=== PATIENT | female | born 1975 | race Caucasian/White ===

== ENCOUNTER 2016-08-22 14:40 | Inpatient (IN) | payer OTHER ==
[2016-08-22] MEDS ORDERED: LACTATED RINGERS 1,000 ML ONE (15:27)
[2016-08-22] MEDS ORDERED: BICITRA PO ONE (16:09)
[2016-08-22] MEDS ORDERED: PEPCID IV ONE (16:09)
[2016-08-22] MEDS ORDERED: REGLAN IV ONE (16:09)
[2016-08-22 16:32] LABS: Basophils % (Auto) 0.8 % (0.0-1.8); Eosinophils % (Auto) 0.1 % (0.0-4.3); Hematocrit 33.8 % (30.3-42.9); Hemoglobin 11.5 gm/dl (10.1-14.3); Mean Corpuscular HGB Conc 34 % (30-34); Mean Corpuscular Hemoglobin 32 pg (28-32); Mean Corpuscular Volume 93 fl (79-97); Platelet Count 137 K/mm3 (140-440); Red Blood Count 3.64 M/mm3 (3.65-5.03); White Blood Count 10.1 K/mm3 (4.5-11.0)
--- NOTE | 2016-08-22 16:34 | History and Physical Report ---
History of Present Illness Date of examination: 08/22/16 History of present illness: 42 EDC 31.2 weeks gestation presented to triage with c/o no FM since yesterday and generalized malaise. Voice early entry into care. Experienced small amount of first trimester vaginal bleeding with Rhogam and routine Rhogam at 28 weeks gestation. Denies any complications other than persistent hyperemesis x 7 days a week ago. Seen at office and diagnosis on flu given and Rx for Tamaflu started. Denies vaginal bleeding or LOF. Voice 20 week U/S was WNL. Denies history of CHTN, diabeties, PE, DVT. asthma, seizures, cancer, STI, recent travel abroad, surgeries or blood transfusions. Past History Past Medical History: no pertinent history Past Surgical History: no surgical history Social history: no significant social history, - Obstetrical History Expected Date of Delivery: 10/22/16 Actual Gestation: 31 Week(s) 2 Day(s) : 3 Para: 2 Number of Living Children: 2 Medications and Allergies Allergies Allergy/AdvReac Type Severity Reaction Status Date / Time No Known Allergies Allergy Verified 08/22/16 15:18 Home Medications Medication Instructions Recorded Confirmed Last Taken Type Acetaminophen [Shake That Ache] 500 mg PO Q6HR 08/22/16 08/22/16 08/22/16 09:00 History 1 Mucinex Dm ER 1,200-60 mg Tab 1 tab PO BID 08/22/16 08/22/16 08/22/16 09:00 History 1 Oseltamivir [Tamiflu] 75 mg PO BID 08/22/16 08/22/16 08/22/16 09:00 History 1 Pnv95/Ferrous Fumarate/FA 1 each PO DAILY 08/22/16 08/22/16 08/22/16 09:00 History [Prenavite Tablet] 1 Ranitidine HCl [Acid Control] 150 mg PO BID 08/22/16 08/22/16 08/22/16 09:00 History 1 Active Meds: Active Medications Cefazolin Sodium (Ancef/Sterile Water 2 Gm/20 Ml) 20 mls @ 80 mls/hr IV PREOP NR PRN Reason: Protocol Stop: 08/23/16 16:59 Lactated Ringer's (Lactated Ringers) 1,000 mls @ 2,250 mls/hr IV PREOP NR Stop: 08/23/16 17:27 Oxytocin/Sodium Chloride (Pitocin/Ns 20 Unit/1000ml Drip) 1,000 mls @ 500 mls/ hr IV TITR NR Stop: 08/23/16 16:59 Review of Systems Constitutional: anorexia, fatigue, weakness, malaise, lethargy, poor appetite, no fever Breasts: deferred Gastrointestinal: nausea, vomiting Genitourinary: normal appearance - Vital Signs Vital signs: Vital Signs Pulse BP 86 124/66 08/22/16 15:14 08/22/16 15:14 Temp Pulse Resp BP Pulse Ox 97.7 F 92 H 20 124/66 96 08/22/16 15:52 08/22/16 16:30 08/22/16 15:52 08/22/16 15:14 08/22/16 16:30 - Physical Exam Lungs: Positive: Normal air movement Abdomen: Positive: normal appearance, tenderness Genitourinary (Female): Positive: normal external genitalia Vagina: Positive: normal moisture - Obstetrical FHR: category 3 Uterine Contraction Monitor Mode: External Cervical Dilatation: 1 Cervical Effacement Percentage: 0 station: -4 Uterine Contraction Pattern: Irregular Uterine Tone Measurement Phase: Resting Uterine Contraction Intensity: Mild Results Result Diagrams: 08/22/16 18:48 All other labs normal. Assessment and Plan A: IUP at 31.2 weeks gestation Absent FM x 24 hours Maternal Flu None Kazakh speaker Rh negative Category 3 tracing BPP 2/10 Abnormal U/S enlarge abdomen P: MD consult Stat C/S
[2016-08-22] MEDS ORDERED: MORPHINE ONE (16:43)
[2016-08-22] MEDS ORDERED: DIPRIVAN 10 MG/ML IV ONE (16:58)
[2016-08-22] MEDS ORDERED: LACTATED RINGERS 1,000 ML IV NR (17:00)
[2016-08-22] MEDS ORDERED: PITOCin/NS 20 UNIT/1000ML DRIP 1,000 ML IV NR (17:00)
[2016-08-22] MEDS ORDERED: ANCEF/STERILE WATER 2 GM/20 ML 20 ML IV NR (17:00)
[2016-08-22] MEDS ORDERED: METHERGINE IM ONE ×2 (17:05→17:24)
--- NOTE | 2016-08-22 17:11 | Ultrasound Report ---
FINAL REPORT PROCEDURE: US OB BPP WO NON-STRESS TECHNIQUE: Sonographic evaluation for breathing, movement, tone, and amniotic fluid volume was performed. CPT 97668 HISTORY: decreased movement COMPARISON: No prior studies are available for comparison. FINDINGS: Amniotic fluid volume: Normal-score 2. At least one vertical pocket > 2 cm or more in vertical axis. breathing: Abnormal, score 0 movement: Abnormal, score 0 tone: Abnormal, score 0 Score: 2 of 8 IMPRESSION: Abnormal biophysical profile, with total score 2 of 8.
[2016-08-22] MEDS ORDERED: TORADOL ONE (17:15)
[2016-08-22] MEDS ORDERED: NEO SYNEPHRINE ONE (17:15)
--- NOTE | 2016-08-22 17:16 | Ultrasound Report ---
FINAL REPORT PROCEDURE: US OB FOLLOW UP TECHNIQUE: Real-time limited sonographic examination was performed for evaluation of size, position, heartbeat, fluid volume for each fetus with image documentation (1 or more fetuses). CPT 79066 HISTORY: well-being COMPARISON: No prior studies are available for comparison. FINDINGS: FETUS IUP: Single living intrauterine . Position: Cephalic. Amniotic fluid volume: Amniotic fluid index measures 13.1 centimeters Heart rate and rhythm: 130 BPM, Regular . anatomic survey: Full survey was not performed. Note is made of ascites and pleural effusion. Limited evaluation of the placenta. MEASUREMENTS BPD: 8.3 centimeters, 33 weeks 2 days. HC: 30 centimeters, 33 weeks 2 days. AC: 33.6 centimeters, 37 weeks 4 days. This is likely increased related to ascites. FL: 5.7 centimeters, 29 weeks 6 days. Mean Gestational Age (composite criteria): 33 weeks 4 days based on biometry. Ratio biometry: Increased abdominal circumference. Estimated Weight: 2497 grams. Estimated Due Date (earliest scan): 10/06/2016. IMPRESSION: 1. Single living intrauterine gestation at approximately 33 weeks 4 days. 2. EDC by US 10/06/2016. 3. ascites and pleural effusion are noted
[2016-08-22] MEDS ORDERED: CYTOTEC ONE (17:22)
[2016-08-22] MEDS ORDERED: CYTOTEC PO ONE (17:24)
[2016-08-22 17:41] LABS: ISTAT Base Excess -13; ISTAT HCO3 15.9; ISTAT PCO2 49.2 (35-45); ISTAT PH 7.117 (7.35-7.45); ISTAT PO2 20 (80-105); ISTAT SO2 19; ISTAT TCO2 17
[2016-08-22] MEDS ORDERED: NACL 0.9% IR ONE (17:43)
[2016-08-22] MEDS ORDERED: WATER FOR IRRIG STERILE IR ONE (17:44)
[2016-08-22 17:46] LABS: ISTAT Base Excess -19; ISTAT HCO3 11.4; ISTAT PCO2 38.7 (35-45); ISTAT PH 7.078 (7.35-7.45); ISTAT PO2 25 (80-105); ISTAT SO2 28; ISTAT TCO2 13
--- NOTE | 2016-08-22 18:17 | Anesthesia Consultation ---
Anesthesia Consult and Med Hx Date of service: 08/22/16 - Airway Anesthetic Teeth Evaluation: Good ROM Head & Neck: Adequate Mental/Hyoid Distance: Adequate Mallampati Class: Class II Intubation Access Assessment: Good - Pulmonary Exam CTA: Yes - Cardiac Exam Cardiac Exam: No Murmur - Pre-Operative Health Status ASA Pre-Surgery Classification: ASA2 Proposed Anesthetic Plan: Spinal - Pulmonary Hx Asthma: No COPD: No Hx Pneumonia: No - Cardiovascular System Hx Hypertension: No - Central Nervous System Hx Seizures: No Hx Psychiatric Problems: No - Endocrine Hx Renal Disease: No Hx End Stage Renal Disease: No Hx Hypothyroidism: No Hx Hyperthyroidism: No - Hematic Hx Anemia: No - Other Systems Hx Alcohol Use: No
--- NOTE | 2016-08-22 18:17 | Post Anesthesia Evaluation ---
- Post Anesthesia Evaluation Patient Participated: Yes Airway Patent: Yes Stable Respiratory Function: Yes Nausea/Vomiting: No Temp > 96.8F: Yes Pain Manageable: Yes Adequeate Hydration: Yes Anesthesia Complications: No
[2016-08-22] MEDS ORDERED: LANSINOH TP PRN (18:28)
[2016-08-22] MEDS ORDERED: PERCOCET 5/325 PO PRN ×2 (18:28→18:56)
[2016-08-22] MEDS ORDERED: MOTRIN PO PRN (18:28)
[2016-08-22] MEDS ORDERED: TYLENOL PO PRN (18:28)
[2016-08-22] MEDS ORDERED: TUCKS PAD TP PRN (18:28)
[2016-08-22] MEDS ORDERED: NARCAN 0.4 MG/1 ML IV PRN (18:28)
--- NOTE | 2016-08-22 18:54 | Operative Report ---
Operative Report Operative Report: Date of operation 08/22/16 Diagnosis #1 Intrauterine gestation at 31+ weeks #2 NRFHT #3 viral infection #4 BPP 09/11 #5 meconium Postop diagnosis #1-6 same as above #7 delivery of viable fetus male infant operation performed primary low segment transverse #9 PP hemorrhage #10 uterine atony Surgeon :Dr. Melton Anesthesia: General Anesthesiologist: Dr. Mendoza Estimated blood loss 1200 mL Lindsey catheter to bladder 400 mL clear yellow urine Operative findings A viable male infant with Apgars 1 and 3 and 5 and 7 was delivered, amnionic fluid was dark green, the uterus fallopian tubes and ovaries were normal Description of the operation The patient was brought to the operating suite in stable condition in which a spinal performed . Indwelling catheter in place and the bladder. The patient was placed supine in the operating room table and rolled to her left side with a wedge next sentence the abdomen was prepped and draped in an normal standard fashion for next sentence after testing with forceps to assure adequate anesthetic level which was adequate. The surgery was commenced since we had counseled the patient extensively regarding the risk of surgery including but not limited to stroke embolus phlebitis pain infection hemorrhage as well as injury to the and internal organs such as the bowel bladder blood vessels no kidneys ureters and pelvic organs The patient was aware of the postop morbidity issues and recovery time frames. The patient was aware she can have adhesions which can result in obstruction of loop of bowel or ureter or chronic pain And that she was aware that she should have hemorrhage and required blood transfusion the small chance of exposure to hepatitis or HIV disease. With the scalpel in a sterile skin incision was made dissection was carried out to the sharply with the to the subcutaneous tissues and fascia in a transverse plane with the scalpel electrocautery and curved Jain's scissors were used to fashion was sharply freed up superiorly and inferiorly from the underlying rectus muscles which were bluntly and sharply divided the peritoneum was entered carefully in a clear space with the curved hemostat the peritoneal incision was then extended vertically with the Metzenbaum scissors were placed. A bladder flap was created by incising transversely through the peritoneum and vesicouterine fold and then bluntly dissecting the bladder distally. With the scalpel a low transverse hysterotomy was commenced. The myometrium was scored with the scalpel and the uterine cavity was actually entered bluntly with a curved hemostat the period the uterine incision was then extended laterally with the wastewater treatment plant operator's fingers. An intrauterine hand was placed and the buttocks was lifted and delivered brought through the pelvis and the uterine incision with gentle pressure the head was also delivered after the arms the left and the right arms were delivered the nasopharynx and oropharynx was suctioned cord was double clamped and transected was then handed off to awaiting Peds service noticeable large abdomen, Cord blood was collected for routine testing IV Pitocin and antibiotics were also administered and approximately given previous to the case. The placenta was manually removed ( large and green in appearance )the uterine cavity was then curettage which a dry sponge and freed of the remaining membranes. The edge of the uterine incision was grasped with Palmer clamps with the massage and Pitocin the uterus began to firm up normally. The uterine incision was then closed in 2 layers of 0 Vicryl sutures. The first uterine suture was then placed in the endometrium and the myometrium the second suture placed through the endopelvic fascia and also reincorporated the bladder flap peritoneum. an extension on the left side of uterus repaired with a 2-0 vicryl and surgicell for hemostais. Peritoneal lavage was then performed at the incision the pelvis and gutters were irrigated and the suction and cleared of all blood clots and amniotic fluid. The pelvis and gutters were irrigated and suctioned and cleared of all blood clots and amniotic fluid. Uterine incision was then reinspected and assure hemostasis. The uterus, tubes and ovaries were inspected and were normal. The uterus was noted to be floppy and boggy so we gave methergine Im and metherergine intrautuerine . Once we were satisfied with hemostasis attention was then turned to closure of the abdomen incision. The fascia was closed with a PDS and 2-0 vcryl closed subcutaneous >2cm and skin was closed with a staple followed by benzoin Telfa dressing. The patient was moved to the recovery room in stable condition with the Lindsey catheter draining clear yellow urine instruments sponge and needle counts correct 2 and estimated blood loss was 1200 mL's there were no complications.
--- NOTE | 2016-08-22 18:58 | Procedure Note ---
OB Delivery Note - Delivery Date of Delivery: 08/22/16 Surgeon: SAE MCHUGH Estimated blood loss: other (1200 ml) - Section Preop diagnosis: nonreassuring FHR tracing Postop diagnosis: same section procedure: section Disposition: floor Complications: intra-op hemorrhage, uterine atony - Infant A at 1 minute: 1 at 5 minutes: 3 (1,3,5,6) Gender: Male
[2016-08-22] MEDS ORDERED: PITOCin/NS 20 UNIT/1000ML DRIP 1,000 ML IV SCH (19:00)
[2016-08-22] MEDS ORDERED: SODIUM CHLORIDE FLUSH SYRINGE 10 ML IV NR (19:00)
[2016-08-22 19:48] LABS: Basophils % (Auto) 0.7 % (0.0-1.8); Eosinophils % (Auto) 0.8 % (0.0-4.3); Hematocrit 34.7 % (30.3-42.9); Hemoglobin 11.3 gm/dl (10.1-14.3); Mean Corpuscular HGB Conc 33 % (30-34); Mean Corpuscular Hemoglobin 31 pg (28-32); Mean Corpuscular Volume 96 fl (79-97); Platelet Count 115 K/mm3 (140-440); Red Blood Count 3.62 M/mm3 (3.65-5.03); Red Cell Distribution Width 14.3 % (13.2-15.2); White Blood Count 13.2 K/mm3 (4.5-11.0)
--- NOTE | 2016-08-22 20:02 | Consultation ---
History of Present Illness - Reason for Consult Consult date: 08/22/16 viral syndrome Requesting physician: SAE MELTON - History of Present Illness Miss Samaniego is a 41 yo female who was admitted today by OB service for absence of movements. She had emergent done today. As per Dr. Melton the delivered infant has hydrops and the mother has a history of a viral syndrome and therefore consult is called for evaluation of the viral syndrome; as per the patient she's been having body aches with runny nose and a cough which started 3 days ago. She was started on Tamiflu. She reported that she was not tested for the flu. Past History Past Medical History: No medical history Past Surgical History: No surgical history Social history: no significant social history, Family history: no significant family history Medications and Allergies Allergies Allergy/AdvReac Type Severity Reaction Status Date / Time No Known Allergies Allergy Verified 08/22/16 15:18 Home Medications Medication Instructions Recorded Confirmed Last Taken Type Acetaminophen [Shake That Ache] 500 mg PO Q6HR 08/22/16 08/22/16 08/22/16 09:00 History 1 Mucinex Dm ER 1,200-60 mg Tab 1 tab PO BID 08/22/16 08/22/16 08/22/16 09:00 History 1 Oseltamivir [Tamiflu] 75 mg PO BID 08/22/16 08/22/16 08/22/16 09:00 History 1 Pnv95/Ferrous Fumarate/FA 1 each PO DAILY 08/22/16 08/22/16 08/22/16 09:00 History [Prenavite Tablet] 1 Ranitidine HCl [Acid Control] 150 mg PO BID 08/22/16 08/22/16 08/22/16 09:00 History 1 Active Meds: Active Medications Acetaminophen (Tylenol) 650 mg PO Q4H PRN PRN Reason: Fever >100.5/MARCUS Acetaminophen/Hydrocodone Bitart ([place] 5/325) 1 each PO Q6H PRN PRN Reason: Pain, Moderate (4-6) Diphtheria/Tetanus/Acell Pertussis (Boostrix) 0.5 ml IM .ONCE ONE Stop: 08/23/16 18:31 Ferrous Sulfate (Feosol) 325 mg PO QDAY VANESSA Cefazolin Sodium (Ancef/Sterile Water 2 Gm/20 Ml) 20 mls @ 80 mls/hr IV PREOP NR PRN Reason: Protocol Stop: 08/23/16 16:59 Lactated Ringer's (Lactated Ringers) 1,000 mls @ 2,250 mls/hr IV PREOP NR Stop: 08/23/16 17:27 Oxytocin/Sodium Chloride (Pitocin/Ns 20 Unit/1000ml Drip) 1,000 mls @ 500 mls/ hr IV TITR NR Stop: 08/23/16 16:59 Oxytocin/Sodium Chloride (Pitocin/Ns 20 Unit/1000ml Drip) 1,000 mls @ 250 mls/ hr IV TITR VANESSA Ibuprofen (Motrin) 800 mg PO Q6H PRN PRN Reason: Pain, Mild (1-3) Measles/Mumps/Rubella Vaccine Live (M-M-R Ii Vaccine) 0.5 ml SUB-Q .ONCE ONE Stop: 08/23/16 18:31 Morphine Sulfate (Morphine) 4 mg IV Q4H PRN PRN Reason: Pain , Severe (7-10) Multi-Ingredient Ointment (Lansinoh) 1 applic TP PRN PRN PRN Reason: dryness/cracking Naloxone HCl (Narcan 0.4 Mg/1 Ml) 0.1 mg IV Q2MIN PRN PRN Reason: Res Rate </= 8 or 02 SAT < 92% Oxycodone/Acetaminophen (Percocet 5/325) 1 tab PO Q6H PRN PRN Reason: Pain, Moderate (4-6) Oxycodone/Acetaminophen (Percocet 5/325) 2 tab PO Q6H PRN PRN Reason: Pain, Moderate (4-6) Sodium Chloride (Sodium Chloride Flush Syringe 10 Ml) 10 ml IV PRN NR Stop: 08/25/16 18:59 Witch Chloe/Glycerin (Tucks Pad) 1 each TP PRN PRN PRN Reason: Hemorrhoids/cleansing/soothing Review of Systems All systems: negative Constitutional: no weight loss, no weight gain, no fever Ears, nose, mouth and throat: no ear pain, no ear discharge, no tinnitis, no decreased hearing Breasts: normal Cardiovascular: no chest pain, no orthopnea, no palpitations, no rapid/ irregular heart beat Respiratory: no cough, no cough with sputum, no excessive sputum, no shortness of breath Gastrointestinal: no abdominal pain, no nausea, no vomiting, no diarrhea Menstruation: other (post c section today ) Musculoskeletal: no neck stiffness, no neck pain, no shooting arm pain Integumentary: no rash, no pruritis, no redness, no sores Neurological: no head injury, no transient paralysis, no paralysis, no weakness , no parathesias Psychiatric: no anxiety, no memory loss, no change in sleep habits, no sleep disturbances, no insomnia, no hypersomnia Endocrine: no cold intolerance, no heat intolerance, no polyphagia, no excessive thirst Hematologic/Lymphatic: no easy bruising, no easy bleeding Allergic/Immunologic: no urticaria, no allergic rhinitis Exam - Constitutional Vitals: Temp Pulse Resp BP Pulse Ox 94.5 F L 61 16 123/74 94 08/22/16 19:00 08/22/16 19:00 08/22/16 19:00 08/22/16 19:00 08/22/16 19:00 General appearance: Present: no acute distress, well-nourished - EENT Eyes: Present: PERRL, EOM intact. Absent: scleral icterus, conjunctival injection ENT: hearing intact, clear oral mucosa, no oropharyngeal erythema, no poor dentition - Neck Neck: Present: supple, normal ROM. Absent: enlarged thyroid, masses or JVD - Respiratory Respiratory effort: normal Respiratory: negative: diminished, rales, rhonchi, wheezing - Cardiovascular Rhythm: regular Heart Sounds: Present: S1 & S2 - Extremities Extremities: no ischemia, pulses intact, pulses symmetrical, No edema - Abdominal General gastrointestinal: Present: soft, non-tender, normal bowel sounds Female genitourinary: Present: deferred - Rectal Rectal Exam: deferred - Integumentary Integumentary: Present: clear - Musculoskeletal Musculoskeletal: strength equal bilaterally - Psychiatric Psychiatric: appropriate mood/affect, intact judgment & insight, cooperative - Neurologic Neurologic: CNII-XII intact, moves all extremities Results - Labs CBC & Chem 7: 08/22/16 18:48 Labs: Abnormal lab results 08/22/16 08/22/16 08/22/16 Range/Units 16:00 17:38 17:43 WBC (4.5-11.0) K/mm3 RBC 3.64 L (3.65-5.03) M/mm3 Plt Count 137 L (140-440) K/mm3 Lymph % (Auto) 12.3 L (13.4-35.0) % Seg Neutrophils % 81.9 H (40.0-70.0) % Seg Neutrophils # 8.3 H (1.8-7.7) K/mm3 POC ABG pH 7.117 L 7.078 L (7.35-7.45) POC ABG pCO2 49.2 H (35-45) POC ABG pO2 20 L 25 L (80-105) 08/22/16 Range/Units 18:48 WBC 13.2 H (4.5-11.0) K/mm3 RBC 3.62 L (3.65-5.03) M/mm3 Plt Count 115 L (140-440) K/mm3 Lymph % (Auto) 8.8 L (13.4-35.0) % Seg Neutrophils % 87.0 H (40.0-70.0) % Seg Neutrophils # 11.5 H (1.8-7.7) K/mm3 POC ABG pH (7.35-7.45) POC ABG pCO2 (35-45) POC ABG pO2 (80-105) - Imaging and Cardiology Chest x-ray: pending Assessment and Plan 1. Resolving viral upper respiratory tract infection-will swell patient for influenza. We will continue Tamiflu for an additional 2 days to complete a 5 day course. Patient is currently afebrile and is in fact hypothermic postoperatively. Supportive and symptomatic care 2. -post today, management is as per the primary team 3. Leukocytosis with left shift-we'll get chest x-ray in view of decreased breath sounds. We'll hold off antibiotics for now. We'll get blood cultures in view of leukocytosis and hypothermia. Monitor white count. Clinically does not appear septic 4. DVT prophylaxis-as per the primary team Thanks for consulting us and we'll follow her with you
[2016-08-22 20:18] LABS: Urine Drugs of Abuse Note Disclamer
--- NOTE | 2016-08-22 21:22 | XRay Report ---
FINAL REPORT EXAM: XR CHEST 1V AP HISTORY: eval for pneumonia TECHNIQUE: AP portable view of the chest. PRIORS: None. FINDINGS: The cardiac silhouette is moderately enlarged. The lungs are clear. The bones and soft tissues are unremarkable. IMPRESSION: Moderate cardiomegaly.
[2016-08-22] MEDS: FEOSOL PO SCH (23:21)
[2016-08-22] MEDS ORDERED: D5LR 1,000 ML IV SCH (23:45)
[2016-08-23] MEDS: NORCO 5/325 PO PRN
[2016-08-23] MEDS ORDERED: LACTATED RINGERS 1,000 ML IV SCH ×2 (02:00→06:00)
[2016-08-23] MEDS: METHERGINE PO SCH ×2 (04:40)
[2016-08-23 06:10] LABS: Basophils % (Auto) 0.4 % (0.0-1.8); Eosinophils % (Auto) 1.2 % (0.0-4.3); Hematocrit 30.3 % (30.3-42.9); Hemoglobin 9.9 gm/dl (10.1-14.3); Mean Corpuscular HGB Conc 33 % (30-34); Mean Corpuscular Hemoglobin 31 pg (28-32); Mean Corpuscular Volume 96 fl (79-97); Platelet Count 125 K/mm3 (140-440); Red Blood Count 3.16 M/mm3 (3.65-5.03); Red Cell Distribution Width 14.8 % (13.2-15.2)
--- NOTE | 2016-08-23 07:52 | Event Note ---
Date: 08/23/16 Was called at 0700 about Urine output 20 cc after 1000 bolus. Nurse concerned about jaundice and per the nurse noted level at 8. I immediatly called for a IVF bolus of another 500 cc and ordered CMP and liver enzymes and lupus panel. And proceeded to hospital for evaluation. Patient was seen by internal meds at recovery for viral illness and evaluation of status concerning disposition whether PP vs ICU vs Med surg. Per Dr. Castellanos patient was stable and ordered cxr and swab for influenza and recommended PP floor with normal respiratory 2 precautions. Overnight the nurse has stated that patient was sleeping and reported no pain. lethargic, yellow, VSS 98.2 84 22 76/58 sat 94 on 2 L NC CVS: RRR lungs: crackles and rales appreciated on the left abd: soft nD min tenderness dressing clean dry intact lochia minimal to scant ext: scd no clubbing no calf tenderness labs 11-9.9 hgb hep c and hep B neg EKG normal sinus rhythm junction st depression A/P PPD#1 s/p stat csec secondary to NRFHT hypotension dspite fluid bolus oliguiria - perhaps due to dehydration continue IVF bolus s/p 2 L cardiomegally moderate -ekg and stat echo sent d/w Dr. Carrion cardiology agree with echo, and transfer Transfer to ICU stat and D/w Dr. Catherine as we transferred patient to ICU. family aware of status and is currently with baby at other facility [facility]
[2016-08-23 08:09] LABS: Hemoglobin 9.7 gm/dl (10.1-14.3)
[2016-08-23 08:31] LABS: Albumin 1.6 g/dL (3.9-5); Albumin/Globulin Ratio 0.6 %; BUN/Creatinine Ratio 5.8; Bilirubin,Direct 3.9 mg/dL (0-0.2); Bilirubin,Indirect 0.4 mg/dL; Bilirubin,Total 4.3 mg/dL (0.1-1.2); Calcium 8.5 mg/dL (8.4-10.2); Chloride 103.5 mmol/L (98-107); Potassium 5.9 mmol/L (3.6-5.0); Total Protein 4.3 g/dL (6.3-8.2)
[2016-08-23] MEDS ORDERED: D50W (25GM) IV ONE ×2 (08:38→10:00)
--- NOTE | 2016-08-23 08:40 | Progress Note ---
Subjective Date of service: 08/23/16 Principal diagnosis: s/p , POD #1 Interval history: Patient is a 41 yo F s/p yesterday for decreased movement and low Biophysical profile under spinal anesthesia. Per nurse patient has been having low blood pressures and an episode of low oxygen saturations since the c- section. Patient had a recent viral illness as well. She is currently being transferred to ICU for further management. Patient does not speak Lithuanian so nurse at bedside used as agricultural lender. Patient very lethargic and but following commands. Able to move lower extremities on command but weak. Would not lift legs. Sensation intact. No fevers but episode of hypothermia with increasing white count. Will continue to follow with you. Objective - Constitutional Vitals: Vital Signs - 12hr 08/22/16 08/22/16 08/22/16 20:30 20:39 20:49 Temperature 98.3 F Pulse Rate 77 79 Pulse Rate [ Left] Respiratory 13 23 Rate Blood Pressure 100/49 105/75 Blood Pressure [Left Arm] O2 Sat by Pulse 94 94 Oximetry 08/22/16 08/22/16 08/23/16 21:30 23:00 00:00 Temperature 98.6 F 98 F Pulse Rate Pulse Rate [ 80 80 Left] Respiratory 20 16 18 Rate Blood Pressure Blood Pressure 97/70 93/63 [Left Arm] O2 Sat by Pulse Oximetry 08/23/16 08/23/16 08/23/16 04:00 05:10 05:15 Temperature 98 F Pulse Rate Pulse Rate [ 56 L Left] Respiratory 22 16 16 Rate Blood Pressure Blood Pressure 81/45 [Left Arm] O2 Sat by Pulse 86 96 Oximetry 08/23/16 06:37 Temperature Pulse Rate Pulse Rate [ Left] Respiratory 18 Rate Blood Pressure Blood Pressure [Left Arm] O2 Sat by Pulse 98 Oximetry - Labs CBC & Chem 7: 08/23/16 07:50 Labs: Abnormal lab results 08/22/16 08/22/16 08/22/16 Range/Units 16:00 17:38 17:43 WBC (4.5-11.0) K/mm3 RBC 3.64 L (3.65-5.03) M/mm3 Hgb (10.1-14.3) gm/dl Hct (30.3-42.9) % Plt Count 137 L (140-440) K/mm3 Lymph % (Auto) 12.3 L (13.4-35.0) % [place] # (0.0-0.8) K/mm3 Seg Neutrophils % 81.9 H (40.0-70.0) % Seg Neutrophils # 8.3 H (1.8-7.7) K/mm3 POC ABG pH 7.117 L 7.078 L (7.35-7.45) POC ABG pCO2 49.2 H (35-45) POC ABG pO2 20 L 25 L (80-105) 08/22/16 08/23/16 08/23/16 Range/Units 18:48 05:19 07:50 WBC 13.2 H 17.0 H (4.5-11.0) K/mm3 RBC 3.62 L 3.16 L (3.65-5.03) M/mm3 Hgb 9.9 L 9.7 L (10.1-14.3) gm/dl Hct 30.0 L (30.3-42.9) % Plt Count 115 L 125 L (140-440) K/mm3 Lymph % (Auto) 8.8 L (13.4-35.0) % [place] # 1.1 H (0.0-0.8) K/mm3 Seg Neutrophils % 87.0 H 77.2 H (40.0-70.0) % Seg Neutrophils # 11.5 H 13.1 H (1.8-7.7) K/mm3 POC ABG pH (7.35-7.45) POC ABG pCO2 (35-45) POC ABG pO2 (80-105)
[2016-08-23 09:17] LABS: INR 2.11 (0.87-1.13)
[2016-08-23] MEDS ORDERED: ZOFRAN ONE (09:54)
[2016-08-23] MEDS ORDERED: NACL 0.9% 500 ML 500 ML IV ONE (10:05)
--- NOTE | 2016-08-23 11:39 | Consultation ---
History of Present Illness - Reason for Consult Consult date: 08/23/16 ICU management Requesting physician: SAE MCHUGH - History of Present Illness 41 y/o turkmen speaking only female, admitted yesterday for emergent . Fetus had hydrops and was transferred to [facility]. Mother was recovered and then sent to mother baby. Overnight, clinical status worsened and patient became oliguric. Her mental status decreased and renal function worsened. She has been transferred to the unit for further care. Consent obtained through electronic security technician and right IJ central line was placed. CVP was read at 2. History from patient states that she has not traveled. She has no prior history of liver disease. No new medications. She had uterine atony post delievery but no other major complications. LFT's and INR are elevated on first check this am. majority of family is downtown with the child. Past History Past Medical History: No medical history Past Surgical History: No surgical history Social history: no significant social history, Family history: no significant family history Medications and Allergies Allergies Allergy/AdvReac Type Severity Reaction Status Date / Time No Known Allergies Allergy Verified 08/22/16 15:18 Home Medications Medication Instructions Recorded Confirmed Last Taken Type Acetaminophen [Shake That Ache] 500 mg PO Q6HR 08/22/16 08/22/16 08/22/16 09:00 History 1 Mucinex Dm ER 1,200-60 mg Tab 1 tab PO BID 08/22/16 08/22/16 08/22/16 09:00 History 1 Oseltamivir [Tamiflu] 75 mg PO BID 08/22/16 08/22/16 08/22/16 09:00 History 1 Pnv95/Ferrous Fumarate/FA 1 each PO DAILY 08/22/16 08/22/16 08/22/16 09:00 History [Prenavite Tablet] 1 Ranitidine HCl [Acid Control] 150 mg PO BID 08/22/16 08/22/16 08/22/16 09:00 History 1 Active Meds: Active Medications Acetaminophen (Tylenol) 650 mg PO Q4H PRN PRN Reason: Fever >100.5/MARCUS Acetaminophen/Hydrocodone Bitart ([place]leton 5/325) 1 each PO Q6H PRN PRN Reason: Pain, Moderate (4-6) Last Admin: 08/23/16 00:00 Dose: 1 each Diphtheria/Tetanus/Acell Pertussis (Boostrix) 0.5 ml IM .ONCE ONE Stop: 08/23/16 18:31 Ferrous Sulfate (Feosol) 325 mg PO QDAY VANESSA Last Admin: 08/22/16 23:21 Dose: Not Given Cefazolin Sodium (Ancef/Sterile Water 2 Gm/20 Ml) 20 mls @ 80 mls/hr IV PREOP NR PRN Reason: Protocol Stop: 08/23/16 16:59 Oxytocin/Sodium Chloride (Pitocin/Ns 20 Unit/1000ml Drip) 1,000 mls @ 500 mls/ hr IV TITR NR Stop: 08/23/16 16:59 Oxytocin/Sodium Chloride (Pitocin/Ns 20 Unit/1000ml Drip) 1,000 mls @ 250 mls/ hr IV TITR VANESSA Dextrose/Lactated Ringer's (D5lr) 1,000 mls @ 125 mls/hr IV DIRECT VANESSA Ibuprofen (Motrin) 800 mg PO Q6H PRN PRN Reason: Pain, Mild (1-3) Measles/Mumps/Rubella Vaccine Live (M-M-R Ii Vaccine) 0.5 ml SUB-Q .ONCE ONE Stop: 08/23/16 18:31 Morphine Sulfate (Morphine) 4 mg IV Q4H PRN PRN Reason: Pain , Severe (7-10) Multi-Ingredient Ointment (Lansinoh) 1 applic TP PRN PRN PRN Reason: dryness/cracking Naloxone HCl (Narcan 0.4 Mg/1 Ml) 0.1 mg IV Q2MIN PRN PRN Reason: Res Rate </= 8 or 02 SAT < 92% Last Admin: 08/23/16 04:45 Dose: 0.1 mg Oxycodone/Acetaminophen (Percocet 5/325) 1 tab PO Q6H PRN PRN Reason: Pain, Moderate (4-6) Oxycodone/Acetaminophen (Percocet 5/325) 2 tab PO Q6H PRN PRN Reason: Pain, Moderate (4-6) Sodium Chloride (Sodium Chloride Flush Syringe 10 Ml) 10 ml IV PRN NR Stop: 08/25/16 18:59 Witch Chloe/Glycerin (Tucks Pad) 1 each TP PRN PRN PRN Reason: Hemorrhoids/cleansing/soothing Review of Systems ROS unobtainable: due to mental status Exam - Constitutional Vitals: Temp Pulse Resp BP Pulse Ox 98.3 F 95 H 18 103/66 99 08/23/16 08:45 08/23/16 11:00 08/23/16 11:00 08/23/16 11:00 08/23/16 11:00 General appearance: Present: no acute distress, obese, other (lethargic) - EENT Eyes: Present: PERRL, EOM intact ENT: hearing intact, clear oral mucosa, dentition normal - Neck Neck: Present: supple, normal ROM - Respiratory Respiratory effort: normal Respiratory: bilateral: CTA - Cardiovascular Rhythm: regular Heart Sounds: Present: S1 & S2 - Extremities Extremities: no ischemia - Abdominal General gastrointestinal: Present: soft, other (post surgical changes) Female genitourinary: Present: deferred - Rectal Rectal Exam: deferred - Neurologic Neurologic: other (very lethargic but no focal deficits noticed) Results - Labs CBC & Chem 7: 08/23/16 07:50 08/23/16 12:26 Labs: Abnormal lab results 08/22/16 08/22/16 08/22/16 Range/Units 16:00 17:38 17:43 WBC (4.5-11.0) K/mm3 RBC 3.64 L (3.65-5.03) M/mm3 Hgb (10.1-14.3) gm/dl Hct (30.3-42.9) % Plt Count 137 L (140-440) K/mm3 Lymph % (Auto) 12.3 L (13.4-35.0) % Stephenson # (0.0-0.8) K/mm3 Seg Neutrophils % 81.9 H (40.0-70.0) % Seg Neutrophils # 8.3 H (1.8-7.7) K/mm3 PT (12.2-14.9) Sec. INR (0.87-1.13) POC ABG pH 7.117 L 7.078 L (7.35-7.45) POC ABG pCO2 49.2 H (35-45) POC ABG pO2 20 L 25 L (80-105) Potassium (3.6-5.0) mmol/L Carbon Dioxide (22-30) mmol/L BUN (7-17) mg/dL Creatinine (0.7-1.2) mg/dL Glucose (65-100) mg/dL POC Glucose (70-105) Lactic Acid (0.7-2.0) mmol/L Total Bilirubin (0.1-1.2) mg/dL Direct Bilirubin (0-0.2) mg/dL AST (5-40) units/L ALT (7-56) units/L Alkaline Phosphatase (35-129) units/L Total Protein (6.3-8.2) g/dL Albumin (3.9-5) g/dL LDL Cholesterol Direct (50-130) mg/dL 08/22/16 08/23/16 08/23/16 Range/Units 18:48 05:19 07:50 WBC 13.2 H 17.0 H (4.5-11.0) K/mm3 RBC 3.62 L 3.16 L (3.65-5.03) M/mm3 Hgb 9.9 L 9.7 L (10.1-14.3) gm/dl Hct 30.0 L (30.3-42.9) % Plt Count 115 L 125 L (140-440) K/mm3 Lymph % (Auto) 8.8 L (13.4-35.0) % Stephenson # 1.1 H (0.0-0.8) K/mm3 Seg Neutrophils % 87.0 H 77.2 H (40.0-70.0) % Seg Neutrophils # 11.5 H 13.1 H (1.8-7.7) K/mm3 PT (12.2-14.9) Sec. INR (0.87-1.13) POC ABG pH (7.35-7.45) POC ABG pCO2 (35-45) POC ABG pO2 (80-105) Potassium (3.6-5.0) mmol/L Carbon Dioxide (22-30) mmol/L BUN (7-17) mg/dL Creatinine (0.7-1.2) mg/dL Glucose (65-100) mg/dL POC Glucose (70-105) Lactic Acid (0.7-2.0) mmol/L Total Bilirubin (0.1-1.2) mg/dL Direct Bilirubin (0-0.2) mg/dL AST (5-40) units/L ALT (7-56) units/L Alkaline Phosphatase (35-129) units/L Total Protein (6.3-8.2) g/dL Albumin (3.9-5) g/dL LDL Cholesterol Direct (50-130) mg/dL 08/23/16 08/23/16 08/23/16 Range/Units 07:50 08:19 08:39 WBC (4.5-11.0) K/mm3 RBC (3.65-5.03) M/mm3 Hgb (10.1-14.3) gm/dl Hct (30.3-42.9) % Plt Count (140-440) K/mm3 Lymph % (Auto) (13.4-35.0) % Stephenson # (0.0-0.8) K/mm3 Seg Neutrophils % (40.0-70.0) % Seg Neutrophils # (1.8-7.7) K/mm3 PT 23.7 H (12.2-14.9) Sec. INR 2.11 H (0.87-1.13) POC ABG pH (7.35-7.45) POC ABG pCO2 (35-45) POC ABG pO2 (80-105) Potassium 5.9 H (3.6-5.0) mmol/L Carbon Dioxide 12 L (22-30) mmol/L BUN 18 H (7-17) mg/dL Creatinine 3.1 H (0.7-1.2) mg/dL Glucose 39 L* (65-100) mg/dL POC Glucose 52 L (70-105) Lactic Acid (0.7-2.0) mmol/L Total Bilirubin 4.3 H (0.1-1.2) mg/dL Direct Bilirubin 3.9 H (0-0.2) mg/dL AST 676 H (5-40) units/L ALT 470 H (7-56) units/L Alkaline Phosphatase 394 H (35-129) units/L Total Protein 4.3 L (6.3-8.2) g/dL Albumin 1.6 L (3.9-5) g/dL LDL Cholesterol Direct 38 L (50-130) mg/dL 08/23/16 Range/Units 09:25 WBC (4.5-11.0) K/mm3 RBC (3.65-5.03) M/mm3 Hgb (10.1-14.3) gm/dl Hct (30.3-42.9) % Plt Count (140-440) K/mm3 Lymph % (Auto) (13.4-35.0) % Stephenson # (0.0-0.8) K/mm3 Seg Neutrophils % (40.0-70.0) % Seg Neutrophils # (1.8-7.7) K/mm3 PT (12.2-14.9) Sec. INR (0.87-1.13) POC ABG pH (7.35-7.45) POC ABG pCO2 (35-45) POC ABG pO2 (80-105) Potassium (3.6-5.0) mmol/L Carbon Dioxide (22-30) mmol/L BUN (7-17) mg/dL Creatinine (0.7-1.2) mg/dL Glucose (65-100) mg/dL POC Glucose (70-105) Lactic Acid 10.0 H* (0.7-2.0) mmol/L Total Bilirubin (0.1-1.2) mg/dL Direct Bilirubin (0-0.2) mg/dL AST (5-40) units/L ALT (7-56) units/L Alkaline Phosphatase (35-129) units/L Total Protein (6.3-8.2) g/dL Albumin (3.9-5) g/dL LDL Cholesterol Direct (50-130) mg/dL - Imaging and Cardiology Chest x-ray: image reviewed (mild cardiomegaly but clear. Central line in place , no PTX) Assessment and Plan 41 y/o female with acute encephalopathy, liver failure and acute renal failure of unknown etiology. 1. IVF resuscitation, given her low CVP 2. Will check CVP per protocol 3. Add zosyn empiric therapy, renally dosed, pharmacy to help 4. Once enough urine, will send urine lytes, will likely need renal ultrasound 5. Serial chemistries, lactic acid's and INR's 6. Two of FFP given during placement of central line 7. Follow up labs from OB 8. Check HIV 9. Will likely need abdominal ultrasound with dopplers given new onset liver disease 10. ABG 11. Continue D5W with q1 hour fingersticks Overall prognosis is guarded. Very low threshold for transfer if liver numbers worsen CCT 31 minutes.
--- NOTE | 2016-08-23 12:27 | XRay Report ---
Single view chest: Compared to 08/22/16. History: Right jugular central line. Findings: Cardiomegaly. Trachea is midline. Tip of right central line in lower superior vena cava. No consolidation, pneumothorax or definite pleural effusion. Impression: Stable right central line. No acute lung changes.
[2016-08-23] MEDS ORDERED: NACL 0.9% 500 ML 500 ML ONE (12:30)
[2016-08-23] MEDS ORDERED: NACL 0.9% 1000 ML 1,000 ML IV ONE ×5 (12:44→23:26)
[2016-08-23 12:56] LABS: Albumin 1.9 g/dL (3.9-5); Albumin/Globulin Ratio 0.7 %; BUN/Creatinine Ratio 6.12; Bilirubin,Total 4.4 mg/dL (0.1-1.2); Calcium 8.3 mg/dL (8.4-10.2); Chloride 103.5 mmol/L (98-107); Potassium 5.5 mmol/L (3.6-5.0); Total Protein 4.6 g/dL (6.3-8.2)
[2016-08-23] MEDS: FEOSOL PO SCH (13:12)
--- NOTE | 2016-08-23 13:25 | Progress Note ---
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 HELLP syndrome suspected, baby delivered, condition should improve with supportive measures, monitor renal function creatinine 2. Hypotension: IV fluids 3. Hyperglycemia: IV dextrose 4. Hyperkalemia: Replace 5. Severe protein calorie malnutrition albumin 1.6, present on admission History Interval history: Patient seen and examined. Follow up on viral syndrome. Patient has been moved to the ICU from [facility]. No cp, sob, n/v or severe headaches. Imaging, old records, testing, labs, nursing notes reviewed. Hospitalist Physical - Physical exam Narrative exam: GEN: WDWN, NAD, lethargic, orientated HEENT: NCAT, PERRL, EOMI, OP CLEAR NECK: SUPPLE, NO THYROMEGALY, NO JVD, NO LAD CVS: RRR, NORMAL S1S2 LUNGS/CHEST: CTA B, NORMAL CHEST EXPANSION B, GOOD AIR ENTRY B ABD: SOFT, DIFFUSELY TENDER LOWER QUADRANT STATUS POST SURGICAL INCISION WITH PRESSURE DRESSING APPLIED CLEAN DRY AND INTACT WITH PBS, NO REBOUND OR GUARDING EXT/SKIN: Bilateral leg edema MSK: FROM X 4 EXTREMITIES NEURO: CN 2-12 GROSSLY INTACT, NO NEW FOCAL DEFICITS PSY: CALM - Constitutional Vitals: Temp Pulse Resp BP Pulse Ox 97.8 F 86 14 119/71 100 08/23/16 13:10 08/23/16 13:00 08/23/16 13:00 08/23/16 13:00 08/23/16 13:00 General appearance: Present: no acute distress, well-nourished Results - Labs CBC & Chem 7: 08/23/16 07:50 08/23/16 12:26 Labs: Laboratory Last Values WBC 17.0 K/mm3 (4.5-11.0) H 08/23/16 05:19 RBC 3.16 M/mm3 (3.65-5.03) L 08/23/16 05:19 Hgb 9.7 gm/dl (10.1-14.3) L 08/23/16 07:50 Hct 30.0 % (30.3-42.9) L 08/23/16 07:50 MCV 96 fl (79-97) 08/23/16 05:19 MCH 31 pg (28-32) 08/23/16 05:19 MCHC 33 % (30-34) 08/23/16 05:19 RDW 14.8 % (13.2-15.2) 08/23/16 05:19 Plt Count 125 K/mm3 (140-440) L 08/23/16 05:19 Lymph % (Auto) 14.6 % (13.4-35.0) 08/23/16 05:19 Preble % (Auto) 6.6 % (0.0-7.3) 08/23/16 05:19 Eos % (Auto) 1.2 % (0.0-4.3) 08/23/16 05:19 Baso % (Auto) 0.4 % (0.0-1.8) 08/23/16 05:19 Lymph # 2.5 K/mm3 (1.2-5.4) 08/23/16 05:19 Preble # 1.1 K/mm3 (0.0-0.8) H 08/23/16 05:19 Eos # 0.2 K/mm3 (0.0-0.4) 08/23/16 05:19 Baso # 0.1 K/mm3 (0.0-0.1) 08/23/16 05:19 Seg Neutrophils % 77.2 % (40.0-70.0) H 08/23/16 05:19 Seg Neutrophils # 13.1 K/mm3 (1.8-7.7) H 08/23/16 05:19 Sickle Cell Screen Negative (Negative) 08/22/16 18:48 PT 23.7 Sec. (12.2-14.9) H 08/23/16 08:19 INR 2.11 (0.87-1.13) H 08/23/16 08:19 POC ABG pH 7.078 (7.35-7.45) L 08/22/16 17:43 POC ABG pCO2 38.7 (35-45) 08/22/16 17:43 POC ABG pO2 25 (80-105) L 08/22/16 17:43 POC ABG HCO3 11.4 08/22/16 17:43 POC ABG Total CO2 13 08/22/16 17:43 POC ABG O2 Sat 28 08/22/16 17:43 POC ABG Base Excess -19 08/22/16 17:43 FiO2 21 % 08/22/16 17:43 Sodium 139 mmol/L (137-145) 08/23/16 12:26 Potassium 5.5 mmol/L (3.6-5.0) H 08/23/16 12:26 Chloride 103.5 mmol/L (98-107) 08/23/16 12:26 Carbon Dioxide 13 mmol/L (22-30) L 08/23/16 12:26 Anion Gap 28 mmol/L 08/23/16 12:26 BUN 19 mg/dL (7-17) H 08/23/16 12:26 Creatinine 3.1 mg/dL (0.7-1.2) H 08/23/16 12:26 Estimated GFR 17 ml/min 08/23/16 12:26 BUN/Creatinine Ratio 6.12 % 08/23/16 12:26 Glucose 124 mg/dL (65-100) H 08/23/16 12:26 POC Glucose 52 (70-105) L 08/23/16 08:39 Lactic Acid 10.0 mmol/L (0.7-2.0) H* 08/23/16 09:25 Calcium 8.3 mg/dL (8.4-10.2) L 08/23/16 12:26 Total Bilirubin 4.4 mg/dL (0.1-1.2) H 08/23/16 12:26 Direct Bilirubin 3.9 mg/dL (0-0.2) H 08/23/16 07:50 Indirect Bilirubin 0.4 mg/dL 08/23/16 07:50 AST 521 units/L (5-40) H 08/23/16 12:26 ALT 377 units/L (7-56) H 08/23/16 12:26 Alkaline Phosphatase 345 units/L (35-129) H 08/23/16 12:26 Ammonia 57.0 umol/L (25-60) 08/23/16 12:26 Total Protein 4.6 g/dL (6.3-8.2) L 08/23/16 12:26 Albumin 1.9 g/dL (3.9-5) L 08/23/16 12:26 Albumin/Globulin Ratio 0.7 % 08/23/16 12:26 LDL Cholesterol Direct 38 mg/dL (50-130) L 08/23/16 07:50 Urine Opiates Screen Presumptive negative 08/22/16 18:30 Urine Methadone Screen Presumptive negative 08/22/16 18:30 Ur Barbiturates Screen Presumptive negative 08/22/16 18:30 Ur Phencyclidine Scrn Presumptive negative 08/22/16 18:30 Ur Amphetamines Screen Presumptive negative 08/22/16 18:30 U Benzodiazepines Scrn Presumptive negative 08/22/16 18:30 Urine Cocaine Screen Presumptive negative 08/22/16 18:30 U Marijuana (THC) Screen Presumptive negative 08/22/16 18:30 Drugs of Abuse Note Disclamer 08/22/16 18:30 Hep Bs Antigen Non-reactive (Negative) 08/22/16 18:34 Hepatitis C Antibody Non-reactive (NonReactive) 08/22/16 18:34 Rubella IgG Antibody Immune (Immune) 08/22/16 18:34 Blood Type O NEGATIVE 08/22/16 16:00 Antibody Screen Positive 08/22/16 16:00 Antibody Identification Anti-D (Passively Aquired) 08/22/16 16:00
[2016-08-23 13:46] LABS: HIV-1 Antigen p24 Non React (Non React); HIVR-1/2 Ab Non React (Non React)
[2016-08-23] MEDS: D5W 1,000 ML IV SCH ×2 (13:57→14:32)
--- NOTE | 2016-08-23 14:26 | Event Note ---
Date: 08/23/16 This is an addendum and followup note to the previous note dated 08/23/16 early this morning. Patient is italian speaking only. Patient was new to me as of yesterday when I was contacted by the CNM first call for OB. The patient was cross covered by our service for Dr. Yeison Phillips. The patient under investigating and speaking with daughter Jamir age 18 yo ( only speaking relative) that the patient had been ill for the last couple of days with flu like sx malaise, myalgia and URI. She was seen in clinic on Wednesday and was dx with flu and given Tamiflu. She arrived at triage c/ o decreased movement. CNM assessed and dx late decels with BPP of 2/10. Patiente was taken to OR and proceeded with c/s please see report. Immediately after c/s I consulted with medicine team ( Dr. Brown) as patient had previous sx of flu and respiratory issues and consulted about disposition. I had concerns for if this patiente was a candidate for PP stevenson or higher service ie med surg vs ICU for the demand of caring for this patient. Dr. Brown stated that the patient has the flu and stable and would not require isolation and she ordered CXR and rapid flu test. I received a phone call from the nurse at 5a stating urine output was inimal and added IVF bolus of 1 L as the patient clinically dehydrated. The charge nurse Madisyn called in concern of patient at 630a stating the patient looked jaundice with in outpue. I ordered another fluid bolus cmp, liver enzymes stat and to give Dr. Brown a page to reevaluate the patient for recent updates on the patient and stated that I was on my way to evaluate patient I arrived on unit and noticed BP hypotensive with poor urine output. Immediate concern for the patient and no response from medicine so i used the number from the previous nite that was called from Dr. Brown ([phone] again to ask for immediate re-eval and had the nurse re-page medicine( hospitalist). No answer. I received another number of edicine team and spoke with Medicine team and discussed that this patients needs immediate transfer and she stated that she could not give me a time that anyone would see the patient as the team needed to wait until all the patients would be divided up and distributed. I spoke with Dr. Carrion as reviewing CXR showing moderate cardiomyopathy and she recomended EKG stat that was already ordered and stat echo. Dr. Carrion expedited transfer by discussing with Dr. Catherine who approved transfer. I immmediately transferred the patient while physically transporting patient to ICU and discussing with Dr. Catherine previous care. I spoke with the patient and family via daughter when they returned from seeing baby in which was transferred yesterday. Patient is aware of the findings in detail. will continue to follow patient Obstetrically and will alert primary care doctor os events status as she will be caring 08/24/16.
[2016-08-23 16:18] LABS: INR 1.86 (0.87-1.13)
[2016-08-23] MEDS: ZOSYN/NS 2.25 GM/50ML 50 ML IV SCH ×2 (16:21→23:43)
[2016-08-23 16:22] LABS: Potassium 5.1 mmol/L (3.6-5.0)
[2016-08-23 16:37] LABS: ISTAT Base Excess -13; ISTAT HCO3 13.6; ISTAT PCO2 28.5 (35-45); ISTAT PH 7.288 (7.35-7.45); ISTAT PO2 66 (80-105); ISTAT SO2 91; ISTAT TCO2 14
[2016-08-23] MEDS ORDERED: SODIUM BICARBONATE 150 MEQ in D5W 1,000 ML IV SCH (17:00)
[2016-08-23] MEDS ORDERED: M-M-R II VACCINE SUB-Q ONE (18:30)
[2016-08-23] MEDS ORDERED: BOOSTRIX IM ONE (18:30)
[2016-08-23 20:54] LABS: Albumin 1.7 g/dL (3.9-5); Albumin/Globulin Ratio 0.7 %; BUN/Creatinine Ratio 6.55; Bilirubin,Total 4.9 mg/dL (0.1-1.2); Calcium 7.3 mg/dL (8.4-10.2); Chloride 105.5 mmol/L (98-107); Potassium 4.8 mmol/L (3.6-5.0); Total Protein 4.3 g/dL (6.3-8.2)
[2016-08-23 22:29] LABS: INR 1.98 (0.87-1.13)
[2016-08-24 05:17] LABS: Hematocrit 20.4 % (30.3-42.9); Hemoglobin 6.7 gm/dl (10.1-14.3); Mean Corpuscular HGB Conc 33 % (30-34); Mean Corpuscular Hemoglobin 31 pg (28-32); Mean Corpuscular Volume 94 fl (79-97); Platelet Count 102 K/mm3 (140-440); Red Blood Count 2.18 M/mm3 (3.65-5.03); Red Cell Distribution Width 14.3 % (13.2-15.2); White Blood Count 12.7 K/mm3 (4.5-11.0)
[2016-08-24 05:28] LABS: INR 1.93 (0.87-1.13)
[2016-08-24] MEDS ORDERED: NACL 0.9% 500 ML 500 ML IV ONE ×3 (05:34→18:00)
[2016-08-24 05:45] LABS: Albumin 1.6 g/dL (3.9-5); Albumin/Globulin Ratio 0.6 %; BUN/Creatinine Ratio 7.77; Bilirubin,Total 4.6 mg/dL (0.1-1.2); Calcium 6.8 mg/dL (8.4-10.2); Magnesium 2.1 mg/dL (1.7-2.3); Potassium 4.2 mmol/L (3.6-5.0); Total Protein 4.1 g/dL (6.3-8.2)
[2016-08-24] MEDS: ZOSYN/NS 2.25 GM/50ML 50 ML IV SCH ×2 (06:34→20:26)
[2016-08-24] MEDS ORDERED: NACL 0.9% 500 ML 500 ML ONE (08:45)
--- NOTE | 2016-08-24 09:00 | Echocardiography Report ---
Transthoracic Echocardiogram Indication: CARDIOMYOPATHY BP: 139/70 Conclusions *The left ventricular chamber size, wall thickness and systolic function are within normal limits. There are no wall motion abnormalities observed. Ejection fraction is normal. *The estimated ejection fraction is 55-60%. *Global left ventricular systolic function is normal. *The right ventricular chamber size and systolic function are within normal limits. *The aortic valve is trileaflet. The leaflets are thin with normal excursion. There is no aortic stenosis or regurgitation present. *The mitral valve appears normal in structure and function. *There is mild tricuspid regurgitation. *The right ventricular systolic pressure is estimated to be 30-35 mmHg. *There is mild pulmonic regurgitation. *There is a small pericardial effusion. *The pericardial effusion is seen adjacent to the left ventricle. *The pericardial effusion is seen adjacent to the right ventricle. *There is a moderate pleural effusion. Findings Procedure Info: The study quality is fair. Left Ventricle: The left ventricular chamber size, wall thickness and systolic function are within normal limits. There are no wall motion abnormalities observed. Ejection fraction is normal. The left ventricular chamber size is normal. Global left ventricular systolic function is normal. The estimated ejection fraction is 55-60%. Normal left ventricular diastolic filling is observed. Left Atrium: The left atrium is normal in size with no visual thrombus identified. The left atrial chamber size is normal. Right Ventricle: The right ventricular chamber size and systolic function are within normal limits. The right ventricular cavity size is normal. The right ventricular global systolic function is normal. No ventricular septal defect is visualized. Right Atrium: The right atrium appears normal. The right atrial cavity size is normal. No atrial septal defect is visualized. Aortic Valve: The aortic valve is trileaflet. The leaflets are thin with normal excursion. There is no aortic stenosis or regurgitation present. The aortic valve is trileaflet. There is no evidence of aortic regurgitation. Mitral Valve: The mitral valve appears normal in structure and function. Tricuspid Valve: There is mild tricuspid regurgitation. The right ventricular systolic pressure is estimated to be 30-35 mmHg. Pulmonic Valve: The pulmonic valve appears normal in structure and function. The pulmonic valve appears normal. There is mild pulmonic regurgitation. There is no pulmonic stenosis. Pericardium: There is a small pericardial effusion. The pericardial effusion is seen adjacent to the left ventricle. The pericardial effusion is seen adjacent to the right ventricle. There is a moderate pleural effusion. Venous: The inferior vena cava is not visualized. Measurements Chambers MM Name Value Normal Range Ao root diameter (MM) 2.7 cm (2 - 3.7) LA dimension (AP) MM 3.4 cm (1.9 - 4) LA:Ao ratio (MM) 1.26 ratio - AV cusp separation (MM) 2 cm (1.5 - 2.6) Chambers 2D Name Value Normal Range RVIDd (AP) 2D 3.45 cm (0.9 - 2.6) IVSd (2D) 0.74 cm (0.6 - 1.1) LVPWd (2D) 0.56 cm (0.6 - 1.1) IVS:LVPW ratio (2D) 1.34 ratio - LVIDd (2D) 4.95 cm (3.7 - 5.6) LVIDs (2D) 3.52 cm (2 - 3.8) LV FS (Teichholz) (2D) 28.9 % - LV FS (cube) (2D) 28.9 % - EF Teichholz (2D) 55.5 % - Ao root diameter (2D) 1.9 cm (2 - 3.7) LA dimension (AP) 2D 3.3 cm (1.9 - 4) LA:Ao ratio (2D) 1.74 ratio - Volumes/Mass Name Value Normal Range LA ESV SP 4CH (MOD) 40 ml - LA ESV SP 2CH (MOD) 46 ml - LA ESV BP (MOD) 45 ml - LA ESV BP (MOD) index 24.5 ml/m2 - Diastolic/Systolic Function Name Value Normal Range MV E-wave Vmax 1.09 m/sec - MV deceleration time 238 msec - MV A-wave Vmax 1.05 m/sec - MV E:A ratio 1 ratio - LV septal e' Vmax 0.12 m/sec - LV lateral e' Vmax 0.11 m/sec - LV E:e' septal ratio 9.3 ratio - LV E:e' lateral ratio 9.8 ratio - Aortic Valve Name Value Normal Range AV Vmax 1.55 m/sec - AV peak gradient 10 mmHg - LVOT diameter 1.9 cm - LVOT Vmax 1.3 m/sec - LVOT peak gradient 7 mmHg - NESS (continuity Vmax) 2.38 cm2 - Tricuspid Valve Name Value Normal Range TR Vmax 2.78 m/sec - TR peak gradient 31 mmHg - RAP 10 mmHg - RVSP 41 mmHg - Pulmonic Valve/Qp:Qs Name Value Normal Range PV Vmax 1.13 m/sec - PV peak gradient 5 mmHg - [place] end-diastolic Vmax 0.77 m/sec - PV acceleration time 177 msec -
--- NOTE | 2016-08-24 10:09 | Progress Note ---
Assessment and Plan POD 2. S/p primary c/s for non reassuring status. hads been transported. Pt currently in ICU. pt currently anemic hct=20. pt is responsive to instruction. complaining of only a little pain. BP 140' / 80's. currently above patient baseline of 110's / 60's. Can't r/o HELLP syndrome. Plan- consider transfusion, close monitoring Subjective - Subjective Date of service: 08/24/16 Principal diagnosis: s/p , POD #2 Interval history: Pt currently in ICU. pt noted to have elevated liver enzymes ( Improving), anemia and cardiomyopathy. Patient reports: pain well controlled [place]: transported Objective - Vital Signs Latest vital signs: Vital Signs Temp Pulse Pulse Resp BP Pulse Ox 08/24/16 09:28 97.8 F 71 14 146/87 100 08/24/16 09:22 69 15 145/83 100 08/24/16 09:13 97.7 F 74 16 145/83 97 08/24/16 09:08 76 14 145/83 96 08/24/16 09:00 73 18 145/83 96 08/24/16 08:10 73 15 129/78 95 08/24/16 08:00 97.2 F L 73 72 14 129/78 99 08/24/16 07:15 99 08/24/16 07:10 71 11 L 126/77 98 08/24/16 07:00 71 12 126/77 100 08/24/16 06:00 72 11 L 131/76 99 08/24/16 05:54 72 11 L 140/79 100 08/24/16 05:19 97.6 F 08/24/16 05:00 71 17 141/78 98 08/24/16 04:00 73 72 15 125/74 97 08/24/16 03:00 69 15 124/63 97 08/24/16 02:00 70 18 140/59 94 08/24/16 01:07 70 11 L 125/71 98 08/24/16 01:00 69 14 125/71 98 08/24/16 00:00 69 68 14 118/62 97 08/23/16 23:48 69 15 128/99 96 08/23/16 23:00 71 11 L 138/83 99 08/23/16 22:00 74 11 L 118/69 98 08/23/16 21:36 75 11 L 131/71 98 08/23/16 21:28 96.1 F L 08/23/16 21:00 75 14 126/73 96 08/23/16 20:51 97 08/23/16 20:00 74 74 15 138/74 95 08/23/16 19:41 97.1 F L 08/23/16 19:00 77 13 137/87 96 08/23/16 18:00 77 12 121/69 98 08/23/16 17:20 76 12 128/80 98 08/23/16 17:00 77 15 128/80 97 08/23/16 16:20 74 11 L 136/77 97 08/23/16 16:00 75 13 136/77 97 08/23/16 15:00 88 17 146/54 95 08/23/16 14:22 80 12 137/47 98 08/23/16 14:00 80 12 137/47 99 08/23/16 13:29 98.7 F 82 14 119/71 99 08/23/16 13:10 97.8 F 08/23/16 13:06 82 15 119/71 99 08/23/16 13:00 86 14 119/71 100 08/23/16 12:45 97.8 F 86 14 119/71 99 08/23/16 12:30 98.3 F 16 L 16 125/71 08/23/16 12:27 97.3 F L 95 H 14 120/76 08/23/16 12:24 95 H 15 114/73 96 08/23/16 12:11 100.0 F H 93 H 16 130/73 08/23/16 12:00 91 H 18 109/71 97 08/23/16 11:49 99.8 F H 97 H 16 120/65 08/23/16 11:37 100.0 F H 98 H 20 108/65 08/23/16 11:04 100 H 15 103/66 100 08/23/16 11:00 95 H 18 103/66 99 Intake and Output 08/23/16 08/24/16 08/24/16 22:59 06:59 14:59 Intake Total 2649 1650 225 Output Total 105 140 35 Balance 2544 1510 190 Intake: IV 2649 1650 225 D5w 1,000 ml @ 75 mls/hr 225 IV DIRECT [facility] Rx#: [id number] Zosyn/Ns 2.25 gm/50Ml 50 50 50 ml @ 100 mls/hr IV Q8HR [facility] Rx#:[id number] NaCl 0.9% 1000 ml 1,000 999 ml @ 999 mls/hr IV ONCE ONE Rx#:[id number] Sodium Bicarbonate 150 375 600 225 Meq In D5w 1,000 ml @ 75 mls/hr IV DIRECT [facility] Rx#:[id number] NaCl 0.9% 1000 ml 1,000 1000 1000 0 ml @ 999 mls/hr IV ONCE ONE Rx#:[id number] Oral 0 Blood Product 0 Leukoreduced Red Blood 0 Cells Unit [id number] Output: Urine 105 140 35 Indwelling Catheter 105 140 35 Other: Total, Intake Amount 0 Total, Output Amount 20 40 35 Voiding Method Indwelling Catheter Indwelling Catheter Weight 178.5 kg - Exam Breasts: Present: deferred Cardiovascular: Present: Regular rate, Normal S1, Normal S2 Abdomen: Present: normal appearance, soft, normal bowel sounds, other (dressing intact) Vulva: both: normal Uterus: Present: fundal height below umbilicus Extremities: Present: normal Incision: Present: normal, dressed - Labs Labs: Abnormal lab results 08/22/16 08/23/16 08/23/16 Range/Units 16:00 09:00 09:25 WBC (4.5-11.0) K/mm3 RBC (3.65-5.03) M/mm3 Hgb (10.1-14.3) gm/dl Hct (30.3-42.9) % Plt Count (140-440) K/mm3 PT (12.2-14.9) Sec. INR (0.87-1.13) POC ABG pH (7.35-7.45) POC ABG pCO2 (35-45) POC ABG pO2 (80-105) Potassium (3.6-5.0) mmol/L Chloride (98-107) mmol/L Carbon Dioxide (22-30) mmol/L BUN (7-17) mg/dL Creatinine (0.7-1.2) mg/dL Glucose (65-100) mg/dL POC Glucose 178 H (70-105) Lactic Acid 10.0 H* (0.7-2.0) mmol/L Calcium (8.4-10.2) mg/dL Total Bilirubin (0.1-1.2) mg/dL AST (5-40) units/L ALT (7-56) units/L Alkaline Phosphatase (35-129) units/L Lactate Dehydrogenase (91-180) units/L Total Creatine Kinase (30-135) units/L Total Protein (6.3-8.2) g/dL Albumin (3.9-5) g/dL Crossmatch See Detail 08/23/16 08/23/16 08/23/16 Range/Units 11:05 12:02 12:26 WBC (4.5-11.0) K/mm3 RBC (3.65-5.03) M/mm3 Hgb (10.1-14.3) gm/dl Hct (30.3-42.9) % Plt Count (140-440) K/mm3 PT (12.2-14.9) Sec. INR (0.87-1.13) POC ABG pH (7.35-7.45) POC ABG pCO2 (35-45) POC ABG pO2 (80-105) Potassium 5.5 H (3.6-5.0) mmol/L Chloride (98-107) mmol/L Carbon Dioxide 13 L (22-30) mmol/L BUN 19 H (7-17) mg/dL Creatinine 3.1 H (0.7-1.2) mg/dL Glucose 124 H (65-100) mg/dL POC Glucose 134 H 130 H (70-105) Lactic Acid (0.7-2.0) mmol/L Calcium 8.3 L (8.4-10.2) mg/dL Total Bilirubin 4.4 H (0.1-1.2) mg/dL AST 521 H (5-40) units/L ALT 377 H (7-56) units/L Alkaline Phosphatase 345 H (35-129) units/L Lactate Dehydrogenase (91-180) units/L Total Creatine Kinase (30-135) units/L Total Protein 4.6 L (6.3-8.2) g/dL Albumin 1.9 L (3.9-5) g/dL Crossmatch 08/23/16 08/23/16 08/23/16 Range/Units 12:49 15:30 15:30 WBC (4.5-11.0) K/mm3 RBC (3.65-5.03) M/mm3 Hgb (10.1-14.3) gm/dl Hct (30.3-42.9) % Plt Count (140-440) K/mm3 PT 21.4 H (12.2-14.9) Sec. INR 1.86 H (0.87-1.13) POC ABG pH (7.35-7.45) POC ABG pCO2 (35-45) POC ABG pO2 (80-105) Potassium 5.1 H (3.6-5.0) mmol/L Chloride (98-107) mmol/L Carbon Dioxide (22-30) mmol/L BUN (7-17) mg/dL Creatinine (0.7-1.2) mg/dL Glucose (65-100) mg/dL POC Glucose 145 H (70-105) Lactic Acid (0.7-2.0) mmol/L Calcium (8.4-10.2) mg/dL Total Bilirubin (0.1-1.2) mg/dL AST (5-40) units/L ALT (7-56) units/L Alkaline Phosphatase (35-129) units/L Lactate Dehydrogenase 511 H (91-180) units/L Total Creatine Kinase (30-135) units/L Total Protein (6.3-8.2) g/dL Albumin (3.9-5) g/dL Crossmatch 08/23/16 08/23/16 08/23/16 Range/Units 15:30 15:30 15:56 WBC (4.5-11.0) K/mm3 RBC (3.65-5.03) M/mm3 Hgb (10.1-14.3) gm/dl Hct (30.3-42.9) % Plt Count (140-440) K/mm3 PT (12.2-14.9) Sec. INR (0.87-1.13) POC ABG pH (7.35-7.45) POC ABG pCO2 (35-45) POC ABG pO2 (80-105) Potassium (3.6-5.0) mmol/L Chloride (98-107) mmol/L Carbon Dioxide (22-30) mmol/L BUN (7-17) mg/dL Creatinine (0.7-1.2) mg/dL Glucose (65-100) mg/dL POC Glucose 138 H (70-105) Lactic Acid 7.1 H* (0.7-2.0) mmol/L Calcium (8.4-10.2) mg/dL Total Bilirubin (0.1-1.2) mg/dL AST (5-40) units/L ALT (7-56) units/L Alkaline Phosphatase (35-129) units/L Lactate Dehydrogenase (91-180) units/L Total Creatine Kinase 1275 H (30-135) units/L Total Protein (6.3-8.2) g/dL Albumin (3.9-5) g/dL Crossmatch 08/23/16 08/23/16 08/23/16 Range/Units 16:19 17:30 18:02 WBC (4.5-11.0) K/mm3 RBC (3.65-5.03) M/mm3 Hgb (10.1-14.3) gm/dl Hct (30.3-42.9) % Plt Count (140-440) K/mm3 PT (12.2-14.9) Sec. INR (0.87-1.13) POC ABG pH 7.288 L (7.35-7.45) POC ABG pCO2 28.5 L (35-45) POC ABG pO2 66 L (80-105) Potassium (3.6-5.0) mmol/L Chloride (98-107) mmol/L Carbon Dioxide (22-30) mmol/L BUN (7-17) mg/dL Creatinine (0.7-1.2) mg/dL Glucose (65-100) mg/dL POC Glucose 109 H 123 H (70-105) Lactic Acid (0.7-2.0) mmol/L Calcium (8.4-10.2) mg/dL Total Bilirubin (0.1-1.2) mg/dL AST (5-40) units/L ALT (7-56) units/L Alkaline Phosphatase (35-129) units/L Lactate Dehydrogenase (91-180) units/L Total Creatine Kinase (30-135) units/L Total Protein (6.3-8.2) g/dL Albumin (3.9-5) g/dL Crossmatch 08/23/16 08/23/16 08/23/16 Range/Units 20:05 20:23 21:50 WBC (4.5-11.0) K/mm3 RBC (3.65-5.03) M/mm3 Hgb (10.1-14.3) gm/dl Hct (30.3-42.9) % Plt Count (140-440) K/mm3 PT 22.5 H (12.2-14.9) Sec. INR 1.98 H (0.87-1.13) POC ABG pH (7.35-7.45) POC ABG pCO2 (35-45) POC ABG pO2 (80-105) Potassium (3.6-5.0) mmol/L Chloride (98-107) mmol/L Carbon Dioxide 15 L (22-30) mmol/L BUN 19 H (7-17) mg/dL Creatinine 2.9 H (0.7-1.2) mg/dL Glucose 117 H (65-100) mg/dL POC Glucose 129 H (70-105) Lactic Acid (0.7-2.0) mmol/L Calcium 7.3 L (8.4-10.2) mg/dL Total Bilirubin 4.9 H (0.1-1.2) mg/dL AST 369 H (5-40) units/L ALT 258 H (7-56) units/L Alkaline Phosphatase 291 H (35-129) units/L Lactate Dehydrogenase (91-180) units/L Total Creatine Kinase (30-135) units/L Total Protein 4.3 L (6.3-8.2) g/dL Albumin 1.7 L (3.9-5) g/dL Crossmatch 08/23/16 08/23/16 08/23/16 Range/Units 21:50 21:50 22:16 WBC (4.5-11.0) K/mm3 RBC (3.65-5.03) M/mm3 Hgb (10.1-14.3) gm/dl Hct (30.3-42.9) % Plt Count (140-440) K/mm3 PT (12.2-14.9) Sec. INR (0.87-1.13) POC ABG pH (7.35-7.45) POC ABG pCO2 (35-45) POC ABG pO2 (80-105) Potassium (3.6-5.0) mmol/L Chloride (98-107) mmol/L Carbon Dioxide (22-30) mmol/L BUN (7-17) mg/dL Creatinine (0.7-1.2) mg/dL Glucose (65-100) mg/dL POC Glucose 134 H (70-105) Lactic Acid 4.6 H* (0.7-2.0) mmol/L Calcium (8.4-10.2) mg/dL Total Bilirubin (0.1-1.2) mg/dL AST (5-40) units/L ALT (7-56) units/L Alkaline Phosphatase (35-129) units/L Lactate Dehydrogenase (91-180) units/L Total Creatine Kinase 1410 H (30-135) units/L Total Protein (6.3-8.2) g/dL Albumin (3.9-5) g/dL Crossmatch 08/24/16 08/24/16 08/24/16 Range/Units 00:13 01:47 02:37 WBC (4.5-11.0) K/mm3 RBC (3.65-5.03) M/mm3 Hgb (10.1-14.3) gm/dl Hct (30.3-42.9) % Plt Count (140-440) K/mm3 PT (12.2-14.9) Sec. INR (0.87-1.13) POC ABG pH (7.35-7.45) POC ABG pCO2 (35-45) POC ABG pO2 (80-105) Potassium (3.6-5.0) mmol/L Chloride (98-107) mmol/L Carbon Dioxide (22-30) mmol/L BUN (7-17) mg/dL Creatinine (0.7-1.2) mg/dL Glucose (65-100) mg/dL POC Glucose 120 H 116 H 107 H (70-105) Lactic Acid (0.7-2.0) mmol/L Calcium (8.4-10.2) mg/dL Total Bilirubin (0.1-1.2) mg/dL AST (5-40) units/L ALT (7-56) units/L Alkaline Phosphatase (35-129) units/L Lactate Dehydrogenase (91-180) units/L Total Creatine Kinase (30-135) units/L Total Protein (6.3-8.2) g/dL Albumin (3.9-5) g/dL Crossmatch 08/24/16 08/24/16 08/24/16 Range/Units 03:25 04:10 05:00 WBC 12.7 H (4.5-11.0) K/mm3 RBC 2.18 L (3.65-5.03) M/mm3 Hgb 6.7 L D (10.1-14.3) gm/dl Hct 20.4 L D (30.3-42.9) % Plt Count 102 L (140-440) K/mm3 PT (12.2-14.9) Sec. INR (0.87-1.13) POC ABG pH (7.35-7.45) POC ABG pCO2 (35-45) POC ABG pO2 (80-105) Potassium (3.6-5.0) mmol/L Chloride (98-107) mmol/L Carbon Dioxide (22-30) mmol/L BUN (7-17) mg/dL Creatinine (0.7-1.2) mg/dL Glucose (65-100) mg/dL POC Glucose 108 H 114 H (70-105) Lactic Acid (0.7-2.0) mmol/L Calcium (8.4-10.2) mg/dL Total Bilirubin (0.1-1.2) mg/dL AST (5-40) units/L ALT (7-56) units/L Alkaline Phosphatase (35-129) units/L Lactate Dehydrogenase (91-180) units/L Total Creatine Kinase (30-135) units/L Total Protein (6.3-8.2) g/dL Albumin (3.9-5) g/dL Crossmatch 08/24/16 08/24/16 08/24/16 Range/Units 05:00 05:00 05:00 WBC (4.5-11.0) K/mm3 RBC (3.65-5.03) M/mm3 Hgb (10.1-14.3) gm/dl Hct (30.3-42.9) % Plt Count (140-440) K/mm3 PT 22.1 H (12.2-14.9) Sec. INR 1.93 H (0.87-1.13) POC ABG pH (7.35-7.45) POC ABG pCO2 (35-45) POC ABG pO2 (80-105) Potassium (3.6-5.0) mmol/L Chloride 108.0 H (98-107) mmol/L Carbon Dioxide 19 L (22-30) mmol/L BUN 21 H (7-17) mg/dL Creatinine 2.7 H (0.7-1.2) mg/dL Glucose (65-100) mg/dL POC Glucose (70-105) Lactic Acid 3.0 H* (0.7-2.0) mmol/L Calcium 6.8 L (8.4-10.2) mg/dL Total Bilirubin 4.6 H (0.1-1.2) mg/dL AST 303 H (5-40) units/L ALT 204 H (7-56) units/L Alkaline Phosphatase 280 H (35-129) units/L Lactate Dehydrogenase (91-180) units/L Total Creatine Kinase 1295 H (30-135) units/L Total Protein 4.1 L (6.3-8.2) g/dL Albumin 1.6 L (3.9-5) g/dL Crossmatch
--- NOTE | 2016-08-24 10:28 | Event Note ---
Date: 08/24/16 Discussed with ICU team- HELLP likely. Bp currently 140/100. Recommend Magnesium sulfate for seizure prevention. pt receiving 2 units of blood.
--- NOTE | 2016-08-24 10:40 | Progress Note ---
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 Hospitalist was called for viral illness, which was diagnosis prior to hospitalization. After patient was evaluated by Hospitalist, Dr. Brown, for the viral illness in recovery room after the ; she developed hypotension and jaundice. She was transferred to the ICU under the [facility] service. Operative note as follows, "Date of operation 08/22/16, Diagnosis #1 Intrauterine gestation at 31+ weeks, # 2 NRFHT, #3 viral infection, #4 BPP 09/11, #5 meconium, Postop diagnosis #1-6 same as above, #7 delivery of viable fetus male operation performed primary low segment transverse , #9 PP hemorrhage, #10 uterine atony, Surgeon :Dr. Melton Anesthesia: General Anesthesiologist: Dr. Mendoza Estimated blood loss 1200 mL, Lindsey catheter to bladder 400 mL clear yellow urine 1. HELLP syndrome suspected, baby delivered, condition should improve with supportive measures, monitor renal and liver functions 2. Hypotension: IV fluids 3. Hypoglycemia: IV dextrose 4. Hyperkalemia: Recheck 5. Severe protein calorie malnutrition albumin 1.6, present on admission New issue: drop in hct (expected), blood transfusion underway. Cr level decreased, liver transaminases are trending down, bp stable, hemodynamically improved History Interval history: Patient seen and examined. Follow up on viral syndrome. Patient has been moved to the ICU from [employer]. No cp, sob, n/v or severe headaches. Imaging, old records, testing, labs, nursing notes reviewed. She is lethargic, receiving blood transfusion. Hospitalist Physical - Physical exam Narrative exam: GEN: WDWN, ill appearing, NAD, lethargic, orientated x 2, missed year, poor recall CVS: RRR, NORMAL S1S2 LUNGS/CHEST: CTA B, NORMAL CHEST EXPANSION B, GOOD AIR ENTRY B ABD: SOFT, DIFFUSELY TENDER LOWER QUADRANT STATUS POST SURGICAL INCISION WITH PRESSURE DRESSING APPLIED CLEAN DRY AND INTACT WITH PBS, NO REBOUND OR GUARDING EXT/SKIN: Bilateral leg edema MSK: FROM X 4 EXTREMITIES NEURO: CN 2-12 GROSSLY INTACT, NO NEW FOCAL DEFICITS PSY: CALM - Constitutional Vitals: Temp Pulse Resp BP Pulse Ox 97.8 F 71 14 146/87 100 08/24/16 09:28 08/24/16 09:28 08/24/16 09:28 08/24/16 09:28 08/24/16 09:28 General appearance: Present: no acute distress, other (lethargic) Results - Labs CBC & Chem 7: 08/24/16 05:00 08/24/16 05:00 Labs: Laboratory Last Values WBC 12.7 K/mm3 (4.5-11.0) H 08/24/16 05:00 RBC 2.18 M/mm3 (3.65-5.03) L 08/24/16 05:00 Hgb 6.7 gm/dl (10.1-14.3) L D 08/24/16 05:00 Hct 20.4 % (30.3-42.9) L D 08/24/16 05:00 MCV 94 fl (79-97) 08/24/16 05:00 MCH 31 pg (28-32) 08/24/16 05:00 MCHC 33 % (30-34) 08/24/16 05:00 RDW 14.3 % (13.2-15.2) 08/24/16 05:00 Plt Count 102 K/mm3 (140-440) L 08/24/16 05:00 Lymph % (Auto) 14.6 % (13.4-35.0) 08/23/16 05:19 Greene % (Auto) 6.6 % (0.0-7.3) 08/23/16 05:19 Eos % (Auto) 1.2 % (0.0-4.3) 08/23/16 05:19 Baso % (Auto) 0.4 % (0.0-1.8) 08/23/16 05:19 Lymph # 2.5 K/mm3 (1.2-5.4) 08/23/16 05:19 Greene # 1.1 K/mm3 (0.0-0.8) H 08/23/16 05:19 Eos # 0.2 K/mm3 (0.0-0.4) 08/23/16 05:19 Baso # 0.1 K/mm3 (0.0-0.1) 08/23/16 05:19 Seg Neutrophils % 77.2 % (40.0-70.0) H 08/23/16 05:19 Seg Neutrophils # 13.1 K/mm3 (1.8-7.7) H 08/23/16 05:19 Sickle Cell Screen Negative (Negative) 08/22/16 18:48 PT 22.1 Sec. (12.2-14.9) H 08/24/16 05:00 INR 1.93 (0.87-1.13) H 08/24/16 05:00 POC ABG pH 7.288 (7.35-7.45) L 08/23/16 16:19 POC ABG pCO2 28.5 (35-45) L 08/23/16 16:19 POC ABG pO2 66 (80-105) L 08/23/16 16:19 POC ABG HCO3 13.6 08/23/16 16:19 POC ABG Total CO2 14 08/23/16 16:19 POC ABG O2 Sat 91 08/23/16 16:19 POC ABG Base Excess -13 08/23/16 16:19 FiO2 2 % 08/23/16 16:19 Sodium 141 mmol/L (137-145) 08/24/16 05:00 Potassium 4.2 mmol/L (3.6-5.0) 08/24/16 05:00 Chloride 108.0 mmol/L (98-107) H 08/24/16 05:00 Carbon Dioxide 19 mmol/L (22-30) L 08/24/16 05:00 Anion Gap 18 mmol/L 08/24/16 05:00 BUN 21 mg/dL (7-17) H 08/24/16 05:00 Creatinine 2.7 mg/dL (0.7-1.2) H 08/24/16 05:00 Estimated GFR 20 ml/min 08/24/16 05:00 BUN/Creatinine Ratio 7.77 % 08/24/16 05:00 Glucose 95 mg/dL (65-100) 08/24/16 05:00 POC Glucose 97 (70-105) 08/24/16 06:13 Lactic Acid 3.0 mmol/L (0.7-2.0) H* 08/24/16 05:00 Calcium 6.8 mg/dL (8.4-10.2) L 08/24/16 05:00 Magnesium 2.1 mg/dL (1.7-2.3) 08/24/16 05:00 Total Bilirubin 4.6 mg/dL (0.1-1.2) H 08/24/16 05:00 Direct Bilirubin 3.9 mg/dL (0-0.2) H 08/23/16 07:50 Indirect Bilirubin 0.4 mg/dL 08/23/16 07:50 AST 303 units/L (5-40) H 08/24/16 05:00 ALT 204 units/L (7-56) H 08/24/16 05:00 Alkaline Phosphatase 280 units/L (35-129) H 08/24/16 05:00 Ammonia 57.0 umol/L (25-60) 08/23/16 12:26 Lactate Dehydrogenase 511 units/L (91-180) H 08/23/16 15:30 Total Creatine Kinase 1295 units/L (30-135) H 08/24/16 05:00 Total Protein 4.1 g/dL (6.3-8.2) L 08/24/16 05:00 Albumin 1.6 g/dL (3.9-5) L 08/24/16 05:00 Albumin/Globulin Ratio 0.6 % 08/24/16 05:00 LDL Cholesterol Direct 38 mg/dL (50-130) L 08/23/16 07:50 Urine Opiates Screen Presumptive negative 08/22/16 18:30 Urine Methadone Screen Presumptive negative 08/22/16 18:30 Ur Barbiturates Screen Presumptive negative 08/22/16 18:30 Ur Phencyclidine Scrn Presumptive negative 08/22/16 18:30 Ur Amphetamines Screen Presumptive negative 08/22/16 18:30 U Benzodiazepines Scrn Presumptive negative 08/22/16 18:30 Urine Cocaine Screen Presumptive negative 08/22/16 18:30 U Marijuana (THC) Screen Presumptive negative 08/22/16 18:30 Drugs of Abuse Note Disclamer 08/22/16 18:30 RPR Nonreactive (Nonreactive) 08/22/16 18:34 Hep Bs Antigen Non-reactive (Negative) 08/22/16 18:34 Hepatitis C Antibody Non-reactive (NonReactive) 08/22/16 18:34 HIV 1&2 Antibody Rapid Non react (Non React) 08/23/16 09:25 HIV P24 Antigen Non react (Non React) 08/23/16 09:25 Rubella IgG Antibody Immune (Immune) 08/22/16 18:34 Blood Type O NEGATIVE 08/22/16 16:00 Antibody Screen Positive 08/22/16 16:00 Antibody Identification Anti-D (Passively Aquired) 08/22/16 16:00 KB % Cells Negative 08/22/16 Unknown Crossmatch See Detail 08/22/16 16:00
[2016-08-24] MEDS ORDERED: MAGNESIUM SULFATE 40GM/1000ML 1,000 ML IV SCH (11:00)
[2016-08-24] MEDS ORDERED: MAGNESIUM SULFATE 4GM/100ML 100 ML IV ONE (11:00)
[2016-08-24] MEDS ORDERED: D50W (25GM) IV ONE (11:53)
--- NOTE | 2016-08-24 12:30 | Progress Note ---
Assessment and Plan HELLP syndrome, suspected, status post Hypotension, resolved with IV fluids. Now more hypertensive Hypoglycemia: IV dextrose Abnormal liver enzymes Renal failure Hyperkalemia: Improving Metabolic encephalopathy? Recommendations, discuss with TREATING MACHINE OPERATOR: Complete PRBCs already ordered. I would not transfuse however after hemoglobin 7 Agree with magnesium sulfate If no improvement in blood pressure after the above, may need to initiate the patient on medication example labetalol. Discussed with nursing, will be notified if she failed to improve. Update ABGs and check acidosis Peripheral smear The there are care time was 40 minutes in patient evaluation [id number] coordination of care. Family was not available Subjective Date of service: 08/24/16 Principal diagnosis: HELLP syndrome, status post Interval history: Feels weak, no headaches or chest pain. Breathing appears to be fine. Sleepy Objective Vital Signs - 12hr 08/24/16 08/24/16 08/24/16 01:00 01:07 02:00 Temperature Pulse Rate 69 70 70 Pulse Rate [ From Monitor] Respiratory 14 11 L 18 Rate Blood Pressure 125/71 125/71 140/59 O2 Sat by Pulse 98 98 94 Oximetry 08/24/16 08/24/16 08/24/16 03:00 04:00 05:00 Temperature Pulse Rate 69 73 71 Pulse Rate [ 72 From Monitor] Respiratory 15 15 17 Rate Blood Pressure 124/63 125/74 141/78 O2 Sat by Pulse 97 97 98 Oximetry 08/24/16 08/24/16 08/24/16 05:19 05:54 06:00 Temperature 97.6 F Pulse Rate 72 72 Pulse Rate [ From Monitor] Respiratory 11 L 11 L Rate Blood Pressure 140/79 131/76 O2 Sat by Pulse 100 99 Oximetry 08/24/16 08/24/16 08/24/16 07:00 07:10 07:15 Temperature Pulse Rate 71 71 Pulse Rate [ From Monitor] Respiratory 12 11 L Rate Blood Pressure 126/77 126/77 O2 Sat by Pulse 100 98 99 Oximetry 08/24/16 08/24/16 08/24/16 08:00 08:10 09:00 Temperature 97.2 F L Pulse Rate 73 73 73 Pulse Rate [ 72 From Monitor] Respiratory 14 15 18 Rate Blood Pressure 129/78 129/78 145/83 O2 Sat by Pulse 99 95 96 Oximetry 08/24/16 08/24/1617 09:07 09:08 09:13 Temperature 97.7 F Pulse Rate 71 76 74 Pulse Rate [ From Monitor] Respiratory 15 14 16 Rate Blood Pressure 145/83 145/83 145/83 O2 Sat by Pulse 98 96 97 Oximetry 08/24/16 08/24/16 08/24/16 09:22 09:28 09:58 Temperature 97.8 F 97.7 F Pulse Rate 69 71 74 Pulse Rate [ From Monitor] Respiratory 15 14 15 Rate Blood Pressure 145/83 146/87 151/90 O2 Sat by Pulse 100 100 99 Oximetry 08/24/16 08/24/16 08/24/16 10:00 11:00 11:06 Temperature Pulse Rate 72 77 70 Pulse Rate [ From Monitor] Respiratory 15 13 18 Rate Blood Pressure 151/84 151/90 129/84 O2 Sat by Pulse 100 99 Oximetry 08/24/16 11:09 Temperature 97.7 F Pulse Rate 76 Pulse Rate [ From Monitor] Respiratory 16 Rate Blood Pressure O2 Sat by Pulse 99 Oximetry Constitutional: no acute distress, asleep Eyes: non-icteric ENT: oropharynx moist Neck: supple Ascultation: Bilateral: clear Cardiovascular: regular rate and rhythm Gastrointestinal: normoactive bowel sounds, non-distended Integumentary: normal Extremities: no cyanosis, no cyanosis, no cyanosis Neurologic: non-focal exam, pupils equal and round, CN II-XII normal, motor strength normal and CBC and BMP: 08/24/16 05:00 08/24/16 05:00 ABG, PT/INR, D-dimer: ABG POC ABG pH 7.288 (7.35-7.45) L 08/23/16 16:19 POC ABG pCO2 28.5 (35-45) L 08/23/16 16:19 POC ABG pO2 66 (80-105) L 08/23/16 16:19 POC ABG HCO3 13.6 08/23/16 16:19 POC ABG Total CO2 14 08/23/16 16:19 POC ABG O2 Sat 91 08/23/16 16:19 PT/INR, D-dimer PT 22.1 Sec. (12.2-14.9) H 08/24/16 05:00 INR 1.93 (0.87-1.13) H 08/24/16 05:00 Abnormal lab findings: Abnormal Labs 08/22/16 08/22/16 08/22/16 16:00 16:00 17:38 WBC RBC 3.64 L Hgb Hct Plt Count 137 L Lymph % (Auto) 12.3 L [place] # Seg Neutrophils % 81.9 H Seg Neutrophils # 8.3 H PT INR POC ABG pH 7.117 L POC ABG pCO2 49.2 H POC ABG pO2 20 L Potassium Chloride Carbon Dioxide BUN Creatinine Glucose POC Glucose Lactic Acid Calcium Total Bilirubin Direct Bilirubin AST ALT Alkaline Phosphatase Lactate Dehydrogenase Total Creatine Kinase Total Protein Albumin LDL Cholesterol Direct Crossmatch See Detail 08/22/16 08/22/16 08/23/16 17:43 18:48 05:19 WBC 13.2 H 17.0 H RBC 3.62 L 3.16 L Hgb 9.9 L Hct Plt Count 115 L 125 L Lymph % (Auto) 8.8 L [place] # 1.1 H Seg Neutrophils % 87.0 H 77.2 H Seg Neutrophils # 11.5 H 13.1 H PT INR POC ABG pH 7.078 L POC ABG pCO2 POC ABG pO2 25 L Potassium Chloride Carbon Dioxide BUN Creatinine Glucose POC Glucose Lactic Acid Calcium Total Bilirubin Direct Bilirubin AST ALT Alkaline Phosphatase Lactate Dehydrogenase Total Creatine Kinase Total Protein Albumin LDL Cholesterol Direct Crossmatch 08/23/16 08/23/16 08/23/16 07:50 07:50 08:19 WBC RBC Hgb 9.7 L Hct 30.0 L Plt Count Lymph % (Auto) [place] # Seg Neutrophils % Seg Neutrophils # PT 23.7 H INR 2.11 H POC ABG pH POC ABG pCO2 POC ABG pO2 Potassium 5.9 H Chloride Carbon Dioxide 12 L BUN 18 H Creatinine 3.1 H Glucose 39 L* POC Glucose Lactic Acid Calcium Total Bilirubin 4.3 H Direct Bilirubin 3.9 H AST 676 H ALT 470 H Alkaline Phosphatase 394 H Lactate Dehydrogenase Total Creatine Kinase Total Protein 4.3 L Albumin 1.6 L LDL Cholesterol Direct 38 L Crossmatch 08/23/16 08/23/16 08/23/16 08:39 09:00 09:25 WBC RBC Hgb Hct Plt Count Lymph % (Auto) [place] # Seg Neutrophils % Seg Neutrophils # PT INR POC ABG pH POC ABG pCO2 POC ABG pO2 Potassium Chloride Carbon Dioxide BUN Creatinine Glucose POC Glucose 52 L 178 H Lactic Acid 10.0 H* Calcium Total Bilirubin Direct Bilirubin AST ALT Alkaline Phosphatase Lactate Dehydrogenase Total Creatine Kinase Total Protein Albumin LDL Cholesterol Direct Crossmatch 08/23/16 08/23/16 08/23/16 11:05 12:02 12:26 WBC RBC Hgb Hct Plt Count Lymph % (Auto) [place] # Seg Neutrophils % Seg Neutrophils # PT INR POC ABG pH POC ABG pCO2 POC ABG pO2 Potassium 5.5 H Chloride Carbon Dioxide 13 L BUN 19 H Creatinine 3.1 H Glucose 124 H POC Glucose 134 H 130 H Lactic Acid Calcium 8.3 L Total Bilirubin 4.4 H Direct Bilirubin AST 521 H ALT 377 H Alkaline Phosphatase 345 H Lactate Dehydrogenase Total Creatine Kinase Total Protein 4.6 L Albumin 1.9 L LDL Cholesterol Direct Crossmatch 08/23/16 08/23/16 08/23/16 12:49 15:30 15:30 WBC RBC Hgb Hct Plt Count Lymph % (Auto) [place] # Seg Neutrophils % Seg Neutrophils # PT 21.4 H INR 1.86 H POC ABG pH POC ABG pCO2 POC ABG pO2 Potassium 5.1 H Chloride Carbon Dioxide BUN Creatinine Glucose POC Glucose 145 H Lactic Acid Calcium Total Bilirubin Direct Bilirubin AST ALT Alkaline Phosphatase Lactate Dehydrogenase 511 H Total Creatine Kinase Total Protein Albumin LDL Cholesterol Direct Crossmatch 08/23/16 08/23/16 08/23/16 15:30 15:30 15:56 WBC RBC Hgb Hct Plt Count Lymph % (Auto) [place] # Seg Neutrophils % Seg Neutrophils # PT INR POC ABG pH POC ABG pCO2 POC ABG pO2 Potassium Chloride Carbon Dioxide BUN Creatinine Glucose POC Glucose 138 H Lactic Acid 7.1 H* Calcium Total Bilirubin Direct Bilirubin AST ALT Alkaline Phosphatase Lactate Dehydrogenase Total Creatine Kinase 1275 H Total Protein Albumin LDL Cholesterol Direct Crossmatch 08/23/16 08/23/16 08/23/16 16:19 17:30 18:02 WBC RBC Hgb Hct Plt Count Lymph % (Auto) [place] # Seg Neutrophils % Seg Neutrophils # PT INR POC ABG pH 7.288 L POC ABG pCO2 28.5 L POC ABG pO2 66 L Potassium Chloride Carbon Dioxide BUN Creatinine Glucose POC Glucose 109 H 123 H Lactic Acid Calcium Total Bilirubin Direct Bilirubin AST ALT Alkaline Phosphatase Lactate Dehydrogenase Total Creatine Kinase Total Protein Albumin LDL Cholesterol Direct Crossmatch 08/23/16 08/23/16 08/23/16 20:05 20:23 21:50 WBC RBC Hgb Hct Plt Count Lymph % (Auto) [place] # Seg Neutrophils % Seg Neutrophils # PT 22.5 H INR 1.98 H POC ABG pH POC ABG pCO2 POC ABG pO2 Potassium Chloride Carbon Dioxide 15 L BUN 19 H Creatinine 2.9 H Glucose 117 H POC Glucose 129 H Lactic Acid Calcium 7.3 L Total Bilirubin 4.9 H Direct Bilirubin AST 369 H ALT 258 H Alkaline Phosphatase 291 H Lactate Dehydrogenase Total Creatine Kinase Total Protein 4.3 L Albumin 1.7 L LDL Cholesterol Direct Crossmatch 08/23/16 08/23/16 08/23/16 21:50 21:50 22:16 WBC RBC Hgb Hct Plt Count Lymph % (Auto) [place] # Seg Neutrophils % Seg Neutrophils # PT INR POC ABG pH POC ABG pCO2 POC ABG pO2 Potassium Chloride Carbon Dioxide BUN Creatinine Glucose POC Glucose 134 H Lactic Acid 4.6 H* Calcium Total Bilirubin Direct Bilirubin AST ALT Alkaline Phosphatase Lactate Dehydrogenase Total Creatine Kinase 1410 H Total Protein Albumin LDL Cholesterol Direct Crossmatch 08/24/16 08/24/16 08/24/16 00:13 01:47 02:37 WBC RBC Hgb Hct Plt Count Lymph % (Auto) [place] # Seg Neutrophils % Seg Neutrophils # PT INR POC ABG pH POC ABG pCO2 POC ABG pO2 Potassium Chloride Carbon Dioxide BUN Creatinine Glucose POC Glucose 120 H 116 H 107 H Lactic Acid Calcium Total Bilirubin Direct Bilirubin AST ALT Alkaline Phosphatase Lactate Dehydrogenase Total Creatine Kinase Total Protein Albumin LDL Cholesterol Direct Crossmatch 08/24/16 08/24/16 08/24/16 03:25 04:10 05:00 WBC 12.7 H RBC 2.18 L Hgb 6.7 L D Hct 20.4 L D Plt Count 102 L Lymph % (Auto) [place] # Seg Neutrophils % Seg Neutrophils # PT INR POC ABG pH POC ABG pCO2 POC ABG pO2 Potassium Chloride Carbon Dioxide BUN Creatinine Glucose POC Glucose 108 H 114 H Lactic Acid Calcium Total Bilirubin Direct Bilirubin AST ALT Alkaline Phosphatase Lactate Dehydrogenase Total Creatine Kinase Total Protein Albumin LDL Cholesterol Direct Crossmatch 08/24/16 08/24/16 08/24/16 05:00 05:00 05:00 WBC RBC Hgb Hct Plt Count Lymph % (Auto) [place] # Seg Neutrophils % Seg Neutrophils # PT 22.1 H INR 1.93 H POC ABG pH POC ABG pCO2 POC ABG pO2 Potassium Chloride 108.0 H Carbon Dioxide 19 L BUN 21 H Creatinine 2.7 H Glucose POC Glucose Lactic Acid 3.0 H* Calcium 6.8 L Total Bilirubin 4.6 H Direct Bilirubin AST 303 H ALT 204 H Alkaline Phosphatase 280 H Lactate Dehydrogenase Total Creatine Kinase 1295 H Total Protein 4.1 L Albumin 1.6 L LDL Cholesterol Direct Crossmatch
[2016-08-24 14:19] LABS: ISTAT Base Excess -2; ISTAT HCO3 21.9; ISTAT PCO2 29.6 (35-45); ISTAT PH 7.479 (7.35-7.45); ISTAT PO2 62 (80-105); ISTAT SO2 93; ISTAT TCO2 23
[2016-08-24] MEDS: D5W 1,000 ML IV SCH (14:24)
[2016-08-24] MEDS: FEOSOL PO SCH (18:28)
[2016-08-24] MEDS: MORPHINE IV PRN ×2 (19:08→23:10)
[2016-08-24] MEDS: NORCO 5/325 PO PRN (19:13)
[2016-08-25] MEDS: ZOSYN/NS 2.25 GM/50ML 50 ML IV SCH ×3 (00:56→12:32)
[2016-08-25] MEDS: D5W 1,000 ML IV SCH ×2 (03:49→17:28)
[2016-08-25] MEDS: MORPHINE IV PRN (05:11)
[2016-08-25 06:28] LABS: Hematocrit 29.1 % (30.3-42.9); Hemoglobin 9.7 gm/dl (10.1-14.3); Mean Corpuscular HGB Conc 33 % (30-34); Mean Corpuscular Hemoglobin 30 pg (28-32); Mean Corpuscular Volume 90 fl (79-97); Platelet Count 112 K/mm3 (140-440); Red Blood Count 3.24 M/mm3 (3.65-5.03); Red Cell Distribution Width 16.1 % (13.2-15.2); White Blood Count 19.1 K/mm3 (4.5-11.0)
[2016-08-25 06:38] LABS: INR 1.7 (0.87-1.13)
[2016-08-25 06:39] LABS: Partial Thromboplastin Time 42.3 Sec. (24.2-36.6)
[2016-08-25 06:44] LABS: Albumin 1.7 g/dL (3.9-5); Albumin/Globulin Ratio 0.6 %; BUN/Creatinine Ratio 10.68; Bilirubin,Total 5.7 mg/dL (0.1-1.2); Calcium 6.7 mg/dL (8.4-10.2); Chloride 102.6 mmol/L (98-107); Potassium 4.1 mmol/L (3.6-5.0); Total Protein 4.4 g/dL (6.3-8.2)
[2016-08-25] MEDS ORDERED: MORPHINE IV PRN (10:38)
--- NOTE | 2016-08-25 10:39 | Progress Note ---
Assessment and Plan HELLP syndrome, suspected, status post Hypotension, resolved . Remains more hypertensive Hypoglycemia: IV dextrose Abnormal liver enzymes. Liver profile including INR trending back to normal Renal failure. Improving Leukocytosis.Still active , no fever. Peripheral smear ordered, n/a Hyperkalemia: Improving Metabolic encephalopathy? Recommendations, Continue gentle fluids I/O Monitor BP. Discussed with OB-Wind Turbine Service Technician and if deemed consistently above baseline for puerperal, can consider hydralazine or Labetalol 100 mg BID PO Peripheral smear Discussed with family. Critical care time was 40 minutes in patient evaluation [id number] coordination of care. Subjective Date of service: 08/25/16 Principal diagnosis: HELLP syndrome, status post Interval history: Feels weak, no headaches or chest pain. Breathing appears to be fine. Sleepy Objective Vital Signs - 12hr 08/24/16 08/24/16 08/24/16 23:00 23:10 23:20 Temperature Pulse Rate 72 70 Respiratory 13 12 11 L Rate Blood Pressure 169/89 149/92 O2 Sat by Pulse 95 96 96 Oximetry 08/24/16 08/24/16 08/25/16 23:28 23:40 00:00 Temperature Pulse Rate 73 74 Respiratory 14 12 12 Rate Blood Pressure 149/92 131/82 O2 Sat by Pulse 96 94 Oximetry 08/25/16 08/25/16 08/25/16 00:31 01:00 01:04 Temperature Pulse Rate 74 74 74 Respiratory 12 10 L 10 L Rate Blood Pressure 155/86 155/89 155/86 O2 Sat by Pulse 96 93 96 Oximetry 08/25/16 08/25/16 08/25/16 01:08 02:00 02:15 Temperature 97.5 F L Pulse Rate 76 Respiratory 11 L 12 Rate Blood Pressure 141/90 O2 Sat by Pulse 95 96 Oximetry 08/25/16 08/25/16 08/25/16 02:38 02:48 03:00 Temperature Pulse Rate 76 75 78 Respiratory 11 L 10 L 11 L Rate Blood Pressure 149/89 149/89 161/94 O2 Sat by Pulse 95 96 94 Oximetry 08/25/16 08/25/16 08/25/16 04:00 04:15 04:24 Temperature 97.6 F Pulse Rate 76 Respiratory 11 L Rate Blood Pressure 160/84 O2 Sat by Pulse 91 96 Oximetry 0108/25/16 08/25/16 05:00 05:02 05:11 Temperature Pulse Rate 77 72 Respiratory 12 9 L 14 Rate Blood Pressure 167/87 167/87 O2 Sat by Pulse 96 96 Oximetry 08/25/16 08/25/16 08/25/16 05:56 06:00 06:18 Temperature Pulse Rate 78 76 77 Respiratory 10 L 10 L 10 L Rate Blood Pressure 151/74 142/88 142/88 O2 Sat by Pulse 96 94 95 Oximetry 08/25/16 08/25/16 08/25/16 06:22 07:00 08:00 Temperature 97.7 F Pulse Rate 77 74 78 Respiratory 10 L 10 L 10 L Rate Blood Pressure 142/88 151/88 147/92 O2 Sat by Pulse 95 95 96 Oximetry Constitutional: no acute distress, asleep Eyes: non-icteric ENT: oropharynx moist Neck: supple Ascultation: Bilateral: clear Cardiovascular: regular rate and rhythm Gastrointestinal: normoactive bowel sounds, non-distended Integumentary: normal Extremities: no cyanosis, no cyanosis, no cyanosis Neurologic: non-focal exam, pupils equal and round, CN II-XII normal, motor strength normal and CBC and BMP: 08/25/16 05:45 08/25/16 05:45 ABG, PT/INR, D-dimer: ABG POC ABG pH 7.479 (7.35-7.45) H 08/24/16 14:12 POC ABG pCO2 29.6 (35-45) L 08/24/16 14:12 POC ABG pO2 62 (80-105) L 08/24/16 14:12 POC ABG HCO3 21.9 08/24/16 14:12 POC ABG Total CO2 23 08/24/16 14:12 POC ABG O2 Sat 93 08/24/16 14:12 PT/INR, D-dimer PT 20.0 Sec. (12.2-14.9) H 08/25/16 05:45 INR 1.70 (0.87-1.13) H 08/25/16 05:45 Abnormal lab findings: Abnormal Labs 08/22/16 08/22/16 08/22/16 16:00 16:00 17:38 WBC RBC 3.64 L Hgb Hct RDW Plt Count 137 L Lymph % (Auto) 12.3 L [place] # Seg Neutrophils % 81.9 H Seg Neutrophils # 8.3 H PT INR APTT POC ABG pH 7.117 L POC ABG pCO2 49.2 H POC ABG pO2 20 L Sodium Potassium Chloride Carbon Dioxide BUN Creatinine Glucose POC Glucose Lactic Acid Calcium Magnesium Total Bilirubin Direct Bilirubin AST ALT Alkaline Phosphatase [place]mon[place] Lactate Dehydrogenase Total Creatine Kinase Total Protein Albumin LDL Cholesterol Direct Crossmatch See Detail 08/22/16 08/22/16 08/23/16 17:43 18:48 05:19 WBC 13.2 H 17.0 H RBC 3.62 L 3.16 L Hgb 9.9 L Hct RDW Plt Count 115 L 125 L Lymph % (Auto) 8.8 L [place] # 1.1 H Seg Neutrophils % 87.0 H 77.2 H Seg Neutrophils # 11.5 H 13.1 H PT INR APTT POC ABG pH 7.078 L POC ABG pCO2 POC ABG pO2 25 L Sodium Potassium Chloride Carbon Dioxide BUN Creatinine Glucose POC Glucose Lactic Acid Calcium Magnesium Total Bilirubin Direct Bilirubin AST ALT Alkaline Phosphatase Ammonia Lactate Dehydrogenase Total Creatine Kinase Total Protein Albumin LDL Cholesterol Direct Crossmatch 08/23/16 08/23/16 08/23/16 07:50 07:50 08:19 WBC RBC Hgb 9.7 L Hct 30.0 L RDW Plt Count Lymph % (Auto) [place] # Seg Neutrophils % Seg Neutrophils # PT 23.7 H INR 2.11 H APTT POC ABG pH POC ABG pCO2 POC ABG pO2 Sodium Potassium 5.9 H Chloride Carbon Dioxide 12 L BUN 18 H Creatinine 3.1 H Glucose 39 L* POC Glucose Lactic Acid Calcium Magnesium Total Bilirubin 4.3 H Direct Bilirubin 3.9 H AST 676 H ALT 470 H Alkaline Phosphatase 394 H Ammonia Lactate Dehydrogenase Total Creatine Kinase Total Protein 4.3 L Albumin 1.6 L LDL Cholesterol Direct 38 L Crossmatch 08/23/16 08/23/16 08/23/16 08:39 09:00 09:25 WBC RBC Hgb Hct RDW Plt Count Lymph % (Auto) [place] # Seg Neutrophils % Seg Neutrophils # PT INR APTT POC ABG pH POC ABG pCO2 POC ABG pO2 Sodium Potassium Chloride Carbon Dioxide BUN Creatinine Glucose POC Glucose 52 L 178 H Lactic Acid 10.0 H* Calcium Magnesium Total Bilirubin Direct Bilirubin AST ALT Alkaline Phosphatase Ammonia Lactate Dehydrogenase Total Creatine Kinase Total Protein Albumin LDL Cholesterol Direct Crossmatch 08/23/16 08/23/16 08/23/16 11:05 12:02 12:26 WBC RBC Hgb Hct RDW Plt Count Lymph % (Auto) [place] # Seg Neutrophils % Seg Neutrophils # PT INR APTT POC ABG pH POC ABG pCO2 POC ABG pO2 Sodium Potassium 5.5 H Chloride Carbon Dioxide 13 L BUN 19 H Creatinine 3.1 H Glucose 124 H POC Glucose 134 H 130 H Lactic Acid Calcium 8.3 L Magnesium Total Bilirubin 4.4 H Direct Bilirubin AST 521 H ALT 377 H Alkaline Phosphatase 345 H Ammonia Lactate Dehydrogenase Total Creatine Kinase Total Protein 4.6 L Albumin 1.9 L LDL Cholesterol Direct Crossmatch 08/23/16 08/23/16 08/23/16 12:49 15:30 15:30 WBC RBC Hgb Hct RDW Plt Count Lymph % (Auto) [place] # Seg Neutrophils % Seg Neutrophils # PT 21.4 H INR 1.86 H APTT POC ABG pH POC ABG pCO2 POC ABG pO2 Sodium Potassium 5.1 H Chloride Carbon Dioxide BUN Creatinine Glucose POC Glucose 145 H Lactic Acid Calcium Magnesium Total Bilirubin Direct Bilirubin AST ALT Alkaline Phosphatase Ammonia Lactate Dehydrogenase 511 H Total Creatine Kinase Total Protein Albumin LDL Cholesterol Direct Crossmatch 08/23/16 08/23/16 08/23/16 15:30 15:30 15:56 WBC RBC Hgb Hct RDW Plt Count Lymph % (Auto) [place] # Seg Neutrophils % Seg Neutrophils # PT INR APTT POC ABG pH POC ABG pCO2 POC ABG pO2 Sodium Potassium Chloride Carbon Dioxide BUN Creatinine Glucose POC Glucose 138 H Lactic Acid 7.1 H* Calcium Magnesium Total Bilirubin Direct Bilirubin AST ALT Alkaline Phosphatase Ammonia Lactate Dehydrogenase Total Creatine Kinase 1275 H Total Protein Albumin LDL Cholesterol Direct Crossmatch 08/23/16 08/23/16 08/23/16 16:19 17:30 18:02 WBC RBC Hgb Hct RDW Plt Count Lymph % (Auto) [place] # Seg Neutrophils % Seg Neutrophils # PT INR APTT POC ABG pH 7.288 L POC ABG pCO2 28.5 L POC ABG pO2 66 L Sodium Potassium Chloride Carbon Dioxide BUN Creatinine Glucose POC Glucose 109 H 123 H Lactic Acid Calcium Magnesium Total Bilirubin Direct Bilirubin AST ALT Alkaline Phosphatase Ammonia Lactate Dehydrogenase Total Creatine Kinase Total Protein Albumin LDL Cholesterol Direct Crossmatch 08/23/16 08/23/16 08/23/16 20:05 20:23 21:50 WBC RBC Hgb Hct RDW Plt Count Lymph % (Auto) [place] # Seg Neutrophils % Seg Neutrophils # PT 22.5 H INR 1.98 H APTT POC ABG pH POC ABG pCO2 POC ABG pO2 Sodium Potassium Chloride Carbon Dioxide 15 L BUN 19 H Creatinine 2.9 H Glucose 117 H POC Glucose 129 H Lactic Acid Calcium 7.3 L Magnesium Total Bilirubin 4.9 H Direct Bilirubin AST 369 H ALT 258 H Alkaline Phosphatase 291 H Ammonia Lactate Dehydrogenase Total Creatine Kinase Total Protein 4.3 L Albumin 1.7 L LDL Cholesterol Direct Crossmatch 08/23/16 08/23/16 08/23/16 21:50 21:50 22:16 WBC RBC Hgb Hct RDW Plt Count Lymph % (Auto) [place] # Seg Neutrophils % Seg Neutrophils # PT INR APTT POC ABG pH POC ABG pCO2 POC ABG pO2 Sodium Potassium Chloride Carbon Dioxide BUN Creatinine Glucose POC Glucose 134 H Lactic Acid 4.6 H* Calcium Magnesium Total Bilirubin Direct Bilirubin AST ALT Alkaline Phosphatase Ammonia Lactate Dehydrogenase Total Creatine Kinase 1410 H Total Protein Albumin LDL Cholesterol Direct Crossmatch 08/24/16 08/24/16 08/24/16 00:13 01:47 02:37 WBC RBC Hgb Hct RDW Plt Count Lymph % (Auto) [place] # Seg Neutrophils % Seg Neutrophils # PT INR APTT POC ABG pH POC ABG pCO2 POC ABG pO2 Sodium Potassium Chloride Carbon Dioxide BUN Creatinine Glucose POC Glucose 120 H 116 H 107 H Lactic Acid Calcium Magnesium Total Bilirubin Direct Bilirubin AST ALT Alkaline Phosphatase Ammonia Lactate Dehydrogenase Total Creatine Kinase Total Protein Albumin LDL Cholesterol Direct Crossmatch 08/24/16 08/24/16 08/24/16 03:25 04:10 05:00 WBC 12.7 H RBC 2.18 L Hgb 6.7 L D Hct 20.4 L D RDW Plt Count 102 L Lymph % (Auto) [place] # Seg Neutrophils % Seg Neutrophils # PT INR APTT POC ABG pH POC ABG pCO2 POC ABG pO2 Sodium Potassium Chloride Carbon Dioxide BUN Creatinine Glucose POC Glucose 108 H 114 H Lactic Acid Calcium Magnesium Total Bilirubin Direct Bilirubin AST ALT Alkaline Phosphatase Ammonia Lactate Dehydrogenase Total Creatine Kinase Total Protein Albumin LDL Cholesterol Direct Crossmatch 08/24/16 08/24/16 08/24/16 05:00 05:00 05:00 WBC RBC Hgb Hct RDW Plt Count Lymph % (Auto) [place] # Seg Neutrophils % Seg Neutrophils # PT 22.1 H INR 1.93 H APTT POC ABG pH POC ABG pCO2 POC ABG pO2 Sodium Potassium Chloride 108.0 H Carbon Dioxide 19 L BUN 21 H Creatinine 2.7 H Glucose POC Glucose Lactic Acid 3.0 H* Calcium 6.8 L Magnesium Total Bilirubin 4.6 H Direct Bilirubin AST 303 H ALT 204 H Alkaline Phosphatase 280 H Ammonia Lactate Dehydrogenase Total Creatine Kinase 1295 H Total Protein 4.1 L Albumin 1.6 L LDL Cholesterol Direct Crossmatch 08/24/16 08/24/16 08/24/16 14:12 14:30 17:45 WBC RBC Hgb Hct RDW Plt Count Lymph % (Auto) [place] # Seg Neutrophils % Seg Neutrophils # PT INR APTT POC ABG pH 7.479 H POC ABG pCO2 29.6 L POC ABG pO2 62 L Sodium Potassium Chloride Carbon Dioxide BUN Creatinine Glucose POC Glucose Lactic Acid Calcium Magnesium 4.7 H Total Bilirubin Direct Bilirubin AST ALT Alkaline Phosphatase Ammonia 61.0 H Lactate Dehydrogenase Total Creatine Kinase Total Protein Albumin LDL Cholesterol Direct Crossmatch 08/24/16 08/25/16 08/25/16 23:30 00:55 02:14 WBC RBC Hgb Hct RDW Plt Count Lymph % (Auto) [place] # Seg Neutrophils % Seg Neutrophils # PT INR APTT POC ABG pH POC ABG pCO2 POC ABG pO2 Sodium Potassium Chloride Carbon Dioxide BUN Creatinine Glucose POC Glucose 108 H 106 H Lactic Acid Calcium Magnesium 6.7 H Total Bilirubin Direct Bilirubin AST ALT Alkaline Phosphatase Ammonia Lactate Dehydrogenase Total Creatine Kinase Total Protein Albumin LDL Cholesterol Direct Crossmatch 08/25/16 08/25/16 08/25/16 05:45 05:45 05:45 WBC 19.1 H RBC 3.24 L Hgb 9.7 L D Hct 29.1 L D RDW 16.1 H Plt Count 112 L Lymph % (Auto) [place] # Seg Neutrophils % Seg Neutrophils # PT 20.0 H INR 1.70 H APTT 42.3 H POC ABG pH POC ABG pCO2 POC ABG pO2 Sodium Potassium Chloride Carbon Dioxide BUN Creatinine Glucose POC Glucose Lactic Acid Calcium Magnesium 7.2 H Total Bilirubin Direct Bilirubin AST ALT Alkaline Phosphatase Ammonia Lactate Dehydrogenase Total Creatine Kinase Total Protein Albumin LDL Cholesterol Direct Crossmatch 08/25/16 05:45 WBC RBC Hgb Hct RDW Plt Count Lymph % (Auto) [place] # Seg Neutrophils % Seg Neutrophils # PT INR APTT POC ABG pH POC ABG pCO2 POC ABG pO2 Sodium 136 L Potassium Chloride Carbon Dioxide BUN 31 H Creatinine 2.9 H Glucose POC Glucose Lactic Acid Calcium 6.7 L Magnesium Total Bilirubin 5.7 H Direct Bilirubin AST 194 H ALT 119 H Alkaline Phosphatase 299 H Ammonia Lactate Dehydrogenase Total Creatine Kinase Total Protein 4.4 L Albumin 1.7 L LDL Cholesterol Direct Crossmatch
--- NOTE | 2016-08-25 10:43 | Progress Note ---
Assessment and Plan POD 3 s/p primary C/s. HELLP syndrome. Stop Magnesium sulfate, Decrease pain meds, start clear liquid diet. obtain urine culture. Subjective - Subjective Date of service: 08/25/16 Principal diagnosis: HELLP syndrome, status post Interval history: Pt currently in ICU. pt noted to have elevated liver enzymes ( Improving), anemia improved s/p transfusion of 2 units of PRBC's. Pt was on magnesium sulfate which was recently stopped because of elevated magnesium levels. Patient reports: appetite poor, nauseated [place]: transported Objective - Vital Signs Latest vital signs: Vital Signs Temp Pulse Resp BP Pulse Ox 08/25/16 08:00 97.7 F 78 10 L 147/92 96 08/25/16 07:00 74 10 L 151/88 95 08/25/16 06:22 77 10 L 142/88 95 08/25/16 06:18 77 10 L 142/88 95 08/25/16 06:00 76 10 L 142/88 94 08/25/16 05:56 78 10 L 151/74 96 08/25/16 05:11 14 08/25/16 05:02 72 9 L 167/87 96 08/25/16 05:00 77 12 167/87 96 08/25/16 04:24 97.6 F 08/25/16 04:15 96 08/25/16 04:00 76 11 L 160/84 91 08/25/16 03:00 78 11 L 161/94 94 08/25/16 02:48 75 10 L 149/89 96 08/25/16 02:38 76 11 L 149/89 95 08/25/16 02:15 12 96 08/25/16 02:00 76 11 L 141/90 95 08/25/16 01:08 97.5 F L 08/25/16 01:04 74 10 L 155/86 96 08/25/16 01:00 74 10 L 155/89 93 08/25/16 00:31 74 12 155/86 96 08/25/16 00:00 74 12 131/82 94 08/24/16 23:40 12 08/24/16 23:28 73 14 149/92 96 08/24/16 23:20 70 11 L 149/92 96 08/24/16 23:10 12 96 08/24/16 23:00 72 13 169/89 95 08/24/16 22:00 71 12 163/88 95 08/24/16 21:50 70 12 138/93 96 08/24/16 21:36 68 11 L 131/84 96 08/24/16 21:30 12 96 08/24/16 21:20 69 12 145/89 95 08/24/16 21:15 12 96 08/24/16 21:08 69 13 149/90 95 08/24/16 21:00 72 17 138/93 96 08/24/16 20:14 68 12 148/90 96 08/24/16 20:13 14 08/24/16 20:00 68 14 148/90 97 08/24/16 19:38 14 08/24/16 19:20 66 15 144/73 95 08/24/16 19:15 97.6 F 14 148/90 97 08/24/16 19:13 18 08/24/16 19:08 16 08/24/16 19:00 70 17 149/83 93 08/24/16 18:10 71 16 152/87 95 08/24/16 18:00 68 15 152/87 96 08/24/16 17:00 68 15 146/87 95 08/24/16 16:33 97.6 F 08/24/16 16:17 69 16 152/83 97 08/24/16 16:00 68 15 146/86 97 08/24/16 15:08 73 13 129/84 96 08/24/16 15:00 71 15 151/87 96 08/24/16 14:00 69 16 150/89 95 08/24/16 13:55 96 08/24/16 13:38 71 18 147/86 95 08/24/16 13:00 69 12 138/87 97 08/24/16 12:20 97.7 F 68 15 145/85 97 08/24/16 12:00 97.6 F 70 17 141/82 98 08/24/16 11:09 97.7 F 76 16 99 08/24/16 11:08 75 18 129/84 97 08/24/16 11:06 70 18 129/84 99 08/24/16 11:00 77 13 151/90 Intake and Output 08/24/16 08/25/16 08/25/16 22:59 06:59 14:59 Intake Total 1320 625 Output Total 200 175 Balance 1120 450 Intake: IV 1175 625 D5w 1,000 ml @ 75 mls/hr 375 450 IV DIRECT [facility] Rx#: [id number] Zosyn/Ns 2.25 gm/50Ml 50 50 ml @ 100 mls/hr IV Q8HR [facility] Rx#:[id number] Sodium Bicarbonate 150 0 Meq In D5w 1,000 ml @ 75 mls/hr IV DIRECT [facility] Rx#:[id number] NaCl 0.9% 1000 ml 1,000 0 ml @ 999 mls/hr IV ONCE ONE Rx#:[id number] NaCl 0.9% 500 ml 500 ml 0 As .ROUTE .STK-MED ONE Rx #:[id number] Magnesium Sulfate 40Gm/ 250 125 1000ML 1,000 ml @ 1 GM/HR 25 mls/hr IV DIRECT [facility] Rx#:[id number] Magnesium Sulfate 4Gm/ 0 100Ml 100 ml @ 300 mls/hr IV ONCE ONE Rx#: [id number] Zosyn/Ns 2.25 gm/50Ml 50 50 ml @ 100 mls/hr IV Q6HR [facility] Rx#:[id number] NaCl 0.9% 500 ml 500 ml @ 500 As Directed IV ONCE ONE Rx#:[id number] Oral 145 0 Output: Urine 200 175 Indwelling Catheter 200 175 Other: Total, Intake Amount 0 0 Total, Output Amount 65 35 Voiding Method Indwelling Catheter Indwelling Catheter Indwelling Catheter - Exam Breasts: Present: deferred Cardiovascular: Present: Regular rate, Normal S1, Normal S2 Abdomen: Present: distention (mild, staple in place small amount of oozing), normal bowel sounds Vulva: both: normal Uterus: Present: normal, firm (moderate lochia rubra), other (urine frankly bloody. ) Extremities: Present: edema Incision: Present: intact - Labs Labs: Abnormal lab results 08/22/16 08/24/16 08/24/16 Range/Units 16:00 14:12 14:30 WBC (4.5-11.0) K/mm3 RBC (3.65-5.03) M/mm3 Hgb (10.1-14.3) gm/dl Hct (30.3-42.9) % RDW (13.2-15.2) % Plt Count (140-440) K/mm3 PT (12.2-14.9) Sec. INR (0.87-1.13) APTT (24.2-36.6) Sec. POC ABG pH 7.479 H (7.35-7.45) POC ABG pCO2 29.6 L (35-45) POC ABG pO2 62 L (80-105) Sodium (137-145) mmol/L BUN (7-17) mg/dL Creatinine (0.7-1.2) mg/dL POC Glucose (70-105) Calcium (8.4-10.2) mg/dL Magnesium (1.7-2.3) mg/dL Total Bilirubin (0.1-1.2) mg/dL AST (5-40) units/L ALT (7-56) units/L Alkaline Phosphatase (35-129) units/L Ammonia 61.0 H (25-60) umol/L Total Protein (6.3-8.2) g/dL Albumin (3.9-5) g/dL Crossmatch See Detail 08/24/16 08/24/16 08/25/16 Range/Units 17:45 23:30 00:55 WBC (4.5-11.0) K/mm3 RBC (3.65-5.03) M/mm3 Hgb (10.1-14.3) gm/dl Hct (30.3-42.9) % RDW (13.2-15.2) % Plt Count (140-440) K/mm3 PT (12.2-14.9) Sec. INR (0.87-1.13) APTT (24.2-36.6) Sec. POC ABG pH (7.35-7.45) POC ABG pCO2 (35-45) POC ABG pO2 (80-105) Sodium (137-145) mmol/L BUN (7-17) mg/dL Creatinine (0.7-1.2) mg/dL POC Glucose 108 H (70-105) Calcium (8.4-10.2) mg/dL Magnesium 4.7 H 6.7 H (1.7-2.3) mg/dL Total Bilirubin (0.1-1.2) mg/dL AST (5-40) units/L ALT (7-56) units/L Alkaline Phosphatase (35-129) units/L Ammonia (25-60) umol/L Total Protein (6.3-8.2) g/dL Albumin (3.9-5) g/dL Crossmatch 08/25/16 08/25/16 08/25/16 Range/Units 02:14 05:45 05:45 WBC 19.1 H (4.5-11.0) K/mm3 RBC 3.24 L (3.65-5.03) M/mm3 Hgb 9.7 L D (10.1-14.3) gm/dl Hct 29.1 L D (30.3-42.9) % RDW 16.1 H (13.2-15.2) % Plt Count 112 L (140-440) K/mm3 PT (12.2-14.9) Sec. INR (0.87-1.13) APTT (24.2-36.6) Sec. POC ABG pH (7.35-7.45) POC ABG pCO2 (35-45) POC ABG pO2 (80-105) Sodium (137-145) mmol/L BUN (7-17) mg/dL Creatinine (0.7-1.2) mg/dL POC Glucose 106 H (70-105) Calcium (8.4-10.2) mg/dL Magnesium 7.2 H (1.7-2.3) mg/dL Total Bilirubin (0.1-1.2) mg/dL AST (5-40) units/L ALT (7-56) units/L Alkaline Phosphatase (35-129) units/L Ammonia (25-60) umol/L Total Protein (6.3-8.2) g/dL Albumin (3.9-5) g/dL Crossmatch 08/25/16 08/25/16 Range/Units 05:45 05:45 WBC (4.5-11.0) K/mm3 RBC (3.65-5.03) M/mm3 Hgb (10.1-14.3) gm/dl Hct (30.3-42.9) % RDW (13.2-15.2) % Plt Count (140-440) K/mm3 PT 20.0 H (12.2-14.9) Sec. INR 1.70 H (0.87-1.13) APTT 42.3 H (24.2-36.6) Sec. POC ABG pH (7.35-7.45) POC ABG pCO2 (35-45) POC ABG pO2 (80-105) Sodium 136 L (137-145) mmol/L BUN 31 H (7-17) mg/dL Creatinine 2.9 H (0.7-1.2) mg/dL POC Glucose (70-105) Calcium 6.7 L (8.4-10.2) mg/dL Magnesium (1.7-2.3) mg/dL Total Bilirubin 5.7 H (0.1-1.2) mg/dL AST 194 H (5-40) units/L ALT 119 H (7-56) units/L Alkaline Phosphatase 299 H (35-129) units/L Ammonia (25-60) umol/L Total Protein 4.4 L (6.3-8.2) g/dL Albumin 1.7 L (3.9-5) g/dL Crossmatch
--- NOTE | 2016-08-25 10:46 | Progress Note ---
Subjective Date of service: 08/25/16 Principal diagnosis: HELLP syndrome, status post Interval history: 3rd POD after Post operative period is complicated by HEELP syndrome. Patient is lethargic. It is probably associated with high Mg level and pain meds. The labs got better. Vital signs are stable. No evidence of anesthesia complications Objective - Constitutional Vitals: Vital Signs - 12hr 08/24/16 08/24/16 08/24/16 23:00 23:10 23:20 Temperature Pulse Rate 72 70 Respiratory 13 12 11 L Rate Blood Pressure 169/89 149/92 O2 Sat by Pulse 95 96 96 Oximetry 08/24/16 08/24/16 08/25/16 23:28 23:40 00:00 Temperature Pulse Rate 73 74 Respiratory 14 12 12 Rate Blood Pressure 149/92 131/82 O2 Sat by Pulse 96 94 Oximetry 08/25/16 08/25/16 08/25/16 00:31 01:00 01:04 Temperature Pulse Rate 74 74 74 Respiratory 12 10 L 10 L Rate Blood Pressure 155/86 155/89 155/86 O2 Sat by Pulse 96 93 96 Oximetry 08/25/16 08/25/16 08/25/16 01:08 02:00 02:15 Temperature 97.5 F L Pulse Rate 76 Respiratory 11 L 12 Rate Blood Pressure 141/90 O2 Sat by Pulse 95 96 Oximetry 08/25/16 08/25/16 08/25/16 02:38 02:48 03:00 Temperature Pulse Rate 76 75 78 Respiratory 11 L 10 L 11 L Rate Blood Pressure 149/89 149/89 161/94 O2 Sat by Pulse 95 96 94 Oximetry 08/25/16 08/25/16 08/25/16 04:00 04:15 04:24 Temperature 97.6 F Pulse Rate 76 Respiratory 11 L Rate Blood Pressure 160/84 O2 Sat by Pulse 91 96 Oximetry 08/25/16 08/25/16 08/25/16 05:00 05:02 05:11 Temperature Pulse Rate 77 72 Respiratory 12 9 L 14 Rate Blood Pressure 167/87 167/87 O2 Sat by Pulse 96 96 Oximetry 08/25/16 08/25/16 08/25/16 05:56 06:00 06:18 Temperature Pulse Rate 78 76 77 Respiratory 10 L 10 L 10 L Rate Blood Pressure 151/74 142/88 142/88 O2 Sat by Pulse 96 94 95 Oximetry 08/25/16 08/25/16 08/25/16 06:22 07:00 08:00 Temperature 97.7 F Pulse Rate 77 74 78 Respiratory 10 L 10 L 10 L Rate Blood Pressure 142/88 151/88 147/92 O2 Sat by Pulse 95 95 96 Oximetry - Labs CBC & Chem 7: 08/25/16 05:45 08/25/16 05:45 Labs: Abnormal lab results 08/22/16 08/24/16 08/24/16 Range/Units 16:00 14:12 14:30 WBC (4.5-11.0) K/mm3 RBC (3.65-5.03) M/mm3 Hgb (10.1-14.3) gm/dl Hct (30.3-42.9) % RDW (13.2-15.2) % Plt Count (140-440) K/mm3 PT (12.2-14.9) Sec. INR (0.87-1.13) APTT (24.2-36.6) Sec. POC ABG pH 7.479 H (7.35-7.45) POC ABG pCO2 29.6 L (35-45) POC ABG pO2 62 L (80-105) Sodium (137-145) mmol/L BUN (7-17) mg/dL Creatinine (0.7-1.2) mg/dL POC Glucose (70-105) Calcium (8.4-10.2) mg/dL Magnesium (1.7-2.3) mg/dL Total Bilirubin (0.1-1.2) mg/dL AST (5-40) units/L ALT (7-56) units/L Alkaline Phosphatase (35-129) units/L Ammonia 61.0 H (25-60) umol/L Total Protein (6.3-8.2) g/dL Albumin (3.9-5) g/dL Crossmatch See Detail 08/24/16 08/24/16 08/25/16 Range/Units 17:45 23:30 00:55 WBC (4.5-11.0) K/mm3 RBC (3.65-5.03) M/mm3 Hgb (10.1-14.3) gm/dl Hct (30.3-42.9) % RDW (13.2-15.2) % Plt Count (140-440) K/mm3 PT (12.2-14.9) Sec. INR (0.87-1.13) APTT (24.2-36.6) Sec. POC ABG pH (7.35-7.45) POC ABG pCO2 (35-45) POC ABG pO2 (80-105) Sodium (137-145) mmol/L BUN (7-17) mg/dL Creatinine (0.7-1.2) mg/dL POC Glucose 108 H (70-105) Calcium (8.4-10.2) mg/dL Magnesium 4.7 H 6.7 H (1.7-2.3) mg/dL Total Bilirubin (0.1-1.2) mg/dL AST (5-40) units/L ALT (7-56) units/L Alkaline Phosphatase (35-129) units/L Ammonia (25-60) umol/L Total Protein (6.3-8.2) g/dL Albumin (3.9-5) g/dL Crossmatch 08/25/16 08/25/16 08/25/16 Range/Units 02:14 05:45 05:45 WBC 19.1 H (4.5-11.0) K/mm3 RBC 3.24 L (3.65-5.03) M/mm3 Hgb 9.7 L D (10.1-14.3) gm/dl Hct 29.1 L D (30.3-42.9) % RDW 16.1 H (13.2-15.2) % Plt Count 112 L (140-440) K/mm3 PT (12.2-14.9) Sec. INR (0.87-1.13) APTT (24.2-36.6) Sec. POC ABG pH (7.35-7.45) POC ABG pCO2 (35-45) POC ABG pO2 (80-105) Sodium (137-145) mmol/L BUN (7-17) mg/dL Creatinine (0.7-1.2) mg/dL POC Glucose 106 H (70-105) Calcium (8.4-10.2) mg/dL Magnesium 7.2 H (1.7-2.3) mg/dL Total Bilirubin (0.1-1.2) mg/dL AST (5-40) units/L ALT (7-56) units/L Alkaline Phosphatase (35-129) units/L Ammonia (25-60) umol/L Total Protein (6.3-8.2) g/dL Albumin (3.9-5) g/dL Crossmatch 08/25/16 08/25/16 Range/Units 05:45 05:45 WBC (4.5-11.0) K/mm3 RBC (3.65-5.03) M/mm3 Hgb (10.1-14.3) gm/dl Hct (30.3-42.9) % RDW (13.2-15.2) % Plt Count (140-440) K/mm3 PT 20.0 H (12.2-14.9) Sec. INR 1.70 H (0.87-1.13) APTT 42.3 H (24.2-36.6) Sec. POC ABG pH (7.35-7.45) POC ABG pCO2 (35-45) POC ABG pO2 (80-105) Sodium 136 L (137-145) mmol/L BUN 31 H (7-17) mg/dL Creatinine 2.9 H (0.7-1.2) mg/dL POC Glucose (70-105) Calcium 6.7 L (8.4-10.2) mg/dL Magnesium (1.7-2.3) mg/dL Total Bilirubin 5.7 H (0.1-1.2) mg/dL AST 194 H (5-40) units/L ALT 119 H (7-56) units/L Alkaline Phosphatase 299 H (35-129) units/L Ammonia (25-60) umol/L Total Protein 4.4 L (6.3-8.2) g/dL Albumin 1.7 L (3.9-5) g/dL Crossmatch
[2016-08-25] MEDS: FEOSOL PO SCH (11:15)
[2016-08-25] MEDS: NORMODYNE PO SCH ×2 (12:31→22:48)
[2016-08-25 13:00] LABS: Hematocrit 28.6 % (30.3-42.9); Hemoglobin 9.5 gm/dl (10.1-14.3); Mean Corpuscular HGB Conc 33 % (30-34); Mean Corpuscular Hemoglobin 30 pg (28-32); Mean Corpuscular Volume 89 fl (79-97); Platelet Count 106 K/mm3 (140-440); Red Blood Count 3.22 M/mm3 (3.65-5.03); Red Cell Distribution Width 16.5 % (13.2-15.2); White Blood Count 19.4 K/mm3 (4.5-11.0)
[2016-08-25 13:40] LABS: Basophils % (Manual) 0 % (0.0-1.8); Blastocytes % (Manual) 0 %
[2016-08-25 13:41] LABS: Anisocytosis 1+; Burr Cells 2+; Microcytosis Few; Ovalocytes 1+
[2016-08-25 13:42] LABS: Diff Status Complete; Elliptocytes Few; Large Platelets Few; Platelet Estimate Appears Decreased; Polychromasia 1+
--- NOTE | 2016-08-25 16:11 | Progress Note ---
Assessment and Plan Assessment and plan: Patient is 41 yo woman who was in her 3rd trimester of presented due to decrease movement, was done. Hospitalist was called for viral illness, which was diagnosis prior to hospitalization. After patient was evaluated by Hospitalist, Dr. Brown, for the viral illness in recovery room after the ; she developed hypotension and jaundice. She was transferred to the ICU under the [facility] service. Operative note as follows, "Date of operation 08/22/16, Diagnosis #1 Intrauterine gestation at 31+ weeks, # 2 NRFHT, #3 viral infection, #4 BPP 09/11, #5 meconium, Postop diagnosis #1-6 same as above, #7 delivery of viable fetus male operation performed primary low segment transverse , #9 PP hemorrhage, #10 uterine atony, Surgeon :Dr. Melton Anesthesia: General Anesthesiologist: Dr. Mendoza Estimated blood loss 1200 mL, Lindsey catheter to bladder 400 mL clear yellow urine 1. HELLP syndrome suspected, baby delivered,, LFTs trending down, although patient remains very lethergic will continue close monitoring 2. Hypotension: Resolved. repeat AM labns Continue gentle IV fluids 3. Hypoglycemia: IV dextrose 4. Hyperkalemia: Recheck 5. Severe protein calorie malnutrition albumin 1.6, present on admission 6. Acute Kidney injury on CKD likely secodary to vasomotor nephropathy and in the setting of hypotension. Follow in am 7. Acute blood loss anemia- Transfused. 8. Leukocytois- no fever, possible reactive,. will monitor 9. DVT/GI prophy 10. Discussed in detail with sister at bedside History Interval history: Patient seen and examined. Follow up HELLP Syndrome. Patient remains in intensive care unit, still lethargic but communicating although Hoars. Per nursing staff, pateint remains with good urine output and not requiring any pressors. No cp, n/v. Imaging, old records, testing, labs, nursing notes reviewed. Hospitalist Physical - Physical exam Narrative exam: GEN: WDWN, ill appearing, NAD, still lethargic, orientated x 2, CVS: RRR, NORMAL S1S2 LUNGS/CHEST: CTA B, NORMAL CHEST EXPANSION B, GOOD AIR ENTRY B ABD: SOFT, TENDER LOWER QUADRANT STATUS POST SURGICAL INCISION WITH PRESSURE DRESSING APPLIED CLEAN DRY AND INTACT WITH PBS, NO REBOUND OR GUARDING EXT/SKIN: Bilateral leg edema, with anascara MSK: FROM X 4 EXTREMITIES NEURO: CN 2-12 GROSSLY INTACT, NO NEW FOCAL DEFICITS PSY: CALM - Constitutional Vitals: Temp Pulse Resp BP Pulse Ox 97.2 F L 74 12 141/83 96 08/25/16 12:00 08/25/16 14:00 08/25/16 14:00 08/25/16 14:00 08/25/16 14:00 General appearance: Present: no acute distress, other (lethargic) Results - Labs CBC & Chem 7: 08/25/16 12:24 08/25/16 05:45 Labs: Laboratory Last Values WBC 19.4 K/mm3 (4.5-11.0) H 08/25/16 12:24 RBC 3.22 M/mm3 (3.65-5.03) L 08/25/16 12:24 Hgb 9.5 gm/dl (10.1-14.3) L 08/25/16 12:24 Hct 28.6 % (30.3-42.9) L 08/25/16 12:24 MCV 89 fl (79-97) 08/25/16 12:24 MCH 30 pg (28-32) 08/25/16 12:24 MCHC 33 % (30-34) 08/25/16 12:24 RDW 16.5 % (13.2-15.2) H 08/25/16 12:24 Plt Count 106 K/mm3 (140-440) L 08/25/16 12:24 Lymph % (Auto) 14.6 % (13.4-35.0) 08/23/16 05:19 [place] % (Auto) 6.6 % (0.0-7.3) 08/23/16 05:19 Eos % (Auto) 1.2 % (0.0-4.3) 08/23/16 05:19 Baso % (Auto) 0.4 % (0.0-1.8) 08/23/16 05:19 Lymph # Mortising Machine Operator 08/25/16 12:24 [place] # 1.1 K/mm3 (0.0-0.8) H 08/23/16 05:19 Eos # 0.2 K/mm3 (0.0-0.4) 08/23/16 05:19 Baso # 0.1 K/mm3 (0.0-0.1) 08/23/16 05:19 Add Manual Diff Complete 08/25/16 12:24 Total Counted 100 08/25/16 12:24 Seg Neutrophils % 77.2 % (40.0-70.0) H 08/23/16 05:19 Seg Neuts % (Manual) 76.0 % (40.0-70.0) H 08/25/16 12:24 Band Neutrophils % 11.0 % 08/25/16 12:24 Lymphocytes % (Manual) 8.0 % (13.4-35.0) L 08/25/16 12:24 Reactive Lymphs % (Man) 0 % 08/25/16 12:24 Monocytes % (Manual) 0 % (0.0-7.3) 08/25/16 12:24 Eosinophils % (Manual) 1.0 % (0.0-4.3) 08/25/16 12:24 Basophils % (Manual) 0 % (0.0-1.8) 08/25/16 12:24 Metamyelocytes % 1.0 % 08/25/16 12:24 Myelocytes % 2.0 % 08/25/16 12:24 Promyelocytes % 1.0 % 08/25/16 12:24 Blast Cells % 0 % 08/25/16 12:24 Nucleated RBC % 7.0 % (0.0-0.9) H 08/25/16 12:24 Seg Neutrophils # 13.1 K/mm3 (1.8-7.7) H 08/23/16 05:19 Seg Neutrophils # Man 14.7 K/mm3 (1.8-7.7) H 08/25/16 12:24 Band Neutrophils # 2.1 K/mm3 08/25/16 12:24 Lymphocytes # (Manual) 1.6 K/mm3 (1.2-5.4) 08/25/16 12:24 Abs React Lymphs (Man) 0.0 K/mm3 08/25/16 12:24 Monocytes # (Manual) 0.0 K/mm3 (0.0-0.8) 08/25/16 12:24 Eosinophils # (Manual) 0.2 K/mm3 (0.0-0.4) 08/25/16 12:24 Basophils # (Manual) 0.0 K/mm3 (0.0-0.1) 08/25/16 12:24 Metamyelocytes # 0.2 K/mm3 08/25/16 12:24 Myelocytes # 0.4 K/mm3 08/25/16 12:24 Promyelocytes # 0.2 K/mm3 08/25/16 12:24 Blast Cells # 0.0 K/mm3 08/25/16 12:24 WBC Morphology Not Reportable 08/25/16 12:24 Hypersegmented Neuts Not Reportable 08/25/16 12:24 Hyposegmented Neuts Not Reportable 08/25/16 12:24 Hypogranular Neuts Not Reportable 08/25/16 12:24 Smudge Cells Not Reportable 08/25/16 12:24 Toxic Granulation Not Reportable 08/25/16 12:24 Toxic Vacuolation Not Reportable 08/25/16 12:24 Dohle Bodies Not Reportable 08/25/16 12:24 Pelger-Huet Anomaly Not Reportable 08/25/16 12:24 Alaina Rods Not Reportable 08/25/16 12:24 Platelet Estimate Appears decreased 08/25/16 12:24 Clumped Platelets Not Reportable 08/25/16 12:24 Plt Clumps, EDTA Not Reportable 08/25/16 12:24 Large Platelets Few 08/25/16 12:24 Giant Platelets Not Reportable 08/25/16 12:24 Platelet Satelliting Not Reportable 08/25/16 12:24 Plt Morphology Comment Not Reportable 08/25/16 12:24 RBC Morphology Not Reportable 08/25/16 12:24 Dimorphic RBCs Not Reportable 08/25/16 12:24 Polychromasia 1+ 08/25/16 12:24 Hypochromasia Not Reportable 08/25/16 12:24 Poikilocytosis Not Reportable 08/25/16 12:24 Anisocytosis 1+ 08/25/16 12:24 Microcytosis Few 08/25/16 12:24 Macrocytosis Not Reportable 08/25/16 12:24 Spherocytes Not Reportable 08/25/16 12:24 Pappenheimer Bodies Not Reportable 08/25/16 12:24 Sickle Cells Not Reportable 08/25/16 12:24 Target Cells Not Reportable 08/25/16 12:24 Tear Drop Cells Not Reportable 08/25/16 12:24 Ovalocytes 1+ 08/25/16 12:24 Helmet Cells Not Reportable 08/25/16 12:24 [place] Bodies Not Reportable 08/25/16 12:24 [place] Rings Not Reportable 08/25/16 12:24 Humble Cells 2+ 08/25/16 12:24 Bite Cells Not Reportable 08/25/16 12:24 Crenated Cell Not Reportable 08/25/16 12:24 Elliptocytes Few 08/25/16 12:24 Acanthocytes (Spur) Not Reportable 08/25/16 12:24 Rouleaux Not Reportable 08/25/16 12:24 Hemoglobin C Crystals Not Reportable 08/25/16 12:24 Schistocytes Not Reportable 08/25/16 12:24 Malaria parasites Not Reportable 08/25/16 12:24 Sickle Cell Screen Negative (Negative) 08/22/16 18:48 Daljit Bodies Not Reportable 08/25/16 12:24 Hem Pathologist Commnt No 08/25/16 12:24 PT 20.0 Sec. (12.2-14.9) H 08/25/16 05:45 INR 1.70 (0.87-1.13) H 08/25/16 05:45 APTT 42.3 Sec. (24.2-36.6) H 08/25/16 05:45 POC ABG pH 7.479 (7.35-7.45) H 08/24/16 14:12 POC ABG pCO2 29.6 (35-45) L 08/24/16 14:12 POC ABG pO2 62 (80-105) L 08/24/16 14:12 POC ABG HCO3 21.9 08/24/16 14:12 POC ABG Total CO2 23 08/24/16 14:12 POC ABG O2 Sat 93 08/24/16 14:12 POC ABG Base Excess -2 08/24/16 14:12 FiO2 3 % 08/24/16 14:12 Sodium 136 mmol/L (137-145) L 08/25/16 05:45 Potassium 4.1 mmol/L (3.6-5.0) 08/25/16 05:45 Chloride 102.6 mmol/L (98-107) 08/25/16 05:45 Carbon Dioxide 22 mmol/L (22-30) 08/25/16 05:45 Anion Gap 16 mmol/L 08/25/16 05:45 BUN 31 mg/dL (7-17) H 08/25/16 05:45 Creatinine 2.9 mg/dL (0.7-1.2) H 08/25/16 05:45 Estimated GFR 18 ml/min 08/25/16 05:45 BUN/Creatinine Ratio 10.68 % 08/25/16 05:45 Glucose 95 mg/dL (65-100) 08/25/16 05:45 POC Glucose 98 (70-105) 08/25/16 06:31 Lactic Acid 3.0 mmol/L (0.7-2.0) H* 08/24/16 05:00 Calcium 6.7 mg/dL (8.4-10.2) L 08/25/16 05:45 Magnesium 6.5 mg/dL (1.7-2.3) H 08/25/16 12:40 Total Bilirubin 5.7 mg/dL (0.1-1.2) H 08/25/16 05:45 Direct Bilirubin 3.9 mg/dL (0-0.2) H 08/23/16 07:50 Indirect Bilirubin 0.4 mg/dL 08/23/16 07:50 AST 194 units/L (5-40) H 08/25/16 05:45 ALT 119 units/L (7-56) H 08/25/16 05:45 Alkaline Phosphatase 299 units/L (35-129) H 08/25/16 05:45 Ammonia 61.0 umol/L (25-60) H 08/24/16 14:30 Lactate Dehydrogenase 511 units/L (91-180) H 08/23/16 15:30 Total Creatine Kinase 1295 units/L (30-135) H 08/24/16 05:00 Total Protein 4.4 g/dL (6.3-8.2) L 08/25/16 05:45 Albumin 1.7 g/dL (3.9-5) L 08/25/16 05:45 Albumin/Globulin Ratio 0.6 % 08/25/16 05:45 LDL Cholesterol Direct 38 mg/dL (50-130) L 08/23/16 07:50 Urine Opiates Screen Presumptive negative 08/22/16 18:30 Urine Methadone Screen Presumptive negative 08/22/16 18:30 Ur Barbiturates Screen Presumptive negative 08/22/16 18:30 Ur Phencyclidine Scrn Presumptive negative 08/22/16 18:30 Ur Amphetamines Screen Presumptive negative 08/22/16 18:30 U Benzodiazepines Scrn Presumptive negative 08/22/16 18:30 Urine Cocaine Screen Presumptive negative 08/22/16 18:30 U Marijuana (THC) Screen Presumptive negative 08/22/16 18:30 Drugs of Abuse Note Disclamer 08/22/16 18:30 RPR Nonreactive (Nonreactive) 08/22/16 18:34 Hep Bs Antigen Non-reactive (Negative) 08/22/16 18:34 Hepatitis C Antibody Non-reactive (NonReactive) 08/22/16 18:34 HIV 1&2 Antibody Rapid Non react (Non React) 08/23/16 09:25 HIV P24 Antigen Non react (Non React) 08/23/16 09:25 Rubella IgG Antibody Immune (Immune) 08/22/16 18:34 Blood Type O NEGATIVE 08/22/16 16:00 Antibody Screen Positive 08/22/16 16:00 Antibody Identification Anti-D (Passively Aquired) 08/22/16 16:00 KB % Cells Negative 08/22/16 Unknown Crossmatch See Detail 08/22/16 16:00
[2016-08-26 06:06] LABS: Hematocrit 24.4 % (30.3-42.9); Hemoglobin 8.2 gm/dl (10.1-14.3); Mean Corpuscular HGB Conc 34 % (30-34); Mean Corpuscular Hemoglobin 30 pg (28-32); Mean Corpuscular Volume 89 fl (79-97); Red Blood Count 2.73 M/mm3 (3.65-5.03); Red Cell Distribution Width 16.1 % (13.2-15.2); White Blood Count 19.1 K/mm3 (4.5-11.0)
[2016-08-26 06:09] LABS: Platelet Count 95 K/mm3 (140-440)
[2016-08-26 06:29] LABS: BUN/Creatinine Ratio 16.5; Calcium 6.3 mg/dL (8.4-10.2); Chloride 103.6 mmol/L (98-107); Magnesium 4.5 mg/dL (1.7-2.3); Potassium 3.6 mmol/L (3.6-5.0)
[2016-08-26 07:08] LABS: Basophils % (Manual) 0 % (0.0-1.8); Blastocytes % (Manual) 0 %
[2016-08-26 07:09] LABS: Anisocytosis 1+; Burr Cells Rare; Polychromasia 1+
[2016-08-26 07:10] LABS: Diff Status Complete; Platelet Estimate Appears Decreased
--- NOTE | 2016-08-26 07:38 | Progress Note ---
Assessment and Plan Assessment and plan: Patient is 41 yo woman who was in her 3rd trimester of presented due to decrease movement, was done. Hospitalist was called for viral illness, which was diagnosis prior to hospitalization. After patient was evaluated by Hospitalist, Dr. Brown, for the viral illness in recovery room after the ; she developed hypotension and jaundice. She was transferred to the ICU under the [facility] service. Operative note as follows, "Date of operation 08/22/16, Diagnosis #1 Intrauterine gestation at 31+ weeks, # 2 NRFHT, #3 viral infection, #4 BPP 09/11, #5 meconium, Postop diagnosis #1-6 same as above, #7 delivery of viable fetus male operation performed primary low segment transverse , #9 PP hemorrhage, #10 uterine atony, Surgeon :Dr. Melton Anesthesia: General Anesthesiologist: Dr. Mendoza Estimated blood loss 1200 mL, Lindsey catheter to bladder 400 mL clear yellow urine 1. HELLP syndrome suspected, baby delivered,, LFTs continues to his determined down, although patient remains very lethergic will continue close monitoring 2. Hypotension: Resolved. repeat AM labns Continue gentle IV fluids 3. Hypoglycemia: IV dextrose 4. Hyperkalemia: Recheck 5. Severe protein calorie malnutrition albumin 1.6, present on admission 6. Acute Kidney injury on CKD likely secodary to vasomotor nephropathy and in the setting of hypotension. Follow in am 7. Acute blood loss anemia- Transfused. 8. Leukocytois- stable. No fever, possible reactive,. will monitor 9. Thrombocytopenia -we'll obtain an ophthalmology consult to rule out any other complicating pathology. 10. DVT/GI prophy 11. Discussed in detail with sister at bedside History Interval history: Patient seen and examined. Follow up HELLP Syndrome. Patient remains in intensive care unit, improving, verbal this am but still lethargic good urine output and not requiring any pressors. No cp, n/v. Imaging, old records, testing, labs, nursing notes reviewed. Hospitalist Physical - Physical exam Narrative exam: VITAL SIGNS: Reviewed. GENERAL: The patient appeared well nourished and normally developed. Vital signs as documented. HEAD: No signs of head trauma. EYES: Pupils are equal. Extraocular motions intact. EARS: Hearing grossly intact. MOUTH: Oropharynx is normal. NECK: No adenopathy, no JVD. CHEST: Chest with clear breath sounds bilaterally. No wheezes, rales, or rhonchi. CARDIAC: Regular rate and rhythm. S1 and S2, without murmurs, gallops, or rubs. VASCULAR: Peripheral pulses normal and equal in all extremities. ABDOMEN: Soft, tender in the lower quadrant status post surgical incision pressure dressing in place no other drainage noted. No sign of distention. No rebound or guarding, and no masses palpated. Bowel Sounds normal. MUSCULOSKELETAL: Good range of motion of all major joints. Extremities without clubbing, cyanosis. NEUROLOGIC EXAM: Awake, lethargic and oriented to person and place. No focal sensory or strength deficits. Speech normal. Follows commands. PSYCHIATRIC: Mood normal. SKIN: Surgical incision noted no overt drainage. Generalized anasarca. - Constitutional Vitals: Temp Pulse Resp BP Pulse Ox 97.9 F 75 13 136/76 96 08/26/16 07:32 08/26/16 06:00 08/26/16 06:00 08/26/16 06:00 08/26/16 07:13 General appearance: Present: no acute distress, other (lethargic) Results - Labs CBC & Chem 7: 08/26/16 04:50 08/26/16 04:50 Labs: Laboratory Last Values WBC 19.1 K/mm3 (4.5-11.0) H 08/26/16 04:50 RBC 2.73 M/mm3 (3.65-5.03) L 08/26/16 04:50 Hgb 8.2 gm/dl (10.1-14.3) L 08/26/16 04:50 Hct 24.4 % (30.3-42.9) L 08/26/16 04:50 MCV 89 fl (79-97) 08/26/16 04:50 MCH 30 pg (28-32) 08/26/16 04:50 MCHC 34 % (30-34) 08/26/16 04:50 RDW 16.1 % (13.2-15.2) H 08/26/16 04:50 Plt Count 95 K/mm3 (140-440) L 08/26/16 04:50 Lymph % (Auto) 14.6 % (13.4-35.0) 08/23/16 05:19 Rosebud % (Auto) 6.6 % (0.0-7.3) 08/23/16 05:19 Eos % (Auto) 1.2 % (0.0-4.3) 08/23/16 05:19 Baso % (Auto) 0.4 % (0.0-1.8) 08/23/16 05:19 Lymph # Roller Turner 08/26/16 04:50 Rosebud # 1.1 K/mm3 (0.0-0.8) H 08/23/16 05:19 Eos # 0.2 K/mm3 (0.0-0.4) 08/23/16 05:19 Baso # 0.1 K/mm3 (0.0-0.1) 08/23/16 05:19 Add Manual Diff Complete 08/26/16 04:50 Total Counted 100 08/26/16 04:50 Seg Neutrophils % 77.2 % (40.0-70.0) H 08/23/16 05:19 Seg Neuts % (Manual) 86.0 % (40.0-70.0) H 08/26/16 04:50 Band Neutrophils % 0 % 08/26/16 04:50 Lymphocytes % (Manual) 9.0 % (13.4-35.0) L 08/26/16 04:50 Reactive Lymphs % (Man) 0 % 08/26/16 04:50 Monocytes % (Manual) 1.0 % (0.0-7.3) 08/26/16 04:50 Eosinophils % (Manual) 1.0 % (0.0-4.3) 08/26/16 04:50 Basophils % (Manual) 0 % (0.0-1.8) 08/26/16 04:50 Metamyelocytes % 3.0 % 08/26/16 04:50 Myelocytes % 0 % 08/26/16 04:50 Promyelocytes % 0 % 08/26/16 04:50 Blast Cells % 0 % 08/26/16 04:50 Nucleated RBC % 10.0 % (0.0-0.9) H 08/26/16 04:50 Seg Neutrophils # 13.1 K/mm3 (1.8-7.7) H 08/23/16 05:19 Seg Neutrophils # Man 16.4 K/mm3 (1.8-7.7) H 08/26/16 04:50 Band Neutrophils # 0.0 K/mm3 08/26/16 04:50 Lymphocytes # (Manual) 1.7 K/mm3 (1.2-5.4) 08/26/16 04:50 Abs React Lymphs (Man) 0.0 K/mm3 08/26/16 04:50 Monocytes # (Manual) 0.2 K/mm3 (0.0-0.8) 08/26/16 04:50 Eosinophils # (Manual) 0.2 K/mm3 (0.0-0.4) 08/26/16 04:50 Basophils # (Manual) 0.0 K/mm3 (0.0-0.1) 08/26/16 04:50 Metamyelocytes # 0.6 K/mm3 08/26/16 04:50 Myelocytes # 0.0 K/mm3 08/26/16 04:50 Promyelocytes # 0.0 K/mm3 08/26/16 04:50 Blast Cells # 0.0 K/mm3 08/26/16 04:50 WBC Morphology Not Reportable 08/26/16 04:50 Hypersegmented Neuts Not Reportable 08/26/16 04:50 Hyposegmented Neuts Not Reportable 08/26/16 04:50 Hypogranular Neuts Not Reportable 08/26/16 04:50 Smudge Cells Not Reportable 08/26/16 04:50 Toxic Granulation Not Reportable 08/26/16 04:50 Toxic Vacuolation Not Reportable 08/26/16 04:50 Dohle Bodies Not Reportable 08/26/16 04:50 Pelger-Huet Anomaly Not Reportable 08/26/16 04:50 Alaina Rods Not Reportable 08/26/16 04:50 Platelet Estimate Appears decreased 08/26/16 04:50 Clumped Platelets Not Reportable 08/26/16 04:50 Plt Clumps, EDTA Not Reportable 08/26/16 04:50 Large Platelets Not Reportable 08/26/16 04:50 Giant Platelets Not Reportable 08/26/16 04:50 Platelet Satelliting Not Reportable 08/26/16 04:50 Plt Morphology Comment Not Reportable 08/26/16 04:50 RBC Morphology Not Reportable 08/26/16 04:50 Dimorphic RBCs Not Reportable 08/26/16 04:50 Polychromasia 1+ 08/26/16 04:50 Hypochromasia Not Reportable 08/26/16 04:50 Poikilocytosis Not Reportable 08/26/16 04:50 Anisocytosis 1+ 08/26/16 04:50 Microcytosis Not Reportable 08/26/16 04:50 Macrocytosis Not Reportable 08/26/16 04:50 Spherocytes Not Reportable 08/26/16 04:50 Pappenheimer Bodies Not Reportable 08/26/16 04:50 Sickle Cells Not Reportable 08/26/16 04:50 Target Cells Not Reportable 08/26/16 04:50 Tear Drop Cells Not Reportable 08/26/16 04:50 Ovalocytes Not Reportable 08/26/16 04:50 Helmet Cells Not Reportable 08/26/16 04:50 Whittaker-Excelsior Bodies Not Reportable 08/26/16 04:50 Emigrant Rings Not Reportable 08/26/16 04:50 Soumya Cells Rare 08/26/16 04:50 Bite Cells Not Reportable 08/26/16 04:50 Crenated Cell Not Reportable 08/26/16 04:50 Elliptocytes Not Reportable 08/26/16 04:50 Acanthocytes (Spur) Not Reportable 08/26/16 04:50 Rouleaux Not Reportable 08/26/16 04:50 Hemoglobin C Crystals Not Reportable 08/26/16 04:50 Schistocytes Not Reportable 08/26/16 04:50 Malaria parasites Not Reportable 08/26/16 04:50 Sickle Cell Screen Negative (Negative) 08/22/16 18:48 Daljit Bodies Not Reportable 08/26/16 04:50 Hem Pathologist Commnt No 08/26/16 04:50 PT 20.0 Sec. (12.2-14.9) H 08/25/16 05:45 INR 1.70 (0.87-1.13) H 08/25/16 05:45 APTT 42.3 Sec. (24.2-36.6) H 08/25/16 05:45 POC ABG pH 7.479 (7.35-7.45) H 08/24/16 14:12 POC ABG pCO2 29.6 (35-45) L 08/24/16 14:12 POC ABG pO2 62 (80-105) L 08/24/16 14:12 POC ABG HCO3 21.9 08/24/16 14:12 POC ABG Total CO2 23 08/24/16 14:12 POC ABG O2 Sat 93 08/24/16 14:12 POC ABG Base Excess -2 08/24/16 14:12 FiO2 3 % 08/24/16 14:12 Sodium 136 mmol/L (137-145) L 08/26/16 04:50 Potassium 3.6 mmol/L (3.6-5.0) 08/26/16 04:50 Chloride 103.6 mmol/L (98-107) 08/26/16 04:50 Carbon Dioxide 22 mmol/L (22-30) 08/26/16 04:50 Anion Gap 14 mmol/L 08/26/16 04:50 BUN 33 mg/dL (7-17) H 08/26/16 04:50 Creatinine 2.0 mg/dL (0.7-1.2) H 08/26/16 04:50 Estimated GFR 28 ml/min 08/26/16 04:50 BUN/Creatinine Ratio 16.50 % 08/26/16 04:50 Glucose 91 mg/dL (65-100) 08/26/16 04:50 POC Glucose 90 (70-105) 08/26/16 05:44 Lactic Acid 3.0 mmol/L (0.7-2.0) H* 08/24/16 05:00 Calcium 6.3 mg/dL (8.4-10.2) L 08/26/16 04:50 Magnesium 4.5 mg/dL (1.7-2.3) H 08/26/16 04:50 Total Bilirubin 5.7 mg/dL (0.1-1.2) H 08/25/16 05:45 Direct Bilirubin 3.9 mg/dL (0-0.2) H 08/23/16 07:50 Indirect Bilirubin 0.4 mg/dL 08/23/16 07:50 AST 194 units/L (5-40) H 08/25/16 05:45 ALT 119 units/L (7-56) H 08/25/16 05:45 Alkaline Phosphatase 299 units/L (35-129) H 08/25/16 05:45 Ammonia 61.0 umol/L (25-60) H 08/24/16 14:30 Lactate Dehydrogenase 511 units/L (91-180) H 08/23/16 15:30 Total Creatine Kinase 1295 units/L (30-135) H 08/24/16 05:00 Total Protein 4.4 g/dL (6.3-8.2) L 08/25/16 05:45 Albumin 1.7 g/dL (3.9-5) L 08/25/16 05:45 Albumin/Globulin Ratio 0.6 % 08/25/16 05:45 LDL Cholesterol Direct 38 mg/dL (50-130) L 08/23/16 07:50 Urine Opiates Screen Presumptive negative 08/22/16 18:30 Urine Methadone Screen Presumptive negative 08/22/16 18:30 Ur Barbiturates Screen Presumptive negative 08/22/16 18:30 Ur Phencyclidine Scrn Presumptive negative 08/22/16 18:30 Ur Amphetamines Screen Presumptive negative 08/22/16 18:30 U Benzodiazepines Scrn Presumptive negative 08/22/16 18:30 Urine Cocaine Screen Presumptive negative 08/22/16 18:30 U Marijuana (THC) Screen Presumptive negative 08/22/16 18:30 Drugs of Abuse Note Disclamer 08/22/16 18:30 RPR Nonreactive (Nonreactive) 08/22/16 18:34 Hep Bs Antigen Non-reactive (Negative) 08/22/16 18:34 Hepatitis C Antibody Non-reactive (NonReactive) 08/22/16 18:34 HIV 1&2 Antibody Rapid Non react (Non React) 08/23/16 09:25 HIV P24 Antigen Non react (Non React) 08/23/16 09:25 Rubella IgG Antibody Immune (Immune) 08/22/16 18:34 Blood Type O NEGATIVE 08/22/16 16:00 Antibody Screen Positive 08/22/16 16:00 Antibody Identification Anti-D (Passively Aquired) 08/22/16 16:00 KB % Cells Negative 08/22/16 Unknown Crossmatch See Detail 08/22/16 16:00
[2016-08-26] MEDS: D5W 1,000 ML IV SCH ×2 (08:19→21:53)
[2016-08-26 09:00] LABS: Albumin 1.6 g/dL (3.9-5); Albumin/Globulin Ratio 0.6 %; Bilirubin,Direct 6.6 mg/dL (0-0.2); Bilirubin,Total 7.6 mg/dL (0.1-1.2); Total Protein 4.1 g/dL (6.3-8.2)
--- NOTE | 2016-08-26 09:32 | Progress Note ---
Assessment and Plan HELLP syndrome, suspected, status post Hypotension, resolved . Blood pressure now controlled and improving Hypoglycemia: IV dextrose. Still no able to eat due to some concerns about her neurological status. Abnormal liver enzymes. Liver profile including INR trending back to normal Renal failure. Improving but still abnormal Leukocytosis.Still active , no fever. Peripheral smear ordered, n/a, called laboratory second request thrombocytopenia. No bleeding reported Hyperkalemia: Improving Metabolic encephalopathy. She probably having problems clearing her morphine due to renal impairment. Recommendations, Continue gentle fluids I/O I instructed the nurses to hold her morphine for now and spread her dose to every 6 hours when needed. Allow the patient to wake up during the day before morphine is given Peripheral smear Hematology consult if thrombocytopenia worsens from current level Discussed with family. Critical care time was 35 minutes in patient evaluation [id number] coordination of care. Subjective Date of service: 08/26/16 Principal diagnosis: HELLP syndrome, status post Interval history: Feels weak, no headaches still sleepy, getting morphine. Pain appears to be minimal at this time. No cough or expectoration. Objective Vital Signs - 12hr 08/25/16 08/25/16 08/25/16 22:00 22:48 23:00 Temperature Pulse Rate 70 76 74 Pulse Rate [ From Monitor] Respiratory 12 14 Rate Blood Pressure 129/74 119/71 134/76 O2 Sat by Pulse 97 97 Oximetry 08/25/16 08/25/16 08/26/16 23:11 23:36 00:00 Temperature 98.2 F Pulse Rate 74 73 Pulse Rate [ 76 From Monitor] Respiratory 16 14 14 Rate Blood Pressure 110/63 123/66 O2 Sat by Pulse 94 98 Oximetry 08/26/16 08/26/16 08/26/16 01:00 01:12 02:00 Temperature Pulse Rate 72 72 73 Pulse Rate [ From Monitor] Respiratory 12 11 L 13 Rate Blood Pressure 108/67 108/67 113/69 O2 Sat by Pulse 97 98 96 Oximetry 08/26/16 08/26/16 08/26/16 02:20 03:00 04:00 Temperature 98.3 F Pulse Rate 76 74 72 Pulse Rate [ 78 From Monitor] Respiratory 12 14 13 Rate Blood Pressure 113/69 124/67 135/68 O2 Sat by Pulse 98 96 98 Oximetry 08/26/16 08/26/16 08/26/16 04:33 05:00 05:52 Temperature Pulse Rate 75 75 76 Pulse Rate [ From Monitor] Respiratory 11 L 13 11 L Rate Blood Pressure 128/65 123/66 123/66 O2 Sat by Pulse 97 95 98 Oximetry 08/26/16 08/26/16 08/26/16 06:00 06:30 07:00 Temperature Pulse Rate 75 75 75 Pulse Rate [ From Monitor] Respiratory 13 14 13 Rate Blood Pressure 136/76 136/76 122/71 O2 Sat by Pulse 96 97 96 Oximetry 08/26/16 08/26/16 08/26/16 07:13 07:32 08:00 Temperature 97.9 F Pulse Rate 75 Pulse Rate [ From Monitor] Respiratory 14 Rate Blood Pressure 144/80 O2 Sat by Pulse 96 96 Oximetry Constitutional: no acute distress, other (sleepy, easily arousable and able to answer questions) Eyes: non-icteric ENT: oropharynx moist Neck: supple Ascultation: Bilateral: clear Cardiovascular: regular rate and rhythm Gastrointestinal: normoactive bowel sounds, non-distended Integumentary: normal Extremities: no cyanosis, no cyanosis, no cyanosis Neurologic: non-focal exam, pupils equal and round, CN II-XII normal, motor strength normal and CBC and BMP: 08/26/16 04:50 08/26/16 04:50 ABG, PT/INR, D-dimer: ABG POC ABG pH 7.479 (7.35-7.45) H 08/24/16 14:12 POC ABG pCO2 29.6 (35-45) L 08/24/16 14:12 POC ABG pO2 62 (80-105) L 08/24/16 14:12 POC ABG HCO3 21.9 08/24/16 14:12 POC ABG Total CO2 23 08/24/16 14:12 POC ABG O2 Sat 93 08/24/16 14:12 PT/INR, D-dimer PT 20.0 Sec. (12.2-14.9) H 08/25/16 05:45 INR 1.70 (0.87-1.13) H 08/25/16 05:45 Abnormal lab findings: Abnormal Labs 08/22/16 08/22/16 08/22/16 16:00 16:00 17:38 WBC RBC 3.64 L Hgb Hct RDW Plt Count 137 L Lymph % (Auto) 12.3 L [place] # Seg Neutrophils % 81.9 H Seg Neuts % (Manual) Lymphocytes % (Manual) Nucleated RBC % Seg Neutrophils # 8.3 H Seg Neutrophils # Man PT INR APTT POC ABG pH 7.117 L POC ABG pCO2 49.2 H POC ABG pO2 20 L Sodium Potassium Chloride Carbon Dioxide BUN Creatinine Glucose POC Glucose Lactic Acid Calcium Magnesium Total Bilirubin Direct Bilirubin AST ALT Alkaline Phosphatase Ammonia Lactate Dehydrogenase Total Creatine Kinase Total Protein Albumin LDL Cholesterol Direct Crossmatch See Detail 08/22/16 08/22/16 08/23/16 17:43 18:48 05:19 WBC 13.2 H 17.0 H RBC 3.62 L 3.16 L Hgb 9.9 L Hct RDW Plt Count 115 L 125 L Lymph % (Auto) 8.8 L [place] # 1.1 H Seg Neutrophils % 87.0 H 77.2 H Seg Neuts % (Manual) Lymphocytes % (Manual) Nucleated RBC % Seg Neutrophils # 11.5 H 13.1 H Seg Neutrophils # Man PT INR APTT POC ABG pH 7.078 L POC ABG pCO2 POC ABG pO2 25 L Sodium Potassium Chloride Carbon Dioxide BUN Creatinine Glucose POC Glucose Lactic Acid Calcium Magnesium Total Bilirubin Direct Bilirubin AST ALT Alkaline Phosphatase Ammonia Lactate Dehydrogenase Total Creatine Kinase Total Protein Albumin LDL Cholesterol Direct Crossmatch 08/23/16 08/23/16 08/23/16 07:50 07:50 08:19 WBC RBC Hgb 9.7 L Hct 30.0 L RDW Plt Count Lymph % (Auto) [place] # Seg Neutrophils % Seg Neuts % (Manual) Lymphocytes % (Manual) Nucleated RBC % Seg Neutrophils # Seg Neutrophils # Man PT 23.7 H INR 2.11 H APTT POC ABG pH POC ABG pCO2 POC ABG pO2 Sodium Potassium 5.9 H Chloride Carbon Dioxide 12 L BUN 18 H Creatinine 3.1 H Glucose 39 L* POC Glucose Lactic Acid Calcium Magnesium Total Bilirubin 4.3 H Direct Bilirubin 3.9 H AST 676 H ALT 470 H Alkaline Phosphatase 394 H Ammonia Lactate Dehydrogenase Total Creatine Kinase Total Protein 4.3 L Albumin 1.6 L LDL Cholesterol Direct 38 L Crossmatch 08/23/16 08/23/16 08/23/16 08:39 09:00 09:25 WBC RBC Hgb Hct RDW Plt Count Lymph % (Auto) [place] # Seg Neutrophils % Seg Neuts % (Manual) Lymphocytes % (Manual) Nucleated RBC % Seg Neutrophils # Seg Neutrophils # Prince PT INR APTT POC ABG pH POC ABG pCO2 POC ABG pO2 Sodium Potassium Chloride Carbon Dioxide BUN Creatinine Glucose POC Glucose 52 L 178 H Lactic Acid 10.0 H* Calcium Magnesium Total Bilirubin Direct Bilirubin AST ALT Alkaline Phosphatase Ammonia Lactate Dehydrogenase Total Creatine Kinase Total Protein Albumin LDL Cholesterol Direct Crossmatch 08/23/16 08/23/16 08/23/16 11:05 12:02 12:26 WBC RBC Hgb Hct RDW Plt Count Lymph % (Auto) [place] # Seg Neutrophils % Seg Neuts % (Manual) Lymphocytes % (Manual) Nucleated RBC % Seg Neutrophils # Seg Neutrophils # Prince PT INR APTT POC ABG pH POC ABG pCO2 POC ABG pO2 Sodium Potassium 5.5 H Chloride Carbon Dioxide 13 L BUN 19 H Creatinine 3.1 H Glucose 124 H POC Glucose 134 H 130 H Lactic Acid Calcium 8.3 L Magnesium Total Bilirubin 4.4 H Direct Bilirubin AST 521 H ALT 377 H Alkaline Phosphatase 345 H Ammonia Lactate Dehydrogenase Total Creatine Kinase Total Protein 4.6 L Albumin 1.9 L LDL Cholesterol Direct Crossmatch 08/23/16 08/23/16 08/23/16 12:49 15:30 15:30 WBC RBC Hgb Hct RDW Plt Count Lymph % (Auto) [place] # Seg Neutrophils % Seg Neuts % (Manual) Lymphocytes % (Manual) Nucleated RBC % Seg Neutrophils # Seg Neutrophils # Prince PT 21.4 H INR 1.86 H APTT POC ABG pH POC ABG pCO2 POC ABG pO2 Sodium Potassium 5.1 H Chloride Carbon Dioxide BUN Creatinine Glucose POC Glucose 145 H Lactic Acid Calcium Magnesium Total Bilirubin Direct Bilirubin AST ALT Alkaline Phosphatase Ammonia Lactate Dehydrogenase 511 H Total Creatine Kinase Total Protein Albumin LDL Cholesterol Direct Crossmatch 08/23/16 08/23/16 08/23/16 15:30 15:30 15:56 WBC RBC Hgb Hct RDW Plt Count Lymph % (Auto) [place] # Seg Neutrophils % Seg Neuts % (Manual) Lymphocytes % (Manual) Nucleated RBC % Seg Neutrophils # Seg Neutrophils # Man PT INR APTT POC ABG pH POC ABG pCO2 POC ABG pO2 Sodium Potassium Chloride Carbon Dioxide BUN Creatinine Glucose POC Glucose 138 H Lactic Acid 7.1 H* Calcium Magnesium Total Bilirubin Direct Bilirubin AST ALT Alkaline Phosphatase Ammonia Lactate Dehydrogenase Total Creatine Kinase 1275 H Total Protein Albumin LDL Cholesterol Direct Crossmatch 08/23/16 08/23/16 08/23/16 16:19 17:30 18:02 WBC RBC Hgb Hct RDW Plt Count Lymph % (Auto) [place] # Seg Neutrophils % Seg Neuts % (Manual) Lymphocytes % (Manual) Nucleated RBC % Seg Neutrophils # Seg Neutrophils # Man PT INR APTT POC ABG pH 7.288 L POC ABG pCO2 28.5 L POC ABG pO2 66 L Sodium Potassium Chloride Carbon Dioxide BUN Creatinine Glucose POC Glucose 109 H 123 H Lactic Acid Calcium Magnesium Total Bilirubin Direct Bilirubin AST ALT Alkaline Phosphatase Ammonia Lactate Dehydrogenase Total Creatine Kinase Total Protein Albumin LDL Cholesterol Direct Crossmatch 08/23/16 08/23/16 08/23/16 20:05 20:23 21:50 WBC RBC Hgb Hct RDW Plt Count Lymph % (Auto) [place] # Seg Neutrophils % Seg Neuts % (Manual) Lymphocytes % (Manual) Nucleated RBC % Seg Neutrophils # Seg Neutrophils # Man PT 22.5 H INR 1.98 H APTT POC ABG pH POC ABG pCO2 POC ABG pO2 Sodium Potassium Chloride Carbon Dioxide 15 L BUN 19 H Creatinine 2.9 H Glucose 117 H POC Glucose 129 H Lactic Acid Calcium 7.3 L Magnesium Total Bilirubin 4.9 H Direct Bilirubin AST 369 H ALT 258 H Alkaline Phosphatase 291 H Ammonia Lactate Dehydrogenase Total Creatine Kinase Total Protein 4.3 L Albumin 1.7 L LDL Cholesterol Direct Crossmatch 08/23/16 08/23/16 08/23/16 21:50 21:50 22:16 WBC RBC Hgb Hct RDW Plt Count Lymph % (Auto) [place] # Seg Neutrophils % Seg Neuts % (Manual) Lymphocytes % (Manual) Nucleated RBC % Seg Neutrophils # Seg Neutrophils # Man PT INR APTT POC ABG pH POC ABG pCO2 POC ABG pO2 Sodium Potassium Chloride Carbon Dioxide BUN Creatinine Glucose POC Glucose 134 H Lactic Acid 4.6 H* Calcium Magnesium Total Bilirubin Direct Bilirubin AST ALT Alkaline Phosphatase Ammonia Lactate Dehydrogenase Total Creatine Kinase 1410 H Total Protein Albumin LDL Cholesterol Direct Crossmatch 08/24/16 08/24/16 08/24/16 00:13 01:47 02:37 WBC RBC Hgb Hct RDW Plt Count Lymph % (Auto) [place] # Seg Neutrophils % Seg Neuts % (Manual) Lymphocytes % (Manual) Nucleated RBC % Seg Neutrophils # Seg Neutrophils # Man PT INR APTT POC ABG pH POC ABG pCO2 POC ABG pO2 Sodium Potassium Chloride Carbon Dioxide BUN Creatinine Glucose POC Glucose 120 H 116 H 107 H Lactic Acid Calcium Magnesium Total Bilirubin Direct Bilirubin AST ALT Alkaline Phosphatase Ammonia Lactate Dehydrogenase Total Creatine Kinase Total Protein Albumin LDL Cholesterol Direct Crossmatch 08/24/16 08/24/16 08/24/16 03:25 04:10 05:00 WBC 12.7 H RBC 2.18 L Hgb 6.7 L D Hct 20.4 L D RDW Plt Count 102 L Lymph % (Auto) [place] # Seg Neutrophils % Seg Neuts % (Manual) Lymphocytes % (Manual) Nucleated RBC % Seg Neutrophils # Seg Neutrophils # Prince PT INR APTT POC ABG pH POC ABG pCO2 POC ABG pO2 Sodium Potassium Chloride Carbon Dioxide BUN Creatinine Glucose POC Glucose 108 H 114 H Lactic Acid Calcium Magnesium Total Bilirubin Direct Bilirubin AST ALT Alkaline Phosphatase Ammonia Lactate Dehydrogenase Total Creatine Kinase Total Protein Albumin LDL Cholesterol Direct Crossmatch 08/24/16 08/24/16 08/24/16 05:00 05:00 05:00 WBC RBC Hgb Hct RDW Plt Count Lymph % (Auto) [place] # Seg Neutrophils % Seg Neuts % (Manual) Lymphocytes % (Manual) Nucleated RBC % Seg Neutrophils # Seg Neutrophils # Prince PT 22.1 H INR 1.93 H APTT POC ABG pH POC ABG pCO2 POC ABG pO2 Sodium Potassium Chloride 108.0 H Carbon Dioxide 19 L BUN 21 H Creatinine 2.7 H Glucose POC Glucose Lactic Acid 3.0 H* Calcium 6.8 L Magnesium Total Bilirubin 4.6 H Direct Bilirubin AST 303 H ALT 204 H Alkaline Phosphatase 280 H Ammonia Lactate Dehydrogenase Total Creatine Kinase 1295 H Total Protein 4.1 L Albumin 1.6 L LDL Cholesterol Direct Crossmatch 08/24/16 08/24/16 08/24/16 14:12 14:30 17:45 WBC RBC Hgb Hct RDW Plt Count Lymph % (Auto) [place] # Seg Neutrophils % Seg Neuts % (Manual) Lymphocytes % (Manual) Nucleated RBC % Seg Neutrophils # Seg Neutrophils # Prince PT INR APTT POC ABG pH 7.479 H POC ABG pCO2 29.6 L POC ABG pO2 62 L Sodium Potassium Chloride Carbon Dioxide BUN Creatinine Glucose POC Glucose Lactic Acid Calcium Magnesium 4.7 H Total Bilirubin Direct Bilirubin AST ALT Alkaline Phosphatase Ammonia 61.0 H Lactate Dehydrogenase Total Creatine Kinase Total Protein Albumin LDL Cholesterol Direct Crossmatch 08/24/16 08/25/16 08/25/16 23:30 00:55 02:14 WBC RBC Hgb Hct RDW Plt Count Lymph % (Auto) [place] # Seg Neutrophils % Seg Neuts % (Manual) Lymphocytes % (Manual) Nucleated RBC % Seg Neutrophils # Seg Neutrophils # Prince PT INR APTT POC ABG pH POC ABG pCO2 POC ABG pO2 Sodium Potassium Chloride Carbon Dioxide BUN Creatinine Glucose POC Glucose 108 H 106 H Lactic Acid Calcium Magnesium 6.7 H Total Bilirubin Direct Bilirubin AST ALT Alkaline Phosphatase Ammonia Lactate Dehydrogenase Total Creatine Kinase Total Protein Albumin LDL Cholesterol Direct Crossmatch 08/25/16 08/25/16 08/25/16 05:45 05:45 05:45 WBC 19.1 H RBC 3.24 L Hgb 9.7 L D Hct 29.1 L D RDW 16.1 H Plt Count 112 L Lymph % (Auto) [place] # Seg Neutrophils % Seg Neuts % (Manual) Lymphocytes % (Manual) Nucleated RBC % Seg Neutrophils # Seg Neutrophils # Prince PT 20.0 H INR 1.70 H APTT 42.3 H POC ABG pH POC ABG pCO2 POC ABG pO2 Sodium Potassium Chloride Carbon Dioxide BUN Creatinine Glucose POC Glucose Lactic Acid Calcium Magnesium 7.2 H Total Bilirubin Direct Bilirubin AST ALT Alkaline Phosphatase Ammonia Lactate Dehydrogenase Total Creatine Kinase Total Protein Albumin LDL Cholesterol Direct Crossmatch 08/25/16 08/25/16 08/25/16 05:45 12:24 12:40 WBC 19.4 H RBC 3.22 L Hgb 9.5 L Hct 28.6 L RDW 16.5 H Plt Count 106 L Lymph % (Auto) [place] # Seg Neutrophils % Seg Neuts % (Manual) 76.0 H Lymphocytes % (Manual) 8.0 L Nucleated RBC % 7.0 H Seg Neutrophils # Seg Neutrophils # Man 14.7 H PT INR APTT POC ABG pH POC ABG pCO2 POC ABG pO2 Sodium 136 L Potassium Chloride Carbon Dioxide BUN 31 H Creatinine 2.9 H Glucose POC Glucose Lactic Acid Calcium 6.7 L Magnesium 6.5 H Total Bilirubin 5.7 H Direct Bilirubin AST 194 H ALT 119 H Alkaline Phosphatase 299 H Ammonia Lactate Dehydrogenase Total Creatine Kinase Total Protein 4.4 L Albumin 1.7 L LDL Cholesterol Direct Crossmatch 08/25/16 08/25/16 08/25/16 17:53 19:56 23:18 WBC RBC Hgb Hct RDW Plt Count Lymph % (Auto) [place] # Seg Neutrophils % Seg Neuts % (Manual) Lymphocytes % (Manual) Nucleated RBC % Seg Neutrophils # Seg Neutrophils # Man PT INR APTT POC ABG pH POC ABG pCO2 POC ABG pO2 Sodium Potassium Chloride Carbon Dioxide BUN Creatinine Glucose POC Glucose 107 H Lactic Acid Calcium Magnesium 5.9 H 5.2 H Total Bilirubin Direct Bilirubin AST ALT Alkaline Phosphatase Ammonia Lactate Dehydrogenase Total Creatine Kinase Total Protein Albumin LDL Cholesterol Direct Crossmatch 08/26/16 08/26/16 08/26/16 04:50 04:50 08:26 WBC 19.1 H RBC 2.73 L Hgb 8.2 L Hct 24.4 L RDW 16.1 H Plt Count 95 L Lymph % (Auto) [place] # Seg Neutrophils % Seg Neuts % (Manual) 86.0 H Lymphocytes % (Manual) 9.0 L Nucleated RBC % 10.0 H Seg Neutrophils # Seg Neutrophils # Man 16.4 H PT INR APTT POC ABG pH POC ABG pCO2 POC ABG pO2 Sodium 136 L Potassium Chloride Carbon Dioxide BUN 33 H Creatinine 2.0 H Glucose POC Glucose Lactic Acid Calcium 6.3 L Magnesium 4.5 H Total Bilirubin 7.6 H Direct Bilirubin 6.6 H AST 112 H ALT 63 H Alkaline Phosphatase 253 H Ammonia Lactate Dehydrogenase Total Creatine Kinase Total Protein 4.1 L Albumin 1.6 L LDL Cholesterol Direct Crossmatch
[2016-08-26 10:51] LABS: Smear for Schistocytes Rare; Smear for Spherocytes Rare
[2016-08-26] MEDS: NORMODYNE PO SCH ×2 (11:22→21:53)
[2016-08-26] MEDS: FEOSOL PO SCH (11:22)
--- NOTE | 2016-08-26 12:20 | Progress Note ---
Assessment and Plan POD 4 s/p c/s. Improving HELLP. Will check blood culture Subjective - Subjective Date of service: 08/26/16 Principal diagnosis: HELLP syndrome- resolving, status post Interval history: Pt currently in ICU. pt noted to have elevated liver enzymes ( Improving), anemia. Pt more arousable this morning. verbalizing minimally. pt did take some clear liquids last pm. Blood cultures to be drawn for elevated wbc's. Urine is less bloody today than previously Patient reports: appetite poor [place]: transported Objective - Vital Signs Latest vital signs: Vital Signs Temp Pulse Pulse Resp BP Pulse Ox 08/26/16 10:00 74 15 131/74 96 08/26/16 09:00 76 14 131/70 95 08/26/16 08:26 76 15 144/80 96 08/26/16 08:00 75 14 144/80 96 08/26/16 07:32 97.9 F 08/26/16 07:13 96 08/26/16 07:00 75 13 122/71 96 08/26/16 06:30 75 14 136/76 97 08/26/16 06:00 75 13 136/76 96 08/26/16 05:52 76 11 L 123/66 98 08/26/16 05:00 75 13 123/66 95 08/26/16 04:33 75 11 L 128/65 97 08/26/16 04:00 98.3 F 72 78 13 135/68 98 08/26/16 03:00 74 14 124/67 96 08/26/16 02:20 76 12 113/69 98 08/26/16 02:00 73 13 113/69 96 08/26/16 01:12 72 11 L 108/67 98 08/26/16 01:00 72 12 108/67 97 08/26/16 00:00 98.2 F 73 76 14 123/66 98 08/25/16 23:36 74 14 110/63 94 08/25/16 23:11 16 08/25/16 23:00 74 14 134/76 97 08/25/16 22:48 76 119/71 08/25/16 22:00 70 12 129/74 97 08/25/16 21:00 71 12 117/72 97 08/25/16 20:52 98 08/25/16 20:00 98.4 F 68 70 12 120/73 96 08/25/16 19:00 69 12 125/71 95 08/25/16 18:06 70 11 L 127/75 97 08/25/16 18:00 69 11 L 127/75 96 08/25/16 17:42 69 11 L 131/70 96 08/25/16 17:00 75 13 133/79 95 08/25/16 16:22 74 11 L 152/74 97 08/25/16 16:00 97.1 F L 75 12 152/74 95 08/25/16 15:00 74 13 154/79 94 08/25/16 14:40 73 11 L 147/83 97 08/25/16 14:00 74 12 141/83 96 08/25/16 13:00 76 10 L 143/77 94 08/25/16 12:31 78 130/81 Intake and Output 08/25/16 08/26/16 08/26/16 22:59 06:59 14:59 Intake Total 645 600 150 Output Total 285 405 Balance 360 195 150 Intake: IV 600 600 150 D5w 1,000 ml @ 75 mls/hr 600 600 150 IV DIRECT [facility] Rx#: [id number] Oral 45 Output: Urine 285 405 Indwelling Catheter 285 405 Other: Total, Intake Amount 45 Total, Output Amount 50 55 Voiding Method Indwelling Catheter Indwelling Catheter Indwelling Catheter - Exam Breasts: Present: deferred Cardiovascular: Present: Regular rate, Normal S1, Normal S2 Lungs: Present: Clear to auscultation Abdomen: Present: normal appearance, soft Uterus: Present: fundal height below umbilicus Extremities: Present: edema (bilaterally, 2+ left greater than right. ) Incision: Present: normal, intact, other (small amount of bleeding. justyn in place ) - Labs Labs: Abnormal lab results 08/25/16 08/25/16 08/25/16 Range/Units 12:24 12:40 17:53 WBC 19.4 H (4.5-11.0) K/mm3 RBC 3.22 L (3.65-5.03) M/mm3 Hgb 9.5 L (10.1-14.3) gm/dl Hct 28.6 L (30.3-42.9) % RDW 16.5 H (13.2-15.2) % Plt Count 106 L (140-440) K/mm3 Seg Neuts % (Manual) 76.0 H (40.0-70.0) % Lymphocytes % (Manual) 8.0 L (13.4-35.0) % Nucleated RBC % 7.0 H (0.0-0.9) % Seg Neutrophils # Prince 14.7 H (1.8-7.7) K/mm3 Sodium (137-145) mmol/L BUN (7-17) mg/dL Creatinine (0.7-1.2) mg/dL POC Glucose (70-105) Calcium (8.4-10.2) mg/dL Magnesium 6.5 H 5.9 H (1.7-2.3) mg/dL Total Bilirubin (0.1-1.2) mg/dL Direct Bilirubin (0-0.2) mg/dL AST (5-40) units/L ALT (7-56) units/L Alkaline Phosphatase (35-129) units/L Total Protein (6.3-8.2) g/dL Albumin (3.9-5) g/dL 08/25/16 08/25/16 08/26/16 Range/Units 19:56 23:18 04:50 WBC 19.1 H (4.5-11.0) K/mm3 RBC 2.73 L (3.65-5.03) M/mm3 Hgb 8.2 L (10.1-14.3) gm/dl Hct 24.4 L (30.3-42.9) % RDW 16.1 H (13.2-15.2) % Plt Count 95 L (140-440) K/mm3 Seg Neuts % (Manual) 86.0 H (40.0-70.0) % Lymphocytes % (Manual) 9.0 L (13.4-35.0) % Nucleated RBC % 10.0 H (0.0-0.9) % Seg Neutrophils # Prince 16.4 H (1.8-7.7) K/mm3 Sodium (137-145) mmol/L BUN (7-17) mg/dL Creatinine (0.7-1.2) mg/dL POC Glucose 107 H (70-105) Calcium (8.4-10.2) mg/dL Magnesium 5.2 H (1.7-2.3) mg/dL Total Bilirubin (0.1-1.2) mg/dL Direct Bilirubin (0-0.2) mg/dL AST (5-40) units/L ALT (7-56) units/L Alkaline Phosphatase (35-129) units/L Total Protein (6.3-8.2) g/dL Albumin (3.9-5) g/dL 08/26/16 08/26/16 Range/Units 04:50 08:26 WBC (4.5-11.0) K/mm3 RBC (3.65-5.03) M/mm3 Hgb (10.1-14.3) gm/dl Hct (30.3-42.9) % RDW (13.2-15.2) % Plt Count (140-440) K/mm3 Seg Neuts % (Manual) (40.0-70.0) % Lymphocytes % (Manual) (13.4-35.0) % Nucleated RBC % (0.0-0.9) % Seg Neutrophils # Man (1.8-7.7) K/mm3 Sodium 136 L (137-145) mmol/L BUN 33 H (7-17) mg/dL Creatinine 2.0 H (0.7-1.2) mg/dL POC Glucose (70-105) Calcium 6.3 L (8.4-10.2) mg/dL Magnesium 4.5 H (1.7-2.3) mg/dL Total Bilirubin 7.6 H (0.1-1.2) mg/dL Direct Bilirubin 6.6 H (0-0.2) mg/dL AST 112 H (5-40) units/L ALT 63 H (7-56) units/L Alkaline Phosphatase 253 H (35-129) units/L Total Protein 4.1 L (6.3-8.2) g/dL Albumin 1.6 L (3.9-5) g/dL
--- NOTE | 2016-08-26 13:57 | Event Note ---
Date: 08/26/16 Called lab looking for results of [place]. Lab states that it was a send out and no results are back. Theyn say it will take at least 4-5 days. This is day 4. recommended that I call tomorrow am -[id number].
[2016-08-26 19:40] LABS: TOXOPLASMA IGM AB Negative (Negative)
[2016-08-27 06:43] LABS: Hemoglobin 6.3 gm/dl (10.1-14.3); Mean Corpuscular HGB Conc 32 % (30-34); Mean Corpuscular Hemoglobin 29 pg (28-32); Mean Corpuscular Volume 91 fl (79-97); Platelet Count 103 K/mm3 (140-440); Red Blood Count 2.19 M/mm3 (3.65-5.03); Red Cell Distribution Width 16.2 % (13.2-15.2); White Blood Count 16.1 K/mm3 (4.5-11.0)
[2016-08-27 07:13] LABS: Albumin 1.5 g/dL (3.9-5); Albumin/Globulin Ratio 0.7 %; BUN/Creatinine Ratio 28.18; Bilirubin,Total 9.7 mg/dL (0.1-1.2); Calcium 6.4 mg/dL (8.4-10.2); Chloride 101.8 mmol/L (98-107); Potassium 4.1 mmol/L (3.6-5.0); Total Protein 3.8 g/dL (6.3-8.2)
[2016-08-27 07:30] LABS: Hematocrit 19.9 % (30.3-42.9)
[2016-08-27] MEDS ORDERED: NACL 0.9% 500 ML 500 ML IV ONE (08:34)
[2016-08-27 08:50] LABS: Anisocytosis 1+; Basophils % (Manual) 0 % (0.0-1.8); Blastocytes % (Manual) 0 %; Eosinophils % (Manual) 0 % (0.0-4.3); Polychromasia 1+
[2016-08-27 08:51] LABS: Burr Cells Rare; Diff Status Complete; Schistocytes Rare
[2016-08-27 09:16] LABS: Hemoglobin 6.1 gm/dl (10.1-14.3)
--- NOTE | 2016-08-27 09:29 | Progress Note ---
Assessment and Plan POD # 5. Pt currently Jaundice, increasing total bilirubin, decreasing liver enzymes. Anemia- will transfuse. Hematology consult pending, Abd sono ordered. Subjective - Subjective Date of service: 08/27/16 Principal diagnosis: HELLP syndrome- resolving, status post Interval history: Pt currently in ICU. pt noted to have elevated liver enzymes ( Improving), anemia. Pt more arousable this morning. verbalizing minimally. pt did take some clear liquids last pm. Blood cultures to be drawn for elevated wbc's. Urine is less bloody today than previously Patient reports: appetite poor : transported Objective - Vital Signs Latest vital signs: Vital Signs Temp Pulse Pulse Resp BP Pulse Ox 08/27/16 09:00 80 15 121/64 96 08/27/16 08:42 98 08/27/16 08:00 98.3 F 86 22 135/74 93 08/27/16 07:00 84 17 117/71 93 08/27/16 06:42 86 19 116/69 97 08/27/16 06:00 84 17 123/68 95 08/27/16 05:00 84 16 108/54 97 08/27/16 04:58 83 16 119/54 97 08/27/16 04:00 98.9 F 81 81 20 119/64 91 08/27/16 03:00 84 18 120/77 95 08/27/16 02:26 80 18 114/62 99 08/27/16 02:00 79 16 114/62 95 08/27/16 01:00 81 17 111/65 95 08/27/16 00:00 83 80 18 132/77 99 08/26/16 23:56 98.7 F 08/26/16 23:00 81 19 132/77 96 08/26/16 22:00 75 15 133/76 94 08/26/16 21:53 80 139/79 08/26/16 21:05 80 15 133/77 98 08/26/16 21:00 76 14 133/77 98 08/26/16 20:19 98 08/26/16 20:00 76 74 13 131/75 97 08/26/16 19:27 98.8 F 08/26/16 19:00 75 14 131/76 97 08/26/16 18:00 73 15 135/76 96 08/26/16 17:52 70 11 L 128/71 96 08/26/16 17:00 73 17 135/75 96 08/26/16 16:12 98.1 F 08/26/16 16:02 75 12 135/73 98 08/26/16 16:00 73 13 135/73 97 08/26/16 15:58 73 12 127/64 98 08/26/16 15:50 74 11 L 127/64 98 08/26/16 15:00 72 12 135/64 98 08/26/16 14:32 76 11 L 126/66 97 08/26/16 14:00 77 15 127/65 96 08/26/16 13:00 75 11 L 126/65 95 08/26/16 12:01 72 12 134/70 96 08/26/16 12:00 98.6 F 74 14 134/70 92 08/26/16 11:40 76 12 122/71 94 08/26/16 11:00 77 13 125/67 94 08/26/16 10:30 75 12 134/75 95 08/26/16 10:00 74 15 131/74 96 Intake and Output 08/26/16 08/27/16 08/27/16 22:59 06:59 14:59 Intake Total 690 600 150 Output Total 715 350 100 Balance -25 250 50 Intake: IV 600 600 150 D5w 1,000 ml @ 75 mls/hr 600 600 150 IV DIRECT VANESSA Rx#: [id number] Oral 90 Output: Urine 715 350 100 Indwelling Catheter 715 350 100 Other: Total, Intake Amount 90 Total, Output Amount 50 30 0 Voiding Method Indwelling Catheter Indwelling Catheter - Exam Narrative Exam: pt appears jaundice this am. H & H has dropped to 01/18 this am. Will transfuse one unit of RBC's. Urine output improved and now jean carlos colored. Urine was frankly bloody two days ago. Total Bilirubin is increasing. Sono of abdomen pending. Ammonia levels pending. Pt more alert this am but still drowsy. Pt taking small amount of Jello per mouth. Breasts: Present: deferred Cardiovascular: Present: Regular rate Lungs: Present: Clear to auscultation Abdomen: Present: soft, other (, oozing from incision, small amount- blood, does not appear infected) Extremities: Present: normal Incision: Present: normal, dry, intact - Labs Labs: Abnormal lab results 08/26/16 08/26/16 08/26/16 Range/Units 10:07 14:54 17:47 WBC (4.5-11.0) K/mm3 RBC (3.65-5.03) M/mm3 Hgb (10.1-14.3) gm/dl Hct (30.3-42.9) % RDW (13.2-15.2) % Plt Count (140-440) K/mm3 Seg Neuts % (Manual) (40.0-70.0) % Lymphocytes % (Manual) (13.4-35.0) % Nucleated RBC % (0.0-0.9) % Seg Neutrophils # Man (1.8-7.7) K/mm3 Sodium (137-145) mmol/L Carbon Dioxide (22-30) mmol/L BUN (7-17) mg/dL Glucose (65-100) mg/dL POC Glucose 115 H 109 H 120 H (70-105) Calcium (8.4-10.2) mg/dL Total Bilirubin (0.1-1.2) mg/dL AST (5-40) units/L Alkaline Phosphatase (35-129) units/L Total Protein (6.3-8.2) g/dL Albumin (3.9-5) g/dL Crossmatch 08/26/16 08/26/16 08/26/16 Range/Units 20:02 21:42 23:41 WBC (4.5-11.0) K/mm3 RBC (3.65-5.03) M/mm3 Hgb (10.1-14.3) gm/dl Hct (30.3-42.9) % RDW (13.2-15.2) % Plt Count (140-440) K/mm3 Seg Neuts % (Manual) (40.0-70.0) % Lymphocytes % (Manual) (13.4-35.0) % Nucleated RBC % (0.0-0.9) % Seg Neutrophils # Man (1.8-7.7) K/mm3 Sodium (137-145) mmol/L Carbon Dioxide (22-30) mmol/L BUN (7-17) mg/dL Glucose (65-100) mg/dL POC Glucose 123 H 125 H 114 H (70-105) Calcium (8.4-10.2) mg/dL Total Bilirubin (0.1-1.2) mg/dL AST (5-40) units/L Alkaline Phosphatase (35-129) units/L Total Protein (6.3-8.2) g/dL Albumin (3.9-5) g/dL Crossmatch 08/27/16 08/27/16 08/27/16 Range/Units 01:59 04:01 05:46 WBC (4.5-11.0) K/mm3 RBC (3.65-5.03) M/mm3 Hgb (10.1-14.3) gm/dl Hct (30.3-42.9) % RDW (13.2-15.2) % Plt Count (140-440) K/mm3 Seg Neuts % (Manual) (40.0-70.0) % Lymphocytes % (Manual) (13.4-35.0) % Nucleated RBC % (0.0-0.9) % Seg Neutrophils # Man (1.8-7.7) K/mm3 Sodium (137-145) mmol/L Carbon Dioxide (22-30) mmol/L BUN (7-17) mg/dL Glucose (65-100) mg/dL POC Glucose 127 H 144 H 121 H (70-105) Calcium (8.4-10.2) mg/dL Total Bilirubin (0.1-1.2) mg/dL AST (5-40) units/L Alkaline Phosphatase (35-129) units/L Total Protein (6.3-8.2) g/dL Albumin (3.9-5) g/dL Crossmatch 08/27/16 08/27/16 08/27/16 Range/Units 06:37 06:37 08:20 WBC 16.1 H (4.5-11.0) K/mm3 RBC 2.19 L (3.65-5.03) M/mm3 Hgb 6.3 L (10.1-14.3) gm/dl Hct 19.9 L* (30.3-42.9) % RDW 16.2 H (13.2-15.2) % Plt Count 103 L (140-440) K/mm3 Seg Neuts % (Manual) 83.0 H (40.0-70.0) % Lymphocytes % (Manual) 10.0 L (13.4-35.0) % Nucleated RBC % 9.0 H (0.0-0.9) % Seg Neutrophils # Man 13.4 H (1.8-7.7) K/mm3 Sodium 133 L (137-145) mmol/L Carbon Dioxide 20 L (22-30) mmol/L BUN 31 H (7-17) mg/dL Glucose 118 H (65-100) mg/dL POC Glucose (70-105) Calcium 6.4 L (8.4-10.2) mg/dL Total Bilirubin 9.7 H (0.1-1.2) mg/dL AST 73 H (5-40) units/L Alkaline Phosphatase 215 H (35-129) units/L Total Protein 3.8 L (6.3-8.2) g/dL Albumin 1.5 L (3.9-5) g/dL Crossmatch See Detail
[2016-08-27] MEDS ORDERED: NACL 0.9% 500 ML 500 ML IV NR ×2 (09:30→21:42)
[2016-08-27] MEDS ORDERED: DULCOLAX PR PRN (09:34)
--- NOTE | 2016-08-27 09:37 | Event Note ---
Date: 08/27/16 Called this am . Torch titers not yet available.
[2016-08-27 09:39] LABS: Hematocrit 18.4 % (30.3-42.9)
--- NOTE | 2016-08-27 09:41 | Hem/Onc Consultation ---
History of Present Illness - Reason for Consult Consult date: 08/27/16 - History of Present Illness dictated Past History Past Medical History: No medical history Past Surgical History: No surgical history Social history: no significant social history, Family history: no significant family history Medications and Allergies Allergies Allergy/AdvReac Type Severity Reaction Status Date / Time No Known Allergies Allergy Verified 08/22/16 15:18 Home Medications Medication Instructions Recorded Confirmed Last Taken Type Acetaminophen [Shake That Ache] 500 mg PO Q6HR 08/22/16 08/22/16 08/22/16 09:00 History 1 Mucinex Dm ER 1,200-60 mg Tab 1 tab PO BID 08/22/16 08/22/16 08/22/16 09:00 History 1 Oseltamivir [Tamiflu] 75 mg PO BID 08/22/16 08/22/16 08/22/16 09:00 History 1 Pnv95/Ferrous Fumarate/FA 1 each PO DAILY 08/22/16 08/22/16 08/22/16 09:00 History [Prenavite Tablet] 1 Ranitidine HCl [Acid Control] 150 mg PO BID 08/22/16 08/22/16 08/22/16 09:00 History 1 Active Meds: Active Medications Acetaminophen (Tylenol) 650 mg PO Q4H PRN PRN Reason: Fever >100.5/MARCUS Acetaminophen/Hydrocodone Bitart ([place] 5/325) 1 each PO Q6H PRN PRN Reason: Pain, Moderate (4-6) Last Admin: 08/24/16 19:13 Dose: 1 each Bisacodyl (Dulcolax) 10 mg [place] QDAY PRN PRN Reason: Constipation Ferrous Sulfate (Feosol) 325 mg PO QDAY [facility] Last Admin: 08/26/16 11:22 Dose: Not Given Dextrose (D5w) 1,000 mls @ 75 mls/hr IV DIRECT [facility] Last Admin: 08/26/16 21:53 Dose: 75 mls/hr Sodium Chloride (Nacl 0.9% 500 Ml) 500 mls @ 0 mls/hr IV ONCE NR PRN Reason: As Directed Stop: 08/27/16 14:00 Ibuprofen (Motrin) 800 mg PO Q6H PRN PRN Reason: Pain, Mild (1-3) Labetalol HCl (Normodyne) 100 mg PO BID [facility] Last Admin: 08/26/16 21:53 Dose: 100 mg Morphine Sulfate (Morphine) 2 mg IV Q6HR PRN PRN Reason: Pain, Moderate (4-6) Multi-Ingredient Ointment (Lansinoh) 1 applic TP PRN PRN PRN Reason: dryness/cracking Naloxone HCl (Narcan 0.4 Mg/1 Ml) 0.1 mg IV Q2MIN PRN PRN Reason: Res Rate </= 8 or 02 SAT < 92% Last Admin: 08/23/16 04:45 Dose: 0.1 mg Ondansetron HCl (Zofran) 4 mg IV Q4H PRN PRN Reason: Nausea And Vomiting Oxycodone/Acetaminophen (Percocet 5/325) 1 tab PO Q6H PRN PRN Reason: Pain, Moderate (4-6) Oxycodone/Acetaminophen (Percocet 5/325) 2 tab PO Q6H PRN PRN Reason: Moder Pain unrelieved by [place] Witch Chloe/Glycerin (Tucks Pad) 1 each TP PRN PRN PRN Reason: Hemorrhoids/cleansing/soothing Exam - Constitutional Vitals: Last Vital Signs Temp 98.3 F 08/27/16 08:00 Pulse 80 08/27/16 09:00 Resp 15 08/27/16 09:00 BP 121/64 08/27/16 09:00 Pulse Ox 96 08/27/16 09:00 Results - Labs lab Results: Laboratory Results - last 24 hr 08/22/16 08/22/16 08/25/16 18:34 18:34 11:45 WBC RBC Hgb Hct MCV MCH MCHC RDW Plt Count Add Manual Diff Total Counted Seg Neuts % (Manual) Band Neutrophils % Lymphocytes % (Manual) Reactive Lymphs % (Man) Monocytes % (Manual) Eosinophils % (Manual) Basophils % (Manual) Metamyelocytes % Myelocytes % Promyelocytes % Blast Cells % Nucleated RBC % Seg Neutrophils # Man Band Neutrophils # Lymphocytes # (Manual) Abs React Lymphs (Man) Monocytes # (Manual) Eosinophils # (Manual) Basophils # (Manual) Metamyelocytes # Myelocytes # Promyelocytes # Blast Cells # WBC Morphology Hypersegmented Neuts Hyposegmented Neuts Hypogranular Neuts Smudge Cells Toxic Granulation Toxic Vacuolation Dohle Bodies Pelger-Huet Anomaly Alaina Rods Platelet Estimate Clumped Platelets Plt Clumps, EDTA Large Platelets Giant Platelets Platelet Satelliting Plt Morphology Comment RBC Morphology Dimorphic RBCs Polychromasia Hypochromasia Poikilocytosis Anisocytosis Microcytosis Macrocytosis Spherocytes Pappenheimer Bodies Sickle Cells Target Cells Tear Drop Cells Ovalocytes Helmet Cells [place] Bodies Jolley Rings Soumya Cells Bite Cells Crenated Cell Elliptocytes Acanthocytes (Spur) Rouleaux Hemoglobin C Crystals Schistocytes Malaria parasites Daljit Bodies Hem Pathologist Commnt Sodium Potassium Chloride Carbon Dioxide Anion Gap BUN Creatinine Estimated GFR BUN/Creatinine Ratio Glucose POC Glucose Calcium Total Bilirubin AST ALT Alkaline Phosphatase Total Protein Albumin Albumin/Globulin Ratio Herpes Simplex Source Swab HSV I DNA PCR Not detected HSV II DNA PCR Not detected Rubella IgM Antibody <0.90 Schistocytes Smear Toxoplasma IgG Ab <=0.90 Toxoplasma IgM Ab Negative Blood Type Antibody Screen Crossmatch 08/26/16 08/26/16 08/26/16 04:50 08:05 08:53 WBC RBC Hgb Hct MCV MCH MCHC RDW Plt Count Add Manual Diff Total Counted Seg Neuts % (Manual) Band Neutrophils % Lymphocytes % (Manual) Reactive Lymphs % (Man) Monocytes % (Manual) Eosinophils % (Manual) Basophils % (Manual) Metamyelocytes % Myelocytes % Promyelocytes % Blast Cells % Nucleated RBC % Seg Neutrophils # Man Band Neutrophils # Lymphocytes # (Manual) Abs React Lymphs (Man) Monocytes # (Manual) Eosinophils # (Manual) Basophils # (Manual) Metamyelocytes # Myelocytes # Promyelocytes # Blast Cells # WBC Morphology Hypersegmented Neuts Hyposegmented Neuts Hypogranular Neuts Smudge Cells Toxic Granulation Toxic Vacuolation Dohle Bodies Pelger-Huet Anomaly [place]a Rods Platelet Estimate Clumped Platelets Plt Clumps, EDTA Large Platelets Giant Platelets Platelet Satelliting Plt Morphology Comment RBC Morphology Dimorphic RBCs Polychromasia Hypochromasia Poikilocytosis Anisocytosis Microcytosis Macrocytosis Spherocytes Rare Pappenheimer Bodies Sickle Cells Target Cells Tear Drop Cells Ovalocytes Helmet Cells [place] Bodies Jolley Rings Ipava Cells Bite Cells Crenated Cell Elliptocytes Acanthocytes (Spur) Rouleaux Hemoglobin C Crystals Schistocytes Malaria parasites Daljit Bodies Hem Pathologist Commnt Sodium Potassium Chloride Carbon Dioxide Anion Gap BUN Creatinine Estimated GFR BUN/Creatinine Ratio Glucose POC Glucose 93 84 Calcium Total Bilirubin AST ALT Alkaline Phosphatase Total Protein Albumin Albumin/Globulin Ratio Herpes Simplex Source HSV I DNA PCR HSV II DNA PCR Rubella IgM Antibody Schistocytes Smear Rare Toxoplasma IgG Ab Toxoplasma IgM Ab Blood Type Antibody Screen Crossmatch 08/26/16 08/26/16 08/26/16 10:07 12:25 13:23 WBC RBC Hgb Hct MCV MCH MCHC RDW Plt Count Add Manual Diff Total Counted Seg Neuts % (Manual) Band Neutrophils % Lymphocytes % (Manual) Reactive Lymphs % (Man) Monocytes % (Manual) Eosinophils % (Manual) Basophils % (Manual) Metamyelocytes % Myelocytes % Promyelocytes % Blast Cells % Nucleated RBC % Seg Neutrophils # Man Band Neutrophils # Lymphocytes # (Manual) Abs React Lymphs (Man) Monocytes # (Manual) Eosinophils # (Manual) Basophils # (Manual) Metamyelocytes # Myelocytes # Promyelocytes # Blast Cells # WBC Morphology Hypersegmented Neuts Hyposegmented Neuts Hypogranular Neuts Smudge Cells Toxic Granulation Toxic Vacuolation Dohle Bodies Pelger-Huet Anomaly [place]a Rods Platelet Estimate Clumped Platelets Plt Clumps, EDTA Large Platelets Giant Platelets Platelet Satelliting Plt Morphology Comment RBC Morphology Dimorphic RBCs Polychromasia Hypochromasia Poikilocytosis Anisocytosis Microcytosis Macrocytosis Spherocytes Pappenheimer Bodies Sickle Cells Target Cells Tear Drop Cells Ovalocytes Helmet Cells [place] Bodies Jolley Rings Soumya Cells Bite Cells Crenated Cell Elliptocytes Acanthocytes (Spur) Rouleaux Hemoglobin C Crystals Schistocytes Malaria parasites Daljit Bodies Hem Pathologist Commnt Sodium Potassium Chloride Carbon Dioxide Anion Gap BUN Creatinine Estimated GFR BUN/Creatinine Ratio Glucose POC Glucose 115 H 93 105 Calcium Total Bilirubin AST ALT Alkaline Phosphatase Total Protein Albumin Albumin/Globulin Ratio Herpes Simplex Source HSV I DNA PCR HSV II DNA PCR Rubella IgM Antibody Schistocytes Smear Toxoplasma IgG Ab Toxoplasma IgM Ab Blood Type Antibody Screen Crossmatch 08/26/16 08/26/16 08/26/16 14:54 16:00 17:47 WBC RBC Hgb Hct MCV MCH MCHC RDW Plt Count Add Manual Diff Total Counted Seg Neuts % (Manual) Band Neutrophils % Lymphocytes % (Manual) Reactive Lymphs % (Man) Monocytes % (Manual) Eosinophils % (Manual) Basophils % (Manual) Metamyelocytes % Myelocytes % Promyelocytes % Blast Cells % Nucleated RBC % Seg Neutrophils # Man Band Neutrophils # Lymphocytes # (Manual) Abs React Lymphs (Man) Monocytes # (Manual) Eosinophils # (Manual) Basophils # (Manual) Metamyelocytes # Myelocytes # Promyelocytes # Blast Cells # WBC Morphology Hypersegmented Neuts Hyposegmented Neuts Hypogranular Neuts Smudge Cells Toxic Granulation Toxic Vacuolation Dohle Bodies Pelger-Huet Anomaly Al[place]a Rods Platelet Estimate Clumped Platelets Plt Clumps, EDTA Large Platelets Giant Platelets Platelet Satelliting Plt Morphology Comment RBC Morphology Dimorphic RBCs Polychromasia Hypochromasia Poikilocytosis Anisocytosis Microcytosis Macrocytosis Spherocytes Pappenheimer Bodies Sickle Cells Target Cells Tear Drop Cells Ovalocytes Helmet Cells [place] Bodies Jolley Rings Soumya Cells Bite Cells Crenated Cell Elliptocytes Acanthocytes (Spur) Rouleaux Hemoglobin C Crystals Schistocytes Malaria parasites Daljit Bodies Hem Pathologist Commnt Sodium Potassium Chloride Carbon Dioxide Anion Gap BUN Creatinine Estimated GFR BUN/Creatinine Ratio Glucose POC Glucose 109 H 99 120 H Calcium Total Bilirubin AST ALT Alkaline Phosphatase Total Protein Albumin Albumin/Globulin Ratio Herpes Simplex Source HSV I DNA PCR HSV II DNA PCR Rubella IgM Antibody Schistocytes Smear Toxoplasma IgG Ab Toxoplasma IgM Ab Blood Type Antibody Screen Crossmatch 08/26/16 08/26/16 08/26/16 20:02 21:42 23:41 WBC RBC Hgb Hct MCV MCH MCHC RDW Plt Count Add Manual Diff Total Counted Seg Neuts % (Manual) Band Neutrophils % Lymphocytes % (Manual) Reactive Lymphs % (Man) Monocytes % (Manual) Eosinophils % (Manual) Basophils % (Manual) Metamyelocytes % Myelocytes % Promyelocytes % Blast Cells % Nucleated RBC % Seg Neutrophils # Man Band Neutrophils # Lymphocytes # (Manual) Abs React Lymphs (Man) Monocytes # (Manual) Eosinophils # (Manual) Basophils # (Manual) Metamyelocytes # Myelocytes # Promyelocytes # Blast Cells # WBC Morphology Hypersegmented Neuts Hyposegmented Neuts Hypogranular Neuts Smudge Cells Toxic Granulation Toxic Vacuolation Dohle Bodies Pelger-Huet Anomaly Al[place]a Rods Platelet Estimate Clumped Platelets Plt Clumps, EDTA Large Platelets Giant Platelets Platelet Satelliting Plt Morphology Comment RBC Morphology Dimorphic RBCs Polychromasia Hypochromasia Poikilocytosis Anisocytosis Microcytosis Macrocytosis Spherocytes Pappenheimer Bodies Sickle Cells Target Cells Tear Drop Cells Ovalocytes Helmet Cells [place] Bodies Jolley Rings Ipava Cells Bite Cells Crenated Cell Elliptocytes Acanthocytes (Spur) Rouleaux Hemoglobin C Crystals Schistocytes Malaria parasites Daljit Bodies Hem Pathologist Commnt Sodium Potassium Chloride Carbon Dioxide Anion Gap BUN Creatinine Estimated GFR BUN/Creatinine Ratio Glucose POC Glucose 123 H 125 H 114 H Calcium Total Bilirubin AST ALT Alkaline Phosphatase Total Protein Albumin Albumin/Globulin Ratio Herpes Simplex Source HSV I DNA PCR HSV II DNA PCR Rubella IgM Antibody Schistocytes Smear Toxoplasma IgG Ab Toxoplasma IgM Ab Blood Type Antibody Screen Crossmatch 08/27/16 08/27/16 08/27/16 01:59 04:01 05:46 WBC RBC Hgb Hct MCV MCH MCHC RDW Plt Count Add Manual Diff Total Counted Seg Neuts % (Manual) Band Neutrophils % Lymphocytes % (Manual) Reactive Lymphs % (Man) Monocytes % (Manual) Eosinophils % (Manual) Basophils % (Manual) Metamyelocytes % Myelocytes % Promyelocytes % Blast Cells % Nucleated RBC % Seg Neutrophils # Man Band Neutrophils # Lymphocytes # (Manual) Abs React Lymphs (Man) Monocytes # (Manual) Eosinophils # (Manual) Basophils # (Manual) Metamyelocytes # Myelocytes # Promyelocytes # Blast Cells # WBC Morphology Hypersegmented Neuts Hyposegmented Neuts Hypogranular Neuts Smudge Cells Toxic Granulation Toxic Vacuolation Dohle Bodies Pelger-Huet Anomaly [place]a Rods Platelet Estimate Clumped Platelets Plt Clumps, EDTA Large Platelets Giant Platelets Platelet Satelliting Plt Morphology Comment RBC Morphology Dimorphic RBCs Polychromasia Hypochromasia Poikilocytosis Anisocytosis Microcytosis Macrocytosis Spherocytes Pappenheimer Bodies Sickle Cells Target Cells Tear Drop Cells Ovalocytes Helmet Cells [place] Bodies Jolley Rings Ipava Cells Bite Cells Crenated Cell Elliptocytes Acanthocytes (Spur) Rouleaux Hemoglobin C Crystals Schistocytes Malaria parasites Daljit Bodies Hem Pathologist Commnt Sodium Potassium Chloride Carbon Dioxide Anion Gap BUN Creatinine Estimated GFR BUN/Creatinine Ratio Glucose POC Glucose 127 H 144 H 121 H Calcium Total Bilirubin AST ALT Alkaline Phosphatase Total Protein Albumin Albumin/Globulin Ratio Herpes Simplex Source HSV I DNA PCR HSV II DNA PCR Rubella IgM Antibody Schistocytes Smear Toxoplasma IgG Ab Toxoplasma IgM Ab Blood Type Antibody Screen Crossmatch 08/27/16 08/27/16 08/27/16 06:37 06:37 08:20 WBC 16.1 H RBC 2.19 L Hgb 6.3 L Hct 19.9 L* MCV 91 MCH 29 MCHC 32 RDW 16.2 H Plt Count 103 L Add Manual Diff Complete Total Counted 100 Seg Neuts % (Manual) 83.0 H Band Neutrophils % 5.0 Lymphocytes % (Manual) 10.0 L Reactive Lymphs % (Man) 0 Monocytes % (Manual) 2.0 Eosinophils % (Manual) 0 Basophils % (Manual) 0 Metamyelocytes % 0 Myelocytes % 0 Promyelocytes % 0 Blast Cells % 0 Nucleated RBC % 9.0 H Seg Neutrophils # Man 13.4 H Band Neutrophils # 0.8 Lymphocytes # (Manual) 1.6 Abs React Lymphs (Man) 0.0 Monocytes # (Manual) 0.3 Eosinophils # (Manual) 0.0 Basophils # (Manual) 0.0 Metamyelocytes # 0.0 Myelocytes # 0.0 Promyelocytes # 0.0 Blast Cells # 0.0 WBC Morphology Not Reportable Hypersegmented Neuts Not Reportable Hyposegmented Neuts Not Reportable Hypogranular Neuts Not Reportable Smudge Cells Not Reportable Toxic Granulation Not Reportable Toxic Vacuolation Not Reportable Dohle Bodies Not Reportable Pelger-Huet Anomaly Not Reportable Alaina Rods Not Reportable Platelet Estimate Not Reportable Clumped Platelets Not Reportable Plt Clumps, EDTA Not Reportable Large Platelets Not Reportable Giant Platelets Not Reportable Platelet Satelliting Not Reportable Plt Morphology Comment Not Reportable RBC Morphology Not Reportable Dimorphic RBCs Not Reportable Polychromasia 1+ Hypochromasia Not Reportable Poikilocytosis Not Reportable Anisocytosis 1+ Microcytosis Not Reportable Macrocytosis Not Reportable Spherocytes Not Reportable Pappenheimer Bodies Not Reportable Sickle Cells Not Reportable Target Cells Not Reportable Tear Drop Cells Not Reportable Ovalocytes Not Reportable Helmet Cells Not Reportable Whittaker-[place] Bodies Not Reportable Jolley Rings Not Reportable Ipava Cells Rare Bite Cells Not Reportable Crenated Cell Not Reportable Elliptocytes Not Reportable Acanthocytes (Spur) Not Reportable Rouleaux Not Reportable Hemoglobin C Crystals Not Reportable Schistocytes Rare Malaria parasites Not Reportable Daljit Bodies Not Reportable Hem Pathologist Commnt No Sodium 133 L Potassium 4.1 Chloride 101.8 Carbon Dioxide 20 L Anion Gap 15 BUN 31 H Creatinine 1.1 Estimated GFR 55 BUN/Creatinine Ratio 28.18 Glucose 118 H POC Glucose Calcium 6.4 L Total Bilirubin 9.7 H AST 73 H ALT 41 Alkaline Phosphatase 215 H Total Protein 3.8 L Albumin 1.5 L Albumin/Globulin Ratio 0.7 Herpes Simplex Source HSV I DNA PCR HSV II DNA PCR Rubella IgM Antibody Schistocytes Smear Toxoplasma IgG Ab Toxoplasma IgM Ab Blood Type O NEGATIVE Antibody Screen Positive Crossmatch See Detail 08/27/16 08:40 WBC RBC Hgb 6.1 L Hct 18.4 L* MCV MCH MCHC RDW Plt Count Add Manual Diff Total Counted Seg Neuts % (Manual) Band Neutrophils % Lymphocytes % (Manual) Reactive Lymphs % (Man) Monocytes % (Manual) Eosinophils % (Manual) Basophils % (Manual) Metamyelocytes % Myelocytes % Promyelocytes % Blast Cells % Nucleated RBC % Seg Neutrophils # Man Band Neutrophils # Lymphocytes # (Manual) Abs React Lymphs (Man) Monocytes # (Manual) Eosinophils # (Manual) Basophils # (Manual) Metamyelocytes # Myelocytes # Promyelocytes # Blast Cells # WBC Morphology Hypersegmented Neuts Hyposegmented Neuts Hypogranular Neuts Smudge Cells Toxic Granulation Toxic Vacuolation Dohle Bodies Pelger-Huet Anomaly [place]a Rods Platelet Estimate Clumped Platelets Plt Clumps, EDTA Large Platelets Giant Platelets Platelet Satelliting Plt Morphology Comment RBC Morphology Dimorphic RBCs Polychromasia Hypochromasia Poikilocytosis Anisocytosis Microcytosis Macrocytosis Spherocytes Pappenheimer Bodies Sickle Cells Target Cells Tear Drop Cells Ovalocytes Helmet Cells [place]aker-[place] Bodies Jolley Rings [place]a Cells Bite Cells Crenated Cell Elliptocytes Acanthocytes (Spur) Rouleaux Hemoglobin C Crystals Schistocytes Malaria parasites Daljit Bodies Hem Pathologist Commnt Sodium Potassium Chloride Carbon Dioxide Anion Gap BUN Creatinine Estimated GFR BUN/Creatinine Ratio Glucose POC Glucose Calcium Total Bilirubin AST ALT Alkaline Phosphatase Total Protein Albumin Albumin/Globulin Ratio Herpes Simplex Source HSV I DNA PCR HSV II DNA PCR Rubella IgM Antibody Schistocytes Smear Toxoplasma IgG Ab Toxoplasma IgM Ab Blood Type Antibody Screen Crossmatch
--- NOTE | 2016-08-27 10:33 | Progress Note ---
Assessment and Plan HELLP syndrome, suspected, status post Hypotension, resolved . Anemia. Cause still to be determined. Hematology oncology evaluated the patient also Hypoglycemia: IV dextrose. Still no able to eat due to some concerns about her neurological status. Abnormal liver enzymes. Liver profile improved but now with direct hyperbilirubinemia and jaundice Renal failure. Improving but still abnormal Leukocytosis. thrombocytopenia. No bleeding reported Metabolic encephalopathy. Recommendations, Serum ammonia levels Hepatitis profile. Reportedly she was hepatitis B- on her [employer] visits, per obstetrics Abdominal ultrasound Hematology and oncology consult Transfuse 1 unit PRBC and recheck H&H Discussed with family. Critical care time was 40 minutes in patient evaluation [id number] coordination of care. Subjective Date of service: 08/27/16 Principal diagnosis: HELLP syndrome- resolving, status post Interval history: Sleepy. Reportedly no shortness of breath Objective Vital Signs - 12hr 08/26/16 08/26/16 08/27/16 23:00 23:56 00:00 Temperature 98.7 F Pulse Rate 81 83 Pulse Rate [ 80 From Monitor] Respiratory 19 18 Rate Blood Pressure 132/77 132/77 O2 Sat by Pulse 96 99 Oximetry 08/27/16 08/27/16 08/27/16 01:00 02:00 02:26 Temperature Pulse Rate 81 79 80 Pulse Rate [ From Monitor] Respiratory 17 16 18 Rate Blood Pressure 111/65 114/62 114/62 O2 Sat by Pulse 95 95 99 Oximetry 08/27/16 08/27/16 08/27/16 03:00 04:00 04:58 Temperature 98.9 F Pulse Rate 84 81 83 Pulse Rate [ 81 From Monitor] Respiratory 18 20 16 Rate Blood Pressure 120/77 119/64 119/54 O2 Sat by Pulse 95 91 97 Oximetry 08/27/16 08/27/16 08/27/16 05:00 06:00 06:42 Temperature Pulse Rate 84 84 86 Pulse Rate [ From Monitor] Respiratory 16 17 19 Rate Blood Pressure 108/54 123/68 116/69 O2 Sat by Pulse 97 95 97 Oximetry 08/27/16 08/27/16 08/27/16 07:00 08:00 08:42 Temperature 98.3 F Pulse Rate 84 86 Pulse Rate [ 73 From Monitor] Respiratory 17 22 Rate Blood Pressure 117/71 135/74 O2 Sat by Pulse 93 93 98 Oximetry 08/27/16 09:00 Temperature Pulse Rate 80 Pulse Rate [ From Monitor] Respiratory 15 Rate Blood Pressure 121/64 O2 Sat by Pulse 96 Oximetry Constitutional: no acute distress, asleep, other (sleepy, easily arousable and able to answer questions) Eyes: non-icteric ENT: oropharynx moist Neck: supple Ascultation: Bilateral: clear Cardiovascular: regular rate and rhythm Gastrointestinal: normoactive bowel sounds, non-distended Integumentary: normal Extremities: no cyanosis, no cyanosis, no cyanosis Neurologic: non-focal exam, pupils equal and round, CN [id number] normal CBC and BMP: 08/27/16 08:40 08/27/16 06:37 ABG, PT/INR, D-dimer: ABG POC ABG pH 7.479 (7.35-7.45) H 08/24/16 14:12 POC ABG pCO2 29.6 (35-45) L 08/24/16 14:12 POC ABG pO2 62 (80-105) L 08/24/16 14:12 POC ABG HCO3 21.9 08/24/16 14:12 POC ABG Total CO2 23 08/24/16 14:12 POC ABG O2 Sat 93 08/24/16 14:12 PT/INR, D-dimer PT 20.0 Sec. (12.2-14.9) H 08/25/16 05:45 INR 1.70 (0.87-1.13) H 08/25/16 05:45 Abnormal lab findings: Abnormal Labs 08/22/16 08/22/16 08/22/16 16:00 16:00 17:38 WBC RBC 3.64 L Hgb Hct RDW Plt Count 137 L Lymph % (Auto) 12.3 L [place] # Seg Neutrophils % 81.9 H Seg Neuts % (Manual) Lymphocytes % (Manual) Nucleated RBC % Seg Neutrophils # 8.3 H Seg Neutrophils # Man PT INR APTT POC ABG pH 7.117 L POC ABG pCO2 49.2 H POC ABG pO2 20 L Sodium Potassium Chloride Carbon Dioxide BUN Creatinine Glucose POC Glucose Lactic Acid Calcium Magnesium Total Bilirubin Direct Bilirubin AST ALT Alkaline Phosphatase Ammonia Lactate Dehydrogenase Total Creatine Kinase Total Protein Albumin LDL Cholesterol Direct Crossmatch See Detail 08/22/16 08/22/16 08/23/16 17:43 18:48 05:19 WBC 13.2 H 17.0 H RBC 3.62 L 3.16 L Hgb 9.9 L Hct RDW Plt Count 115 L 125 L Lymph % (Auto) 8.8 L [place] # 1.1 H Seg Neutrophils % 87.0 H 77.2 H Seg Neuts % (Manual) Lymphocytes % (Manual) Nucleated RBC % Seg Neutrophils # 11.5 H 13.1 H Seg Neutrophils # Man PT INR APTT POC ABG pH 7.078 L POC ABG pCO2 POC ABG pO2 25 L Sodium Potassium Chloride Carbon Dioxide BUN Creatinine Glucose POC Glucose Lactic Acid Calcium Magnesium Total Bilirubin Direct Bilirubin AST ALT Alkaline Phosphatase Ammonia Lactate Dehydrogenase Total Creatine Kinase Total Protein Albumin LDL Cholesterol Direct Crossmatch 08/23/16 08/23/16 08/23/16 07:50 07:50 08:19 WBC RBC Hgb 9.7 L Hct 30.0 L RDW Plt Count Lymph % (Auto) [place] # Seg Neutrophils % Seg Neuts % (Manual) Lymphocytes % (Manual) Nucleated RBC % Seg Neutrophils # Seg Neutrophils # Man PT 23.7 H INR 2.11 H APTT POC ABG pH POC ABG pCO2 POC ABG pO2 Sodium Potassium 5.9 H Chloride Carbon Dioxide 12 L BUN 18 H Creatinine 3.1 H Glucose 39 L* POC Glucose Lactic Acid Calcium Magnesium Total Bilirubin 4.3 H Direct Bilirubin 3.9 H AST 676 H ALT 470 H Alkaline Phosphatase 394 H Ammonia Lactate Dehydrogenase Total Creatine Kinase Total Protein 4.3 L Albumin 1.6 L LDL Cholesterol Direct 38 L Crossmatch 08/23/16 08/23/16 08/23/16 08:39 09:00 09:25 WBC RBC Hgb Hct RDW Plt Count Lymph % (Auto) [place] # Seg Neutrophils % Seg Neuts % (Manual) Lymphocytes % (Manual) Nucleated RBC % Seg Neutrophils # Seg Neutrophils # Man PT INR APTT POC ABG pH POC ABG pCO2 POC ABG pO2 Sodium Potassium Chloride Carbon Dioxide BUN Creatinine Glucose POC Glucose 52 L 178 H Lactic Acid 10.0 H* Calcium Magnesium Total Bilirubin Direct Bilirubin AST ALT Alkaline Phosphatase Ammonia Lactate Dehydrogenase Total Creatine Kinase Total Protein Albumin LDL Cholesterol Direct Crossmatch 08/23/16 08/23/16 08/23/16 11:05 12:02 12:26 WBC RBC Hgb Hct RDW Plt Count Lymph % (Auto) [place] # Seg Neutrophils % Seg Neuts % (Manual) Lymphocytes % (Manual) Nucleated RBC % Seg Neutrophils # Seg Neutrophils # Man PT INR APTT POC ABG pH POC ABG pCO2 POC ABG pO2 Sodium Potassium 5.5 H Chloride Carbon Dioxide 13 L BUN 19 H Creatinine 3.1 H Glucose 124 H POC Glucose 134 H 130 H Lactic Acid Calcium 8.3 L Magnesium Total Bilirubin 4.4 H Direct Bilirubin AST 521 H ALT 377 H Alkaline Phosphatase 345 H Ammonia Lactate Dehydrogenase Total Creatine Kinase Total Protein 4.6 L Albumin 1.9 L LDL Cholesterol Direct Crossmatch 08/23/16 08/23/16 08/23/16 12:49 15:30 15:30 WBC RBC Hgb Hct RDW Plt Count Lymph % (Auto) [place] # Seg Neutrophils % Seg Neuts % (Manual) Lymphocytes % (Manual) Nucleated RBC % Seg Neutrophils # Seg Neutrophils # Man PT 21.4 H INR 1.86 H APTT POC ABG pH POC ABG pCO2 POC ABG pO2 Sodium Potassium 5.1 H Chloride Carbon Dioxide BUN Creatinine Glucose POC Glucose 145 H Lactic Acid Calcium Magnesium Total Bilirubin Direct Bilirubin AST ALT Alkaline Phosphatase Ammonia Lactate Dehydrogenase 511 H Total Creatine Kinase Total Protein Albumin LDL Cholesterol Direct Crossmatch 08/23/16 08/23/16 08/23/16 15:30 15:30 15:56 WBC RBC Hgb Hct RDW Plt Count Lymph % (Auto) [place] # Seg Neutrophils % Seg Neuts % (Manual) Lymphocytes % (Manual) Nucleated RBC % Seg Neutrophils # Seg Neutrophils # Prince PT INR APTT POC ABG pH POC ABG pCO2 POC ABG pO2 Sodium Potassium Chloride Carbon Dioxide BUN Creatinine Glucose POC Glucose 138 H Lactic Acid 7.1 H* Calcium Magnesium Total Bilirubin Direct Bilirubin AST ALT Alkaline Phosphatase Ammonia Lactate Dehydrogenase Total Creatine Kinase 1275 H Total Protein Albumin LDL Cholesterol Direct Crossmatch 08/23/16 08/23/16 08/23/16 16:19 17:30 18:02 WBC RBC Hgb Hct RDW Plt Count Lymph % (Auto) [place] # Seg Neutrophils % Seg Neuts % (Manual) Lymphocytes % (Manual) Nucleated RBC % Seg Neutrophils # Seg Neutrophils # Man PT INR APTT POC ABG pH 7.288 L POC ABG pCO2 28.5 L POC ABG pO2 66 L Sodium Potassium Chloride Carbon Dioxide BUN Creatinine Glucose POC Glucose 109 H 123 H Lactic Acid Calcium Magnesium Total Bilirubin Direct Bilirubin AST ALT Alkaline Phosphatase Ammonia Lactate Dehydrogenase Total Creatine Kinase Total Protein Albumin LDL Cholesterol Direct Crossmatch 08/23/16 08/23/16 08/23/16 20:05 20:23 21:50 WBC RBC Hgb Hct RDW Plt Count Lymph % (Auto) [place] # Seg Neutrophils % Seg Neuts % (Manual) Lymphocytes % (Manual) Nucleated RBC % Seg Neutrophils # Seg Neutrophils # Prince PT 22.5 H INR 1.98 H APTT POC ABG pH POC ABG pCO2 POC ABG pO2 Sodium Potassium Chloride Carbon Dioxide 15 L BUN 19 H Creatinine 2.9 H Glucose 117 H POC Glucose 129 H Lactic Acid Calcium 7.3 L Magnesium Total Bilirubin 4.9 H Direct Bilirubin AST 369 H ALT 258 H Alkaline Phosphatase 291 H Ammonia Lactate Dehydrogenase Total Creatine Kinase Total Protein 4.3 L Albumin 1.7 L LDL Cholesterol Direct Crossmatch 08/23/16 08/23/16 08/23/16 21:50 21:50 22:16 WBC RBC Hgb Hct RDW Plt Count Lymph % (Auto) [place] # Seg Neutrophils % Seg Neuts % (Manual) Lymphocytes % (Manual) Nucleated RBC % Seg Neutrophils # Seg Neutrophils # Prince PT INR APTT POC ABG pH POC ABG pCO2 POC ABG pO2 Sodium Potassium Chloride Carbon Dioxide BUN Creatinine Glucose POC Glucose 134 H Lactic Acid 4.6 H* Calcium Magnesium Total Bilirubin Direct Bilirubin AST ALT Alkaline Phosphatase Ammonia Lactate Dehydrogenase Total Creatine Kinase 1410 H Total Protein Albumin LDL Cholesterol Direct Crossmatch 08/24/16 08/24/16 08/24/16 00:13 01:47 02:37 WBC RBC Hgb Hct RDW Plt Count Lymph % (Auto) [place] # Seg Neutrophils % Seg Neuts % (Manual) Lymphocytes % (Manual) Nucleated RBC % Seg Neutrophils # Seg Neutrophils # Prince PT INR APTT POC ABG pH POC ABG pCO2 POC ABG pO2 Sodium Potassium Chloride Carbon Dioxide BUN Creatinine Glucose POC Glucose 120 H 116 H 107 H Lactic Acid Calcium Magnesium Total Bilirubin Direct Bilirubin AST ALT Alkaline Phosphatase Ammonia Lactate Dehydrogenase Total Creatine Kinase Total Protein Albumin LDL Cholesterol Direct Crossmatch 08/24/16 08/24/16 08/24/16 03:25 04:10 05:00 WBC 12.7 H RBC 2.18 L Hgb 6.7 L D Hct 20.4 L D RDW Plt Count 102 L Lymph % (Auto) [place] # Seg Neutrophils % Seg Neuts % (Manual) Lymphocytes % (Manual) Nucleated RBC % Seg Neutrophils # Seg Neutrophils # Man PT INR APTT POC ABG pH POC ABG pCO2 POC ABG pO2 Sodium Potassium Chloride Carbon Dioxide BUN Creatinine Glucose POC Glucose 108 H 114 H Lactic Acid Calcium Magnesium Total Bilirubin Direct Bilirubin AST ALT Alkaline Phosphatase Ammonia Lactate Dehydrogenase Total Creatine Kinase Total Protein Albumin LDL Cholesterol Direct Crossmatch 08/24/16 08/24/16 08/24/16 05:00 05:00 05:00 WBC RBC Hgb Hct RDW Plt Count Lymph % (Auto) [place] # Seg Neutrophils % Seg Neuts % (Manual) Lymphocytes % (Manual) Nucleated RBC % Seg Neutrophils # Seg Neutrophils # Prince PT 22.1 H INR 1.93 H APTT POC ABG pH POC ABG pCO2 POC ABG pO2 Sodium Potassium Chloride 108.0 H Carbon Dioxide 19 L BUN 21 H Creatinine 2.7 H Glucose POC Glucose Lactic Acid 3.0 H* Calcium 6.8 L Magnesium Total Bilirubin 4.6 H Direct Bilirubin AST 303 H ALT 204 H Alkaline Phosphatase 280 H Ammonia Lactate Dehydrogenase Total Creatine Kinase 1295 H Total Protein 4.1 L Albumin 1.6 L LDL Cholesterol Direct Crossmatch 08/24/16 08/24/16 08/24/16 14:12 14:30 17:45 WBC RBC Hgb Hct RDW Plt Count Lymph % (Auto) [place] # Seg Neutrophils % Seg Neuts % (Manual) Lymphocytes % (Manual) Nucleated RBC % Seg Neutrophils # Seg Neutrophils # Prince PT INR APTT POC ABG pH 7.479 H POC ABG pCO2 29.6 L POC ABG pO2 62 L Sodium Potassium Chloride Carbon Dioxide BUN Creatinine Glucose POC Glucose Lactic Acid Calcium Magnesium 4.7 H Total Bilirubin Direct Bilirubin AST ALT Alkaline Phosphatase Ammonia 61.0 H Lactate Dehydrogenase Total Creatine Kinase Total Protein Albumin LDL Cholesterol Direct Crossmatch 08/24/16 08/25/16 08/25/16 23:30 00:55 02:14 WBC RBC Hgb Hct RDW Plt Count Lymph % (Auto) [place] # Seg Neutrophils % Seg Neuts % (Manual) Lymphocytes % (Manual) Nucleated RBC % Seg Neutrophils # Seg Neutrophils # Prince PT INR APTT POC ABG pH POC ABG pCO2 POC ABG pO2 Sodium Potassium Chloride Carbon Dioxide BUN Creatinine Glucose POC Glucose 108 H 106 H Lactic Acid Calcium Magnesium 6.7 H Total Bilirubin Direct Bilirubin AST ALT Alkaline Phosphatase Ammonia Lactate Dehydrogenase Total Creatine Kinase Total Protein Albumin LDL Cholesterol Direct Crossmatch 08/25/16 08/25/1617 05:45 05:45 05:45 WBC 19.1 H RBC 3.24 L Hgb 9.7 L D Hct 29.1 L D RDW 16.1 H Plt Count 112 L Lymph % (Auto) [place] # Seg Neutrophils % Seg Neuts % (Manual) Lymphocytes % (Manual) Nucleated RBC % Seg Neutrophils # Seg Neutrophils # Man PT 20.0 H INR 1.70 H APTT 42.3 H POC ABG pH POC ABG pCO2 POC ABG pO2 Sodium Potassium Chloride Carbon Dioxide BUN Creatinine Glucose POC Glucose Lactic Acid Calcium Magnesium 7.2 H Total Bilirubin Direct Bilirubin AST ALT Alkaline Phosphatase Ammonia Lactate Dehydrogenase Total Creatine Kinase Total Protein Albumin LDL Cholesterol Direct Crossmatch 08/25/16 08/25/16 08/25/16 05:45 12:24 12:40 WBC 19.4 H RBC 3.22 L Hgb 9.5 L Hct 28.6 L RDW 16.5 H Plt Count 106 L Lymph % (Auto) [place] # Seg Neutrophils % Seg Neuts % (Manual) 76.0 H Lymphocytes % (Manual) 8.0 L Nucleated RBC % 7.0 H Seg Neutrophils # Seg Neutrophils # Man 14.7 H PT INR APTT POC ABG pH POC ABG pCO2 POC ABG pO2 Sodium 136 L Potassium Chloride Carbon Dioxide BUN 31 H Creatinine 2.9 H Glucose POC Glucose Lactic Acid Calcium 6.7 L Magnesium 6.5 H Total Bilirubin 5.7 H Direct Bilirubin AST 194 H ALT 119 H Alkaline Phosphatase 299 H Ammonia Lactate Dehydrogenase Total Creatine Kinase Total Protein 4.4 L Albumin 1.7 L LDL Cholesterol Direct Crossmatch 08/25/16 08/25/16 08/25/16 17:53 19:56 23:18 WBC RBC Hgb Hct RDW Plt Count Lymph % (Auto) [place] # Seg Neutrophils % Seg Neuts % (Manual) Lymphocytes % (Manual) Nucleated RBC % Seg Neutrophils # Seg Neutrophils # Man PT INR APTT POC ABG pH POC ABG pCO2 POC ABG pO2 Sodium Potassium Chloride Carbon Dioxide BUN Creatinine Glucose POC Glucose 107 H Lactic Acid Calcium Magnesium 5.9 H 5.2 H Total Bilirubin Direct Bilirubin AST ALT Alkaline Phosphatase Ammonia Lactate Dehydrogenase Total Creatine Kinase Total Protein Albumin LDL Cholesterol Direct Crossmatch 08/26/16 08/26/16 08/26/16 04:50 04:50 08:26 WBC 19.1 H RBC 2.73 L Hgb 8.2 L Hct 24.4 L RDW 16.1 H Plt Count 95 L Lymph % (Auto) [place] # Seg Neutrophils % Seg Neuts % (Manual) 86.0 H Lymphocytes % (Manual) 9.0 L Nucleated RBC % 10.0 H Seg Neutrophils # Seg Neutrophils # [place] 16.4 H PT INR APTT POC ABG pH POC ABG pCO2 POC ABG pO2 Sodium 136 L Potassium Chloride Carbon Dioxide BUN 33 H Creatinine 2.0 H Glucose POC Glucose Lactic Acid Calcium 6.3 L Magnesium 4.5 H Total Bilirubin 7.6 H Direct Bilirubin 6.6 H AST 112 H ALT 63 H Alkaline Phosphatase 253 H Ammonia Lactate Dehydrogenase Total Creatine Kinase Total Protein 4.1 L Albumin 1.6 L LDL Cholesterol Direct Crossmatch 08/26/16 08/26/16 08/26/16 10:07 14:54 17:47 WBC RBC Hgb Hct RDW Plt Count Lymph % (Auto) [place] # Seg Neutrophils % Seg Neuts % (Manual) Lymphocytes % (Manual) Nucleated RBC % Seg Neutrophils # Seg Neutrophils # Prince PT INR APTT POC ABG pH POC ABG pCO2 POC ABG pO2 Sodium Potassium Chloride Carbon Dioxide BUN Creatinine Glucose POC Glucose 115 H 109 H 120 H Lactic Acid Calcium Magnesium Total Bilirubin Direct Bilirubin AST ALT Alkaline Phosphatase Ammonia Lactate Dehydrogenase Total Creatine Kinase Total Protein Albumin LDL Cholesterol Direct Crossmatch 08/26/16 08/26/16 08/26/16 20:02 21:42 23:41 WBC RBC Hgb Hct RDW Plt Count Lymph % (Auto) [place] # Seg Neutrophils % Seg Neuts % (Manual) Lymphocytes % (Manual) Nucleated RBC % Seg Neutrophils # Seg Neutrophils # Prince PT INR APTT POC ABG pH POC ABG pCO2 POC ABG pO2 Sodium Potassium Chloride Carbon Dioxide BUN Creatinine Glucose POC Glucose 123 H 125 H 114 H Lactic Acid Calcium Magnesium Total Bilirubin Direct Bilirubin AST ALT Alkaline Phosphatase Ammonia Lactate Dehydrogenase Total Creatine Kinase Total Protein Albumin LDL Cholesterol Direct Crossmatch 08/27/16 08/27/16 08/27/16 01:59 04:01 05:46 WBC RBC Hgb Hct RDW Plt Count Lymph % (Auto) [place] # Seg Neutrophils % Seg Neuts % (Manual) Lymphocytes % (Manual) Nucleated RBC % Seg Neutrophils # Seg Neutrophils # Prince PT INR APTT POC ABG pH POC ABG pCO2 POC ABG pO2 Sodium Potassium Chloride Carbon Dioxide BUN Creatinine Glucose POC Glucose 127 H 144 H 121 H Lactic Acid Calcium Magnesium Total Bilirubin Direct Bilirubin AST ALT Alkaline Phosphatase Ammonia Lactate Dehydrogenase Total Creatine Kinase Total Protein Albumin LDL Cholesterol Direct Crossmatch 08/27/16 08/27/16 08/27/16 06:37 06:37 08:20 WBC 16.1 H RBC 2.19 L Hgb 6.3 L Hct 19.9 L* RDW 16.2 H Plt Count 103 L Lymph % (Auto) [place] # Seg Neutrophils % Seg Neuts % (Manual) 83.0 H Lymphocytes % (Manual) 10.0 L Nucleated RBC % 9.0 H Seg Neutrophils # Seg Neutrophils # Man 13.4 H PT INR APTT POC ABG pH POC ABG pCO2 POC ABG pO2 Sodium 133 L Potassium Chloride Carbon Dioxide 20 L BUN 31 H Creatinine Glucose 118 H POC Glucose Lactic Acid Calcium 6.4 L Magnesium Total Bilirubin 9.7 H Direct Bilirubin AST 73 H ALT Alkaline Phosphatase 215 H Ammonia Lactate Dehydrogenase Total Creatine Kinase Total Protein 3.8 L Albumin 1.5 L LDL Cholesterol Direct Crossmatch See Detail 08/27/16 08/27/16 08:40 08:40 WBC RBC Hgb 6.1 L Hct 18.4 L* RDW Plt Count Lymph % (Auto) [place] # Seg Neutrophils % Seg Neuts % (Manual) Lymphocytes % (Manual) Nucleated RBC % Seg Neutrophils # Seg Neutrophils # Man PT INR APTT POC ABG pH POC ABG pCO2 POC ABG pO2 Sodium Potassium Chloride Carbon Dioxide BUN Creatinine Glucose POC Glucose Lactic Acid Calcium Magnesium Total Bilirubin Direct Bilirubin AST ALT Alkaline Phosphatase Ammonia Lactate Dehydrogenase 844 H Total Creatine Kinase Total Protein Albumin LDL Cholesterol Direct Crossmatch
[2016-08-27 11:35] LABS: Reticulocyte % 6.59 % (0.78-2.58)
[2016-08-27 11:44] LABS: INR 1.41 (0.87-1.13)
[2016-08-27] MEDS: NORMODYNE PO SCH (11:44)
[2016-08-27] MEDS: D5W 1,000 ML IV SCH (11:45)
[2016-08-27 16:35] LABS: Bilirubin,Urine MOD (Negative); Blood,Urine MOD (Negative); Granular Casts,Urine 4 /LPF; Ketones,Urine NEG (Negative); Leukocyte Esterase,Urine NEG (Negative); Mucus,Urine FEW /HPF; Nitrite,Urine NEG (Negative)
--- NOTE | 2016-08-27 16:40 | Progress Note ---
Assessment and Plan Pulmonary infiltrates after related to single blood transfusion. The patient also had vomiting episodes respirations are consideration vs transfusion associated lung injury (TRALI)/transfusion associated cardiac overload (TRACO). No symptoms at this time no fever and oximetry appears to be still in normal range. HELLP syndrome, suspected, status post Hypotension, resolved . Anemia. Cause still to be determined. Hypoglycemia: IV dextrose. Still no able to eat due to some concerns about her neurological status. Abnormal liver enzymes / hyperbilirubinemia and jaundice Renal failure. Improving but still abnormal Leukocytosis. Thrombocytopenia. No bleeding reported Metabolic encephalopathy. Recommendations, Reviewed with ICU nurse in detail: Nothing by mouth Aspiration precautions Elevate head of bed Decrease IV fluids to 50 mL per hour IF desaturation noted consider Lasix 20-40 mg IV single dose and increase oxygen support to [place] oximetry over 92-94% Abdominal ultrasound-scheduled for this afternoon Serum ammonia levels recheck H&H Family at bedside during evaluation ,discussed Critical care time was 31 minutes in patient evaluation [id number] coordination of care. Subjective Date of service: 08/27/16 Principal diagnosis: HELLP syndrome- resolving, status post Interval history: No cough or shortness of breath. Patient had a vomiting episode this afternoon. Transfusion terminated Objective Vital Signs - 12hr 08/27/16 08/27/16 08/27/16 04:58 05:00 06:00 Temperature Pulse Rate 83 84 84 Pulse Rate [ From Monitor] Respiratory 16 16 17 Rate Blood Pressure 119/54 108/54 123/68 O2 Sat by Pulse 97 97 95 Oximetry 08/27/16 08/27/16 08/27/16 06:42 07:00 08:00 Temperature 98.3 F Pulse Rate 86 84 86 Pulse Rate [ 73 From Monitor] Respiratory 19 17 22 Rate Blood Pressure 116/69 117/71 135/74 O2 Sat by Pulse 97 93 93 Oximetry 08/27/16 08/27/16 08/27/16 08:42 08:48 09:00 Temperature Pulse Rate 81 80 Pulse Rate [ From Monitor] Respiratory 14 15 Rate Blood Pressure 121/64 O2 Sat by Pulse 98 98 96 Oximetry 08/27/16 08/27/16 08/27/16 09:02 10:00 11:00 Temperature Pulse Rate 84 82 84 Pulse Rate [ From Monitor] Respiratory 16 15 20 Rate Blood Pressure 121/64 126/71 120/69 O2 Sat by Pulse 98 95 92 Oximetry 08/27/16 08/27/16 08/27/16 11:44 12:00 12:09 Temperature 98.1 F Pulse Rate 82 81 88 Pulse Rate [ 77 From Monitor] Respiratory 18 24 Rate Blood Pressure 123/70 127/70 127/70 O2 Sat by Pulse 98 96 Oximetry 08/27/16 08/27/16 08/27/16 12:26 12:41 13:00 Temperature 98.1 F Pulse Rate 81 84 Pulse Rate [ From Monitor] Respiratory 21 18 Rate Blood Pressure 127/70 131/72 125/86 O2 Sat by Pulse 95 100 97 Oximetry 08/27/16 08/27/16 08/27/16 13:11 13:41 13:56 Temperature Pulse Rate 72 74 74 Pulse Rate [ From Monitor] Respiratory 19 14 15 Rate Blood Pressure 120/63 132/66 132/66 O2 Sat by Pulse 99 Oximetry 08/27/16 08/27/16 08/27/16 14:00 14:11 14:41 Temperature 97.4 F L 97.4 F L Pulse Rate 72 67 80 Pulse Rate [ From Monitor] Respiratory 17 15 19 Rate Blood Pressure 120/67 117/62 130/76 O2 Sat by Pulse 98 Oximetry Constitutional: no acute distress, asleep, other (sleepy, do responsive and answering questions) Eyes: non-icteric ENT: oropharynx moist Neck: supple Ascultation: Bilateral: clear, diminished breath sounds Cardiovascular: regular rate and rhythm Gastrointestinal: normoactive bowel sounds, non-distended Integumentary: normal Extremities: no cyanosis, no cyanosis, no cyanosis Neurologic: non-focal exam, pupils equal and round CBC and BMP: 08/27/16 08:40 08/27/16 06:37 ABG, PT/INR, D-dimer: ABG POC ABG pH 7.479 (7.35-7.45) H 08/24/16 14:12 POC ABG pCO2 29.6 (35-45) L 08/24/16 14:12 POC ABG pO2 62 (80-105) L 08/24/16 14:12 POC ABG HCO3 21.9 08/24/16 14:12 POC ABG Total CO2 23 08/24/16 14:12 POC ABG O2 Sat 93 08/24/16 14:12 PT/INR, D-dimer PT 17.2 Sec. (12.2-14.9) H 08/27/16 11:15 INR 1.41 (0.87-1.13) H 08/27/16 11:15 Abnormal lab findings: Abnormal Labs 08/22/16 08/22/16 08/22/16 16:00 16:00 17:38 WBC RBC 3.64 L Hgb Hct RDW Plt Count 137 L Lymph % (Auto) 12.3 L [place] # Seg Neutrophils % 81.9 H Seg Neuts % (Manual) Lymphocytes % (Manual) Nucleated RBC % Seg Neutrophils # 8.3 H Seg Neutrophils # Man Percent Retic PT INR APTT POC ABG pH 7.117 L POC ABG pCO2 49.2 H POC ABG pO2 20 L Sodium Potassium Chloride Carbon Dioxide BUN Creatinine Glucose POC Glucose Lactic Acid Calcium Magnesium Total Bilirubin Direct Bilirubin AST ALT Alkaline Phosphatase Ammonia Lactate Dehydrogenase Total Creatine Kinase Total Protein Albumin LDL Cholesterol Direct Vitamin B12 Crossmatch See Detail 08/22/16 08/22/16 08/23/16 17:43 18:48 05:19 WBC 13.2 H 17.0 H RBC 3.62 L 3.16 L Hgb 9.9 L Hct RDW Plt Count 115 L 125 L Lymph % (Auto) 8.8 L [place] # 1.1 H Seg Neutrophils % 87.0 H 77.2 H Seg Neuts % (Manual) Lymphocytes % (Manual) Nucleated RBC % Seg Neutrophils # 11.5 H 13.1 H Seg Neutrophils # Man Percent Retic PT INR APTT POC ABG pH 7.078 L POC ABG pCO2 POC ABG pO2 25 L Sodium Potassium Chloride Carbon Dioxide BUN Creatinine Glucose POC Glucose Lactic Acid Calcium Magnesium Total Bilirubin Direct Bilirubin AST ALT Alkaline Phosphatase Ammonia Lactate Dehydrogenase Total Creatine Kinase Total Protein Albumin LDL Cholesterol Direct Vitamin B12 Crossmatch 08/23/16 08/23/16 08/23/16 07:50 07:50 08:19 WBC RBC Hgb 9.7 L Hct 30.0 L RDW Plt Count Lymph % (Auto) [place] # Seg Neutrophils % Seg Neuts % (Manual) Lymphocytes % (Manual) Nucleated RBC % Seg Neutrophils # Seg Neutrophils # Man Percent Retic PT 23.7 H INR 2.11 H APTT POC ABG pH POC ABG pCO2 POC ABG pO2 Sodium Potassium 5.9 H Chloride Carbon Dioxide 12 L BUN 18 H Creatinine 3.1 H Glucose 39 L* POC Glucose Lactic Acid Calcium Magnesium Total Bilirubin 4.3 H Direct Bilirubin 3.9 H AST 676 H ALT 470 H Alkaline Phosphatase 394 H Ammonia Lactate Dehydrogenase Total Creatine Kinase Total Protein 4.3 L Albumin 1.6 L LDL Cholesterol Direct 38 L Vitamin B12 Crossmatch 08/23/16 08/23/16 08/23/16 08:39 09:00 09:25 WBC RBC Hgb Hct RDW Plt Count Lymph % (Auto) [place] # Seg Neutrophils % Seg Neuts % (Manual) Lymphocytes % (Manual) Nucleated RBC % Seg Neutrophils # Seg Neutrophils # Man Percent Retic PT INR APTT POC ABG pH POC ABG pCO2 POC ABG pO2 Sodium Potassium Chloride Carbon Dioxide BUN Creatinine Glucose POC Glucose 52 L 178 H Lactic Acid 10.0 H* Calcium Magnesium Total Bilirubin Direct Bilirubin AST ALT Alkaline Phosphatase Ammonia Lactate Dehydrogenase Total Creatine Kinase Total Protein Albumin LDL Cholesterol Direct Vitamin B12 Crossmatch 08/23/16 08/23/16 08/23/16 11:05 12:02 12:26 WBC RBC Hgb Hct RDW Plt Count Lymph % (Auto) [place] # Seg Neutrophils % Seg Neuts % (Manual) Lymphocytes % (Manual) Nucleated RBC % Seg Neutrophils # Seg Neutrophils # Man Percent Retic PT INR APTT POC ABG pH POC ABG pCO2 POC ABG pO2 Sodium Potassium 5.5 H Chloride Carbon Dioxide 13 L BUN 19 H Creatinine 3.1 H Glucose 124 H POC Glucose 134 H 130 H Lactic Acid Calcium 8.3 L Magnesium Total Bilirubin 4.4 H Direct Bilirubin AST 521 H ALT 377 H Alkaline Phosphatase 345 H Ammonia Lactate Dehydrogenase Total Creatine Kinase Total Protein 4.6 L Albumin 1.9 L LDL Cholesterol Direct Vitamin B12 Crossmatch 08/23/16 08/23/16 08/23/16 12:49 15:30 15:30 WBC RBC Hgb Hct RDW Plt Count Lymph % (Auto) [place] # Seg Neutrophils % Seg Neuts % (Manual) Lymphocytes % (Manual) Nucleated RBC % Seg Neutrophils # Seg Neutrophils # Man Percent Retic PT 21.4 H INR 1.86 H APTT POC ABG pH POC ABG pCO2 POC ABG pO2 Sodium Potassium 5.1 H Chloride Carbon Dioxide BUN Creatinine Glucose POC Glucose 145 H Lactic Acid Calcium Magnesium Total Bilirubin Direct Bilirubin AST ALT Alkaline Phosphatase Ammonia Lactate Dehydrogenase 511 H Total Creatine Kinase Total Protein Albumin LDL Cholesterol Direct Vitamin B12 Crossmatch 08/23/16 08/23/16 08/23/16 15:30 15:30 15:56 WBC RBC Hgb Hct RDW Plt Count Lymph % (Auto) [place] # Seg Neutrophils % Seg Neuts % (Manual) Lymphocytes % (Manual) Nucleated RBC % Seg Neutrophils # Seg Neutrophils # Man Percent Retic PT INR APTT POC ABG pH POC ABG pCO2 POC ABG pO2 Sodium Potassium Chloride Carbon Dioxide BUN Creatinine Glucose POC Glucose 138 H Lactic Acid 7.1 H* Calcium Magnesium Total Bilirubin Direct Bilirubin AST ALT Alkaline Phosphatase Ammonia Lactate Dehydrogenase Total Creatine Kinase 1275 H Total Protein Albumin LDL Cholesterol Direct Vitamin B12 Crossmatch 08/23/16 08/23/16 08/23/16 16:19 17:30 18:02 WBC RBC Hgb Hct RDW Plt Count Lymph % (Auto) [place] # Seg Neutrophils % Seg Neuts % (Manual) Lymphocytes % (Manual) Nucleated RBC % Seg Neutrophils # Seg Neutrophils # Man Percent Retic PT INR APTT POC ABG pH 7.288 L POC ABG pCO2 28.5 L POC ABG pO2 66 L Sodium Potassium Chloride Carbon Dioxide BUN Creatinine Glucose POC Glucose 109 H 123 H Lactic Acid Calcium Magnesium Total Bilirubin Direct Bilirubin AST ALT Alkaline Phosphatase Ammonia Lactate Dehydrogenase Total Creatine Kinase Total Protein Albumin LDL Cholesterol Direct Vitamin B12 Crossmatch 08/23/16 08/23/16 08/23/16 20:05 20:23 21:50 WBC RBC Hgb Hct RDW Plt Count Lymph % (Auto) [place] # Seg Neutrophils % Seg Neuts % (Manual) Lymphocytes % (Manual) Nucleated RBC % Seg Neutrophils # Seg Neutrophils # Man Percent Retic PT 22.5 H INR 1.98 H APTT POC ABG pH POC ABG pCO2 POC ABG pO2 Sodium Potassium Chloride Carbon Dioxide 15 L BUN 19 H Creatinine 2.9 H Glucose 117 H POC Glucose 129 H Lactic Acid Calcium 7.3 L Magnesium Total Bilirubin 4.9 H Direct Bilirubin AST 369 H ALT 258 H Alkaline Phosphatase 291 H Ammonia Lactate Dehydrogenase Total Creatine Kinase Total Protein 4.3 L Albumin 1.7 L LDL Cholesterol Direct Vitamin B12 Crossmatch 08/23/16 08/23/16 08/23/16 21:50 21:50 22:16 WBC RBC Hgb Hct RDW Plt Count Lymph % (Auto) [place] # Seg Neutrophils % Seg Neuts % (Manual) Lymphocytes % (Manual) Nucleated RBC % Seg Neutrophils # Seg Neutrophils # Man Percent Retic PT INR APTT POC ABG pH POC ABG pCO2 POC ABG pO2 Sodium Potassium Chloride Carbon Dioxide BUN Creatinine Glucose POC Glucose 134 H Lactic Acid 4.6 H* Calcium Magnesium Total Bilirubin Direct Bilirubin AST ALT Alkaline Phosphatase Ammonia Lactate Dehydrogenase Total Creatine Kinase 1410 H Total Protein Albumin LDL Cholesterol Direct Vitamin B12 Crossmatch 08/24/16 08/24/16 08/24/16 00:13 01:47 02:37 WBC RBC Hgb Hct RDW Plt Count Lymph % (Auto) [place] # Seg Neutrophils % Seg Neuts % (Manual) Lymphocytes % (Manual) Nucleated RBC % Seg Neutrophils # Seg Neutrophils # Man Percent Retic PT INR APTT POC ABG pH POC ABG pCO2 POC ABG pO2 Sodium Potassium Chloride Carbon Dioxide BUN Creatinine Glucose POC Glucose 120 H 116 H 107 H Lactic Acid Calcium Magnesium Total Bilirubin Direct Bilirubin AST ALT Alkaline Phosphatase Ammonia Lactate Dehydrogenase Total Creatine Kinase Total Protein Albumin LDL Cholesterol Direct Vitamin B12 Crossmatch 08/24/16 08/24/16 08/24/16 03:25 04:10 05:00 WBC 12.7 H RBC 2.18 L Hgb 6.7 L D Hct 20.4 L D RDW Plt Count 102 L Lymph % (Auto) [place] # Seg Neutrophils % Seg Neuts % (Manual) Lymphocytes % (Manual) Nucleated RBC % Seg Neutrophils # Seg Neutrophils # Man Percent Retic PT INR APTT POC ABG pH POC ABG pCO2 POC ABG pO2 Sodium Potassium Chloride Carbon Dioxide BUN Creatinine Glucose POC Glucose 108 H 114 H Lactic Acid Calcium Magnesium Total Bilirubin Direct Bilirubin AST ALT Alkaline Phosphatase Ammonia Lactate Dehydrogenase Total Creatine Kinase Total Protein Albumin LDL Cholesterol Direct Vitamin B12 Crossmatch 08/24/16 08/24/16 08/24/16 05:00 05:00 05:00 WBC RBC Hgb Hct RDW Plt Count Lymph % (Auto) [place] # Seg Neutrophils % Seg Neuts % (Manual) Lymphocytes % (Manual) Nucleated RBC % Seg Neutrophils # Seg Neutrophils # Man Percent Retic PT 22.1 H INR 1.93 H APTT POC ABG pH POC ABG pCO2 POC ABG pO2 Sodium Potassium Chloride 108.0 H Carbon Dioxide 19 L BUN 21 H Creatinine 2.7 H Glucose POC Glucose Lactic Acid 3.0 H* Calcium 6.8 L Magnesium Total Bilirubin 4.6 H Direct Bilirubin AST 303 H ALT 204 H Alkaline Phosphatase 280 H Ammonia Lactate Dehydrogenase Total Creatine Kinase 1295 H Total Protein 4.1 L Albumin 1.6 L LDL Cholesterol Direct Vitamin B12 Crossmatch 08/24/16 08/24/16 08/24/16 14:12 14:30 17:45 WBC RBC Hgb Hct RDW Plt Count Lymph % (Auto) [place] # Seg Neutrophils % Seg Neuts % (Manual) Lymphocytes % (Manual) Nucleated RBC % Seg Neutrophils # Seg Neutrophils # Man Percent Retic PT INR APTT POC ABG pH 7.479 H POC ABG pCO2 29.6 L POC ABG pO2 62 L Sodium Potassium Chloride Carbon Dioxide BUN Creatinine Glucose POC Glucose Lactic Acid Calcium Magnesium 4.7 H Total Bilirubin Direct Bilirubin AST ALT Alkaline Phosphatase Ammonia 61.0 H Lactate Dehydrogenase Total Creatine Kinase Total Protein Albumin LDL Cholesterol Direct Vitamin B12 Crossmatch 08/24/16 08/25/16 08/25/16 23:30 00:55 02:14 WBC RBC Hgb Hct RDW Plt Count Lymph % (Auto) [place] # Seg Neutrophils % Seg Neuts % (Manual) Lymphocytes % (Manual) Nucleated RBC % Seg Neutrophils # Seg Neutrophils # Man Percent Retic PT INR APTT POC ABG pH POC ABG pCO2 POC ABG pO2 Sodium Potassium Chloride Carbon Dioxide BUN Creatinine Glucose POC Glucose 108 H 106 H Lactic Acid Calcium Magnesium 6.7 H Total Bilirubin Direct Bilirubin AST ALT Alkaline Phosphatase Ammonia Lactate Dehydrogenase Total Creatine Kinase Total Protein Albumin LDL Cholesterol Direct Vitamin B12 Crossmatch 08/25/16 08/25/16 08/25/16 05:45 05:45 05:45 WBC 19.1 H RBC 3.24 L Hgb 9.7 L D Hct 29.1 L D RDW 16.1 H Plt Count 112 L Lymph % (Auto) [place] # Seg Neutrophils % Seg Neuts % (Manual) Lymphocytes % (Manual) Nucleated RBC % Seg Neutrophils # Seg Neutrophils # Man Percent Retic PT 20.0 H INR 1.70 H APTT 42.3 H POC ABG pH POC ABG pCO2 POC ABG pO2 Sodium Potassium Chloride Carbon Dioxide BUN Creatinine Glucose POC Glucose Lactic Acid Calcium Magnesium 7.2 H Total Bilirubin Direct Bilirubin AST ALT Alkaline Phosphatase Ammonia Lactate Dehydrogenase Total Creatine Kinase Total Protein Albumin LDL Cholesterol Direct Vitamin B12 Crossmatch 08/25/16 08/25/16 08/25/16 05:45 12:24 12:40 WBC 19.4 H RBC 3.22 L Hgb 9.5 L Hct 28.6 L RDW 16.5 H Plt Count 106 L Lymph % (Auto) [place] # Seg Neutrophils % Seg Neuts % (Manual) 76.0 H Lymphocytes % (Manual) 8.0 L Nucleated RBC % 7.0 H Seg Neutrophils # Seg Neutrophils # Man 14.7 H Percent Retic PT INR APTT POC ABG pH POC ABG pCO2 POC ABG pO2 Sodium 136 L Potassium Chloride Carbon Dioxide BUN 31 H Creatinine 2.9 H Glucose POC Glucose Lactic Acid Calcium 6.7 L Magnesium 6.5 H Total Bilirubin 5.7 H Direct Bilirubin AST 194 H ALT 119 H Alkaline Phosphatase 299 H Ammonia Lactate Dehydrogenase Total Creatine Kinase Total Protein 4.4 L Albumin 1.7 L LDL Cholesterol Direct Vitamin B12 Crossmatch 08/25/16 08/25/16 08/25/16 17:53 19:56 23:18 WBC RBC Hgb Hct RDW Plt Count Lymph % (Auto) [place] # Seg Neutrophils % Seg Neuts % (Manual) Lymphocytes % (Manual) Nucleated RBC % Seg Neutrophils # Seg Neutrophils # Man Percent Retic PT INR APTT POC ABG pH POC ABG pCO2 POC ABG pO2 Sodium Potassium Chloride Carbon Dioxide BUN Creatinine Glucose POC Glucose 107 H Lactic Acid Calcium Magnesium 5.9 H 5.2 H Total Bilirubin Direct Bilirubin AST ALT Alkaline Phosphatase Ammonia Lactate Dehydrogenase Total Creatine Kinase Total Protein Albumin LDL Cholesterol Direct Vitamin B12 Crossmatch 08/26/16 08/26/16 08/26/16 04:50 04:50 08:26 WBC 19.1 H RBC 2.73 L Hgb 8.2 L Hct 24.4 L RDW 16.1 H Plt Count 95 L Lymph % (Auto) [place] # Seg Neutrophils % Seg Neuts % (Manual) 86.0 H Lymphocytes % (Manual) 9.0 L Nucleated RBC % 10.0 H Seg Neutrophils # Seg Neutrophils # Man 16.4 H Percent Retic PT INR APTT POC ABG pH POC ABG pCO2 POC ABG pO2 Sodium 136 L Potassium Chloride Carbon Dioxide BUN 33 H Creatinine 2.0 H Glucose POC Glucose Lactic Acid Calcium 6.3 L Magnesium 4.5 H Total Bilirubin 7.6 H Direct Bilirubin 6.6 H AST 112 H ALT 63 H Alkaline Phosphatase 253 H Ammonia Lactate Dehydrogenase Total Creatine Kinase Total Protein 4.1 L Albumin 1.6 L LDL Cholesterol Direct Vitamin B12 Crossmatch 08/26/16 08/26/16 08/26/16 10:07 14:54 17:47 WBC RBC Hgb Hct RDW Plt Count Lymph % (Auto) [place] # Seg Neutrophils % Seg Neuts % (Manual) Lymphocytes % (Manual) Nucleated RBC % Seg Neutrophils # Seg Neutrophils # Man Percent Retic PT INR APTT POC ABG pH POC ABG pCO2 POC ABG pO2 Sodium Potassium Chloride Carbon Dioxide BUN Creatinine Glucose POC Glucose 115 H 109 H 120 H Lactic Acid Calcium Magnesium Total Bilirubin Direct Bilirubin AST ALT Alkaline Phosphatase Ammonia Lactate Dehydrogenase Total Creatine Kinase Total Protein Albumin LDL Cholesterol Direct Vitamin B12 Crossmatch 08/26/16 08/26/16 08/26/16 20:02 21:42 23:41 WBC RBC Hgb Hct RDW Plt Count Lymph % (Auto) [place] # Seg Neutrophils % Seg Neuts % (Manual) Lymphocytes % (Manual) Nucleated RBC % Seg Neutrophils # Seg Neutrophils # Man Percent Retic PT INR APTT POC ABG pH POC ABG pCO2 POC ABG pO2 Sodium Potassium Chloride Carbon Dioxide BUN Creatinine Glucose POC Glucose 123 H 125 H 114 H Lactic Acid Calcium Magnesium Total Bilirubin Direct Bilirubin AST ALT Alkaline Phosphatase Ammonia Lactate Dehydrogenase Total Creatine Kinase Total Protein Albumin LDL Cholesterol Direct Vitamin B12 Crossmatch 08/27/16 08/27/16 08/27/16 01:59 04:01 05:46 WBC RBC Hgb Hct RDW Plt Count Lymph % (Auto) [place] # Seg Neutrophils % Seg Neuts % (Manual) Lymphocytes % (Manual) Nucleated RBC % Seg Neutrophils # Seg Neutrophils # Man Percent Retic PT INR APTT POC ABG pH POC ABG pCO2 POC ABG pO2 Sodium Potassium Chloride Carbon Dioxide BUN Creatinine Glucose POC Glucose 127 H 144 H 121 H Lactic Acid Calcium Magnesium Total Bilirubin Direct Bilirubin AST ALT Alkaline Phosphatase Ammonia Lactate Dehydrogenase Total Creatine Kinase Total Protein Albumin LDL Cholesterol Direct Vitamin B12 Crossmatch 08/27/16 08/27/16 08/27/16 06:37 06:37 08:20 WBC 16.1 H RBC 2.19 L Hgb 6.3 L Hct 19.9 L* RDW 16.2 H Plt Count 103 L Lymph % (Auto) [place] # Seg Neutrophils % Seg Neuts % (Manual) 83.0 H Lymphocytes % (Manual) 10.0 L Nucleated RBC % 9.0 H Seg Neutrophils # Seg Neutrophils # Man 13.4 H Percent Retic PT INR APTT POC ABG pH POC ABG pCO2 POC ABG pO2 Sodium 133 L Potassium Chloride Carbon Dioxide 20 L BUN 31 H Creatinine Glucose 118 H POC Glucose Lactic Acid Calcium 6.4 L Magnesium Total Bilirubin 9.7 H Direct Bilirubin AST 73 H ALT Alkaline Phosphatase 215 H Ammonia Lactate Dehydrogenase Total Creatine Kinase Total Protein 3.8 L Albumin 1.5 L LDL Cholesterol Direct Vitamin B12 Crossmatch See Detail 08/27/16 08/27/16 08/27/16 08:40 08:40 11:15 WBC RBC Hgb 6.1 L Hct 18.4 L* RDW Plt Count Lymph % (Auto) [place] # Seg Neutrophils % Seg Neuts % (Manual) Lymphocytes % (Manual) Nucleated RBC % Seg Neutrophils # Seg Neutrophils # Man Percent Retic PT 17.2 H INR 1.41 H APTT POC ABG pH POC ABG pCO2 POC ABG pO2 Sodium Potassium Chloride Carbon Dioxide BUN Creatinine Glucose POC Glucose Lactic Acid Calcium Magnesium Total Bilirubin Direct Bilirubin AST ALT Alkaline Phosphatase Ammonia Lactate Dehydrogenase 844 H Total Creatine Kinase Total Protein Albumin LDL Cholesterol Direct Vitamin B12 Crossmatch 08/27/16 08/27/16 11:15 11:15 WBC RBC Hgb Hct RDW Plt Count Lymph % (Auto) [place] # Seg Neutrophils % Seg Neuts % (Manual) Lymphocytes % (Manual) Nucleated RBC % Seg Neutrophils # Seg Neutrophils # Man Percent Retic 6.59 H PT INR APTT POC ABG pH POC ABG pCO2 POC ABG pO2 Sodium Potassium Chloride Carbon Dioxide BUN Creatinine Glucose POC Glucose Lactic Acid Calcium Magnesium Total Bilirubin Direct Bilirubin AST ALT Alkaline Phosphatase Ammonia Lactate Dehydrogenase Total Creatine Kinase Total Protein Albumin LDL Cholesterol Direct Vitamin B12 > 2000 H Crossmatch Chest x-ray: image reviewed, other (report pending)
--- NOTE | 2016-08-27 17:11 | Progress Note ---
Assessment and Plan Assessment and plan: Patient is 41 yo woman who was in her 3rd trimester of presented due to decrease movement, was done. Hospitalist was called for viral illness, which was diagnosis prior to hospitalization. After patient was evaluated by Hospitalist, Dr. Brown, for the viral illness in recovery room after the ; she developed hypotension and jaundice. She was transferred to the ICU under the [facility] service. Operative note as follows, "Date of operation 08/22/16, Diagnosis #1 Intrauterine gestation at 31+ weeks, # 2 NRFHT, #3 viral infection, #4 BPP 09/11, #5 meconium, Postop diagnosis #1-6 same as above, #7 delivery of viable fetus male operation performed primary low segment transverse , #9 PP hemorrhage, #10 uterine atony, Surgeon :Dr. Melton Anesthesia: General Anesthesiologist: Dr. Mendoza Estimated blood loss 1200 mL, Lindsey catheter to bladder 400 mL clear yellow urine 1. HELLP syndrome suspected, baby delivered,, LFTs continues to his determined down, although patient remains very lethergic will continue close monitoring 2. Hypotension: Resolved. Continue gentle IV fluids 3. Hypoglycemia:improved 4. Hyperkalemia: Recheck 5. Severe protein calorie malnutrition albumin 1.6, present on admission 6. Acute Kidney injury on CKD likely secodary to vasomotor nephropathy and in the setting of hypotension. Follow in am 7. Acute blood loss anemia- Transfused. recheck H/H concerned for Hemolysis- Hematology consulted. Chills with transfusion today, R/O TRALI 8. Leukocytois- stable. No fever, possible reactive,. will monitor 9. Thrombocytopenia -we'll obtain an ophthalmology consult to rule out any other complicating pathology. 11. Metabolic encephalopathy -If patient continues to remain lethergic and unable to take PO will need Neurology eval 12. Possible Hemolytic Anemia with Jaundice 13. DVT/GI prophy 12. Discussed in detail with family at bedside The high probability of a clinically significant, sudden or life threatening deterioration of the [hematologic, hepatology, neurology] system(s) required my full and direct attention, intervention and personal management. The aggregate critical care time was [40] minutes. This time is in addition to time spent performing reported procedures but includes the following: [x] Data Review and interpretation [x] Patient assessment and monitoring of vital signs [x] Documentation [x] Medication orders and management History Interval history: Patient seen and examined. Follow up HELLP Syndrome. Patient remains in intensive care unit, improving, continues to be mildly verbal this am but still lethargic good urine output and not requiring any pressors. No cp, n/v. Imaging, old records, testing, labs, nursing notes reviewed. Patient during transfusion of blood at the very and had chills but no deviated elevated temperature. Hospitalist Physical - Physical exam Narrative exam: VITAL SIGNS: Reviewed. GENERAL: The patient appeared well nourished and normally developed. Vital signs as documented. HEAD: No signs of head trauma. EYES: Pupils are equal. icteric pupils EARS: Hearing grossly intact. MOUTH: Oropharynx is normal. NECK: No adenopathy, no JVD. CHEST: Chest with clear breath sounds bilaterally. No wheezes, rales, or rhonchi. CARDIAC: Regular rate and rhythm. S1 and S2, without murmurs, gallops, or rubs. VASCULAR: Peripheral pulses normal and equal in all extremities. ABDOMEN: Soft, tender in the lower quadrant status post surgical incision pressure dressing in place no other drainage noted. No sign of distention. No rebound or guarding, and no masses palpated. Bowel Sounds normal. MUSCULOSKELETAL: Good range of motion of all major joints. Extremities without clubbing, cyanosis. NEUROLOGIC EXAM: Awake, lethargic and oriented to person and place. No focal sensory or strength deficits. Follows simple commands. PSYCHIATRIC: Mood normal. SKIN: Jaundiced. Surgical incision noted no overt drainage. Generalized anasarca. - Constitutional Vitals: Temp Pulse Resp BP Pulse Ox 98.9 F 80 19 130/76 98 08/27/16 16:00 08/27/16 14:41 08/27/16 14:41 08/27/16 14:41 08/27/16 14:00 General appearance: Present: no acute distress, other (lethargic) Results - Labs CBC & Chem 7: 08/27/16 08:40 08/27/16 06:37 Labs: Laboratory Last Values WBC 16.1 K/mm3 (4.5-11.0) H 08/27/16 06:37 RBC 2.19 M/mm3 (3.65-5.03) L 08/27/16 06:37 Hgb 6.1 gm/dl (10.1-14.3) L 08/27/16 08:40 Hct 18.4 % (30.3-42.9) L* 08/27/16 08:40 MCV 91 fl (79-97) 08/27/16 06:37 MCH 29 pg (28-32) 08/27/16 06:37 MCHC 32 % (30-34) 08/27/16 06:37 RDW 16.2 % (13.2-15.2) H 08/27/16 06:37 Plt Count 103 K/mm3 (140-440) L 08/27/16 06:37 Lymph % (Auto) 14.6 % (13.4-35.0) 08/23/16 05:19 [place] % (Auto) 6.6 % (0.0-7.3) 08/23/16 05:19 Eos % (Auto) 1.2 % (0.0-4.3) 08/23/16 05:19 Baso % (Auto) 0.4 % (0.0-1.8) 08/23/16 05:19 Lymph # Video Intern 08/26/16 04:50 [place] # 1.1 K/mm3 (0.0-0.8) H 08/23/16 05:19 Eos # 0.2 K/mm3 (0.0-0.4) 08/23/16 05:19 Baso # 0.1 K/mm3 (0.0-0.1) 08/23/16 05:19 Add Manual Diff Complete 08/27/16 06:37 Total Counted 100 08/27/16 06:37 Seg Neutrophils % 77.2 % (40.0-70.0) H 08/23/16 05:19 Seg Neuts % (Manual) 83.0 % (40.0-70.0) H 08/27/16 06:37 Band Neutrophils % 5.0 % 08/27/16 06:37 Lymphocytes % (Manual) 10.0 % (13.4-35.0) L 08/27/16 06:37 Reactive Lymphs % (Man) 0 % 08/27/16 06:37 Monocytes % (Manual) 2.0 % (0.0-7.3) 08/27/16 06:37 Eosinophils % (Manual) 0 % (0.0-4.3) 08/27/16 06:37 Basophils % (Manual) 0 % (0.0-1.8) 08/27/16 06:37 Metamyelocytes % 0 % 08/27/16 06:37 Myelocytes % 0 % 08/27/16 06:37 Promyelocytes % 0 % 08/27/16 06:37 Blast Cells % 0 % 08/27/16 06:37 Nucleated RBC % 9.0 % (0.0-0.9) H 08/27/16 06:37 Seg Neutrophils # 13.1 K/mm3 (1.8-7.7) H 08/23/16 05:19 Seg Neutrophils # Man 13.4 K/mm3 (1.8-7.7) H 08/27/16 06:37 Band Neutrophils # 0.8 K/mm3 08/27/16 06:37 Lymphocytes # (Manual) 1.6 K/mm3 (1.2-5.4) 08/27/16 06:37 Abs React Lymphs (Man) 0.0 K/mm3 08/27/16 06:37 Monocytes # (Manual) 0.3 K/mm3 (0.0-0.8) 08/27/16 06:37 Eosinophils # (Manual) 0.0 K/mm3 (0.0-0.4) 08/27/16 06:37 Basophils # (Manual) 0.0 K/mm3 (0.0-0.1) 08/27/16 06:37 Metamyelocytes # 0.0 K/mm3 08/27/16 06:37 Myelocytes # 0.0 K/mm3 08/27/16 06:37 Promyelocytes # 0.0 K/mm3 08/27/16 06:37 Blast Cells # 0.0 K/mm3 08/27/16 06:37 WBC Morphology Not Reportable 08/27/16 06:37 Hypersegmented Neuts Not Reportable 08/27/16 06:37 Hyposegmented Neuts Not Reportable 08/27/16 06:37 Hypogranular Neuts Not Reportable 08/27/16 06:37 Smudge Cells Not Reportable 08/27/16 06:37 Toxic Granulation Not Reportable 08/27/16 06:37 Toxic Vacuolation Not Reportable 08/27/16 06:37 Dohle Bodies Not Reportable 08/27/16 06:37 Pelger-Huet Anomaly Not Reportable 08/27/16 06:37 Alaina Rods Not Reportable 08/27/16 06:37 Platelet Estimate Not Reportable 08/27/16 06:37 Clumped Platelets Not Reportable 08/27/16 06:37 Plt Clumps, EDTA Not Reportable 08/27/16 06:37 Large Platelets Not Reportable 08/27/16 06:37 Giant Platelets Not Reportable 08/27/16 06:37 Platelet Satelliting Not Reportable 08/27/16 06:37 Plt Morphology Comment Not Reportable 08/27/16 06:37 RBC Morphology Not Reportable 08/27/16 06:37 Dimorphic RBCs Not Reportable 08/27/16 06:37 Polychromasia 1+ 08/27/16 06:37 Hypochromasia Not Reportable 08/27/16 06:37 Poikilocytosis Not Reportable 08/27/16 06:37 Anisocytosis 1+ 08/27/16 06:37 Microcytosis Not Reportable 08/27/16 06:37 Macrocytosis Not Reportable 08/27/16 06:37 Spherocytes Not Reportable 08/27/16 06:37 Pappenheimer Bodies Not Reportable 08/27/16 06:37 Sickle Cells Not Reportable 08/27/16 06:37 Target Cells Not Reportable 08/27/16 06:37 Tear Drop Cells Not Reportable 08/27/16 06:37 Ovalocytes Not Reportable 08/27/16 06:37 Helmet Cells Not Reportable 08/27/16 06:37 Wh[place]aker-[place] Bodies Not Reportable 08/27/16 06:37 [place] Rings Not Reportable 08/27/16 06:37 [place] Cells Rare 08/27/16 06:37 Bite Cells Not Reportable 08/27/16 06:37 Crenated Cell Not Reportable 08/27/16 06:37 Elliptocytes Not Reportable 08/27/16 06:37 Acanthocytes (Spur) Not Reportable 08/27/16 06:37 Rouleaux Not Reportable 08/27/16 06:37 Hemoglobin C Crystals Not Reportable 08/27/16 06:37 Schistocytes Rare 08/27/16 06:37 Malaria parasites Not Reportable 08/27/16 06:37 Percent Retic 6.59 % (0.78-2.58) H 08/27/16 11:15 Sickle Cell Screen Negative (Negative) 08/22/16 18:48 Daljit Bodies Not Reportable 08/27/16 06:37 Hem Pathologist Commnt No 08/27/16 06:37 PT 17.2 Sec. (12.2-14.9) H 08/27/16 11:15 INR 1.41 (0.87-1.13) H 08/27/16 11:15 APTT 42.3 Sec. (24.2-36.6) H 08/25/16 05:45 POC ABG pH 7.479 (7.35-7.45) H 08/24/16 14:12 POC ABG pCO2 29.6 (35-45) L 08/24/16 14:12 POC ABG pO2 62 (80-105) L 08/24/16 14:12 POC ABG HCO3 21.9 08/24/16 14:12 POC ABG Total CO2 23 08/24/16 14:12 POC ABG O2 Sat 93 08/24/16 14:12 POC ABG Base Excess -2 08/24/16 14:12 FiO2 3 % 08/24/16 14:12 Sodium 133 mmol/L (137-145) L 08/27/16 06:37 Potassium 4.1 mmol/L (3.6-5.0) 08/27/16 06:37 Chloride 101.8 mmol/L (98-107) 08/27/16 06:37 Carbon Dioxide 20 mmol/L (22-30) L 08/27/16 06:37 Anion Gap 15 mmol/L 08/27/16 06:37 BUN 31 mg/dL (7-17) H 08/27/16 06:37 Creatinine 1.1 mg/dL (0.7-1.2) 08/27/16 06:37 Estimated GFR 55 ml/min 08/27/16 06:37 BUN/Creatinine Ratio 28.18 % 08/27/16 06:37 Glucose 118 mg/dL (65-100) H 08/27/16 06:37 POC Glucose 121 (70-105) H 08/27/16 05:46 Lactic Acid 3.0 mmol/L (0.7-2.0) H* 08/24/16 05:00 Calcium 6.4 mg/dL (8.4-10.2) L 08/27/16 06:37 Magnesium 4.5 mg/dL (1.7-2.3) H 08/26/16 04:50 Total Bilirubin 9.7 mg/dL (0.1-1.2) H 08/27/16 06:37 Direct Bilirubin 6.6 mg/dL (0-0.2) H 08/26/16 08:26 Indirect Bilirubin 1.0 mg/dL 08/26/16 08:26 AST 73 units/L (5-40) H 08/27/16 06:37 ALT 41 units/L (7-56) 08/27/16 06:37 Alkaline Phosphatase 215 units/L (35-129) H 08/27/16 06:37 Ammonia 53.0 umol/L (25-60) 08/27/16 11:15 Lactate Dehydrogenase 844 units/L (91-180) H 08/27/16 08:40 Total Creatine Kinase 1295 units/L (30-135) H 08/24/16 05:00 NT-Pro-B Natriuret Pep 241.0 pg/mL (0-450) 08/27/16 16:30 Total Protein 3.8 g/dL (6.3-8.2) L 08/27/16 06:37 Albumin 1.5 g/dL (3.9-5) L 08/27/16 06:37 Albumin/Globulin Ratio 0.7 % 08/27/16 06:37 LDL Cholesterol Direct 38 mg/dL (50-130) L 08/23/16 07:50 Vitamin B12 > 2000 pg/mL (211-911) H 08/27/16 11:15 Folate 10.54 ng/mL (7.3-26.0) 08/27/16 11:15 Urine Color [place] (Yellow) 08/27/16 15:20 Urine Turbidity Clear (Clear) 08/27/16 15:20 Urine pH 6.0 (5.0-7.0) 08/27/16 15:20 Ur Specific [place] 1.018 (1.003-1.030) 08/27/16 15:20 Urine Protein 30 mg/dl mg/dL (Negative) 08/27/16 15:20 Urine Glucose (UA) Neg mg/dL (Negative) 08/27/16 15:20 Urine Ketones Neg mg/dL (Negative) 08/27/16 15:20 Urine Blood Mod (Negative) 08/27/16 15:20 Urine Nitrite Neg (Negative) 08/27/16 15:20 Urine Bilirubin Mod (Negative) 08/27/16 15:20 Urine Ictotest Positive (Negative) 08/27/16 15:20 Urine Urobilinogen 4.0 mg/dL (<2.0) 08/27/16 15:20 Ur Leukocyte Esterase Neg (Negative) 08/27/16 15:20 Urine WBC (Auto) 10.0 /HPF (0.0-6.0) H 08/27/16 15:20 Urine RBC (Auto) 7.0 /HPF (0.0-6.0) 08/27/16 15:20 U Epithel Cells (Auto) < 1.0 /HPF (0-13.0) 08/27/16 15:20 Granular Casts 4 /LPF 08/27/16 15:20 Urine Mucus Few /HPF 08/27/16 15:20 Urine Opiates Screen Presumptive negative 08/22/16 18:30 Urine Methadone Screen Presumptive negative 08/22/16 18:30 Ur Barbiturates Screen Presumptive negative 08/22/16 18:30 Ur Phencyclidine Scrn Presumptive negative 08/22/16 18:30 Ur Amphetamines Screen Presumptive negative 08/22/16 18:30 U Benzodiazepines Scrn Presumptive negative 08/22/16 18:30 Urine Cocaine Screen Presumptive negative 08/22/16 18:30 U Marijuana (THC) Screen Presumptive negative 08/22/16 18:30 Drugs of Abuse Note Disclamer 08/22/16 18:30 RPR Nonreactive (Nonreactive) 08/22/16 18:34 CMV DNA PCR log ad copy writer/mL See scanned report 08/23/16 13:03 Hepatitis A IgM Ab -1 (NonReactive) 08/27/16 11:15 Hep Bs Antigen Non-reactive (Negative) 08/22/16 18:34 Hepatitis C Antibody Non-reactive (NonReactive) 08/22/16 18:34 Herpes Simplex Source Swab (()) 08/25/16 11:45 HSV I DNA PCR Not detected (Not Detected) 08/25/16 11:45 HSV II DNA PCR Not detected (Not Detected) 08/25/16 11:45 HIV 1&2 Antibody Rapid Non react (Non React) 08/23/16 09:25 HIV P24 Antigen Non react (Non React) 08/23/16 09:25 Rubella IgG Antibody Immune (Immune) 08/22/16 18:34 Rubella IgM Antibody <0.90 (<0.90) 08/22/16 18:34 Schistocytes Smear Rare 08/26/16 04:50 Toxoplasma IgG Ab <=0.90 (<=0.90) 08/22/16 18:34 Toxoplasma IgM Ab Negative (Negative) 08/22/16 18:34 Blood Type O NEGATIVE 08/27/16 08:20 Antibody Screen Positive 08/27/16 08:20 Antibody Identification Anti-D (Passively Aquired) 08/27/16 08:20 Direct Antiglob Test Negative 08/27/16 08:20 JYOTI, Poly Interpret Negative 08/27/16 08:20 KB % Cells Negative 08/22/16 Unknown Crossmatch See Detail 08/27/16 08:20 Pre-Trans JYOTI Negative 08/27/16 15:20 Pre-Trans JYOTI Poly Negative 08/27/16 15:20 Post-Trans Blood Type O negative 08/27/16 15:20 Post-Trans JYOTI Negative 08/27/16 15:20 Post-Trans JYOTI Poly Negative 08/27/16 15:20
--- NOTE | 2016-08-27 17:16 | XRay Report ---
FINAL REPORT EXAM: XR CHEST 1V AP HISTORY: Possible pulmonary edema post transfusion TECHNIQUE: Single-view chest PRIORS: Chest radiograph 08/22/2016 FINDINGS: There has been interval placement of a right internal jugular central venous catheter coursing to the level of the cavoatrial junction. The patient is rotated to the left side which exaggerates left heart border. There is increased opacity in the retrocardiac region of the left lung base with silhouetting of the left hemidiaphragm. No acute osseous abnormality is identified. IMPRESSION: 1. Atelectasis versus infiltrate in the retrocardiac region of the left lung base. There may be a component edema present. The appearance may be exaggerated by diminished lung volumes. 2. Interval placement of right internal jugular central venous catheter coursing to the level of the cavoatrial junction.
[2016-08-27 19:44] LABS: Hematocrit 20.1 % (30.3-42.9); Hemoglobin 6.6 gm/dl (10.1-14.3); Mean Corpuscular HGB Conc 33 % (30-34); Mean Corpuscular Hemoglobin 30 pg (28-32); Mean Corpuscular Volume 92 fl (79-97); Red Blood Count 2.19 M/mm3 (3.65-5.03); Red Cell Distribution Width 15.9 % (13.2-15.2)
[2016-08-27 19:51] LABS: Platelet Count 78 K/mm3 (140-440); White Blood Count 26.5 K/mm3 (4.5-11.0)
[2016-08-27] MEDS: MORPHINE IV PRN (19:52)
[2016-08-27] MEDS: ZOFRAN IV PRN (19:53)
[2016-08-27] MEDS ORDERED: BENADRYL IV ONE (21:45)
--- NOTE | 2016-08-27 22:12 | Event Note ---
Date: 08/27/16 Awaiting result of abd ultrasound. no report at this time.
--- NOTE | 2016-08-27 22:53 | Consultation ---
REFERRING PHYSICIAN: Bird Quiros MD REASON FOR CONSULTATION: Thrombocytopenia. HISTORY OF PRESENT ILLNESS: The patient is a 41-year-old Setsw[place] speaking female, who was admitted to the hospital with evidence of HELLP syndrome. She underwent emergent . During her hospital course, the patient has had shown elevated liver enzymes, which did improve with the , but the patient has continued to have elevated bilirubin. She also has evidence of anemia requiring packed RBCs. The patient's platelet count on her admission was which did drop to 95 and Hematology consult was called. Today, platelet count has come up to 103. Hemoglobin dropped today 6.3 from 8.2 yesterday. White count is 16.1. The patient's total bilirubin was 9.7, which is also started going up slowly. The patient has no history of liver disorder. She does not consume alcohol. The patient did have some bleeding from her site and from vaginal area. PAST MEDICAL HISTORY: During her , the patient had a viral syndrome, having body aches and runny nose for about 3 days. She was started on Tamiflu. also of note, the infant had hydrops and the has been transferred to [facility]. PHYSICAL EXAMINATION: GENERAL: The patient is sleepy, arousable, seems to be better than yesterday. HEENT: Icterus noted in the conjunctivae. CHEST: Decreased breath sounds. ABDOMEN: Slightly distended, nontender. ASSESSMENT AND PLAN: 1. Thrombocytopenia, possibly related to HELLP syndrome, improving. 2. Elevated bilirubin, mostly direct, cause? doubt hemolysis causing this. 3. Anemia, rule out hemolysis. RECOMMENDATION AND PLAN: At this time, discussed with Dr. Cade. He will order an ultrasound of the liver. We will also give her packed RBCs. Check LDH, and retic count, haptoglobin. We will check B12 and folate levels. Monitor closely. JOB# [id number] ALEX/[place]
[2016-08-28] MEDS: NORMODYNE PO SCH ×2 (04:40→10:26)
[2016-08-28 06:09] LABS: Hematocrit 23.5 % (30.3-42.9); Mean Corpuscular HGB Conc 34 % (30-34); Mean Corpuscular Hemoglobin 32 pg (28-32); Mean Corpuscular Volume 93 fl (79-97); Red Blood Count 2.54 M/mm3 (3.65-5.03); Red Cell Distribution Width 15.4 % (13.2-15.2)
[2016-08-28 06:12] LABS: INR 1.6 (0.87-1.13)
[2016-08-28 06:18] LABS: Alanine Aminotransferase 48 units/L (7-56); Albumin 1.5 g/dL (3.9-5); Albumin/Globulin Ratio 0.6 %; Alkaline Phosphatase 252 units/L (35-129); Anion Gap 17 mmol/L; BUN/Creatinine Ratio 58.75; Bilirubin,Total 25.3 mg/dL (0.1-1.2); Blood Urea Nitrogen 47 mg/dL (7-17); Calcium 6.7 mg/dL (8.4-10.2); Carbon Dioxide 19 mmol/L (22-30); Chloride 101.4 mmol/L (98-107); Glucose 130 mg/dL (65-100); Potassium 4.5 mmol/L (3.6-5.0); Sodium 133 mmol/L (137-145); Total Protein 4.2 g/dL (6.3-8.2)
[2016-08-28 06:31] LABS: Platelet Count 49 K/mm3 (140-440); White Blood Count 29.9 K/mm3 (4.5-11.0)
[2016-08-28 07:41] LABS: Basophils % (Manual) 0 % (0.0-1.8); Blastocytes % (Manual) 0 %; Eosinophils % (Manual) 0 % (0.0-4.3); Total Cells Counted Percent 4.5
[2016-08-28 07:42] LABS: Anisocytosis 2+; Polychromasia 1+
[2016-08-28 07:44] LABS: Microcytosis Few
[2016-08-28 07:45] LABS: Diff Status Complete; Ovalocytes Few; Platelet Estimate Appears Decreased
--- NOTE | 2016-08-28 08:46 | Hem/Onc Progress Note ---
Assessment and Plan At this time, I white count has gone up and platelets have gone down. I am concerned about infection in this situation. She did get a dose of sterile but that was after the first unit of blood and her white count had started to go up. I will get blood cultures urine cultures and empirically start her on Levaquin. Will get infectious disease evaluation also. Follow-up on the ultrasound of the abdomen. Closely monitor. Continue supportive care. If the platelets go below 20 or if she starts having bleeding, would need platelet transfusion too. Her indices to have elevated retake count and there is a component of hemolysis. We will closely monitor and transfuse as needed. Discussed with Dr. haddad. Also discussed with the nurse and with the patient' s family Subjective Date of service: 08/28/16 Interval history: Patient is more alert. She is quite jaundiced. See 2 units of packed RBCs. Did have chills after the first unit. Received second unit with the medication with steroids. No fever. Ultrasound of the abdomen is done results are pending Objective - Exam Narrative Exam: Icteric. Alert. Wanting Food - Constitutional Vitals: Last Vital Signs Temp 98.2 F 08/28/16 04:16 Pulse 78 08/28/16 08:00 Resp 22 08/28/16 08:00 BP 128/77 08/28/16 08:00 Pulse Ox 94 08/28/16 07:30 General appearance: mild distress Performance status: 4-completely disabled - Neck Neck: supple - Respiratory Respiratory: bilateral: diminished - Cardiovascular Rhythm: regular Extremities: abnormal Extremity abnormal: edema - Gastrointestinal General gastrointestinal: Present: distended - Labs Lab Results: Laboratory Results - last 24 hr 08/22/16 08/23/16 08/27/16 18:54 13:03 06:37 WBC RBC Hgb Hct MCV MCH MCHC RDW Plt Count Add Manual Diff Complete Total Counted 100 Seg Neutrophils % Seg Neuts % (Manual) 83.0 H Band Neutrophils % 5.0 Lymphocytes % (Manual) 10.0 L Reactive Lymphs % (Man) 0 Monocytes % (Manual) 2.0 Eosinophils % (Manual) 0 Basophils % (Manual) 0 Metamyelocytes % 0 Myelocytes % 0 Promyelocytes % 0 Blast Cells % 0 Nucleated RBC % 9.0 H Seg Neutrophils # Man 13.4 H Band Neutrophils # 0.8 Lymphocytes # (Manual) 1.6 Abs React Lymphs (Man) 0.0 Monocytes # (Manual) 0.3 Eosinophils # (Manual) 0.0 Basophils # (Manual) 0.0 Metamyelocytes # 0.0 Myelocytes # 0.0 Promyelocytes # 0.0 Blast Cells # 0.0 WBC Morphology Not Reportable Hypersegmented Neuts Not Reportable Hyposegmented Neuts Not Reportable Hypogranular Neuts Not Reportable Smudge Cells Not Reportable Toxic Granulation Not Reportable Toxic Vacuolation Not Reportable Dohle Bodies Not Reportable Pelger-Huet Anomaly Not Reportable [place]a Rods Not Reportable Platelet Estimate Not Reportable Clumped Platelets Not Reportable Plt Clumps, EDTA Not Reportable Large Platelets Not Reportable Giant Platelets Not Reportable Platelet Satelliting Not Reportable Plt Morphology Comment Not Reportable RBC Morphology Not Reportable Dimorphic RBCs Not Reportable Polychromasia 1+ Hypochromasia Not Reportable Poikilocytosis Not Reportable Anisocytosis 1+ Microcytosis Not Reportable Macrocytosis Not Reportable Spherocytes Not Reportable Pappenheimer Bodies Not Reportable Sickle Cells Not Reportable Target Cells Not Reportable Tear Drop Cells Not Reportable Ovalocytes Not Reportable Helmet Cells Not Reportable [place] Bodies Not Reportable [place] Rings Not Reportable [place] Cells Rare Bite Cells Not Reportable Crenated Cell Not Reportable Elliptocytes Not Reportable Acanthocytes (Spur) Not Reportable Rouleaux Not Reportable Hemoglobin C Crystals Not Reportable Schistocytes Rare Malaria parasites Not Reportable Percent Retic Daljit Bodies Not Reportable Hem Pathologist Commnt No PT INR Sodium Potassium Chloride Carbon Dioxide Anion Gap BUN Creatinine Estimated GFR BUN/Creatinine Ratio Glucose POC Glucose Calcium Total Bilirubin AST ALT Alkaline Phosphatase Ammonia Lactate Dehydrogenase NT-Pro-B Natriuret Pep Total Protein Albumin Albumin/Globulin Ratio Vitamin B12 Folate Urine Color Urine Turbidity Urine pH Ur Specific [place] Urine Protein Urine Glucose (UA) Urine Ketones Urine Blood Urine Nitrite Urine Bilirubin Urine Ictotest Urine Urobilinogen Ur Leukocyte Esterase Urine WBC (Auto) Urine RBC (Auto) U Epithel Cells (Auto) Granular Casts Urine Mucus CMV DNA PCR log surgical endoscopist/mL See scanned report Hepatitis A IgM Ab Miscellaneous Test Flexitest 1 H Blood Type Antibody Screen Antibody Identification Direct Antiglob Test JYOTI, Poly Interpret Crossmatch Pre-Trans JYOTI Pre-Trans JYOTI Poly Post-Trans Blood Type Post-Trans JYOTI Post-Trans JYOTI Poly 08/27/16 08/27/16 08/27/16 07:50 08:20 08:20 WBC RBC Hgb Hct MCV MCH MCHC RDW Plt Count Add Manual Diff Total Counted Seg Neutrophils % Seg Neuts % (Manual) Band Neutrophils % Lymphocytes % (Manual) Reactive Lymphs % (Man) Monocytes % (Manual) Eosinophils % (Manual) Basophils % (Manual) Metamyelocytes % Myelocytes % Promyelocytes % Blast Cells % Nucleated RBC % Seg Neutrophils # Man Band Neutrophils # Lymphocytes # (Manual) Abs React Lymphs (Man) Monocytes # (Manual) Eosinophils # (Manual) Basophils # (Manual) Metamyelocytes # Myelocytes # Promyelocytes # Blast Cells # WBC Morphology Hypersegmented Neuts Hyposegmented Neuts Hypogranular Neuts Smudge Cells Toxic Granulation Toxic Vacuolation Dohle Bodies Pelger-Huet Anomaly [place] Rods Platelet Estimate Clumped Platelets Plt Clumps, EDTA Large Platelets Giant Platelets Platelet Satelliting Plt Morphology Comment RBC Morphology Dimorphic RBCs Polychromasia Hypochromasia Poikilocytosis Anisocytosis Microcytosis Macrocytosis Spherocytes Pappenheimer Bodies Sickle Cells Target Cells Tear Drop Cells Ovalocytes Helmet Cells [place] Bodies [place] Cells Bite Cells Crenated Cell Elliptocytes Acanthocytes (Spur) Rouleaux Hemoglobin C Crystals Schistocytes Malaria parasites Percent Retic Daljit Bodies Hem Pathologist Commnt PT INR Sodium Potassium Chloride Carbon Dioxide Anion Gap BUN Creatinine Estimated GFR BUN/Creatinine Ratio Glucose POC Glucose 141 H Calcium Total Bilirubin AST ALT Alkaline Phosphatase Ammonia Lactate Dehydrogenase NT-Pro-B Natriuret Pep Total Protein Albumin Albumin/Globulin Ratio Vitamin B12 Folate Urine Color Urine Turbidity Urine pH Ur Specific [place] Urine Protein Urine Glucose (UA) Urine Ketones Urine Blood Urine Nitrite Urine Bilirubin Urine Ictotest Urine Urobilinogen Ur Leukocyte Esterase Urine WBC (Auto) Urine RBC (Auto) U Epithel Cells (Auto) Granular Casts Urine Mucus CMV DNA PCR log surgical endoscopist/mL Hepatitis A IgM Ab Miscellaneous Test Blood Type O NEGATIVE Antibody Screen Positive Antibody Identification Anti-D (Passively Aquired) Direct Antiglob Test Negative JYOTI, Poly Interpret Negative Crossmatch See Detail Pre-Trans JYOTI Pre-Trans JYOTI Poly Post-Trans Blood Type Post-Trans JYOTI Post-Trans JYOTI Poly 08/27/16 08/27/16 08/27/16 08:40 08:40 09:55 WBC RBC Hgb 6.1 L Hct 18.4 L* MCV MCH MCHC RDW Plt Count Add Manual Diff Total Counted Seg Neutrophils % Seg Neuts % (Manual) Band Neutrophils % Lymphocytes % (Manual) Reactive Lymphs % (Man) Monocytes % (Manual) Eosinophils % (Manual) Basophils % (Manual) Metamyelocytes % Myelocytes % Promyelocytes % Blast Cells % Nucleated RBC % Seg Neutrophils # Man Band Neutrophils # Lymphocytes # (Manual) Abs React Lymphs (Man) Monocytes # (Manual) Eosinophils # (Manual) Basophils # (Manual) Metamyelocytes # Myelocytes # Promyelocytes # Blast Cells # WBC Morphology Hypersegmented Neuts Hyposegmented Neuts Hypogranular Neuts Smudge Cells Toxic Granulation Toxic Vacuolation Dohle Bodies Pelger-Huet Anomaly [place] Rods Platelet Estimate Clumped Platelets Plt Clumps, EDTA Large Platelets Giant Platelets Platelet Satelliting Plt Morphology Comment RBC Morphology Dimorphic RBCs Polychromasia Hypochromasia Poikilocytosis Anisocytosis Microcytosis Macrocytosis Spherocytes Pappenheimer Bodies Sickle Cells Target Cells Tear Drop Cells Ovalocytes Helmet Cells [place] Bodies [place] Cells Bite Cells Crenated Cell Elliptocytes Acanthocytes (Spur) Rouleaux Hemoglobin C Crystals Schistocytes Malaria parasites Percent Retic Daljit Bodies Hem Pathologist Commnt PT INR Sodium Potassium Chloride Carbon Dioxide Anion Gap BUN Creatinine Estimated GFR BUN/Creatinine Ratio Glucose POC Glucose 133 H Calcium Total Bilirubin AST ALT Alkaline Phosphatase Ammonia Lactate Dehydrogenase 844 H NT-Pro-B Natriuret Pep Total Protein Albumin Albumin/Globulin Ratio Vitamin B12 Folate Urine Color Urine Turbidity Urine pH Ur Specific [place] Urine Protein Urine Glucose (UA) Urine Ketones Urine Blood Urine Nitrite Urine Bilirubin Urine Ictotest Urine Urobilinogen Ur Leukocyte Esterase Urine WBC (Auto) Urine RBC (Auto) U Epithel Cells (Auto) Granular Casts Urine Mucus CMV DNA PCR log surgical endoscopist/mL Hepatitis A IgM Ab Miscellaneous Test Blood Type Antibody Screen Antibody Identification Direct Antiglob Test JYOTI, Poly Interpret Crossmatch Pre-Trans JYOTI Pre-Trans JYOTI Poly Post-Trans Blood Type Post-Trans JYOTI Post-Trans JYOTI Poly 08/27/16 08/27/16 08/27/16 11:15 11:15 11:15 WBC RBC Hgb Hct MCV MCH MCHC RDW Plt Count Add Manual Diff Total Counted Seg Neutrophils % Seg Neuts % (Manual) Band Neutrophils % Lymphocytes % (Manual) Reactive Lymphs % (Man) Monocytes % (Manual) Eosinophils % (Manual) Basophils % (Manual) Metamyelocytes % Myelocytes % Promyelocytes % Blast Cells % Nucleated RBC % Seg Neutrophils # Man Band Neutrophils # Lymphocytes # (Manual) Abs React Lymphs (Man) Monocytes # (Manual) Eosinophils # (Manual) Basophils # (Manual) Metamyelocytes # Myelocytes # Promyelocytes # Blast Cells # WBC Morphology Hypersegmented Neuts Hyposegmented Neuts Hypogranular Neuts Smudge Cells Toxic Granulation Toxic Vacuolation Dohle Bodies Pelger-Huet Anomaly [place] Rods Platelet Estimate Clumped Platelets Plt Clumps, EDTA Large Platelets Giant Platelets Platelet Satelliting Plt Morphology Comment RBC Morphology Dimorphic RBCs Polychromasia Hypochromasia Poikilocytosis Anisocytosis Microcytosis Macrocytosis Spherocytes Pappenheimer Bodies Sickle Cells Target Cells Tear Drop Cells Ovalocytes Helmet Cells [place] Bodies [place] Rings [place] Cells Bite Cells Crenated Cell Elliptocytes Acanthocytes (Spur) Rouleaux Hemoglobin C Crystals Schistocytes Malaria parasites Percent Retic 6.59 H Daljit Bodies Hem Pathologist Commnt PT 17.2 H INR 1.41 H Sodium Potassium Chloride Carbon Dioxide Anion Gap BUN Creatinine Estimated GFR BUN/Creatinine Ratio Glucose POC Glucose Calcium Total Bilirubin AST ALT Alkaline Phosphatase Ammonia Lactate Dehydrogenase NT-Pro-B Natriuret Pep Total Protein Albumin Albumin/Globulin Ratio Vitamin B12 > 2000 H Folate Urine Color Urine Turbidity Urine pH Ur Specific [place] Urine Protein Urine Glucose (UA) Urine Ketones Urine Blood Urine Nitrite Urine Bilirubin Urine Ictotest Urine Urobilinogen Ur Leukocyte Esterase Urine WBC (Auto) Urine RBC (Auto) U Epithel Cells (Auto) Granular Casts Urine Mucus CMV DNA PCR log surgical endoscopist/mL Hepatitis A IgM Ab Miscellaneous Test Blood Type Antibody Screen Antibody Identification Direct Antiglob Test JYOTI, Poly Interpret Crossmatch Pre-Trans JYOTI Pre-Trans JYOTI Poly Post-Trans Blood Type Post-Trans JYOTI Post-Trans JYOTI Poly 08/27/16 08/27/16 08/27/16 11:15 11:15 11:15 WBC RBC Hgb Hct MCV MCH MCHC RDW Plt Count Add Manual Diff Total Counted Seg Neutrophils % Seg Neuts % (Manual) Band Neutrophils % Lymphocytes % (Manual) Reactive Lymphs % (Man) Monocytes % (Manual) Eosinophils % (Manual) Basophils % (Manual) Metamyelocytes % Myelocytes % Promyelocytes % Blast Cells % Nucleated RBC % Seg Neutrophils # Man Band Neutrophils # Lymphocytes # (Manual) Abs React Lymphs (Man) Monocytes # (Manual) Eosinophils # (Manual) Basophils # (Manual) Metamyelocytes # Myelocytes # Promyelocytes # Blast Cells # WBC Morphology Hypersegmented Neuts Hyposegmented Neuts Hypogranular Neuts Smudge Cells Toxic Granulation Toxic Vacuolation Dohle Bodies Pelger-Huet Anomaly [place] Rods Platelet Estimate Clumped Platelets Plt Clumps, EDTA Large Platelets Giant Platelets Platelet Satelliting Plt Morphology Comment RBC Morphology Dimorphic RBCs Polychromasia Hypochromasia Poikilocytosis Anisocytosis Microcytosis Macrocytosis Spherocytes Pappenheimer Bodies Sickle Cells Target Cells Tear Drop Cells Ovalocytes Helmet Cells [place] Bodies [place] Cells Bite Cells Crenated Cell Elliptocytes Acanthocytes (Spur) Rouleaux Hemoglobin C Crystals Schistocytes Malaria parasites Percent Retic Daljit Bodies Hem Pathologist Commnt PT INR Sodium Potassium Chloride Carbon Dioxide Anion Gap BUN Creatinine Estimated GFR BUN/Creatinine Ratio Glucose POC Glucose Calcium Total Bilirubin AST ALT Alkaline Phosphatase Ammonia 53.0 Lactate Dehydrogenase NT-Pro-B Natriuret Pep Total Protein Albumin Albumin/Globulin Ratio Vitamin B12 Folate 10.54 Urine Color Urine Turbidity Urine pH Ur Specific [place] Urine Protein Urine Glucose (UA) Urine Ketones Urine Blood Urine Nitrite Urine Bilirubin Urine Ictotest Urine Urobilinogen Ur Leukocyte Esterase Urine WBC (Auto) Urine RBC (Auto) U Epithel Cells (Auto) Granular Casts Urine Mucus CMV DNA PCR log surgical endoscopist/mL Hepatitis A IgM Ab -1 Miscellaneous Test Blood Type Antibody Screen Antibody Identification Direct Antiglob Test JYOTI, Poly Interpret Crossmatch Pre-Trans JYOTI Pre-Trans JYOTI Poly Post-Trans Blood Type Post-Trans JYOTI Post-Trans JYOTI Poly 08/27/16 08/27/16 08/27/16 11:59 14:06 15:20 WBC RBC Hgb Hct MCV MCH MCHC RDW Plt Count Add Manual Diff Total Counted Seg Neutrophils % Seg Neuts % (Manual) Band Neutrophils % Lymphocytes % (Manual) Reactive Lymphs % (Man) Monocytes % (Manual) Eosinophils % (Manual) Basophils % (Manual) Metamyelocytes % Myelocytes % Promyelocytes % Blast Cells % Nucleated RBC % Seg Neutrophils # Man Band Neutrophils # Lymphocytes # (Manual) Abs React Lymphs (Man) Monocytes # (Manual) Eosinophils # (Manual) Basophils # (Manual) Metamyelocytes # Myelocytes # Promyelocytes # Blast Cells # WBC Morphology Hypersegmented Neuts Hyposegmented Neuts Hypogranular Neuts Smudge Cells Toxic Granulation Toxic Vacuolation Dohle Bodies Pelger-Huet Anomaly [place] Rods Platelet Estimate Clumped Platelets Plt Clumps, EDTA Large Platelets Giant Platelets Platelet Satelliting Plt Morphology Comment RBC Morphology Dimorphic RBCs Polychromasia Hypochromasia Poikilocytosis Anisocytosis Microcytosis Macrocytosis Spherocytes Pappenheimer Bodies Sickle Cells Target Cells Tear Drop Cells Ovalocytes Helmet Cells [place] Bodies [place] Cells Bite Cells Crenated Cell Elliptocytes Acanthocytes (Spur) Rouleaux Hemoglobin C Crystals Schistocytes Malaria parasites Percent Retic Daljit Bodies Hem Pathologist Commnt PT INR Sodium Potassium Chloride Carbon Dioxide Anion Gap BUN Creatinine Estimated GFR BUN/Creatinine Ratio Glucose POC Glucose 129 H 148 H Calcium Total Bilirubin AST ALT Alkaline Phosphatase Ammonia Lactate Dehydrogenase NT-Pro-B Natriuret Pep Total Protein Albumin Albumin/Globulin Ratio Vitamin B12 Folate Urine Color Urine Turbidity Urine pH Ur Specific [place] Urine Protein Urine Glucose (UA) Urine Ketones Urine Blood Urine Nitrite Urine Bilirubin Urine Ictotest Urine Urobilinogen Ur Leukocyte Esterase Urine WBC (Auto) Urine RBC (Auto) U Epithel Cells (Auto) Granular Casts Urine Mucus CMV DNA PCR log surgical endoscopist/mL Hepatitis A IgM Ab Miscellaneous Test Blood Type Antibody Screen Antibody Identification Direct Antiglob Test JYOTI, Poly Interpret Crossmatch Pre-Trans JYOTI Negative Pre-Trans JYOTI Poly Negative Post-Trans Blood Type O negative Post-Trans JYOTI Negative Post-Trans JYOTI Poly Negative 08/27/16 08/27/16 08/27/16 15:20 16:23 16:30 WBC RBC Hgb Hct MCV MCH MCHC RDW Plt Count Add Manual Diff Total Counted Seg Neutrophils % Seg Neuts % (Manual) Band Neutrophils % Lymphocytes % (Manual) Reactive Lymphs % (Man) Monocytes % (Manual) Eosinophils % (Manual) Basophils % (Manual) Metamyelocytes % Myelocytes % Promyelocytes % Blast Cells % Nucleated RBC % Seg Neutrophils # Man Band Neutrophils # Lymphocytes # (Manual) Abs React Lymphs (Man) Monocytes # (Manual) Eosinophils # (Manual) Basophils # (Manual) Metamyelocytes # Myelocytes # Promyelocytes # Blast Cells # WBC Morphology Hypersegmented Neuts Hyposegmented Neuts Hypogranular Neuts Smudge Cells Toxic Granulation Toxic Vacuolation Dohle Bodies Pelger-Huet Anomaly [place] Rods Platelet Estimate Clumped Platelets Plt Clumps, EDTA Large Platelets Giant Platelets Platelet Satelliting Plt Morphology Comment RBC Morphology Dimorphic RBCs Polychromasia Hypochromasia Poikilocytosis Anisocytosis Microcytosis Macrocytosis Spherocytes Pappenheimer Bodies Sickle Cells Target Cells Tear Drop Cells Ovalocytes Helmet Cells [place] Bodies [place] Rings [place] Cells Bite Cells Crenated Cell Elliptocytes Acanthocytes (Spur) Rouleaux Hemoglobin C Crystals Schistocytes Malaria parasites Percent Retic Daljit Bodies Hem Pathologist Commnt PT INR Sodium Potassium Chloride Carbon Dioxide Anion Gap BUN Creatinine Estimated GFR BUN/Creatinine Ratio Glucose POC Glucose 111 H Calcium Total Bilirubin AST ALT Alkaline Phosphatase Ammonia Lactate Dehydrogenase NT-Pro-B Natriuret Pep 241.0 Total Protein Albumin Albumin/Globulin Ratio Vitamin B12 Folate Urine Color [place] Urine Turbidity Clear Urine pH 6.0 Ur Specific [place] 1.018 Urine Protein 30 mg/dl Urine Glucose (UA) Neg Urine Ketones Neg Urine Blood Mod Urine Nitrite Neg Urine Bilirubin Mod Urine Ictotest Positive Urine Urobilinogen 4.0 Ur Leukocyte Esterase Neg Urine WBC (Auto) 10.0 H Urine RBC (Auto) 7.0 U Epithel Cells (Auto) < 1.0 Granular Casts 4 Urine Mucus Few CMV DNA PCR log surgical endoscopist/mL Hepatitis A IgM Ab Miscellaneous Test Blood Type Antibody Screen Antibody Identification Direct Antiglob Test JYOTI, Poly Interpret Crossmatch Pre-Trans JYOTI Pre-Trans JYOTI Poly Post-Trans Blood Type Post-Trans JYOTI Post-Trans JYOTI Poly 08/27/16 08/27/16 08/27/16 19:35 19:46 21:36 WBC 26.5 H RBC 2.19 L Hgb 6.6 L Hct 20.1 L MCV 92 MCH 30 MCHC 33 RDW 15.9 H Plt Count 78 L Add Manual Diff Total Counted Seg Neutrophils % Seg Neuts % (Manual) Band Neutrophils % Lymphocytes % (Manual) Reactive Lymphs % (Man) Monocytes % (Manual) Eosinophils % (Manual) Basophils % (Manual) Metamyelocytes % Myelocytes % Promyelocytes % Blast Cells % Nucleated RBC % Seg Neutrophils # Man Band Neutrophils # Lymphocytes # (Manual) Abs React Lymphs (Man) Monocytes # (Manual) Eosinophils # (Manual) Basophils # (Manual) Metamyelocytes # Myelocytes # Promyelocytes # Blast Cells # WBC Morphology Hypersegmented Neuts Hyposegmented Neuts Hypogranular Neuts Smudge Cells Toxic Granulation Toxic Vacuolation Dohle Bodies Pelger-Huet Anomaly [place] Rods Platelet Estimate Clumped Platelets Plt Clumps, EDTA Large Platelets Giant Platelets Platelet Satelliting Plt Morphology Comment RBC Morphology Dimorphic RBCs Polychromasia Hypochromasia Poikilocytosis Anisocytosis Microcytosis Macrocytosis Spherocytes Pappenheimer Bodies Sickle Cells Target Cells Tear Drop Cells Ovalocytes Helmet Cells [place] Bodies [place] Cells Bite Cells Crenated Cell Elliptocytes Acanthocytes (Spur) Rouleaux Hemoglobin C Crystals Schistocytes Malaria parasites Percent Retic Daljit Bodies Hem Pathologist Commnt PT INR Sodium Potassium Chloride Carbon Dioxide Anion Gap BUN Creatinine Estimated GFR BUN/Creatinine Ratio Glucose POC Glucose 108 H 129 H Calcium Total Bilirubin AST ALT Alkaline Phosphatase Ammonia Lactate Dehydrogenase NT-Pro-B Natriuret Pep Total Protein Albumin Albumin/Globulin Ratio Vitamin B12 Folate Urine Color Urine Turbidity Urine pH Ur Specific [place] Urine Protein Urine Glucose (UA) Urine Ketones Urine Blood Urine Nitrite Urine Bilirubin Urine Ictotest Urine Urobilinogen Ur Leukocyte Esterase Urine WBC (Auto) Urine RBC (Auto) U Epithel Cells (Auto) Granular Casts Urine Mucus CMV DNA PCR log surgical endoscopist/mL Hepatitis A IgM Ab Miscellaneous Test Blood Type Antibody Screen Antibody Identification Direct Antiglob Test JYOTI, Poly Interpret Crossmatch Pre-Trans JYOTI Pre-Trans JYOTI Poly Post-Trans Blood Type Post-Trans JYOTI Post-Trans JYOTI Poly 08/28/16 08/28/16 08/28/16 00:18 02:22 05:30 WBC RBC Hgb Hct MCV MCH MCHC RDW Plt Count Add Manual Diff Total Counted Seg Neutrophils % Seg Neuts % (Manual) Band Neutrophils % Lymphocytes % (Manual) Reactive Lymphs % (Man) Monocytes % (Manual) Eosinophils % (Manual) Basophils % (Manual) Metamyelocytes % Myelocytes % Promyelocytes % Blast Cells % Nucleated RBC % Seg Neutrophils # Man Band Neutrophils # Lymphocytes # (Manual) Abs React Lymphs (Man) Monocytes # (Manual) Eosinophils # (Manual) Basophils # (Manual) Metamyelocytes # Myelocytes # Promyelocytes # Blast Cells # WBC Morphology Hypersegmented Neuts Hyposegmented Neuts Hypogranular Neuts Smudge Cells Toxic Granulation Toxic Vacuolation Dohle Bodies Pelger-Huet Anomaly [place] Rods Platelet Estimate Clumped Platelets Plt Clumps, EDTA Large Platelets Giant Platelets Platelet Satelliting Plt Morphology Comment RBC Morphology Dimorphic RBCs Polychromasia Hypochromasia Poikilocytosis Anisocytosis Microcytosis Macrocytosis Spherocytes Pappenheimer Bodies Sickle Cells Target Cells Tear Drop Cells Ovalocytes Helmet Cells [place] Bodies [place] Cells Bite Cells Crenated Cell Elliptocytes Acanthocytes (Spur) Rouleaux Hemoglobin C Crystals Schistocytes Malaria parasites Percent Retic Daljit Bodies Hem Pathologist Commnt PT 19.0 H INR 1.60 H Sodium Potassium Chloride Carbon Dioxide Anion Gap BUN Creatinine Estimated GFR BUN/Creatinine Ratio Glucose POC Glucose 114 H 121 H Calcium Total Bilirubin AST ALT Alkaline Phosphatase Ammonia Lactate Dehydrogenase NT-Pro-B Natriuret Pep Total Protein Albumin Albumin/Globulin Ratio Vitamin B12 Folate Urine Color Urine Turbidity Urine pH Ur Specific [place] Urine Protein Urine Glucose (UA) Urine Ketones Urine Blood Urine Nitrite Urine Bilirubin Urine Ictotest Urine Urobilinogen Ur Leukocyte Esterase Urine WBC (Auto) Urine RBC (Auto) U Epithel Cells (Auto) Granular Casts Urine Mucus CMV DNA PCR log surgical endoscopist/mL Hepatitis A IgM Ab Miscellaneous Test Blood Type Antibody Screen Antibody Identification Direct Antiglob Test JYOTI, Poly Interpret Crossmatch Pre-Trans JYOTI Pre-Trans JYOTI Poly Post-Trans Blood Type Post-Trans JYOTI Post-Trans JYOTI Poly 08/28/16 08/28/16 08/28/16 05:30 05:30 06:03 WBC 29.9 H RBC 2.54 L Hgb 8.0 L Hct 23.5 L MCV 93 MCH 32 MCHC 34 RDW 15.4 H Plt Count 49 L Add Manual Diff Complete Total Counted 200 Seg Neutrophils % Sheet Writer Seg Neuts % (Manual) 91.5 H Band Neutrophils % 2.0 Lymphocytes % (Manual) 2.0 L Reactive Lymphs % (Man) 0 Monocytes % (Manual) 3.0 Eosinophils % (Manual) 0 Basophils % (Manual) 0 Metamyelocytes % 1.5 Myelocytes % 0 Promyelocytes % 0 Blast Cells % 0 Nucleated RBC % 12.0 H Seg Neutrophils # Man 27.4 H Band Neutrophils # 0.6 Lymphocytes # (Manual) 0.6 L Abs React Lymphs (Man) 0.0 Monocytes # (Manual) 0.9 H Eosinophils # (Manual) 0.0 Basophils # (Manual) 0.0 Metamyelocytes # 0.4 Myelocytes # 0.0 Promyelocytes # 0.0 Blast Cells # 0.0 WBC Morphology Not Reportable Hypersegmented Neuts Not Reportable Hyposegmented Neuts Not Reportable Hypogranular Neuts Not Reportable Smudge Cells Not Reportable Toxic Granulation Not Reportable Toxic Vacuolation Not Reportable Dohle Bodies Not Reportable Pelger-Huet Anomaly Not Reportable [place] Rods Not Reportable Platelet Estimate Appears decreased Clumped Platelets Not Reportable Plt Clumps, EDTA Not Reportable Large Platelets Not Reportable Giant Platelets Not Reportable Platelet Satelliting Not Reportable Plt Morphology Comment Not Reportable RBC Morphology Not Reportable Dimorphic RBCs Not Reportable Polychromasia 1+ Hypochromasia Not Reportable Poikilocytosis Not Reportable Anisocytosis 2+ Microcytosis Few Macrocytosis Not Reportable Spherocytes Not Reportable Pappenheimer Bodies Not Reportable Sickle Cells Not Reportable Target Cells Not Reportable Tear Drop Cells Not Reportable Ovalocytes Few Helmet Cells Not Reportable Whittaker-[place] Bodies Not Reportable [place] Rings Not Reportable [place] Cells Not Reportable Bite Cells Not Reportable Crenated Cell Not Reportable Elliptocytes Not Reportable Acanthocytes (Spur) Not Reportable Rouleaux Not Reportable Hemoglobin C Crystals Not Reportable Schistocytes Not Reportable Malaria parasites Not Reportable Percent Retic Daljit Bodies Not Reportable Hem Pathologist Commnt No PT INR Sodium 133 L Potassium 4.5 Chloride 101.4 Carbon Dioxide 19 L Anion Gap 17 BUN 47 H Creatinine 0.8 Estimated GFR > 60 BUN/Creatinine Ratio 58.75 Glucose 130 H POC Glucose 142 H Calcium 6.7 L Total Bilirubin 25.3 H AST 170 H ALT 48 Alkaline Phosphatase 252 H Ammonia Lactate Dehydrogenase NT-Pro-B Natriuret Pep Total Protein 4.2 L Albumin 1.5 L Albumin/Globulin Ratio 0.6 Vitamin B12 Folate Urine Color Urine Turbidity Urine pH Ur Specific [place] Urine Protein Urine Glucose (UA) Urine Ketones Urine Blood Urine Nitrite Urine Bilirubin Urine Ictotest Urine Urobilinogen Ur Leukocyte Esterase Urine WBC (Auto) Urine RBC (Auto) U Epithel Cells (Auto) Granular Casts Urine Mucus CMV DNA PCR log surgical endoscopist/mL Hepatitis A IgM Ab Miscellaneous Test Blood Type Antibody Screen Antibody Identification Direct Antiglob Test JYOTI, Poly Interpret Crossmatch Pre-Trans JYOTI Pre-Trans JYOTI Poly Post-Trans Blood Type Post-Trans JYOTI Post-Trans JYOTI Poly 08/28/16 07:55 WBC RBC Hgb Hct MCV MCH MCHC RDW Plt Count Add Manual Diff Total Counted Seg Neutrophils % Seg Neuts % (Manual) Band Neutrophils % Lymphocytes % (Manual) Reactive Lymphs % (Man) Monocytes % (Manual) Eosinophils % (Manual) Basophils % (Manual) Metamyelocytes % Myelocytes % Promyelocytes % Blast Cells % Nucleated RBC % Seg Neutrophils # Man Band Neutrophils # Lymphocytes # (Manual) Abs React Lymphs (Man) Monocytes # (Manual) Eosinophils # (Manual) Basophils # (Manual) Metamyelocytes # Myelocytes # Promyelocytes # Blast Cells # WBC Morphology Hypersegmented Neuts Hyposegmented Neuts Hypogranular Neuts Smudge Cells Toxic Granulation Toxic Vacuolation Dohle Bodies Pelger-Huet Anomaly Alaina Rods Platelet Estimate Clumped Platelets Plt Clumps, EDTA Large Platelets Giant Platelets Platelet Satelliting Plt Morphology Comment RBC Morphology Dimorphic RBCs Polychromasia Hypochromasia Poikilocytosis Anisocytosis Microcytosis Macrocytosis Spherocytes Pappenheimer Bodies Sickle Cells Target Cells Tear Drop Cells Ovalocytes Helmet Cells Wh[place]aker-[place] Bodies [place] Rings [place] Cells Bite Cells Crenated Cell Elliptocytes Acanthocytes (Spur) Rouleaux Hemoglobin C Crystals Schistocytes Malaria parasites Percent Retic Daljit Bodies Hem Pathologist Commnt PT INR Sodium Potassium Chloride Carbon Dioxide Anion Gap BUN Creatinine Estimated GFR BUN/Creatinine Ratio Glucose POC Glucose 141 H Calcium Total Bilirubin AST ALT Alkaline Phosphatase Ammonia Lactate Dehydrogenase NT-Pro-B Natriuret Pep Total Protein Albumin Albumin/Globulin Ratio Vitamin B12 Folate Urine Color Urine Turbidity Urine pH Ur Specific [place] Urine Protein Urine Glucose (UA) Urine Ketones Urine Blood Urine Nitrite Urine Bilirubin Urine Ictotest Urine Urobilinogen Ur Leukocyte Esterase Urine WBC (Auto) Urine RBC (Auto) U Epithel Cells (Auto) Granular Casts Urine Mucus CMV DNA PCR log surgical endoscopist/mL Hepatitis A IgM Ab Miscellaneous Test Blood Type Antibody Screen Antibody Identification Direct Antiglob Test JYOTI, Poly Interpret Crossmatch Pre-Trans JYOTI Pre-Trans JYOTI Poly Post-Trans Blood Type Post-Trans JYOTI Post-Trans JYOTI Poly
--- NOTE | 2016-08-28 09:11 | Ultrasound Report ---
ULTRASOUND ABDOMEN INDICATION: Jaundice. Recent 5 days ago. COMPARISON: None similar. FINDINGS: Abdominal sonography somewhat limited due to patient's body habitus and patient cooperation, though demonstrates minimal ascites, more so perihepatic and slight perisplenic. Minimal pericholecystic lucency also presumed related to ascites versus gallbladder wall edema/fluid or even secondary to hypoproteinemia. Gall bladder wall thickness though estimated at 2.7 mm. Mild gallbladder sludge suspected without definite gallstones. Common bile duct is 4 mm. Grossly normal hepatic contours without focal suspicious lesion or biliary dilatation. Slight diffuse hepatic echogenic coarsening though not excluded. Homogenous spleen, approximately 11.4 cm in length. Imaged pancreatic neck and body unremarkable, though remainder obscured due to bowel gas. Nonaneurysmal abdominal aorta. IVC not well seen. Right kidney measures 10 x 4.2 x 5.3 cm with cortical thickness of 1.2 cm. No significant hydronephrosis, though slight intrarenal collecting system fullness on the right possible. Left kidney measures 9.7 x 4.5 x 4.9 cm with cortical thickness of 1.6 cm. CONCLUSION: 1. Slight pericholecystic fluid/lucency may be related to ascites with gallbladder wall thickness estimated at 2.7 mm, as detailed above. Small gallbladder sludge also noted without evidence of gallstones. Subtle acute cholecystitis, if suspected, may be correlated for clinically. 2. Few other incidental findings, including slightly coarse liver, as above. Thank you for the opportunity to participate in this patient's care.
--- NOTE | 2016-08-28 09:21 | XRay Report ---
Single view chest: Compared to 08/27/16. History: Post transfusion reaction. Findings: Borderline cardiomegaly. Trachea is midline. No consolidation, pneumothorax or pleural effusion. Tip of right central line in lower superior vena cava. Impression: No acute cardiopulmonary findings.
--- NOTE | 2016-08-28 10:05 | Consultation ---
History of Present Illness - Reason for Consult Consult date: 08/28/16 sepsis - History of Present Illness Ms Agarwal is a 41-year-old female without known chronic medical problems who presents for admission to on 08/22/16 with flulike symptoms in association with 31.2 weeks IUP. She developed evidence of non-reassuring FHR requiring emergent low segment transverse and is now seen with possible sepsis in association with possible HELLP syndrome. History is taken from the patient's daughter who speaks and understands Estonian well. Ms Agarwal had been having regular clinic follow. Her was uncomplicated other than a history of hyperemesis as well as early first trimester vaginal bleeding. The patient developed flulike symptoms such that she did receive, 08/22 initiation of Tamiflu. Influenza a and B antigens for subsequent negative and this therapy was stopped. She has gone on to develop evidence of poor progression such that she required emergent surgery as described. She was noted with intraoperative hemorrhage as well as uterine atony. Admission workup included on 08/22 a CBC with white count 13.2, hemoglobin 11.3, hematocrit 34.7 and platelet count 115,000. Lab data on 08/23 included a BUN of 18 with creatinine 3.1. Potassium was 5.9. Blood sugar 39. AST was 676, ALP 470, alkaline phosphatase 394 and total bilirubin 4.3 with direct reacting bilirubin of 3.9. LDH was 38. Lactate level 10. Health screening labs included from 08/22 a nonreactive RPR. Hepatitis A B and C profile was negative. Toxoplasma IgM was negative. Rubella IgG was positive. HIV was negative. Parvovirus B19 showed positive IgG but negative IgM. Currently the patient complains of being cold. She has no headache, sore throat , chest pain or cough. The patient has had problems with nausea. She denies any diarrhea or dysuria. She is noted with stable vital signs with low-grade fever to approximately 99. Recent 08/27 studies now include a CBC with white count 26.5, hemoglobin 6.6 and platelet count 78,000. BUN and creatinine is 31 and 1.1 respectively. Liver profile includes an AST of 73, ALT 41, alkaline phosphatase of 215, LDH of 844, and total bilirubin of 9.7. Ammonia level is 53. PT is 17.2 with INR 1.41. Urinalysis showed minimal pyuria with 10 WBCs. Abdominal ultrasound shows slight pericholecystic fluid with gallbladder wall thickening of 2.7. Common bile duct measurements are normal. Culture data otherwise include negative blood cultures from 08/22 and 08/26. Urine culture on 08/25 is negative. Chest x-ray from 08/28 now shows no acute findings. The patient did receive Zosyn 2.25 g IV every 6 hours between 08/23 and 08/25. She has been dosed now with Levaquin 750 mg daily. The patient received on Solu-Medrol 20 mg 1 dose. Currently the patient has received 4 units of packed red blood cells and 2 units of fresh frozen plasma. As stated the patient has no other chronic medical problems. She has not traveled. No other family members are known ill. HIV and health maintenance profile is otherwise unremarkable. Past History Past Medical History: No medical history Past Surgical History: No surgical history Social history: no significant social history, Family history: no significant family history Medications and Allergies Allergies Allergy/AdvReac Type Severity Reaction Status Date / Time No Known Allergies Allergy Verified 08/22/16 15:18 Home Medications Medication Instructions Recorded Confirmed Last Taken Type Acetaminophen [Shake That Ache] 500 mg PO Q6HR 08/22/16 08/22/16 08/22/16 09:00 History 1 Mucinex Dm ER 1,200-60 mg Tab 1 tab PO BID 08/22/16 08/22/16 08/22/16 09:00 History 1 Oseltamivir [Tamiflu] 75 mg PO BID 08/22/16 08/22/16 08/22/16 09:00 History 1 Pnv95/Ferrous Fumarate/FA 1 each PO DAILY 08/22/16 08/22/16 08/22/16 09:00 History [Prenavite Tablet] 1 Ranitidine HCl [Acid Control] 150 mg PO BID 08/22/16 08/22/16 08/22/16 09:00 History 1 Active Meds: Active Medications Acetaminophen (Tylenol) 650 mg PO Q4H PRN PRN Reason: Fever >100.5/MARCUS Acetaminophen/Hydrocodone Bitart ([place] 5/325) 1 each PO Q6H PRN PRN Reason: Pain, Moderate (4-6) Last Admin: 08/24/16 19:13 Dose: 1 each Bisacodyl (Dulcolax) 10 mg MN QDAY PRN PRN Reason: Constipation Dextrose (D5w) 1,000 mls @ 50 mls/hr IV DIRECT [facility] Last Admin: 08/27/16 11:45 Dose: 75 mls/hr Levofloxacin/Dextrose (Levaquin 750mg/150ml) 150 mls @ 100 mls/hr IV Q24HR VANESSA PRN Reason: Protocol Ibuprofen (Motrin) 800 mg PO Q6H PRN PRN Reason: Pain, Mild (1-3) Labetalol HCl (Normodyne) 100 mg PO BID [facility] Last Admin: 08/28/16 04:40 Dose: Not Given Morphine Sulfate (Morphine) 2 mg IV Q6HR PRN PRN Reason: Pain, Moderate (4-6) Last Admin: 08/27/16 19:52 Dose: 2 mg Multi-Ingredient Ointment (Lansinoh) 1 applic TP PRN PRN PRN Reason: dryness/cracking Naloxone HCl (Narcan 0.4 Mg/1 Ml) 0.1 mg IV Q2MIN PRN PRN Reason: Res Rate </= 8 or 02 SAT < 92% Last Admin: 08/23/16 04:45 Dose: 0.1 mg Ondansetron HCl (Zofran) 4 mg IV Q4H PRN PRN Reason: Nausea And Vomiting Last Admin: 08/27/16 19:53 Dose: 4 mg Oxycodone/Acetaminophen (Percocet 5/325) 1 tab PO Q6H PRN PRN Reason: Pain, Moderate (4-6) Oxycodone/Acetaminophen (Percocet 5/325) 2 tab PO Q6H PRN PRN Reason: Moder Pain unrelieved by [place] Witch Chloe/Glycerin (Tucks Pad) 1 each TP PRN PRN PRN Reason: Hemorrhoids/cleansing/soothing Physical Examination - Physical Exam Narrative exam: Marked jaundice. Anxious appearing. HEENT: Pupils are equal reactive to light and accommodation. Sclerael icterus. Oropharynx is normal with no evidence of oral candidiasis or pharyngitis. NECK: Supple. No enlargement of the thyroid gland. No significant cervical lymphadenopathy. No jugular venous distention at 30. LUNGS: Clear with slight diminished breath sounds at bases. HEART: Tachycardic. There are no murmurs, gallops, clicks or rubs heard. ABDOMEN: Soft with slight distention. Mild generalized tenderness. Liver and spleen are not palpably enlarged or tender. No palpable masses. Bowel sounds are normoactive. Ascites is not appreciated. EXTREMITIES: 2+ generalized edema. IV dressings sites are clean. SKIN: No other rash, ulcers or wounds. NEUROLOGIC: No focal findings. - Constitutional Vitals: Vital Signs Temp Pulse Resp BP Pulse Ox 98.2 F 75 18 128/77 100 08/28/16 04:16 08/28/16 08:00 08/28/16 08:00 08/28/16 08:00 08/28/16 08:00 Temperature -Last 24 Hours Temperature 98.2 F Temperature 98.2 F Temperature 98.6 F Temperature 98.6 F Temperature 98.6 F Temperature 98.9 F Temperature 99.2 F Temperature 99.2 F Temperature 99.2 F Temperature 99.2 F Temperature 99.2 F Temperature 98.9 F Temperature 97.4 F Temperature 97.4 F Temperature 98.1 F Temperature 98.1 F Results - Labs CBC & Chem 7: 08/28/16 05:30 08/28/16 05:30 Labs: Abnormal lab results 08/22/16 08/27/16 08/27/16 Range/Units 18:54 07:50 08:20 WBC (4.5-11.0) K/mm3 RBC (3.65-5.03) M/mm3 Hgb (10.1-14.3) gm/dl Hct (30.3-42.9) % RDW (13.2-15.2) % Plt Count (140-440) K/mm3 Seg Neuts % (Manual) (40.0-70.0) % Lymphocytes % (Manual) (13.4-35.0) % Nucleated RBC % (0.0-0.9) % Seg Neutrophils # Man (1.8-7.7) K/mm3 Lymphocytes # (Manual) (1.2-5.4) K/mm3 Monocytes # (Manual) (0.0-0.8) K/mm3 Percent Retic (0.78-2.58) % PT (12.2-14.9) Sec. INR (0.87-1.13) Sodium (137-145) mmol/L Carbon Dioxide (22-30) mmol/L BUN (7-17) mg/dL Glucose (65-100) mg/dL POC Glucose 141 H (70-105) Calcium (8.4-10.2) mg/dL Total Bilirubin (0.1-1.2) mg/dL AST (5-40) units/L Alkaline Phosphatase (35-129) units/L Total Protein (6.3-8.2) g/dL Albumin (3.9-5) g/dL Vitamin B12 (211-911) pg/mL Urine WBC (Auto) (0.0-6.0) /HPF Miscellaneous Test Flexitest 1 H (()) Crossmatch See Detail 08/27/16 08/27/16 08/27/16 Range/Units 09:55 11:15 11:15 WBC (4.5-11.0) K/mm3 RBC (3.65-5.03) M/mm3 Hgb (10.1-14.3) gm/dl Hct (30.3-42.9) % RDW (13.2-15.2) % Plt Count (140-440) K/mm3 Seg Neuts % (Manual) (40.0-70.0) % Lymphocytes % (Manual) (13.4-35.0) % Nucleated RBC % (0.0-0.9) % Seg Neutrophils # Man (1.8-7.7) K/mm3 Lymphocytes # (Manual) (1.2-5.4) K/mm3 Monocytes # (Manual) (0.0-0.8) K/mm3 Percent Retic 6.59 H (0.78-2.58) % PT 17.2 H (12.2-14.9) Sec. INR 1.41 H (0.87-1.13) Sodium (137-145) mmol/L Carbon Dioxide (22-30) mmol/L BUN (7-17) mg/dL Glucose (65-100) mg/dL POC Glucose 133 H (70-105) Calcium (8.4-10.2) mg/dL Total Bilirubin (0.1-1.2) mg/dL AST (5-40) units/L Alkaline Phosphatase (35-129) units/L Total Protein (6.3-8.2) g/dL Albumin (3.9-5) g/dL Vitamin B12 (211-911) pg/mL Urine WBC (Auto) (0.0-6.0) /HPF Miscellaneous Test (()) Crossmatch 08/27/16 08/27/16 08/27/16 Range/Units 11:15 11:59 14:06 WBC (4.5-11.0) K/mm3 RBC (3.65-5.03) M/mm3 Hgb (10.1-14.3) gm/dl Hct (30.3-42.9) % RDW (13.2-15.2) % Plt Count (140-440) K/mm3 Seg Neuts % (Manual) (40.0-70.0) % Lymphocytes % (Manual) (13.4-35.0) % Nucleated RBC % (0.0-0.9) % Seg Neutrophils # Man (1.8-7.7) K/mm3 Lymphocytes # (Manual) (1.2-5.4) K/mm3 Monocytes # (Manual) (0.0-0.8) K/mm3 Percent Retic (0.78-2.58) % PT (12.2-14.9) Sec. INR (0.87-1.13) Sodium (137-145) mmol/L Carbon Dioxide (22-30) mmol/L BUN (7-17) mg/dL Glucose (65-100) mg/dL POC Glucose 129 H 148 H (70-105) Calcium (8.4-10.2) mg/dL Total Bilirubin (0.1-1.2) mg/dL AST (5-40) units/L Alkaline Phosphatase (35-129) units/L Total Protein (6.3-8.2) g/dL Albumin (3.9-5) g/dL Vitamin B12 > 2000 H (211-911) pg/mL Urine WBC (Auto) (0.0-6.0) /HPF Miscellaneous Test (()) Crossmatch 08/27/16 08/27/16 08/27/16 Range/Units 15:20 16:23 19:35 WBC 26.5 H (4.5-11.0) K/mm3 RBC 2.19 L (3.65-5.03) M/mm3 Hgb 6.6 L (10.1-14.3) gm/dl Hct 20.1 L (30.3-42.9) % RDW 15.9 H (13.2-15.2) % Plt Count 78 L (140-440) K/mm3 Seg Neuts % (Manual) (40.0-70.0) % Lymphocytes % (Manual) (13.4-35.0) % Nucleated RBC % (0.0-0.9) % Seg Neutrophils # Man (1.8-7.7) K/mm3 Lymphocytes # (Manual) (1.2-5.4) K/mm3 Monocytes # (Manual) (0.0-0.8) K/mm3 Percent Retic (0.78-2.58) % PT (12.2-14.9) Sec. INR (0.87-1.13) Sodium (137-145) mmol/L Carbon Dioxide (22-30) mmol/L BUN (7-17) mg/dL Glucose (65-100) mg/dL POC Glucose 111 H (70-105) Calcium (8.4-10.2) mg/dL Total Bilirubin (0.1-1.2) mg/dL AST (5-40) units/L Alkaline Phosphatase (35-129) units/L Total Protein (6.3-8.2) g/dL Albumin (3.9-5) g/dL Vitamin B12 (211-911) pg/mL Urine WBC (Auto) 10.0 H (0.0-6.0) /HPF Miscellaneous Test (()) Crossmatch 08/27/16 08/27/16 08/28/16 Range/Units 19:46 21:36 00:18 WBC (4.5-11.0) K/mm3 RBC (3.65-5.03) M/mm3 Hgb (10.1-14.3) gm/dl Hct (30.3-42.9) % RDW (13.2-15.2) % Plt Count (140-440) K/mm3 Seg Neuts % (Manual) (40.0-70.0) % Lymphocytes % (Manual) (13.4-35.0) % Nucleated RBC % (0.0-0.9) % Seg Neutrophils # Man (1.8-7.7) K/mm3 Lymphocytes # (Manual) (1.2-5.4) K/mm3 Monocytes # (Manual) (0.0-0.8) K/mm3 Percent Retic (0.78-2.58) % PT (12.2-14.9) Sec. INR (0.87-1.13) Sodium (137-145) mmol/L Carbon Dioxide (22-30) mmol/L BUN (7-17) mg/dL Glucose (65-100) mg/dL POC Glucose 108 H 129 H 114 H (70-105) Calcium (8.4-10.2) mg/dL Total Bilirubin (0.1-1.2) mg/dL AST (5-40) units/L Alkaline Phosphatase (35-129) units/L Total Protein (6.3-8.2) g/dL Albumin (3.9-5) g/dL Vitamin B12 (211-911) pg/mL Urine WBC (Auto) (0.0-6.0) /HPF Miscellaneous Test (()) Crossmatch 08/28/16 08/28/16 08/28/16 Range/Units 02:22 05:30 05:30 WBC 29.9 H (4.5-11.0) K/mm3 RBC 2.54 L (3.65-5.03) M/mm3 Hgb 8.0 L (10.1-14.3) gm/dl Hct 23.5 L (30.3-42.9) % RDW 15.4 H (13.2-15.2) % Plt Count 49 L (140-440) K/mm3 Seg Neuts % (Manual) 91.5 H (40.0-70.0) % Lymphocytes % (Manual) 2.0 L (13.4-35.0) % Nucleated RBC % 12.0 H (0.0-0.9) % Seg Neutrophils # Man 27.4 H (1.8-7.7) K/mm3 Lymphocytes # (Manual) 0.6 L (1.2-5.4) K/mm3 Monocytes # (Manual) 0.9 H (0.0-0.8) K/mm3 Percent Retic (0.78-2.58) % PT 19.0 H (12.2-14.9) Sec. INR 1.60 H (0.87-1.13) Sodium (137-145) mmol/L Carbon Dioxide (22-30) mmol/L BUN (7-17) mg/dL Glucose (65-100) mg/dL POC Glucose 121 H (70-105) Calcium (8.4-10.2) mg/dL Total Bilirubin (0.1-1.2) mg/dL AST (5-40) units/L Alkaline Phosphatase (35-129) units/L Total Protein (6.3-8.2) g/dL Albumin (3.9-5) g/dL Vitamin B12 (211-911) pg/mL Urine WBC (Auto) (0.0-6.0) /HPF Miscellaneous Test (()) Crossmatch 08/28/16 08/28/16 08/28/16 Range/Units 05:30 06:03 07:55 WBC (4.5-11.0) K/mm3 RBC (3.65-5.03) M/mm3 Hgb (10.1-14.3) gm/dl Hct (30.3-42.9) % RDW (13.2-15.2) % Plt Count (140-440) K/mm3 Seg Neuts % (Manual) (40.0-70.0) % Lymphocytes % (Manual) (13.4-35.0) % Nucleated RBC % (0.0-0.9) % Seg Neutrophils # Man (1.8-7.7) K/mm3 Lymphocytes # (Manual) (1.2-5.4) K/mm3 Monocytes # (Manual) (0.0-0.8) K/mm3 Percent Retic (0.78-2.58) % PT (12.2-14.9) Sec. INR (0.87-1.13) Sodium 133 L (137-145) mmol/L Carbon Dioxide 19 L (22-30) mmol/L BUN 47 H (7-17) mg/dL Glucose 130 H (65-100) mg/dL POC Glucose 142 H 141 H (70-105) Calcium 6.7 L (8.4-10.2) mg/dL Total Bilirubin 25.3 H (0.1-1.2) mg/dL AST 170 H (5-40) units/L Alkaline Phosphatase 252 H (35-129) units/L Total Protein 4.2 L (6.3-8.2) g/dL Albumin 1.5 L (3.9-5) g/dL Vitamin B12 (211-911) pg/mL Urine WBC (Auto) (0.0-6.0) /HPF Miscellaneous Test (()) Crossmatch - Imaging and Cardiology Chest x-ray: image reviewed US - abdomen: report reviewed Assessment and Plan Assessment: Ms Agarwal is a 41-year-old female without known chronic medical problems who presents for admission to on 08/22/16 with flulike symptoms in association with 31.2 weeks IUP. She developed evidence of non-reassuring FHR requiring emergent low segment transverse and is now seen with possible sepsis in association with possible HELLP syndrome. Antibiotics: Levaquin 750 mg IV daily (08/28 -> Zosyn 2.25 g IV every 6 hours ( 08/23 - 08/25 ) Tamiflu ( 75 mg po 08/22) Immunosuppressants: Solu-Medrol 20 mg IV 1 ( 08/27) Health maintenance record: HIV negative Hepatitis A, B, C negative Toxoplasma IgM negative Rubella IgG positive (immune) Parvovirus B19 IgM negative, IgG positive (past exposure) Rh- Conclusions: 1. Sepsis syndrome with marked leukocytosis and acidosis - R/O aspiration - R/O UTI - R/O biliary sepsis - R/O viral syndrome 2. R/O HELLP syndrome ( hemolysis, elevated liver enzymes, thrombocytopenia) 3. Anemia - Acute/ anemia of - s/p PRBCs x 4 4. Coagulopathy secondary to above - s/p 2 units FFP 5. SHAUNA - Improved 6. s/p 32 WK IUP- s/p 08/22 Recommendations: - Suspect current findings are due to HELLP syndrome (hemolysis, elevated liver enzymes, thrombocytopenia) rather than infection. - Pending further data though will continue Levaquin and start empiric IV vancomycin. - Follow clinical parameters to include white cell count, liver profile to include fractionated bilirubin, and lactic acid level - Continue supportive care. Thank you.
[2016-08-28] MEDS: LEVAQUIN 750MG/150ML 150 ML IV SCH (10:26)
[2016-08-28] MEDS: D5W 1,000 ML IV SCH (10:29)
[2016-08-28] MEDS ORDERED: VANCOMYCIN PHARMACY TO DOSE IV SCH (11:00)
--- NOTE | 2016-08-28 11:03 | Gastroenterology Consultation ---
<ANURADHA MUSTAFA - Last Filed: 08/28/16 11:19> History of Present Illness - Reason for Consult Consult date: 08/28/16 Elevated liver enzymes Requesting physician: BRADLY RG - History of Present Illness Ms Agarwal is a 41-year-old female without known chronic medical problems who presents for admission to on 08/22/16 with flulike symptoms in association with 31.2 weeks IUP. 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 Information is obtained from patients daughter, fluent in [place]. was uncomplicated other than a history of hyperemesis as well as early first trimester vaginal bleeding. The patient developed flulike symptoms such that she did receive, 08/22 initiation of Tamiflu. Influenza a and B antigens for subsequent negative and this therapy was stopped. She is being seen by Hematology and ID. Abdominal ultrasound shows slight pericholecystic fluid with gallbladder wall thickening of 2.7. Common bile duct measurements are normal. Transaminases are improved with an increase of TB. Leukocytosis increasing. Past History Past Medical History: No medical history Past Surgical History: , Other Social history: no significant social history, Family history: no significant family history Medications and Allergies Allergies Allergy/AdvReac Type Severity Reaction Status Date / Time No Known Allergies Allergy Verified 08/22/16 15:18 Home Medications Medication Instructions Recorded Confirmed Last Taken Type Acetaminophen [Shake That Ache] 500 mg PO Q6HR 08/22/16 08/22/16 08/22/16 09:00 History 1 Mucinex Dm ER 1,200-60 mg Tab 1 tab PO BID 08/22/16 08/22/16 08/22/16 09:00 History 1 Oseltamivir [Tamiflu] 75 mg PO BID 08/22/16 08/22/16 08/22/16 09:00 History 1 Pnv95/Ferrous Fumarate/FA 1 each PO DAILY 08/22/16 08/22/16 08/22/16 09:00 History [Prenavite Tablet] 1 Ranitidine HCl [Acid Control] 150 mg PO BID 08/22/16 08/22/16 08/22/16 09:00 History 1 Active Meds: Active Medications Acetaminophen (Tylenol) 650 mg PO Q4H PRN PRN Reason: Fever >100.5/MARCUS Acetaminophen/Hydrocodone Bitart (Channing 5/325) 1 each PO Q6H PRN PRN Reason: Pain, Moderate (4-6) Last Admin: 08/24/16 19:13 Dose: 1 each Bisacodyl (Dulcolax) 10 mg ID QDAY PRN PRN Reason: Constipation Dextrose (D5w) 1,000 mls @ 50 mls/hr IV DIRECT VANESSA Last Admin: 08/28/16 10:29 Dose: 50 mls/hr Levofloxacin/Dextrose (Levaquin 750mg/150ml) 150 mls @ 100 mls/hr IV Q24HR VANESSA PRN Reason: Protocol Last Admin: 08/28/16 10:26 Dose: 100 mls/hr Ibuprofen (Motrin) 800 mg PO Q6H PRN PRN Reason: Pain, Mild (1-3) Labetalol HCl (Normodyne) 100 mg PO BID [facility] Last Admin: 08/28/16 10:26 Dose: 100 mg Morphine Sulfate (Morphine) 2 mg IV Q6HR PRN PRN Reason: Pain, Moderate (4-6) Last Admin: 08/27/16 19:52 Dose: 2 mg Multi-Ingredient Ointment (Lansinoh) 1 applic TP PRN PRN PRN Reason: dryness/cracking Naloxone HCl (Narcan 0.4 Mg/1 Ml) 0.1 mg IV Q2MIN PRN PRN Reason: Res Rate </= 8 or 02 SAT < 92% Last Admin: 08/23/16 04:45 Dose: 0.1 mg Ondansetron HCl (Zofran) 4 mg IV Q4H PRN PRN Reason: Nausea And Vomiting Last Admin: 08/27/16 19:53 Dose: 4 mg Oxycodone/Acetaminophen (Percocet 5/325) 1 tab PO Q6H PRN PRN Reason: Pain, Moderate (4-6) Oxycodone/Acetaminophen (Percocet 5/325) 2 tab PO Q6H PRN PRN Reason: Moder Pain unrelieved by Channing Witch Chloe/Glycerin (Tucks Pad) 1 each TP PRN PRN PRN Reason: Hemorrhoids/cleansing/soothing Review of Systems - Review of Systems All systems: negative Constitutional: chills, weakness Exam - Constitutional Vital Signs: Temp Pulse Resp BP Pulse Ox 98.2 F 80 18 123/64 96 08/28/16 04:16 08/28/16 10:26 08/28/16 08:00 08/28/16 10:26 08/28/16 10:05 General appearance: no acute distress - EENT Eyes: EOM intact, scleral icterus - Neck Neck: supple - Respiratory Respiratory: bilateral: CTA - Cardiovascular Rhythm: regular Heart Sounds: Present: S1 & S2 Extremities: no ischemia - Gastrointestinal General gastrointestinal: Present: soft, non-tender, normal bowel sounds - Integumentary Integumentary: Present: warm, dry, jaundice - Neurologic Neurological: alert and oriented x3 - Psychiatric Psychiatric: appropriate mood/affect - Labs CBC & Chem 7: 08/28/16 05:30 08/28/16 05:30 Lab Results: Laboratory Results - last 24 hr 08/22/16 08/23/16 08/27/16 18:54 13:03 07:50 WBC RBC Hgb Hct MCV MCH MCHC RDW Plt Count Add Manual Diff Total Counted Seg Neutrophils % Seg Neuts % (Manual) Band Neutrophils % Lymphocytes % (Manual) Reactive Lymphs % (Man) Monocytes % (Manual) Eosinophils % (Manual) Basophils % (Manual) Metamyelocytes % Myelocytes % Promyelocytes % Blast Cells % Nucleated RBC % Seg Neutrophils # Man Band Neutrophils # Lymphocytes # (Manual) Abs React Lymphs (Man) Monocytes # (Manual) Eosinophils # (Manual) Basophils # (Manual) Metamyelocytes # Myelocytes # Promyelocytes # Blast Cells # WBC Morphology Hypersegmented Neuts Hyposegmented Neuts Hypogranular Neuts Smudge Cells Toxic Granulation Toxic Vacuolation Dohle Bodies Pelger-Huet Anomaly [place] Rods Platelet Estimate Clumped Platelets Plt Clumps, EDTA Large Platelets Giant Platelets Platelet Satelliting Plt Morphology Comment RBC Morphology Dimorphic RBCs Polychromasia Hypochromasia Poikilocytosis Anisocytosis Microcytosis Macrocytosis Spherocytes Pappenheimer Bodies Sickle Cells Target Cells Tear Drop Cells Ovalocytes Helmet Cells [place] Bodies [place] Cells Bite Cells Crenated Cell Elliptocytes Acanthocytes (Spur) Rouleaux Hemoglobin C Crystals Schistocytes Malaria parasites Percent Retic Daljit Bodies Hem Pathologist Commnt PT INR Sodium Potassium Chloride Carbon Dioxide Anion Gap BUN Creatinine Estimated GFR BUN/Creatinine Ratio Glucose POC Glucose 141 H Calcium Total Bilirubin AST ALT Alkaline Phosphatase Ammonia NT-Pro-B Natriuret Pep Total Protein Albumin Albumin/Globulin Ratio Vitamin B12 Folate Urine Color Urine Turbidity Urine pH Ur Specific [place] Urine Protein Urine Glucose (UA) Urine Ketones Urine Blood Urine Nitrite Urine Bilirubin Urine Ictotest Urine Urobilinogen Ur Leukocyte Esterase Urine WBC (Auto) Urine RBC (Auto) U Epithel Cells (Auto) Granular Casts Urine Mucus CMV DNA PCR log asbestos microscopist/mL See scanned report Hepatitis A IgM Ab Miscellaneous Test Flexitest 1 H Blood Type Antibody Screen Antibody Identification Direct Antiglob Test JYOTI, Poly Interpret Crossmatch Pre-Trans JYOTI Pre-Trans JYOTI Poly Post-Trans Blood Type Post-Trans JYOTI Post-Trans JYOTI Poly 08/27/16 08/27/16 08/27/16 08:20 08:20 09:55 WBC RBC Hgb Hct MCV MCH MCHC RDW Plt Count Add Manual Diff Total Counted Seg Neutrophils % Seg Neuts % (Manual) Band Neutrophils % Lymphocytes % (Manual) Reactive Lymphs % (Man) Monocytes % (Manual) Eosinophils % (Manual) Basophils % (Manual) Metamyelocytes % Myelocytes % Promyelocytes % Blast Cells % Nucleated RBC % Seg Neutrophils # Man Band Neutrophils # Lymphocytes # (Manual) Abs React Lymphs (Man) Monocytes # (Manual) Eosinophils # (Manual) Basophils # (Manual) Metamyelocytes # Myelocytes # Promyelocytes # Blast Cells # WBC Morphology Hypersegmented Neuts Hyposegmented Neuts Hypogranular Neuts Smudge Cells Toxic Granulation Toxic Vacuolation Dohle Bodies Pelger-Huet Anomaly [place] Rods Platelet Estimate Clumped Platelets Plt Clumps, EDTA Large Platelets Giant Platelets Platelet Satelliting Plt Morphology Comment RBC Morphology Dimorphic RBCs Polychromasia Hypochromasia Poikilocytosis Anisocytosis Microcytosis Macrocytosis Spherocytes Pappenheimer Bodies Sickle Cells Target Cells Tear Drop Cells Ovalocytes Helmet Cells [place] Bodies [place] Cells Bite Cells Crenated Cell Elliptocytes Acanthocytes (Spur) Rouleaux Hemoglobin C Crystals Schistocytes Malaria parasites Percent Retic Daljit Bodies Hem Pathologist Commnt PT INR Sodium Potassium Chloride Carbon Dioxide Anion Gap BUN Creatinine Estimated GFR BUN/Creatinine Ratio Glucose POC Glucose 133 H Calcium Total Bilirubin AST ALT Alkaline Phosphatase Ammonia NT-Pro-B Natriuret Pep Total Protein Albumin Albumin/Globulin Ratio Vitamin B12 Folate Urine Color Urine Turbidity Urine pH Ur Specific [place] Urine Protein Urine Glucose (UA) Urine Ketones Urine Blood Urine Nitrite Urine Bilirubin Urine Ictotest Urine Urobilinogen Ur Leukocyte Esterase Urine WBC (Auto) Urine RBC (Auto) U Epithel Cells (Auto) Granular Casts Urine Mucus CMV DNA PCR log asbestos microscopist/mL Hepatitis A IgM Ab Miscellaneous Test Blood Type O NEGATIVE Antibody Screen Positive Antibody Identification Anti-D (Passively Aquired) Direct Antiglob Test Negative JYOTI, Poly Interpret Negative Crossmatch See Detail Pre-Trans JYOTI Pre-Trans JYOTI Poly Post-Trans Blood Type Post-Trans JYOTI Post-Trans JYOTI Poly 08/27/16 08/27/16 08/27/16 11:15 11:15 11:15 WBC RBC Hgb Hct MCV MCH MCHC RDW Plt Count Add Manual Diff Total Counted Seg Neutrophils % Seg Neuts % (Manual) Band Neutrophils % Lymphocytes % (Manual) Reactive Lymphs % (Man) Monocytes % (Manual) Eosinophils % (Manual) Basophils % (Manual) Metamyelocytes % Myelocytes % Promyelocytes % Blast Cells % Nucleated RBC % Seg Neutrophils # Man Band Neutrophils # Lymphocytes # (Manual) Abs React Lymphs (Man) Monocytes # (Manual) Eosinophils # (Manual) Basophils # (Manual) Metamyelocytes # Myelocytes # Promyelocytes # Blast Cells # WBC Morphology Hypersegmented Neuts Hyposegmented Neuts Hypogranular Neuts Smudge Cells Toxic Granulation Toxic Vacuolation Dohle Bodies Pelger-Huet Anomaly [place] Rods Platelet Estimate Clumped Platelets Plt Clumps, EDTA Large Platelets Giant Platelets Platelet Satelliting Plt Morphology Comment RBC Morphology Dimorphic RBCs Polychromasia Hypochromasia Poikilocytosis Anisocytosis Microcytosis Macrocytosis Spherocytes Pappenheimer Bodies Sickle Cells Target Cells Tear Drop Cells Ovalocytes Helmet Cells [place] Bodies [place] Cells Bite Cells Crenated Cell Elliptocytes Acanthocytes (Spur) Rouleaux Hemoglobin C Crystals Schistocytes Malaria parasites Percent Retic 6.59 H Daljit Bodies Hem Pathologist Commnt PT 17.2 H INR 1.41 H Sodium Potassium Chloride Carbon Dioxide Anion Gap BUN Creatinine Estimated GFR BUN/Creatinine Ratio Glucose POC Glucose Calcium Total Bilirubin AST ALT Alkaline Phosphatase Ammonia NT-Pro-B Natriuret Pep Total Protein Albumin Albumin/Globulin Ratio Vitamin B12 > 2000 H Folate Urine Color Urine Turbidity Urine pH Ur Specific [place] Urine Protein Urine Glucose (UA) Urine Ketones Urine Blood Urine Nitrite Urine Bilirubin Urine Ictotest Urine Urobilinogen Ur Leukocyte Esterase Urine WBC (Auto) Urine RBC (Auto) U Epithel Cells (Auto) Granular Casts Urine Mucus CMV DNA PCR log asbestos microscopist/mL Hepatitis A IgM Ab Miscellaneous Test Blood Type Antibody Screen Antibody Identification Direct Antiglob Test JYOTI, Poly Interpret Crossmatch Pre-Trans JYOTI Pre-Trans JYOTI Poly Post-Trans Blood Type Post-Trans JYOTI Post-Trans JYOTI Poly 08/27/16 08/27/16 08/27/16 11:15 11:15 11:15 WBC RBC Hgb Hct MCV MCH MCHC RDW Plt Count Add Manual Diff Total Counted Seg Neutrophils % Seg Neuts % (Manual) Band Neutrophils % Lymphocytes % (Manual) Reactive Lymphs % (Man) Monocytes % (Manual) Eosinophils % (Manual) Basophils % (Manual) Metamyelocytes % Myelocytes % Promyelocytes % Blast Cells % Nucleated RBC % Seg Neutrophils # Man Band Neutrophils # Lymphocytes # (Manual) Abs React Lymphs (Man) Monocytes # (Manual) Eosinophils # (Manual) Basophils # (Manual) Metamyelocytes # Myelocytes # Promyelocytes # Blast Cells # WBC Morphology Hypersegmented Neuts Hyposegmented Neuts Hypogranular Neuts Smudge Cells Toxic Granulation Toxic Vacuolation Dohle Bodies Pelger-Huet Anomaly [place] Rods Platelet Estimate Clumped Platelets Plt Clumps, EDTA Large Platelets Giant Platelets Platelet Satelliting Plt Morphology Comment RBC Morphology Dimorphic RBCs Polychromasia Hypochromasia Poikilocytosis Anisocytosis Microcytosis Macrocytosis Spherocytes Pappenheimer Bodies Sickle Cells Target Cells Tear Drop Cells Ovalocytes Helmet Cells [place] Bodies [place] Cells Bite Cells Crenated Cell Elliptocytes Acanthocytes (Spur) Rouleaux Hemoglobin C Crystals Schistocytes Malaria parasites Percent Retic Daljit Bodies Hem Pathologist Commnt PT INR Sodium Potassium Chloride Carbon Dioxide Anion Gap BUN Creatinine Estimated GFR BUN/Creatinine Ratio Glucose POC Glucose Calcium Total Bilirubin AST ALT Alkaline Phosphatase Ammonia 53.0 NT-Pro-B Natriuret Pep Total Protein Albumin Albumin/Globulin Ratio Vitamin B12 Folate 10.54 Urine Color Urine Turbidity Urine pH Ur Specific [place] Urine Protein Urine Glucose (UA) Urine Ketones Urine Blood Urine Nitrite Urine Bilirubin Urine Ictotest Urine Urobilinogen Ur Leukocyte Esterase Urine WBC (Auto) Urine RBC (Auto) U Epithel Cells (Auto) Granular Casts Urine Mucus CMV DNA PCR log asbestos microscopist/mL Hepatitis A IgM Ab -1 Miscellaneous Test Blood Type Antibody Screen Antibody Identification Direct Antiglob Test JYOTI, Poly Interpret Crossmatch Pre-Trans JYOTI Pre-Trans JYOTI Poly Post-Trans Blood Type Post-Trans JYOTI Post-Trans JYOTI Poly 08/27/16 08/27/16 08/27/16 11:59 14:06 15:20 WBC RBC Hgb Hct MCV MCH MCHC RDW Plt Count Add Manual Diff Total Counted Seg Neutrophils % Seg Neuts % (Manual) Band Neutrophils % Lymphocytes % (Manual) Reactive Lymphs % (Man) Monocytes % (Manual) Eosinophils % (Manual) Basophils % (Manual) Metamyelocytes % Myelocytes % Promyelocytes % Blast Cells % Nucleated RBC % Seg Neutrophils # Man Band Neutrophils # Lymphocytes # (Manual) Abs React Lymphs (Man) Monocytes # (Manual) Eosinophils # (Manual) Basophils # (Manual) Metamyelocytes # Myelocytes # Promyelocytes # Blast Cells # WBC Morphology Hypersegmented Neuts Hyposegmented Neuts Hypogranular Neuts Smudge Cells Toxic Granulation Toxic Vacuolation Dohle Bodies Pelger-Huet Anomaly [place] Rods Platelet Estimate Clumped Platelets Plt Clumps, EDTA Large Platelets Giant Platelets Platelet Satelliting Plt Morphology Comment RBC Morphology Dimorphic RBCs Polychromasia Hypochromasia Poikilocytosis Anisocytosis Microcytosis Macrocytosis Spherocytes Pappenheimer Bodies Sickle Cells Target Cells Tear Drop Cells Ovalocytes Helmet Cells [place] Bodies [place] Cells Bite Cells Crenated Cell Elliptocytes Acanthocytes (Spur) Rouleaux Hemoglobin C Crystals Schistocytes Malaria parasites Percent Retic Daljit Bodies Hem Pathologist Commnt PT INR Sodium Potassium Chloride Carbon Dioxide Anion Gap BUN Creatinine Estimated GFR BUN/Creatinine Ratio Glucose POC Glucose 129 H 148 H Calcium Total Bilirubin AST ALT Alkaline Phosphatase Ammonia NT-Pro-B Natriuret Pep Total Protein Albumin Albumin/Globulin Ratio Vitamin B12 Folate Urine Color Urine Turbidity Urine pH Ur Specific [place] Urine Protein Urine Glucose (UA) Urine Ketones Urine Blood Urine Nitrite Urine Bilirubin Urine Ictotest Urine Urobilinogen Ur Leukocyte Esterase Urine WBC (Auto) Urine RBC (Auto) U Epithel Cells (Auto) Granular Casts Urine Mucus CMV DNA PCR log asbestos microscopist/mL Hepatitis A IgM Ab Miscellaneous Test Blood Type Antibody Screen Antibody Identification Direct Antiglob Test JYOTI, Poly Interpret Crossmatch Pre-Trans JYOTI Negative Pre-Trans JYOTI Poly Negative Post-Trans Blood Type O negative Post-Trans JYOTI Negative Post-Trans JYOTI Poly Negative 08/27/16 08/27/16 08/27/16 15:20 16:23 16:30 WBC RBC Hgb Hct MCV MCH MCHC RDW Plt Count Add Manual Diff Total Counted Seg Neutrophils % Seg Neuts % (Manual) Band Neutrophils % Lymphocytes % (Manual) Reactive Lymphs % (Man) Monocytes % (Manual) Eosinophils % (Manual) Basophils % (Manual) Metamyelocytes % Myelocytes % Promyelocytes % Blast Cells % Nucleated RBC % Seg Neutrophils # Man Band Neutrophils # Lymphocytes # (Manual) Abs React Lymphs (Man) Monocytes # (Manual) Eosinophils # (Manual) Basophils # (Manual) Metamyelocytes # Myelocytes # Promyelocytes # Blast Cells # WBC Morphology Hypersegmented Neuts Hyposegmented Neuts Hypogranular Neuts Smudge Cells Toxic Granulation Toxic Vacuolation Dohle Bodies Pelger-Huet Anomaly [place] Rods Platelet Estimate Clumped Platelets Plt Clumps, EDTA Large Platelets Giant Platelets Platelet Satelliting Plt Morphology Comment RBC Morphology Dimorphic RBCs Polychromasia Hypochromasia Poikilocytosis Anisocytosis Microcytosis Macrocytosis Spherocytes Pappenheimer Bodies Sickle Cells Target Cells Tear Drop Cells Ovalocytes Helmet Cells [place] Bodies [place] Cells Bite Cells Crenated Cell Elliptocytes Acanthocytes (Spur) Rouleaux Hemoglobin C Crystals Schistocytes Malaria parasites Percent Retic Daljit Bodies Hem Pathologist Commnt PT INR Sodium Potassium Chloride Carbon Dioxide Anion Gap BUN Creatinine Estimated GFR BUN/Creatinine Ratio Glucose POC Glucose 111 H Calcium Total Bilirubin AST ALT Alkaline Phosphatase Ammonia NT-Pro-B Natriuret Pep 241.0 Total Protein Albumin Albumin/Globulin Ratio Vitamin B12 Folate Urine Color [place] Urine Turbidity Clear Urine pH 6.0 Ur Specific [place] 1.018 Urine Protein 30 mg/dl Urine Glucose (UA) Neg Urine Ketones Neg Urine Blood Mod Urine Nitrite Neg Urine Bilirubin Mod Urine Ictotest Positive Urine Urobilinogen 4.0 Ur Leukocyte Esterase Neg Urine WBC (Auto) 10.0 H Urine RBC (Auto) 7.0 U Epithel Cells (Auto) < 1.0 Granular Casts 4 Urine Mucus Few CMV DNA PCR log asbestos microscopist/mL Hepatitis A IgM Ab Miscellaneous Test Blood Type Antibody Screen Antibody Identification Direct Antiglob Test JYOTI, Poly Interpret Crossmatch Pre-Trans JYOTI Pre-Trans JYOTI Poly Post-Trans Blood Type Post-Trans JYOTI Post-Trans JYOTI Poly 08/27/16 08/27/16 08/27/16 19:35 19:46 21:36 WBC 26.5 H RBC 2.19 L Hgb 6.6 L Hct 20.1 L MCV 92 MCH 30 MCHC 33 RDW 15.9 H Plt Count 78 L Add Manual Diff Total Counted Seg Neutrophils % Seg Neuts % (Manual) Band Neutrophils % Lymphocytes % (Manual) Reactive Lymphs % (Man) Monocytes % (Manual) Eosinophils % (Manual) Basophils % (Manual) Metamyelocytes % Myelocytes % Promyelocytes % Blast Cells % Nucleated RBC % Seg Neutrophils # Man Band Neutrophils # Lymphocytes # (Manual) Abs React Lymphs (Man) Monocytes # (Manual) Eosinophils # (Manual) Basophils # (Manual) Metamyelocytes # Myelocytes # Promyelocytes # Blast Cells # WBC Morphology Hypersegmented Neuts Hyposegmented Neuts Hypogranular Neuts Smudge Cells Toxic Granulation Toxic Vacuolation Dohle Bodies Pelger-Huet Anomaly [place] Rods Platelet Estimate Clumped Platelets Plt Clumps, EDTA Large Platelets Giant Platelets Platelet Satelliting Plt Morphology Comment RBC Morphology Dimorphic RBCs Polychromasia Hypochromasia Poikilocytosis Anisocytosis Microcytosis Macrocytosis Spherocytes Pappenheimer Bodies Sickle Cells Target Cells Tear Drop Cells Ovalocytes Helmet Cells [place] Bodies [place] Cells Bite Cells Crenated Cell Elliptocytes Acanthocytes (Spur) Rouleaux Hemoglobin C Crystals Schistocytes Malaria parasites Percent Retic Daljit Bodies Hem Pathologist Commnt PT INR Sodium Potassium Chloride Carbon Dioxide Anion Gap BUN Creatinine Estimated GFR BUN/Creatinine Ratio Glucose POC Glucose 108 H 129 H Calcium Total Bilirubin AST ALT Alkaline Phosphatase Ammonia NT-Pro-B Natriuret Pep Total Protein Albumin Albumin/Globulin Ratio Vitamin B12 Folate Urine Color Urine Turbidity Urine pH Ur Specific [place] Urine Protein Urine Glucose (UA) Urine Ketones Urine Blood Urine Nitrite Urine Bilirubin Urine Ictotest Urine Urobilinogen Ur Leukocyte Esterase Urine WBC (Auto) Urine RBC (Auto) U Epithel Cells (Auto) Granular Casts Urine Mucus CMV DNA PCR log asbestos microscopist/mL Hepatitis A IgM Ab Miscellaneous Test Blood Type Antibody Screen Antibody Identification Direct Antiglob Test JYOTI, Poly Interpret Crossmatch Pre-Trans JYOTI Pre-Trans JYOTI Poly Post-Trans Blood Type Post-Trans JYOTI Post-Trans JYOTI Poly 08/28/16 08/28/16 08/28/16 00:18 02:22 05:30 WBC RBC Hgb Hct MCV MCH MCHC RDW Plt Count Add Manual Diff Total Counted Seg Neutrophils % Seg Neuts % (Manual) Band Neutrophils % Lymphocytes % (Manual) Reactive Lymphs % (Man) Monocytes % (Manual) Eosinophils % (Manual) Basophils % (Manual) Metamyelocytes % Myelocytes % Promyelocytes % Blast Cells % Nucleated RBC % Seg Neutrophils # Man Band Neutrophils # Lymphocytes # (Manual) Abs React Lymphs (Man) Monocytes # (Manual) Eosinophils # (Manual) Basophils # (Manual) Metamyelocytes # Myelocytes # Promyelocytes # Blast Cells # WBC Morphology Hypersegmented Neuts Hyposegmented Neuts Hypogranular Neuts Smudge Cells Toxic Granulation Toxic Vacuolation Dohle Bodies Pelger-Huet Anomaly [place] Rods Platelet Estimate Clumped Platelets Plt Clumps, EDTA Large Platelets Giant Platelets Platelet Satelliting Plt Morphology Comment RBC Morphology Dimorphic RBCs Polychromasia Hypochromasia Poikilocytosis Anisocytosis Microcytosis Macrocytosis Spherocytes Pappenheimer Bodies Sickle Cells Target Cells Tear Drop Cells Ovalocytes Helmet Cells [place] Bodies [place] Cells Bite Cells Crenated Cell Elliptocytes Acanthocytes (Spur) Rouleaux Hemoglobin C Crystals Schistocytes Malaria parasites Percent Retic Daljit Bodies Hem Pathologist Commnt PT 19.0 H INR 1.60 H Sodium Potassium Chloride Carbon Dioxide Anion Gap BUN Creatinine Estimated GFR BUN/Creatinine Ratio Glucose POC Glucose 114 H 121 H Calcium Total Bilirubin AST ALT Alkaline Phosphatase Ammonia NT-Pro-B Natriuret Pep Total Protein Albumin Albumin/Globulin Ratio Vitamin B12 Folate Urine Color Urine Turbidity Urine pH Ur Specific [place] Urine Protein Urine Glucose (UA) Urine Ketones Urine Blood Urine Nitrite Urine Bilirubin Urine Ictotest Urine Urobilinogen Ur Leukocyte Esterase Urine WBC (Auto) Urine RBC (Auto) U Epithel Cells (Auto) Granular Casts Urine Mucus CMV DNA PCR log asbestos microscopist/mL Hepatitis A IgM Ab Miscellaneous Test Blood Type Antibody Screen Antibody Identification Direct Antiglob Test JYOTI, Poly Interpret Crossmatch Pre-Trans JYOTI Pre-Trans JYOTI Poly Post-Trans Blood Type Post-Trans JYOTI Post-Trans JYOTI Poly 08/28/16 08/28/16 08/28/16 05:30 05:30 06:03 WBC 29.9 H RBC 2.54 L Hgb 8.0 L Hct 23.5 L MCV 93 MCH 32 MCHC 34 RDW 15.4 H Plt Count 49 L Add Manual Diff Complete Total Counted 200 Seg Neutrophils % Cooking Chef Seg Neuts % (Manual) 91.5 H Band Neutrophils % 2.0 Lymphocytes % (Manual) 2.0 L Reactive Lymphs % (Man) 0 Monocytes % (Manual) 3.0 Eosinophils % (Manual) 0 Basophils % (Manual) 0 Metamyelocytes % 1.5 Myelocytes % 0 Promyelocytes % 0 Blast Cells % 0 Nucleated RBC % 12.0 H Seg Neutrophils # Man 27.4 H Band Neutrophils # 0.6 Lymphocytes # (Manual) 0.6 L Abs React Lymphs (Man) 0.0 Monocytes # (Manual) 0.9 H Eosinophils # (Manual) 0.0 Basophils # (Manual) 0.0 Metamyelocytes # 0.4 Myelocytes # 0.0 Promyelocytes # 0.0 Blast Cells # 0.0 WBC Morphology Not Reportable Hypersegmented Neuts Not Reportable Hyposegmented Neuts Not Reportable Hypogranular Neuts Not Reportable Smudge Cells Not Reportable Toxic Granulation Not Reportable Toxic Vacuolation Not Reportable Dohle Bodies Not Reportable Pelger-Huet Anomaly Not Reportable [place] Rods Not Reportable Platelet Estimate Appears decreased Clumped Platelets Not Reportable Plt Clumps, EDTA Not Reportable Large Platelets Not Reportable Giant Platelets Not Reportable Platelet Satelliting Not Reportable Plt Morphology Comment Not Reportable RBC Morphology Not Reportable Dimorphic RBCs Not Reportable Polychromasia 1+ Hypochromasia Not Reportable Poikilocytosis Not Reportable Anisocytosis 2+ Microcytosis Few Macrocytosis Not Reportable Spherocytes Not Reportable Pappenheimer Bodies Not Reportable Sickle Cells Not Reportable Target Cells Not Reportable Tear Drop Cells Not Reportable Ovalocytes Few Helmet Cells Not Reportable [place] Bodies Not Reportable [place] Rings Not Reportable [place] Cells Not Reportable Bite Cells Not Reportable Crenated Cell Not Reportable Elliptocytes Not Reportable Acanthocytes (Spur) Not Reportable Rouleaux Not Reportable Hemoglobin C Crystals Not Reportable Schistocytes Not Reportable Malaria parasites Not Reportable Percent Retic Daljit Bodies Not Reportable Hem Pathologist Commnt No PT INR Sodium 133 L Potassium 4.5 Chloride 101.4 Carbon Dioxide 19 L Anion Gap 17 BUN 47 H Creatinine 0.8 Estimated GFR > 60 BUN/Creatinine Ratio 58.75 Glucose 130 H POC Glucose 142 H Calcium 6.7 L Total Bilirubin 25.3 H AST 170 H ALT 48 Alkaline Phosphatase 252 H Ammonia NT-Pro-B Natriuret Pep Total Protein 4.2 L Albumin 1.5 L Albumin/Globulin Ratio 0.6 Vitamin B12 Folate Urine Color Urine Turbidity Urine pH Ur Specific [place] Urine Protein Urine Glucose (UA) Urine Ketones Urine Blood Urine Nitrite Urine Bilirubin Urine Ictotest Urine Urobilinogen Ur Leukocyte Esterase Urine WBC (Auto) Urine RBC (Auto) U Epithel Cells (Auto) Granular Casts Urine Mucus CMV DNA PCR log asbestos microscopist/mL Hepatitis A IgM Ab Miscellaneous Test Blood Type Antibody Screen Antibody Identification Direct Antiglob Test JYOTI, Poly Interpret Crossmatch Pre-Trans JYOTI Pre-Trans JYOTI Poly Post-Trans Blood Type Post-Trans JYOTI Post-Trans JYOTI Poly 08/28/16 07:55 WBC RBC Hgb Hct MCV MCH MCHC RDW Plt Count Add Manual Diff Total Counted Seg Neutrophils % Seg Neuts % (Manual) Band Neutrophils % Lymphocytes % (Manual) Reactive Lymphs % (Man) Monocytes % (Manual) Eosinophils % (Manual) Basophils % (Manual) Metamyelocytes % Myelocytes % Promyelocytes % Blast Cells % Nucleated RBC % Seg Neutrophils # Man Band Neutrophils # Lymphocytes # (Manual) Abs React Lymphs (Man) Monocytes # (Manual) Eosinophils # (Manual) Basophils # (Manual) Metamyelocytes # Myelocytes # Promyelocytes # Blast Cells # WBC Morphology Hypersegmented Neuts Hyposegmented Neuts Hypogranular Neuts Smudge Cells Toxic Granulation Toxic Vacuolation Dohle Bodies Pelger-Huet Anomaly [place] Rods Platelet Estimate Clumped Platelets Plt Clumps, EDTA Large Platelets Giant Platelets Platelet Satelliting Plt Morphology Comment RBC Morphology Dimorphic RBCs Polychromasia Hypochromasia Poikilocytosis Anisocytosis Microcytosis Macrocytosis Spherocytes Pappenheimer Bodies Sickle Cells Target Cells Tear Drop Cells Ovalocytes Helmet Cells [place] Bodies [place] Cells Bite Cells Crenated Cell Elliptocytes Acanthocytes (Spur) Rouleaux Hemoglobin C Crystals Schistocytes Malaria parasites Percent Retic Daljit Bodies Hem Pathologist Commnt PT INR Sodium Potassium Chloride Carbon Dioxide Anion Gap BUN Creatinine Estimated GFR BUN/Creatinine Ratio Glucose POC Glucose 141 H Calcium Total Bilirubin AST ALT Alkaline Phosphatase Ammonia NT-Pro-B Natriuret Pep Total Protein Albumin Albumin/Globulin Ratio Vitamin B12 Folate Urine Color Urine Turbidity Urine pH Ur Specific [place] Urine Protein Urine Glucose (UA) Urine Ketones Urine Blood Urine Nitrite Urine Bilirubin Urine Ictotest Urine Urobilinogen Ur Leukocyte Esterase Urine WBC (Auto) Urine RBC (Auto) U Epithel Cells (Auto) Granular Casts Urine Mucus CMV DNA PCR log asbestos microscopist/mL Hepatitis A IgM Ab Miscellaneous Test Blood Type Antibody Screen Antibody Identification Direct Antiglob Test JYOTI, Poly Interpret Crossmatch Pre-Trans JYOTI Pre-Trans JYOTI Poly Post-Trans Blood Type Post-Trans JYOTI Post-Trans JYOTI Poly Assessment and Plan 1. Elevated liver Enzymes -Favor HELLP syndrome vs Acute liver failure in . The patient is alert , awake and oriented x 3. (AMS in liver failure). Would recommend close monitoring. TB is likely at peak and will trend down. Transaminases are trending down. Noted GB US with pericholecytic fluid and wall thickening. Consider Surgical consult in the setting of concern for infection. No abdominal pain. ID following and workup in progress. Platelets are trending down to 49. If patient develops AMS or worsening of INR/LFTS may need to be transferred for RESIDENTIAL. Trend INR daily. 2. HELLP Syndrome S/P C section <NICOLE WELSH - Last Filed: 08/29/16 08:15> Medications and Allergies Active Meds: Active Medications Acetaminophen (Tylenol) 650 mg PO Q4H PRN PRN Reason: Fever >100.5/MARCUS Acetaminophen/Hydrocodone Bitart (Channing 5/325) 1 each PO Q6H PRN PRN Reason: Pain, Moderate (4-6) Last Admin: 08/24/16 19:13 Dose: 1 each Bisacodyl (Dulcolax) 5 mg PO QHS PRN PRN Reason: Constipation Last Admin: 08/28/16 14:57 Dose: 5 mg Dextrose (D5w) 1,000 mls @ 50 mls/hr IV DIRECT VANESSA Last Admin: 08/29/16 05:22 Dose: 50 mls/hr Levofloxacin/Dextrose (Levaquin 750mg/150ml) 150 mls @ 100 mls/hr IV Q24HR [facility] PRN Reason: Protocol Last Admin: 08/28/16 10:26 Dose: 100 mls/hr Vancomycin HCl 1,250 mg/ (Sodium Chloride) 250 mls @ 166.667 mls/hr IV Q8HR [facility] Last Admin: 08/29/16 05:22 Dose: 166.667 mls/hr Ibuprofen (Motrin) 800 mg PO Q6H PRN PRN Reason: Pain, Mild (1-3) Labetalol HCl (Normodyne) 100 mg PO BID [facility] Last Admin: 08/29/16 00:55 Dose: Not Given Morphine Sulfate (Morphine) 2 mg IV Q6HR PRN PRN Reason: Pain, Moderate (4-6) Last Admin: 08/28/16 21:56 Dose: 2 mg Multi-Ingredient Ointment (Lansinoh) 1 applic TP PRN PRN PRN Reason: dryness/cracking Naloxone HCl (Narcan 0.4 Mg/1 Ml) 0.1 mg IV Q2MIN PRN PRN Reason: Res Rate </= 8 or 02 SAT < 92% Last Admin: 08/23/16 04:45 Dose: 0.1 mg Ondansetron HCl (Zofran) 4 mg IV Q4H PRN PRN Reason: Nausea And Vomiting Last Admin: 08/27/16 19:53 Dose: 4 mg Oxycodone/Acetaminophen (Percocet 5/325) 1 tab PO Q6H PRN PRN Reason: Pain, Moderate (4-6) Oxycodone/Acetaminophen (Percocet 5/325) 2 tab PO Q6H PRN PRN Reason: Moder Pain unrelieved by Channing Vancomycin HCl (Vancomycin Pharmacy To Dose) 1 each IV PKCONSULT VANESSA PRN Reason: Protocol Witch Chloe/Glycerin (Tucks Pad) 1 each TP PRN PRN PRN Reason: Hemorrhoids/cleansing/soothing Exam - Constitutional Vital Signs: Temp Pulse Resp BP Pulse Ox 97.6 F 83 20 123/61 96 08/29/16 08:00 08/29/16 05:00 08/29/16 05:00 08/29/16 05:00 08/29/16 05:26 - Labs CBC & Chem 7: 08/29/16 04:30 08/29/16 04:30 Lab Results: Laboratory Results - last 24 hr 08/27/16 08/27/16 08/28/16 08:20 11:15 03:19 WBC RBC Hgb Hct MCV MCH MCHC RDW Plt Count Add Manual Diff Total Counted Seg Neuts % (Manual) Band Neutrophils % Lymphocytes % (Manual) Reactive Lymphs % (Man) Monocytes % (Manual) Eosinophils % (Manual) Basophils % (Manual) Metamyelocytes % Myelocytes % Promyelocytes % Blast Cells % Nucleated RBC % Seg Neutrophils # Man Band Neutrophils # Lymphocytes # (Manual) Abs React Lymphs (Man) Monocytes # (Manual) Eosinophils # (Manual) Basophils # (Manual) Metamyelocytes # Myelocytes # Promyelocytes # Blast Cells # WBC Morphology Hypersegmented Neuts Hyposegmented Neuts Hypogranular Neuts Smudge Cells Toxic Granulation Toxic Vacuolation Dohle Bodies Pelger-Huet Anomaly [place] Rods Platelet Estimate Clumped Platelets Plt Clumps, EDTA Large Platelets Giant Platelets Platelet Satelliting Plt Morphology Comment RBC Morphology Dimorphic RBCs Polychromasia Hypochromasia Poikilocytosis Anisocytosis Microcytosis Macrocytosis Spherocytes Pappenheimer Bodies Sickle Cells Target Cells Tear Drop Cells Ovalocytes Helmet Cells [place] Bodies [place] Cells Bite Cells Crenated Cell Elliptocytes Acanthocytes (Spur) Rouleaux Hemoglobin C Crystals Schistocytes Malaria parasites Daljit Bodies Haptoglobin <15 L Hem Pathologist Commnt PT INR Sodium Potassium Chloride Carbon Dioxide Anion Gap BUN Creatinine Estimated GFR BUN/Creatinine Ratio Glucose POC Glucose 120 H Lactic Acid Calcium Total Bilirubin Direct Bilirubin Indirect Bilirubin AST ALT Alkaline Phosphatase Total Protein Albumin Albumin/Globulin Ratio Blood Type O NEGATIVE Antibody Screen Positive Antibody Identification Anti-D (Passively Aquired) Crossmatch See Detail 08/28/16 08/28/16 08/28/16 11:11 12:03 14:03 WBC RBC Hgb Hct MCV MCH MCHC RDW Plt Count Add Manual Diff Total Counted Seg Neuts % (Manual) Band Neutrophils % Lymphocytes % (Manual) Reactive Lymphs % (Man) Monocytes % (Manual) Eosinophils % (Manual) Basophils % (Manual) Metamyelocytes % Myelocytes % Promyelocytes % Blast Cells % Nucleated RBC % Seg Neutrophils # Man Band Neutrophils # Lymphocytes # (Manual) Abs React Lymphs (Man) Monocytes # (Manual) Eosinophils # (Manual) Basophils # (Manual) Metamyelocytes # Myelocytes # Promyelocytes # Blast Cells # WBC Morphology Hypersegmented Neuts Hyposegmented Neuts Hypogranular Neuts Smudge Cells Toxic Granulation Toxic Vacuolation Dohle Bodies Pelger-Huet Anomaly [place] Rods Platelet Estimate Clumped Platelets Plt Clumps, EDTA Large Platelets Giant Platelets Platelet Satelliting Plt Morphology Comment RBC Morphology Dimorphic RBCs Polychromasia Hypochromasia Poikilocytosis Anisocytosis Microcytosis Macrocytosis Spherocytes Pappenheimer Bodies Sickle Cells Target Cells Tear Drop Cells Ovalocytes Helmet Cells [place] Bodies [place] Cells Bite Cells Crenated Cell Elliptocytes Acanthocytes (Spur) Rouleaux Hemoglobin C Crystals Schistocytes Malaria parasites Daljit Bodies Haptoglobin Hem Pathologist Commnt PT INR Sodium Potassium Chloride Carbon Dioxide Anion Gap BUN Creatinine Estimated GFR BUN/Creatinine Ratio Glucose POC Glucose 153 H 174 H 129 H Lactic Acid Calcium Total Bilirubin Direct Bilirubin Indirect Bilirubin AST ALT Alkaline Phosphatase Total Protein Albumin Albumin/Globulin Ratio Blood Type Antibody Screen Antibody Identification Crossmatch 08/28/16 08/28/16 08/28/16 16:45 16:45 16:45 WBC 23.1 H RBC 2.33 L Hgb 7.2 L Hct 21.6 L MCV 93 MCH 31 MCHC 33 RDW 15.6 H Plt Count 53 L Add Manual Diff Total Counted Seg Neuts % (Manual) Band Neutrophils % Lymphocytes % (Manual) Reactive Lymphs % (Man) Monocytes % (Manual) Eosinophils % (Manual) Basophils % (Manual) Metamyelocytes % Myelocytes % Promyelocytes % Blast Cells % Nucleated RBC % Seg Neutrophils # Man Band Neutrophils # Lymphocytes # (Manual) Abs React Lymphs (Man) Monocytes # (Manual) Eosinophils # (Manual) Basophils # (Manual) Metamyelocytes # Myelocytes # Promyelocytes # Blast Cells # WBC Morphology Hypersegmented Neuts Hyposegmented Neuts Hypogranular Neuts Smudge Cells Toxic Granulation Toxic Vacuolation Dohle Bodies Pelger-Huet Anomaly [place] Rods Platelet Estimate Clumped Platelets Plt Clumps, EDTA Large Platelets Giant Platelets Platelet Satelliting Plt Morphology Comment RBC Morphology Dimorphic RBCs Polychromasia Hypochromasia Poikilocytosis Anisocytosis Microcytosis Macrocytosis Spherocytes Pappenheimer Bodies Sickle Cells Target Cells Tear Drop Cells Ovalocytes Helmet Cells [place] Bodies [place] Cells Bite Cells Crenated Cell Elliptocytes Acanthocytes (Spur) Rouleaux Hemoglobin C Crystals Schistocytes Malaria parasites Daljit Bodies Haptoglobin Hem Pathologist Commnt PT 16.6 H INR 1.35 H Sodium 134 L Potassium 4.2 Chloride 102.1 Carbon Dioxide 19 L Anion Gap 17 BUN 54 H Creatinine 0.9 Estimated GFR > 60 BUN/Creatinine Ratio 60.00 Glucose 134 H POC Glucose Lactic Acid Calcium 6.7 L Total Bilirubin 23.5 H Direct Bilirubin Indirect Bilirubin AST 129 H ALT 46 Alkaline Phosphatase 217 H Total Protein 4.1 L Albumin 1.7 L Albumin/Globulin Ratio 0.7 Blood Type Antibody Screen Antibody Identification Crossmatch 08/28/16 08/28/16 08/28/16 16:49 18:32 20:22 WBC RBC Hgb Hct MCV MCH MCHC RDW Plt Count Add Manual Diff Total Counted Seg Neuts % (Manual) Band Neutrophils % Lymphocytes % (Manual) Reactive Lymphs % (Man) Monocytes % (Manual) Eosinophils % (Manual) Basophils % (Manual) Metamyelocytes % Myelocytes % Promyelocytes % Blast Cells % Nucleated RBC % Seg Neutrophils # Man Band Neutrophils # Lymphocytes # (Manual) Abs React Lymphs (Man) Monocytes # (Manual) Eosinophils # (Manual) Basophils # (Manual) Metamyelocytes # Myelocytes # Promyelocytes # Blast Cells # WBC Morphology Hypersegmented Neuts Hyposegmented Neuts Hypogranular Neuts Smudge Cells Toxic Granulation Toxic Vacuolation Dohle Bodies Pelger-Huet Anomaly [place] Rods Platelet Estimate Clumped Platelets Plt Clumps, EDTA Large Platelets Giant Platelets Platelet Satelliting Plt Morphology Comment RBC Morphology Dimorphic RBCs Polychromasia Hypochromasia Poikilocytosis Anisocytosis Microcytosis Macrocytosis Spherocytes Pappenheimer Bodies Sickle Cells Target Cells Tear Drop Cells Ovalocytes Helmet Cells [place] Bodies [place] Cells Bite Cells Crenated Cell Elliptocytes Acanthocytes (Spur) Rouleaux Hemoglobin C Crystals Schistocytes Malaria parasites Daljit Bodies Haptoglobin Hem Pathologist Commnt PT INR Sodium Potassium Chloride Carbon Dioxide Anion Gap BUN Creatinine Estimated GFR BUN/Creatinine Ratio Glucose POC Glucose 142 H 144 H 138 H Lactic Acid Calcium Total Bilirubin Direct Bilirubin Indirect Bilirubin AST ALT Alkaline Phosphatase Total Protein Albumin Albumin/Globulin Ratio Blood Type Antibody Screen Antibody Identification Crossmatch 08/28/16 08/28/16 08/29/16 21:58 23:55 02:05 WBC RBC Hgb Hct MCV MCH MCHC RDW Plt Count Add Manual Diff Total Counted Seg Neuts % (Manual) Band Neutrophils % Lymphocytes % (Manual) Reactive Lymphs % (Man) Monocytes % (Manual) Eosinophils % (Manual) Basophils % (Manual) Metamyelocytes % Myelocytes % Promyelocytes % Blast Cells % Nucleated RBC % Seg Neutrophils # Man Band Neutrophils # Lymphocytes # (Manual) Abs React Lymphs (Man) Monocytes # (Manual) Eosinophils # (Manual) Basophils # (Manual) Metamyelocytes # Myelocytes # Promyelocytes # Blast Cells # WBC Morphology Hypersegmented Neuts Hyposegmented Neuts Hypogranular Neuts Smudge Cells Toxic Granulation Toxic Vacuolation Dohle Bodies Pelger-Huet Anomaly [place] Rods Platelet Estimate Clumped Platelets Plt Clumps, EDTA Large Platelets Giant Platelets Platelet Satelliting Plt Morphology Comment RBC Morphology Dimorphic RBCs Polychromasia Hypochromasia Poikilocytosis Anisocytosis Microcytosis Macrocytosis Spherocytes Pappenheimer Bodies Sickle Cells Target Cells Tear Drop Cells Ovalocytes Helmet Cells [place] Bodies [place] Cells Bite Cells Crenated Cell Elliptocytes Acanthocytes (Spur) Rouleaux Hemoglobin C Crystals Schistocytes Malaria parasites Daljit Bodies Haptoglobin Hem Pathologist Commnt PT INR Sodium Potassium Chloride Carbon Dioxide Anion Gap BUN Creatinine Estimated GFR BUN/Creatinine Ratio Glucose POC Glucose 178 H 187 H 173 H Lactic Acid Calcium Total Bilirubin Direct Bilirubin Indirect Bilirubin AST ALT Alkaline Phosphatase Total Protein Albumin Albumin/Globulin Ratio Blood Type Antibody Screen Antibody Identification Crossmatch 08/29/16 08/29/16 08/29/16 03:57 04:30 04:30 WBC 19.4 H RBC 2.24 L Hgb 6.9 L Hct 20.6 L MCV 92 MCH 31 MCHC 33 RDW 16.1 H Plt Count 51 L Add Manual Diff Complete Total Counted 100 Seg Neuts % (Manual) 68.0 Band Neutrophils % 11.0 Lymphocytes % (Manual) 7.0 L Reactive Lymphs % (Man) 0 Monocytes % (Manual) 6.0 Eosinophils % (Manual) 0 Basophils % (Manual) 0 Metamyelocytes % 8.0 Myelocytes % 0 Promyelocytes % 0 Blast Cells % 0 Nucleated RBC % 7.0 H Seg Neutrophils # Man 13.2 H Band Neutrophils # 2.1 Lymphocytes # (Manual) 1.4 Abs React Lymphs (Man) 0.0 Monocytes # (Manual) 1.2 H Eosinophils # (Manual) 0.0 Basophils # (Manual) 0.0 Metamyelocytes # 1.6 Myelocytes # 0.0 Promyelocytes # 0.0 Blast Cells # 0.0 WBC Morphology Not Reportable Hypersegmented Neuts Not Reportable Hyposegmented Neuts Not Reportable Hypogranular Neuts Not Reportable Smudge Cells Not Reportable Toxic Granulation Not Reportable Toxic Vacuolation Not Reportable Dohle Bodies Not Reportable Pelger-Huet Anomaly Not Reportable [place] Rods Not Reportable Platelet Estimate Consistent w auto Clumped Platelets Not Reportable Plt Clumps, EDTA Not Reportable Large Platelets Not Reportable Giant Platelets Not Reportable Platelet Satelliting Not Reportable Plt Morphology Comment Not Reportable RBC Morphology Not Reportable Dimorphic RBCs Not Reportable Polychromasia 1+ Hypochromasia 1+ Poikilocytosis Not Reportable Anisocytosis 1+ Microcytosis Not Reportable Macrocytosis Not Reportable Spherocytes Not Reportable Pappenheimer Bodies Not Reportable Sickle Cells Not Reportable Target Cells Not Reportable Tear Drop Cells Not Reportable Ovalocytes Not Reportable Helmet Cells Not Reportable [place] Bodies Not Reportable [place] Not Reportable [place] Cells Not Reportable Bite Cells Not Reportable Crenated Cell Not Reportable Elliptocytes Not Reportable Acanthocytes (Spur) Not Reportable Rouleaux Not Reportable Hemoglobin C Crystals Not Reportable Schistocytes Few Malaria parasites Not Reportable Daljit Bodies Not Reportable Haptoglobin Hem Pathologist Commnt No PT INR Sodium Potassium Chloride Carbon Dioxide Anion Gap BUN Creatinine Estimated GFR BUN/Creatinine Ratio Glucose POC Glucose 161 H Lactic Acid 2.0 Calcium Total Bilirubin Direct Bilirubin Indirect Bilirubin AST ALT Alkaline Phosphatase Total Protein Albumin Albumin/Globulin Ratio Blood Type Antibody Screen Antibody Identification Crossmatch 08/29/16 08/29/16 08/29/16 04:30 04:30 05:53 WBC RBC Hgb Hct MCV MCH MCHC RDW Plt Count Add Manual Diff Total Counted Seg Neuts % (Manual) Band Neutrophils % Lymphocytes % (Manual) Reactive Lymphs % (Man) Monocytes % (Manual) Eosinophils % (Manual) Basophils % (Manual) Metamyelocytes % Myelocytes % Promyelocytes % Blast Cells % Nucleated RBC % Seg Neutrophils # Man Band Neutrophils # Lymphocytes # (Manual) Abs React Lymphs (Man) Monocytes # (Manual) Eosinophils # (Manual) Basophils # (Manual) Metamyelocytes # Myelocytes # Promyelocytes # Blast Cells # WBC Morphology Hypersegmented Neuts Hyposegmented Neuts Hypogranular Neuts Smudge Cells Toxic Granulation Toxic Vacuolation Dohle Bodies Pelger-Huet Anomaly [place] Rods Platelet Estimate Clumped Platelets Plt Clumps, EDTA Large Platelets Giant Platelets Platelet Satelliting Plt Morphology Comment RBC Morphology Dimorphic RBCs Polychromasia Hypochromasia Poikilocytosis Anisocytosis Microcytosis Macrocytosis Spherocytes Pappenheimer Bodies Sickle Cells Target Cells Tear Drop Cells Ovalocytes Helmet Cells [place] Bodies [place] Cells Bite Cells Crenated Cell Elliptocytes Acanthocytes (Spur) Rouleaux Hemoglobin C Crystals Schistocytes Malaria parasites Daljit Bodies Haptoglobin Hem Pathologist Commnt PT INR Sodium 132 L Potassium 4.1 Chloride 100.8 Carbon Dioxide 19 L Anion Gap 16 BUN 53 H Creatinine 0.9 Estimated GFR > 60 BUN/Creatinine Ratio 58.88 Glucose 160 H POC Glucose 160 H Lactic Acid Calcium 6.7 L Total Bilirubin 23.2 H 23.2 H Direct Bilirubin 18.9 H Indirect Bilirubin 4.3 AST 89 H ALT 44 Alkaline Phosphatase 208 H Total Protein 4.1 L Albumin 1.7 L Albumin/Globulin Ratio 0.7 Blood Type Antibody Screen Antibody Identification Crossmatch 08/29/16 07:56 WBC RBC Hgb Hct MCV MCH MCHC RDW Plt Count Add Manual Diff Total Counted Seg Neuts % (Manual) Band Neutrophils % Lymphocytes % (Manual) Reactive Lymphs % (Man) Monocytes % (Manual) Eosinophils % (Manual) Basophils % (Manual) Metamyelocytes % Myelocytes % Promyelocytes % Blast Cells % Nucleated RBC % Seg Neutrophils # Man Band Neutrophils # Lymphocytes # (Manual) Abs React Lymphs (Man) Monocytes # (Manual) Eosinophils # (Manual) Basophils # (Manual) Metamyelocytes # Myelocytes # Promyelocytes # Blast Cells # WBC Morphology Hypersegmented Neuts Hyposegmented Neuts Hypogranular Neuts Smudge Cells Toxic Granulation Toxic Vacuolation Dohle Bodies Pelger-Huet Anomaly [place] Rods Platelet Estimate Clumped Platelets Plt Clumps, EDTA Large Platelets Giant Platelets Platelet Satelliting Plt Morphology Comment RBC Morphology Dimorphic RBCs Polychromasia Hypochromasia Poikilocytosis Anisocytosis Microcytosis Macrocytosis Spherocytes Pappenheimer Bodies Sickle Cells Target Cells Tear Drop Cells Ovalocytes Helmet Cells [place] Bodies [place] Cells Bite Cells Crenated Cell Elliptocytes Acanthocytes (Spur) Rouleaux Hemoglobin C Crystals Schistocytes Malaria parasites Daljit Bodies Haptoglobin Hem Pathologist Commnt PT INR Sodium Potassium Chloride Carbon Dioxide Anion Gap BUN Creatinine Estimated GFR BUN/Creatinine Ratio Glucose POC Glucose 144 H Lactic Acid Calcium Total Bilirubin Direct Bilirubin Indirect Bilirubin AST ALT Alkaline Phosphatase Total Protein Albumin Albumin/Globulin Ratio Blood Type Antibody Screen Antibody Identification Crossmatch Assessment and Plan Pt seen and examined on 08/28 at 4:30 pm. 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 I discussed the case with Dr Saleh (transplant director) at [facility]. Given patient's lack of insurance, it would be difficult to quickly work-up for liver transplant /transfer, although he states there's a possiblity she could be candidate for artificial liver support. He states the inpatient transplant physician would contact me back if this was a possibility. In the mean time, monitor INR/liver enzymes, and mental status daily. Empirically treat for possible infection. Needs continued close monitoring and supportive care at present time.
[2016-08-28] MEDS ORDERED: VANCOMYCIN VIAL 1,750 MG in NACL 0.9% 500 ML 500 ML IV ONE (12:00)
--- NOTE | 2016-08-28 13:12 | Progress Note ---
Assessment and Plan POD 6 s/p C/S, HELPP syndrome, anemia s/p 4 u prbs, leukocytosis R/O sepsis, - currently being followed by Hematology, ID & GI. abd sono shows minimal ascities. Plan- Dulcolax, clear liquids- diet, watch closely. Subjective - Subjective Date of service: 08/28/16 Principal diagnosis: HELLP syndrome- resolving, status post Interval history: Pt is on HD 6, s/p primary C/S, Probable HELLP syndrome. Currently pt is afebrile with elevated WBC=29. Anitbiotics started empirically. Negative blood and urine cultures from 08/26. Pt more alert today. Remains Jaundice. Now beig followed by GI and Infectious disease. Patient reports: pain well controlled, appetite poor [place]: transported Objective - Vital Signs Latest vital signs: Vital Signs Temp Pulse Pulse Resp BP Pulse Ox 08/28/16 12:00 80 81 21 126/71 100 08/28/16 11:30 81 23 126/62 94 08/28/16 11:22 72 18 126/62 94 08/28/16 11:00 70 20 126/62 08/28/16 10:30 75 22 123/64 08/28/16 10:26 80 123/64 08/28/16 10:05 96 08/28/16 10:00 78 16 123/64 94 08/28/16 09:30 78 21 138/72 08/28/16 09:00 74 21 138/72 08/28/16 08:30 70 20 128/77 93 08/28/16 08:26 71 15 128/77 08/28/16 08:00 78 75 22 128/77 100 08/28/16 07:30 79 19 130/70 94 08/28/16 07:00 77 16 129/66 98 08/28/16 06:30 81 18 133/75 92 08/28/16 06:06 72 15 130/74 98 08/28/16 06:00 77 17 130/74 96 08/28/16 05:30 75 15 119/71 99 08/28/16 05:00 66 16 126/68 90 08/28/16 04:30 69 17 129/72 95 08/28/16 04:16 98.2 F 08/28/16 04:12 76 15 125/74 98 08/28/16 04:00 75 75 15 125/74 97 08/28/16 03:48 75 17 136/77 96 08/28/16 03:30 77 17 125/79 94 08/28/16 03:00 73 16 128/77 100 08/28/16 02:45 98.2 F 74 16 133/75 96 08/28/16 02:30 75 15 134/77 100 08/28/16 02:15 98.6 F 76 15 133/77 99 08/28/16 02:02 76 15 137/78 100 08/28/16 02:00 76 15 137/78 98 08/28/16 01:45 98.6 F 70 14 133/77 100 08/28/16 01:43 77 18 126/77 97 08/28/16 01:15 98.6 F 79 15 137/77 100 08/28/16 01:00 75 14 129/75 97 08/28/16 00:45 98.9 F 75 15 128/71 99 08/28/16 00:15 99.2 F 78 15 118/72 98 08/28/16 00:12 99.2 F 08/28/16 00:00 77 75 15 118/72 95 08/27/16 23:45 99.2 F 79 15 120/67 97 08/27/16 23:30 99.2 F 74 16 127/72 97 08/27/16 23:00 76 19 127/72 97 08/27/16 22:26 97 08/27/16 22:00 77 16 118/72 97 08/27/16 21:18 80 16 118/59 97 08/27/16 21:00 79 17 118/59 96 08/27/16 20:40 99.2 F 08/27/16 20:00 81 81 16 113/68 97 08/27/16 19:00 80 19 113/68 08/27/16 18:42 85 21 136/75 97 08/27/16 18:00 94 H 25 H 136/75 08/27/16 17:22 92 H 20 140/77 08/27/16 17:00 90 24 144/74 93 08/27/16 16:00 98.9 F 89 18 146/78 98 08/27/16 15:00 87 25 H 159/71 99 08/27/16 14:41 97.4 F L 80 19 130/76 08/27/16 14:11 97.4 F L 73 14 120/67 100 08/27/16 14:00 72 17 120/67 98 08/27/16 13:56 74 15 132/66 99 08/27/16 13:41 74 14 132/66 08/27/16 13:11 72 19 120/63 Intake and Output 08/27/16 08/28/16 08/28/16 22:59 06:59 14:59 Intake Total 570 490 890 Output Total 90 360 50 Balance 480 130 840 Intake: IV 450 240 600 D5w 1,000 ml @ 50 mls/hr 450 240 300 IV DIRECT VANESSA Rx#: [id number] Levaquin 750Mg/150Ml 150 300 ml @ 100 mls/hr IV Q24HR VANESSA Rx#:[id number] Oral 120 0 290 Blood Product 250 Leukoreduced Red Blood 250 Cells Unit [id number] Output: Urine 90 360 50 Indwelling Catheter 90 360 50 Other: Total, Intake Amount 0 0 50 Total, Output Amount 30 240 0 Voiding Method Indwelling Catheter Indwelling Catheter Indwelling Catheter # Bowel Movements 0 Weight 80 kg Patient Weight 08/29/16 06:59 Weight 80 kg - Exam Breasts: Present: deferred Cardiovascular: Present: Regular rate, Normal S1, Normal S2 Lungs: Present: Clear to auscultation Abdomen: Present: soft, normal bowel sounds, other Vulva: left: normal (swollen slight on left side) Uterus: Present: normal, firm Extremities: Present: edema Incision: Present: intact (small bloody drainage from incision . ) - Labs Labs: Abnormal lab results 08/22/16 08/27/16 08/27/16 Range/Units 18:54 07:50 08:20 WBC (4.5-11.0) K/mm3 RBC (3.65-5.03) M/mm3 Hgb (10.1-14.3) gm/dl Hct (30.3-42.9) % RDW (13.2-15.2) % Plt Count (140-440) K/mm3 Seg Neuts % (Manual) (40.0-70.0) % Lymphocytes % (Manual) (13.4-35.0) % Nucleated RBC % (0.0-0.9) % Seg Neutrophils # Man (1.8-7.7) K/mm3 Lymphocytes # (Manual) (1.2-5.4) K/mm3 Monocytes # (Manual) (0.0-0.8) K/mm3 PT (12.2-14.9) Sec. INR (0.87-1.13) Sodium (137-145) mmol/L Carbon Dioxide (22-30) mmol/L BUN (7-17) mg/dL Glucose (65-100) mg/dL POC Glucose 141 H (70-105) Calcium (8.4-10.2) mg/dL Total Bilirubin (0.1-1.2) mg/dL AST (5-40) units/L Alkaline Phosphatase (35-129) units/L Total Protein (6.3-8.2) g/dL Albumin (3.9-5) g/dL Vitamin B12 (211-911) pg/mL Urine WBC (Auto) (0.0-6.0) /HPF Miscellaneous Test Flexitest 1 H (()) Crossmatch See Detail 08/27/16 08/27/16 08/27/16 Range/Units 09:55 11:15 11:59 WBC (4.5-11.0) K/mm3 RBC (3.65-5.03) M/mm3 Hgb (10.1-14.3) gm/dl Hct (30.3-42.9) % RDW (13.2-15.2) % Plt Count (140-440) K/mm3 Seg Neuts % (Manual) (40.0-70.0) % Lymphocytes % (Manual) (13.4-35.0) % Nucleated RBC % (0.0-0.9) % Seg Neutrophils # Man (1.8-7.7) K/mm3 Lymphocytes # (Manual) (1.2-5.4) K/mm3 Monocytes # (Manual) (0.0-0.8) K/mm3 PT (12.2-14.9) Sec. INR (0.87-1.13) Sodium (137-145) mmol/L Carbon Dioxide (22-30) mmol/L BUN (7-17) mg/dL Glucose (65-100) mg/dL POC Glucose 133 H 129 H (70-105) Calcium (8.4-10.2) mg/dL Total Bilirubin (0.1-1.2) mg/dL AST (5-40) units/L Alkaline Phosphatase (35-129) units/L Total Protein (6.3-8.2) g/dL Albumin (3.9-5) g/dL Vitamin B12 > 2000 H (211-911) pg/mL Urine WBC (Auto) (0.0-6.0) /HPF Miscellaneous Test (()) Crossmatch 08/27/16 08/27/16 08/27/16 Range/Units 14:06 15:20 16:23 WBC (4.5-11.0) K/mm3 RBC (3.65-5.03) M/mm3 Hgb (10.1-14.3) gm/dl Hct (30.3-42.9) % RDW (13.2-15.2) % Plt Count (140-440) K/mm3 Seg Neuts % (Manual) (40.0-70.0) % Lymphocytes % (Manual) (13.4-35.0) % Nucleated RBC % (0.0-0.9) % Seg Neutrophils # Man (1.8-7.7) K/mm3 Lymphocytes # (Manual) (1.2-5.4) K/mm3 Monocytes # (Manual) (0.0-0.8) K/mm3 PT (12.2-14.9) Sec. INR (0.87-1.13) Sodium (137-145) mmol/L Carbon Dioxide (22-30) mmol/L BUN (7-17) mg/dL Glucose (65-100) mg/dL POC Glucose 148 H 111 H (70-105) Calcium (8.4-10.2) mg/dL Total Bilirubin (0.1-1.2) mg/dL AST (5-40) units/L Alkaline Phosphatase (35-129) units/L Total Protein (6.3-8.2) g/dL Albumin (3.9-5) g/dL Vitamin B12 (211-911) pg/mL Urine WBC (Auto) 10.0 H (0.0-6.0) /HPF Miscellaneous Test (()) Crossmatch 08/27/16 08/27/16 08/27/16 Range/Units 19:35 19:46 21:36 WBC 26.5 H (4.5-11.0) K/mm3 RBC 2.19 L (3.65-5.03) M/mm3 Hgb 6.6 L (10.1-14.3) gm/dl Hct 20.1 L (30.3-42.9) % RDW 15.9 H (13.2-15.2) % Plt Count 78 L (140-440) K/mm3 Seg Neuts % (Manual) (40.0-70.0) % Lymphocytes % (Manual) (13.4-35.0) % Nucleated RBC % (0.0-0.9) % Seg Neutrophils # Man (1.8-7.7) K/mm3 Lymphocytes # (Manual) (1.2-5.4) K/mm3 Monocytes # (Manual) (0.0-0.8) K/mm3 PT (12.2-14.9) Sec. INR (0.87-1.13) Sodium (137-145) mmol/L Carbon Dioxide (22-30) mmol/L BUN (7-17) mg/dL Glucose (65-100) mg/dL POC Glucose 108 H 129 H (70-105) Calcium (8.4-10.2) mg/dL Total Bilirubin (0.1-1.2) mg/dL AST (5-40) units/L Alkaline Phosphatase (35-129) units/L Total Protein (6.3-8.2) g/dL Albumin (3.9-5) g/dL Vitamin B12 (211-911) pg/mL Urine WBC (Auto) (0.0-6.0) /HPF Miscellaneous Test (()) Crossmatch 08/28/16 08/28/16 08/28/16 Range/Units 00:18 02:22 03:19 WBC (4.5-11.0) K/mm3 RBC (3.65-5.03) M/mm3 Hgb (10.1-14.3) gm/dl Hct (30.3-42.9) % RDW (13.2-15.2) % Plt Count (140-440) K/mm3 Seg Neuts % (Manual) (40.0-70.0) % Lymphocytes % (Manual) (13.4-35.0) % Nucleated RBC % (0.0-0.9) % Seg Neutrophils # Man (1.8-7.7) K/mm3 Lymphocytes # (Manual) (1.2-5.4) K/mm3 Monocytes # (Manual) (0.0-0.8) K/mm3 PT (12.2-14.9) Sec. INR (0.87-1.13) Sodium (137-145) mmol/L Carbon Dioxide (22-30) mmol/L BUN (7-17) mg/dL Glucose (65-100) mg/dL POC Glucose 114 H 121 H 120 H (70-105) Calcium (8.4-10.2) mg/dL Total Bilirubin (0.1-1.2) mg/dL AST (5-40) units/L Alkaline Phosphatase (35-129) units/L Total Protein (6.3-8.2) g/dL Albumin (3.9-5) g/dL Vitamin B12 (211-911) pg/mL Urine WBC (Auto) (0.0-6.0) /HPF Miscellaneous Test (()) Crossmatch 08/28/16 08/28/16 08/28/16 Range/Units 05:30 05:30 05:30 WBC 29.9 H (4.5-11.0) K/mm3 RBC 2.54 L (3.65-5.03) M/mm3 Hgb 8.0 L (10.1-14.3) gm/dl Hct 23.5 L (30.3-42.9) % RDW 15.4 H (13.2-15.2) % Plt Count 49 L (140-440) K/mm3 Seg Neuts % (Manual) 91.5 H (40.0-70.0) % Lymphocytes % (Manual) 2.0 L (13.4-35.0) % Nucleated RBC % 12.0 H (0.0-0.9) % Seg Neutrophils # Man 27.4 H (1.8-7.7) K/mm3 Lymphocytes # (Manual) 0.6 L (1.2-5.4) K/mm3 Monocytes # (Manual) 0.9 H (0.0-0.8) K/mm3 PT 19.0 H (12.2-14.9) Sec. INR 1.60 H (0.87-1.13) Sodium 133 L (137-145) mmol/L Carbon Dioxide 19 L (22-30) mmol/L BUN 47 H (7-17) mg/dL Glucose 130 H (65-100) mg/dL POC Glucose (70-105) Calcium 6.7 L (8.4-10.2) mg/dL Total Bilirubin 25.3 H (0.1-1.2) mg/dL AST 170 H (5-40) units/L Alkaline Phosphatase 252 H (35-129) units/L Total Protein 4.2 L (6.3-8.2) g/dL Albumin 1.5 L (3.9-5) g/dL Vitamin B12 (211-911) pg/mL Urine WBC (Auto) (0.0-6.0) /HPF Miscellaneous Test (()) Crossmatch 08/28/16 08/28/16 Range/Units 06:03 07:55 WBC (4.5-11.0) K/mm3 RBC (3.65-5.03) M/mm3 Hgb (10.1-14.3) gm/dl Hct (30.3-42.9) % RDW (13.2-15.2) % Plt Count (140-440) K/mm3 Seg Neuts % (Manual) (40.0-70.0) % Lymphocytes % (Manual) (13.4-35.0) % Nucleated RBC % (0.0-0.9) % Seg Neutrophils # Man (1.8-7.7) K/mm3 Lymphocytes # (Manual) (1.2-5.4) K/mm3 Monocytes # (Manual) (0.0-0.8) K/mm3 PT (12.2-14.9) Sec. INR (0.87-1.13) Sodium (137-145) mmol/L Carbon Dioxide (22-30) mmol/L BUN (7-17) mg/dL Glucose (65-100) mg/dL POC Glucose 142 H 141 H (70-105) Calcium (8.4-10.2) mg/dL Total Bilirubin (0.1-1.2) mg/dL AST (5-40) units/L Alkaline Phosphatase (35-129) units/L Total Protein (6.3-8.2) g/dL Albumin (3.9-5) g/dL Vitamin B12 (211-911) pg/mL Urine WBC (Auto) (0.0-6.0) /HPF Miscellaneous Test (()) Crossmatch
--- NOTE | 2016-08-28 14:28 | Progress Note ---
Assessment and Plan Assessment and plan: Patient is 41 yo woman who was in her 3rd trimester of presented due to decrease movement, was done. Hospitalist was called for viral illness, which was diagnosis prior to hospitalization. After patient was evaluated by Hospitalist, Dr. Brown, for the viral illness in recovery room after the ; she developed hypotension and jaundice. She was transferred to the ICU under the [facility] service. Operative note as follows, "Date of operation 08/22/16, Diagnosis #1 Intrauterine gestation at 31+ weeks, # 2 NRFHT, #3 viral infection, #4 BPP 09/11, #5 meconium, Postop diagnosis #1-6 same as above, #7 delivery of viable fetus male operation performed primary low segment transverse , #9 PP hemorrhage, #10 uterine atony, Surgeon :Dr. Melton Anesthesia: General Anesthesiologist: Dr. Mendoza Estimated blood loss 1200 mL, Lindsey catheter to bladder 400 mL clear yellow urine * HELLP syndrome suspected, baby delivered,, LFTs increased again today. With worsening thrombocytopenia. although patient remains very lethergic will continue close monitoring . GI consult to assess ultrasound showing pericholecystic fluid and wall thickening * Hypotension: Resolved. Continue gentle IV fluids * Hypoglycemia:improved * Leukocytosis with sepsis syndrome rule out aspiration-started on Levaquin on empiric IV vancomycin and ID input appreciated * Hyperkalemia: Recheck * Severe protein calorie malnutrition albumin 1.6, present on admission * Acute Kidney injury on CKD likely secodary to vasomotor nephropathy and in the setting of hypotension. Follow in am * Acute blood loss anemia- Transfused. recheck H/H concerned for Hemolysis- Hematology consulted. Chills with transfusion today, R/O TRALI * Thrombocytopenia -we'll obtain an ophthalmology consult to rule out any other complicating pathology. * Metabolic encephalopathy -If patient continues to remain lethergic and unable to take PO will need Neurology eval * Hemolytic Anemia with Jaundice as part of the HELLP syndrome hematology oncology following * DVT/GI prophy * Discussed in detail with family at bedside The high probability of a clinically significant, sudden or life threatening deterioration of the [hematologic, hepatology, neurology] system(s) required my full and direct attention, intervention and personal management. The aggregate critical care time was [40] minutes. This time is in addition to time spent performing reported procedures but includes the following: [x] Data Review and interpretation [x] Patient assessment and monitoring of vital signs [x] Documentation [x] Medication orders and management History Interval history: Patient seen and examined. Follow up HELLP Syndrome. Patient remains in intensive care unit,sawake this morning. But still Lethargic good urine output and not requiring any pressors. No cp, n/v. Imaging, old records, testing, labs, nursing notes reviewed. Hospitalist Physical - Physical exam Narrative exam: VITAL SIGNS: Reviewed. GENERAL: The patient appeared well nourished and normally developed. Vital signs as documented. HEAD: No signs of head trauma. EYES: Pupils are equal. icteric pupils EARS: Hearing grossly intact. MOUTH: Oropharynx is normal. NECK: No adenopathy, no JVD. CHEST: Chest with clear breath sounds bilaterally. No wheezes, rales, or rhonchi. CARDIAC: Regular rate and rhythm. S1 and S2, without murmurs, gallops, or rubs. VASCULAR: Peripheral pulses normal and equal in all extremities. ABDOMEN: Soft, tender in the lower quadrant status post surgical incision pressure dressing in place no other drainage noted. No sign of distention. No rebound or guarding, and no masses palpated. Bowel Sounds normal. MUSCULOSKELETAL: Good range of motion of all major joints. Extremities without clubbing, cyanosis. NEUROLOGIC EXAM: Awake, lethargic and oriented to person and place. No focal sensory or strength deficits. Follows simple commands. PSYCHIATRIC: Mood normal. SKIN: Jaundiced. Surgical incision noted no overt drainage. Generalized anasarca. - Constitutional Vitals: Temp Pulse Resp BP Pulse Ox 98.2 F 75 18 129/77 94 08/28/16 04:16 08/28/16 13:30 08/28/16 13:30 08/28/16 13:30 08/28/16 13:30 General appearance: Present: no acute distress, other (lethargic) Results - Labs CBC & Chem 7: 08/28/16 05:30 08/28/16 05:30 Labs: Laboratory Last Values WBC 29.9 K/mm3 (4.5-11.0) H 08/28/16 05:30 RBC 2.54 M/mm3 (3.65-5.03) L 08/28/16 05:30 Hgb 8.0 gm/dl (10.1-14.3) L 08/28/16 05:30 Hct 23.5 % (30.3-42.9) L 08/28/16 05:30 MCV 93 fl (79-97) 08/28/16 05:30 MCH 32 pg (28-32) 08/28/16 05:30 MCHC 34 % (30-34) 08/28/16 05:30 RDW 15.4 % (13.2-15.2) H 08/28/16 05:30 Plt Count 49 K/mm3 (140-440) L 08/28/16 05:30 Lymph % (Auto) 14.6 % (13.4-35.0) 08/23/16 05:19 [place] % (Auto) 6.6 % (0.0-7.3) 08/23/16 05:19 Eos % (Auto) 1.2 % (0.0-4.3) 08/23/16 05:19 Baso % (Auto) 0.4 % (0.0-1.8) 08/23/16 05:19 Lymph # Public Policy Coordinator 08/26/16 04:50 [place] # 1.1 K/mm3 (0.0-0.8) H 08/23/16 05:19 Eos # 0.2 K/mm3 (0.0-0.4) 08/23/16 05:19 Baso # 0.1 K/mm3 (0.0-0.1) 08/23/16 05:19 Add Manual Diff Complete 08/28/16 05:30 Total Counted 200 08/28/16 05:30 Seg Neutrophils % Public Policy Coordinator 08/28/16 05:30 Seg Neuts % (Manual) 91.5 % (40.0-70.0) H 08/28/16 05:30 Band Neutrophils % 2.0 % 08/28/16 05:30 Lymphocytes % (Manual) 2.0 % (13.4-35.0) L 08/28/16 05:30 Reactive Lymphs % (Man) 0 % 08/28/16 05:30 Monocytes % (Manual) 3.0 % (0.0-7.3) 08/28/16 05:30 Eosinophils % (Manual) 0 % (0.0-4.3) 08/28/16 05:30 Basophils % (Manual) 0 % (0.0-1.8) 08/28/16 05:30 Metamyelocytes % 1.5 % 08/28/16 05:30 Myelocytes % 0 % 08/28/16 05:30 Promyelocytes % 0 % 08/28/16 05:30 Blast Cells % 0 % 08/28/16 05:30 Nucleated RBC % 12.0 % (0.0-0.9) H 08/28/16 05:30 Seg Neutrophils # 13.1 K/mm3 (1.8-7.7) H 08/23/16 05:19 Seg Neutrophils # Man 27.4 K/mm3 (1.8-7.7) H 08/28/16 05:30 Band Neutrophils # 0.6 K/mm3 08/28/16 05:30 Lymphocytes # (Manual) 0.6 K/mm3 (1.2-5.4) L 08/28/16 05:30 Abs React Lymphs (Man) 0.0 K/mm3 08/28/16 05:30 Monocytes # (Manual) 0.9 K/mm3 (0.0-0.8) H 08/28/16 05:30 Eosinophils # (Manual) 0.0 K/mm3 (0.0-0.4) 08/28/16 05:30 Basophils # (Manual) 0.0 K/mm3 (0.0-0.1) 08/28/16 05:30 Metamyelocytes # 0.4 K/mm3 08/28/16 05:30 Myelocytes # 0.0 K/mm3 08/28/16 05:30 Promyelocytes # 0.0 K/mm3 08/28/16 05:30 Blast Cells # 0.0 K/mm3 08/28/16 05:30 WBC Morphology Not Reportable 08/28/16 05:30 Hypersegmented Neuts Not Reportable 08/28/16 05:30 Hyposegmented Neuts Not Reportable 08/28/16 05:30 Hypogranular Neuts Not Reportable 08/28/16 05:30 Smudge Cells Not Reportable 08/28/16 05:30 Toxic Granulation Not Reportable 08/28/16 05:30 Toxic Vacuolation Not Reportable 08/28/16 05:30 Dohle Bodies Not Reportable 08/28/16 05:30 Pelger-Huet Anomaly Not Reportable 08/28/16 05:30 Alaina Rods Not Reportable 08/28/16 05:30 Platelet Estimate Appears decreased 08/28/16 05:30 Clumped Platelets Not Reportable 08/28/16 05:30 Plt Clumps, EDTA Not Reportable 08/28/16 05:30 Large Platelets Not Reportable 08/28/16 05:30 Giant Platelets Not Reportable 08/28/16 05:30 Platelet Satelliting Not Reportable 08/28/16 05:30 Plt Morphology Comment Not Reportable 08/28/16 05:30 RBC Morphology Not Reportable 08/28/16 05:30 Dimorphic RBCs Not Reportable 08/28/16 05:30 Polychromasia 1+ 08/28/16 05:30 Hypochromasia Not Reportable 08/28/16 05:30 Poikilocytosis Not Reportable 08/28/16 05:30 Anisocytosis 2+ 08/28/16 05:30 Microcytosis Few 08/28/16 05:30 Macrocytosis Not Reportable 08/28/16 05:30 Spherocytes Not Reportable 08/28/16 05:30 Pappenheimer Bodies Not Reportable 08/28/16 05:30 Sickle Cells Not Reportable 08/28/16 05:30 Target Cells Not Reportable 08/28/16 05:30 Tear Drop Cells Not Reportable 08/28/16 05:30 Ovalocytes Few 08/28/16 05:30 Helmet Cells Not Reportable 08/28/16 05:30 [place] Bodies Not Reportable 08/28/16 05:30 [place] Rings Not Reportable 08/28/16 05:30 [place] Cells Not Reportable 08/28/16 05:30 Bite Cells Not Reportable 08/28/16 05:30 Crenated Cell Not Reportable 08/28/16 05:30 Elliptocytes Not Reportable 08/28/16 05:30 Acanthocytes (Spur) Not Reportable 08/28/16 05:30 Rouleaux Not Reportable 08/28/16 05:30 Hemoglobin C Crystals Not Reportable 08/28/16 05:30 Schistocytes Not Reportable 08/28/16 05:30 Malaria parasites Not Reportable 08/28/16 05:30 Percent Retic 6.59 % (0.78-2.58) H 08/27/16 11:15 Sickle Cell Screen Negative (Negative) 08/22/16 18:48 Daljit Bodies Not Reportable 08/28/16 05:30 Hem Pathologist Commnt No 08/28/16 05:30 PT 19.0 Sec. (12.2-14.9) H 08/28/16 05:30 INR 1.60 (0.87-1.13) H 08/28/16 05:30 APTT 42.3 Sec. (24.2-36.6) H 08/25/16 05:45 POC ABG pH 7.479 (7.35-7.45) H 08/24/16 14:12 POC ABG pCO2 29.6 (35-45) L 08/24/16 14:12 POC ABG pO2 62 (80-105) L 08/24/16 14:12 POC ABG HCO3 21.9 08/24/16 14:12 POC ABG Total CO2 23 08/24/16 14:12 POC ABG O2 Sat 93 08/24/16 14:12 POC ABG Base Excess -2 08/24/16 14:12 FiO2 3 % 08/24/16 14:12 Sodium 133 mmol/L (137-145) L 08/28/16 05:30 Potassium 4.5 mmol/L (3.6-5.0) 08/28/16 05:30 Chloride 101.4 mmol/L (98-107) 08/28/16 05:30 Carbon Dioxide 19 mmol/L (22-30) L 08/28/16 05:30 Anion Gap 17 mmol/L 08/28/16 05:30 BUN 47 mg/dL (7-17) H 08/28/16 05:30 Creatinine 0.8 mg/dL (0.7-1.2) 08/28/16 05:30 Estimated GFR > 60 ml/min 08/28/16 05:30 BUN/Creatinine Ratio 58.75 % 08/28/16 05:30 Glucose 130 mg/dL (65-100) H 08/28/16 05:30 POC Glucose 141 (70-105) H 08/28/16 07:55 Lactic Acid 3.0 mmol/L (0.7-2.0) H* 08/24/16 05:00 Calcium 6.7 mg/dL (8.4-10.2) L 08/28/16 05:30 Magnesium 4.5 mg/dL (1.7-2.3) H 08/26/16 04:50 Total Bilirubin 25.3 mg/dL (0.1-1.2) H 08/28/16 05:30 Direct Bilirubin 6.6 mg/dL (0-0.2) H 08/26/16 08:26 Indirect Bilirubin 1.0 mg/dL 08/26/16 08:26 AST 170 units/L (5-40) H 08/28/16 05:30 ALT 48 units/L (7-56) 08/28/16 05:30 Alkaline Phosphatase 252 units/L (35-129) H 08/28/16 05:30 Ammonia 53.0 umol/L (25-60) 08/27/16 11:15 Lactate Dehydrogenase 844 units/L (91-180) H 08/27/16 08:40 Total Creatine Kinase 1295 units/L (30-135) H 08/24/16 05:00 NT-Pro-B Natriuret Pep 241.0 pg/mL (0-450) 08/27/16 16:30 Total Protein 4.2 g/dL (6.3-8.2) L 08/28/16 05:30 Albumin 1.5 g/dL (3.9-5) L 08/28/16 05:30 Albumin/Globulin Ratio 0.6 % 08/28/16 05:30 LDL Cholesterol Direct 38 mg/dL (50-130) L 08/23/16 07:50 Vitamin B12 > 2000 pg/mL (211-911) H 08/27/16 11:15 Folate 10.54 ng/mL (7.3-26.0) 08/27/16 11:15 Urine Color [place] (Yellow) 08/27/16 15:20 Urine Turbidity Clear (Clear) 08/27/16 15:20 Urine pH 6.0 (5.0-7.0) 08/27/16 15:20 Ur Specific [place] 1.018 (1.003-1.030) 08/27/16 15:20 Urine Protein 30 mg/dl mg/dL (Negative) 08/27/16 15:20 Urine Glucose (UA) Neg mg/dL (Negative) 08/27/16 15:20 Urine Ketones Neg mg/dL (Negative) 08/27/16 15:20 Urine Blood Mod (Negative) 08/27/16 15:20 Urine Nitrite Neg (Negative) 08/27/16 15:20 Urine Bilirubin Mod (Negative) 08/27/16 15:20 Urine Ictotest Positive (Negative) 08/27/16 15:20 Urine Urobilinogen 4.0 mg/dL (<2.0) 08/27/16 15:20 Ur Leukocyte Esterase Neg (Negative) 08/27/16 15:20 Urine WBC (Auto) 10.0 /HPF (0.0-6.0) H 08/27/16 15:20 Urine RBC (Auto) 7.0 /HPF (0.0-6.0) 08/27/16 15:20 U Epithel Cells (Auto) < 1.0 /HPF (0-13.0) 08/27/16 15:20 Granular Casts 4 /LPF 08/27/16 15:20 Urine Mucus Few /HPF 08/27/16 15:20 Urine Opiates Screen Presumptive negative 08/22/16 18:30 Urine Methadone Screen Presumptive negative 08/22/16 18:30 Ur Barbiturates Screen Presumptive negative 08/22/16 18:30 Ur Phencyclidine Scrn Presumptive negative 08/22/16 18:30 Ur Amphetamines Screen Presumptive negative 08/22/16 18:30 U Benzodiazepines Scrn Presumptive negative 08/22/16 18:30 Urine Cocaine Screen Presumptive negative 08/22/16 18:30 U Marijuana (THC) Screen Presumptive negative 08/22/16 18:30 Drugs of Abuse Note Disclamer 08/22/16 18:30 RPR Nonreactive (Nonreactive) 08/22/16 18:34 CMV DNA PCR log copy director/mL See scanned report 08/23/16 13:03 Hepatitis A IgM Ab -1 (NonReactive) 08/27/16 11:15 Hep Bs Antigen Non-reactive (Negative) 08/22/16 18:34 Hepatitis C Antibody Non-reactive (NonReactive) 08/22/16 18:34 Herpes Simplex Source Swab (()) 08/25/16 11:45 HSV I DNA PCR Not detected (Not Detected) 08/25/16 11:45 HSV II DNA PCR Not detected (Not Detected) 08/25/16 11:45 HIV 1&2 Antibody Rapid Non react (Non React) 08/23/16 09:25 HIV P24 Antigen Non react (Non React) 08/23/16 09:25 Rubella IgG Antibody Immune (Immune) 08/22/16 18:34 Rubella IgM Antibody <0.90 (<0.90) 08/22/16 18:34 Schistocytes Smear Rare 08/26/16 04:50 Toxoplasma IgG Ab <=0.90 (<=0.90) 08/22/16 18:34 Toxoplasma IgM Ab Negative (Negative) 08/22/16 18:34 Miscellaneous Test Flexitest 1 (()) H 08/22/16 18:54 Blood Type O NEGATIVE 08/27/16 08:20 Antibody Screen Positive 08/27/16 08:20 Antibody Identification Anti-D (Passively Aquired) 08/27/16 08:20 Direct Antiglob Test Negative 08/27/16 08:20 JYOTI, Poly Interpret Negative 08/27/16 08:20 KB % Cells Negative 08/22/16 Unknown Crossmatch See Detail 08/27/16 08:20 Pre-Trans JYOTI Negative 08/27/16 15:20 Pre-Trans JYOTI Poly Negative 08/27/16 15:20 Post-Trans Blood Type O negative 08/27/16 15:20 Post-Trans JYOTI Negative 08/27/16 15:20 Post-Trans JYOTI Poly Negative 08/27/16 15:20 - Imaging and Cardiology Chest x-ray: image reviewed (no acute cardiopulmonary findings)
[2016-08-28] MEDS: DULCOLAX PO PRN (14:57)
[2016-08-28 17:38] LABS: Hematocrit 21.6 % (30.3-42.9); Hemoglobin 7.2 gm/dl (10.1-14.3); Mean Corpuscular HGB Conc 33 % (30-34); Mean Corpuscular Hemoglobin 31 pg (28-32); Mean Corpuscular Volume 93 fl (79-97); Red Blood Count 2.33 M/mm3 (3.65-5.03); Red Cell Distribution Width 15.6 % (13.2-15.2)
[2016-08-28 17:46] LABS: Platelet Count 53 K/mm3 (140-440); White Blood Count 23.1 K/mm3 (4.5-11.0)
[2016-08-28 17:53] LABS: INR 1.35 (0.87-1.13)
[2016-08-28 17:56] LABS: Alanine Aminotransferase 46 units/L (7-56); Albumin 1.7 g/dL (3.9-5); Albumin/Globulin Ratio 0.7 %; Alkaline Phosphatase 217 units/L (35-129); Blood Urea Nitrogen 54 mg/dL (7-17); Calcium 6.7 mg/dL (8.4-10.2); Carbon Dioxide 19 mmol/L (22-30); Chloride 102.1 mmol/L (98-107); Glucose 134 mg/dL (65-100); Potassium 4.2 mmol/L (3.6-5.0); Sodium 134 mmol/L (137-145); Total Protein 4.1 g/dL (6.3-8.2)
--- NOTE | 2016-08-28 17:59 | Event Note ---
Date: 08/28/16 Spoke with Crisis Counselor at [facility]- He States baby Lucy has liver and kidney issues and Anemia similar to the mother. I have given him the results of the TORCH titers and Paravovirus results. Dr Taylor" s # [phone]. Baby is currently intubated.
[2016-08-28 18:00] LABS: Anion Gap 17 mmol/L
[2016-08-28 18:03] LABS: Bilirubin,Total 23.5 mg/dL (0.1-1.2)
--- NOTE | 2016-08-28 20:24 | Progress Note ---
Assessment and Plan Pulmonary infiltrates after related to single blood transfusion. Cleared rapidly next morning CXR- suspicious for TRALI but V/S and oximetry adequate. Doubt TRACO, aspiration HELLP syndrome, suspected, status post Hypotension, resolved . Anemia. Cause still to be determined. Hypoglycemia: IV dextrose. on monitoring D%50W as needed. Abnormal liver enzymes / hyperbilirubinemia and jaundice. Obstructive with some preadmission [facility] GI Sx possible Renal failure. Improving but still abnormal Thrombocytopenia. No bleeding reported Metabolic encephalopathy. Recommendations, Nothing by mouth Aspiration precautions Elevate head of bed Get abdominal ultrasound report GI consult ID consult recheck H&H Family at bedside during evaluation ,discussed with pt. Reviewed with performance management consultant , ICU team in detail. Critical care time was 35 minutes in patient evaluation [id number] coordination of care. Subjective Date of service: 08/28/16 Principal diagnosis: Thrombocytopenia,Jaundice HELLP syndrome- resolving, status post Interval history: More alert this morning. Had another PRBC last night w/o incident. Hx review with family shows prior GI problems with fatty food intolerance ( N.V and upper abdominal pain ) noted week prior her C/S and admission. Objective Vital Signs - 12hr 08/28/16 08/28/16 08/28/16 08:26 08:30 09:00 Pulse Rate 71 70 74 Pulse Rate [ From Monitor] Respiratory 15 20 21 Rate Blood Pressure 128/77 128/77 138/72 O2 Sat by Pulse 93 Oximetry 08/28/16 08/28/16 08/28/16 09:30 10:00 10:05 Pulse Rate 78 78 Pulse Rate [ From Monitor] Respiratory 21 16 Rate Blood Pressure 138/72 123/64 O2 Sat by Pulse 94 96 Oximetry 08/28/16 08/28/16 08/28/16 10:26 10:30 11:00 Pulse Rate 80 75 70 Pulse Rate [ From Monitor] Respiratory 22 20 Rate Blood Pressure 123/64 123/64 126/62 O2 Sat by Pulse Oximetry 08/28/16 08/28/16 08/28/16 11:22 11:30 12:00 Pulse Rate 72 81 80 Pulse Rate [ 81 From Monitor] Respiratory 18 23 21 Rate Blood Pressure 126/62 126/62 126/71 O2 Sat by Pulse 94 94 100 Oximetry 08/28/16 08/28/16 08/28/16 12:18 12:30 13:00 Pulse Rate 81 82 82 Pulse Rate [ From Monitor] Respiratory 21 21 17 Rate Blood Pressure 126/71 126/71 129/77 O2 Sat by Pulse 91 Oximetry 08/28/16 08/28/16 08/28/16 13:30 13:40 14:00 Pulse Rate 75 76 75 Pulse Rate [ From Monitor] Respiratory 18 18 22 Rate Blood Pressure 129/77 129/77 127/70 O2 Sat by Pulse 94 90 92 Oximetry 08/28/16 08/28/16 08/28/16 14:30 14:44 14:46 Pulse Rate 77 73 75 Pulse Rate [ From Monitor] Respiratory 19 14 23 Rate Blood Pressure 127/70 127/70 127/70 O2 Sat by Pulse Oximetry 08/28/16 08/28/16 08/28/16 15:00 15:30 16:00 Pulse Rate 72 68 68 Pulse Rate [ 71 From Monitor] Respiratory 21 14 15 Rate Blood Pressure 128/68 128/68 118/68 O2 Sat by Pulse 96 96 Oximetry 08/28/16 08/28/16 08/28/16 16:11 16:30 17:00 Pulse Rate 75 71 71 Pulse Rate [ From Monitor] Respiratory 19 20 21 Rate Blood Pressure 118/68 118/68 127/66 O2 Sat by Pulse 96 96 95 Oximetry 08/28/16 08/28/16 08/28/16 17:30 18:00 18:12 Pulse Rate 74 72 70 Pulse Rate [ From Monitor] Respiratory 19 19 20 Rate Blood Pressure 127/66 127/71 127/71 O2 Sat by Pulse 96 95 97 Oximetry 08/28/16 08/28/16 08/28/16 18:30 19:00 19:30 Pulse Rate 68 65 67 Pulse Rate [ From Monitor] Respiratory 17 18 16 Rate Blood Pressure 127/71 126/69 126/69 O2 Sat by Pulse 97 96 94 Oximetry Constitutional: no acute distress, alert, other (sleepy, do responsive and answering questions) Eyes: icteric ENT: oropharynx moist Neck: supple Ascultation: Bilateral: clear Cardiovascular: regular rate and rhythm Gastrointestinal: normoactive bowel sounds, other (wound healing well. Some wound and epigastric RUQ tendeness) Integumentary: normal Extremities: no cyanosis, no cyanosis, no cyanosis Neurologic: non-focal exam, pupils equal and round, CN II-XII normal, motor strength normal and CBC and BMP: 08/28/16 16:45 08/28/16 16:45 ABG, PT/INR, D-dimer: ABG POC ABG pH 7.479 (7.35-7.45) H 08/24/16 14:12 POC ABG pCO2 29.6 (35-45) L 08/24/16 14:12 POC ABG pO2 62 (80-105) L 08/24/16 14:12 POC ABG HCO3 21.9 08/24/16 14:12 POC ABG Total CO2 23 08/24/16 14:12 POC ABG O2 Sat 93 08/24/16 14:12 PT/INR, D-dimer PT 16.6 Sec. (12.2-14.9) H 08/28/16 16:45 INR 1.35 (0.87-1.13) H 08/28/16 16:45 Abnormal lab findings: Abnormal Labs 08/22/16 08/22/16 08/22/16 16:00 16:00 17:38 WBC RBC 3.64 L Hgb Hct RDW Plt Count 137 L Lymph % (Auto) 12.3 L [place] # Seg Neutrophils % 81.9 H Seg Neuts % (Manual) Lymphocytes % (Manual) Nucleated RBC % Seg Neutrophils # 8.3 H Seg Neutrophils # Man Lymphocytes # (Manual) Monocytes # (Manual) Percent Retic Haptoglobin PT INR APTT POC ABG pH 7.117 L POC ABG pCO2 49.2 H POC ABG pO2 20 L Sodium Potassium Chloride Carbon Dioxide BUN Creatinine Glucose POC Glucose Lactic Acid Calcium Magnesium Total Bilirubin Direct Bilirubin AST ALT Alkaline Phosphatase Ammonia Lactate Dehydrogenase Total Creatine Kinase Total Protein Albumin LDL Cholesterol Direct Vitamin B12 Urine WBC (Auto) Miscellaneous Test Crossmatch See Detail 08/22/16 08/22/16 08/22/16 17:43 18:48 18:54 WBC 13.2 H RBC 3.62 L Hgb Hct RDW Plt Count 115 L Lymph % (Auto) 8.8 L [place] # Seg Neutrophils % 87.0 H Seg Neuts % (Manual) Lymphocytes % (Manual) Nucleated RBC % Seg Neutrophils # 11.5 H Seg Neutrophils # Man Lymphocytes # (Manual) Monocytes # (Manual) Percent Retic Haptoglobin PT INR APTT POC ABG pH 7.078 L POC ABG pCO2 POC ABG pO2 25 L Sodium Potassium Chloride Carbon Dioxide BUN Creatinine Glucose POC Glucose Lactic Acid Calcium Magnesium Total Bilirubin Direct Bilirubin AST ALT Alkaline Phosphatase Ammonia Lactate Dehydrogenase Total Creatine Kinase Total Protein Albumin LDL Cholesterol Direct Vitamin B12 Urine WBC (Auto) Miscellaneous Test Flexitest 1 H Crossmatch 08/23/16 08/23/16 08/23/16 05:19 07:50 07:50 WBC 17.0 H RBC 3.16 L Hgb 9.9 L 9.7 L Hct 30.0 L RDW Plt Count 125 L Lymph % (Auto) [place] # 1.1 H Seg Neutrophils % 77.2 H Seg Neuts % (Manual) Lymphocytes % (Manual) Nucleated RBC % Seg Neutrophils # 13.1 H Seg Neutrophils # Man Lymphocytes # (Manual) Monocytes # (Manual) Percent Retic Haptoglobin PT INR APTT POC ABG pH POC ABG pCO2 POC ABG pO2 Sodium Potassium 5.9 H Chloride Carbon Dioxide 12 L BUN 18 H Creatinine 3.1 H Glucose 39 L* POC Glucose Lactic Acid Calcium Magnesium Total Bilirubin 4.3 H Direct Bilirubin 3.9 H AST 676 H ALT 470 H Alkaline Phosphatase 394 H Ammonia Lactate Dehydrogenase Total Creatine Kinase Total Protein 4.3 L Albumin 1.6 L LDL Cholesterol Direct 38 L Vitamin B12 Urine WBC (Auto) Miscellaneous Test Crossmatch 08/23/16 08/23/16 08/23/16 08:19 08:39 09:00 WBC RBC Hgb Hct RDW Plt Count Lymph % (Auto) [place] # Seg Neutrophils % Seg Neuts % (Manual) Lymphocytes % (Manual) Nucleated RBC % Seg Neutrophils # Seg Neutrophils # Man Lymphocytes # (Manual) Monocytes # (Manual) Percent Retic Haptoglobin PT 23.7 H INR 2.11 H APTT POC ABG pH POC ABG pCO2 POC ABG pO2 Sodium Potassium Chloride Carbon Dioxide BUN Creatinine Glucose POC Glucose 52 L 178 H Lactic Acid Calcium Magnesium Total Bilirubin Direct Bilirubin AST ALT Alkaline Phosphatase Ammonia Lactate Dehydrogenase Total Creatine Kinase Total Protein Albumin LDL Cholesterol Direct Vitamin B12 Urine WBC (Auto) Miscellaneous Test Crossmatch 08/23/16 08/23/16 08/23/16 09:25 11:05 12:02 WBC RBC Hgb Hct RDW Plt Count Lymph % (Auto) [place] # Seg Neutrophils % Seg Neuts % (Manual) Lymphocytes % (Manual) Nucleated RBC % Seg Neutrophils # Seg Neutrophils # Man Lymphocytes # (Manual) Monocytes # (Manual) Percent Retic Haptoglobin PT INR APTT POC ABG pH POC ABG pCO2 POC ABG pO2 Sodium Potassium Chloride Carbon Dioxide BUN Creatinine Glucose POC Glucose 134 H 130 H Lactic Acid 10.0 H* Calcium Magnesium Total Bilirubin Direct Bilirubin AST ALT Alkaline Phosphatase Ammonia Lactate Dehydrogenase Total Creatine Kinase Total Protein Albumin LDL Cholesterol Direct Vitamin B12 Urine WBC (Auto) Miscellaneous Test Crossmatch 08/23/16 08/23/16 08/23/16 12:26 12:49 15:30 WBC RBC Hgb Hct RDW Plt Count Lymph % (Auto) [place] # Seg Neutrophils % Seg Neuts % (Manual) Lymphocytes % (Manual) Nucleated RBC % Seg Neutrophils # Seg Neutrophils # Man Lymphocytes # (Manual) Monocytes # (Manual) Percent Retic Haptoglobin PT INR APTT POC ABG pH POC ABG pCO2 POC ABG pO2 Sodium Potassium 5.5 H 5.1 H Chloride Carbon Dioxide 13 L BUN 19 H Creatinine 3.1 H Glucose 124 H POC Glucose 145 H Lactic Acid Calcium 8.3 L Magnesium Total Bilirubin 4.4 H Direct Bilirubin AST 521 H ALT 377 H Alkaline Phosphatase 345 H Ammonia Lactate Dehydrogenase 511 H Total Creatine Kinase Total Protein 4.6 L Albumin 1.9 L LDL Cholesterol Direct Vitamin B12 Urine WBC (Auto) Miscellaneous Test Crossmatch 08/23/16 08/23/16 08/23/16 15:30 15:30 15:30 WBC RBC Hgb Hct RDW Plt Count Lymph % (Auto) [place] # Seg Neutrophils % Seg Neuts % (Manual) Lymphocytes % (Manual) Nucleated RBC % Seg Neutrophils # Seg Neutrophils # Man Lymphocytes # (Manual) Monocytes # (Manual) Percent Retic Haptoglobin PT 21.4 H INR 1.86 H APTT POC ABG pH POC ABG pCO2 POC ABG pO2 Sodium Potassium Chloride Carbon Dioxide BUN Creatinine Glucose POC Glucose Lactic Acid 7.1 H* Calcium Magnesium Total Bilirubin Direct Bilirubin AST ALT Alkaline Phosphatase Ammonia Lactate Dehydrogenase Total Creatine Kinase 1275 H Total Protein Albumin LDL Cholesterol Direct Vitamin B12 Urine WBC (Auto) Miscellaneous Test Crossmatch 08/23/16 08/23/16 08/23/16 15:56 16:19 17:30 WBC RBC Hgb Hct RDW Plt Count Lymph % (Auto) [place] # Seg Neutrophils % Seg Neuts % (Manual) Lymphocytes % (Manual) Nucleated RBC % Seg Neutrophils # Seg Neutrophils # Man Lymphocytes # (Manual) Monocytes # (Manual) Percent Retic Haptoglobin PT INR APTT POC ABG pH 7.288 L POC ABG pCO2 28.5 L POC ABG pO2 66 L Sodium Potassium Chloride Carbon Dioxide BUN Creatinine Glucose POC Glucose 138 H 109 H Lactic Acid Calcium Magnesium Total Bilirubin Direct Bilirubin AST ALT Alkaline Phosphatase Ammonia Lactate Dehydrogenase Total Creatine Kinase Total Protein Albumin LDL Cholesterol Direct Vitamin B12 Urine WBC (Auto) Miscellaneous Test Crossmatch 08/23/16 08/23/16 08/23/16 18:02 20:05 20:23 WBC RBC Hgb Hct RDW Plt Count Lymph % (Auto) [place] # Seg Neutrophils % Seg Neuts % (Manual) Lymphocytes % (Manual) Nucleated RBC % Seg Neutrophils # Seg Neutrophils # Man Lymphocytes # (Manual) Monocytes # (Manual) Percent Retic Haptoglobin PT INR APTT POC ABG pH POC ABG pCO2 POC ABG pO2 Sodium Potassium Chloride Carbon Dioxide 15 L BUN 19 H Creatinine 2.9 H Glucose 117 H POC Glucose 123 H 129 H Lactic Acid Calcium 7.3 L Magnesium Total Bilirubin 4.9 H Direct Bilirubin AST 369 H ALT 258 H Alkaline Phosphatase 291 H Ammonia Lactate Dehydrogenase Total Creatine Kinase Total Protein 4.3 L Albumin 1.7 L LDL Cholesterol Direct Vitamin B12 Urine WBC (Auto) Miscellaneous Test Crossmatch 08/23/16 08/23/16 08/23/16 21:50 21:50 21:50 WBC RBC Hgb Hct RDW Plt Count Lymph % (Auto) [place] # Seg Neutrophils % Seg Neuts % (Manual) Lymphocytes % (Manual) Nucleated RBC % Seg Neutrophils # Seg Neutrophils # Man Lymphocytes # (Manual) Monocytes # (Manual) Percent Retic Haptoglobin PT 22.5 H INR 1.98 H APTT POC ABG pH POC ABG pCO2 POC ABG pO2 Sodium Potassium Chloride Carbon Dioxide BUN Creatinine Glucose POC Glucose Lactic Acid 4.6 H* Calcium Magnesium Total Bilirubin Direct Bilirubin AST ALT Alkaline Phosphatase Ammonia Lactate Dehydrogenase Total Creatine Kinase 1410 H Total Protein Albumin LDL Cholesterol Direct Vitamin B12 Urine WBC (Auto) Miscellaneous Test Crossmatch 08/23/16 08/24/16 08/24/16 22:16 00:13 01:47 WBC RBC Hgb Hct RDW Plt Count Lymph % (Auto) [place] # Seg Neutrophils % Seg Neuts % (Manual) Lymphocytes % (Manual) Nucleated RBC % Seg Neutrophils # Seg Neutrophils # Man Lymphocytes # (Manual) Monocytes # (Manual) Percent Retic Haptoglobin PT INR APTT POC ABG pH POC ABG pCO2 POC ABG pO2 Sodium Potassium Chloride Carbon Dioxide BUN Creatinine Glucose POC Glucose 134 H 120 H 116 H Lactic Acid Calcium Magnesium Total Bilirubin Direct Bilirubin AST ALT Alkaline Phosphatase Ammonia Lactate Dehydrogenase Total Creatine Kinase Total Protein Albumin LDL Cholesterol Direct Vitamin B12 Urine WBC (Auto) Miscellaneous Test Crossmatch 08/24/16 08/24/16 08/24/16 02:37 03:25 04:10 WBC RBC Hgb Hct RDW Plt Count Lymph % (Auto) [place] # Seg Neutrophils % Seg Neuts % (Manual) Lymphocytes % (Manual) Nucleated RBC % Seg Neutrophils # Seg Neutrophils # Man Lymphocytes # (Manual) Monocytes # (Manual) Percent Retic Haptoglobin PT INR APTT POC ABG pH POC ABG pCO2 POC ABG pO2 Sodium Potassium Chloride Carbon Dioxide BUN Creatinine Glucose POC Glucose 107 H 108 H 114 H Lactic Acid Calcium Magnesium Total Bilirubin Direct Bilirubin AST ALT Alkaline Phosphatase Ammonia Lactate Dehydrogenase Total Creatine Kinase Total Protein Albumin LDL Cholesterol Direct Vitamin B12 Urine WBC (Auto) Miscellaneous Test Crossmatch 08/24/16 08/24/16 08/24/16 05:00 05:00 05:00 WBC 12.7 H RBC 2.18 L Hgb 6.7 L D Hct 20.4 L D RDW Plt Count 102 L Lymph % (Auto) [place] # Seg Neutrophils % Seg Neuts % (Manual) Lymphocytes % (Manual) Nucleated RBC % Seg Neutrophils # Seg Neutrophils # Man Lymphocytes # (Manual) Monocytes # (Manual) Percent Retic Haptoglobin PT 22.1 H INR 1.93 H APTT POC ABG pH POC ABG pCO2 POC ABG pO2 Sodium Potassium Chloride 108.0 H Carbon Dioxide 19 L BUN 21 H Creatinine 2.7 H Glucose POC Glucose Lactic Acid Calcium 6.8 L Magnesium Total Bilirubin 4.6 H Direct Bilirubin AST 303 H ALT 204 H Alkaline Phosphatase 280 H Ammonia Lactate Dehydrogenase Total Creatine Kinase 1295 H Total Protein 4.1 L Albumin 1.6 L LDL Cholesterol Direct Vitamin B12 Urine WBC (Auto) Miscellaneous Test Crossmatch 08/24/16 08/24/16 08/24/16 05:00 14:12 14:30 WBC RBC Hgb Hct RDW Plt Count Lymph % (Auto) [place] # Seg Neutrophils % Seg Neuts % (Manual) Lymphocytes % (Manual) Nucleated RBC % Seg Neutrophils # Seg Neutrophils # Man Lymphocytes # (Manual) Monocytes # (Manual) Percent Retic Haptoglobin PT INR APTT POC ABG pH 7.479 H POC ABG pCO2 29.6 L POC ABG pO2 62 L Sodium Potassium Chloride Carbon Dioxide BUN Creatinine Glucose POC Glucose Lactic Acid 3.0 H* Calcium Magnesium Total Bilirubin Direct Bilirubin AST ALT Alkaline Phosphatase Ammonia 61.0 H Lactate Dehydrogenase Total Creatine Kinase Total Protein Albumin LDL Cholesterol Direct Vitamin B12 Urine WBC (Auto) Miscellaneous Test Crossmatch 08/24/16 08/24/16 08/25/16 17:45 23:30 00:55 WBC RBC Hgb Hct RDW Plt Count Lymph % (Auto) [place] # Seg Neutrophils % Seg Neuts % (Manual) Lymphocytes % (Manual) Nucleated RBC % Seg Neutrophils # Seg Neutrophils # Man Lymphocytes # (Manual) Monocytes # (Manual) Percent Retic Haptoglobin PT INR APTT POC ABG pH POC ABG pCO2 POC ABG pO2 Sodium Potassium Chloride Carbon Dioxide BUN Creatinine Glucose POC Glucose 108 H Lactic Acid Calcium Magnesium 4.7 H 6.7 H Total Bilirubin Direct Bilirubin AST ALT Alkaline Phosphatase Ammonia Lactate Dehydrogenase Total Creatine Kinase Total Protein Albumin LDL Cholesterol Direct Vitamin B12 Urine WBC (Auto) Miscellaneous Test Crossmatch 08/25/16 08/25/16 08/25/16 02:14 05:45 05:45 WBC 19.1 H RBC 3.24 L Hgb 9.7 L D Hct 29.1 L D RDW 16.1 H Plt Count 112 L Lymph % (Auto) [place] # Seg Neutrophils % Seg Neuts % (Manual) Lymphocytes % (Manual) Nucleated RBC % Seg Neutrophils # Seg Neutrophils # Man Lymphocytes # (Manual) Monocytes # (Manual) Percent Retic Haptoglobin PT INR APTT POC ABG pH POC ABG pCO2 POC ABG pO2 Sodium Potassium Chloride Carbon Dioxide BUN Creatinine Glucose POC Glucose 106 H Lactic Acid Calcium Magnesium 7.2 H Total Bilirubin Direct Bilirubin AST ALT Alkaline Phosphatase Ammonia Lactate Dehydrogenase Total Creatine Kinase Total Protein Albumin LDL Cholesterol Direct Vitamin B12 Urine WBC (Auto) Miscellaneous Test Crossmatch 08/25/16 08/25/16 08/25/16 05:45 05:45 12:24 WBC 19.4 H RBC 3.22 L Hgb 9.5 L Hct 28.6 L RDW 16.5 H Plt Count 106 L Lymph % (Auto) [place] # Seg Neutrophils % Seg Neuts % (Manual) 76.0 H Lymphocytes % (Manual) 8.0 L Nucleated RBC % 7.0 H Seg Neutrophils # Seg Neutrophils # Man 14.7 H Lymphocytes # (Manual) Monocytes # (Manual) Percent Retic Haptoglobin PT 20.0 H INR 1.70 H APTT 42.3 H POC ABG pH POC ABG pCO2 POC ABG pO2 Sodium 136 L Potassium Chloride Carbon Dioxide BUN 31 H Creatinine 2.9 H Glucose POC Glucose Lactic Acid Calcium 6.7 L Magnesium Total Bilirubin 5.7 H Direct Bilirubin AST 194 H ALT 119 H Alkaline Phosphatase 299 H Ammonia Lactate Dehydrogenase Total Creatine Kinase Total Protein 4.4 L Albumin 1.7 L LDL Cholesterol Direct Vitamin B12 Urine WBC (Auto) Miscellaneous Test Crossmatch 08/25/16 08/25/16 08/25/16 12:40 17:53 19:56 WBC RBC Hgb Hct RDW Plt Count Lymph % (Auto) [place] # Seg Neutrophils % Seg Neuts % (Manual) Lymphocytes % (Manual) Nucleated RBC % Seg Neutrophils # Seg Neutrophils # Man Lymphocytes # (Manual) Monocytes # (Manual) Percent Retic Haptoglobin PT INR APTT POC ABG pH POC ABG pCO2 POC ABG pO2 Sodium Potassium Chloride Carbon Dioxide BUN Creatinine Glucose POC Glucose 107 H Lactic Acid Calcium Magnesium 6.5 H 5.9 H Total Bilirubin Direct Bilirubin AST ALT Alkaline Phosphatase Ammonia Lactate Dehydrogenase Total Creatine Kinase Total Protein Albumin LDL Cholesterol Direct Vitamin B12 Urine WBC (Auto) Miscellaneous Test Crossmatch 08/25/16 08/26/16 08/26/16 23:18 04:50 04:50 WBC 19.1 H RBC 2.73 L Hgb 8.2 L Hct 24.4 L RDW 16.1 H Plt Count 95 L Lymph % (Auto) [place] # Seg Neutrophils % Seg Neuts % (Manual) 86.0 H Lymphocytes % (Manual) 9.0 L Nucleated RBC % 10.0 H Seg Neutrophils # Seg Neutrophils # Man 16.4 H Lymphocytes # (Manual) Monocytes # (Manual) Percent Retic Haptoglobin PT INR APTT POC ABG pH POC ABG pCO2 POC ABG pO2 Sodium 136 L Potassium Chloride Carbon Dioxide BUN 33 H Creatinine 2.0 H Glucose POC Glucose Lactic Acid Calcium 6.3 L Magnesium 5.2 H 4.5 H Total Bilirubin Direct Bilirubin AST ALT Alkaline Phosphatase Ammonia Lactate Dehydrogenase Total Creatine Kinase Total Protein Albumin LDL Cholesterol Direct Vitamin B12 Urine WBC (Auto) Miscellaneous Test Crossmatch 01/08/26/16 08/26/16 08:26 10:07 14:54 WBC RBC Hgb Hct RDW Plt Count Lymph % (Auto) [place] # Seg Neutrophils % Seg Neuts % (Manual) Lymphocytes % (Manual) Nucleated RBC % Seg Neutrophils # Seg Neutrophils # Man Lymphocytes # (Manual) Monocytes # (Manual) Percent Retic Haptoglobin PT INR APTT POC ABG pH POC ABG pCO2 POC ABG pO2 Sodium Potassium Chloride Carbon Dioxide BUN Creatinine Glucose POC Glucose 115 H 109 H Lactic Acid Calcium Magnesium Total Bilirubin 7.6 H Direct Bilirubin 6.6 H AST 112 H ALT 63 H Alkaline Phosphatase 253 H Ammonia Lactate Dehydrogenase Total Creatine Kinase Total Protein 4.1 L Albumin 1.6 L LDL Cholesterol Direct Vitamin B12 Urine WBC (Auto) Miscellaneous Test Crossmatch 08/26/16 08/26/16 08/26/16 17:47 20:02 21:42 WBC RBC Hgb Hct RDW Plt Count Lymph % (Auto) [place] # Seg Neutrophils % Seg Neuts % (Manual) Lymphocytes % (Manual) Nucleated RBC % Seg Neutrophils # Seg Neutrophils # Man Lymphocytes # (Manual) Monocytes # (Manual) Percent Retic Haptoglobin PT INR APTT POC ABG pH POC ABG pCO2 POC ABG pO2 Sodium Potassium Chloride Carbon Dioxide BUN Creatinine Glucose POC Glucose 120 H 123 H 125 H Lactic Acid Calcium Magnesium Total Bilirubin Direct Bilirubin AST ALT Alkaline Phosphatase Ammonia Lactate Dehydrogenase Total Creatine Kinase Total Protein Albumin LDL Cholesterol Direct Vitamin B12 Urine WBC (Auto) Miscellaneous Test Crossmatch 08/26/16 08/27/16 08/27/16 23:41 01:59 04:01 WBC RBC Hgb Hct RDW Plt Count Lymph % (Auto) [place] # Seg Neutrophils % Seg Neuts % (Manual) Lymphocytes % (Manual) Nucleated RBC % Seg Neutrophils # Seg Neutrophils # Man Lymphocytes # (Manual) Monocytes # (Manual) Percent Retic Haptoglobin PT INR APTT POC ABG pH POC ABG pCO2 POC ABG pO2 Sodium Potassium Chloride Carbon Dioxide BUN Creatinine Glucose POC Glucose 114 H 127 H 144 H Lactic Acid Calcium Magnesium Total Bilirubin Direct Bilirubin AST ALT Alkaline Phosphatase Ammonia Lactate Dehydrogenase Total Creatine Kinase Total Protein Albumin LDL Cholesterol Direct Vitamin B12 Urine WBC (Auto) Miscellaneous Test Crossmatch 08/27/16 08/27/16 08/27/16 05:46 06:37 06:37 WBC 16.1 H RBC 2.19 L Hgb 6.3 L Hct 19.9 L* RDW 16.2 H Plt Count 103 L Lymph % (Auto) [place] # Seg Neutrophils % Seg Neuts % (Manual) 83.0 H Lymphocytes % (Manual) 10.0 L Nucleated RBC % 9.0 H Seg Neutrophils # Seg Neutrophils # Man 13.4 H Lymphocytes # (Manual) Monocytes # (Manual) Percent Retic Haptoglobin PT INR APTT POC ABG pH POC ABG pCO2 POC ABG pO2 Sodium 133 L Potassium Chloride Carbon Dioxide 20 L BUN 31 H Creatinine Glucose 118 H POC Glucose 121 H Lactic Acid Calcium 6.4 L Magnesium Total Bilirubin 9.7 H Direct Bilirubin AST 73 H ALT Alkaline Phosphatase 215 H Ammonia Lactate Dehydrogenase Total Creatine Kinase Total Protein 3.8 L Albumin 1.5 L LDL Cholesterol Direct Vitamin B12 Urine WBC (Auto) Miscellaneous Test Crossmatch 08/27/16 08/27/16 08/27/16 07:50 08:20 08:40 WBC RBC Hgb 6.1 L Hct 18.4 L* RDW Plt Count Lymph % (Auto) [place] # Seg Neutrophils % Seg Neuts % (Manual) Lymphocytes % (Manual) Nucleated RBC % Seg Neutrophils # Seg Neutrophils # Man Lymphocytes # (Manual) Monocytes # (Manual) Percent Retic Haptoglobin PT INR APTT POC ABG pH POC ABG pCO2 POC ABG pO2 Sodium Potassium Chloride Carbon Dioxide BUN Creatinine Glucose POC Glucose 141 H Lactic Acid Calcium Magnesium Total Bilirubin Direct Bilirubin AST ALT Alkaline Phosphatase Ammonia Lactate Dehydrogenase Total Creatine Kinase Total Protein Albumin LDL Cholesterol Direct Vitamin B12 Urine WBC (Auto) Miscellaneous Test Crossmatch See Detail 08/27/16 08/27/16 08/27/16 08:40 09:55 11:15 WBC RBC Hgb Hct RDW Plt Count Lymph % (Auto) [place] # Seg Neutrophils % Seg Neuts % (Manual) Lymphocytes % (Manual) Nucleated RBC % Seg Neutrophils # Seg Neutrophils # Man Lymphocytes # (Manual) Monocytes # (Manual) Percent Retic Haptoglobin PT 17.2 H INR 1.41 H APTT POC ABG pH POC ABG pCO2 POC ABG pO2 Sodium Potassium Chloride Carbon Dioxide BUN Creatinine Glucose POC Glucose 133 H Lactic Acid Calcium Magnesium Total Bilirubin Direct Bilirubin AST ALT Alkaline Phosphatase Ammonia Lactate Dehydrogenase 844 H Total Creatine Kinase Total Protein Albumin LDL Cholesterol Direct Vitamin B12 Urine WBC (Auto) Miscellaneous Test Crossmatch 08/27/16 08/27/16 08/27/16 11:15 11:15 11:15 WBC RBC Hgb Hct RDW Plt Count Lymph % (Auto) [place] # Seg Neutrophils % Seg Neuts % (Manual) Lymphocytes % (Manual) Nucleated RBC % Seg Neutrophils # Seg Neutrophils # Man Lymphocytes # (Manual) Monocytes # (Manual) Percent Retic 6.59 H Haptoglobin <15 L PT INR APTT POC ABG pH POC ABG pCO2 POC ABG pO2 Sodium Potassium Chloride Carbon Dioxide BUN Creatinine Glucose POC Glucose Lactic Acid Calcium Magnesium Total Bilirubin Direct Bilirubin AST ALT Alkaline Phosphatase Ammonia Lactate Dehydrogenase Total Creatine Kinase Total Protein Albumin LDL Cholesterol Direct Vitamin B12 > 2000 H Urine WBC (Auto) Miscellaneous Test Crossmatch 08/27/16 08/27/16 08/27/16 11:59 14:06 15:20 WBC RBC Hgb Hct RDW Plt Count Lymph % (Auto) [place] # Seg Neutrophils % Seg Neuts % (Manual) Lymphocytes % (Manual) Nucleated RBC % Seg Neutrophils # Seg Neutrophils # Man Lymphocytes # (Manual) Monocytes # (Manual) Percent Retic Haptoglobin PT INR APTT POC ABG pH POC ABG pCO2 POC ABG pO2 Sodium Potassium Chloride Carbon Dioxide BUN Creatinine Glucose POC Glucose 129 H 148 H Lactic Acid Calcium Magnesium Total Bilirubin Direct Bilirubin AST ALT Alkaline Phosphatase Ammonia Lactate Dehydrogenase Total Creatine Kinase Total Protein Albumin LDL Cholesterol Direct Vitamin B12 Urine WBC (Auto) 10.0 H Miscellaneous Test Crossmatch 08/27/16 08/27/16 08/27/16 16:23 19:35 19:46 WBC 26.5 H RBC 2.19 L Hgb 6.6 L Hct 20.1 L RDW 15.9 H Plt Count 78 L Lymph % (Auto) [place] # Seg Neutrophils % Seg Neuts % (Manual) Lymphocytes % (Manual) Nucleated RBC % Seg Neutrophils # Seg Neutrophils # Man Lymphocytes # (Manual) Monocytes # (Manual) Percent Retic Haptoglobin PT INR APTT POC ABG pH POC ABG pCO2 POC ABG pO2 Sodium Potassium Chloride Carbon Dioxide BUN Creatinine Glucose POC Glucose 111 H 108 H Lactic Acid Calcium Magnesium Total Bilirubin Direct Bilirubin AST ALT Alkaline Phosphatase Ammonia Lactate Dehydrogenase Total Creatine Kinase Total Protein Albumin LDL Cholesterol Direct Vitamin B12 Urine WBC (Auto) Miscellaneous Test Crossmatch 08/27/16 08/28/16 08/28/16 21:36 00:18 02:22 WBC RBC Hgb Hct RDW Plt Count Lymph % (Auto) [place] # Seg Neutrophils % Seg Neuts % (Manual) Lymphocytes % (Manual) Nucleated RBC % Seg Neutrophils # Seg Neutrophils # Man Lymphocytes # (Manual) Monocytes # (Manual) Percent Retic Haptoglobin PT INR APTT POC ABG pH POC ABG pCO2 POC ABG pO2 Sodium Potassium Chloride Carbon Dioxide BUN Creatinine Glucose POC Glucose 129 H 114 H 121 H Lactic Acid Calcium Magnesium Total Bilirubin Direct Bilirubin AST ALT Alkaline Phosphatase Ammonia Lactate Dehydrogenase Total Creatine Kinase Total Protein Albumin LDL Cholesterol Direct Vitamin B12 Urine WBC (Auto) Miscellaneous Test Crossmatch 08/28/16 08/28/16 08/28/16 03:19 05:30 05:30 WBC 29.9 H RBC 2.54 L Hgb 8.0 L Hct 23.5 L RDW 15.4 H Plt Count 49 L Lymph % (Auto) [place] # Seg Neutrophils % Seg Neuts % (Manual) 91.5 H Lymphocytes % (Manual) 2.0 L Nucleated RBC % 12.0 H Seg Neutrophils # Seg Neutrophils # Man 27.4 H Lymphocytes # (Manual) 0.6 L Monocytes # (Manual) 0.9 H Percent Retic Haptoglobin PT 19.0 H INR 1.60 H APTT POC ABG pH POC ABG pCO2 POC ABG pO2 Sodium Potassium Chloride Carbon Dioxide BUN Creatinine Glucose POC Glucose 120 H Lactic Acid Calcium Magnesium Total Bilirubin Direct Bilirubin AST ALT Alkaline Phosphatase Ammonia Lactate Dehydrogenase Total Creatine Kinase Total Protein Albumin LDL Cholesterol Direct Vitamin B12 Urine WBC (Auto) Miscellaneous Test Crossmatch 08/28/16 08/28/16 08/28/16 05:30 06:03 07:55 WBC RBC Hgb Hct RDW Plt Count Lymph % (Auto) [place] # Seg Neutrophils % Seg Neuts % (Manual) Lymphocytes % (Manual) Nucleated RBC % Seg Neutrophils # Seg Neutrophils # Man Lymphocytes # (Manual) Monocytes # (Manual) Percent Retic Haptoglobin PT INR APTT POC ABG pH POC ABG pCO2 POC ABG pO2 Sodium 133 L Potassium Chloride Carbon Dioxide 19 L BUN 47 H Creatinine Glucose 130 H POC Glucose 142 H 141 H Lactic Acid Calcium 6.7 L Magnesium Total Bilirubin 25.3 H Direct Bilirubin AST 170 H ALT Alkaline Phosphatase 252 H Ammonia Lactate Dehydrogenase Total Creatine Kinase Total Protein 4.2 L Albumin 1.5 L LDL Cholesterol Direct Vitamin B12 Urine WBC (Auto) Miscellaneous Test Crossmatch 08/28/16 08/28/16 08/28/16 11:11 12:03 14:03 WBC RBC Hgb Hct RDW Plt Count Lymph % (Auto) [place] # Seg Neutrophils % Seg Neuts % (Manual) Lymphocytes % (Manual) Nucleated RBC % Seg Neutrophils # Seg Neutrophils # Man Lymphocytes # (Manual) Monocytes # (Manual) Percent Retic Haptoglobin PT INR APTT POC ABG pH POC ABG pCO2 POC ABG pO2 Sodium Potassium Chloride Carbon Dioxide BUN Creatinine Glucose POC Glucose 153 H 174 H 129 H Lactic Acid Calcium Magnesium Total Bilirubin Direct Bilirubin AST ALT Alkaline Phosphatase Ammonia Lactate Dehydrogenase Total Creatine Kinase Total Protein Albumin LDL Cholesterol Direct Vitamin B12 Urine WBC (Auto) Miscellaneous Test Crossmatch 08/28/16 08/28/16 08/28/16 16:45 16:45 16:45 WBC 23.1 H RBC 2.33 L Hgb 7.2 L Hct 21.6 L RDW 15.6 H Plt Count 53 L Lymph % (Auto) [place] # Seg Neutrophils % Seg Neuts % (Manual) Lymphocytes % (Manual) Nucleated RBC % Seg Neutrophils # Seg Neutrophils # Man Lymphocytes # (Manual) Monocytes # (Manual) Percent Retic Haptoglobin PT 16.6 H INR 1.35 H APTT POC ABG pH POC ABG pCO2 POC ABG pO2 Sodium 134 L Potassium Chloride Carbon Dioxide 19 L BUN 54 H Creatinine Glucose 134 H POC Glucose Lactic Acid Calcium 6.7 L Magnesium Total Bilirubin 23.5 H Direct Bilirubin AST 129 H ALT Alkaline Phosphatase 217 H Ammonia Lactate Dehydrogenase Total Creatine Kinase Total Protein 4.1 L Albumin 1.7 L LDL Cholesterol Direct Vitamin B12 Urine WBC (Auto) Miscellaneous Test Crossmatch 08/28/16 16:49 WBC RBC Hgb Hct RDW Plt Count Lymph % (Auto) [place] # Seg Neutrophils % Seg Neuts % (Manual) Lymphocytes % (Manual) Nucleated RBC % Seg Neutrophils # Seg Neutrophils # Man Lymphocytes # (Manual) Monocytes # (Manual) Percent Retic Haptoglobin PT INR APTT POC ABG pH POC ABG pCO2 POC ABG pO2 Sodium Potassium Chloride Carbon Dioxide BUN Creatinine Glucose POC Glucose 142 H Lactic Acid Calcium Magnesium Total Bilirubin Direct Bilirubin AST ALT Alkaline Phosphatase Ammonia Lactate Dehydrogenase Total Creatine Kinase Total Protein Albumin LDL Cholesterol Direct Vitamin B12 Urine WBC (Auto) Miscellaneous Test Crossmatch
[2016-08-28] MEDS: MORPHINE IV PRN (21:56)
[2016-08-29] MEDS: NORMODYNE PO SCH ×3 (00:55→21:55)
[2016-08-29] MEDS: VANCOMYCIN VIAL 1,250 MG in NACL 0.9% 250ML 250 ML IV SCH ×4 (04:21→21:55)
[2016-08-29 04:50] LABS: Hematocrit 20.6 % (30.3-42.9); Hemoglobin 6.9 gm/dl (10.1-14.3); Mean Corpuscular HGB Conc 33 % (30-34); Mean Corpuscular Hemoglobin 31 pg (28-32); Mean Corpuscular Volume 92 fl (79-97); Red Blood Count 2.24 M/mm3 (3.65-5.03); Red Cell Distribution Width 16.1 % (13.2-15.2); White Blood Count 19.4 K/mm3 (4.5-11.0)
[2016-08-29 04:56] LABS: Platelet Count 51 K/mm3 (140-440)
[2016-08-29 05:13] LABS: Alanine Aminotransferase 44 units/L (7-56); Albumin 1.7 g/dL (3.9-5); Albumin/Globulin Ratio 0.7 %; Alkaline Phosphatase 208 units/L (35-129); BUN/Creatinine Ratio 58.88; Blood Urea Nitrogen 53 mg/dL (7-17); Calcium 6.7 mg/dL (8.4-10.2); Carbon Dioxide 19 mmol/L (22-30); Glucose 160 mg/dL (65-100); Total Protein 4.1 g/dL (6.3-8.2)
[2016-08-29 05:14] LABS: Chloride 100.8 mmol/L (98-107); Potassium 4.1 mmol/L (3.6-5.0); Sodium 132 mmol/L (137-145)
[2016-08-29 05:17] LABS: Anion Gap 16 mmol/L; Bilirubin,Total 23.2 mg/dL (0.1-1.2)
[2016-08-29 05:18] LABS: Bilirubin,Total 23.2 mg/dL (0.1-1.2)
[2016-08-29] MEDS: D5W 1,000 ML IV SCH (05:22)
[2016-08-29 05:40] LABS: Bilirubin,Direct 18.9 mg/dL (0-0.2); Bilirubin,Indirect 4.3 mg/dL
[2016-08-29 05:55] LABS: Blastocytes % (Manual) 0 %
[2016-08-29 05:56] LABS: Anisocytosis 1+; Basophils % (Manual) 0 % (0.0-1.8); Diff Status Complete; Eosinophils % (Manual) 0 % (0.0-4.3); Hypochromasia 1+; Platelet Estimate Consistent w Auto; Polychromasia 1+
[2016-08-29 05:57] LABS: Schistocytes Few
[2016-08-29] MEDS ORDERED: NACL 0.9% 500 ML 500 ML ONE (08:01)
[2016-08-29] MEDS ORDERED: NACL 0.9% 250ML 250 ML ONE (08:03)
--- NOTE | 2016-08-29 08:35 | Progress Note ---
Assessment and Plan Assessment and plan: Patient is 41 yo woman who was in her 3rd trimester of presented due to decrease movement, was done. Hospitalist was called for viral illness, which was diagnosis prior to hospitalization. After patient was evaluated by Hospitalist, Dr. Brown, for the viral illness in recovery room after the ; she developed hypotension and jaundice. She was transferred to the ICU under the [facility] service. Operative note as follows, "Date of operation 08/22/16, Diagnosis #1 Intrauterine gestation at 31+ weeks, # 2 NRFHT, #3 viral infection, #4 BPP 09/11, #5 meconium, Postop diagnosis #1-6 same as above, #7 delivery of viable fetus male operation performed primary low segment transverse , #9 PP hemorrhage, #10 uterine atony, Surgeon :Dr. Melton Anesthesia: General Anesthesiologist: Dr. Mendoza Estimated blood loss 1200 mL, Lindsey catheter to bladder 400 mL clear yellow urine * HELLP syndrome suspected, baby delivered,, LFTs appears to be stabilizing. Platelets mildly improved, will continue close monitoring . GI consult to assess ultrasound showing pericholecystic fluid and wall thickening * Hypotension: Resolved. Continue gentle IV fluids. TORCH and Parvovirus titers pending. * Hypoglycemia:improved * Leukocytosis with sepsis syndrome rule out aspiration-Mild improvement today. No fever. 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 Resolved * Acute blood loss anemia- hemoglobin 6.9 today. We'll monitor closely. Transfuse as needed up to 7. Likely secondary to hemolysis initial effect of TRALI appears to have resolved. * Thrombocytopenia -hepatology input appreciated * Metabolic encephalopathy -resolved likely was secondary to HEL LP * Hemolytic Anemia with Jaundice as part of the HELLP syndrome hematology oncology following * DVT/GI prophy * Discussed in detail with family at bedside The high probability of a clinically significant, sudden or life threatening deterioration of the [hematologic, hepatology, neurology] system(s) required my full and direct attention, intervention and personal management. The aggregate critical care time was [40] minutes. This time is in addition to time spent performing reported procedures but includes the following: [x] Data Review and interpretation [x] Patient assessment and monitoring of vital signs [x] Documentation [x] Medication orders and management History Interval history: Patient seen and examined. Follow up HELLP Syndrome. Patient remains in the ICU, she is more awake this morning much more verbal than yesterday. Strength appears to be coming back. She is no longer requiring pressors. Urine output continues to be strong. Family visits and then at bedside. No cp, n/v. Imaging, old records, testing, labs, nursing notes reviewed. Hospitalist Physical - Physical exam Narrative exam: VITAL SIGNS: Reviewed. GENERAL: The patient appeared well nourished and normally developed. Vital signs as documented. HEAD: No signs of head trauma. EYES: Pupils are equal. icteric pupils EARS: Hearing grossly intact. MOUTH: Oropharynx is normal. NECK: No adenopathy, no JVD. CHEST: Chest with clear breath sounds bilaterally. No wheezes, rales, or rhonchi. CARDIAC: Regular rate and rhythm. S1 and S2, without murmurs, gallops, or rubs. VASCULAR: Peripheral pulses normal and equal in all extremities. ABDOMEN: Soft, tender in the lower quadrant status post surgical incision pressure dressing in place no other drainage noted. No sign of distention. No rebound or guarding, and no masses palpated. Bowel Sounds normal. MUSCULOSKELETAL: Good range of motion of all major joints. Extremities without clubbing, cyanosis. NEUROLOGIC EXAM: Awake, lethargic and oriented to person, time and place. No focal sensory or strength deficits. Follows simple commands. PSYCHIATRIC: Mood normal. SKIN: Jaundiced. Surgical incision noted no overt drainage. Generalized anasarca. - Constitutional Vitals: Temp Pulse Resp BP Pulse Ox 97.6 F 83 20 123/61 96 08/29/16 08:00 08/29/16 05:00 08/29/16 05:00 08/29/16 05:00 08/29/16 05:26 General appearance: Present: no acute distress, other (lethargic) Results - Labs CBC & Chem 7: 08/29/16 04:30 08/29/16 04:30 Labs: Laboratory Last Values WBC 19.4 K/mm3 (4.5-11.0) H 08/29/16 04:30 RBC 2.24 M/mm3 (3.65-5.03) L 08/29/16 04:30 Hgb 6.9 gm/dl (10.1-14.3) L 08/29/16 04:30 Hct 20.6 % (30.3-42.9) L 08/29/16 04:30 MCV 92 fl (79-97) 08/29/16 04:30 MCH 31 pg (28-32) 08/29/16 04:30 MCHC 33 % (30-34) 08/29/16 04:30 RDW 16.1 % (13.2-15.2) H 08/29/16 04:30 Plt Count 51 K/mm3 (140-440) L 08/29/16 04:30 Lymph % (Auto) 14.6 % (13.4-35.0) 08/23/16 05:19 [place] % (Auto) 6.6 % (0.0-7.3) 08/23/16 05:19 Eos % (Auto) 1.2 % (0.0-4.3) 08/23/16 05:19 Baso % (Auto) 0.4 % (0.0-1.8) 08/23/16 05:19 Lymph # [employer] Grade Teacher 08/26/16 04:50 [facility] # 1.1 K/mm3 (0.0-0.8) H 08/23/16 05:19 Eos # 0.2 K/mm3 (0.0-0.4) 08/23/16 05:19 Baso # 0.1 K/mm3 (0.0-0.1) 08/23/16 05:19 Add Manual Diff Complete 08/29/16 04:30 Total Counted 100 08/29/16 04:30 Seg Neutrophils % 4[employer] Grade Teacher 08/28/16 05:30 Seg Neuts % (Manual) 68.0 % (40.0-70.0) 08/29/16 04:30 Band Neutrophils % 11.0 % 08/29/16 04:30 Lymphocytes % (Manual) 7.0 % (13.4-35.0) L 08/29/16 04:30 Reactive Lymphs % (Man) 0 % 08/29/16 04:30 Monocytes % (Manual) 6.0 % (0.0-7.3) 08/29/16 04:30 Eosinophils % (Manual) 0 % (0.0-4.3) 08/29/16 04:30 Basophils % (Manual) 0 % (0.0-1.8) 08/29/16 04:30 Metamyelocytes % 8.0 % 08/29/16 04:30 Myelocytes % 0 % 08/29/16 04:30 Promyelocytes % 0 % 08/29/16 04:30 Blast Cells % 0 % 08/29/16 04:30 Nucleated RBC % 7.0 % (0.0-0.9) H 08/29/16 04:30 Seg Neutrophils # 13.1 K/mm3 (1.8-7.7) H 08/23/16 05:19 Seg Neutrophils # Man 13.2 K/mm3 (1.8-7.7) H 08/29/16 04:30 Band Neutrophils # 2.1 K/mm3 08/29/16 04:30 Lymphocytes # (Manual) 1.4 K/mm3 (1.2-5.4) 08/29/16 04:30 Abs React Lymphs (Man) 0.0 K/mm3 08/29/16 04:30 Monocytes # (Manual) 1.2 K/mm3 (0.0-0.8) H 08/29/16 04:30 Eosinophils # (Manual) 0.0 K/mm3 (0.0-0.4) 08/29/16 04:30 Basophils # (Manual) 0.0 K/mm3 (0.0-0.1) 08/29/16 04:30 Metamyelocytes # 1.6 K/mm3 08/29/16 04:30 Myelocytes # 0.0 K/mm3 08/29/16 04:30 Promyelocytes # 0.0 K/mm3 08/29/16 04:30 Blast Cells # 0.0 K/mm3 08/29/16 04:30 WBC Morphology Not Reportable 08/29/16 04:30 Hypersegmented Neuts Not Reportable 08/29/16 04:30 Hyposegmented Neuts Not Reportable 08/29/16 04:30 Hypogranular Neuts Not Reportable 08/29/16 04:30 Smudge Cells Not Reportable 08/29/16 04:30 Toxic Granulation Not Reportable 08/29/16 04:30 Toxic Vacuolation Not Reportable 08/29/16 04:30 Dohle Bodies Not Reportable 08/29/16 04:30 Pelger-Huet Anomaly Not Reportable 08/29/16 04:30 Alaina Rods Not Reportable 08/29/16 04:30 Platelet Estimate Consistent w auto 08/29/16 04:30 Clumped Platelets Not Reportable 08/29/16 04:30 Plt Clumps, EDTA Not Reportable 08/29/16 04:30 Large Platelets Not Reportable 08/29/16 04:30 Giant Platelets Not Reportable 08/29/16 04:30 Platelet Satelliting Not Reportable 08/29/16 04:30 Plt Morphology Comment Not Reportable 08/29/16 04:30 RBC Morphology Not Reportable 08/29/16 04:30 Dimorphic RBCs Not Reportable 08/29/16 04:30 Polychromasia 1+ 08/29/16 04:30 Hypochromasia 1+ 08/29/16 04:30 Poikilocytosis Not Reportable 08/29/16 04:30 Anisocytosis 1+ 08/29/16 04:30 Microcytosis Not Reportable 08/29/16 04:30 Macrocytosis Not Reportable 08/29/16 04:30 Spherocytes Not Reportable 08/29/16 04:30 Pappenheimer Bodies Not Reportable 08/29/16 04:30 Sickle Cells Not Reportable 08/29/16 04:30 Target Cells Not Reportable 08/29/16 04:30 Tear Drop Cells Not Reportable 08/29/16 04:30 Ovalocytes Not Reportable 08/29/16 04:30 Helmet Cells Not Reportable 08/29/16 04:30 Whittaker-Wynona Bodies Not Reportable 08/29/16 04:30 [place] Rings Not Reportable 08/29/16 04:30 Soumya Cells Not Reportable 08/29/16 04:30 Bite Cells Not Reportable 08/29/16 04:30 Crenated Cell Not Reportable 08/29/16 04:30 Elliptocytes Not Reportable 08/29/16 04:30 Acanthocytes (Spur) Not Reportable 08/29/16 04:30 Rouleaux Not Reportable 08/29/16 04:30 Hemoglobin C Crystals Not Reportable 08/29/16 04:30 Schistocytes Few 08/29/16 04:30 Malaria parasites Not Reportable 08/29/16 04:30 Percent Retic 6.59 % (0.78-2.58) H 08/27/16 11:15 Sickle Cell Screen Negative (Negative) 08/22/16 18:48 Daljit Bodies Not Reportable 08/29/16 04:30 Haptoglobin <15 mg/dL (43-212) L 08/27/16 11:15 Hem Pathologist Commnt No 08/29/16 04:30 PT 16.6 Sec. (12.2-14.9) H 08/28/16 16:45 INR 1.35 (0.87-1.13) H 08/28/16 16:45 APTT 42.3 Sec. (24.2-36.6) H 08/25/16 05:45 POC ABG pH 7.479 (7.35-7.45) H 08/24/16 14:12 POC ABG pCO2 29.6 (35-45) L 08/24/16 14:12 POC ABG pO2 62 (80-105) L 08/24/16 14:12 POC ABG HCO3 21.9 08/24/16 14:12 POC ABG Total CO2 23 08/24/16 14:12 POC ABG O2 Sat 93 08/24/16 14:12 POC ABG Base Excess -2 08/24/16 14:12 FiO2 3 % 08/24/16 14:12 Sodium 132 mmol/L (137-145) L 08/29/16 04:30 Potassium 4.1 mmol/L (3.6-5.0) 08/29/16 04:30 Chloride 100.8 mmol/L (98-107) 08/29/16 04:30 Carbon Dioxide 19 mmol/L (22-30) L 08/29/16 04:30 Anion Gap 16 mmol/L 08/29/16 04:30 BUN 53 mg/dL (7-17) H 08/29/16 04:30 Creatinine 0.9 mg/dL (0.7-1.2) 08/29/16 04:30 Estimated GFR > 60 ml/min 08/29/16 04:30 BUN/Creatinine Ratio 58.88 % 08/29/16 04:30 Glucose 160 mg/dL (65-100) H 08/29/16 04:30 POC Glucose 144 (70-105) H 08/29/16 07:56 Lactic Acid 2.0 mmol/L (0.7-2.0) 08/29/16 04:30 Calcium 6.7 mg/dL (8.4-10.2) L 08/29/16 04:30 Magnesium 4.5 mg/dL (1.7-2.3) H 08/26/16 04:50 Total Bilirubin 23.2 mg/dL (0.1-1.2) H 08/29/16 04:30 Direct Bilirubin 18.9 mg/dL (0-0.2) H 08/29/16 04:30 Indirect Bilirubin 4.3 mg/dL 08/29/16 04:30 AST 89 units/L (5-40) H 08/29/16 04:30 ALT 44 units/L (7-56) 08/29/16 04:30 Alkaline Phosphatase 208 units/L (35-129) H 08/29/16 04:30 Ammonia 53.0 umol/L (25-60) 08/27/16 11:15 Lactate Dehydrogenase 844 units/L (91-180) H 08/27/16 08:40 Total Creatine Kinase 1295 units/L (30-135) H 08/24/16 05:00 NT-Pro-B Natriuret Pep 241.0 pg/mL (0-450) 08/27/16 16:30 Total Protein 4.1 g/dL (6.3-8.2) L 08/29/16 04:30 Albumin 1.7 g/dL (3.9-5) L 08/29/16 04:30 Albumin/Globulin Ratio 0.7 % 08/29/16 04:30 LDL Cholesterol Direct 38 mg/dL (50-130) L 08/23/16 07:50 Vitamin B12 > 2000 pg/mL (211-911) H 08/27/16 11:15 Folate 10.54 ng/mL (7.3-26.0) 08/27/16 11:15 Urine Color [place] (Yellow) 08/27/16 15:20 Urine Turbidity Clear (Clear) 08/27/16 15:20 Urine pH 6.0 (5.0-7.0) 08/27/16 15:20 Ur Specific [place] 1.018 (1.003-1.030) 08/27/16 15:20 Urine Protein 30 mg/dl mg/dL (Negative) 08/27/16 15:20 Urine Glucose (UA) Neg mg/dL (Negative) 08/27/16 15:20 Urine Ketones Neg mg/dL (Negative) 08/27/16 15:20 Urine Blood Mod (Negative) 08/27/16 15:20 Urine Nitrite Neg (Negative) 08/27/16 15:20 Urine Bilirubin Mod (Negative) 08/27/16 15:20 Urine Ictotest Positive (Negative) 08/27/16 15:20 Urine Urobilinogen 4.0 mg/dL (<2.0) 08/27/16 15:20 Ur Leukocyte Esterase Neg (Negative) 08/27/16 15:20 Urine WBC (Auto) 10.0 /HPF (0.0-6.0) H 08/27/16 15:20 Urine RBC (Auto) 7.0 /HPF (0.0-6.0) 08/27/16 15:20 U Epithel Cells (Auto) < 1.0 /HPF (0-13.0) 08/27/16 15:20 Granular Casts 4 /LPF 08/27/16 15:20 Urine Mucus Few /HPF 08/27/16 15:20 Urine Opiates Screen Presumptive negative 08/22/16 18:30 Urine Methadone Screen Presumptive negative 08/22/16 18:30 Ur Barbiturates Screen Presumptive negative 08/22/16 18:30 Ur Phencyclidine Scrn Presumptive negative 08/22/16 18:30 Ur Amphetamines Screen Presumptive negative 08/22/16 18:30 U Benzodiazepines Scrn Presumptive negative 08/22/16 18:30 Urine Cocaine Screen Presumptive negative 08/22/16 18:30 U Marijuana (THC) Screen Presumptive negative 08/22/16 18:30 Drugs of Abuse Note Disclamer 08/22/16 18:30 RPR Nonreactive (Nonreactive) 08/22/16 18:34 CMV DNA PCR log senior copywriter/mL See scanned report 08/23/16 13:03 Hepatitis A IgM Ab -1 (NonReactive) 08/27/16 11:15 Hep Bs Antigen Non-reactive (Negative) 08/22/16 18:34 Hepatitis C Antibody Non-reactive (NonReactive) 08/22/16 18:34 Herpes Simplex Source Swab (()) 08/25/16 11:45 HSV I DNA PCR Not detected (Not Detected) 08/25/16 11:45 HSV II DNA PCR Not detected (Not Detected) 08/25/16 11:45 HIV 1&2 Antibody Rapid Non react (Non React) 08/23/16 09:25 HIV P24 Antigen Non react (Non React) 08/23/16 09:25 Rubella IgG Antibody Immune (Immune) 08/22/16 18:34 Rubella IgM Antibody <0.90 (<0.90) 08/22/16 18:34 Schistocytes Smear Rare 08/26/16 04:50 Toxoplasma IgG Ab <=0.90 (<=0.90) 08/22/16 18:34 Toxoplasma IgM Ab Negative (Negative) 08/22/16 18:34 Miscellaneous Test Flexitest 1 (()) H 08/22/16 18:54 Blood Type O NEGATIVE 08/27/16 08:20 Antibody Screen Positive 08/27/16 08:20 Antibody Identification Anti-D (Passively Aquired) 08/27/16 08:20 Direct Antiglob Test Negative 08/27/16 08:20 JYOTI, Poly Interpret Negative 08/27/16 08:20 KB % Cells Negative 08/22/16 Unknown Crossmatch See Detail 08/27/16 08:20 Pre-Trans JYOTI Negative 08/27/16 15:20 Pre-Trans JYOTI Poly Negative 08/27/16 15:20 Post-Trans Blood Type O negative 08/27/16 15:20 Post-Trans JYOTI Negative 08/27/16 15:20 Post-Trans JYOTI Poly Negative 08/27/16 15:20 - Imaging and Cardiology Abdominal x-ray: image reviewed
--- NOTE | 2016-08-29 09:32 | Event Note ---
Date: 08/29/16 Discussion last pm with Dr. Cantu of GI. Acute Fatty liver disease of may better explain this patients findings and that related to her at [facility]. currently has similar liver and renal findings and anemia.
[2016-08-29] MEDS: LEVAQUIN 750MG/150ML 150 ML IV SCH (09:39)
[2016-08-29] MEDS ORDERED: NACL 0.9% 500 ML 500 ML IV SCH (10:00)
--- NOTE | 2016-08-29 10:33 | Progress Note ---
Assessment and Plan Current antibiotics: Levaquin 750 mg IV q24h 08/28 --> Vancomycin 1250 mg IV q8h 08/28 --> Previous antibiotics: Zosyn 2.25 g IV every 6 hours (08/23-08/25) Tamiflu (75 mg po 08/22) Immunosuppressants: Solu-Medrol 20 mg IV 1 ( 08/27) Health maintenance record: HIV negative Hepatitis A, B, C negative Toxoplasma IgM negative Rubella IgG positive (immune) Parvovirus B19 IgM negative, IgG positive (past exposure) Rh- ASSESSMENT: Ms Lopez is a 41-year-old female without known chronic medical problems who [facility] with flulike symptoms in association with 31.2 weeks IUP. She developed evidence of non-reassuring FHR requiring emergent low segment transverse and is now seen with possible sepsis in association with progressive liver failure & possible HELLP syndrome. Problem list: 1. Sepsis syndrome with marked leukocytosis and acidosis - R/O aspiration - R/O UTI - R/O biliary sepsis - R/O viral syndrome -Rule out all secondary to primary problem without infection 2. R/O HELLP syndrome (hemolysis, elevated liver enzymes, thrombocytopenia) 3. Anemia - Acute/ anemia of - s/p PRBCs x 4 4. Coagulopathy secondary to above - s/p 2 units FFP 5. SHAUNA - Improved 6. s/p 32 WK IUP- s/p 08/22 PLAN: - Suspect current findings are due to HELLP syndrome (hemolysis, elevated liver enzymes, thrombocytopenia) rather than infection. - Pending further data though will continue Levaquin and vancomycin. - Follow clinical parameters to include white cell count, liver profile to include fractionated bilirubin, and lactic acid level - Continue supportive care. Jose J Monroe MD [facility] Office: [phone] Subjective Date of service: 08/29/16 Principal diagnosis: Thrombocytopenia,Jaundice HELLP syndrome- resolving, status post Interval history: Still with some right upper quadrant pain. No other complaints. ROS: No subjective fever or chills. No nausea, vomiting or diarrhea. No shortness of breath, cough or pleuritic chest pain Objective - Exam Narrative Exam: GENERAL: Well-developed , nourished appearing female who is alert and in no acute distress. There is marked generalized jaundice. Somewhat anxious appearing. HEENT: Pupils are equal reactive to light and accommodation. Marked sclerael icterus. Oropharynx is normal with no evidence of oral candidiasis or pharyngitis. NECK: Supple. No enlargement of the thyroid gland. No significant cervical lymphadenopathy. No jugular venous distention at 30. LUNGS: Clear with slight diminished breath sounds at bases. HEART: Tachycardic. There are no murmurs, gallops, clicks or rubs heard. ABDOMEN: Soft and slightly distended. Mild generalized tenderness especially in the right upper quadrant. Liver and spleen are not palpably enlarged. No palpable masses. Bowel sounds are normoactive. Ascites is not appreciated. EXTREMITIES: 2+ generalized edema. IV dressings sites are clean. SKIN: No other rash, ulcers or wounds. NEUROLOGIC: No focal findings. - Constitutional Vitals: Vital Signs Temp Pulse Resp BP Pulse Ox 97.6 F 64 18 126/64 98 08/29/16 08:00 08/29/16 09:39 08/29/16 09:00 08/29/16 09:39 08/29/16 09:00 Temperature -Last 24 Hours Temperature 97.6 F Temperature 97.5 F Temperature 97.6 F Temperature 97.7 F - Labs CBC & Chem 7: 08/29/16 04:30 08/29/16 04:30 Labs: Abnormal lab results Laboratory Tests 08/28/16 08/29/16 08/29/16 16:45 04:30 04:30 Carbon Dioxide Lactic Acid 2.0 Total Bilirubin 23.5 H 23.2 H Direct Bilirubin 18.9 H AST 129 H Alkaline Phosphatase 217 H 08/29/16 04:30 Carbon Dioxide 19 L Lactic Acid Total Bilirubin Direct Bilirubin AST 89 H Alkaline Phosphatase 208 H Microbiology 08/28/16 09:30 Peripheral/Venous Blood Culture - Preliminary NO GROWTH AFTER 24 HOURS 08/28/16 09:29 Peripheral/Venous Blood Culture - Preliminary NO GROWTH AFTER 24 HOURS 08/26/16 13:31 Peripheral/Venous Blood Culture - Preliminary NO GROWTH AFTER 48 HOURS 08/26/16 14:44 Peripheral/Venous Blood Culture - Preliminary NO GROWTH AFTER 48 HOURS 08/22/16 21:35 Peripheral/Venous Blood Culture - Final NO GROWTH AFTER 5 DAYS 08/22/16 21:35 Peripheral/Venous Blood Culture - Final NO GROWTH AFTER 5 DAYS 08/25/16 11:41 Urine,Catheterized - Indwelling Catheter Urine Culture - Final NO GROWTH AFTER 48 HOURS 08/22/16 22:07 Nasopharyngeal Swab Influenza Types A,B Antigen (LEIGHANN) - negative 08/23: HIV abs negative 08/22: Parvovirus B19 !gG/IgM negative CMV PCR < 200 Imagin/26: Ultrasound abdomen: Slight pericholecystic fluidlucency suggestive of ascites with gallbladder wall thickness area of small gallbladder sludge without gallstones.
--- NOTE | 2016-08-29 12:29 | Progress Note ---
Assessment and Plan A: POD #7 s/p primary section, suspected acute fatty liver of , Anemia s/p 4 u prbs, Coagulopathy,Thrombocytopenia s/p 2 u FFP; Leukocytosis- undetermined etiology, improving. Currently being followed by Pulmonology, Hematology, ID & GI. P: Wean O2 as tolerated. Saline nasal spray for dry nasal passages. Continue supportive care. Awaiting GI recommendations regarding potential transfer to another facility. Subjective - Subjective Date of service: 08/29/16 Principal diagnosis: Thrombocytopenia,Jaundice HELLP syndrome- resolving, status post Interval history: Pt reports feeling hungry and that her nose is dry secondary to nasal canula. She denies much incision pain. She is surrounded by her family who are anxious for answers regarding the possibility of transfer to another facility as well as the possibility of liver transplant. She is more alert and able to hold a conversation this morning. Patient reports: appetite normal (improving, pt is hungry ), pain well controlled, no voiding normally (conteh in place, dark jean carlos colored urine ), no ambulating normally, no nauseated : transported Objective - Vital Signs Latest vital signs: Vital Signs Temp Pulse Pulse Resp BP Pulse Ox 08/29/16 12:00 67 18 113/53 93 08/29/16 11:30 66 17 111/57 99 08/29/16 11:04 66 12 111/57 100 08/29/16 11:00 66 12 111/57 100 08/29/16 10:30 65 14 134/65 99 08/29/16 10:00 72 17 134/65 99 08/29/16 09:39 64 126/64 08/29/16 09:30 67 17 126/64 98 08/29/16 09:06 68 24 126/64 100 08/29/16 09:00 67 18 126/64 98 08/29/16 08:30 65 13 115/58 98 08/29/16 08:00 97.6 F 66 19 125/64 98 08/29/16 07:30 68 15 115/58 98 08/29/16 07:00 64 12 115/58 97 08/29/16 06:30 65 15 119/63 98 08/29/16 06:00 62 14 119/63 99 08/29/16 05:30 78 19 117/70 97 08/29/16 05:26 96 08/29/16 05:00 83 20 123/61 96 08/29/16 04:30 59 L 12 123/61 98 08/29/16 04:20 69 13 123/61 98 08/29/16 04:12 63 17 123/61 98 08/29/16 04:00 97.5 F L 66 14 123/61 98 08/29/16 03:32 63 14 120/60 98 08/29/16 03:00 65 16 120/60 97 08/29/16 02:30 67 15 120/68 98 08/29/16 02:00 65 17 120/68 96 08/29/16 01:30 67 15 114/64 97 08/29/16 01:00 69 14 114/64 97 08/29/16 00:55 68 113/68 08/29/16 00:30 64 17 132/65 96 08/29/16 00:00 97.6 F 69 17 132/65 96 08/28/16 23:30 69 17 124/67 96 08/28/16 23:10 20 94 08/28/16 23:00 69 15 124/67 96 08/28/16 22:30 62 14 110/68 96 08/28/16 22:26 20 08/28/16 22:06 65 17 110/68 97 08/28/16 22:00 74 19 110/68 96 08/28/16 21:56 18 08/28/16 21:30 69 22 119/69 95 08/28/16 21:00 66 21 119/69 94 08/28/16 20:52 71 22 140/59 96 08/28/16 20:50 70 21 140/59 96 08/28/16 20:30 69 19 140/59 95 08/28/16 20:22 70 23 140/59 94 08/28/16 20:00 97.7 F 61 23 140/59 93 08/28/16 19:32 67 15 126/69 94 08/28/16 19:30 67 16 126/69 94 08/28/16 19:15 22 94 08/28/16 19:00 65 18 126/69 96 08/28/16 18:30 68 17 127/71 97 08/28/16 18:12 70 20 127/71 97 08/28/16 18:00 72 19 127/71 95 08/28/16 17:30 74 19 127/66 96 08/28/16 17:00 71 21 127/66 95 08/28/16 16:30 71 20 118/68 96 08/28/16 16:11 75 19 118/68 96 08/28/16 16:00 68 71 15 118/68 96 08/28/16 15:30 68 14 128/68 96 08/28/16 15:00 72 21 128/68 08/28/16 14:46 75 23 127/70 08/28/16 14:44 73 14 127/70 08/28/16 14:30 77 19 127/70 08/28/16 14:00 75 22 127/70 92 08/28/16 13:40 76 18 129/77 90 08/28/16 13:30 75 18 129/77 94 08/28/16 13:00 82 17 129/77 91 08/28/16 12:30 82 21 126/71 Intake and Output 08/28/16 08/29/16 08/29/16 22:59 06:59 14:59 Intake Total 925 700 450 Output Total 700 1550 1025 Balance 225 -850 -575 Intake: IV 850 650 450 D5w 1,000 ml @ 50 mls/hr 350 400 300 IV DIRECT [facility] Rx#: [id number] Levaquin 750Mg/150Ml 150 150 ml @ 100 mls/hr IV Q24HR [facility] Rx#:[id number] Vancomycin Vial 1,750 mg 500 250 In NaCl 0.9% 500 ml 500 ml @ 333.333 mls/hr IV ONCE ONE Rx#:[id number] Oral 75 50 Output: Urine 700 1550 1025 Indwelling Catheter 700 1550 1025 Other: Total, Intake Amount 25 0 Total, Output Amount 50 100 325 Voiding Method Indwelling Catheter Indwelling Catheter Indwelling Catheter Weight 80 kg Patient Weight 08/30/16 06:59 Weight 80 kg - Exam Narrative Exam: jaundice present Breasts: Present: deferred Cardiovascular: Present: Regular rate Lungs: Present: Clear to auscultation Abdomen: Present: soft, abnormal bowel sounds (hypoactive bowel sounds ) Extremities: Present: edema (generalized ) Incision: Present: intact (with some serosanguinous drainage of the dressing in front of the incision ) - Labs Labs: Abnormal lab results 08/27/16 08/27/16 08/28/16 Range/Units 08:20 11:15 03:19 WBC (4.5-11.0) K/mm3 RBC (3.65-5.03) M/mm3 Hgb (10.1-14.3) gm/dl Hct (30.3-42.9) % RDW (13.2-15.2) % Plt Count (140-440) K/mm3 Lymphocytes % (Manual) (13.4-35.0) % Nucleated RBC % (0.0-0.9) % Seg Neutrophils # Man (1.8-7.7) K/mm3 Monocytes # (Manual) (0.0-0.8) K/mm3 Haptoglobin <15 L (43-212) mg/dL PT (12.2-14.9) Sec. INR (0.87-1.13) Sodium (137-145) mmol/L Carbon Dioxide (22-30) mmol/L BUN (7-17) mg/dL Glucose (65-100) mg/dL POC Glucose 120 H (70-105) Calcium (8.4-10.2) mg/dL Total Bilirubin (0.1-1.2) mg/dL Direct Bilirubin (0-0.2) mg/dL AST (5-40) units/L Alkaline Phosphatase (35-129) units/L Total Protein (6.3-8.2) g/dL Albumin (3.9-5) g/dL Crossmatch See Detail 08/28/16 08/28/16 08/28/16 Range/Units 11:11 12:03 14:03 WBC (4.5-11.0) K/mm3 RBC (3.65-5.03) M/mm3 Hgb (10.1-14.3) gm/dl Hct (30.3-42.9) % RDW (13.2-15.2) % Plt Count (140-440) K/mm3 Lymphocytes % (Manual) (13.4-35.0) % Nucleated RBC % (0.0-0.9) % Seg Neutrophils # Man (1.8-7.7) K/mm3 Monocytes # (Manual) (0.0-0.8) K/mm3 Haptoglobin (43-212) mg/dL PT (12.2-14.9) Sec. INR (0.87-1.13) Sodium (137-145) mmol/L Carbon Dioxide (22-30) mmol/L BUN (7-17) mg/dL Glucose (65-100) mg/dL POC Glucose 153 H 174 H 129 H (70-105) Calcium (8.4-10.2) mg/dL Total Bilirubin (0.1-1.2) mg/dL Direct Bilirubin (0-0.2) mg/dL AST (5-40) units/L Alkaline Phosphatase (35-129) units/L Total Protein (6.3-8.2) g/dL Albumin (3.9-5) g/dL Crossmatch 08/28/16 08/28/16 08/28/16 Range/Units 16:45 16:45 16:45 WBC 23.1 H (4.5-11.0) K/mm3 RBC 2.33 L (3.65-5.03) M/mm3 Hgb 7.2 L (10.1-14.3) gm/dl Hct 21.6 L (30.3-42.9) % RDW 15.6 H (13.2-15.2) % Plt Count 53 L (140-440) K/mm3 Lymphocytes % (Manual) (13.4-35.0) % Nucleated RBC % (0.0-0.9) % Seg Neutrophils # Man (1.8-7.7) K/mm3 Monocytes # (Manual) (0.0-0.8) K/mm3 Haptoglobin (43-212) mg/dL PT 16.6 H (12.2-14.9) Sec. INR 1.35 H (0.87-1.13) Sodium 134 L (137-145) mmol/L Carbon Dioxide 19 L (22-30) mmol/L BUN 54 H (7-17) mg/dL Glucose 134 H (65-100) mg/dL POC Glucose (70-105) Calcium 6.7 L (8.4-10.2) mg/dL Total Bilirubin 23.5 H (0.1-1.2) mg/dL Direct Bilirubin (0-0.2) mg/dL AST 129 H (5-40) units/L Alkaline Phosphatase 217 H (35-129) units/L Total Protein 4.1 L (6.3-8.2) g/dL Albumin 1.7 L (3.9-5) g/dL Crossmatch 08/28/16 08/28/16 08/28/16 Range/Units 16:49 18:32 20:22 WBC (4.5-11.0) K/mm3 RBC (3.65-5.03) M/mm3 Hgb (10.1-14.3) gm/dl Hct (30.3-42.9) % RDW (13.2-15.2) % Plt Count (140-440) K/mm3 Lymphocytes % (Manual) (13.4-35.0) % Nucleated RBC % (0.0-0.9) % Seg Neutrophils # Man (1.8-7.7) K/mm3 Monocytes # (Manual) (0.0-0.8) K/mm3 Haptoglobin (43-212) mg/dL PT (12.2-14.9) Sec. INR (0.87-1.13) Sodium (137-145) mmol/L Carbon Dioxide (22-30) mmol/L BUN (7-17) mg/dL Glucose (65-100) mg/dL POC Glucose 142 H 144 H 138 H (70-105) Calcium (8.4-10.2) mg/dL Total Bilirubin (0.1-1.2) mg/dL Direct Bilirubin (0-0.2) mg/dL AST (5-40) units/L Alkaline Phosphatase (35-129) units/L Total Protein (6.3-8.2) g/dL Albumin (3.9-5) g/dL Crossmatch 08/28/16 08/28/16 08/29/16 Range/Units 21:58 23:55 02:05 WBC (4.5-11.0) K/mm3 RBC (3.65-5.03) M/mm3 Hgb (10.1-14.3) gm/dl Hct (30.3-42.9) % RDW (13.2-15.2) % Plt Count (140-440) K/mm3 Lymphocytes % (Manual) (13.4-35.0) % Nucleated RBC % (0.0-0.9) % Seg Neutrophils # Man (1.8-7.7) K/mm3 Monocytes # (Manual) (0.0-0.8) K/mm3 Haptoglobin (43-212) mg/dL PT (12.2-14.9) Sec. INR (0.87-1.13) Sodium (137-145) mmol/L Carbon Dioxide (22-30) mmol/L BUN (7-17) mg/dL Glucose (65-100) mg/dL POC Glucose 178 H 187 H 173 H (70-105) Calcium (8.4-10.2) mg/dL Total Bilirubin (0.1-1.2) mg/dL Direct Bilirubin (0-0.2) mg/dL AST (5-40) units/L Alkaline Phosphatase (35-129) units/L Total Protein (6.3-8.2) g/dL Albumin (3.9-5) g/dL Crossmatch 08/29/16 08/29/16 08/29/16 Range/Units 03:57 04:30 04:30 WBC 19.4 H (4.5-11.0) K/mm3 RBC 2.24 L (3.65-5.03) M/mm3 Hgb 6.9 L (10.1-14.3) gm/dl Hct 20.6 L (30.3-42.9) % RDW 16.1 H (13.2-15.2) % Plt Count 51 L (140-440) K/mm3 Lymphocytes % (Manual) 7.0 L (13.4-35.0) % Nucleated RBC % 7.0 H (0.0-0.9) % Seg Neutrophils # Man 13.2 H (1.8-7.7) K/mm3 Monocytes # (Manual) 1.2 H (0.0-0.8) K/mm3 Haptoglobin (43-212) mg/dL PT (12.2-14.9) Sec. INR (0.87-1.13) Sodium (137-145) mmol/L Carbon Dioxide (22-30) mmol/L BUN (7-17) mg/dL Glucose (65-100) mg/dL POC Glucose 161 H (70-105) Calcium (8.4-10.2) mg/dL Total Bilirubin 23.2 H (0.1-1.2) mg/dL Direct Bilirubin 18.9 H (0-0.2) mg/dL AST (5-40) units/L Alkaline Phosphatase (35-129) units/L Total Protein (6.3-8.2) g/dL Albumin (3.9-5) g/dL Crossmatch 08/29/16 08/29/16 08/29/16 Range/Units 04:30 05:53 07:56 WBC (4.5-11.0) K/mm3 RBC (3.65-5.03) M/mm3 Hgb (10.1-14.3) gm/dl Hct (30.3-42.9) % RDW (13.2-15.2) % Plt Count (140-440) K/mm3 Lymphocytes % (Manual) (13.4-35.0) % Nucleated RBC % (0.0-0.9) % Seg Neutrophils # Man (1.8-7.7) K/mm3 Monocytes # (Manual) (0.0-0.8) K/mm3 Haptoglobin (43-212) mg/dL PT (12.2-14.9) Sec. INR (0.87-1.13) Sodium 132 L (137-145) mmol/L Carbon Dioxide 19 L (22-30) mmol/L BUN 53 H (7-17) mg/dL Glucose 160 H (65-100) mg/dL POC Glucose 160 H 144 H (70-105) Calcium 6.7 L (8.4-10.2) mg/dL Total Bilirubin 23.2 H (0.1-1.2) mg/dL Direct Bilirubin (0-0.2) mg/dL AST 89 H (5-40) units/L Alkaline Phosphatase 208 H (35-129) units/L Total Protein 4.1 L (6.3-8.2) g/dL Albumin 1.7 L (3.9-5) g/dL Crossmatch 08/29/16 Range/Units 11:50 WBC (4.5-11.0) K/mm3 RBC (3.65-5.03) M/mm3 Hgb (10.1-14.3) gm/dl Hct (30.3-42.9) % RDW (13.2-15.2) % Plt Count (140-440) K/mm3 Lymphocytes % (Manual) (13.4-35.0) % Nucleated RBC % (0.0-0.9) % Seg Neutrophils # Man (1.8-7.7) K/mm3 Monocytes # (Manual) (0.0-0.8) K/mm3 Haptoglobin (43-212) mg/dL PT (12.2-14.9) Sec. INR (0.87-1.13) Sodium (137-145) mmol/L Carbon Dioxide (22-30) mmol/L BUN (7-17) mg/dL Glucose (65-100) mg/dL POC Glucose 155 H (70-105) Calcium (8.4-10.2) mg/dL Total Bilirubin (0.1-1.2) mg/dL Direct Bilirubin (0-0.2) mg/dL AST (5-40) units/L Alkaline Phosphatase (35-129) units/L Total Protein (6.3-8.2) g/dL Albumin (3.9-5) g/dL Crossmatch
--- NOTE | 2016-08-29 15:10 | Gastroenterology Progress Note ---
Assessment and Plan - Patient Problems (1) HELLP (hemolytic anemia/elev liver enzymes/low platelets in ) Current Visit: Yes Status: Acute Plan to address problem: She appears to be stable overnight. She has liver failure, but is clinically stable. T. bili is unchanged. No PSE. Transaminases are somewhat lower. Neither [facility] nor [facility] has accepted her for transfer. This was discussed with the family along with her medical condition at length. She will be watched carefully in the ICU and labs re checked daily. Diet will be advanced as tolerated. I am cautiously optimistic and have informed the family. Subjective Date of service: 08/29/16 Principal diagnosis: Thrombocytopenia,Jaundice HELLP syndrome- resolving, status post Interval history: The patient reports feeling better. Hungry. No nausea, abdominal pain. Objective - Constitutional Vitals: Temp Pulse Resp BP Pulse Ox 97.6 F 67 18 113/53 95 08/29/16 08:00 08/29/16 12:00 08/29/16 12:00 08/29/16 12:00 08/29/16 12:00 General appearance: no acute distress, other (fully alert) - EENT ENT: hearing intact, clear oral mucosa - Neck Neck: supple, normal ROM - Respiratory Respiratory effort: normal Respiratory: bilateral: CTA - Cardiovascular Rhythm: regular - Extremities Extremities: pulses intact, No edema, normal color, Full ROM - Gastrointestinal General gastrointestinal: Present: soft, non-tender, non-distended, normal bowel sounds - Neurologic Neurological: alert and oriented x3, strength equal bilaterally, other (No asterixix) - Psychiatric Psychiatric: appropriate mood/affect, intact judgment & insight - Labs CBC & Chem 7: 08/29/16 04:30 08/29/16 04:30 Labs: Laboratory Results - last 24 hr 08/27/16 08/27/16 08/28/16 08:20 11:15 11:11 WBC RBC Hgb Hct MCV MCH MCHC RDW Plt Count Add Manual Diff Total Counted Seg Neuts % (Manual) Band Neutrophils % Lymphocytes % (Manual) Reactive Lymphs % (Man) Monocytes % (Manual) Eosinophils % (Manual) Basophils % (Manual) Metamyelocytes % Myelocytes % Promyelocytes % Blast Cells % Nucleated RBC % Seg Neutrophils # Man Band Neutrophils # Lymphocytes # (Manual) Abs React Lymphs (Man) Monocytes # (Manual) Eosinophils # (Manual) Basophils # (Manual) Metamyelocytes # Myelocytes # Promyelocytes # Blast Cells # WBC Morphology Hypersegmented Neuts Hyposegmented Neuts Hypogranular Neuts Smudge Cells Toxic Granulation Toxic Vacuolation Dohle Bodies Pelger-Huet Anomaly [place] Rods Platelet Estimate Clumped Platelets Plt Clumps, EDTA Large Platelets Giant Platelets Platelet Satelliting Plt Morphology Comment RBC Morphology Dimorphic RBCs Polychromasia Hypochromasia Poikilocytosis Anisocytosis Microcytosis Macrocytosis Spherocytes Pappenheimer Bodies Sickle Cells Target Cells Tear Drop Cells Ovalocytes Helmet Cells Whittaker-Osco Bodies [place] Rings [place] Cells Bite Cells Crenated Cell Elliptocytes Acanthocytes (Spur) Rouleaux Hemoglobin C Crystals Schistocytes Malaria parasites Daljit Bodies Haptoglobin <15 L Hem Pathologist Commnt PT INR Sodium Potassium Chloride Carbon Dioxide Anion Gap BUN Creatinine Estimated GFR BUN/Creatinine Ratio Glucose POC Glucose 153 H Lactic Acid Calcium Total Bilirubin Direct Bilirubin Indirect Bilirubin AST ALT Alkaline Phosphatase Total Protein Albumin Albumin/Globulin Ratio Blood Type O NEGATIVE Antibody Screen Positive Antibody Identification Anti-D (Passively Aquired) Crossmatch See Detail 08/28/16 08/28/16 08/28/16 12:03 14:03 16:45 WBC 23.1 H RBC 2.33 L Hgb 7.2 L Hct 21.6 L MCV 93 MCH 31 MCHC 33 RDW 15.6 H Plt Count 53 L Add Manual Diff Total Counted Seg Neuts % (Manual) Band Neutrophils % Lymphocytes % (Manual) Reactive Lymphs % (Man) Monocytes % (Manual) Eosinophils % (Manual) Basophils % (Manual) Metamyelocytes % Myelocytes % Promyelocytes % Blast Cells % Nucleated RBC % Seg Neutrophils # Man Band Neutrophils # Lymphocytes # (Manual) Abs React Lymphs (Man) Monocytes # (Manual) Eosinophils # (Manual) Basophils # (Manual) Metamyelocytes # Myelocytes # Promyelocytes # Blast Cells # WBC Morphology Hypersegmented Neuts Hyposegmented Neuts Hypogranular Neuts Smudge Cells Toxic Granulation Toxic Vacuolation Dohle Bodies Pelger-Huet Anomaly [place] Rods Platelet Estimate Clumped Platelets Plt Clumps, EDTA Large Platelets Giant Platelets Platelet Satelliting Plt Morphology Comment RBC Morphology Dimorphic RBCs Polychromasia Hypochromasia Poikilocytosis Anisocytosis Microcytosis Macrocytosis Spherocytes Pappenheimer Bodies Sickle Cells Target Cells Tear Drop Cells Ovalocytes Helmet Cells Whittaker-Osco Bodies [place] Rings [place] Cells Bite Cells Crenated Cell Elliptocytes Acanthocytes (Spur) Rouleaux Hemoglobin C Crystals Schistocytes Malaria parasites Daljit Bodies Haptoglobin Hem Pathologist Commnt PT INR Sodium Potassium Chloride Carbon Dioxide Anion Gap BUN Creatinine Estimated GFR BUN/Creatinine Ratio Glucose POC Glucose 174 H 129 H Lactic Acid Calcium Total Bilirubin Direct Bilirubin Indirect Bilirubin AST ALT Alkaline Phosphatase Total Protein Albumin Albumin/Globulin Ratio Blood Type Antibody Screen Antibody Identification Crossmatch 08/28/16 08/28/16 08/28/16 16:45 16:45 16:49 WBC RBC Hgb Hct MCV MCH MCHC RDW Plt Count Add Manual Diff Total Counted Seg Neuts % (Manual) Band Neutrophils % Lymphocytes % (Manual) Reactive Lymphs % (Man) Monocytes % (Manual) Eosinophils % (Manual) Basophils % (Manual) Metamyelocytes % Myelocytes % Promyelocytes % Blast Cells % Nucleated RBC % Seg Neutrophils # Man Band Neutrophils # Lymphocytes # (Manual) Abs React Lymphs (Man) Monocytes # (Manual) Eosinophils # (Manual) Basophils # (Manual) Metamyelocytes # Myelocytes # Promyelocytes # Blast Cells # WBC Morphology Hypersegmented Neuts Hyposegmented Neuts Hypogranular Neuts Smudge Cells Toxic Granulation Toxic Vacuolation Dohle Bodies Pelger-Huet Anomaly [place] Rods Platelet Estimate Clumped Platelets Plt Clumps, EDTA Large Platelets Giant Platelets Platelet Satelliting Plt Morphology Comment RBC Morphology Dimorphic RBCs Polychromasia Hypochromasia Poikilocytosis Anisocytosis Microcytosis Macrocytosis Spherocytes Pappenheimer Bodies Sickle Cells Target Cells Tear Drop Cells Ovalocytes Helmet Cells Whittaker-Osco Bodies Gardiner Rings [place]mya Cells Bite Cells Crenated Cell Elliptocytes Acanthocytes (Spur) Rouleaux Hemoglobin C Crystals Schistocytes Malaria parasites Daljit Bodies Haptoglobin Hem Pathologist Commnt PT 16.6 H INR 1.35 H Sodium 134 L Potassium 4.2 Chloride 102.1 Carbon Dioxide 19 L Anion Gap 17 BUN 54 H Creatinine 0.9 Estimated GFR > 60 BUN/Creatinine Ratio 60.00 Glucose 134 H POC Glucose 142 H Lactic Acid Calcium 6.7 L Total Bilirubin 23.5 H Direct Bilirubin Indirect Bilirubin AST 129 H ALT 46 Alkaline Phosphatase 217 H Total Protein 4.1 L Albumin 1.7 L Albumin/Globulin Ratio 0.7 Blood Type Antibody Screen Antibody Identification Crossmatch 08/28/16 08/28/16 08/28/16 18:32 20:22 21:58 WBC RBC Hgb Hct MCV MCH MCHC RDW Plt Count Add Manual Diff Total Counted Seg Neuts % (Manual) Band Neutrophils % Lymphocytes % (Manual) Reactive Lymphs % (Man) Monocytes % (Manual) Eosinophils % (Manual) Basophils % (Manual) Metamyelocytes % Myelocytes % Promyelocytes % Blast Cells % Nucleated RBC % Seg Neutrophils # Man Band Neutrophils # Lymphocytes # (Manual) Abs React Lymphs (Man) Monocytes # (Manual) Eosinophils # (Manual) Basophils # (Manual) Metamyelocytes # Myelocytes # Promyelocytes # Blast Cells # WBC Morphology Hypersegmented Neuts Hyposegmented Neuts Hypogranular Neuts Smudge Cells Toxic Granulation Toxic Vacuolation Dohle Bodies Pelger-Huet Anomaly [place] Rods Platelet Estimate Clumped Platelets Plt Clumps, EDTA Large Platelets Giant Platelets Platelet Satelliting Plt Morphology Comment RBC Morphology Dimorphic RBCs Polychromasia Hypochromasia Poikilocytosis Anisocytosis Microcytosis Macrocytosis Spherocytes Pappenheimer Bodies Sickle Cells Target Cells Tear Drop Cells Ovalocytes Helmet Cells Whittaker-Osco Bodies [place] Rings [place] Cells Bite Cells Crenated Cell Elliptocytes Acanthocytes (Spur) Rouleaux Hemoglobin C Crystals Schistocytes Malaria parasites Daljit Bodies Haptoglobin Hem Pathologist Commnt PT INR Sodium Potassium Chloride Carbon Dioxide Anion Gap BUN Creatinine Estimated GFR BUN/Creatinine Ratio Glucose POC Glucose 144 H 138 H 178 H Lactic Acid Calcium Total Bilirubin Direct Bilirubin Indirect Bilirubin AST ALT Alkaline Phosphatase Total Protein Albumin Albumin/Globulin Ratio Blood Type Antibody Screen Antibody Identification Crossmatch 08/28/16 08/29/16 08/29/16 23:55 02:05 03:57 WBC RBC Hgb Hct MCV MCH MCHC RDW Plt Count Add Manual Diff Total Counted Seg Neuts % (Manual) Band Neutrophils % Lymphocytes % (Manual) Reactive Lymphs % (Man) Monocytes % (Manual) Eosinophils % (Manual) Basophils % (Manual) Metamyelocytes % Myelocytes % Promyelocytes % Blast Cells % Nucleated RBC % Seg Neutrophils # Man Band Neutrophils # Lymphocytes # (Manual) Abs React Lymphs (Man) Monocytes # (Manual) Eosinophils # (Manual) Basophils # (Manual) Metamyelocytes # Myelocytes # Promyelocytes # Blast Cells # WBC Morphology Hypersegmented Neuts Hyposegmented Neuts Hypogranular Neuts Smudge Cells Toxic Granulation Toxic Vacuolation Dohle Bodies Pelger-Huet Anomaly [place] Rods Platelet Estimate Clumped Platelets Plt Clumps, EDTA Large Platelets Giant Platelets Platelet Satelliting Plt Morphology Comment RBC Morphology Dimorphic RBCs Polychromasia Hypochromasia Poikilocytosis Anisocytosis Microcytosis Macrocytosis Spherocytes Pappenheimer Bodies Sickle Cells Target Cells Tear Drop Cells Ovalocytes Helmet Cells Whittaker-Osco Bodies Gardiner Rings [place] Cells Bite Cells Crenated Cell Elliptocytes Acanthocytes (Spur) Rouleaux Hemoglobin C Crystals Schistocytes Malaria parasites Daljit Bodies Haptoglobin Hem Pathologist Commnt PT INR Sodium Potassium Chloride Carbon Dioxide Anion Gap BUN Creatinine Estimated GFR BUN/Creatinine Ratio Glucose POC Glucose 187 H 173 H 161 H Lactic Acid Calcium Total Bilirubin Direct Bilirubin Indirect Bilirubin AST ALT Alkaline Phosphatase Total Protein Albumin Albumin/Globulin Ratio Blood Type Antibody Screen Antibody Identification Crossmatch 08/29/16 08/29/16 08/29/16 04:30 04:30 04:30 WBC 19.4 H RBC 2.24 L Hgb 6.9 L Hct 20.6 L MCV 92 MCH 31 MCHC 33 RDW 16.1 H Plt Count 51 L Add Manual Diff Complete Total Counted 100 Seg Neuts % (Manual) 68.0 Band Neutrophils % 11.0 Lymphocytes % (Manual) 7.0 L Reactive Lymphs % (Man) 0 Monocytes % (Manual) 6.0 Eosinophils % (Manual) 0 Basophils % (Manual) 0 Metamyelocytes % 8.0 Myelocytes % 0 Promyelocytes % 0 Blast Cells % 0 Nucleated RBC % 7.0 H Seg Neutrophils # Man 13.2 H Band Neutrophils # 2.1 Lymphocytes # (Manual) 1.4 Abs React Lymphs (Man) 0.0 Monocytes # (Manual) 1.2 H Eosinophils # (Manual) 0.0 Basophils # (Manual) 0.0 Metamyelocytes # 1.6 Myelocytes # 0.0 Promyelocytes # 0.0 Blast Cells # 0.0 WBC Morphology Not Reportable Hypersegmented Neuts Not Reportable Hyposegmented Neuts Not Reportable Hypogranular Neuts Not Reportable Smudge Cells Not Reportable Toxic Granulation Not Reportable Toxic Vacuolation Not Reportable Dohle Bodies Not Reportable Pelger-Huet Anomaly Not Reportable [place]a Rods Not Reportable Platelet Estimate Consistent w auto Clumped Platelets Not Reportable Plt Clumps, EDTA Not Reportable Large Platelets Not Reportable Giant Platelets Not Reportable Platelet Satelliting Not Reportable Plt Morphology Comment Not Reportable RBC Morphology Not Reportable Dimorphic RBCs Not Reportable Polychromasia 1+ Hypochromasia 1+ Poikilocytosis Not Reportable Anisocytosis 1+ Microcytosis Not Reportable Macrocytosis Not Reportable Spherocytes Not Reportable Pappenheimer Bodies Not Reportable Sickle Cells Not Reportable Target Cells Not Reportable Tear Drop Cells Not Reportable Ovalocytes Not Reportable Helmet Cells Not Reportable Whittaker-Osco Bodies Not Reportable Gardiner Rings Not Reportable [place] Cells Not Reportable Bite Cells Not Reportable Crenated Cell Not Reportable Elliptocytes Not Reportable Acanthocytes (Spur) Not Reportable Rouleaux Not Reportable Hemoglobin C Crystals Not Reportable Schistocytes Few Malaria parasites Not Reportable Daljit Bodies Not Reportable Haptoglobin Hem Pathologist Commnt No PT INR Sodium Potassium Chloride Carbon Dioxide Anion Gap BUN Creatinine Estimated GFR BUN/Creatinine Ratio Glucose POC Glucose Lactic Acid 2.0 Calcium Total Bilirubin 23.2 H Direct Bilirubin 18.9 H Indirect Bilirubin 4.3 AST ALT Alkaline Phosphatase Total Protein Albumin Albumin/Globulin Ratio Blood Type Antibody Screen Antibody Identification Crossmatch 08/29/16 08/29/16 08/29/16 04:30 05:53 07:56 WBC RBC Hgb Hct MCV MCH MCHC RDW Plt Count Add Manual Diff Total Counted Seg Neuts % (Manual) Band Neutrophils % Lymphocytes % (Manual) Reactive Lymphs % (Man) Monocytes % (Manual) Eosinophils % (Manual) Basophils % (Manual) Metamyelocytes % Myelocytes % Promyelocytes % Blast Cells % Nucleated RBC % Seg Neutrophils # Man Band Neutrophils # Lymphocytes # (Manual) Abs React Lymphs (Man) Monocytes # (Manual) Eosinophils # (Manual) Basophils # (Manual) Metamyelocytes # Myelocytes # Promyelocytes # Blast Cells # WBC Morphology Hypersegmented Neuts Hyposegmented Neuts Hypogranular Neuts Smudge Cells Toxic Granulation Toxic Vacuolation Dohle Bodies Pelger-Huet Anomaly [place] Rods Platelet Estimate Clumped Platelets Plt Clumps, EDTA Large Platelets Giant Platelets Platelet Satelliting Plt Morphology Comment RBC Morphology Dimorphic RBCs Polychromasia Hypochromasia Poikilocytosis Anisocytosis Microcytosis Macrocytosis Spherocytes Pappenheimer Bodies Sickle Cells Target Cells Tear Drop Cells Ovalocytes Helmet Cells Whittaker-Osco Bodies [place] Rings [place] Cells Bite Cells Crenated Cell Elliptocytes Acanthocytes (Spur) Rouleaux Hemoglobin C Crystals Schistocytes Malaria parasites Daljit Bodies Haptoglobin Hem Pathologist Commnt PT INR Sodium 132 L Potassium 4.1 Chloride 100.8 Carbon Dioxide 19 L Anion Gap 16 BUN 53 H Creatinine 0.9 Estimated GFR > 60 BUN/Creatinine Ratio 58.88 Glucose 160 H POC Glucose 160 H 144 H Lactic Acid Calcium 6.7 L Total Bilirubin 23.2 H Direct Bilirubin Indirect Bilirubin AST 89 H ALT 44 Alkaline Phosphatase 208 H Total Protein 4.1 L Albumin 1.7 L Albumin/Globulin Ratio 0.7 Blood Type Antibody Screen Antibody Identification Crossmatch 08/29/16 11:50 WBC RBC Hgb Hct MCV MCH MCHC RDW Plt Count Add Manual Diff Total Counted Seg Neuts % (Manual) Band Neutrophils % Lymphocytes % (Manual) Reactive Lymphs % (Man) Monocytes % (Manual) Eosinophils % (Manual) Basophils % (Manual) Metamyelocytes % Myelocytes % Promyelocytes % Blast Cells % Nucleated RBC % Seg Neutrophils # Man Band Neutrophils # Lymphocytes # (Manual) Abs React Lymphs (Man) Monocytes # (Manual) Eosinophils # (Manual) Basophils # (Manual) Metamyelocytes # Myelocytes # Promyelocytes # Blast Cells # WBC Morphology Hypersegmented Neuts Hyposegmented Neuts Hypogranular Neuts Smudge Cells Toxic Granulation Toxic Vacuolation Dohle Bodies Pelger-Huet Anomaly [place]a Rods Platelet Estimate Clumped Platelets Plt Clumps, EDTA Large Platelets Giant Platelets Platelet Satelliting Plt Morphology Comment RBC Morphology Dimorphic RBCs Polychromasia Hypochromasia Poikilocytosis Anisocytosis Microcytosis Macrocytosis Spherocytes Pappenheimer Bodies Sickle Cells Target Cells Tear Drop Cells Ovalocytes Helmet Cells Whittaker-Osco Bodies Gard[place] Rings [place] Cells Bite Cells Crenated Cell Elliptocytes Acanthocytes (Spur) Rouleaux Hemoglobin C Crystals Schistocytes Malaria parasites Daljit Bodies Haptoglobin Hem Pathologist Commnt PT INR Sodium Potassium Chloride Carbon Dioxide Anion Gap BUN Creatinine Estimated GFR BUN/Creatinine Ratio Glucose POC Glucose 155 H Lactic Acid Calcium Total Bilirubin Direct Bilirubin Indirect Bilirubin AST ALT Alkaline Phosphatase Total Protein Albumin Albumin/Globulin Ratio Blood Type Antibody Screen Antibody Identification Crossmatch
--- NOTE | 2016-08-29 17:47 | Progress Note ---
Assessment and Plan Imp: 1. HELLP vs. acute fatty liver of 2. Acute respiratory failure, hypoxia, resolved 3. SHAUNA, resolved 4. SIRS 5. Thrombocytopenia, 2/2 liver failure Rec: 1. SCDs 2. Plan per GI; monitoring conservatively for recovery of liver function 3. ABX per ID Plan of care reviewed w/ patient/family, they understand/agree Subjective Date of service: 08/29/16 Principal diagnosis: Thrombocytopenia,Jaundice HELLP syndrome- resolving, status post Interval history: No events. Awake, alert. Eating dinner, tolerating well. No N/V, pain. Active Medications Acetaminophen (Tylenol) 650 mg PO Q4H PRN PRN Reason: Fever >100.5/MARCUS Acetaminophen/Hydrocodone Bitart ([place] 5/325) 1 each PO Q6H PRN PRN Reason: Pain, Moderate (4-6) Last Admin: 08/24/16 19:13 Dose: 1 each Bisacodyl (Dulcolax) 5 mg PO QHS PRN PRN Reason: Constipation Last Admin: 08/28/16 14:57 Dose: 5 mg Dextrose (D5w) 1,000 mls @ 50 mls/hr IV DIRECT VANESSA Last Admin: 08/29/16 05:22 Dose: 50 mls/hr Levofloxacin/Dextrose (Levaquin 750mg/150ml) 150 mls @ 100 mls/hr IV Q24HR VANESSA PRN Reason: Protocol Last Admin: 08/29/16 09:39 Dose: 100 mls/hr Vancomycin HCl 1,250 mg/ (Sodium Chloride) 250 mls @ 166.667 mls/hr IV Q8HR [facility] Last Admin: 08/29/16 14:37 Dose: 166.667 mls/hr Sodium Chloride (Nacl 0.9% 500 Ml) 500 mls @ 50 mls/hr IV DIRECT VANESSA Ibuprofen (Motrin) 800 mg PO Q6H PRN PRN Reason: Pain, Mild (1-3) Labetalol HCl (Normodyne) 100 mg PO BID [facility] Last Admin: 08/29/16 09:39 Dose: 100 mg Morphine Sulfate (Morphine) 2 mg IV Q6HR PRN PRN Reason: Pain, Moderate (4-6) Last Admin: 08/28/16 21:56 Dose: 2 mg Multi-Ingredient Ointment (Lansinoh) 1 applic TP PRN PRN PRN Reason: dryness/cracking Naloxone HCl (Narcan 0.4 Mg/1 Ml) 0.1 mg IV Q2MIN PRN PRN Reason: Res Rate </= 8 or 02 SAT < 92% Last Admin: 08/23/16 04:45 Dose: 0.1 mg Ondansetron HCl (Zofran) 4 mg IV Q4H PRN PRN Reason: Nausea And Vomiting Last Admin: 08/27/16 19:53 Dose: 4 mg Oxycodone/Acetaminophen (Percocet 5/325) 1 tab PO Q6H PRN PRN Reason: Pain, Moderate (4-6) Oxycodone/Acetaminophen (Percocet 5/325) 2 tab PO Q6H PRN PRN Reason: Moder Pain unrelieved by [place] Vancomycin HCl (Vancomycin Pharmacy To Dose) 1 each IV PKCONSULT VANESSA PRN Reason: Protocol [place] Chloe/Glycerin (Tucks Pad) 1 each TP PRN PRN PRN Reason: Hemorrhoids/cleansing/soothing Objective Vital Signs - 12hr 08/29/16 08/29/16 08/29/16 06:00 06:30 07:00 Temperature Pulse Rate 62 65 64 Respiratory 14 15 12 Rate Blood Pressure 119/63 119/63 115/58 O2 Sat by Pulse 99 98 97 Oximetry 08/29/16 08/29/16 08/29/16 07:30 08:00 08:30 Temperature 97.6 F Pulse Rate 68 66 65 Respiratory 15 19 13 Rate Blood Pressure 115/58 125/64 115/58 O2 Sat by Pulse 98 98 98 Oximetry 08/29/16 08/29/16 08/29/16 09:00 09:06 09:30 Temperature Pulse Rate 67 68 67 Respiratory 18 24 17 Rate Blood Pressure 126/64 126/64 126/64 O2 Sat by Pulse 98 100 98 Oximetry 08/29/16 08/29/16 08/29/16 09:39 10:00 10:30 Temperature Pulse Rate 64 72 65 Respiratory 17 14 Rate Blood Pressure 126/64 134/65 134/65 O2 Sat by Pulse 99 99 Oximetry 08/29/16 08/29/16 08/29/16 11:00 11:04 11:30 Temperature Pulse Rate 66 66 66 Respiratory 12 12 17 Rate Blood Pressure 111/57 111/57 111/57 O2 Sat by Pulse 100 100 99 Oximetry 08/29/16 08/29/16 08/29/16 12:00 12:22 12:30 Temperature Pulse Rate 67 66 72 Respiratory 18 15 16 Rate Blood Pressure 113/53 113/53 113/53 O2 Sat by Pulse 93 94 94 Oximetry 08/29/16 08/29/16 08/29/16 13:00 13:30 14:00 Temperature Pulse Rate 72 67 62 Respiratory 18 12 20 Rate Blood Pressure 118/63 118/63 105/51 O2 Sat by Pulse 95 95 96 Oximetry 08/29/16 08/29/16 08/29/16 14:30 15:00 15:06 Temperature Pulse Rate 70 67 72 Respiratory 16 17 17 Rate Blood Pressure 105/51 106/52 106/52 O2 Sat by Pulse 96 95 95 Oximetry 08/29/16 08/29/16 08/29/16 15:30 15:48 15:57 Temperature 98.2 F Pulse Rate 61 70 Respiratory 16 18 Rate Blood Pressure 106/52 106/52 O2 Sat by Pulse 95 96 Oximetry 08/29/16 08/29/16 08/29/16 16:00 16:30 17:00 Temperature Pulse Rate 68 70 62 Respiratory 21 18 18 Rate Blood Pressure 115/54 115/54 113/56 O2 Sat by Pulse 96 96 97 Oximetry Constitutional: no acute distress, alert, other (sleepy, do responsive and answering questions) Eyes: icteric ENT: oropharynx moist Neck: supple Ascultation: Bilateral: clear Cardiovascular: regular rate and rhythm (no mrg) Gastrointestinal: normoactive bowel sounds, soft, non-tender, non-distended Integumentary: other (jaundice) Extremities: no cyanosis, pink and warm, edema (2+ bilateral LE edema) Neurologic: normal mental status, non-focal exam, pupils equal and round, CN II- XII normal, motor strength normal and Psychiatric: mood appropriate, affect normal CBC and BMP: 08/29/16 04:30 08/29/16 04:30 ABG, PT/INR, D-dimer: ABG POC ABG pH 7.479 (7.35-7.45) H 08/24/16 14:12 POC ABG pCO2 29.6 (35-45) L 08/24/16 14:12 POC ABG pO2 62 (80-105) L 08/24/16 14:12 POC ABG HCO3 21.9 08/24/16 14:12 POC ABG Total CO2 23 08/24/16 14:12 POC ABG O2 Sat 93 08/24/16 14:12 PT/INR, D-dimer PT 16.6 Sec. (12.2-14.9) H 08/28/16 16:45 INR 1.35 (0.87-1.13) H 08/28/16 16:45 Abnormal lab findings: Abnormal Labs 08/22/16 08/22/16 08/22/16 16:00 16:00 17:38 WBC RBC 3.64 L Hgb Hct RDW Plt Count 137 L Lymph % (Auto) 12.3 L [place] # Seg Neutrophils % 81.9 H Seg Neuts % (Manual) Lymphocytes % (Manual) Nucleated RBC % Seg Neutrophils # 8.3 H Seg Neutrophils # Man Lymphocytes # (Manual) Monocytes # (Manual) Percent Retic Haptoglobin PT INR APTT POC ABG pH 7.117 L POC ABG pCO2 49.2 H POC ABG pO2 20 L Sodium Potassium Chloride Carbon Dioxide BUN Creatinine Glucose POC Glucose Lactic Acid Calcium Magnesium Total Bilirubin Direct Bilirubin AST ALT Alkaline Phosphatase Ammonia Lactate Dehydrogenase Total Creatine Kinase Total Protein Albumin LDL Cholesterol Direct Vitamin B12 Urine WBC (Auto) Miscellaneous Test Crossmatch See Detail 08/22/16 08/22/16 08/22/16 17:43 18:48 18:54 WBC 13.2 H RBC 3.62 L Hgb Hct RDW Plt Count 115 L Lymph % (Auto) 8.8 L [place] # Seg Neutrophils % 87.0 H Seg Neuts % (Manual) Lymphocytes % (Manual) Nucleated RBC % Seg Neutrophils # 11.5 H Seg Neutrophils # Man Lymphocytes # (Manual) Monocytes # (Manual) Percent Retic Haptoglobin PT INR APTT POC ABG pH 7.078 L POC ABG pCO2 POC ABG pO2 25 L Sodium Potassium Chloride Carbon Dioxide BUN Creatinine Glucose POC Glucose Lactic Acid Calcium Magnesium Total Bilirubin Direct Bilirubin AST ALT Alkaline Phosphatase Ammonia Lactate Dehydrogenase Total Creatine Kinase Total Protein Albumin LDL Cholesterol Direct Vitamin B12 Urine WBC (Auto) Miscellaneous Test Flexitest 1 H Crossmatch 08/23/16 08/23/16 08/23/16 05:19 07:50 07:50 WBC 17.0 H RBC 3.16 L Hgb 9.9 L 9.7 L Hct 30.0 L RDW Plt Count 125 L Lymph % (Auto) [place] # 1.1 H Seg Neutrophils % 77.2 H Seg Neuts % (Manual) Lymphocytes % (Manual) Nucleated RBC % Seg Neutrophils # 13.1 H Seg Neutrophils # Man Lymphocytes # (Manual) Monocytes # (Manual) Percent Retic Haptoglobin PT INR APTT POC ABG pH POC ABG pCO2 POC ABG pO2 Sodium Potassium 5.9 H Chloride Carbon Dioxide 12 L BUN 18 H Creatinine 3.1 H Glucose 39 L* POC Glucose Lactic Acid Calcium Magnesium Total Bilirubin 4.3 H Direct Bilirubin 3.9 H AST 676 H ALT 470 H Alkaline Phosphatase 394 H Ammonia Lactate Dehydrogenase Total Creatine Kinase Total Protein 4.3 L Albumin 1.6 L LDL Cholesterol Direct 38 L Vitamin B12 Urine WBC (Auto) Miscellaneous Test Crossmatch 08/23/16 08/23/16 08/23/16 08:19 08:39 09:00 WBC RBC Hgb Hct RDW Plt Count Lymph % (Auto) [place] # Seg Neutrophils % Seg Neuts % (Manual) Lymphocytes % (Manual) Nucleated RBC % Seg Neutrophils # Seg Neutrophils # Man Lymphocytes # (Manual) Monocytes # (Manual) Percent Retic Haptoglobin PT 23.7 H INR 2.11 H APTT POC ABG pH POC ABG pCO2 POC ABG pO2 Sodium Potassium Chloride Carbon Dioxide BUN Creatinine Glucose POC Glucose 52 L 178 H Lactic Acid Calcium Magnesium Total Bilirubin Direct Bilirubin AST ALT Alkaline Phosphatase Ammonia Lactate Dehydrogenase Total Creatine Kinase Total Protein Albumin LDL Cholesterol Direct Vitamin B12 Urine WBC (Auto) Miscellaneous Test Crossmatch 08/23/16 08/23/16 08/23/16 09:25 11:05 12:02 WBC RBC Hgb Hct RDW Plt Count Lymph % (Auto) [place] # Seg Neutrophils % Seg Neuts % (Manual) Lymphocytes % (Manual) Nucleated RBC % Seg Neutrophils # Seg Neutrophils # Man Lymphocytes # (Manual) Monocytes # (Manual) Percent Retic Haptoglobin PT INR APTT POC ABG pH POC ABG pCO2 POC ABG pO2 Sodium Potassium Chloride Carbon Dioxide BUN Creatinine Glucose POC Glucose 134 H 130 H Lactic Acid 10.0 H* Calcium Magnesium Total Bilirubin Direct Bilirubin AST ALT Alkaline Phosphatase Ammonia Lactate Dehydrogenase Total Creatine Kinase Total Protein Albumin LDL Cholesterol Direct Vitamin B12 Urine WBC (Auto) Miscellaneous Test Crossmatch 08/23/16 08/23/16 08/23/16 12:26 12:49 15:30 WBC RBC Hgb Hct RDW Plt Count Lymph % (Auto) [place] # Seg Neutrophils % Seg Neuts % (Manual) Lymphocytes % (Manual) Nucleated RBC % Seg Neutrophils # Seg Neutrophils # Man Lymphocytes # (Manual) Monocytes # (Manual) Percent Retic Haptoglobin PT INR APTT POC ABG pH POC ABG pCO2 POC ABG pO2 Sodium Potassium 5.5 H 5.1 H Chloride Carbon Dioxide 13 L BUN 19 H Creatinine 3.1 H Glucose 124 H POC Glucose 145 H Lactic Acid Calcium 8.3 L Magnesium Total Bilirubin 4.4 H Direct Bilirubin AST 521 H ALT 377 H Alkaline Phosphatase 345 H Ammonia Lactate Dehydrogenase 511 H Total Creatine Kinase Total Protein 4.6 L Albumin 1.9 L LDL Cholesterol Direct Vitamin B12 Urine WBC (Auto) Miscellaneous Test Crossmatch 08/23/16 08/23/16 08/23/16 15:30 15:30 15:30 WBC RBC Hgb Hct RDW Plt Count Lymph % (Auto) [place] # Seg Neutrophils % Seg Neuts % (Manual) Lymphocytes % (Manual) Nucleated RBC % Seg Neutrophils # Seg Neutrophils # Man Lymphocytes # (Manual) Monocytes # (Manual) Percent Retic Haptoglobin PT 21.4 H INR 1.86 H APTT POC ABG pH POC ABG pCO2 POC ABG pO2 Sodium Potassium Chloride Carbon Dioxide BUN Creatinine Glucose POC Glucose Lactic Acid 7.1 H* Calcium Magnesium Total Bilirubin Direct Bilirubin AST ALT Alkaline Phosphatase Ammonia Lactate Dehydrogenase Total Creatine Kinase 1275 H Total Protein Albumin LDL Cholesterol Direct Vitamin B12 Urine WBC (Auto) Miscellaneous Test Crossmatch 08/23/16 08/23/16 08/23/16 15:56 16:19 17:30 WBC RBC Hgb Hct RDW Plt Count Lymph % (Auto) [place] # Seg Neutrophils % Seg Neuts % (Manual) Lymphocytes % (Manual) Nucleated RBC % Seg Neutrophils # Seg Neutrophils # Man Lymphocytes # (Manual) Monocytes # (Manual) Percent Retic Haptoglobin PT INR APTT POC ABG pH 7.288 L POC ABG pCO2 28.5 L POC ABG pO2 66 L Sodium Potassium Chloride Carbon Dioxide BUN Creatinine Glucose POC Glucose 138 H 109 H Lactic Acid Calcium Magnesium Total Bilirubin Direct Bilirubin AST ALT Alkaline Phosphatase Ammonia Lactate Dehydrogenase Total Creatine Kinase Total Protein Albumin LDL Cholesterol Direct Vitamin B12 Urine WBC (Auto) Miscellaneous Test Crossmatch 08/23/16 08/23/16 08/23/16 18:02 20:05 20:23 WBC RBC Hgb Hct RDW Plt Count Lymph % (Auto) [place] # Seg Neutrophils % Seg Neuts % (Manual) Lymphocytes % (Manual) Nucleated RBC % Seg Neutrophils # Seg Neutrophils # Man Lymphocytes # (Manual) Monocytes # (Manual) Percent Retic Haptoglobin PT INR APTT POC ABG pH POC ABG pCO2 POC ABG pO2 Sodium Potassium Chloride Carbon Dioxide 15 L BUN 19 H Creatinine 2.9 H Glucose 117 H POC Glucose 123 H 129 H Lactic Acid Calcium 7.3 L Magnesium Total Bilirubin 4.9 H Direct Bilirubin AST 369 H ALT 258 H Alkaline Phosphatase 291 H Ammonia Lactate Dehydrogenase Total Creatine Kinase Total Protein 4.3 L Albumin 1.7 L LDL Cholesterol Direct Vitamin B12 Urine WBC (Auto) Miscellaneous Test Crossmatch 08/23/16 08/23/16 08/23/16 21:50 21:50 21:50 WBC RBC Hgb Hct RDW Plt Count Lymph % (Auto) [place] # Seg Neutrophils % Seg Neuts % (Manual) Lymphocytes % (Manual) Nucleated RBC % Seg Neutrophils # Seg Neutrophils # Man Lymphocytes # (Manual) Monocytes # (Manual) Percent Retic Haptoglobin PT 22.5 H INR 1.98 H APTT POC ABG pH POC ABG pCO2 POC ABG pO2 Sodium Potassium Chloride Carbon Dioxide BUN Creatinine Glucose POC Glucose Lactic Acid 4.6 H* Calcium Magnesium Total Bilirubin Direct Bilirubin AST ALT Alkaline Phosphatase Ammonia Lactate Dehydrogenase Total Creatine Kinase 1410 H Total Protein Albumin LDL Cholesterol Direct Vitamin B12 Urine WBC (Auto) Miscellaneous Test Crossmatch 08/23/16 08/24/16 08/24/16 22:16 00:13 01:47 WBC RBC Hgb Hct RDW Plt Count Lymph % (Auto) [place] # Seg Neutrophils % Seg Neuts % (Manual) Lymphocytes % (Manual) Nucleated RBC % Seg Neutrophils # Seg Neutrophils # Man Lymphocytes # (Manual) Monocytes # (Manual) Percent Retic Haptoglobin PT INR APTT POC ABG pH POC ABG pCO2 POC ABG pO2 Sodium Potassium Chloride Carbon Dioxide BUN Creatinine Glucose POC Glucose 134 H 120 H 116 H Lactic Acid Calcium Magnesium Total Bilirubin Direct Bilirubin AST ALT Alkaline Phosphatase Ammonia Lactate Dehydrogenase Total Creatine Kinase Total Protein Albumin LDL Cholesterol Direct Vitamin B12 Urine WBC (Auto) Miscellaneous Test Crossmatch 08/24/16 08/24/16 08/24/16 02:37 03:25 04:10 WBC RBC Hgb Hct RDW Plt Count Lymph % (Auto) [place] # Seg Neutrophils % Seg Neuts % (Manual) Lymphocytes % (Manual) Nucleated RBC % Seg Neutrophils # Seg Neutrophils # Man Lymphocytes # (Manual) Monocytes # (Manual) Percent Retic Haptoglobin PT INR APTT POC ABG pH POC ABG pCO2 POC ABG pO2 Sodium Potassium Chloride Carbon Dioxide BUN Creatinine Glucose POC Glucose 107 H 108 H 114 H Lactic Acid Calcium Magnesium Total Bilirubin Direct Bilirubin AST ALT Alkaline Phosphatase Ammonia Lactate Dehydrogenase Total Creatine Kinase Total Protein Albumin LDL Cholesterol Direct Vitamin B12 Urine WBC (Auto) Miscellaneous Test Crossmatch 08/24/16 08/24/16 08/24/16 05:00 05:00 05:00 WBC 12.7 H RBC 2.18 L Hgb 6.7 L D Hct 20.4 L D RDW Plt Count 102 L Lymph % (Auto) [place] # Seg Neutrophils % Seg Neuts % (Manual) Lymphocytes % (Manual) Nucleated RBC % Seg Neutrophils # Seg Neutrophils # Man Lymphocytes # (Manual) Monocytes # (Manual) Percent Retic Haptoglobin PT 22.1 H INR 1.93 H APTT POC ABG pH POC ABG pCO2 POC ABG pO2 Sodium Potassium Chloride 108.0 H Carbon Dioxide 19 L BUN 21 H Creatinine 2.7 H Glucose POC Glucose Lactic Acid Calcium 6.8 L Magnesium Total Bilirubin 4.6 H Direct Bilirubin AST 303 H ALT 204 H Alkaline Phosphatase 280 H Ammonia Lactate Dehydrogenase Total Creatine Kinase 1295 H Total Protein 4.1 L Albumin 1.6 L LDL Cholesterol Direct Vitamin B12 Urine WBC (Auto) Miscellaneous Test Crossmatch 08/24/16 08/24/16 08/24/16 05:00 14:12 14:30 WBC RBC Hgb Hct RDW Plt Count Lymph % (Auto) [place] # Seg Neutrophils % Seg Neuts % (Manual) Lymphocytes % (Manual) Nucleated RBC % Seg Neutrophils # Seg Neutrophils # Man Lymphocytes # (Manual) Monocytes # (Manual) Percent Retic Haptoglobin PT INR APTT POC ABG pH 7.479 H POC ABG pCO2 29.6 L POC ABG pO2 62 L Sodium Potassium Chloride Carbon Dioxide BUN Creatinine Glucose POC Glucose Lactic Acid 3.0 H* Calcium Magnesium Total Bilirubin Direct Bilirubin AST ALT Alkaline Phosphatase Ammonia 61.0 H Lactate Dehydrogenase Total Creatine Kinase Total Protein Albumin LDL Cholesterol Direct Vitamin B12 Urine WBC (Auto) Miscellaneous Test Crossmatch 08/24/16 08/24/16 08/25/16 17:45 23:30 00:55 WBC RBC Hgb Hct RDW Plt Count Lymph % (Auto) [place] # Seg Neutrophils % Seg Neuts % (Manual) Lymphocytes % (Manual) Nucleated RBC % Seg Neutrophils # Seg Neutrophils # Man Lymphocytes # (Manual) Monocytes # (Manual) Percent Retic Haptoglobin PT INR APTT POC ABG pH POC ABG pCO2 POC ABG pO2 Sodium Potassium Chloride Carbon Dioxide BUN Creatinine Glucose POC Glucose 108 H Lactic Acid Calcium Magnesium 4.7 H 6.7 H Total Bilirubin Direct Bilirubin AST ALT Alkaline Phosphatase Ammonia Lactate Dehydrogenase Total Creatine Kinase Total Protein Albumin LDL Cholesterol Direct Vitamin B12 Urine WBC (Auto) Miscellaneous Test Crossmatch 08/25/16 08/25/16 08/25/16 02:14 05:45 05:45 WBC 19.1 H RBC 3.24 L Hgb 9.7 L D Hct 29.1 L D RDW 16.1 H Plt Count 112 L Lymph % (Auto) [place] # Seg Neutrophils % Seg Neuts % (Manual) Lymphocytes % (Manual) Nucleated RBC % Seg Neutrophils # Seg Neutrophils # Man Lymphocytes # (Manual) Monocytes # (Manual) Percent Retic Haptoglobin PT INR APTT POC ABG pH POC ABG pCO2 POC ABG pO2 Sodium Potassium Chloride Carbon Dioxide BUN Creatinine Glucose POC Glucose 106 H Lactic Acid Calcium Magnesium 7.2 H Total Bilirubin Direct Bilirubin AST ALT Alkaline Phosphatase Ammonia Lactate Dehydrogenase Total Creatine Kinase Total Protein Albumin LDL Cholesterol Direct Vitamin B12 Urine WBC (Auto) Miscellaneous Test Crossmatch 08/25/16 08/25/16 08/25/16 05:45 05:45 12:24 WBC 19.4 H RBC 3.22 L Hgb 9.5 L Hct 28.6 L RDW 16.5 H Plt Count 106 L Lymph % (Auto) [place] # Seg Neutrophils % Seg Neuts % (Manual) 76.0 H Lymphocytes % (Manual) 8.0 L Nucleated RBC % 7.0 H Seg Neutrophils # Seg Neutrophils # Man 14.7 H Lymphocytes # (Manual) Monocytes # (Manual) Percent Retic Haptoglobin PT 20.0 H INR 1.70 H APTT 42.3 H POC ABG pH POC ABG pCO2 POC ABG pO2 Sodium 136 L Potassium Chloride Carbon Dioxide BUN 31 H Creatinine 2.9 H Glucose POC Glucose Lactic Acid Calcium 6.7 L Magnesium Total Bilirubin 5.7 H Direct Bilirubin AST 194 H ALT 119 H Alkaline Phosphatase 299 H Ammonia Lactate Dehydrogenase Total Creatine Kinase Total Protein 4.4 L Albumin 1.7 L LDL Cholesterol Direct Vitamin B12 Urine WBC (Auto) Miscellaneous Test Crossmatch 08/25/16 08/25/16 08/25/16 12:40 17:53 19:56 WBC RBC Hgb Hct RDW Plt Count Lymph % (Auto) [place] # Seg Neutrophils % Seg Neuts % (Manual) Lymphocytes % (Manual) Nucleated RBC % Seg Neutrophils # Seg Neutrophils # Man Lymphocytes # (Manual) Monocytes # (Manual) Percent Retic Haptoglobin PT INR APTT POC ABG pH POC ABG pCO2 POC ABG pO2 Sodium Potassium Chloride Carbon Dioxide BUN Creatinine Glucose POC Glucose 107 H Lactic Acid Calcium Magnesium 6.5 H 5.9 H Total Bilirubin Direct Bilirubin AST ALT Alkaline Phosphatase Ammonia Lactate Dehydrogenase Total Creatine Kinase Total Protein Albumin LDL Cholesterol Direct Vitamin B12 Urine WBC (Auto) Miscellaneous Test Crossmatch 08/25/16 08/26/16 08/26/16 23:18 04:50 04:50 WBC 19.1 H RBC 2.73 L Hgb 8.2 L Hct 24.4 L RDW 16.1 H Plt Count 95 L Lymph % (Auto) [place] # Seg Neutrophils % Seg Neuts % (Manual) 86.0 H Lymphocytes % (Manual) 9.0 L Nucleated RBC % 10.0 H Seg Neutrophils # Seg Neutrophils # Man 16.4 H Lymphocytes # (Manual) Monocytes # (Manual) Percent Retic Haptoglobin PT INR APTT POC ABG pH POC ABG pCO2 POC ABG pO2 Sodium 136 L Potassium Chloride Carbon Dioxide BUN 33 H Creatinine 2.0 H Glucose POC Glucose Lactic Acid Calcium 6.3 L Magnesium 5.2 H 4.5 H Total Bilirubin Direct Bilirubin AST ALT Alkaline Phosphatase Ammonia Lactate Dehydrogenase Total Creatine Kinase Total Protein Albumin LDL Cholesterol Direct Vitamin B12 Urine WBC (Auto) Miscellaneous Test Crossmatch 08/26/16 08/26/16 08/26/16 08:26 10:07 14:54 WBC RBC Hgb Hct RDW Plt Count Lymph % (Auto) [place] # Seg Neutrophils % Seg Neuts % (Manual) Lymphocytes % (Manual) Nucleated RBC % Seg Neutrophils # Seg Neutrophils # Man Lymphocytes # (Manual) Monocytes # (Manual) Percent Retic Haptoglobin PT INR APTT POC ABG pH POC ABG pCO2 POC ABG pO2 Sodium Potassium Chloride Carbon Dioxide BUN Creatinine Glucose POC Glucose 115 H 109 H Lactic Acid Calcium Magnesium Total Bilirubin 7.6 H Direct Bilirubin 6.6 H AST 112 H ALT 63 H Alkaline Phosphatase 253 H Ammonia Lactate Dehydrogenase Total Creatine Kinase Total Protein 4.1 L Albumin 1.6 L LDL Cholesterol Direct Vitamin B12 Urine WBC (Auto) Miscellaneous Test Crossmatch 08/26/16 08/26/16 08/26/16 17:47 20:02 21:42 WBC RBC Hgb Hct RDW Plt Count Lymph % (Auto) [place] # Seg Neutrophils % Seg Neuts % (Manual) Lymphocytes % (Manual) Nucleated RBC % Seg Neutrophils # Seg Neutrophils # Man Lymphocytes # (Manual) Monocytes # (Manual) Percent Retic Haptoglobin PT INR APTT POC ABG pH POC ABG pCO2 POC ABG pO2 Sodium Potassium Chloride Carbon Dioxide BUN Creatinine Glucose POC Glucose 120 H 123 H 125 H Lactic Acid Calcium Magnesium Total Bilirubin Direct Bilirubin AST ALT Alkaline Phosphatase Ammonia Lactate Dehydrogenase Total Creatine Kinase Total Protein Albumin LDL Cholesterol Direct Vitamin B12 Urine WBC (Auto) Miscellaneous Test Crossmatch 08/26/16 08/27/16 08/27/16 23:41 01:59 04:01 WBC RBC Hgb Hct RDW Plt Count Lymph % (Auto) [place] # Seg Neutrophils % Seg Neuts % (Manual) Lymphocytes % (Manual) Nucleated RBC % Seg Neutrophils # Seg Neutrophils # Man Lymphocytes # (Manual) Monocytes # (Manual) Percent Retic Haptoglobin PT INR APTT POC ABG pH POC ABG pCO2 POC ABG pO2 Sodium Potassium Chloride Carbon Dioxide BUN Creatinine Glucose POC Glucose 114 H 127 H 144 H Lactic Acid Calcium Magnesium Total Bilirubin Direct Bilirubin AST ALT Alkaline Phosphatase Ammonia Lactate Dehydrogenase Total Creatine Kinase Total Protein Albumin LDL Cholesterol Direct Vitamin B12 Urine WBC (Auto) Miscellaneous Test Crossmatch 08/27/16 08/27/16 08/27/16 05:46 06:37 06:37 WBC 16.1 H RBC 2.19 L Hgb 6.3 L Hct 19.9 L* RDW 16.2 H Plt Count 103 L Lymph % (Auto) [place] # Seg Neutrophils % Seg Neuts % (Manual) 83.0 H Lymphocytes % (Manual) 10.0 L Nucleated RBC % 9.0 H Seg Neutrophils # Seg Neutrophils # Man 13.4 H Lymphocytes # (Manual) Monocytes # (Manual) Percent Retic Haptoglobin PT INR APTT POC ABG pH POC ABG pCO2 POC ABG pO2 Sodium 133 L Potassium Chloride Carbon Dioxide 20 L BUN 31 H Creatinine Glucose 118 H POC Glucose 121 H Lactic Acid Calcium 6.4 L Magnesium Total Bilirubin 9.7 H Direct Bilirubin AST 73 H ALT Alkaline Phosphatase 215 H Ammonia Lactate Dehydrogenase Total Creatine Kinase Total Protein 3.8 L Albumin 1.5 L LDL Cholesterol Direct Vitamin B12 Urine WBC (Auto) Miscellaneous Test Crossmatch 08/27/16 08/27/16 08/27/16 07:50 08:20 08:40 WBC RBC Hgb 6.1 L Hct 18.4 L* RDW Plt Count Lymph % (Auto) [place] # Seg Neutrophils % Seg Neuts % (Manual) Lymphocytes % (Manual) Nucleated RBC % Seg Neutrophils # Seg Neutrophils # Man Lymphocytes # (Manual) Monocytes # (Manual) Percent Retic Haptoglobin PT INR APTT POC ABG pH POC ABG pCO2 POC ABG pO2 Sodium Potassium Chloride Carbon Dioxide BUN Creatinine Glucose POC Glucose 141 H Lactic Acid Calcium Magnesium Total Bilirubin Direct Bilirubin AST ALT Alkaline Phosphatase Ammonia Lactate Dehydrogenase Total Creatine Kinase Total Protein Albumin LDL Cholesterol Direct Vitamin B12 Urine WBC (Auto) Miscellaneous Test Crossmatch See Detail 08/27/16 08/27/16 08/27/16 08:40 09:55 11:15 WBC RBC Hgb Hct RDW Plt Count Lymph % (Auto) [place] # Seg Neutrophils % Seg Neuts % (Manual) Lymphocytes % (Manual) Nucleated RBC % Seg Neutrophils # Seg Neutrophils # Man Lymphocytes # (Manual) Monocytes # (Manual) Percent Retic Haptoglobin PT 17.2 H INR 1.41 H APTT POC ABG pH POC ABG pCO2 POC ABG pO2 Sodium Potassium Chloride Carbon Dioxide BUN Creatinine Glucose POC Glucose 133 H Lactic Acid Calcium Magnesium Total Bilirubin Direct Bilirubin AST ALT Alkaline Phosphatase Ammonia Lactate Dehydrogenase 844 H Total Creatine Kinase Total Protein Albumin LDL Cholesterol Direct Vitamin B12 Urine WBC (Auto) Miscellaneous Test Crossmatch 08/27/16 08/27/16 08/27/16 11:15 11:15 11:15 WBC RBC Hgb Hct RDW Plt Count Lymph % (Auto) [place] # Seg Neutrophils % Seg Neuts % (Manual) Lymphocytes % (Manual) Nucleated RBC % Seg Neutrophils # Seg Neutrophils # Man Lymphocytes # (Manual) Monocytes # (Manual) Percent Retic 6.59 H Haptoglobin <15 L PT INR APTT POC ABG pH POC ABG pCO2 POC ABG pO2 Sodium Potassium Chloride Carbon Dioxide BUN Creatinine Glucose POC Glucose Lactic Acid Calcium Magnesium Total Bilirubin Direct Bilirubin AST ALT Alkaline Phosphatase Ammonia Lactate Dehydrogenase Total Creatine Kinase Total Protein Albumin LDL Cholesterol Direct Vitamin B12 > 2000 H Urine WBC (Auto) Miscellaneous Test Crossmatch 08/27/16 08/27/16 08/27/16 11:59 14:06 15:20 WBC RBC Hgb Hct RDW Plt Count Lymph % (Auto) [place] # Seg Neutrophils % Seg Neuts % (Manual) Lymphocytes % (Manual) Nucleated RBC % Seg Neutrophils # Seg Neutrophils # Man Lymphocytes # (Manual) Monocytes # (Manual) Percent Retic Haptoglobin PT INR APTT POC ABG pH POC ABG pCO2 POC ABG pO2 Sodium Potassium Chloride Carbon Dioxide BUN Creatinine Glucose POC Glucose 129 H 148 H Lactic Acid Calcium Magnesium Total Bilirubin Direct Bilirubin AST ALT Alkaline Phosphatase Ammonia Lactate Dehydrogenase Total Creatine Kinase Total Protein Albumin LDL Cholesterol Direct Vitamin B12 Urine WBC (Auto) 10.0 H Miscellaneous Test Crossmatch 08/27/16 08/27/16 08/27/16 16:23 19:35 19:46 WBC 26.5 H RBC 2.19 L Hgb 6.6 L Hct 20.1 L RDW 15.9 H Plt Count 78 L Lymph % (Auto) [place] # Seg Neutrophils % Seg Neuts % (Manual) Lymphocytes % (Manual) Nucleated RBC % Seg Neutrophils # Seg Neutrophils # Man Lymphocytes # (Manual) Monocytes # (Manual) Percent Retic Haptoglobin PT INR APTT POC ABG pH POC ABG pCO2 POC ABG pO2 Sodium Potassium Chloride Carbon Dioxide BUN Creatinine Glucose POC Glucose 111 H 108 H Lactic Acid Calcium Magnesium Total Bilirubin Direct Bilirubin AST ALT Alkaline Phosphatase Ammonia Lactate Dehydrogenase Total Creatine Kinase Total Protein Albumin LDL Cholesterol Direct Vitamin B12 Urine WBC (Auto) Miscellaneous Test Crossmatch 08/27/16 08/28/16 08/28/16 21:36 00:18 02:22 WBC RBC Hgb Hct RDW Plt Count Lymph % (Auto) [place] # Seg Neutrophils % Seg Neuts % (Manual) Lymphocytes % (Manual) Nucleated RBC % Seg Neutrophils # Seg Neutrophils # Man Lymphocytes # (Manual) Monocytes # (Manual) Percent Retic Haptoglobin PT INR APTT POC ABG pH POC ABG pCO2 POC ABG pO2 Sodium Potassium Chloride Carbon Dioxide BUN Creatinine Glucose POC Glucose 129 H 114 H 121 H Lactic Acid Calcium Magnesium Total Bilirubin Direct Bilirubin AST ALT Alkaline Phosphatase Ammonia Lactate Dehydrogenase Total Creatine Kinase Total Protein Albumin LDL Cholesterol Direct Vitamin B12 Urine WBC (Auto) Miscellaneous Test Crossmatch 08/28/16 08/28/16 08/28/16 03:19 05:30 05:30 WBC 29.9 H RBC 2.54 L Hgb 8.0 L Hct 23.5 L RDW 15.4 H Plt Count 49 L Lymph % (Auto) [place] # Seg Neutrophils % Seg Neuts % (Manual) 91.5 H Lymphocytes % (Manual) 2.0 L Nucleated RBC % 12.0 H Seg Neutrophils # Seg Neutrophils # Man 27.4 H Lymphocytes # (Manual) 0.6 L Monocytes # (Manual) 0.9 H Percent Retic Haptoglobin PT 19.0 H INR 1.60 H APTT POC ABG pH POC ABG pCO2 POC ABG pO2 Sodium Potassium Chloride Carbon Dioxide BUN Creatinine Glucose POC Glucose 120 H Lactic Acid Calcium Magnesium Total Bilirubin Direct Bilirubin AST ALT Alkaline Phosphatase Ammonia Lactate Dehydrogenase Total Creatine Kinase Total Protein Albumin LDL Cholesterol Direct Vitamin B12 Urine WBC (Auto) Miscellaneous Test Crossmatch 08/28/16 08/28/16 08/28/16 05:30 06:03 07:55 WBC RBC Hgb Hct RDW Plt Count Lymph % (Auto) [place] # Seg Neutrophils % Seg Neuts % (Manual) Lymphocytes % (Manual) Nucleated RBC % Seg Neutrophils # Seg Neutrophils # Man Lymphocytes # (Manual) Monocytes # (Manual) Percent Retic Haptoglobin PT INR APTT POC ABG pH POC ABG pCO2 POC ABG pO2 Sodium 133 L Potassium Chloride Carbon Dioxide 19 L BUN 47 H Creatinine Glucose 130 H POC Glucose 142 H 141 H Lactic Acid Calcium 6.7 L Magnesium Total Bilirubin 25.3 H Direct Bilirubin AST 170 H ALT Alkaline Phosphatase 252 H Ammonia Lactate Dehydrogenase Total Creatine Kinase Total Protein 4.2 L Albumin 1.5 L LDL Cholesterol Direct Vitamin B12 Urine WBC (Auto) Miscellaneous Test Crossmatch 08/28/16 08/28/16 08/28/16 11:11 12:03 14:03 WBC RBC Hgb Hct RDW Plt Count Lymph % (Auto) [place] # Seg Neutrophils % Seg Neuts % (Manual) Lymphocytes % (Manual) Nucleated RBC % Seg Neutrophils # Seg Neutrophils # Man Lymphocytes # (Manual) Monocytes # (Manual) Percent Retic Haptoglobin PT INR APTT POC ABG pH POC ABG pCO2 POC ABG pO2 Sodium Potassium Chloride Carbon Dioxide BUN Creatinine Glucose POC Glucose 153 H 174 H 129 H Lactic Acid Calcium Magnesium Total Bilirubin Direct Bilirubin AST ALT Alkaline Phosphatase Ammonia Lactate Dehydrogenase Total Creatine Kinase Total Protein Albumin LDL Cholesterol Direct Vitamin B12 Urine WBC (Auto) Miscellaneous Test Crossmatch 08/28/16 08/28/16 08/28/16 16:45 16:45 16:45 WBC 23.1 H RBC 2.33 L Hgb 7.2 L Hct 21.6 L RDW 15.6 H Plt Count 53 L Lymph % (Auto) [place] # Seg Neutrophils % Seg Neuts % (Manual) Lymphocytes % (Manual) Nucleated RBC % Seg Neutrophils # Seg Neutrophils # Man Lymphocytes # (Manual) Monocytes # (Manual) Percent Retic Haptoglobin PT 16.6 H INR 1.35 H APTT POC ABG pH POC ABG pCO2 POC ABG pO2 Sodium 134 L Potassium Chloride Carbon Dioxide 19 L BUN 54 H Creatinine Glucose 134 H POC Glucose Lactic Acid Calcium 6.7 L Magnesium Total Bilirubin 23.5 H Direct Bilirubin AST 129 H ALT Alkaline Phosphatase 217 H Ammonia Lactate Dehydrogenase Total Creatine Kinase Total Protein 4.1 L Albumin 1.7 L LDL Cholesterol Direct Vitamin B12 Urine WBC (Auto) Miscellaneous Test Crossmatch 08/28/16 08/28/16 08/28/16 16:49 18:32 20:22 WBC RBC Hgb Hct RDW Plt Count Lymph % (Auto) [place] # Seg Neutrophils % Seg Neuts % (Manual) Lymphocytes % (Manual) Nucleated RBC % Seg Neutrophils # Seg Neutrophils # Man Lymphocytes # (Manual) Monocytes # (Manual) Percent Retic Haptoglobin PT INR APTT POC ABG pH POC ABG pCO2 POC ABG pO2 Sodium Potassium Chloride Carbon Dioxide BUN Creatinine Glucose POC Glucose 142 H 144 H 138 H Lactic Acid Calcium Magnesium Total Bilirubin Direct Bilirubin AST ALT Alkaline Phosphatase Ammonia Lactate Dehydrogenase Total Creatine Kinase Total Protein Albumin LDL Cholesterol Direct Vitamin B12 Urine WBC (Auto) Miscellaneous Test Crossmatch 08/28/16 08/28/16 08/29/16 21:58 23:55 02:05 WBC RBC Hgb Hct RDW Plt Count Lymph % (Auto) [place] # Seg Neutrophils % Seg Neuts % (Manual) Lymphocytes % (Manual) Nucleated RBC % Seg Neutrophils # Seg Neutrophils # Man Lymphocytes # (Manual) Monocytes # (Manual) Percent Retic Haptoglobin PT INR APTT POC ABG pH POC ABG pCO2 POC ABG pO2 Sodium Potassium Chloride Carbon Dioxide BUN Creatinine Glucose POC Glucose 178 H 187 H 173 H Lactic Acid Calcium Magnesium Total Bilirubin Direct Bilirubin AST ALT Alkaline Phosphatase Ammonia Lactate Dehydrogenase Total Creatine Kinase Total Protein Albumin LDL Cholesterol Direct Vitamin B12 Urine WBC (Auto) Miscellaneous Test Crossmatch 08/29/16 08/29/16 08/29/16 03:57 04:30 04:30 WBC 19.4 H RBC 2.24 L Hgb 6.9 L Hct 20.6 L RDW 16.1 H Plt Count 51 L Lymph % (Auto) [place] # Seg Neutrophils % Seg Neuts % (Manual) Lymphocytes % (Manual) 7.0 L Nucleated RBC % 7.0 H Seg Neutrophils # Seg Neutrophils # Man 13.2 H Lymphocytes # (Manual) Monocytes # (Manual) 1.2 H Percent Retic Haptoglobin PT INR APTT POC ABG pH POC ABG pCO2 POC ABG pO2 Sodium Potassium Chloride Carbon Dioxide BUN Creatinine Glucose POC Glucose 161 H Lactic Acid Calcium Magnesium Total Bilirubin 23.2 H Direct Bilirubin 18.9 H AST ALT Alkaline Phosphatase Ammonia Lactate Dehydrogenase Total Creatine Kinase Total Protein Albumin LDL Cholesterol Direct Vitamin B12 Urine WBC (Auto) Miscellaneous Test Crossmatch 08/29/16 08/29/16 08/29/16 04:30 05:53 07:56 WBC RBC Hgb Hct RDW Plt Count Lymph % (Auto) [place] # Seg Neutrophils % Seg Neuts % (Manual) Lymphocytes % (Manual) Nucleated RBC % Seg Neutrophils # Seg Neutrophils # Man Lymphocytes # (Manual) Monocytes # (Manual) Percent Retic Haptoglobin PT INR APTT POC ABG pH POC ABG pCO2 POC ABG pO2 Sodium 132 L Potassium Chloride Carbon Dioxide 19 L BUN 53 H Creatinine Glucose 160 H POC Glucose 160 H 144 H Lactic Acid Calcium 6.7 L Magnesium Total Bilirubin 23.2 H Direct Bilirubin AST 89 H ALT Alkaline Phosphatase 208 H Ammonia Lactate Dehydrogenase Total Creatine Kinase Total Protein 4.1 L Albumin 1.7 L LDL Cholesterol Direct Vitamin B12 Urine WBC (Auto) Miscellaneous Test Crossmatch 08/29/16 11:50 WBC RBC Hgb Hct RDW Plt Count Lymph % (Auto) [place] # Seg Neutrophils % Seg Neuts % (Manual) Lymphocytes % (Manual) Nucleated RBC % Seg Neutrophils # Seg Neutrophils # Man Lymphocytes # (Manual) Monocytes # (Manual) Percent Retic Haptoglobin PT INR APTT POC ABG pH POC ABG pCO2 POC ABG pO2 Sodium Potassium Chloride Carbon Dioxide BUN Creatinine Glucose POC Glucose 155 H Lactic Acid Calcium Magnesium Total Bilirubin Direct Bilirubin AST ALT Alkaline Phosphatase Ammonia Lactate Dehydrogenase Total Creatine Kinase Total Protein Albumin LDL Cholesterol Direct Vitamin B12 Urine WBC (Auto) Miscellaneous Test Crossmatch Chest x-ray: report reviewed, image reviewed (clear)
[2016-08-29 19:30] LABS: CYTOMEGALOVIRUS AB IGM <0.2 (())
[2016-08-29] MEDS: DULCOLAX PO PRN (21:56)
[2016-08-30] MEDS: VANCOMYCIN VIAL 1,250 MG in NACL 0.9% 250ML 250 ML IV SCH ×3 (05:41→22:11)
[2016-08-30 06:01] LABS: Hemoglobin 6.9 gm/dl (10.1-14.3); Mean Corpuscular HGB Conc 33 % (30-34); Mean Corpuscular Hemoglobin 31 pg (28-32); Mean Corpuscular Volume 96 fl (79-97); Red Cell Distribution Width 16.7 % (13.2-15.2); White Blood Count 13.2 K/mm3 (4.5-11.0)
[2016-08-30 06:03] LABS: Platelet Count 42 K/mm3 (140-440)
[2016-08-30 06:10] LABS: INR 1.3 (0.87-1.13)
[2016-08-30 06:24] LABS: Alanine Aminotransferase 35 units/L (7-56); Albumin 1.5 g/dL (3.9-5); Albumin/Globulin Ratio 0.7 %; Alkaline Phosphatase 183 units/L (35-129); BUN/Creatinine Ratio 46.66; Blood Urea Nitrogen 42 mg/dL (7-17); Calcium 6.8 mg/dL (8.4-10.2); Carbon Dioxide 20 mmol/L (22-30); Glucose 101 mg/dL (65-100); Potassium 3.4 mmol/L (3.6-5.0); Sodium 139 mmol/L (137-145); Total Protein 3.8 g/dL (6.3-8.2)
[2016-08-30 07:14] LABS: Anion Gap 15 mmol/L
[2016-08-30 07:15] LABS: Bilirubin,Direct 17.9 mg/dL (0-0.2); Bilirubin,Indirect 3.2 mg/dL; Bilirubin,Total 21.1 mg/dL (0.1-1.2)
[2016-08-30 08:08] LABS: Anisocytosis 1+; Basophils % (Manual) 0 % (0.0-1.8); Blastocytes % (Manual) 0 %; Eosinophils % (Manual) 0 % (0.0-4.3)
[2016-08-30 08:09] LABS: Diff Status Complete; Platelet Estimate Consistent w Auto; Polychromasia 1+; Schistocytes Few
--- NOTE | 2016-08-30 09:53 | Hem/Onc Progress Note ---
Assessment and Plan - Patient Problems (1) HELLP (hemolytic anemia/elev liver enzymes/low platelets in ) Current Visit: Yes Status: Acute Plan to address problem: Her counts are stanle. No bleeding. Will hold off any transfusions till platelets < 30 or if bleeding. Cardio vascular stable. Monitor. HAd family conference , all agree with plan. Subjective Date of service: 08/29/16 Interval history: Met with patient. Spoke to family and Dr Guillen. Spoke by phone on speaker with the [employer] A[employer] who provides Ob services. Patient is stable. Weak, wants to eat. No bleeding. More alert per family. Objective - Constitutional Vitals: Last Vital Signs Temp 97.6 F 08/30/16 07:58 Pulse 73 08/30/16 09:30 Resp 21 08/30/16 09:30 BP 122/63 08/30/16 09:30 Pulse Ox 97 08/30/16 09:30 Pain Intensity (0-10): denies any pain General appearance: no acute distress - EENT ENT: hearing intact Lymph node exam: negative cervical - Neck Neck: supple - Respiratory Respiratory: bilateral: CTA - Cardiovascular Rhythm: regular - Gastrointestinal General gastrointestinal: Present: soft - Integumentary Integumentary: clear - Musculoskeletal Musculoskeletal: strength equal bilaterally - Neurologic Neurologic: CNII-XII intact - Psychiatric Psychiatric: appropriate mood/affect - Labs Lab Results: Laboratory Results - last 24 hr 08/22/16 08/27/16 08/29/16 18:34 08:20 11:50 WBC RBC Hgb Hct MCV MCH MCHC RDW Plt Count Add Manual Diff Total Counted Seg Neuts % (Manual) Band Neutrophils % Lymphocytes % (Manual) Reactive Lymphs % (Man) Monocytes % (Manual) Eosinophils % (Manual) Basophils % (Manual) Metamyelocytes % Myelocytes % Promyelocytes % Blast Cells % Nucleated RBC % Seg Neutrophils # Man Band Neutrophils # Lymphocytes # (Manual) Abs React Lymphs (Man) Monocytes # (Manual) Eosinophils # (Manual) Basophils # (Manual) Metamyelocytes # Myelocytes # Promyelocytes # Blast Cells # WBC Morphology Hypersegmented Neuts Hyposegmented Neuts Hypogranular Neuts Smudge Cells Toxic Granulation Toxic Vacuolation Dohle Bodies Pelger-Huet Anomaly [place] Rods Platelet Estimate Clumped Platelets Plt Clumps, EDTA Large Platelets Giant Platelets Platelet Satelliting Plt Morphology Comment RBC Morphology Dimorphic RBCs Polychromasia Hypochromasia Poikilocytosis Anisocytosis Microcytosis Macrocytosis Spherocytes Pappenheimer Bodies Sickle Cells Target Cells Tear Drop Cells Ovalocytes Helmet Cells [place] Bodies [place] Rings [place] Cells Bite Cells Crenated Cell Elliptocytes Acanthocytes (Spur) Rouleaux Hemoglobin C Crystals Schistocytes Malaria parasites Daljit Bodies Hem Pathologist Commnt PT INR Sodium Potassium Chloride Carbon Dioxide Anion Gap BUN Creatinine Estimated GFR BUN/Creatinine Ratio Glucose POC Glucose 155 H Calcium Total Bilirubin Direct Bilirubin Indirect Bilirubin AST ALT Alkaline Phosphatase Ammonia Total Protein Albumin Albumin/Globulin Ratio CMV IgG Ab 2.92 H CMV IgM Ab <0.2 Crossmatch See Detail 08/29/16 08/29/16 08/29/16 15:35 18:05 21:01 WBC RBC Hgb Hct MCV MCH MCHC RDW Plt Count Add Manual Diff Total Counted Seg Neuts % (Manual) Band Neutrophils % Lymphocytes % (Manual) Reactive Lymphs % (Man) Monocytes % (Manual) Eosinophils % (Manual) Basophils % (Manual) Metamyelocytes % Myelocytes % Promyelocytes % Blast Cells % Nucleated RBC % Seg Neutrophils # Man Band Neutrophils # Lymphocytes # (Manual) Abs React Lymphs (Man) Monocytes # (Manual) Eosinophils # (Manual) Basophils # (Manual) Metamyelocytes # Myelocytes # Promyelocytes # Blast Cells # WBC Morphology Hypersegmented Neuts Hyposegmented Neuts Hypogranular Neuts Smudge Cells Toxic Granulation Toxic Vacuolation Dohle Bodies Pelger-Huet Anomaly [place] Rods Platelet Estimate Clumped Platelets Plt Clumps, EDTA Large Platelets Giant Platelets Platelet Satelliting Plt Morphology Comment RBC Morphology Dimorphic RBCs Polychromasia Hypochromasia Poikilocytosis Anisocytosis Microcytosis Macrocytosis Spherocytes Pappenheimer Bodies Sickle Cells Target Cells Tear Drop Cells Ovalocytes Helmet Cells [place] Bodies [place] Rings [place] Cells Bite Cells Crenated Cell Elliptocytes Acanthocytes (Spur) Rouleaux Hemoglobin C Crystals Schistocytes Malaria parasites Daljit Bodies Hem Pathologist Commnt PT INR Sodium Potassium Chloride Carbon Dioxide Anion Gap BUN Creatinine Estimated GFR BUN/Creatinine Ratio Glucose POC Glucose 130 H 148 H 138 H Calcium Total Bilirubin Direct Bilirubin Indirect Bilirubin AST ALT Alkaline Phosphatase Ammonia Total Protein Albumin Albumin/Globulin Ratio CMV IgG Ab CMV IgM Ab Crossmatch 08/30/16 08/30/16 08/30/16 04:00 05:40 06:00 WBC 13.2 H RBC 2.20 L Hgb 6.9 L Hct 21.0 L MCV 96 D MCH 31 MCHC 33 RDW 16.7 H Plt Count 42 L Add Manual Diff Complete Total Counted 100 Seg Neuts % (Manual) 85.0 H Band Neutrophils % 0 Lymphocytes % (Manual) 6.0 L Reactive Lymphs % (Man) 0 Monocytes % (Manual) 8.0 H Eosinophils % (Manual) 0 Basophils % (Manual) 0 Metamyelocytes % 1.0 Myelocytes % 0 Promyelocytes % 0 Blast Cells % 0 Nucleated RBC % 4.0 H Seg Neutrophils # Man 11.2 H Band Neutrophils # 0.0 Lymphocytes # (Manual) 0.8 L Abs React Lymphs (Man) 0.0 Monocytes # (Manual) 1.1 H Eosinophils # (Manual) 0.0 Basophils # (Manual) 0.0 Metamyelocytes # 0.1 Myelocytes # 0.0 Promyelocytes # 0.0 Blast Cells # 0.0 WBC Morphology Not Reportable Hypersegmented Neuts Not Reportable Hyposegmented Neuts Not Reportable Hypogranular Neuts Not Reportable Smudge Cells Not Reportable Toxic Granulation Not Reportable Toxic Vacuolation Not Reportable Dohle Bodies Not Reportable Pelger-Huet Anomaly Not Reportable [place] Rods Not Reportable Platelet Estimate Consistent w auto Clumped Platelets Not Reportable Plt Clumps, EDTA Not Reportable Large Platelets Not Reportable Giant Platelets Not Reportable Platelet Satelliting Not Reportable Plt Morphology Comment Not Reportable RBC Morphology Not Reportable Dimorphic RBCs Not Reportable Polychromasia 1+ Hypochromasia Not Reportable Poikilocytosis Not Reportable Anisocytosis 1+ Microcytosis Not Reportable Macrocytosis Not Reportable Spherocytes Not Reportable Pappenheimer Bodies Not Reportable Sickle Cells Not Reportable Target Cells Not Reportable Tear Drop Cells Not Reportable Ovalocytes Not Reportable Helmet Cells Not Reportable [place] Bodies Not Reportable [place] Rings Not Reportable [place] Cells Not Reportable Bite Cells Not Reportable Crenated Cell Not Reportable Elliptocytes Not Reportable Acanthocytes (Spur) Not Reportable Rouleaux Not Reportable Hemoglobin C Crystals Not Reportable Schistocytes Few Malaria parasites Not Reportable Daljit Bodies Not Reportable Hem Pathologist Commnt No PT INR Sodium 139 D Potassium 3.4 L Chloride 107.0 Carbon Dioxide 20 L Anion Gap 15 BUN 42 H Creatinine 0.9 Estimated GFR > 60 BUN/Creatinine Ratio 46.66 Glucose 101 H POC Glucose Calcium 6.8 L Total Bilirubin 21.1 H Direct Bilirubin 17.9 H Indirect Bilirubin 3.2 AST 54 H ALT 35 Alkaline Phosphatase 183 H Ammonia 44.0 Total Protein 3.8 L Albumin 1.5 L Albumin/Globulin Ratio 0.7 CMV IgG Ab CMV IgM Ab Crossmatch 08/30/16 08/30/16 06:00 07:50 WBC RBC Hgb Hct MCV MCH MCHC RDW Plt Count Add Manual Diff Total Counted Seg Neuts % (Manual) Band Neutrophils % Lymphocytes % (Manual) Reactive Lymphs % (Man) Monocytes % (Manual) Eosinophils % (Manual) Basophils % (Manual) Metamyelocytes % Myelocytes % Promyelocytes % Blast Cells % Nucleated RBC % Seg Neutrophils # Man Band Neutrophils # Lymphocytes # (Manual) Abs React Lymphs (Man) Monocytes # (Manual) Eosinophils # (Manual) Basophils # (Manual) Metamyelocytes # Myelocytes # Promyelocytes # Blast Cells # WBC Morphology Hypersegmented Neuts Hyposegmented Neuts Hypogranular Neuts Smudge Cells Toxic Granulation Toxic Vacuolation Dohle Bodies Pelger-Huet Anomaly [place] Rods Platelet Estimate Clumped Platelets Plt Clumps, EDTA Large Platelets Giant Platelets Platelet Satelliting Plt Morphology Comment RBC Morphology Dimorphic RBCs Polychromasia Hypochromasia Poikilocytosis Anisocytosis Microcytosis Macrocytosis Spherocytes Pappenheimer Bodies Sickle Cells Target Cells Tear Drop Cells Ovalocytes Helmet Cells [place] Bodies [place] Rings [place] Cells Bite Cells Crenated Cell Elliptocytes Acanthocytes (Spur) Rouleaux Hemoglobin C Crystals Schistocytes Malaria parasites Daljit Bodies Hem Pathologist Commnt PT 16.1 H INR 1.30 H Sodium Potassium Chloride Carbon Dioxide Anion Gap BUN Creatinine Estimated GFR BUN/Creatinine Ratio Glucose POC Glucose 128 H Calcium Total Bilirubin Direct Bilirubin Indirect Bilirubin AST ALT Alkaline Phosphatase Ammonia Total Protein Albumin Albumin/Globulin Ratio CMV IgG Ab CMV IgM Ab Crossmatch
--- NOTE | 2016-08-30 09:55 | Hem/Onc Progress Note ---
Assessment and Plan - Patient Problems (1) HELLP (hemolytic anemia/elev liver enzymes/low platelets in ) Current Visit: Yes Status: Acute Plan to address problem: Overall much improved. Mentally clear and stable. No fevers. Smear does not many schistocytes. No bleeding. Monitor off platelets. GI/ hepatology input appreciated. d/w nursing. Subjective Date of service: 08/30/16 Interval history: Patient feels better. Ate yesterday and today. No bleeding. More awake. Objective - Constitutional Vitals: Last Vital Signs Temp 97.6 F 08/30/16 07:58 Pulse 73 08/30/16 09:30 Resp 21 08/30/16 09:30 BP 122/63 08/30/16 09:30 Pulse Ox 97 08/30/16 09:30 Pain Intensity (0-10): denies any pain General appearance: no acute distress - EENT Eyes: PERRL ENT: hearing intact Lymph node exam: negative supraclavicular, negative axillary - Neck Neck: supple, normal ROM - Respiratory Respiratory effort: Positive: normal Respiratory: bilateral: CTA - Cardiovascular Rhythm: regular - Gastrointestinal General gastrointestinal: Present: soft, non-tender - Musculoskeletal Musculoskeletal: strength equal bilaterally - Neurologic Neurologic: CNII-XII intact - Psychiatric Psychiatric: appropriate mood/affect - Labs Lab Results: Laboratory Results - last 24 hr 08/22/16 08/27/16 08/29/16 18:34 08:20 11:50 WBC RBC Hgb Hct MCV MCH MCHC RDW Plt Count Add Manual Diff Total Counted Seg Neuts % (Manual) Band Neutrophils % Lymphocytes % (Manual) Reactive Lymphs % (Man) Monocytes % (Manual) Eosinophils % (Manual) Basophils % (Manual) Metamyelocytes % Myelocytes % Promyelocytes % Blast Cells % Nucleated RBC % Seg Neutrophils # Man Band Neutrophils # Lymphocytes # (Manual) Abs React Lymphs (Man) Monocytes # (Manual) Eosinophils # (Manual) Basophils # (Manual) Metamyelocytes # Myelocytes # Promyelocytes # Blast Cells # WBC Morphology Hypersegmented Neuts Hyposegmented Neuts Hypogranular Neuts Smudge Cells Toxic Granulation Toxic Vacuolation Dohle Bodies Pelger-Huet Anomaly [place]a Rods Platelet Estimate Clumped Platelets Plt Clumps, EDTA Large Platelets Giant Platelets Platelet Satelliting Plt Morphology Comment RBC Morphology Dimorphic RBCs Polychromasia Hypochromasia Poikilocytosis Anisocytosis Microcytosis Macrocytosis Spherocytes Pappenheimer Bodies Sickle Cells Target Cells Tear Drop Cells Ovalocytes Helmet Cells [place] Bodies Labelle Rings [place]my[place] Cells Bite Cells Crenated Cell Elliptocytes Acanthocytes (Spur) Rouleaux Hemoglobin C Crystals Schistocytes Malaria parasites Daljit Bodies Hem Pathologist Commnt PT INR Sodium Potassium Chloride Carbon Dioxide Anion Gap BUN Creatinine Estimated GFR BUN/Creatinine Ratio Glucose POC Glucose 155 H Calcium Total Bilirubin Direct Bilirubin Indirect Bilirubin AST ALT Alkaline Phosphatase Ammonia Total Protein Albumin Albumin/Globulin Ratio CMV IgG Ab 2.92 H CMV IgM Ab <0.2 Crossmatch See Detail 08/29/16 08/29/16 08/29/16 15:35 18:05 21:01 WBC RBC Hgb Hct MCV MCH MCHC RDW Plt Count Add Manual Diff Total Counted Seg Neuts % (Manual) Band Neutrophils % Lymphocytes % (Manual) Reactive Lymphs % (Man) Monocytes % (Manual) Eosinophils % (Manual) Basophils % (Manual) Metamyelocytes % Myelocytes % Promyelocytes % Blast Cells % Nucleated RBC % Seg Neutrophils # Man Band Neutrophils # Lymphocytes # (Manual) Abs React Lymphs (Man) Monocytes # (Manual) Eosinophils # (Manual) Basophils # (Manual) Metamyelocytes # Myelocytes # Promyelocytes # Blast Cells # WBC Morphology Hypersegmented Neuts Hyposegmented Neuts Hypogranular Neuts Smudge Cells Toxic Granulation Toxic Vacuolation Dohle Bodies Pelger-Huet Anomaly [place] Rods Platelet Estimate Clumped Platelets Plt Clumps, EDTA Large Platelets Giant Platelets Platelet Satelliting Plt Morphology Comment RBC Morphology Dimorphic RBCs Polychromasia Hypochromasia Poikilocytosis Anisocytosis Microcytosis Macrocytosis Spherocytes Pappenheimer Bodies Sickle Cells Target Cells Tear Drop Cells Ovalocytes Helmet Cells [place] Bodies Labelle Rings Ida Cells Bite Cells Crenated Cell Elliptocytes Acanthocytes (Spur) Rouleaux Hemoglobin C Crystals Schistocytes Malaria parasites Daljit Bodies Hem Pathologist Commnt PT INR Sodium Potassium Chloride Carbon Dioxide Anion Gap BUN Creatinine Estimated GFR BUN/Creatinine Ratio Glucose POC Glucose 130 H 148 H 138 H Calcium Total Bilirubin Direct Bilirubin Indirect Bilirubin AST ALT Alkaline Phosphatase Ammonia Total Protein Albumin Albumin/Globulin Ratio CMV IgG Ab CMV IgM Ab Crossmatch 08/30/16 08/30/16 08/30/16 04:00 05:40 06:00 WBC 13.2 H RBC 2.20 L Hgb 6.9 L Hct 21.0 L MCV 96 D MCH 31 MCHC 33 RDW 16.7 H Plt Count 42 L Add Manual Diff Complete Total Counted 100 Seg Neuts % (Manual) 85.0 H Band Neutrophils % 0 Lymphocytes % (Manual) 6.0 L Reactive Lymphs % (Man) 0 Monocytes % (Manual) 8.0 H Eosinophils % (Manual) 0 Basophils % (Manual) 0 Metamyelocytes % 1.0 Myelocytes % 0 Promyelocytes % 0 Blast Cells % 0 Nucleated RBC % 4.0 H Seg Neutrophils # Man 11.2 H Band Neutrophils # 0.0 Lymphocytes # (Manual) 0.8 L Abs React Lymphs (Man) 0.0 Monocytes # (Manual) 1.1 H Eosinophils # (Manual) 0.0 Basophils # (Manual) 0.0 Metamyelocytes # 0.1 Myelocytes # 0.0 Promyelocytes # 0.0 Blast Cells # 0.0 WBC Morphology Not Reportable Hypersegmented Neuts Not Reportable Hyposegmented Neuts Not Reportable Hypogranular Neuts Not Reportable Smudge Cells Not Reportable Toxic Granulation Not Reportable Toxic Vacuolation Not Reportable Dohle Bodies Not Reportable Pelger-Huet Anomaly Not Reportable [place]a Rods Not Reportable Platelet Estimate Consistent w auto Clumped Platelets Not Reportable Plt Clumps, EDTA Not Reportable Large Platelets Not Reportable Giant Platelets Not Reportable Platelet Satelliting Not Reportable Plt Morphology Comment Not Reportable RBC Morphology Not Reportable Dimorphic RBCs Not Reportable Polychromasia 1+ Hypochromasia Not Reportable Poikilocytosis Not Reportable Anisocytosis 1+ Microcytosis Not Reportable Macrocytosis Not Reportable Spherocytes Not Reportable Pappenheimer Bodies Not Reportable Sickle Cells Not Reportable Target Cells Not Reportable Tear Drop Cells Not Reportable Ovalocytes Not Reportable Helmet Cells Not Reportable [place] Bodies Not Reportable Labelle Rings Not Reportable [place] Cells Not Reportable Bite Cells Not Reportable Crenated Cell Not Reportable Elliptocytes Not Reportable Acanthocytes (Spur) Not Reportable Rouleaux Not Reportable Hemoglobin C Crystals Not Reportable Schistocytes Few Malaria parasites Not Reportable Daljit Bodies Not Reportable Hem Pathologist Commnt No PT INR Sodium 139 D Potassium 3.4 L Chloride 107.0 Carbon Dioxide 20 L Anion Gap 15 BUN 42 H Creatinine 0.9 Estimated GFR > 60 BUN/Creatinine Ratio 46.66 Glucose 101 H POC Glucose Calcium 6.8 L Total Bilirubin 21.1 H Direct Bilirubin 17.9 H Indirect Bilirubin 3.2 AST 54 H ALT 35 Alkaline Phosphatase 183 H Ammonia 44.0 Total Protein 3.8 L Albumin 1.5 L Albumin/Globulin Ratio 0.7 CMV IgG Ab CMV IgM Ab Crossmatch 08/30/16 08/30/16 06:00 07:50 WBC RBC Hgb Hct MCV MCH MCHC RDW Plt Count Add Manual Diff Total Counted Seg Neuts % (Manual) Band Neutrophils % Lymphocytes % (Manual) Reactive Lymphs % (Man) Monocytes % (Manual) Eosinophils % (Manual) Basophils % (Manual) Metamyelocytes % Myelocytes % Promyelocytes % Blast Cells % Nucleated RBC % Seg Neutrophils # Man Band Neutrophils # Lymphocytes # (Manual) Abs React Lymphs (Man) Monocytes # (Manual) Eosinophils # (Manual) Basophils # (Manual) Metamyelocytes # Myelocytes # Promyelocytes # Blast Cells # WBC Morphology Hypersegmented Neuts Hyposegmented Neuts Hypogranular Neuts Smudge Cells Toxic Granulation Toxic Vacuolation Dohle Bodies Pelger-Huet Anomaly [place]a Rods Platelet Estimate Clumped Platelets Plt Clumps, EDTA Large Platelets Giant Platelets Platelet Satelliting Plt Morphology Comment RBC Morphology Dimorphic RBCs Polychromasia Hypochromasia Poikilocytosis Anisocytosis Microcytosis Macrocytosis Spherocytes Pappenheimer Bodies Sickle Cells Target Cells Tear Drop Cells Ovalocytes Helmet Cells [place] Bodies Labelle Rings Ida Cells Bite Cells Crenated Cell Elliptocytes Acanthocytes (Spur) Rouleaux Hemoglobin C Crystals Schistocytes Malaria parasites Daljit Bodies Hem Pathologist Commnt PT 16.1 H INR 1.30 H Sodium Potassium Chloride Carbon Dioxide Anion Gap BUN Creatinine Estimated GFR BUN/Creatinine Ratio Glucose POC Glucose 128 H Calcium Total Bilirubin Direct Bilirubin Indirect Bilirubin AST ALT Alkaline Phosphatase Ammonia Total Protein Albumin Albumin/Globulin Ratio CMV IgG Ab CMV IgM Ab Crossmatch
--- NOTE | 2016-08-30 10:21 | Progress Note ---
Assessment and Plan A: POD #8 s/p primary section, suspected acute fatty liver of , Anemia s/p 4 u prbs, Coagulopathy,Thrombocytopenia s/p 2 u FFP; Leukocytosis- undetermined etiology, improving. Currently being followed by Pulmonology, Hematology, ID & GI. P: Continue supportive care. Subjective - Subjective Date of service: 08/30/16 Principal diagnosis: Thrombocytopenia,Jaundice HELLP syndrome- resolving, status post Interval history: Pt tolerated rice and a small piece of meat yesterday without nausea or vomiting. She reports passing some flatus but no bowel movement. Her family continues to ask "when will she be back to normal?" Patient reports: pain well controlled, flatus, no appetite normal (though increasing ), no voiding normally (conteh in place ), no bowel movement, no ambulating normally (SCDs in place ), no nauseated : transported Objective - Vital Signs Latest vital signs: Vital Signs Temp Pulse Pulse Pulse Resp BP Pulse Ox 08/30/16 09:30 73 21 122/63 97 08/30/16 09:00 73 20 122/63 98 08/30/16 08:30 67 14 112/63 99 08/30/16 08:00 72 69 68 16 112/63 98 08/30/16 07:58 97.6 F 08/30/16 07:30 66 13 113/59 98 08/30/16 07:00 71 20 106/52 99 08/30/16 06:48 65 17 106/52 96 08/30/16 06:30 68 15 106/52 98 08/30/16 06:15 76 21 106/52 98 08/30/16 06:00 68 16 106/52 98 08/30/16 05:30 70 13 106/52 96 08/30/16 05:00 73 73 15 106/52 96 08/30/16 04:30 81 22 107/49 100 08/30/16 04:00 99.0 F 70 17 107/49 97 08/30/16 03:30 72 16 106/49 97 08/30/16 03:24 69 14 106/49 97 08/30/16 03:00 69 18 106/49 98 08/30/16 02:30 77 22 98/46 97 08/30/16 02:24 68 15 98/46 98 08/30/16 02:00 69 13 98/46 98 08/30/16 01:30 67 14 104/51 96 08/30/16 01:00 68 16 104/51 96 08/30/16 00:30 67 14 105/50 97 08/30/16 00:00 69 69 17 105/50 96 08/29/16 23:56 98.9 F 08/29/16 23:30 68 13 105/53 98 08/29/16 23:00 72 15 105/53 96 08/29/16 22:30 71 17 130/64 95 08/29/16 22:00 77 19 130/64 96 08/29/16 21:55 72 128/63 08/29/16 21:30 71 21 115/60 96 08/29/16 21:00 69 13 120/69 96 08/29/16 20:30 68 16 115/60 96 08/29/16 20:07 97 08/29/16 20:00 68 68 16 115/60 96 08/29/16 19:41 98.7 F 08/29/16 19:30 69 20 109/62 97 08/29/16 19:10 68 13 109/62 97 08/29/16 19:00 67 12 109/62 97 08/29/16 18:30 62 13 111/61 98 08/29/16 18:00 67 18 111/61 98 08/29/16 17:30 74 19 115/54 96 08/29/16 17:10 73 18 115/54 95 08/29/16 17:00 62 18 113/56 97 08/29/16 16:30 70 18 115/54 96 08/29/16 16:00 68 21 115/54 96 08/29/16 15:57 98.2 F 08/29/16 15:48 70 18 106/52 96 08/29/16 15:30 61 16 106/52 95 08/29/16 15:06 72 17 106/52 95 08/29/16 15:00 67 17 106/52 95 08/29/16 14:30 70 16 105/51 96 08/29/16 14:00 62 20 105/51 96 08/29/16 13:30 67 12 118/63 95 08/29/16 13:00 72 18 118/63 95 08/29/16 12:30 72 16 113/53 94 08/29/16 12:22 66 15 113/53 94 08/29/16 12:00 67 18 113/53 93 08/29/16 11:30 66 17 111/57 99 08/29/16 11:04 66 12 111/57 100 08/29/16 11:00 66 12 111/57 100 08/29/16 10:30 65 14 134/65 99 Intake and Output 08/29/16 08/30/16 08/30/16 22:59 06:59 14:59 Intake Total 1117 813 150 Output Total 1450 640 Balance -333 173 150 Intake: IV 767 633 150 D5w 1,000 ml @ 50 mls/hr 350 300 150 IV DIRECT [facility] Rx#: [id number] Vancomycin Vial 1,250 mg 167 333 In NaCl 0.9% 250Ml 250 ml @ 166.667 mls/hr IV Q8HR [facility] Rx#:[id number] NaCl 0.9% 500 ml 500 ml 250 As .ROUTE .STK-MED ONE Rx #:[id number] Oral 350 180 Output: Urine 1450 640 Indwelling Catheter 1450 640 Other: Total, Intake Amount 120 60 Total, Output Amount 300 250 Voiding Method Indwelling Catheter Indwelling Catheter Indwelling Catheter # Bowel Movements 0 - Exam Breasts: Present: deferred Cardiovascular: Present: Regular rate Lungs: Present: Clear to auscultation Abdomen: Present: soft, abnormal bowel sounds (hypoactive, but improved since yesterday ) Extremities: Present: edema Incision: Present: intact - Labs Labs: Abnormal lab results 08/22/16 08/27/16 08/29/16 Range/Units 18:34 08:20 11:50 WBC (4.5-11.0) K/mm3 RBC (3.65-5.03) M/mm3 Hgb (10.1-14.3) gm/dl Hct (30.3-42.9) % RDW (13.2-15.2) % Plt Count (140-440) K/mm3 Seg Neuts % (Manual) (40.0-70.0) % Lymphocytes % (Manual) (13.4-35.0) % Monocytes % (Manual) (0.0-7.3) % Nucleated RBC % (0.0-0.9) % Seg Neutrophils # Man (1.8-7.7) K/mm3 Lymphocytes # (Manual) (1.2-5.4) K/mm3 Monocytes # (Manual) (0.0-0.8) K/mm3 PT (12.2-14.9) Sec. INR (0.87-1.13) Potassium (3.6-5.0) mmol/L Carbon Dioxide (22-30) mmol/L BUN (7-17) mg/dL Glucose (65-100) mg/dL POC Glucose 155 H (70-105) Calcium (8.4-10.2) mg/dL Total Bilirubin (0.1-1.2) mg/dL Direct Bilirubin (0-0.2) mg/dL AST (5-40) units/L Alkaline Phosphatase (35-129) units/L Total Protein (6.3-8.2) g/dL Albumin (3.9-5) g/dL CMV IgG Ab 2.92 H (<=0.90) Crossmatch See Detail 08/29/16 08/29/16 08/29/16 Range/Units 15:35 18:05 21:01 WBC (4.5-11.0) K/mm3 RBC (3.65-5.03) M/mm3 Hgb (10.1-14.3) gm/dl Hct (30.3-42.9) % RDW (13.2-15.2) % Plt Count (140-440) K/mm3 Seg Neuts % (Manual) (40.0-70.0) % Lymphocytes % (Manual) (13.4-35.0) % Monocytes % (Manual) (0.0-7.3) % Nucleated RBC % (0.0-0.9) % Seg Neutrophils # Man (1.8-7.7) K/mm3 Lymphocytes # (Manual) (1.2-5.4) K/mm3 Monocytes # (Manual) (0.0-0.8) K/mm3 PT (12.2-14.9) Sec. INR (0.87-1.13) Potassium (3.6-5.0) mmol/L Carbon Dioxide (22-30) mmol/L BUN (7-17) mg/dL Glucose (65-100) mg/dL POC Glucose 130 H 148 H 138 H (70-105) Calcium (8.4-10.2) mg/dL Total Bilirubin (0.1-1.2) mg/dL Direct Bilirubin (0-0.2) mg/dL AST (5-40) units/L Alkaline Phosphatase (35-129) units/L Total Protein (6.3-8.2) g/dL Albumin (3.9-5) g/dL CMV IgG Ab (<=0.90) Crossmatch 08/30/16 08/30/16 08/30/16 Range/Units 04:00 06:00 06:00 WBC 13.2 H (4.5-11.0) K/mm3 RBC 2.20 L (3.65-5.03) M/mm3 Hgb 6.9 L (10.1-14.3) gm/dl Hct 21.0 L (30.3-42.9) % RDW 16.7 H (13.2-15.2) % Plt Count 42 L (140-440) K/mm3 Seg Neuts % (Manual) 85.0 H (40.0-70.0) % Lymphocytes % (Manual) 6.0 L (13.4-35.0) % Monocytes % (Manual) 8.0 H (0.0-7.3) % Nucleated RBC % 4.0 H (0.0-0.9) % Seg Neutrophils # Man 11.2 H (1.8-7.7) K/mm3 Lymphocytes # (Manual) 0.8 L (1.2-5.4) K/mm3 Monocytes # (Manual) 1.1 H (0.0-0.8) K/mm3 PT 16.1 H (12.2-14.9) Sec. INR 1.30 H (0.87-1.13) Potassium 3.4 L (3.6-5.0) mmol/L Carbon Dioxide 20 L (22-30) mmol/L BUN 42 H (7-17) mg/dL Glucose 101 H (65-100) mg/dL POC Glucose (70-105) Calcium 6.8 L (8.4-10.2) mg/dL Total Bilirubin 21.1 H (0.1-1.2) mg/dL Direct Bilirubin 17.9 H (0-0.2) mg/dL AST 54 H (5-40) units/L Alkaline Phosphatase 183 H (35-129) units/L Total Protein 3.8 L (6.3-8.2) g/dL Albumin 1.5 L (3.9-5) g/dL CMV IgG Ab (<=0.90) Crossmatch 08/30/16 Range/Units 07:50 WBC (4.5-11.0) K/mm3 RBC (3.65-5.03) M/mm3 Hgb (10.1-14.3) gm/dl Hct (30.3-42.9) % RDW (13.2-15.2) % Plt Count (140-440) K/mm3 Seg Neuts % (Manual) (40.0-70.0) % Lymphocytes % (Manual) (13.4-35.0) % Monocytes % (Manual) (0.0-7.3) % Nucleated RBC % (0.0-0.9) % Seg Neutrophils # Man (1.8-7.7) K/mm3 Lymphocytes # (Manual) (1.2-5.4) K/mm3 Monocytes # (Manual) (0.0-0.8) K/mm3 PT (12.2-14.9) Sec. INR (0.87-1.13) Potassium (3.6-5.0) mmol/L Carbon Dioxide (22-30) mmol/L BUN (7-17) mg/dL Glucose (65-100) mg/dL POC Glucose 128 H (70-105) Calcium (8.4-10.2) mg/dL Total Bilirubin (0.1-1.2) mg/dL Direct Bilirubin (0-0.2) mg/dL AST (5-40) units/L Alkaline Phosphatase (35-129) units/L Total Protein (6.3-8.2) g/dL Albumin (3.9-5) g/dL CMV IgG Ab (<=0.90) Crossmatch
[2016-08-30] MEDS: NORMODYNE PO SCH ×2 (11:09→22:24)
[2016-08-30] MEDS: LEVAQUIN 750MG/150ML 150 ML IV SCH (11:10)
--- NOTE | 2016-08-30 11:50 | Progress Note ---
Assessment and Plan - Patient Problems (1) HELLP (hemolytic anemia/elev liver enzymes/low platelets in ) Current Visit: Yes Status: Acute Plan to address problem: Appears to be improving slowly. T. bili is improving. INR stable. Renal function improving. Mental status is clear. Plt count still low. I spoke informally to the [place] transplant physician office secretary yesterday who concurs that her prognosis is reasonably good to avoid the need for transplantation and full recovery is likely. Would avoid any potentially hepatotoxic meds and avoid NSAIDs, narcotics and acetominophen. Would consider transfer to floor if stable over night. Subjective Date of service: 08/30/16 Principal diagnosis: Thrombocytopenia,Jaundice HELLP syndrome- resolving, status post Interval history: She feels better today. Denies any pain. Objective - Constitutional Vitals: Vital Signs - 12hr 08/29/16 08/30/16 08/30/16 23:56 00:00 00:30 Temperature 98.9 F Pulse Rate 69 67 Pulse Rate [ 69 From Monitor] Pulse Rate [ Left Radial] Respiratory 17 14 Rate Blood Pressure 105/50 105/50 O2 Sat by Pulse 96 97 Oximetry 08/30/16 08/30/16 08/30/16 01:00 01:30 02:00 Temperature Pulse Rate 68 67 69 Pulse Rate [ From Monitor] Pulse Rate [ Left Radial] Respiratory 16 14 13 Rate Blood Pressure 104/51 104/51 98/46 O2 Sat by Pulse 96 96 98 Oximetry 08/30/16 08/30/16 08/30/16 02:24 02:30 03:00 Temperature Pulse Rate 68 77 69 Pulse Rate [ From Monitor] Pulse Rate [ Left Radial] Respiratory 15 22 18 Rate Blood Pressure 98/46 98/46 106/49 O2 Sat by Pulse 98 97 98 Oximetry 08/30/16 08/30/16 08/30/16 03:24 03:30 04:00 Temperature 99.0 F Pulse Rate 69 72 70 Pulse Rate [ From Monitor] Pulse Rate [ Left Radial] Respiratory 14 16 17 Rate Blood Pressure 106/49 106/49 107/49 O2 Sat by Pulse 97 97 97 Oximetry 08/30/16 08/30/16 08/30/16 04:30 05:00 05:30 Temperature Pulse Rate 81 73 70 Pulse Rate [ 73 From Monitor] Pulse Rate [ Left Radial] Respiratory 22 15 13 Rate Blood Pressure 107/49 106/52 106/52 O2 Sat by Pulse 100 96 96 Oximetry 08/30/16 08/30/16 08/30/16 06:00 06:15 06:30 Temperature Pulse Rate 68 76 68 Pulse Rate [ From Monitor] Pulse Rate [ Left Radial] Respiratory 16 21 15 Rate Blood Pressure 106/52 106/52 106/52 O2 Sat by Pulse 98 98 98 Oximetry 08/30/16 08/30/16 08/30/16 06:48 07:00 07:30 Temperature Pulse Rate 65 71 66 Pulse Rate [ From Monitor] Pulse Rate [ Left Radial] Respiratory 17 20 13 Rate Blood Pressure 106/52 106/52 113/59 O2 Sat by Pulse 96 99 98 Oximetry 08/30/16 08/30/16 08/30/16 07:58 08:00 08:30 Temperature 97.6 F Pulse Rate 72 67 Pulse Rate [ 69 From Monitor] Pulse Rate [ 68 Left Radial] Respiratory 16 14 Rate Blood Pressure 112/63 112/63 O2 Sat by Pulse 98 99 Oximetry 08/30/16 08/30/16 08/30/16 09:00 09:30 10:00 Temperature Pulse Rate 73 73 74 Pulse Rate [ From Monitor] Pulse Rate [ Left Radial] Respiratory 20 21 Rate Blood Pressure 122/63 122/63 O2 Sat by Pulse 98 97 Oximetry 08/30/16 11:09 Temperature Pulse Rate 71 Pulse Rate [ From Monitor] Pulse Rate [ Left Radial] Respiratory Rate Blood Pressure 117/66 O2 Sat by Pulse Oximetry General appearance: Present: no acute distress - EENT Eyes: PERRL, EOM intact ENT: hearing intact, clear oral mucosa Ears: bilateral: normal - Respiratory Respiratory effort: normal Respiratory: bilateral: CTA - Cardiovascular Rhythm: regular Heart Sounds: Present: S1 & S2. Absent: gallop, rub - Gastrointestinal General gastrointestinal: Present: soft, non-tender, non-distended, normal bowel sounds - Musculoskeletal Musculoskeletal: 1, strength equal bilaterally - Neurologic Neurologic: CNII-XII intact, no focal deficits, moves all extremities - Psychiatric Psychiatric: memory intact, appropriate mood/affect, intact judgment & insight - Labs CBC & Chem 7: 08/30/16 06:00 08/30/16 04:00 Labs: Abnormal lab results 08/22/16 08/27/16 08/29/16 Range/Units 18:34 08:20 11:50 WBC (4.5-11.0) K/mm3 RBC (3.65-5.03) M/mm3 Hgb (10.1-14.3) gm/dl Hct (30.3-42.9) % RDW (13.2-15.2) % Plt Count (140-440) K/mm3 Seg Neuts % (Manual) (40.0-70.0) % Lymphocytes % (Manual) (13.4-35.0) % Monocytes % (Manual) (0.0-7.3) % Nucleated RBC % (0.0-0.9) % Seg Neutrophils # Man (1.8-7.7) K/mm3 Lymphocytes # (Manual) (1.2-5.4) K/mm3 Monocytes # (Manual) (0.0-0.8) K/mm3 PT (12.2-14.9) Sec. INR (0.87-1.13) Potassium (3.6-5.0) mmol/L Carbon Dioxide (22-30) mmol/L BUN (7-17) mg/dL Glucose (65-100) mg/dL POC Glucose 155 H (70-105) Calcium (8.4-10.2) mg/dL Total Bilirubin (0.1-1.2) mg/dL Direct Bilirubin (0-0.2) mg/dL AST (5-40) units/L Alkaline Phosphatase (35-129) units/L Total Protein (6.3-8.2) g/dL Albumin (3.9-5) g/dL CMV IgG Ab 2.92 H (<=0.90) Crossmatch See Detail 08/29/16 08/29/16 08/29/16 Range/Units 15:35 18:05 21:01 WBC (4.5-11.0) K/mm3 RBC (3.65-5.03) M/mm3 Hgb (10.1-14.3) gm/dl Hct (30.3-42.9) % RDW (13.2-15.2) % Plt Count (140-440) K/mm3 Seg Neuts % (Manual) (40.0-70.0) % Lymphocytes % (Manual) (13.4-35.0) % Monocytes % (Manual) (0.0-7.3) % Nucleated RBC % (0.0-0.9) % Seg Neutrophils # Man (1.8-7.7) K/mm3 Lymphocytes # (Manual) (1.2-5.4) K/mm3 Monocytes # (Manual) (0.0-0.8) K/mm3 PT (12.2-14.9) Sec. INR (0.87-1.13) Potassium (3.6-5.0) mmol/L Carbon Dioxide (22-30) mmol/L BUN (7-17) mg/dL Glucose (65-100) mg/dL POC Glucose 130 H 148 H 138 H (70-105) Calcium (8.4-10.2) mg/dL Total Bilirubin (0.1-1.2) mg/dL Direct Bilirubin (0-0.2) mg/dL AST (5-40) units/L Alkaline Phosphatase (35-129) units/L Total Protein (6.3-8.2) g/dL Albumin (3.9-5) g/dL CMV IgG Ab (<=0.90) Crossmatch 08/30/16 08/30/16 08/30/16 Range/Units 04:00 06:00 06:00 WBC 13.2 H (4.5-11.0) K/mm3 RBC 2.20 L (3.65-5.03) M/mm3 Hgb 6.9 L (10.1-14.3) gm/dl Hct 21.0 L (30.3-42.9) % RDW 16.7 H (13.2-15.2) % Plt Count 42 L (140-440) K/mm3 Seg Neuts % (Manual) 85.0 H (40.0-70.0) % Lymphocytes % (Manual) 6.0 L (13.4-35.0) % Monocytes % (Manual) 8.0 H (0.0-7.3) % Nucleated RBC % 4.0 H (0.0-0.9) % Seg Neutrophils # Man 11.2 H (1.8-7.7) K/mm3 Lymphocytes # (Manual) 0.8 L (1.2-5.4) K/mm3 Monocytes # (Manual) 1.1 H (0.0-0.8) K/mm3 PT 16.1 H (12.2-14.9) Sec. INR 1.30 H (0.87-1.13) Potassium 3.4 L (3.6-5.0) mmol/L Carbon Dioxide 20 L (22-30) mmol/L BUN 42 H (7-17) mg/dL Glucose 101 H (65-100) mg/dL POC Glucose (70-105) Calcium 6.8 L (8.4-10.2) mg/dL Total Bilirubin 21.1 H (0.1-1.2) mg/dL Direct Bilirubin 17.9 H (0-0.2) mg/dL AST 54 H (5-40) units/L Alkaline Phosphatase 183 H (35-129) units/L Total Protein 3.8 L (6.3-8.2) g/dL Albumin 1.5 L (3.9-5) g/dL CMV IgG Ab (<=0.90) Crossmatch 08/30/16 08/30/16 Range/Units 07:50 11:42 WBC (4.5-11.0) K/mm3 RBC (3.65-5.03) M/mm3 Hgb (10.1-14.3) gm/dl Hct (30.3-42.9) % RDW (13.2-15.2) % Plt Count (140-440) K/mm3 Seg Neuts % (Manual) (40.0-70.0) % Lymphocytes % (Manual) (13.4-35.0) % Monocytes % (Manual) (0.0-7.3) % Nucleated RBC % (0.0-0.9) % Seg Neutrophils # Man (1.8-7.7) K/mm3 Lymphocytes # (Manual) (1.2-5.4) K/mm3 Monocytes # (Manual) (0.0-0.8) K/mm3 PT (12.2-14.9) Sec. INR (0.87-1.13) Potassium (3.6-5.0) mmol/L Carbon Dioxide (22-30) mmol/L BUN (7-17) mg/dL Glucose (65-100) mg/dL POC Glucose 128 H 188 H (70-105) Calcium (8.4-10.2) mg/dL Total Bilirubin (0.1-1.2) mg/dL Direct Bilirubin (0-0.2) mg/dL AST (5-40) units/L Alkaline Phosphatase (35-129) units/L Total Protein (6.3-8.2) g/dL Albumin (3.9-5) g/dL CMV IgG Ab (<=0.90) Crossmatch
--- NOTE | 2016-08-30 14:57 | Progress Note ---
Assessment and Plan Assessment and plan: Patient is 41 yo woman who was in her 3rd trimester of presented due to decrease movement, was done. Hospitalist was called for viral illness, which was diagnosis prior to hospitalization. After patient was evaluated by Hospitalist, Dr. Brown, for the viral illness in recovery room after the ; she developed hypotension and jaundice. She was transferred to the ICU under the Intensvist service. Operative note as follows, "Date of operation 08/22/16, Diagnosis #1 Intrauterine gestation at 31+ weeks, # 2 NRFHT, #3 viral infection, #4 BPP 09/11, #5 meconium, Postop diagnosis #1-6 same as above, #7 delivery of viable fetus male operation performed primary low segment transverse , #9 PP hemorrhage, #10 uterine atony, Surgeon :Dr. Melton Anesthesia: General Anesthesiologist: Dr. Mendoza Estimated blood loss 1200 mL, Lindsey catheter to bladder 400 mL clear yellow urine * Acute fatty liver disease of versus HELLP syndrome suspected, baby delivered, bilirubin LFTs improving. Platelets mildly improved, will continue close monitoring. ultrasound showing pericholecystic fluid and wall thickening. Passport Application Examiner input appreciated. No indication for transfer of this time as patient is suspected to make full recovery. She clinically has shown remarkable improvement. * Hypotension: Resolved. Continue gentle IV fluids. TORCH and Parvovirus titers pending. * Hypoglycemia:improved patient now tolerating diet although small on the time of this point * Leukocytosis with sepsis syndrome rule out continues to improve today. No fever. started on Levaquin on empiric IV vancomycin and ID input appreciated * Hyperkalemia: Resolved hypokalemia visits that they will address. * Severe protein calorie malnutrition, present on admission-law clerk input appreciated. We'll attempt to start clear liquid diet if okay with ramp service agent * Acute Kidney injury on CKD likely secodary to vasomotor nephropathy and in the setting of hypotension. Resolved * Acute blood loss anemia- hemoglobin 6.9 today. We'll monitor closely. Transfuse as needed up to 7. Likely secondary to hemolysis initial effect of TRALI appears to have resolved. * Thrombocytopenia -stable pathologist input appreciated * Metabolic encephalopathy -resolved likely was secondary to HEL LP * Hemolytic Anemia with Jaundice as part of the HELLP syndrome hematology oncology following * DVT/GI prophy * Discussed in detail with family at bedside History Interval history: Patient seen and examined. Follow up HELLP Syndrome. Patient remains in the ICU, show some remarkable improvement. Strength appears to be coming back. She is no longer requiring pressors. Urine output continues to be strong. Family visits and then at bedside. No cp, n/v. Imaging, old records, testing, labs, nursing notes reviewed. Hospitalist Physical - Physical exam Narrative exam: VITAL SIGNS: Reviewed. GENERAL: The patient appeared well nourished and normally developed. Vital signs as documented. HEAD: No signs of head trauma. EYES: Pupils are equal. icteric pupils EARS: Hearing grossly intact. MOUTH: Oropharynx is normal. NECK: No adenopathy, no JVD. CHEST: Chest with clear breath sounds bilaterally. No wheezes, rales, or rhonchi. CARDIAC: Regular rate and rhythm. S1 and S2, without murmurs, gallops, or rubs. VASCULAR: Peripheral pulses normal and equal in all extremities. ABDOMEN: Soft, tender in the lower quadrant status post surgical incision pressure dressing in place no other drainage noted. No sign of distention. No rebound or guarding, and no masses palpated. Bowel Sounds normal. MUSCULOSKELETAL: Good range of motion of all major joints. Extremities without clubbing, cyanosis. NEUROLOGIC EXAM: Awake, lethargic and oriented to person, time and place. No focal sensory or strength deficits. Follows simple commands. PSYCHIATRIC: Mood normal. SKIN: Jaundiced. Surgical incision noted no overt drainage. Generalized anasarca. - Constitutional Vitals: Temp Pulse Resp BP Pulse Ox 98.1 F 76 22 113/57 96 08/30/16 11:51 08/30/16 12:30 08/30/16 12:30 08/30/16 12:30 08/30/16 12:30 General appearance: Present: no acute distress Results - Labs CBC & Chem 7: 08/30/16 06:00 08/30/16 04:00 Labs: Laboratory Last Values WBC 13.2 K/mm3 (4.5-11.0) H 08/30/16 06:00 RBC 2.20 M/mm3 (3.65-5.03) L 08/30/16 06:00 Hgb 6.9 gm/dl (10.1-14.3) L 08/30/16 06:00 Hct 21.0 % (30.3-42.9) L 08/30/16 06:00 MCV 96 fl (79-97) D 08/30/16 06:00 MCH 31 pg (28-32) 08/30/16 06:00 MCHC 33 % (30-34) 08/30/16 06:00 RDW 16.7 % (13.2-15.2) H 08/30/16 06:00 Plt Count 42 K/mm3 (140-440) L 08/30/16 06:00 Lymph % (Auto) 14.6 % (13.4-35.0) 08/23/16 05:19 [place] % (Auto) 6.6 % (0.0-7.3) 08/23/16 05:19 Eos % (Auto) 1.2 % (0.0-4.3) 08/23/16 05:19 Baso % (Auto) 0.4 % (0.0-1.8) 08/23/16 05:19 Lymph # Echocardiography Radiology Technologist 08/26/16 04:50 [place] # 1.1 K/mm3 (0.0-0.8) H 08/23/16 05:19 Eos # 0.2 K/mm3 (0.0-0.4) 08/23/16 05:19 Baso # 0.1 K/mm3 (0.0-0.1) 08/23/16 05:19 Add Manual Diff Complete 08/30/16 06:00 Total Counted 100 08/30/16 06:00 Seg Neutrophils % Echocardiography Radiology Technologist 08/28/16 05:30 Seg Neuts % (Manual) 85.0 % (40.0-70.0) H 08/30/16 06:00 Band Neutrophils % 0 % 08/30/16 06:00 Lymphocytes % (Manual) 6.0 % (13.4-35.0) L 08/30/16 06:00 Reactive Lymphs % (Man) 0 % 08/30/16 06:00 Monocytes % (Manual) 8.0 % (0.0-7.3) H 08/30/16 06:00 Eosinophils % (Manual) 0 % (0.0-4.3) 08/30/16 06:00 Basophils % (Manual) 0 % (0.0-1.8) 08/30/16 06:00 Metamyelocytes % 1.0 % 08/30/16 06:00 Myelocytes % 0 % 08/30/16 06:00 Promyelocytes % 0 % 08/30/16 06:00 Blast Cells % 0 % 08/30/16 06:00 Nucleated RBC % 4.0 % (0.0-0.9) H 08/30/16 06:00 Seg Neutrophils # 13.1 K/mm3 (1.8-7.7) H 08/23/16 05:19 Seg Neutrophils # Man 11.2 K/mm3 (1.8-7.7) H 08/30/16 06:00 Band Neutrophils # 0.0 K/mm3 08/30/16 06:00 Lymphocytes # (Manual) 0.8 K/mm3 (1.2-5.4) L 08/30/16 06:00 Abs React Lymphs (Man) 0.0 K/mm3 08/30/16 06:00 Monocytes # (Manual) 1.1 K/mm3 (0.0-0.8) H 08/30/16 06:00 Eosinophils # (Manual) 0.0 K/mm3 (0.0-0.4) 08/30/16 06:00 Basophils # (Manual) 0.0 K/mm3 (0.0-0.1) 08/30/16 06:00 Metamyelocytes # 0.1 K/mm3 08/30/16 06:00 Myelocytes # 0.0 K/mm3 08/30/16 06:00 Promyelocytes # 0.0 K/mm3 08/30/16 06:00 Blast Cells # 0.0 K/mm3 08/30/16 06:00 WBC Morphology Not Reportable 08/30/16 06:00 Hypersegmented Neuts Not Reportable 08/30/16 06:00 Hyposegmented Neuts Not Reportable 08/30/16 06:00 Hypogranular Neuts Not Reportable 08/30/16 06:00 Smudge Cells Not Reportable 08/30/16 06:00 Toxic Granulation Not Reportable 08/30/16 06:00 Toxic Vacuolation Not Reportable 08/30/16 06:00 Dohle Bodies Not Reportable 08/30/16 06:00 Pelger-Huet Anomaly Not Reportable 08/30/16 06:00 Alaina Rods Not Reportable 08/30/16 06:00 Platelet Estimate Consistent w auto 08/30/16 06:00 Clumped Platelets Not Reportable 08/30/16 06:00 Plt Clumps, EDTA Not Reportable 08/30/16 06:00 Large Platelets Not Reportable 08/30/16 06:00 Giant Platelets Not Reportable 08/30/16 06:00 Platelet Satelliting Not Reportable 08/30/16 06:00 Plt Morphology Comment Not Reportable 08/30/16 06:00 RBC Morphology Not Reportable 08/30/16 06:00 Dimorphic RBCs Not Reportable 08/30/16 06:00 Polychromasia 1+ 08/30/16 06:00 Hypochromasia Not Reportable 08/30/16 06:00 Poikilocytosis Not Reportable 08/30/16 06:00 Anisocytosis 1+ 08/30/16 06:00 Microcytosis Not Reportable 08/30/16 06:00 Macrocytosis Not Reportable 08/30/16 06:00 Spherocytes Not Reportable 08/30/16 06:00 Pappenheimer Bodies Not Reportable 08/30/16 06:00 Sickle Cells Not Reportable 08/30/16 06:00 Target Cells Not Reportable 08/30/16 06:00 Tear Drop Cells Not Reportable 08/30/16 06:00 Ovalocytes Not Reportable 08/30/16 06:00 Helmet Cells Not Reportable 08/30/16 06:00 Whittaker-[place] Bodies Not Reportable 08/30/16 06:00 Peck Rings Not Reportable 08/30/16 06:00 Soumya Cells Not Reportable 08/30/16 06:00 Bite Cells Not Reportable 08/30/16 06:00 Crenated Cell Not Reportable 08/30/16 06:00 Elliptocytes Not Reportable 08/30/16 06:00 Acanthocytes (Spur) Not Reportable 08/30/16 06:00 Rouleaux Not Reportable 08/30/16 06:00 Hemoglobin C Crystals Not Reportable 08/30/16 06:00 Schistocytes Few 08/30/16 06:00 Malaria parasites Not Reportable 08/30/16 06:00 Percent Retic 6.59 % (0.78-2.58) H 08/27/16 11:15 Sickle Cell Screen Negative (Negative) 08/22/16 18:48 Daljit Bodies Not Reportable 08/30/16 06:00 Haptoglobin <15 mg/dL (43-212) L 08/27/16 11:15 Hem Pathologist Commnt No 08/30/16 06:00 PT 16.1 Sec. (12.2-14.9) H 08/30/16 06:00 INR 1.30 (0.87-1.13) H 08/30/16 06:00 APTT 42.3 Sec. (24.2-36.6) H 08/25/16 05:45 POC ABG pH 7.479 (7.35-7.45) H 08/24/16 14:12 POC ABG pCO2 29.6 (35-45) L 08/24/16 14:12 POC ABG pO2 62 (80-105) L 08/24/16 14:12 POC ABG HCO3 21.9 08/24/16 14:12 POC ABG Total CO2 23 08/24/16 14:12 POC ABG O2 Sat 93 08/24/16 14:12 POC ABG Base Excess -2 08/24/16 14:12 FiO2 3 % 08/24/16 14:12 Sodium 139 mmol/L (137-145) D 08/30/16 04:00 Potassium 3.4 mmol/L (3.6-5.0) L 08/30/16 04:00 Chloride 107.0 mmol/L (98-107) 08/30/16 04:00 Carbon Dioxide 20 mmol/L (22-30) L 08/30/16 04:00 Anion Gap 15 mmol/L 08/30/16 04:00 BUN 42 mg/dL (7-17) H 08/30/16 04:00 Creatinine 0.9 mg/dL (0.7-1.2) 08/30/16 04:00 Estimated GFR > 60 ml/min 08/30/16 04:00 BUN/Creatinine Ratio 46.66 % 08/30/16 04:00 Glucose 101 mg/dL (65-100) H 08/30/16 04:00 POC Glucose 188 (70-105) H 08/30/16 11:42 Lactic Acid 2.0 mmol/L (0.7-2.0) 08/29/16 04:30 Calcium 6.8 mg/dL (8.4-10.2) L 08/30/16 04:00 Magnesium 4.5 mg/dL (1.7-2.3) H 08/26/16 04:50 Total Bilirubin 21.1 mg/dL (0.1-1.2) H 08/30/16 04:00 Direct Bilirubin 17.9 mg/dL (0-0.2) H 08/30/16 04:00 Indirect Bilirubin 3.2 mg/dL 08/30/16 04:00 AST 54 units/L (5-40) H 08/30/16 04:00 ALT 35 units/L (7-56) 08/30/16 04:00 Alkaline Phosphatase 183 units/L (35-129) H 08/30/16 04:00 Ammonia 44.0 umol/L (25-60) 08/30/16 05:40 Lactate Dehydrogenase 844 units/L (91-180) H 08/27/16 08:40 Total Creatine Kinase 1295 units/L (30-135) H 08/24/16 05:00 NT-Pro-B Natriuret Pep 241.0 pg/mL (0-450) 08/27/16 16:30 Total Protein 3.8 g/dL (6.3-8.2) L 08/30/16 04:00 Albumin 1.5 g/dL (3.9-5) L 08/30/16 04:00 Albumin/Globulin Ratio 0.7 % 08/30/16 04:00 LDL Cholesterol Direct 38 mg/dL (50-130) L 08/23/16 07:50 Vitamin B12 > 2000 pg/mL (211-911) H 08/27/16 11:15 Folate 10.54 ng/mL (7.3-26.0) 08/27/16 11:15 Urine Color [place] (Yellow) 08/27/16 15:20 Urine Turbidity Clear (Clear) 08/27/16 15:20 Urine pH 6.0 (5.0-7.0) 08/27/16 15:20 Ur Specific [place] 1.018 (1.003-1.030) 08/27/16 15:20 Urine Protein 30 mg/dl mg/dL (Negative) 08/27/16 15:20 Urine Glucose (UA) Neg mg/dL (Negative) 08/27/16 15:20 Urine Ketones Neg mg/dL (Negative) 08/27/16 15:20 Urine Blood Mod (Negative) 08/27/16 15:20 Urine Nitrite Neg (Negative) 08/27/16 15:20 Urine Bilirubin Mod (Negative) 08/27/16 15:20 Urine Ictotest Positive (Negative) 08/27/16 15:20 Urine Urobilinogen 4.0 mg/dL (<2.0) 08/27/16 15:20 Ur Leukocyte Esterase Neg (Negative) 08/27/16 15:20 Urine WBC (Auto) 10.0 /HPF (0.0-6.0) H 08/27/16 15:20 Urine RBC (Auto) 7.0 /HPF (0.0-6.0) 08/27/16 15:20 U Epithel Cells (Auto) < 1.0 /HPF (0-13.0) 08/27/16 15:20 Granular Casts 4 /LPF 08/27/16 15:20 Urine Mucus Few /HPF 08/27/16 15:20 Urine Opiates Screen Presumptive negative 08/22/16 18:30 Urine Methadone Screen Presumptive negative 08/22/16 18:30 Ur Barbiturates Screen Presumptive negative 08/22/16 18:30 Ur Phencyclidine Scrn Presumptive negative 08/22/16 18:30 Ur Amphetamines Screen Presumptive negative 08/22/16 18:30 U Benzodiazepines Scrn Presumptive negative 08/22/16 18:30 Urine Cocaine Screen Presumptive negative 08/22/16 18:30 U Marijuana (THC) Screen Presumptive negative 08/22/16 18:30 Drugs of Abuse Note Disclamer 08/22/16 18:30 RPR Nonreactive (Nonreactive) 08/22/16 18:34 CMV IgG Ab 2.92 (<=0.90) H 08/22/16 18:34 CMV IgM Ab <0.2 (()) 08/22/16 18:34 CMV 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/mL See scanned report 08/23/16 13:03 Hepatitis A IgM Ab -1 (NonReactive) 08/27/16 11:15 Hep Bs Antigen Non-reactive (Negative) 08/22/16 18:34 Hepatitis C Antibody Non-reactive (NonReactive) 08/22/16 18:34 Herpes Simplex Source Swab (()) 08/25/16 11:45 HSV I DNA PCR Not detected (Not Detected) 08/25/16 11:45 HSV II DNA PCR Not detected (Not Detected) 08/25/16 11:45 HIV 1&2 Antibody Rapid Non react (Non React) 08/23/16 09:25 HIV P24 Antigen Non react (Non React) 08/23/16 09:25 Rubella IgG Antibody Immune (Immune) 08/22/16 18:34 Rubella IgM Antibody <0.90 (<0.90) 08/22/16 18:34 Schistocytes Smear Rare 08/26/16 04:50 Toxoplasma IgG Ab <=0.90 (<=0.90) 08/22/16 18:34 Toxoplasma IgM Ab Negative (Negative) 08/22/16 18:34 Miscellaneous Test Flexitest 1 (()) H 08/22/16 18:54 Blood Type O NEGATIVE 08/27/16 08:20 Antibody Screen Positive 08/27/16 08:20 Antibody Identification Anti-D (Passively Aquired) 08/27/16 08:20 Direct Antiglob Test Negative 08/27/16 08:20 JYOTI, Poly Interpret Negative 08/27/16 08:20 KB % Cells Negative 08/22/16 Unknown Crossmatch See Detail 08/27/16 08:20 Pre-Trans JYOTI Negative 08/27/16 15:20 Pre-Trans JYOTI Poly Negative 08/27/16 15:20 Post-Trans Blood Type O negative 08/27/16 15:20 Post-Trans JYOTI Negative 08/27/16 15:20 Post-Trans JYOTI Poly Negative 08/27/16 15:20
--- NOTE | 2016-08-30 18:27 | Progress Note ---
Assessment and Plan Imp: 1. HELLP vs. acute fatty liver of 2. Acute respiratory failure, hypoxia, resolved 3. SHAUNA, resolved 4. SIRS 5. Thrombocytopenia, 2/2 liver failure Rec: 1. SCDs 2. Plan per GI; monitoring conservatively for recovery of liver function 3. ABX per ID Plan of care reviewed w/ patient/family, they understand/agree Subjective Date of service: 08/30/16 Principal diagnosis: Thrombocytopenia,Jaundice HELLP syndrome- resolving, status post Interval history: No events. Awake, alert. Eating dinner, tolerating well. No N/V, pain. Active Medications Acetaminophen (Tylenol) 650 mg PO Q4H PRN PRN Reason: Fever >100.5/MARCUS Bisacodyl (Dulcolax) 5 mg PO QHS PRN PRN Reason: Constipation Last Admin: 08/29/16 21:56 Dose: 5 mg Dextrose (D5w) 1,000 mls @ 50 mls/hr IV DIRECT VANESSA Last Admin: 08/29/16 05:22 Dose: 50 mls/hr Vancomycin HCl 1,250 mg/ (Sodium Chloride) 250 mls @ 166.667 mls/hr IV Q8HR VANESSA Last Admin: 08/30/16 05:41 Dose: 166.667 mls/hr Sodium Chloride (Nacl 0.9% 500 Ml) 500 mls @ 50 mls/hr IV DIRECT VANESSA Labetalol HCl (Normodyne) 100 mg PO BID [facility] Last Admin: 08/30/16 11:09 Dose: 100 mg Multi-Ingredient Ointment (Lansinoh) 1 applic TP PRN PRN PRN Reason: dryness/cracking Naloxone HCl (Narcan 0.4 Mg/1 Ml) 0.1 mg IV Q2MIN PRN PRN Reason: Res Rate </= 8 or 02 SAT < 92% Last Admin: 08/23/16 04:45 Dose: 0.1 mg Ondansetron HCl (Zofran) 4 mg IV Q4H PRN PRN Reason: Nausea And Vomiting Last Admin: 08/27/16 19:53 Dose: 4 mg Vancomycin HCl (Vancomycin Pharmacy To Dose) 1 each IV PKCONSULT VANESSA PRN Reason: Protocol Witch Chloe/Glycerin (Tucks Pad) 1 each TP PRN PRN PRN Reason: Hemorrhoids/cleansing/soothing Objective Vital Signs - 12hr 08/30/16 08/30/16 08/30/16 06:30 06:48 07:00 Temperature Pulse Rate 68 65 71 Pulse Rate [ From Monitor] Respiratory 15 17 20 Rate Blood Pressure 106/52 106/52 106/52 O2 Sat by Pulse 98 96 99 Oximetry 08/30/16 08/30/16 08/30/16 07:30 07:58 08:00 Temperature 97.6 F Pulse Rate 66 72 Pulse Rate [ 69 From Monitor] Respiratory 13 16 Rate Blood Pressure 113/59 112/63 O2 Sat by Pulse 98 98 Oximetry 08/30/16 08/30/16 08/30/16 08:30 09:00 09:20 Temperature Pulse Rate 67 73 75 Pulse Rate [ From Monitor] Respiratory 14 20 18 Rate Blood Pressure 112/63 122/63 122/63 O2 Sat by Pulse 99 98 98 Oximetry 08/30/16 08/30/16 08/30/16 09:30 09:32 10:00 Temperature Pulse Rate 73 73 75 Pulse Rate [ From Monitor] Respiratory 21 19 21 Rate Blood Pressure 122/63 122/63 119/62 O2 Sat by Pulse 97 97 98 Oximetry 08/30/16 08/30/16 08/30/16 10:30 11:00 11:09 Temperature Pulse Rate 75 75 71 Pulse Rate [ From Monitor] Respiratory 18 21 Rate Blood Pressure 119/62 117/66 117/66 O2 Sat by Pulse 96 98 Oximetry 08/30/16 08/30/16 08/30/16 11:30 11:51 12:00 Temperature 98.1 F Pulse Rate 88 76 Pulse Rate [ 71 From Monitor] Respiratory 17 22 Rate Blood Pressure 117/66 113/57 O2 Sat by Pulse 98 94 Oximetry 08/30/16 08/30/16 12:30 16:00 Temperature 97.4 F L Pulse Rate 76 Pulse Rate [ From Monitor] Respiratory 22 Rate Blood Pressure 113/57 O2 Sat by Pulse 96 Oximetry Constitutional: no acute distress, alert, other (sleepy, do responsive and answering questions) Eyes: icteric ENT: oropharynx moist Neck: supple Ascultation: Bilateral: clear, diminished breath sounds Cardiovascular: regular rate and rhythm (no mrg) Gastrointestinal: normoactive bowel sounds, soft, non-tender, non-distended Integumentary: other (jaundice) Extremities: no cyanosis, pink and warm, edema (2+ bilateral LE edema) Neurologic: normal mental status, non-focal exam, pupils equal and round, CN II- XII normal, motor strength normal and Psychiatric: mood appropriate, affect normal CBC and BMP: 08/30/16 06:00 08/30/16 04:00 ABG, PT/INR, D-dimer: ABG POC ABG pH 7.479 (7.35-7.45) H 08/24/16 14:12 POC ABG pCO2 29.6 (35-45) L 08/24/16 14:12 POC ABG pO2 62 (80-105) L 08/24/16 14:12 POC ABG HCO3 21.9 08/24/16 14:12 POC ABG Total CO2 23 08/24/16 14:12 POC ABG O2 Sat 93 08/24/16 14:12 PT/INR, D-dimer PT 16.1 Sec. (12.2-14.9) H 08/30/16 06:00 INR 1.30 (0.87-1.13) H 08/30/16 06:00 Abnormal lab findings: Abnormal Labs 08/22/16 08/22/16 08/22/16 16:00 16:00 17:38 WBC RBC 3.64 L Hgb Hct RDW Plt Count 137 L Lymph % (Auto) 12.3 L [place] # Seg Neutrophils % 81.9 H Seg Neuts % (Manual) Lymphocytes % (Manual) Monocytes % (Manual) Nucleated RBC % Seg Neutrophils # 8.3 H Seg Neutrophils # Man Lymphocytes # (Manual) Monocytes # (Manual) Percent Retic Haptoglobin PT INR APTT POC ABG pH 7.117 L POC ABG pCO2 49.2 H POC ABG pO2 20 L Sodium Potassium Chloride Carbon Dioxide BUN Creatinine Glucose POC Glucose Lactic Acid Calcium Magnesium Total Bilirubin Direct Bilirubin AST ALT Alkaline Phosphatase Ammonia Lactate Dehydrogenase Total Creatine Kinase Total Protein Albumin LDL Cholesterol Direct Vitamin B12 Urine WBC (Auto) CMV IgG Ab Miscellaneous Test Crossmatch See Detail 08/22/16 08/22/16 08/22/16 17:43 18:34 18:48 WBC 13.2 H RBC 3.62 L Hgb Hct RDW Plt Count 115 L Lymph % (Auto) 8.8 L [place] # Seg Neutrophils % 87.0 H Seg Neuts % (Manual) Lymphocytes % (Manual) Monocytes % (Manual) Nucleated RBC % Seg Neutrophils # 11.5 H Seg Neutrophils # Man Lymphocytes # (Manual) Monocytes # (Manual) Percent Retic Haptoglobin PT INR APTT POC ABG pH 7.078 L POC ABG pCO2 POC ABG pO2 25 L Sodium Potassium Chloride Carbon Dioxide BUN Creatinine Glucose POC Glucose Lactic Acid Calcium Magnesium Total Bilirubin Direct Bilirubin AST ALT Alkaline Phosphatase Ammonia Lactate Dehydrogenase Total Creatine Kinase Total Protein Albumin LDL Cholesterol Direct Vitamin B12 Urine WBC (Auto) CMV IgG Ab 2.92 H Miscellaneous Test Crossmatch 08/22/16 08/23/16 08/23/16 18:54 05:19 07:50 WBC 17.0 H RBC 3.16 L Hgb 9.9 L 9.7 L Hct 30.0 L RDW Plt Count 125 L Lymph % (Auto) [place] # 1.1 H Seg Neutrophils % 77.2 H Seg Neuts % (Manual) Lymphocytes % (Manual) Monocytes % (Manual) Nucleated RBC % Seg Neutrophils # 13.1 H Seg Neutrophils # Man Lymphocytes # (Manual) Monocytes # (Manual) Percent Retic Haptoglobin PT INR APTT POC ABG pH POC ABG pCO2 POC ABG pO2 Sodium Potassium Chloride Carbon Dioxide BUN Creatinine Glucose POC Glucose Lactic Acid Calcium Magnesium Total Bilirubin Direct Bilirubin AST ALT Alkaline Phosphatase Ammonia Lactate Dehydrogenase Total Creatine Kinase Total Protein Albumin LDL Cholesterol Direct Vitamin B12 Urine WBC (Auto) CMV IgG Ab Miscellaneous Test Flexitest 1 H Crossmatch 08/23/16 08/23/16 08/23/16 07:50 08:19 08:39 WBC RBC Hgb Hct RDW Plt Count Lymph % (Auto) [place] # Seg Neutrophils % Seg Neuts % (Manual) Lymphocytes % (Manual) Monocytes % (Manual) Nucleated RBC % Seg Neutrophils # Seg Neutrophils # Man Lymphocytes # (Manual) Monocytes # (Manual) Percent Retic Haptoglobin PT 23.7 H INR 2.11 H APTT POC ABG pH POC ABG pCO2 POC ABG pO2 Sodium Potassium 5.9 H Chloride Carbon Dioxide 12 L BUN 18 H Creatinine 3.1 H Glucose 39 L* POC Glucose 52 L Lactic Acid Calcium Magnesium Total Bilirubin 4.3 H Direct Bilirubin 3.9 H AST 676 H ALT 470 H Alkaline Phosphatase 394 H Ammonia Lactate Dehydrogenase Total Creatine Kinase Total Protein 4.3 L Albumin 1.6 L LDL Cholesterol Direct 38 L Vitamin B12 Urine WBC (Auto) CMV IgG Ab Miscellaneous Test Crossmatch 08/23/16 08/23/16 08/23/16 09:00 09:25 11:05 WBC RBC Hgb Hct RDW Plt Count Lymph % (Auto) [place] # Seg Neutrophils % Seg Neuts % (Manual) Lymphocytes % (Manual) Monocytes % (Manual) Nucleated RBC % Seg Neutrophils # Seg Neutrophils # Man Lymphocytes # (Manual) Monocytes # (Manual) Percent Retic Haptoglobin PT INR APTT POC ABG pH POC ABG pCO2 POC ABG pO2 Sodium Potassium Chloride Carbon Dioxide BUN Creatinine Glucose POC Glucose 178 H 134 H Lactic Acid 10.0 H* Calcium Magnesium Total Bilirubin Direct Bilirubin AST ALT Alkaline Phosphatase Ammonia Lactate Dehydrogenase Total Creatine Kinase Total Protein Albumin LDL Cholesterol Direct Vitamin B12 Urine WBC (Auto) CMV IgG Ab Miscellaneous Test Crossmatch 08/23/16 08/23/16 08/23/16 12:02 12:26 12:49 WBC RBC Hgb Hct RDW Plt Count Lymph % (Auto) [place] # Seg Neutrophils % Seg Neuts % (Manual) Lymphocytes % (Manual) Monocytes % (Manual) Nucleated RBC % Seg Neutrophils # Seg Neutrophils # Man Lymphocytes # (Manual) Monocytes # (Manual) Percent Retic Haptoglobin PT INR APTT POC ABG pH POC ABG pCO2 POC ABG pO2 Sodium Potassium 5.5 H Chloride Carbon Dioxide 13 L BUN 19 H Creatinine 3.1 H Glucose 124 H POC Glucose 130 H 145 H Lactic Acid Calcium 8.3 L Magnesium Total Bilirubin 4.4 H Direct Bilirubin AST 521 H ALT 377 H Alkaline Phosphatase 345 H Ammonia Lactate Dehydrogenase Total Creatine Kinase Total Protein 4.6 L Albumin 1.9 L LDL Cholesterol Direct Vitamin B12 Urine WBC (Auto) CMV IgG Ab Miscellaneous Test Crossmatch 08/23/16 08/23/16 08/23/16 15:30 15:30 15:30 WBC RBC Hgb Hct RDW Plt Count Lymph % (Auto) [place] # Seg Neutrophils % Seg Neuts % (Manual) Lymphocytes % (Manual) Monocytes % (Manual) Nucleated RBC % Seg Neutrophils # Seg Neutrophils # Man Lymphocytes # (Manual) Monocytes # (Manual) Percent Retic Haptoglobin PT 21.4 H INR 1.86 H APTT POC ABG pH POC ABG pCO2 POC ABG pO2 Sodium Potassium 5.1 H Chloride Carbon Dioxide BUN Creatinine Glucose POC Glucose Lactic Acid 7.1 H* Calcium Magnesium Total Bilirubin Direct Bilirubin AST ALT Alkaline Phosphatase Ammonia Lactate Dehydrogenase 511 H Total Creatine Kinase Total Protein Albumin LDL Cholesterol Direct Vitamin B12 Urine WBC (Auto) CMV IgG Ab Miscellaneous Test Crossmatch 08/23/16 08/23/16 08/23/16 15:30 15:56 16:19 WBC RBC Hgb Hct RDW Plt Count Lymph % (Auto) [place] # Seg Neutrophils % Seg Neuts % (Manual) Lymphocytes % (Manual) Monocytes % (Manual) Nucleated RBC % Seg Neutrophils # Seg Neutrophils # Man Lymphocytes # (Manual) Monocytes # (Manual) Percent Retic Haptoglobin PT INR APTT POC ABG pH 7.288 L POC ABG pCO2 28.5 L POC ABG pO2 66 L Sodium Potassium Chloride Carbon Dioxide BUN Creatinine Glucose POC Glucose 138 H Lactic Acid Calcium Magnesium Total Bilirubin Direct Bilirubin AST ALT Alkaline Phosphatase Ammonia Lactate Dehydrogenase Total Creatine Kinase 1275 H Total Protein Albumin LDL Cholesterol Direct Vitamin B12 Urine WBC (Auto) CMV IgG Ab Miscellaneous Test Crossmatch 08/23/16 08/23/16 08/23/16 17:30 18:02 20:05 WBC RBC Hgb Hct RDW Plt Count Lymph % (Auto) [place] # Seg Neutrophils % Seg Neuts % (Manual) Lymphocytes % (Manual) Monocytes % (Manual) Nucleated RBC % Seg Neutrophils # Seg Neutrophils # Man Lymphocytes # (Manual) Monocytes # (Manual) Percent Retic Haptoglobin PT INR APTT POC ABG pH POC ABG pCO2 POC ABG pO2 Sodium Potassium Chloride Carbon Dioxide 15 L BUN 19 H Creatinine 2.9 H Glucose 117 H POC Glucose 109 H 123 H Lactic Acid Calcium 7.3 L Magnesium Total Bilirubin 4.9 H Direct Bilirubin AST 369 H ALT 258 H Alkaline Phosphatase 291 H Ammonia Lactate Dehydrogenase Total Creatine Kinase Total Protein 4.3 L Albumin 1.7 L LDL Cholesterol Direct Vitamin B12 Urine WBC (Auto) CMV IgG Ab Miscellaneous Test Crossmatch 08/23/16 08/23/16 08/23/16 20:23 21:50 21:50 WBC RBC Hgb Hct RDW Plt Count Lymph % (Auto) [place] # Seg Neutrophils % Seg Neuts % (Manual) Lymphocytes % (Manual) Monocytes % (Manual) Nucleated RBC % Seg Neutrophils # Seg Neutrophils # Man Lymphocytes # (Manual) Monocytes # (Manual) Percent Retic Haptoglobin PT 22.5 H INR 1.98 H APTT POC ABG pH POC ABG pCO2 POC ABG pO2 Sodium Potassium Chloride Carbon Dioxide BUN Creatinine Glucose POC Glucose 129 H Lactic Acid 4.6 H* Calcium Magnesium Total Bilirubin Direct Bilirubin AST ALT Alkaline Phosphatase Ammonia Lactate Dehydrogenase Total Creatine Kinase Total Protein Albumin LDL Cholesterol Direct Vitamin B12 Urine WBC (Auto) CMV IgG Ab Miscellaneous Test Crossmatch 08/23/16 08/23/16 08/24/16 21:50 22:16 00:13 WBC RBC Hgb Hct RDW Plt Count Lymph % (Auto) [place] # Seg Neutrophils % Seg Neuts % (Manual) Lymphocytes % (Manual) Monocytes % (Manual) Nucleated RBC % Seg Neutrophils # Seg Neutrophils # Man Lymphocytes # (Manual) Monocytes # (Manual) Percent Retic Haptoglobin PT INR APTT POC ABG pH POC ABG pCO2 POC ABG pO2 Sodium Potassium Chloride Carbon Dioxide BUN Creatinine Glucose POC Glucose 134 H 120 H Lactic Acid Calcium Magnesium Total Bilirubin Direct Bilirubin AST ALT Alkaline Phosphatase Ammonia Lactate Dehydrogenase Total Creatine Kinase 1410 H Total Protein Albumin LDL Cholesterol Direct Vitamin B12 Urine WBC (Auto) CMV IgG Ab Miscellaneous Test Crossmatch 08/24/16 08/24/16 08/24/16 01:47 02:37 03:25 WBC RBC Hgb Hct RDW Plt Count Lymph % (Auto) [place] # Seg Neutrophils % Seg Neuts % (Manual) Lymphocytes % (Manual) Monocytes % (Manual) Nucleated RBC % Seg Neutrophils # Seg Neutrophils # Man Lymphocytes # (Manual) Monocytes # (Manual) Percent Retic Haptoglobin PT INR APTT POC ABG pH POC ABG pCO2 POC ABG pO2 Sodium Potassium Chloride Carbon Dioxide BUN Creatinine Glucose POC Glucose 116 H 107 H 108 H Lactic Acid Calcium Magnesium Total Bilirubin Direct Bilirubin AST ALT Alkaline Phosphatase Ammonia Lactate Dehydrogenase Total Creatine Kinase Total Protein Albumin LDL Cholesterol Direct Vitamin B12 Urine WBC (Auto) CMV IgG Ab Miscellaneous Test Crossmatch 08/24/16 08/24/16 08/24/16 04:10 05:00 05:00 WBC 12.7 H RBC 2.18 L Hgb 6.7 L D Hct 20.4 L D RDW Plt Count 102 L Lymph % (Auto) [place] # Seg Neutrophils % Seg Neuts % (Manual) Lymphocytes % (Manual) Monocytes % (Manual) Nucleated RBC % Seg Neutrophils # Seg Neutrophils # Man Lymphocytes # (Manual) Monocytes # (Manual) Percent Retic Haptoglobin PT INR APTT POC ABG pH POC ABG pCO2 POC ABG pO2 Sodium Potassium Chloride 108.0 H Carbon Dioxide 19 L BUN 21 H Creatinine 2.7 H Glucose POC Glucose 114 H Lactic Acid Calcium 6.8 L Magnesium Total Bilirubin 4.6 H Direct Bilirubin AST 303 H ALT 204 H Alkaline Phosphatase 280 H Ammonia Lactate Dehydrogenase Total Creatine Kinase 1295 H Total Protein 4.1 L Albumin 1.6 L LDL Cholesterol Direct Vitamin B12 Urine WBC (Auto) CMV IgG Ab Miscellaneous Test Crossmatch 08/24/16 08/24/16 08/24/16 05:00 05:00 14:12 WBC RBC Hgb Hct RDW Plt Count Lymph % (Auto) [place] # Seg Neutrophils % Seg Neuts % (Manual) Lymphocytes % (Manual) Monocytes % (Manual) Nucleated RBC % Seg Neutrophils # Seg Neutrophils # Man Lymphocytes # (Manual) Monocytes # (Manual) Percent Retic Haptoglobin PT 22.1 H INR 1.93 H APTT POC ABG pH 7.479 H POC ABG pCO2 29.6 L POC ABG pO2 62 L Sodium Potassium Chloride Carbon Dioxide BUN Creatinine Glucose POC Glucose Lactic Acid 3.0 H* Calcium Magnesium Total Bilirubin Direct Bilirubin AST ALT Alkaline Phosphatase Ammonia Lactate Dehydrogenase Total Creatine Kinase Total Protein Albumin LDL Cholesterol Direct Vitamin B12 Urine WBC (Auto) CMV IgG Ab Miscellaneous Test Crossmatch 08/24/16 08/24/16 08/24/16 14:30 17:45 23:30 WBC RBC Hgb Hct RDW Plt Count Lymph % (Auto) [place] # Seg Neutrophils % Seg Neuts % (Manual) Lymphocytes % (Manual) Monocytes % (Manual) Nucleated RBC % Seg Neutrophils # Seg Neutrophils # Man Lymphocytes # (Manual) Monocytes # (Manual) Percent Retic Haptoglobin PT INR APTT POC ABG pH POC ABG pCO2 POC ABG pO2 Sodium Potassium Chloride Carbon Dioxide BUN Creatinine Glucose POC Glucose 108 H Lactic Acid Calcium Magnesium 4.7 H Total Bilirubin Direct Bilirubin AST ALT Alkaline Phosphatase Ammonia 61.0 H Lactate Dehydrogenase Total Creatine Kinase Total Protein Albumin LDL Cholesterol Direct Vitamin B12 Urine WBC (Auto) CMV IgG Ab Miscellaneous Test Crossmatch 08/25/16 08/25/16 08/25/16 00:55 02:14 05:45 WBC RBC Hgb Hct RDW Plt Count Lymph % (Auto) [place] # Seg Neutrophils % Seg Neuts % (Manual) Lymphocytes % (Manual) Monocytes % (Manual) Nucleated RBC % Seg Neutrophils # Seg Neutrophils # Man Lymphocytes # (Manual) Monocytes # (Manual) Percent Retic Haptoglobin PT INR APTT POC ABG pH POC ABG pCO2 POC ABG pO2 Sodium Potassium Chloride Carbon Dioxide BUN Creatinine Glucose POC Glucose 106 H Lactic Acid Calcium Magnesium 6.7 H 7.2 H Total Bilirubin Direct Bilirubin AST ALT Alkaline Phosphatase Ammonia Lactate Dehydrogenase Total Creatine Kinase Total Protein Albumin LDL Cholesterol Direct Vitamin B12 Urine WBC (Auto) CMV IgG Ab Miscellaneous Test Crossmatch 08/25/16 08/25/16 08/25/16 05:45 05:45 05:45 WBC 19.1 H RBC 3.24 L Hgb 9.7 L D Hct 29.1 L D RDW 16.1 H Plt Count 112 L Lymph % (Auto) [place] # Seg Neutrophils % Seg Neuts % (Manual) Lymphocytes % (Manual) Monocytes % (Manual) Nucleated RBC % Seg Neutrophils # Seg Neutrophils # Man Lymphocytes # (Manual) Monocytes # (Manual) Percent Retic Haptoglobin PT 20.0 H INR 1.70 H APTT 42.3 H POC ABG pH POC ABG pCO2 POC ABG pO2 Sodium 136 L Potassium Chloride Carbon Dioxide BUN 31 H Creatinine 2.9 H Glucose POC Glucose Lactic Acid Calcium 6.7 L Magnesium Total Bilirubin 5.7 H Direct Bilirubin AST 194 H ALT 119 H Alkaline Phosphatase 299 H Ammonia Lactate Dehydrogenase Total Creatine Kinase Total Protein 4.4 L Albumin 1.7 L LDL Cholesterol Direct Vitamin B12 Urine WBC (Auto) CMV IgG Ab Miscellaneous Test Crossmatch 08/25/16 08/25/16 08/25/16 12:24 12:40 17:53 WBC 19.4 H RBC 3.22 L Hgb 9.5 L Hct 28.6 L RDW 16.5 H Plt Count 106 L Lymph % (Auto) [place] # Seg Neutrophils % Seg Neuts % (Manual) 76.0 H Lymphocytes % (Manual) 8.0 L Monocytes % (Manual) Nucleated RBC % 7.0 H Seg Neutrophils # Seg Neutrophils # Man 14.7 H Lymphocytes # (Manual) Monocytes # (Manual) Percent Retic Haptoglobin PT INR APTT POC ABG pH POC ABG pCO2 POC ABG pO2 Sodium Potassium Chloride Carbon Dioxide BUN Creatinine Glucose POC Glucose Lactic Acid Calcium Magnesium 6.5 H 5.9 H Total Bilirubin Direct Bilirubin AST ALT Alkaline Phosphatase Ammonia Lactate Dehydrogenase Total Creatine Kinase Total Protein Albumin LDL Cholesterol Direct Vitamin B12 Urine WBC (Auto) CMV IgG Ab Miscellaneous Test Crossmatch 08/25/16 08/25/16 08/26/16 19:56 23:18 04:50 WBC 19.1 H RBC 2.73 L Hgb 8.2 L Hct 24.4 L RDW 16.1 H Plt Count 95 L Lymph % (Auto) [place] # Seg Neutrophils % Seg Neuts % (Manual) 86.0 H Lymphocytes % (Manual) 9.0 L Monocytes % (Manual) Nucleated RBC % 10.0 H Seg Neutrophils # Seg Neutrophils # Man 16.4 H Lymphocytes # (Manual) Monocytes # (Manual) Percent Retic Haptoglobin PT INR APTT POC ABG pH POC ABG pCO2 POC ABG pO2 Sodium Potassium Chloride Carbon Dioxide BUN Creatinine Glucose POC Glucose 107 H Lactic Acid Calcium Magnesium 5.2 H Total Bilirubin Direct Bilirubin AST ALT Alkaline Phosphatase Ammonia Lactate Dehydrogenase Total Creatine Kinase Total Protein Albumin LDL Cholesterol Direct Vitamin B12 Urine WBC (Auto) CMV IgG Ab Miscellaneous Test Crossmatch 08/26/16 08/26/16 08/26/16 04:50 08:26 10:07 WBC RBC Hgb Hct RDW Plt Count Lymph % (Auto) [place] # Seg Neutrophils % Seg Neuts % (Manual) Lymphocytes % (Manual) Monocytes % (Manual) Nucleated RBC % Seg Neutrophils # Seg Neutrophils # Man Lymphocytes # (Manual) Monocytes # (Manual) Percent Retic Haptoglobin PT INR APTT POC ABG pH POC ABG pCO2 POC ABG pO2 Sodium 136 L Potassium Chloride Carbon Dioxide BUN 33 H Creatinine 2.0 H Glucose POC Glucose 115 H Lactic Acid Calcium 6.3 L Magnesium 4.5 H Total Bilirubin 7.6 H Direct Bilirubin 6.6 H AST 112 H ALT 63 H Alkaline Phosphatase 253 H Ammonia Lactate Dehydrogenase Total Creatine Kinase Total Protein 4.1 L Albumin 1.6 L LDL Cholesterol Direct Vitamin B12 Urine WBC (Auto) CMV IgG Ab Miscellaneous Test Crossmatch 08/26/16 08/26/16 08/26/16 14:54 17:47 20:02 WBC RBC Hgb Hct RDW Plt Count Lymph % (Auto) [place] # Seg Neutrophils % Seg Neuts % (Manual) Lymphocytes % (Manual) Monocytes % (Manual) Nucleated RBC % Seg Neutrophils # Seg Neutrophils # Man Lymphocytes # (Manual) Monocytes # (Manual) Percent Retic Haptoglobin PT INR APTT POC ABG pH POC ABG pCO2 POC ABG pO2 Sodium Potassium Chloride Carbon Dioxide BUN Creatinine Glucose POC Glucose 109 H 120 H 123 H Lactic Acid Calcium Magnesium Total Bilirubin Direct Bilirubin AST ALT Alkaline Phosphatase Ammonia Lactate Dehydrogenase Total Creatine Kinase Total Protein Albumin LDL Cholesterol Direct Vitamin B12 Urine WBC (Auto) CMV IgG Ab Miscellaneous Test Crossmatch 08/26/16 08/26/16 08/27/16 21:42 23:41 01:59 WBC RBC Hgb Hct RDW Plt Count Lymph % (Auto) [place] # Seg Neutrophils % Seg Neuts % (Manual) Lymphocytes % (Manual) Monocytes % (Manual) Nucleated RBC % Seg Neutrophils # Seg Neutrophils # Man Lymphocytes # (Manual) Monocytes # (Manual) Percent Retic Haptoglobin PT INR APTT POC ABG pH POC ABG pCO2 POC ABG pO2 Sodium Potassium Chloride Carbon Dioxide BUN Creatinine Glucose POC Glucose 125 H 114 H 127 H Lactic Acid Calcium Magnesium Total Bilirubin Direct Bilirubin AST ALT Alkaline Phosphatase Ammonia Lactate Dehydrogenase Total Creatine Kinase Total Protein Albumin LDL Cholesterol Direct Vitamin B12 Urine WBC (Auto) CMV IgG Ab Miscellaneous Test Crossmatch 08/27/16 08/27/16 08/27/16 04:01 05:46 06:37 WBC 16.1 H RBC 2.19 L Hgb 6.3 L Hct 19.9 L* RDW 16.2 H Plt Count 103 L Lymph % (Auto) [place] # Seg Neutrophils % Seg Neuts % (Manual) 83.0 H Lymphocytes % (Manual) 10.0 L Monocytes % (Manual) Nucleated RBC % 9.0 H Seg Neutrophils # Seg Neutrophils # Man 13.4 H Lymphocytes # (Manual) Monocytes # (Manual) Percent Retic Haptoglobin PT INR APTT POC ABG pH POC ABG pCO2 POC ABG pO2 Sodium Potassium Chloride Carbon Dioxide BUN Creatinine Glucose POC Glucose 144 H 121 H Lactic Acid Calcium Magnesium Total Bilirubin Direct Bilirubin AST ALT Alkaline Phosphatase Ammonia Lactate Dehydrogenase Total Creatine Kinase Total Protein Albumin LDL Cholesterol Direct Vitamin B12 Urine WBC (Auto) CMV IgG Ab Miscellaneous Test Crossmatch 08/27/16 08/27/16 08/27/16 06:37 07:50 08:20 WBC RBC Hgb Hct RDW Plt Count Lymph % (Auto) [place] # Seg Neutrophils % Seg Neuts % (Manual) Lymphocytes % (Manual) Monocytes % (Manual) Nucleated RBC % Seg Neutrophils # Seg Neutrophils # Man Lymphocytes # (Manual) Monocytes # (Manual) Percent Retic Haptoglobin PT INR APTT POC ABG pH POC ABG pCO2 POC ABG pO2 Sodium 133 L Potassium Chloride Carbon Dioxide 20 L BUN 31 H Creatinine Glucose 118 H POC Glucose 141 H Lactic Acid Calcium 6.4 L Magnesium Total Bilirubin 9.7 H Direct Bilirubin AST 73 H ALT Alkaline Phosphatase 215 H Ammonia Lactate Dehydrogenase Total Creatine Kinase Total Protein 3.8 L Albumin 1.5 L LDL Cholesterol Direct Vitamin B12 Urine WBC (Auto) CMV IgG Ab Miscellaneous Test Crossmatch See Detail 08/27/16 08/27/16 08/27/16 08:40 08:40 09:55 WBC RBC Hgb 6.1 L Hct 18.4 L* RDW Plt Count Lymph % (Auto) [place] # Seg Neutrophils % Seg Neuts % (Manual) Lymphocytes % (Manual) Monocytes % (Manual) Nucleated RBC % Seg Neutrophils # Seg Neutrophils # Man Lymphocytes # (Manual) Monocytes # (Manual) Percent Retic Haptoglobin PT INR APTT POC ABG pH POC ABG pCO2 POC ABG pO2 Sodium Potassium Chloride Carbon Dioxide BUN Creatinine Glucose POC Glucose 133 H Lactic Acid Calcium Magnesium Total Bilirubin Direct Bilirubin AST ALT Alkaline Phosphatase Ammonia Lactate Dehydrogenase 844 H Total Creatine Kinase Total Protein Albumin LDL Cholesterol Direct Vitamin B12 Urine WBC (Auto) CMV IgG Ab Miscellaneous Test Crossmatch 08/27/16 08/27/16 08/27/16 11:15 11:15 11:15 WBC RBC Hgb Hct RDW Plt Count Lymph % (Auto) [place] # Seg Neutrophils % Seg Neuts % (Manual) Lymphocytes % (Manual) Monocytes % (Manual) Nucleated RBC % Seg Neutrophils # Seg Neutrophils # Man Lymphocytes # (Manual) Monocytes # (Manual) Percent Retic 6.59 H Haptoglobin <15 L PT 17.2 H INR 1.41 H APTT POC ABG pH POC ABG pCO2 POC ABG pO2 Sodium Potassium Chloride Carbon Dioxide BUN Creatinine Glucose POC Glucose Lactic Acid Calcium Magnesium Total Bilirubin Direct Bilirubin AST ALT Alkaline Phosphatase Ammonia Lactate Dehydrogenase Total Creatine Kinase Total Protein Albumin LDL Cholesterol Direct Vitamin B12 Urine WBC (Auto) CMV IgG Ab Miscellaneous Test Crossmatch 08/27/16 08/27/16 08/27/16 11:15 11:59 14:06 WBC RBC Hgb Hct RDW Plt Count Lymph % (Auto) [place] # Seg Neutrophils % Seg Neuts % (Manual) Lymphocytes % (Manual) Monocytes % (Manual) Nucleated RBC % Seg Neutrophils # Seg Neutrophils # Man Lymphocytes # (Manual) Monocytes # (Manual) Percent Retic Haptoglobin PT INR APTT POC ABG pH POC ABG pCO2 POC ABG pO2 Sodium Potassium Chloride Carbon Dioxide BUN Creatinine Glucose POC Glucose 129 H 148 H Lactic Acid Calcium Magnesium Total Bilirubin Direct Bilirubin AST ALT Alkaline Phosphatase Ammonia Lactate Dehydrogenase Total Creatine Kinase Total Protein Albumin LDL Cholesterol Direct Vitamin B12 > 2000 H Urine WBC (Auto) CMV IgG Ab Miscellaneous Test Crossmatch 08/27/16 08/27/16 08/27/16 15:20 16:23 19:35 WBC 26.5 H RBC 2.19 L Hgb 6.6 L Hct 20.1 L RDW 15.9 H Plt Count 78 L Lymph % (Auto) [place] # Seg Neutrophils % Seg Neuts % (Manual) Lymphocytes % (Manual) Monocytes % (Manual) Nucleated RBC % Seg Neutrophils # Seg Neutrophils # Man Lymphocytes # (Manual) Monocytes # (Manual) Percent Retic Haptoglobin PT INR APTT POC ABG pH POC ABG pCO2 POC ABG pO2 Sodium Potassium Chloride Carbon Dioxide BUN Creatinine Glucose POC Glucose 111 H Lactic Acid Calcium Magnesium Total Bilirubin Direct Bilirubin AST ALT Alkaline Phosphatase Ammonia Lactate Dehydrogenase Total Creatine Kinase Total Protein Albumin LDL Cholesterol Direct Vitamin B12 Urine WBC (Auto) 10.0 H CMV IgG Ab Miscellaneous Test Crossmatch 08/27/16 08/27/16 08/28/16 19:46 21:36 00:18 WBC RBC Hgb Hct RDW Plt Count Lymph % (Auto) [place] # Seg Neutrophils % Seg Neuts % (Manual) Lymphocytes % (Manual) Monocytes % (Manual) Nucleated RBC % Seg Neutrophils # Seg Neutrophils # Man Lymphocytes # (Manual) Monocytes # (Manual) Percent Retic Haptoglobin PT INR APTT POC ABG pH POC ABG pCO2 POC ABG pO2 Sodium Potassium Chloride Carbon Dioxide BUN Creatinine Glucose POC Glucose 108 H 129 H 114 H Lactic Acid Calcium Magnesium Total Bilirubin Direct Bilirubin AST ALT Alkaline Phosphatase Ammonia Lactate Dehydrogenase Total Creatine Kinase Total Protein Albumin LDL Cholesterol Direct Vitamin B12 Urine WBC (Auto) CMV IgG Ab Miscellaneous Test Crossmatch 08/28/16 08/28/16 08/28/16 02:22 03:19 05:30 WBC RBC Hgb Hct RDW Plt Count Lymph % (Auto) [place] # Seg Neutrophils % Seg Neuts % (Manual) Lymphocytes % (Manual) Monocytes % (Manual) Nucleated RBC % Seg Neutrophils # Seg Neutrophils # Man Lymphocytes # (Manual) Monocytes # (Manual) Percent Retic Haptoglobin PT 19.0 H INR 1.60 H APTT POC ABG pH POC ABG pCO2 POC ABG pO2 Sodium Potassium Chloride Carbon Dioxide BUN Creatinine Glucose POC Glucose 121 H 120 H Lactic Acid Calcium Magnesium Total Bilirubin Direct Bilirubin AST ALT Alkaline Phosphatase Ammonia Lactate Dehydrogenase Total Creatine Kinase Total Protein Albumin LDL Cholesterol Direct Vitamin B12 Urine WBC (Auto) CMV IgG Ab Miscellaneous Test Crossmatch 08/28/16 08/28/16 08/28/16 05:30 05:30 06:03 WBC 29.9 H RBC 2.54 L Hgb 8.0 L Hct 23.5 L RDW 15.4 H Plt Count 49 L Lymph % (Auto) [place] # Seg Neutrophils % Seg Neuts % (Manual) 91.5 H Lymphocytes % (Manual) 2.0 L Monocytes % (Manual) Nucleated RBC % 12.0 H Seg Neutrophils # Seg Neutrophils # Man 27.4 H Lymphocytes # (Manual) 0.6 L Monocytes # (Manual) 0.9 H Percent Retic Haptoglobin PT INR APTT POC ABG pH POC ABG pCO2 POC ABG pO2 Sodium 133 L Potassium Chloride Carbon Dioxide 19 L BUN 47 H Creatinine Glucose 130 H POC Glucose 142 H Lactic Acid Calcium 6.7 L Magnesium Total Bilirubin 25.3 H Direct Bilirubin AST 170 H ALT Alkaline Phosphatase 252 H Ammonia Lactate Dehydrogenase Total Creatine Kinase Total Protein 4.2 L Albumin 1.5 L LDL Cholesterol Direct Vitamin B12 Urine WBC (Auto) CMV IgG Ab Miscellaneous Test Crossmatch 08/28/16 08/28/16 08/28/16 07:55 11:11 12:03 WBC RBC Hgb Hct RDW Plt Count Lymph % (Auto) [place] # Seg Neutrophils % Seg Neuts % (Manual) Lymphocytes % (Manual) Monocytes % (Manual) Nucleated RBC % Seg Neutrophils # Seg Neutrophils # Man Lymphocytes # (Manual) Monocytes # (Manual) Percent Retic Haptoglobin PT INR APTT POC ABG pH POC ABG pCO2 POC ABG pO2 Sodium Potassium Chloride Carbon Dioxide BUN Creatinine Glucose POC Glucose 141 H 153 H 174 H Lactic Acid Calcium Magnesium Total Bilirubin Direct Bilirubin AST ALT Alkaline Phosphatase Ammonia Lactate Dehydrogenase Total Creatine Kinase Total Protein Albumin LDL Cholesterol Direct Vitamin B12 Urine WBC (Auto) CMV IgG Ab Miscellaneous Test Crossmatch 08/28/16 08/28/16 08/28/16 14:03 16:45 16:45 WBC 23.1 H RBC 2.33 L Hgb 7.2 L Hct 21.6 L RDW 15.6 H Plt Count 53 L Lymph % (Auto) [place] # Seg Neutrophils % Seg Neuts % (Manual) Lymphocytes % (Manual) Monocytes % (Manual) Nucleated RBC % Seg Neutrophils # Seg Neutrophils # Man Lymphocytes # (Manual) Monocytes # (Manual) Percent Retic Haptoglobin PT 16.6 H INR 1.35 H APTT POC ABG pH POC ABG pCO2 POC ABG pO2 Sodium Potassium Chloride Carbon Dioxide BUN Creatinine Glucose POC Glucose 129 H Lactic Acid Calcium Magnesium Total Bilirubin Direct Bilirubin AST ALT Alkaline Phosphatase Ammonia Lactate Dehydrogenase Total Creatine Kinase Total Protein Albumin LDL Cholesterol Direct Vitamin B12 Urine WBC (Auto) CMV IgG Ab Miscellaneous Test Crossmatch 08/28/16 08/28/16 08/28/16 16:45 16:49 18:32 WBC RBC Hgb Hct RDW Plt Count Lymph % (Auto) [place] # Seg Neutrophils % Seg Neuts % (Manual) Lymphocytes % (Manual) Monocytes % (Manual) Nucleated RBC % Seg Neutrophils # Seg Neutrophils # Man Lymphocytes # (Manual) Monocytes # (Manual) Percent Retic Haptoglobin PT INR APTT POC ABG pH POC ABG pCO2 POC ABG pO2 Sodium 134 L Potassium Chloride Carbon Dioxide 19 L BUN 54 H Creatinine Glucose 134 H POC Glucose 142 H 144 H Lactic Acid Calcium 6.7 L Magnesium Total Bilirubin 23.5 H Direct Bilirubin AST 129 H ALT Alkaline Phosphatase 217 H Ammonia Lactate Dehydrogenase Total Creatine Kinase Total Protein 4.1 L Albumin 1.7 L LDL Cholesterol Direct Vitamin B12 Urine WBC (Auto) CMV IgG Ab Miscellaneous Test Crossmatch 08/28/16 08/28/16 08/28/16 20:22 21:58 23:55 WBC RBC Hgb Hct RDW Plt Count Lymph % (Auto) [place] # Seg Neutrophils % Seg Neuts % (Manual) Lymphocytes % (Manual) Monocytes % (Manual) Nucleated RBC % Seg Neutrophils # Seg Neutrophils # Man Lymphocytes # (Manual) Monocytes # (Manual) Percent Retic Haptoglobin PT INR APTT POC ABG pH POC ABG pCO2 POC ABG pO2 Sodium Potassium Chloride Carbon Dioxide BUN Creatinine Glucose POC Glucose 138 H 178 H 187 H Lactic Acid Calcium Magnesium Total Bilirubin Direct Bilirubin AST ALT Alkaline Phosphatase Ammonia Lactate Dehydrogenase Total Creatine Kinase Total Protein Albumin LDL Cholesterol Direct Vitamin B12 Urine WBC (Auto) CMV IgG Ab Miscellaneous Test Crossmatch 08/29/16 08/29/16 08/29/16 02:05 03:57 04:30 WBC 19.4 H RBC 2.24 L Hgb 6.9 L Hct 20.6 L RDW 16.1 H Plt Count 51 L Lymph % (Auto) [place] # Seg Neutrophils % Seg Neuts % (Manual) Lymphocytes % (Manual) 7.0 L Monocytes % (Manual) Nucleated RBC % 7.0 H Seg Neutrophils # Seg Neutrophils # Man 13.2 H Lymphocytes # (Manual) Monocytes # (Manual) 1.2 H Percent Retic Haptoglobin PT INR APTT POC ABG pH POC ABG pCO2 POC ABG pO2 Sodium Potassium Chloride Carbon Dioxide BUN Creatinine Glucose POC Glucose 173 H 161 H Lactic Acid Calcium Magnesium Total Bilirubin Direct Bilirubin AST ALT Alkaline Phosphatase Ammonia Lactate Dehydrogenase Total Creatine Kinase Total Protein Albumin LDL Cholesterol Direct Vitamin B12 Urine WBC (Auto) CMV IgG Ab Miscellaneous Test Crossmatch 08/29/16 08/29/16 08/29/16 04:30 04:30 05:53 WBC RBC Hgb Hct RDW Plt Count Lymph % (Auto) [place] # Seg Neutrophils % Seg Neuts % (Manual) Lymphocytes % (Manual) Monocytes % (Manual) Nucleated RBC % Seg Neutrophils # Seg Neutrophils # Man Lymphocytes # (Manual) Monocytes # (Manual) Percent Retic Haptoglobin PT INR APTT POC ABG pH POC ABG pCO2 POC ABG pO2 Sodium 132 L Potassium Chloride Carbon Dioxide 19 L BUN 53 H Creatinine Glucose 160 H POC Glucose 160 H Lactic Acid Calcium 6.7 L Magnesium Total Bilirubin 23.2 H 23.2 H Direct Bilirubin 18.9 H AST 89 H ALT Alkaline Phosphatase 208 H Ammonia Lactate Dehydrogenase Total Creatine Kinase Total Protein 4.1 L Albumin 1.7 L LDL Cholesterol Direct Vitamin B12 Urine WBC (Auto) CMV IgG Ab Miscellaneous Test Crossmatch 08/29/16 08/29/16 08/29/16 07:56 11:50 15:35 WBC RBC Hgb Hct RDW Plt Count Lymph % (Auto) [place] # Seg Neutrophils % Seg Neuts % (Manual) Lymphocytes % (Manual) Monocytes % (Manual) Nucleated RBC % Seg Neutrophils # Seg Neutrophils # Man Lymphocytes # (Manual) Monocytes # (Manual) Percent Retic Haptoglobin PT INR APTT POC ABG pH POC ABG pCO2 POC ABG pO2 Sodium Potassium Chloride Carbon Dioxide BUN Creatinine Glucose POC Glucose 144 H 155 H 130 H Lactic Acid Calcium Magnesium Total Bilirubin Direct Bilirubin AST ALT Alkaline Phosphatase Ammonia Lactate Dehydrogenase Total Creatine Kinase Total Protein Albumin LDL Cholesterol Direct Vitamin B12 Urine WBC (Auto) CMV IgG Ab Miscellaneous Test Crossmatch 08/29/16 08/29/16 08/30/16 18:05 21:01 04:00 WBC RBC Hgb Hct RDW Plt Count Lymph % (Auto) [place] # Seg Neutrophils % Seg Neuts % (Manual) Lymphocytes % (Manual) Monocytes % (Manual) Nucleated RBC % Seg Neutrophils # Seg Neutrophils # Man Lymphocytes # (Manual) Monocytes # (Manual) Percent Retic Haptoglobin PT INR APTT POC ABG pH POC ABG pCO2 POC ABG pO2 Sodium Potassium 3.4 L Chloride Carbon Dioxide 20 L BUN 42 H Creatinine Glucose 101 H POC Glucose 148 H 138 H Lactic Acid Calcium 6.8 L Magnesium Total Bilirubin 21.1 H Direct Bilirubin 17.9 H AST 54 H ALT Alkaline Phosphatase 183 H Ammonia Lactate Dehydrogenase Total Creatine Kinase Total Protein 3.8 L Albumin 1.5 L LDL Cholesterol Direct Vitamin B12 Urine WBC (Auto) CMV IgG Ab Miscellaneous Test Crossmatch 08/30/16 08/30/16 08/30/16 06:00 06:00 07:50 WBC 13.2 H RBC 2.20 L Hgb 6.9 L Hct 21.0 L RDW 16.7 H Plt Count 42 L Lymph % (Auto) [place] # Seg Neutrophils % Seg Neuts % (Manual) 85.0 H Lymphocytes % (Manual) 6.0 L Monocytes % (Manual) 8.0 H Nucleated RBC % 4.0 H Seg Neutrophils # Seg Neutrophils # Man 11.2 H Lymphocytes # (Manual) 0.8 L Monocytes # (Manual) 1.1 H Percent Retic Haptoglobin PT 16.1 H INR 1.30 H APTT POC ABG pH POC ABG pCO2 POC ABG pO2 Sodium Potassium Chloride Carbon Dioxide BUN Creatinine Glucose POC Glucose 128 H Lactic Acid Calcium Magnesium Total Bilirubin Direct Bilirubin AST ALT Alkaline Phosphatase Ammonia Lactate Dehydrogenase Total Creatine Kinase Total Protein Albumin LDL Cholesterol Direct Vitamin B12 Urine WBC (Auto) CMV IgG Ab Miscellaneous Test Crossmatch 08/30/16 08/30/16 11:42 15:51 WBC RBC Hgb Hct RDW Plt Count Lymph % (Auto) [place] # Seg Neutrophils % Seg Neuts % (Manual) Lymphocytes % (Manual) Monocytes % (Manual) Nucleated RBC % Seg Neutrophils # Seg Neutrophils # Man Lymphocytes # (Manual) Monocytes # (Manual) Percent Retic Haptoglobin PT INR APTT POC ABG pH POC ABG pCO2 POC ABG pO2 Sodium Potassium Chloride Carbon Dioxide BUN Creatinine Glucose POC Glucose 188 H 137 H Lactic Acid Calcium Magnesium Total Bilirubin Direct Bilirubin AST ALT Alkaline Phosphatase Ammonia Lactate Dehydrogenase Total Creatine Kinase Total Protein Albumin LDL Cholesterol Direct Vitamin B12 Urine WBC (Auto) CMV IgG Ab Miscellaneous Test Crossmatch
--- NOTE | 2016-08-30 18:53 | Progress Note ---
Assessment and Plan Current antibiotics: Vancomycin 1250 mg IV q8h 08/28 --> Previous antibiotics: Levaquin 750 mg IV q24h 08/28-08/30 Zosyn 2.25 g IV every 6 hours (08/23-08/25) Tamiflu (75 mg po 08/22) Immunosuppressants: Solu-Medrol 20 mg IV 1 ( 08/27) Health maintenance record: HIV negative Hepatitis A, B, C negative Toxoplasma IgM negative Rubella IgG positive (immune) Parvovirus B19 IgM negative, IgG positive (past exposure) Rh- ASSESSMENT: Ms Lopez is a 41-year-old female without known chronic medical problems who was admitted to [facility] on 08/22/16 with flulike symptoms in association with 31.2 weeks IUP. She developed evidence of non-reassuring FHR requiring emergent low segment transverse and is now seen with possible sepsis in association with progressive liver failure & possible HELLP syndrome. Problem list: 1. Sepsis syndrome with marked leukocytosis and acidosis - R/O aspiration - R/O UTI - R/O biliary sepsis - R/O viral syndrome -Rule out all secondary to primary problem without infection -Work up with no evidence of active infection 2. HELLP syndrome (hemolysis, elevated liver enzymes, thrombocytopenia) -Clinically improving 3. Anemia - Acute/ anemia of - s/p PRBCs x 4 4. Coagulopathy secondary to above - s/p 2 units FFP 5. SHAUNA - Improved 6. s/p 32 WK IUP- s/p 08/22 PLAN: 1. Stop antibiotics at this point and follow 2. Continued close observation and support 3. Follow lab Discussed with Dr. Mindy Monroe MD [facility] Office: [phone] Subjective Date of service: 08/30/16 Principal diagnosis: Thrombocytopenia,Jaundice HELLP syndrome, status post C- section Interval history: Feeling better. No specific complaints. ROS: No subjective fever or chills. No nausea, vomiting or diarrhea. No shortness of breath, cough or pleuritic chest pain Objective - Exam Narrative Exam: GENERAL: Well-developed , nourished appearing female who is alert and in no acute distress. There is marked generalized jaundice. She appears clinically improved. HEENT: Pupils are equal reactive to light and accommodation. Marked sclerael icterus. Oropharynx is normal with no evidence of oral candidiasis or pharyngitis. NECK: Supple. No enlargement of the thyroid gland. No significant cervical lymphadenopathy. No jugular venous distention at 30. LUNGS: Clear with slight diminished breath sounds at bases. HEART: Tachycardic. There are no murmurs, gallops, clicks or rubs heard. ABDOMEN: Soft and slightly distended. Essentially nontender at this point. Liver and spleen are not palpably enlarged. No palpable masses. Bowel sounds are normoactive. Ascites is not appreciated. EXTREMITIES: 2+ generalized edema. IV dressings sites are clean. SKIN: No other rash, ulcers or wounds. NEUROLOGIC: No focal findings. - Constitutional Vitals: Vital Signs Temp Pulse Resp BP Pulse Ox 97.4 F L 69 20 122/71 100 08/30/16 16:00 08/30/16 18:00 08/30/16 18:00 08/30/16 18:00 08/30/16 18:00 Temperature -Last 24 Hours Temperature 97.4 F Temperature 98.1 F Temperature 97.6 F Temperature 99.0 F Temperature 98.9 F Temperature 98.7 F - Labs CBC & Chem 7: 08/30/16 06:00 08/30/16 04:00 Labs: Abnormal lab results Laboratory Tests 08/22/16 08/23/16 08/25/16 18:34 09:25 11:45 Total Bilirubin AST Alkaline Phosphatase RPR Nonreactive HSV I DNA PCR Not detected HIV 1&2 Antibody Rapid Non react HIV P24 Antigen Non react 08/28/16 08/29/16 08/29/16 05:30 04:30 04:30 Total Bilirubin 25.3 H 23.2 H AST 89 H Alkaline Phosphatase 208 H RPR HSV I DNA PCR HIV 1&2 Antibody Rapid HIV P24 Antigen 08/30/16 04:00 Total Bilirubin 21.1 H AST 54 H Alkaline Phosphatase 183 H RPR HSV I DNA PCR HIV 1&2 Antibody Rapid HIV P24 Antigen Microbiology 08/26/16 13:31 Peripheral/Venous Blood Culture - Preliminary NO GROWTH AFTER 4 DAYS 08/26/16 14:44 Peripheral/Venous Blood Culture - Preliminary NO GROWTH AFTER 4 DAYS 08/28/16 09:30 Urine,Catheterized - Indwelling Catheter Urine Culture - Preliminary NO GROWTH AFTER 24 HOURS 08/28/16 09:30 Peripheral/Venous Blood Culture - Preliminary NO GROWTH AFTER 48 HOURS 08/28/16 09:29 Peripheral/Venous Blood Culture - Preliminary NO GROWTH AFTER 48 HOURS 08/22/16 21:35 Peripheral/Venous Blood Culture - Final NO GROWTH AFTER 5 DAYS 08/22/16 21:35 Peripheral/Venous Blood Culture - Final NO GROWTH AFTER 5 DAYS 08/25/16 11:41 Urine,Catheterized - Indwelling Catheter Urine Culture - Final NO GROWTH AFTER 48 HOURS 08/22/16 22:07 Nasopharyngeal Swab Influenza Types A,B Antigen (LEIGHANN) - Negative
[2016-08-30] MEDS: D5W 1,000 ML IV SCH (22:12)
[2016-08-30] MEDS: DULCOLAX PO PRN (22:25)
[2016-08-31] MEDS: VANCOMYCIN VIAL 1,250 MG in NACL 0.9% 250ML 250 ML IV SCH (05:20)
[2016-08-31 06:14] LABS: Hematocrit 21.6 % (30.3-42.9); Hemoglobin 7.1 gm/dl (10.1-14.3); Mean Corpuscular HGB Conc 33 % (30-34); Mean Corpuscular Hemoglobin 32 pg (28-32); Mean Corpuscular Volume 97 fl (79-97); Red Blood Count 2.23 M/mm3 (3.65-5.03); Red Cell Distribution Width 17.2 % (13.2-15.2); White Blood Count 14.4 K/mm3 (4.5-11.0)
[2016-08-31 06:22] LABS: Platelet Count 41 K/mm3 (140-440)
[2016-08-31 06:48] LABS: Alanine Aminotransferase 30 units/L (7-56); Albumin 1.3 g/dL (3.9-5); Albumin/Globulin Ratio 0.5 %; Alkaline Phosphatase 178 units/L (35-129); Anion Gap 14 mmol/L; BUN/Creatinine Ratio 35.55; Blood Urea Nitrogen 32 mg/dL (7-17); Calcium 6.9 mg/dL (8.4-10.2); Carbon Dioxide 19 mmol/L (22-30); Chloride 104.9 mmol/L (98-107); Glucose 84 mg/dL (65-100); Potassium 3.2 mmol/L (3.6-5.0); Sodium 135 mmol/L (137-145); Total Protein 3.9 g/dL (6.3-8.2)
[2016-08-31 06:53] LABS: Bilirubin,Total 21.4 mg/dL (0.1-1.2)
[2016-08-31 07:07] LABS: Bilirubin,Direct 17.5 mg/dL (0-0.2); Bilirubin,Indirect 3.9 mg/dL
[2016-08-31 07:31] LABS: Anisocytosis 1+; Basophils % (Manual) 0 % (0.0-1.8); Blastocytes % (Manual) 0 %
[2016-08-31 07:32] LABS: Large Platelets Rare; Polychromasia 1+; Tear Drop Cells Rare
[2016-08-31 07:33] LABS: Diff Status Complete; Platelet Estimate Appears Decreased
--- NOTE | 2016-08-31 08:25 | Progress Note ---
Assessment and Plan Current antibiotics: None Previous antibiotics: Vancomycin IV ( 08/28 - 08/30) Levaquin 750 mg IV q24h 08/28-08/30 Zosyn 2.25 g IV every 6 hours (08/23-08/25) Tamiflu (75 mg po 08/22) Immunosuppressants: Solu-Medrol 20 mg IV 1 ( 08/27) Health maintenance record: HIV negative Hepatitis A, B, C negative Toxoplasma IgM negative Rubella IgG positive (immune) Parvovirus B19 IgM negative, IgG positive (past exposure) Rh- ASSESSMENT: Ms Lopez is a 41-year-old female without known chronic medical problems who was admitted to [facility] on 08/22/16 with flulike symptoms in association with 31.2 weeks IUP. She developed evidence of non-reassuring FHR requiring emergent low segment transverse and is now seen with possible sepsis in association with progressive liver failure & possible HELLP syndrome. Problem list: 1. Sepsis syndrome with marked leukocytosis and acidosis - R/O aspiration - R/O UTI - R/O biliary sepsis - R/O viral syndrome -Rule out all secondary to primary problem without infection -Work up with no evidence of active infection 2. HELLP syndrome (hemolysis, elevated liver enzymes, thrombocytopenia) -Clinically improving -Marked hyperbilirubinemia with improved transaminase levels. 3. Anemia - Acute/ anemia of - s/p PRBCs x 4 4. Coagulopathy secondary to above - s/p 2 units FFP 5. SHAUNA - Improved 6. s/p 32 WK IUP- s/p 08/22 PLAN: 1. Following off antibiotics. 2. Continued close observation and support 3. Follow lab Subjective Date of service: 08/31/16 Principal diagnosis: Thrombocytopenia,Jaundice HELLP syndrome, status post C- section Interval history: Communicated with my limited Indonesian. Patient though without complaints. Remains deeply jaundiced. Objective - Exam Narrative Exam: Marked jaundice. HEENT: Pupils are equal reactive to light and accommodation. Sclerael icterus. Oropharynx is normal with no evidence of oral candidiasis or pharyngitis. NECK: Supple. No enlargement of the thyroid gland. No significant cervical lymphadenopathy. No jugular venous distention at 30. LUNGS: Clear with slight diminished breath sounds at bases. HEART: RRR. There are no murmurs, gallops, clicks or rubs heard. ABDOMEN: Soft. Nontender. Liver and spleen are not palpably enlarged or tender. No palpable masses. Bowel sounds are normoactive. Ascites is not appreciated. EXTREMITIES: 1+ generalized edema. IV dressings sites are clean. SKIN: No other rash, ulcers or wounds. NEUROLOGIC: No focal findings. - Constitutional Vitals: Vital Signs Temp Pulse Resp BP Pulse Ox 97.4 F L 77 15 105/54 96 08/30/16 16:00 08/31/16 08:00 08/31/16 08:00 08/31/16 08:00 08/31/16 08:00 Temperature -Last 24 Hours Temperature 97.4 F Temperature 98.1 F - Labs CBC & Chem 7: 08/31/16 05:20 08/31/16 05:20 Labs: Abnormal lab results 08/30/16 08/30/16 08/30/16 Range/Units 11:42 15:51 22:20 WBC (4.5-11.0) K/mm3 RBC (3.65-5.03) M/mm3 Hgb (10.1-14.3) gm/dl Hct (30.3-42.9) % RDW (13.2-15.2) % Plt Count (140-440) K/mm3 Seg Neuts % (Manual) (40.0-70.0) % Lymphocytes % (Manual) (13.4-35.0) % Eosinophils % (Manual) (0.0-4.3) % Nucleated RBC % (0.0-0.9) % Seg Neutrophils # Man (1.8-7.7) K/mm3 Lymphocytes # (Manual) (1.2-5.4) K/mm3 Monocytes # (Manual) (0.0-0.8) K/mm3 Eosinophils # (Manual) (0.0-0.4) K/mm3 Sodium (137-145) mmol/L Potassium (3.6-5.0) mmol/L Carbon Dioxide (22-30) mmol/L BUN (7-17) mg/dL POC Glucose 188 H 137 H 130 H (70-105) Calcium (8.4-10.2) mg/dL Total Bilirubin (0.1-1.2) mg/dL Direct Bilirubin (0-0.2) mg/dL AST (5-40) units/L Alkaline Phosphatase (35-129) units/L Total Protein (6.3-8.2) g/dL Albumin (3.9-5) g/dL 08/31/16 08/31/16 Range/Units 05:20 05:20 WBC 14.4 H (4.5-11.0) K/mm3 RBC 2.23 L (3.65-5.03) M/mm3 Hgb 7.1 L (10.1-14.3) gm/dl Hct 21.6 L (30.3-42.9) % RDW 17.2 H (13.2-15.2) % Plt Count 41 L (140-440) K/mm3 Seg Neuts % (Manual) 83.0 H (40.0-70.0) % Lymphocytes % (Manual) 5.0 L (13.4-35.0) % Eosinophils % (Manual) 5.0 H (0.0-4.3) % Nucleated RBC % 7.0 H (0.0-0.9) % Seg Neutrophils # Man 12.0 H (1.8-7.7) K/mm3 Lymphocytes # (Manual) 0.7 L (1.2-5.4) K/mm3 Monocytes # (Manual) 1.0 H (0.0-0.8) K/mm3 Eosinophils # (Manual) 0.7 H (0.0-0.4) K/mm3 Sodium 135 L (137-145) mmol/L Potassium 3.2 L (3.6-5.0) mmol/L Carbon Dioxide 19 L (22-30) mmol/L BUN 32 H (7-17) mg/dL POC Glucose (70-105) Calcium 6.9 L (8.4-10.2) mg/dL Total Bilirubin 21.4 H (0.1-1.2) mg/dL Direct Bilirubin 17.5 H (0-0.2) mg/dL AST 42 H (5-40) units/L Alkaline Phosphatase 178 H (35-129) units/L Total Protein 3.9 L (6.3-8.2) g/dL Albumin 1.3 L (3.9-5) g/dL
--- NOTE | 2016-08-31 09:16 | Hem/Onc Progress Note ---
Assessment and Plan CBC and bilirubin all stable. Continue to monitor. Transfuse as necessary for now. Subjective Date of service: 08/31/16 Interval history: Patient looks better. sTill weak. Off of all anti-biotics now. Objective - Exam Narrative Exam: Icteric - Constitutional Vitals: Last Vital Signs Temp 97.4 F L 08/30/16 16:00 Pulse 77 08/31/16 08:00 Resp 15 08/31/16 08:00 BP 105/54 08/31/16 08:00 Pulse Ox 96 08/31/16 08:00 General appearance: no acute distress Performance status: 4-completely disabled - Neck Neck: supple - Respiratory Respiratory effort: Positive: normal - Cardiovascular Rhythm: regular Extremities: abnormal (SCDs) - Gastrointestinal General gastrointestinal: Present: soft (slightly distended) - Labs Lab Results: Laboratory Results - last 24 hr 08/30/16 08/30/16 08/30/16 11:42 15:51 22:20 WBC RBC Hgb Hct MCV MCH MCHC RDW Plt Count Add Manual Diff Total Counted Seg Neuts % (Manual) Band Neutrophils % Lymphocytes % (Manual) Reactive Lymphs % (Man) Monocytes % (Manual) Eosinophils % (Manual) Basophils % (Manual) Metamyelocytes % Myelocytes % Promyelocytes % Blast Cells % Nucleated RBC % Seg Neutrophils # Man Band Neutrophils # Lymphocytes # (Manual) Abs React Lymphs (Man) Monocytes # (Manual) Eosinophils # (Manual) Basophils # (Manual) Metamyelocytes # Myelocytes # Promyelocytes # Blast Cells # WBC Morphology Hypersegmented Neuts Hyposegmented Neuts Hypogranular Neuts Smudge Cells Toxic Granulation Toxic Vacuolation Dohle Bodies Pelger-Huet Anomaly Alaina Rods Platelet Estimate Clumped Platelets Plt Clumps, EDTA Large Platelets Giant Platelets Platelet Satelliting Plt Morphology Comment RBC Morphology Dimorphic RBCs Polychromasia Hypochromasia Poikilocytosis Anisocytosis Microcytosis Macrocytosis Spherocytes Pappenheimer Bodies Sickle Cells Target Cells Tear Drop Cells Ovalocytes Helmet Cells [place] Bodies [place] Rings [place] Cells Bite Cells Crenated Cell Elliptocytes Acanthocytes (Spur) Rouleaux Hemoglobin C Crystals Schistocytes Malaria parasites Daljit Bodies Hem Pathologist Commnt Sodium Potassium Chloride Carbon Dioxide Anion Gap BUN Creatinine Estimated GFR BUN/Creatinine Ratio Glucose POC Glucose 188 H 137 H 130 H Calcium Total Bilirubin Direct Bilirubin Indirect Bilirubin AST ALT Alkaline Phosphatase Total Protein Albumin Albumin/Globulin Ratio 08/31/16 08/31/16 05:20 05:20 WBC 14.4 H RBC 2.23 L Hgb 7.1 L Hct 21.6 L MCV 97 MCH 32 MCHC 33 RDW 17.2 H Plt Count 41 L Add Manual Diff Complete Total Counted 100 Seg Neuts % (Manual) 83.0 H Band Neutrophils % 0 Lymphocytes % (Manual) 5.0 L Reactive Lymphs % (Man) 0 Monocytes % (Manual) 7.0 Eosinophils % (Manual) 5.0 H Basophils % (Manual) 0 Metamyelocytes % 0 Myelocytes % 0 Promyelocytes % 0 Blast Cells % 0 Nucleated RBC % 7.0 H Seg Neutrophils # Man 12.0 H Band Neutrophils # 0.0 Lymphocytes # (Manual) 0.7 L Abs React Lymphs (Man) 0.0 Monocytes # (Manual) 1.0 H Eosinophils # (Manual) 0.7 H Basophils # (Manual) 0.0 Metamyelocytes # 0.0 Myelocytes # 0.0 Promyelocytes # 0.0 Blast Cells # 0.0 WBC Morphology Not Reportable Hypersegmented Neuts Not Reportable Hyposegmented Neuts Not Reportable Hypogranular Neuts Not Reportable Smudge Cells Not Reportable Toxic Granulation Not Reportable Toxic Vacuolation Not Reportable Dohle Bodies Not Reportable Pelger-Huet Anomaly Not Reportable Alaina Rods Not Reportable Platelet Estimate Appears decreased Clumped Platelets Not Reportable Plt Clumps, EDTA Not Reportable Large Platelets Rare Giant Platelets Not Reportable Platelet Satelliting Not Reportable Plt Morphology Comment Not Reportable RBC Morphology Not Reportable Dimorphic RBCs Not Reportable Polychromasia 1+ Hypochromasia Not Reportable Poikilocytosis Not Reportable Anisocytosis 1+ Microcytosis Not Reportable Macrocytosis Not Reportable Spherocytes Not Reportable Pappenheimer Bodies Not Reportable Sickle Cells Not Reportable Target Cells Not Reportable Tear Drop Cells Rare Ovalocytes Not Reportable Helmet Cells Not Reportable [place] Bodies Not Reportable [place] Rings Not Reportable [place] Cells Not Reportable Bite Cells Not Reportable Crenated Cell Not Reportable Elliptocytes Not Reportable Acanthocytes (Spur) Not Reportable Rouleaux Not Reportable Hemoglobin C Crystals Not Reportable Schistocytes Not Reportable Malaria parasites Not Reportable Daljit Bodies Not Reportable Hem Pathologist Commnt No Sodium 135 L Potassium 3.2 L Chloride 104.9 Carbon Dioxide 19 L Anion Gap 14 BUN 32 H Creatinine 0.9 Estimated GFR > 60 BUN/Creatinine Ratio 35.55 Glucose 84 POC Glucose Calcium 6.9 L Total Bilirubin 21.4 H Direct Bilirubin 17.5 H Indirect Bilirubin 3.9 AST 42 H ALT 30 Alkaline Phosphatase 178 H Total Protein 3.9 L Albumin 1.3 L Albumin/Globulin Ratio 0.5
--- NOTE | 2016-08-31 09:26 | Progress Note ---
Assessment and Plan Assessment and plan: Patient is 41 yo woman who was in her 3rd trimester of presented due to decrease movement, was done. Hospitalist was called for viral illness, which was diagnosis prior to hospitalization. After patient was evaluated by Hospitalist, Dr. Brown, for the viral illness in recovery room after the ; she developed hypotension and jaundice. She was transferred to the ICU under the Intensvist service. Operative note as follows, "Date of operation 08/22/16, Diagnosis #1 Intrauterine gestation at 31+ weeks, # 2 NRFHT, #3 viral infection, #4 BPP 09/11, #5 meconium, Postop diagnosis #1-6 same as above, #7 delivery of viable fetus male operation performed primary low segment transverse , #9 PP hemorrhage, #10 uterine atony, Surgeon :Dr. Melton Anesthesia: General Anesthesiologist: Dr. Mendoza Estimated blood loss 1200 mL, Lindsey catheter to bladder 400 mL clear yellow urine. D uring the stay in the ICU the patient was transfused 1 unit per carb also initially she did have a possible TRALI, but this quickly resolved. GI and infectious disease and hematology well consulted upon further review she was started on empiric antibiotic coverage cultures became negative this was discontinued. GI felt that this was acute liver disease of patient appears to be improving S LFTs hemoglobin and platelets are stable at this point. Appears to have plateaued and I expect that they will continue to decrease. She did have some electrolyte abnormalities which are being replaced. She is stable at this time to discharge to the floor. * Acute fatty liver disease of versus HELLP syndrome suspected, baby delivered, bilirubin LFTs improving. Platelets mildly improved, will continue close monitoring. ultrasound showing pericholecystic fluid and wall thickening. Lead Software Engineer input appreciated. No indication for transfer of this time as patient is suspected to make full recovery. She clinically has shown remarkable improvement. * Hypotension: Resolved. Continue gentle IV fluids. TORCH and Parvovirus titers pending. * Hypoglycemia:improved patient now tolerating diet although small on the time of this point * Leukocytosis with sepsis syndrome rule out continues to improve today. No fever. started on Levaquin on empiric IV vancomycin and ID input appreciated * Hyperkalemia: Resolved * Hypokelemia- Replace. * Severe protein calorie malnutrition, present on admission-systems analysis manager input appreciated. We'll attempt to start clear liquid diet if okay with spray pilot * Acute Kidney injury on CKD likely secodary to vasomotor nephropathy and in the setting of hypotension. Resolved * Acute blood loss anemia- hemoglobin 6.9 today. We'll monitor closely. Transfuse as needed up to 7. Likely secondary to hemolysis initial effect of TRALI appears to have resolved. * Thrombocytopenia -stable pathologist input appreciated * Metabolic encephalopathy -resolved likely was secondary to HELLP * Hemolytic Anemia with Jaundice as part of the HELLP syndrome hematology oncology following * DVT/GI prophy * Discussed in detail with family at bedside * Transfer to Medical Floor to Telemetry. History Interval history: Patient seen and examined. Follow up HELLP Syndrome. Patient remains in the ICU, show some remarkable improvement. improving but Remains weak, tolerating some PO. Family visits and then at bedside. No cp, n/v. Imaging, old records, testing, labs, nursing notes reviewed. Hospitalist Physical - Physical exam Narrative exam: VITAL SIGNS: Reviewed. GENERAL: The patient appeared well nourished and normally developed. Vital signs as documented. HEAD: No signs of head trauma. EYES: Pupils are equal. icteric pupils EARS: Hearing grossly intact. MOUTH: Oropharynx is normal. NECK: No adenopathy, no JVD. CHEST: Chest with clear breath sounds bilaterally. No wheezes, rales, or rhonchi. CARDIAC: Regular rate and rhythm. S1 and S2, without murmurs, gallops, or rubs. VASCULAR: Peripheral pulses normal and equal in all extremities. ABDOMEN: Soft, tender in the lower quadrant status post surgical incision pressure dressing in place no other drainage noted. No sign of distention. No rebound or guarding, and no masses palpated. Bowel Sounds normal. MUSCULOSKELETAL: Good range of motion of all major joints. Extremities without clubbing, cyanosis. NEUROLOGIC EXAM: Awake, lethargic and oriented to person, time and place. No focal sensory or strength deficits. Follows simple commands. PSYCHIATRIC: Mood normal. SKIN: Jaundiced. Surgical incision noted no overt drainage. Generalized anasarca. - Constitutional Vitals: Temp Pulse Resp BP Pulse Ox 97.4 F L 77 15 105/54 96 08/30/16 16:00 08/31/16 08:00 08/31/16 08:00 08/31/16 08:00 08/31/16 08:00 General appearance: Present: no acute distress Results - Labs CBC & Chem 7: 08/31/16 05:20 08/31/16 05:20 Labs: Laboratory Last Values WBC 14.4 K/mm3 (4.5-11.0) H 08/31/16 05:20 RBC 2.23 M/mm3 (3.65-5.03) L 08/31/16 05:20 Hgb 7.1 gm/dl (10.1-14.3) L 08/31/16 05:20 Hct 21.6 % (30.3-42.9) L 08/31/16 05:20 MCV 97 fl (79-97) 08/31/16 05:20 MCH 32 pg (28-32) 08/31/16 05:20 MCHC 33 % (30-34) 08/31/16 05:20 RDW 17.2 % (13.2-15.2) H 08/31/16 05:20 Plt Count 41 K/mm3 (140-440) L 08/31/16 05:20 Lymph % (Auto) 14.6 % (13.4-35.0) 08/23/16 05:19 [place] % (Auto) 6.6 % (0.0-7.3) 08/23/16 05:19 Eos % (Auto) 1.2 % (0.0-4.3) 08/23/16 05:19 Baso % (Auto) 0.4 % (0.0-1.8) 08/23/16 05:19 Lymph # Tariff Supervisor 08/26/16 04:50 [place] # 1.1 K/mm3 (0.0-0.8) H 08/23/16 05:19 Eos # 0.2 K/mm3 (0.0-0.4) 08/23/16 05:19 Baso # 0.1 K/mm3 (0.0-0.1) 08/23/16 05:19 Add Manual Diff Complete 08/31/16 05:20 Total Counted 100 08/31/16 05:20 Seg Neutrophils % Tariff Supervisor 08/28/16 05:30 Seg Neuts % (Manual) 83.0 % (40.0-70.0) H 08/31/16 05:20 Band Neutrophils % 0 % 08/31/16 05:20 Lymphocytes % (Manual) 5.0 % (13.4-35.0) L 08/31/16 05:20 Reactive Lymphs % (Man) 0 % 08/31/16 05:20 Monocytes % (Manual) 7.0 % (0.0-7.3) 08/31/16 05:20 Eosinophils % (Manual) 5.0 % (0.0-4.3) H 08/31/16 05:20 Basophils % (Manual) 0 % (0.0-1.8) 08/31/16 05:20 Metamyelocytes % 0 % 08/31/16 05:20 Myelocytes % 0 % 08/31/16 05:20 Promyelocytes % 0 % 08/31/16 05:20 Blast Cells % 0 % 08/31/16 05:20 Nucleated RBC % 7.0 % (0.0-0.9) H 08/31/16 05:20 Seg Neutrophils # 13.1 K/mm3 (1.8-7.7) H 08/23/16 05:19 Seg Neutrophils # Man 12.0 K/mm3 (1.8-7.7) H 08/31/16 05:20 Band Neutrophils # 0.0 K/mm3 08/31/16 05:20 Lymphocytes # (Manual) 0.7 K/mm3 (1.2-5.4) L 08/31/16 05:20 Abs React Lymphs (Man) 0.0 K/mm3 08/31/16 05:20 Monocytes # (Manual) 1.0 K/mm3 (0.0-0.8) H 08/31/16 05:20 Eosinophils # (Manual) 0.7 K/mm3 (0.0-0.4) H 08/31/16 05:20 Basophils # (Manual) 0.0 K/mm3 (0.0-0.1) 08/31/16 05:20 Metamyelocytes # 0.0 K/mm3 08/31/16 05:20 Myelocytes # 0.0 K/mm3 08/31/16 05:20 Promyelocytes # 0.0 K/mm3 08/31/16 05:20 Blast Cells # 0.0 K/mm3 08/31/16 05:20 WBC Morphology Not Reportable 08/31/16 05:20 Hypersegmented Neuts Not Reportable 08/31/16 05:20 Hyposegmented Neuts Not Reportable 08/31/16 05:20 Hypogranular Neuts Not Reportable 08/31/16 05:20 Smudge Cells Not Reportable 08/31/16 05:20 Toxic Granulation Not Reportable 08/31/16 05:20 Toxic Vacuolation Not Reportable 08/31/16 05:20 Dohle Bodies Not Reportable 08/31/16 05:20 Pelger-Huet Anomaly Not Reportable 08/31/16 05:20 Alaina Rods Not Reportable 08/31/16 05:20 Platelet Estimate Appears decreased 08/31/16 05:20 Clumped Platelets Not Reportable 08/31/16 05:20 Plt Clumps, EDTA Not Reportable 08/31/16 05:20 Large Platelets Rare 08/31/16 05:20 Giant Platelets Not Reportable 08/31/16 05:20 Platelet Satelliting Not Reportable 08/31/16 05:20 Plt Morphology Comment Not Reportable 08/31/16 05:20 RBC Morphology Not Reportable 08/31/16 05:20 Dimorphic RBCs Not Reportable 08/31/16 05:20 Polychromasia 1+ 08/31/16 05:20 Hypochromasia Not Reportable 08/31/16 05:20 Poikilocytosis Not Reportable 08/31/16 05:20 Anisocytosis 1+ 08/31/16 05:20 Microcytosis Not Reportable 08/31/16 05:20 Macrocytosis Not Reportable 08/31/16 05:20 Spherocytes Not Reportable 08/31/16 05:20 Pappenheimer Bodies Not Reportable 08/31/16 05:20 Sickle Cells Not Reportable 08/31/16 05:20 Target Cells Not Reportable 08/31/16 05:20 Tear Drop Cells Rare 08/31/16 05:20 Ovalocytes Not Reportable 08/31/16 05:20 Helmet Cells Not Reportable 08/31/16 05:20 Whittaker-[place] Bodies Not Reportable 08/31/16 05:20 [place] Rings Not Reportable 08/31/16 05:20 [place] Cells Not Reportable 08/31/16 05:20 Bite Cells Not Reportable 08/31/16 05:20 Crenated Cell Not Reportable 08/31/16 05:20 Elliptocytes Not Reportable 08/31/16 05:20 Acanthocytes (Spur) Not Reportable 08/31/16 05:20 Rouleaux Not Reportable 08/31/16 05:20 Hemoglobin C Crystals Not Reportable 08/31/16 05:20 Schistocytes Not Reportable 08/31/16 05:20 Malaria parasites Not Reportable 08/31/16 05:20 Percent Retic 6.59 % (0.78-2.58) H 08/27/16 11:15 Sickle Cell Screen Negative (Negative) 08/22/16 18:48 Daljit Bodies Not Reportable 08/31/16 05:20 Haptoglobin <15 mg/dL (43-212) L 08/27/16 11:15 Hem Pathologist Commnt No 08/31/16 05:20 PT 16.1 Sec. (12.2-14.9) H 08/30/16 06:00 INR 1.30 (0.87-1.13) H 08/30/16 06:00 APTT 42.3 Sec. (24.2-36.6) H 08/25/16 05:45 POC ABG pH 7.479 (7.35-7.45) H 08/24/16 14:12 POC ABG pCO2 29.6 (35-45) L 08/24/16 14:12 POC ABG pO2 62 (80-105) L 08/24/16 14:12 POC ABG HCO3 21.9 08/24/16 14:12 POC ABG Total CO2 23 08/24/16 14:12 POC ABG O2 Sat 93 08/24/16 14:12 POC ABG Base Excess -2 08/24/16 14:12 FiO2 3 % 08/24/16 14:12 Sodium 135 mmol/L (137-145) L 08/31/16 05:20 Potassium 3.2 mmol/L (3.6-5.0) L 08/31/16 05:20 Chloride 104.9 mmol/L (98-107) 08/31/16 05:20 Carbon Dioxide 19 mmol/L (22-30) L 08/31/16 05:20 Anion Gap 14 mmol/L 08/31/16 05:20 BUN 32 mg/dL (7-17) H 08/31/16 05:20 Creatinine 0.9 mg/dL (0.7-1.2) 08/31/16 05:20 Estimated GFR > 60 ml/min 08/31/16 05:20 BUN/Creatinine Ratio 35.55 % 08/31/16 05:20 Glucose 84 mg/dL (65-100) 08/31/16 05:20 POC Glucose 130 (70-105) H 08/30/16 22:20 Lactic Acid 2.0 mmol/L (0.7-2.0) 08/29/16 04:30 Calcium 6.9 mg/dL (8.4-10.2) L 08/31/16 05:20 Magnesium 4.5 mg/dL (1.7-2.3) H 08/26/16 04:50 Total Bilirubin 21.4 mg/dL (0.1-1.2) H 08/31/16 05:20 Direct Bilirubin 17.5 mg/dL (0-0.2) H 08/31/16 05:20 Indirect Bilirubin 3.9 mg/dL 08/31/16 05:20 AST 42 units/L (5-40) H 08/31/16 05:20 ALT 30 units/L (7-56) 08/31/16 05:20 Alkaline Phosphatase 178 units/L (35-129) H 08/31/16 05:20 Ammonia 44.0 umol/L (25-60) 08/30/16 05:40 Lactate Dehydrogenase 844 units/L (91-180) H 08/27/16 08:40 Total Creatine Kinase 1295 units/L (30-135) H 08/24/16 05:00 NT-Pro-B Natriuret Pep 241.0 pg/mL (0-450) 08/27/16 16:30 Total Protein 3.9 g/dL (6.3-8.2) L 08/31/16 05:20 Albumin 1.3 g/dL (3.9-5) L 08/31/16 05:20 Albumin/Globulin Ratio 0.5 % 08/31/16 05:20 LDL Cholesterol Direct 38 mg/dL (50-130) L 08/23/16 07:50 Vitamin B12 > 2000 pg/mL (211-911) H 08/27/16 11:15 Folate 10.54 ng/mL (7.3-26.0) 08/27/16 11:15 Urine Color [place] (Yellow) 08/27/16 15:20 Urine Turbidity Clear (Clear) 08/27/16 15:20 Urine pH 6.0 (5.0-7.0) 08/27/16 15:20 Ur Specific [place] 1.018 (1.003-1.030) 08/27/16 15:20 Urine Protein 30 mg/dl mg/dL (Negative) 08/27/16 15:20 Urine Glucose (UA) Neg mg/dL (Negative) 08/27/16 15:20 Urine Ketones Neg mg/dL (Negative) 08/27/16 15:20 Urine Blood Mod (Negative) 08/27/16 15:20 Urine Nitrite Neg (Negative) 08/27/16 15:20 Urine Bilirubin Mod (Negative) 08/27/16 15:20 Urine Ictotest Positive (Negative) 08/27/16 15:20 Urine Urobilinogen 4.0 mg/dL (<2.0) 08/27/16 15:20 Ur Leukocyte Esterase Neg (Negative) 08/27/16 15:20 Urine WBC (Auto) 10.0 /HPF (0.0-6.0) H 08/27/16 15:20 Urine RBC (Auto) 7.0 /HPF (0.0-6.0) 08/27/16 15:20 U Epithel Cells (Auto) < 1.0 /HPF (0-13.0) 08/27/16 15:20 Granular Casts 4 /LPF 08/27/16 15:20 Urine Mucus Few /HPF 08/27/16 15:20 Urine Opiates Screen Presumptive negative 08/22/16 18:30 Urine Methadone Screen Presumptive negative 08/22/16 18:30 Ur Barbiturates Screen Presumptive negative 08/22/16 18:30 Ur Phencyclidine Scrn Presumptive negative 08/22/16 18:30 Ur Amphetamines Screen Presumptive negative 08/22/16 18:30 U Benzodiazepines Scrn Presumptive negative 08/22/16 18:30 Urine Cocaine Screen Presumptive negative 08/22/16 18:30 U Marijuana (THC) Screen Presumptive negative 08/22/16 18:30 Drugs of Abuse Note Disclamer 08/22/16 18:30 RPR Nonreactive (Nonreactive) 08/22/16 18:34 CMV IgG Ab 2.92 (<=0.90) H 08/22/16 18:34 CMV IgM Ab <0.2 (()) 08/22/16 18:34 CMV DNA PCR log copy director/mL See scanned report 08/23/16 13:03 Hepatitis A IgM Ab -1 (NonReactive) 08/27/16 11:15 Hep Bs Antigen Non-reactive (Negative) 08/22/16 18:34 Hepatitis C Antibody Non-reactive (NonReactive) 08/22/16 18:34 Herpes Simplex Source Swab (()) 08/25/16 11:45 HSV I DNA PCR Not detected (Not Detected) 08/25/16 11:45 HSV II DNA PCR Not detected (Not Detected) 08/25/16 11:45 HIV 1&2 Antibody Rapid Non react (Non React) 08/23/16 09:25 HIV P24 Antigen Non react (Non React) 08/23/16 09:25 Rubella IgG Antibody Immune (Immune) 08/22/16 18:34 Rubella IgM Antibody <0.90 (<0.90) 08/22/16 18:34 Schistocytes Smear Rare 08/26/16 04:50 Toxoplasma IgG Ab <=0.90 (<=0.90) 08/22/16 18:34 Toxoplasma IgM Ab Negative (Negative) 08/22/16 18:34 Miscellaneous Test Flexitest 1 (()) H 08/22/16 18:54 Blood Type O NEGATIVE 08/27/16 08:20 Antibody Screen Positive 08/27/16 08:20 Antibody Identification Anti-D (Passively Aquired) 08/27/16 08:20 Direct Antiglob Test Negative 08/27/16 08:20 JYOTI, Poly Interpret Negative 08/27/16 08:20 KB % Cells Negative 08/22/16 Unknown Crossmatch See Detail 08/27/16 08:20 Pre-Trans JYOTI Negative 08/27/16 15:20 Pre-Trans JYOTI Poly Negative 08/27/16 15:20 Post-Trans Blood Type O negative 08/27/16 15:20 Post-Trans JYOTI Negative 08/27/16 15:20 Post-Trans JYOTI Poly Negative 08/27/16 15:20
--- NOTE | 2016-08-31 09:47 | Progress Note ---
Assessment and Plan 41 y/o female with acute encephalopathy, liver failure and acute renal failure of unknown etiology. 1. Follow up heme and GI recs 2. continue to monitor daily H/H and platelet counts 3. Stable from a critical care standpoint for transfer out of unit 4. Will sign off once out of unit. Subjective Date of service: 08/31/16 Principal diagnosis: Thrombocytopenia,Jaundice HELLP syndrome, status post C- section Interval history: No acute events. Family at bedside. Off oxygen. Good sats. Per daughter baby is doing well. Objective - Constitutional Vitals: Vital Signs - 12hr 08/30/16 08/30/16 08/30/16 22:00 22:24 23:00 Pulse Rate 70 73 76 Pulse Rate [ From Monitor] Respiratory 17 16 Rate Blood Pressure 106/63 106/63 113/54 O2 Sat by Pulse 96 95 Oximetry 08/31/16 08/31/16 08/31/16 00:00 01:00 02:00 Pulse Rate 75 80 72 Pulse Rate [ 75 From Monitor] Respiratory 19 19 14 Rate Blood Pressure 113/56 100/58 105/56 O2 Sat by Pulse 97 96 96 Oximetry 08/31/16 08/31/16 08/31/16 03:00 04:00 04:56 Pulse Rate 72 69 75 Pulse Rate [ 69 From Monitor] Respiratory 17 16 14 Rate Blood Pressure 116/56 106/52 106/52 O2 Sat by Pulse 96 95 97 Oximetry 08/31/16 08/31/16 08/31/16 05:00 06:00 07:00 Pulse Rate 75 71 68 Pulse Rate [ From Monitor] Respiratory 17 15 13 Rate Blood Pressure 114/56 111/57 112/58 O2 Sat by Pulse 96 96 97 Oximetry 08/31/16 08/31/16 08/31/16 07:02 07:24 07:58 Pulse Rate 71 63 Pulse Rate [ From Monitor] Respiratory 13 14 14 Rate Blood Pressure 111/57 112/58 O2 Sat by Pulse 97 97 97 Oximetry 08/31/16 08:00 Pulse Rate 77 Pulse Rate [ From Monitor] Respiratory 15 Rate Blood Pressure 105/54 O2 Sat by Pulse 96 Oximetry - Labs CBC & Chem 7: 08/31/16 05:20 08/31/16 05:20 Labs: Abnormal lab results 08/30/16 08/30/16 08/30/16 Range/Units 11:42 15:51 22:20 WBC (4.5-11.0) K/mm3 RBC (3.65-5.03) M/mm3 Hgb (10.1-14.3) gm/dl Hct (30.3-42.9) % RDW (13.2-15.2) % Plt Count (140-440) K/mm3 Seg Neuts % (Manual) (40.0-70.0) % Lymphocytes % (Manual) (13.4-35.0) % Eosinophils % (Manual) (0.0-4.3) % Nucleated RBC % (0.0-0.9) % Seg Neutrophils # Man (1.8-7.7) K/mm3 Lymphocytes # (Manual) (1.2-5.4) K/mm3 Monocytes # (Manual) (0.0-0.8) K/mm3 Eosinophils # (Manual) (0.0-0.4) K/mm3 Sodium (137-145) mmol/L Potassium (3.6-5.0) mmol/L Carbon Dioxide (22-30) mmol/L BUN (7-17) mg/dL POC Glucose 188 H 137 H 130 H (70-105) Calcium (8.4-10.2) mg/dL Total Bilirubin (0.1-1.2) mg/dL Direct Bilirubin (0-0.2) mg/dL AST (5-40) units/L Alkaline Phosphatase (35-129) units/L Total Protein (6.3-8.2) g/dL Albumin (3.9-5) g/dL 08/31/16 08/31/16 Range/Units 05:20 05:20 WBC 14.4 H (4.5-11.0) K/mm3 RBC 2.23 L (3.65-5.03) M/mm3 Hgb 7.1 L (10.1-14.3) gm/dl Hct 21.6 L (30.3-42.9) % RDW 17.2 H (13.2-15.2) % Plt Count 41 L (140-440) K/mm3 Seg Neuts % (Manual) 83.0 H (40.0-70.0) % Lymphocytes % (Manual) 5.0 L (13.4-35.0) % Eosinophils % (Manual) 5.0 H (0.0-4.3) % Nucleated RBC % 7.0 H (0.0-0.9) % Seg Neutrophils # Man 12.0 H (1.8-7.7) K/mm3 Lymphocytes # (Manual) 0.7 L (1.2-5.4) K/mm3 Monocytes # (Manual) 1.0 H (0.0-0.8) K/mm3 Eosinophils # (Manual) 0.7 H (0.0-0.4) K/mm3 Sodium 135 L (137-145) mmol/L Potassium 3.2 L (3.6-5.0) mmol/L Carbon Dioxide 19 L (22-30) mmol/L BUN 32 H (7-17) mg/dL POC Glucose (70-105) Calcium 6.9 L (8.4-10.2) mg/dL Total Bilirubin 21.4 H (0.1-1.2) mg/dL Direct Bilirubin 17.5 H (0-0.2) mg/dL AST 42 H (5-40) units/L Alkaline Phosphatase 178 H (35-129) units/L Total Protein 3.9 L (6.3-8.2) g/dL Albumin 1.3 L (3.9-5) g/dL
[2016-08-31] MEDS: NORMODYNE PO SCH ×2 (10:01→21:47)
--- NOTE | 2016-08-31 11:30 | Gastroenterology Progress Note ---
Assessment and Plan - Patient Problems (1) HELLP (hemolytic anemia/elev liver enzymes/low platelets in ) Current Visit: Yes Status: Acute Plan to address problem: Stable over night. Labs unchanged. Continue to monitor closely. Subjective Date of service: 08/31/16 Principal diagnosis: Thrombocytopenia,Jaundice HELLP syndrome, status post C- section Interval history: Reports feeling week, but no specific symptoms otherwise Objective - Constitutional Vitals: Temp Pulse Resp BP Pulse Ox 97.4 F L 74 18 112/65 96 08/30/16 16:00 08/31/16 10:08/31/16 10:00 08/31/16 10:08/31/16 10:00 General appearance: no acute distress, other (jaundiced) - EENT Eyes: scleral icterus ENT: hearing intact, clear oral mucosa, dentition normal - Respiratory Respiratory effort: normal Respiratory: bilateral: CTA - Extremities Extremities: pulses intact, No edema, normal color, Full ROM - Gastrointestinal General gastrointestinal: Present: soft, non-tender, non-distended, normal bowel sounds, other (incision clean and dry) - Integumentary Integumentary: Present: clear, warm, dry - Neurologic Neurological: alert and oriented x3 - Labs CBC & Chem 7: 08/31/16 05:20 08/31/16 05:20 Labs: Laboratory Results - last 24 hr 08/30/16 08/30/16 08/30/16 11:42 15:51 22:20 WBC RBC Hgb Hct MCV MCH MCHC RDW Plt Count Add Manual Diff Total Counted Seg Neuts % (Manual) Band Neutrophils % Lymphocytes % (Manual) Reactive Lymphs % (Man) Monocytes % (Manual) Eosinophils % (Manual) Basophils % (Manual) Metamyelocytes % Myelocytes % Promyelocytes % Blast Cells % Nucleated RBC % Seg Neutrophils # Man Band Neutrophils # Lymphocytes # (Manual) Abs React Lymphs (Man) Monocytes # (Manual) Eosinophils # (Manual) Basophils # (Manual) Metamyelocytes # Myelocytes # Promyelocytes # Blast Cells # WBC Morphology Hypersegmented Neuts Hyposegmented Neuts Hypogranular Neuts Smudge Cells Toxic Granulation Toxic Vacuolation Dohle Bodies Pelger-Huet Anomaly [place]aina Rods Platelet Estimate Clumped Platelets Plt Clumps, EDTA Large Platelets Giant Platelets Platelet Satelliting Plt Morphology Comment RBC Morphology Dimorphic RBCs Polychromasia Hypochromasia Poikilocytosis Anisocytosis Microcytosis Macrocytosis Spherocytes Pappenheimer Bodies Sickle Cells Target Cells Tear Drop Cells Ovalocytes Helmet Cells [place] Bodies [place] Cells Bite Cells Crenated Cell Elliptocytes Acanthocytes (Spur) Rouleaux Hemoglobin C Crystals Schistocytes Malaria parasites Daljit Bodies Hem Pathologist Commnt Sodium Potassium Chloride Carbon Dioxide Anion Gap BUN Creatinine Estimated GFR BUN/Creatinine Ratio Glucose POC Glucose 188 H 137 H 130 H Calcium Total Bilirubin Direct Bilirubin Indirect Bilirubin AST ALT Alkaline Phosphatase Total Protein Albumin Albumin/Globulin Ratio 08/31/16 08/31/16 05:20 05:20 WBC 14.4 H RBC 2.23 L Hgb 7.1 L Hct 21.6 L MCV 97 MCH 32 MCHC 33 RDW 17.2 H Plt Count 41 L Add Manual Diff Complete Total Counted 100 Seg Neuts % (Manual) 83.0 H Band Neutrophils % 0 Lymphocytes % (Manual) 5.0 L Reactive Lymphs % (Man) 0 Monocytes % (Manual) 7.0 Eosinophils % (Manual) 5.0 H Basophils % (Manual) 0 Metamyelocytes % 0 Myelocytes % 0 Promyelocytes % 0 Blast Cells % 0 Nucleated RBC % 7.0 H Seg Neutrophils # Man 12.0 H Band Neutrophils # 0.0 Lymphocytes # (Manual) 0.7 L Abs React Lymphs (Man) 0.0 Monocytes # (Manual) 1.0 H Eosinophils # (Manual) 0.7 H Basophils # (Manual) 0.0 Metamyelocytes # 0.0 Myelocytes # 0.0 Promyelocytes # 0.0 Blast Cells # 0.0 WBC Morphology Not Reportable Hypersegmented Neuts Not Reportable Hyposegmented Neuts Not Reportable Hypogranular Neuts Not Reportable Smudge Cells Not Reportable Toxic Granulation Not Reportable Toxic Vacuolation Not Reportable Dohle Bodies Not Reportable Pelger-Huet Anomaly Not Reportable Alaina Rods Not Reportable Platelet Estimate Appears decreased Clumped Platelets Not Reportable Plt Clumps, EDTA Not Reportable Large Platelets Rare Giant Platelets Not Reportable Platelet Satelliting Not Reportable Plt Morphology Comment Not Reportable RBC Morphology Not Reportable Dimorphic RBCs Not Reportable Polychromasia 1+ Hypochromasia Not Reportable Poikilocytosis Not Reportable Anisocytosis 1+ Microcytosis Not Reportable Macrocytosis Not Reportable Spherocytes Not Reportable Pappenheimer Bodies Not Reportable Sickle Cells Not Reportable Target Cells Not Reportable Tear Drop Cells Rare Ovalocytes Not Reportable Helmet Cells Not Reportable [place] Bodies Not Reportable [place] Rings Not Reportable [place] Cells Not Reportable Bite Cells Not Reportable Crenated Cell Not Reportable Elliptocytes Not Reportable Acanthocytes (Spur) Not Reportable Rouleaux Not Reportable Hemoglobin C Crystals Not Reportable Schistocytes Not Reportable Malaria parasites Not Reportable Daljit Bodies Not Reportable Hem Pathologist Commnt No Sodium 135 L Potassium 3.2 L Chloride 104.9 Carbon Dioxide 19 L Anion Gap 14 BUN 32 H Creatinine 0.9 Estimated GFR > 60 BUN/Creatinine Ratio 35.55 Glucose 84 POC Glucose Calcium 6.9 L Total Bilirubin 21.4 H Direct Bilirubin 17.5 H Indirect Bilirubin 3.9 AST 42 H ALT 30 Alkaline Phosphatase 178 H Total Protein 3.9 L Albumin 1.3 L Albumin/Globulin Ratio 0.5
--- NOTE | 2016-08-31 11:37 | Progress Note ---
Assessment and Plan POD 9 s/p c/s. Acute fatty liver dz of is the likely case of liver & renal impairment, anemia and low platelets. pt now appears more stable . Consider transfusion of 2 more units of prbc's to address anemia and correction of hypokalemia prior to transfer of patient. Will check with insulation power unit tender. Subjective - Subjective Date of service: 08/31/16 Principal diagnosis: Thrombocytopenia,Jaundice HELLP syndrome- more likely Acute fatty liver dz Interval history: Pt pod 9 s/p primary C/s. Current diagnosis is most likely Acute Fatty Liver disease of which explains why mother and infant both affected with signs of liver and kidney failure. pt currently improving. Able to communicate well today. Family at bed side. Pt states that she thought she had the flu and that the flu medicine caused this illness. Pt has been informed that this is very unlikely because of the fact that she and her infant were both affected and that symptoms proceed her hospitalization by about a week. Daughter stated that her mother had persistent nausea and vomiting for a week prior to presentation and that she had isolated herself from her family in order that they not contract the illness. Pt to be transferred to telemetry today pre hospitalist. Patient reports: appetite normal, pain well controlled, flatus [place]: transported Objective - Vital Signs Latest vital signs: Vital Signs Temp Pulse Pulse Resp BP Pulse Ox 08/31/16 10:01 74 112/65 08/31/16 10:00 80 18 118/66 96 08/31/16 09:00 74 20 112/65 95 08/31/16 08:02 78 19 105/54 97 08/31/16 08:00 77 15 105/54 96 08/31/16 07:58 14 97 08/31/16 07:24 63 14 112/58 97 08/31/16 07:02 71 13 111/57 97 08/31/16 07:00 68 13 112/58 97 08/31/16 06:00 71 15 111/57 96 08/31/16 05:00 75 17 114/56 96 08/31/16 04:56 75 14 106/52 97 08/31/16 04:00 69 69 16 106/52 95 08/31/16 03:00 72 17 116/56 96 08/31/16 02:00 72 14 105/56 96 08/31/16 01:00 80 19 100/58 96 08/31/16 00:00 75 75 19 113/56 97 08/30/16 23:00 76 16 113/54 95 08/30/16 22:24 73 106/63 08/30/16 22:00 70 17 106/63 96 08/30/16 21:00 68 15 117/58 96 08/30/16 20:48 97 08/30/16 20:00 66 66 14 111/67 99 08/30/16 19:00 68 16 125/73 91 08/30/16 18:22 70 20 122/71 96 08/30/16 18:00 69 20 122/71 100 08/30/16 17:30 73 18 112/66 99 08/30/16 17:00 69 22 112/66 99 08/30/16 16:30 71 18 108/64 98 08/30/16 16:00 97.4 F L 68 18 100 08/30/16 15:30 74 23 99 08/30/16 15:00 77 25 H 96 08/30/16 14:49 69 21 98 08/30/16 14:00 72 24 113/52 98 08/30/16 13:30 68 14 105/55 97 08/30/16 13:00 70 18 105/55 97 08/30/16 12:48 75 22 113/57 96 08/30/16 12:30 76 22 113/57 96 08/30/16 12:00 76 71 22 113/57 94 08/30/16 11:51 98.1 F 08/30/16 11:30 88 17 117/66 98 Intake and Output 08/30/16 08/31/16 08/31/16 22:59 06:59 14:59 Intake Total 721 813 470 Output Total 200 370 Balance 521 443 470 Intake: IV 601 633 200 D5w 1,000 ml @ 50 mls/hr 350 300 200 IV DIRECT VANESSA Rx#: [id number] Vancomycin Vial 1,250 mg 251 333 In NaCl 0.9% 250Ml 250 ml @ 166.667 mls/hr IV Q8HR VANESSA Rx#:[id number] Oral 120 180 270 Output: Urine 200 370 Indwelling Catheter 200 370 Other: Total, Intake Amount 120 120 30 Total, Output Amount 200 190 Voiding Method Indwelling Catheter Indwelling Catheter Indwelling Catheter # Voids Indwelling Catheter 100 # Bowel Movements 0 - Exam Breasts: Present: deferred Cardiovascular: Present: Regular rate, Normal S1, Normal S2 Lungs: Present: Clear to auscultation Abdomen: Present: normal appearance, soft Uterus: Present: normal, firm Extremities: Present: normal Incision: Present: normal, intact, other (Small amount of serous drainage. will remove every other staple in am.) - Labs Labs: Abnormal lab results 08/30/16 08/30/16 08/30/16 Range/Units 11:42 15:51 22:20 WBC (4.5-11.0) K/mm3 RBC (3.65-5.03) M/mm3 Hgb (10.1-14.3) gm/dl Hct (30.3-42.9) % RDW (13.2-15.2) % Plt Count (140-440) K/mm3 Seg Neuts % (Manual) (40.0-70.0) % Lymphocytes % (Manual) (13.4-35.0) % Eosinophils % (Manual) (0.0-4.3) % Nucleated RBC % (0.0-0.9) % Seg Neutrophils # Man (1.8-7.7) K/mm3 Lymphocytes # (Manual) (1.2-5.4) K/mm3 Monocytes # (Manual) (0.0-0.8) K/mm3 Eosinophils # (Manual) (0.0-0.4) K/mm3 Sodium (137-145) mmol/L Potassium (3.6-5.0) mmol/L Carbon Dioxide (22-30) mmol/L BUN (7-17) mg/dL POC Glucose 188 H 137 H 130 H (70-105) Calcium (8.4-10.2) mg/dL Total Bilirubin (0.1-1.2) mg/dL Direct Bilirubin (0-0.2) mg/dL AST (5-40) units/L Alkaline Phosphatase (35-129) units/L Total Protein (6.3-8.2) g/dL Albumin (3.9-5) g/dL 08/31/16 08/31/16 Range/Units 05:20 05:20 WBC 14.4 H (4.5-11.0) K/mm3 RBC 2.23 L (3.65-5.03) M/mm3 Hgb 7.1 L (10.1-14.3) gm/dl Hct 21.6 L (30.3-42.9) % RDW 17.2 H (13.2-15.2) % Plt Count 41 L (140-440) K/mm3 Seg Neuts % (Manual) 83.0 H (40.0-70.0) % Lymphocytes % (Manual) 5.0 L (13.4-35.0) % Eosinophils % (Manual) 5.0 H (0.0-4.3) % Nucleated RBC % 7.0 H (0.0-0.9) % Seg Neutrophils # Man 12.0 H (1.8-7.7) K/mm3 Lymphocytes # (Manual) 0.7 L (1.2-5.4) K/mm3 Monocytes # (Manual) 1.0 H (0.0-0.8) K/mm3 Eosinophils # (Manual) 0.7 H (0.0-0.4) K/mm3 Sodium 135 L (137-145) mmol/L Potassium 3.2 L (3.6-5.0) mmol/L Carbon Dioxide 19 L (22-30) mmol/L BUN 32 H (7-17) mg/dL POC Glucose (70-105) Calcium 6.9 L (8.4-10.2) mg/dL Total Bilirubin 21.4 H (0.1-1.2) mg/dL Direct Bilirubin 17.5 H (0-0.2) mg/dL AST 42 H (5-40) units/L Alkaline Phosphatase 178 H (35-129) units/L Total Protein 3.9 L (6.3-8.2) g/dL Albumin 1.3 L (3.9-5) g/dL
[2016-08-31] MEDS ORDERED: NACL 0.9% 500 ML 500 ML IV ONE (11:51)
[2016-08-31] MEDS ORDERED: K-DUR PO ONE (12:00)
[2016-09-01 06:42] LABS: Basophils % (Auto) 0.3 % (0.0-1.8); Eosinophils % (Auto) 1.1 % (0.0-4.3); Hematocrit 32.2 % (30.3-42.9); Hemoglobin 10.7 gm/dl (10.1-14.3); Mean Corpuscular HGB Conc 33 % (30-34); Mean Corpuscular Hemoglobin 32 pg (28-32); Mean Corpuscular Volume 96 fl (79-97); Red Blood Count 3.36 M/mm3 (3.65-5.03); Red Cell Distribution Width 15.7 % (13.2-15.2); White Blood Count 17.5 K/mm3 (4.5-11.0)
[2016-09-01 06:59] LABS: Alanine Aminotransferase 26 units/L (7-56); Albumin 1.4 g/dL (3.9-5); Albumin/Globulin Ratio 0.5 %; Alkaline Phosphatase 187 units/L (35-129); Anion Gap 15 mmol/L; BUN/Creatinine Ratio 32.22; Bilirubin,Total 22.1 mg/dL (0.1-1.2); Blood Urea Nitrogen 29 mg/dL (7-17); Calcium 7.2 mg/dL (8.4-10.2); Carbon Dioxide 17 mmol/L (22-30); Chloride 108.3 mmol/L (98-107); Glucose 78 mg/dL (65-100); Potassium 4.1 mmol/L (3.6-5.0); Sodium 136 mmol/L (137-145); Total Protein 4.2 g/dL (6.3-8.2)
[2016-09-01 07:01] LABS: INR 1.27 (0.87-1.13)
[2016-09-01 07:14] LABS: Platelet Count 52 K/mm3 (140-440)
[2016-09-01 07:23] LABS: Bilirubin,Direct 17.2 mg/dL (0-0.2); Bilirubin,Indirect 4.9 mg/dL
--- NOTE | 2016-09-01 09:27 | Hem/Onc Progress Note ---
Assessment and Plan Bilirubin still up. CBC improved with transfusion. Continue supportive care. Clinically seems to be improving though. Subjective Date of service: 09/01/16 Interval history: Patient looks better. sTill weak. Off of all anti-biotics now. Received packed RBCs yesterday. Wants to go home. Complains of some abdominal pain today. Objective - Exam Narrative Exam: Icteric - Constitutional Vitals: Last Vital Signs Temp 98.9 F 09/01/16 05:00 Pulse 78 09/01/16 08:42 Resp 18 09/01/16 08:42 BP 130/70 09/01/16 08:42 Pulse Ox 98 09/01/16 08:42 Performance status: 3-limited selfcare - Respiratory Respiratory: bilateral: diminished - Cardiovascular Rhythm: regular Extremities: abnormal (icteric) - Gastrointestinal General gastrointestinal: Present: soft, distended - Labs Lab Results: Laboratory Results - last 24 hr 08/31/16 08/31/16 08/31/16 08:17 11:49 12:15 WBC RBC Hgb Hct MCV MCH MCHC RDW Plt Count Lymph % (Auto) [place] % (Auto) Eos % (Auto) Baso % (Auto) Lymph # [place] # Eos # Baso # Seg Neutrophils % Seg Neutrophils # PT INR Sodium Potassium Chloride Carbon Dioxide Anion Gap BUN Creatinine Estimated GFR BUN/Creatinine Ratio Glucose POC Glucose 90 118 H Calcium Total Bilirubin Direct Bilirubin Indirect Bilirubin AST ALT Alkaline Phosphatase Total Protein Albumin Albumin/Globulin Ratio Blood Type O NEGATIVE Antibody Screen Positive Antibody Identification Anti-D (Passively Aquired) Crossmatch See Detail 08/31/16 08/31/16 09/01/16 16:19 21:29 06:08 WBC 17.5 H RBC 3.36 L Hgb 10.7 D Hct 32.2 D MCV 96 MCH 32 MCHC 33 RDW 15.7 H Plt Count 52 L Lymph % (Auto) 7.5 L [place] % (Auto) 4.1 Eos % (Auto) 1.1 Baso % (Auto) 0.3 Lymph # 1.3 [place] # 0.7 Eos # 0.2 Baso # 0.1 Seg Neutrophils % 87.0 H Seg Neutrophils # 15.2 H PT INR Sodium Potassium Chloride Carbon Dioxide Anion Gap BUN Creatinine Estimated GFR BUN/Creatinine Ratio Glucose POC Glucose 110 H 110 H Calcium Total Bilirubin Direct Bilirubin Indirect Bilirubin AST ALT Alkaline Phosphatase Total Protein Albumin Albumin/Globulin Ratio Blood Type Antibody Screen Antibody Identification Crossmatch 09/01/16 09/01/16 06:08 06:08 WBC RBC Hgb Hct MCV MCH MCHC RDW Plt Count Lymph % (Auto) [place] % (Auto) Eos % (Auto) Baso % (Auto) Lymph # [place] # Eos # Baso # Seg Neutrophils % Seg Neutrophils # PT 15.8 H INR 1.27 H Sodium 136 L Potassium 4.1 D Chloride 108.3 H Carbon Dioxide 17 L Anion Gap 15 BUN 29 H Creatinine 0.9 Estimated GFR > 60 BUN/Creatinine Ratio 32.22 Glucose 78 POC Glucose Calcium 7.2 L Total Bilirubin 22.1 H Direct Bilirubin 17.2 H Indirect Bilirubin 4.9 AST 37 ALT 26 Alkaline Phosphatase 187 H Total Protein 4.2 L Albumin 1.4 L Albumin/Globulin Ratio 0.5 Blood Type Antibody Screen Antibody Identification Crossmatch
--- NOTE | 2016-09-01 10:03 | Progress Note ---
Assessment and Plan Current antibiotics: None Previous antibiotics: Vancomycin IV ( 08/28 - 08/30) Levaquin 750 mg IV q24h 08/28-08/30 Zosyn 2.25 g IV every 6 hours (08/23-08/25) Tamiflu (75 mg po 08/22) Immunosuppressants: Solu-Medrol 20 mg IV 1 ( 08/27) Health maintenance record: HIV negative Hepatitis A, B, C negative Toxoplasma IgM negative Rubella IgG positive (immune) Parvovirus B19 IgM negative, IgG positive (past exposure) Rh- ASSESSMENT: Ms Lopez is a 41-year-old female without known chronic medical problems who was admitted to [facility] on 08/22/16 with flulike symptoms in association with 31.2 weeks IUP. She developed evidence of non-reassuring FHR requiring emergent low segment transverse and is now seen with possible sepsis in association with progressive liver failure & possible HELLP syndrome. Problem list: 1. Sepsis syndrome with marked leukocytosis and acidosis - R/O aspiration - R/O UTI - R/O biliary sepsis - R/O viral syndrome -Rule out all secondary to primary problem without infection -Work up with no evidence of active infection -Stable off antibiotics. 2. HELLP syndrome (hemolysis, elevated liver enzymes, thrombocytopenia) -Clinically improving -Marked hyperbilirubinemia with improved transaminase levels. 3. Anemia - Acute/ anemia of - s/p PRBCs x 4 4. Coagulopathy secondary to above - s/p 2 units FFP 5. SHAUNA - Improved 6. s/p 32 WK IUP- s/p 08/22 PLAN: 1. Following off antibiotics. 2. Continued close observation and support 3. Follow lab Subjective Date of service: 09/01/16 Principal diagnosis: Thrombocytopenia,Jaundice HELLP syndrome- more likely Acute fatty liver dz Interval history: Patient complains of back pain. No other reported events overnight. Objective - Exam Narrative Exam: Jaundiced. Looks improved in general. HEENT: Pupils are equal reactive to light and accommodation. Sclerael icterus. Oropharynx is normal with no evidence of oral candidiasis or pharyngitis. NECK: Supple. No enlargement of the thyroid gland. No significant cervical lymphadenopathy. No jugular venous distention at 30. LUNGS: Clear with slight diminished breath sounds at bases. HEART: RRR. There are no murmurs, gallops, clicks or rubs heard. ABDOMEN: Soft. Mild right upper quadrant point tenderness.. Liver and spleen are not palpably enlarged or tender. No palpable masses. Bowel sounds are normoactive. Ascites is not appreciated. EXTREMITIES: 1+ generalized edema. IV dressings sites are clean. SKIN: No other rash, ulcers or wounds. NEUROLOGIC: No focal findings. - Constitutional Vitals: Vital Signs Temp Pulse Resp BP Pulse Ox 98.9 F 78 18 130/70 98 09/01/16 05:00 09/01/16 08:42 09/01/16 08:42 09/01/16 08:42 09/01/16 08:42 Temperature -Last 24 Hours Temperature 98.9 F Temperature 98.9 F Temperature 98.0 F Temperature 98 F Temperature 98.3 F Temperature 98.1 F Temperature 98.2 F Temperature 97.7 F Temperature 97.7 F Temperature 98.8 F Temperature 98.3 F Temperature 97.6 F Temperature 97.4 F - Labs CBC & Chem 7: 09/01/16 06:08 09/01/16 06:08 Labs: Abnormal lab results 08/31/16 08/31/16 08/31/16 Range/Units 11:49 12:15 16:19 WBC (4.5-11.0) K/mm3 RBC (3.65-5.03) M/mm3 RDW (13.2-15.2) % Plt Count (140-440) K/mm3 Lymph % (Auto) (13.4-35.0) % Seg Neutrophils % (40.0-70.0) % Seg Neutrophils # (1.8-7.7) K/mm3 PT (12.2-14.9) Sec. INR (0.87-1.13) Sodium (137-145) mmol/L Chloride (98-107) mmol/L Carbon Dioxide (22-30) mmol/L BUN (7-17) mg/dL POC Glucose 118 H 110 H (70-105) Calcium (8.4-10.2) mg/dL Total Bilirubin (0.1-1.2) mg/dL Direct Bilirubin (0-0.2) mg/dL Alkaline Phosphatase (35-129) units/L Total Protein (6.3-8.2) g/dL Albumin (3.9-5) g/dL Crossmatch See Detail 08/31/16 09/01/16 09/01/16 Range/Units 21:29 06:08 06:08 WBC 17.5 H (4.5-11.0) K/mm3 RBC 3.36 L (3.65-5.03) M/mm3 RDW 15.7 H (13.2-15.2) % Plt Count 52 L (140-440) K/mm3 Lymph % (Auto) 7.5 L (13.4-35.0) % Seg Neutrophils % 87.0 H (40.0-70.0) % Seg Neutrophils # 15.2 H (1.8-7.7) K/mm3 PT (12.2-14.9) Sec. INR (0.87-1.13) Sodium 136 L (137-145) mmol/L Chloride 108.3 H (98-107) mmol/L Carbon Dioxide 17 L (22-30) mmol/L BUN 29 H (7-17) mg/dL POC Glucose 110 H (70-105) Calcium 7.2 L (8.4-10.2) mg/dL Total Bilirubin 22.1 H (0.1-1.2) mg/dL Direct Bilirubin 17.2 H (0-0.2) mg/dL Alkaline Phosphatase 187 H (35-129) units/L Total Protein 4.2 L (6.3-8.2) g/dL Albumin 1.4 L (3.9-5) g/dL Crossmatch 09/01/16 Range/Units 06:08 WBC (4.5-11.0) K/mm3 RBC (3.65-5.03) M/mm3 RDW (13.2-15.2) % Plt Count (140-440) K/mm3 Lymph % (Auto) (13.4-35.0) % Seg Neutrophils % (40.0-70.0) % Seg Neutrophils # (1.8-7.7) K/mm3 PT 15.8 H (12.2-14.9) Sec. INR 1.27 H (0.87-1.13) Sodium (137-145) mmol/L Chloride (98-107) mmol/L Carbon Dioxide (22-30) mmol/L BUN (7-17) mg/dL POC Glucose (70-105) Calcium (8.4-10.2) mg/dL Total Bilirubin (0.1-1.2) mg/dL Direct Bilirubin (0-0.2) mg/dL Alkaline Phosphatase (35-129) units/L Total Protein (6.3-8.2) g/dL Albumin (3.9-5) g/dL Crossmatch
--- NOTE | 2016-09-01 10:37 | Progress Note ---
Assessment and Plan POD 10 s/p emergent c/s, improving liver and renal function. Advance diet, out of bed today. Ice pack to perineum. Subjective - Subjective Date of service: 09/01/16 Principal diagnosis: Thrombocytopenia,Jaundice HELLP syndrome- more likely Acute fatty liver dz Interval history: Pt pod 10 s/p primary c/s. Improving liver and renal functions. H & H improved since last transfusion of two units of PRBCs. Pt current on telemetry unit. pt admits to flatus and loose stool today. diet advanced. Jaundice is improved. Will encourage out of bed today with assistance. Patient reports: appetite normal, flatus, bowel movement, pain poorly controlled [place]: transported Objective - Vital Signs Latest vital signs: Vital Signs Temp Pulse Pulse Pulse Resp BP BP 09/01/16 08:42 78 18 130/70 09/01/16 07:49 09/01/16 05:00 98.9 F 72 18 110/56 08/31/16 22:00 08/31/16 21:47 74 128/76 08/31/16 21:23 98.9 F 74 16 128/86 08/31/16 21:00 74 127/86 08/31/16 19:29 82 18 08/31/16 19:10 98.0 F 71 16 123/75 08/31/16 19:00 72 18 125/75 08/31/16 18:48 67 14 118/71 08/31/16 18:25 98 F 70 18 124/79 08/31/16 18:10 98.3 F 71 18 120/78 08/31/16 18:08 72 16 120/78 08/31/16 18:00 74 20 120/78 08/31/16 17:27 98.1 F 74 19 123/75 08/31/16 17:00 75 18 122/70 08/31/16 16:57 98.2 F 80 15 122/70 08/31/16 16:27 97.7 F 79 16 115/64 08/31/16 16:00 97.7 F 76 12 127/61 08/31/16 15:57 98.8 F 71 12 127/61 08/31/16 15:27 98.3 F 67 16 115/64 08/31/16 15:14 08/31/16 15:12 97.6 F 73 20 116/64 08/31/16 15:08 71 18 116/64 08/31/16 15:05 75 16 116/64 08/31/16 15:00 71 20 116/64 08/31/16 14:50 77 08/31/16 14:40 75 20 109/59 08/31/16 14:18 70 17 113/61 08/31/16 14:00 68 15 109/59 08/31/16 13:00 76 18 113/61 08/31/16 12:00 97.4 F L 71 14 105/68 08/31/16 11:42 71 17 123/56 08/31/16 11:00 77 16 123/56 Pulse Ox 09/01/16 08:42 98 09/01/16 07:49 97 09/01/16 05:00 97 08/31/16 22:00 98 08/31/16 21:47 08/31/16 21:23 08/31/16 21:00 08/31/16 19:29 97 08/31/16 19:10 97 08/31/16 19:00 99 08/31/16 18:48 98 08/31/16 18:25 98 08/31/16 18:10 98 08/31/16 18:08 98 08/31/16 18:00 96 08/31/16 17:27 96 08/31/16 17:00 95 08/31/16 16:57 98 08/31/16 16:27 97 08/31/16 16:00 96 08/31/16 15:57 98 08/31/16 15:27 98 08/31/16 15:14 98 08/31/16 15:12 98 08/31/16 15:08 98 08/31/16 15:05 98 08/31/16 15:00 96 08/31/16 14:50 08/31/16 14:40 97 08/31/16 14:18 98 08/31/16 14:00 97 08/31/16 13:00 96 08/31/16 12:00 97 08/31/16 11:42 98 08/31/16 11:00 97 Intake and Output 08/31/16 09/01/16 09/01/16 22:59 06:59 14:59 Intake Total 755 Output Total 600 800 Balance 155 -800 Intake: IV 200 NaCl 0.9% 500 ml 500 ml @ 200 As Directed IV ONCE ONE Rx#:[id number] Oral 180 Blood Product 375 Leukoreduced Red Blood 250 Cells Unit [id number] Leukoreduced Red Blood 0 Cells Unit [id number] Output: Urine 600 800 Indwelling Catheter 600 800 Other: Intake, Other Source Leukoreduced Red Blood Saline Solution Cells Unit [id number] Total, Intake Amount 125 Total, Output Amount 50 800 Voiding Method Indwelling Catheter # Bowel Movements 1 1 Weight 80 kg 82.2 kg Patient Weight 09/02/16 06:59 Weight 82.2 kg - Exam Breasts: Present: deferred Cardiovascular: Present: Regular rate, Normal S1, Normal S2 Lungs: Present: Clear to auscultation Abdomen: Present: normal appearance, other (justyn removed- steri strips placed. small amount of drainage noted. no signs of infection. ) Vulva: both: normal (edema noted left greater than right. ) Uterus: Present: normal, firm Extremities: Present: edema (bilaterally) Incision: Present: normal, dry, intact - Labs Labs: Abnormal lab results 08/31/16 08/31/16 08/31/16 Range/Units 11:49 12:15 16:19 WBC (4.5-11.0) K/mm3 RBC (3.65-5.03) M/mm3 RDW (13.2-15.2) % Plt Count (140-440) K/mm3 Lymph % (Auto) (13.4-35.0) % Seg Neutrophils % (40.0-70.0) % Seg Neutrophils # (1.8-7.7) K/mm3 PT (12.2-14.9) Sec. INR (0.87-1.13) Sodium (137-145) mmol/L Chloride (98-107) mmol/L Carbon Dioxide (22-30) mmol/L BUN (7-17) mg/dL POC Glucose 118 H 110 H (70-105) Calcium (8.4-10.2) mg/dL Total Bilirubin (0.1-1.2) mg/dL Direct Bilirubin (0-0.2) mg/dL Alkaline Phosphatase (35-129) units/L Total Protein (6.3-8.2) g/dL Albumin (3.9-5) g/dL Crossmatch See Detail 08/31/16 09/01/16 09/01/16 Range/Units 21:29 06:08 06:08 WBC 17.5 H (4.5-11.0) K/mm3 RBC 3.36 L (3.65-5.03) M/mm3 RDW 15.7 H (13.2-15.2) % Plt Count 52 L (140-440) K/mm3 Lymph % (Auto) 7.5 L (13.4-35.0) % Seg Neutrophils % 87.0 H (40.0-70.0) % Seg Neutrophils # 15.2 H (1.8-7.7) K/mm3 PT (12.2-14.9) Sec. INR (0.87-1.13) Sodium 136 L (137-145) mmol/L Chloride 108.3 H (98-107) mmol/L Carbon Dioxide 17 L (22-30) mmol/L BUN 29 H (7-17) mg/dL POC Glucose 110 H (70-105) Calcium 7.2 L (8.4-10.2) mg/dL Total Bilirubin 22.1 H (0.1-1.2) mg/dL Direct Bilirubin 17.2 H (0-0.2) mg/dL Alkaline Phosphatase 187 H (35-129) units/L Total Protein 4.2 L (6.3-8.2) g/dL Albumin 1.4 L (3.9-5) g/dL Crossmatch 09/01/16 Range/Units 06:08 WBC (4.5-11.0) K/mm3 RBC (3.65-5.03) M/mm3 RDW (13.2-15.2) % Plt Count (140-440) K/mm3 Lymph % (Auto) (13.4-35.0) % Seg Neutrophils % (40.0-70.0) % Seg Neutrophils # (1.8-7.7) K/mm3 PT 15.8 H (12.2-14.9) Sec. INR 1.27 H (0.87-1.13) Sodium (137-145) mmol/L Chloride (98-107) mmol/L Carbon Dioxide (22-30) mmol/L BUN (7-17) mg/dL POC Glucose (70-105) Calcium (8.4-10.2) mg/dL Total Bilirubin (0.1-1.2) mg/dL Direct Bilirubin (0-0.2) mg/dL Alkaline Phosphatase (35-129) units/L Total Protein (6.3-8.2) g/dL Albumin (3.9-5) g/dL Crossmatch
[2016-09-01] MEDS: NORMODYNE PO SCH ×2 (10:50→21:37)
[2016-09-01] MEDS: MYLICON PO PRN ×2 (11:58→21:37)
--- NOTE | 2016-09-01 15:42 | Gastroenterology Progress Note ---
Assessment and Plan 1. HELLP Syndrome-Elevated Liver enzymes Stable over night. Labs essentially unchanged. Continue to monitor closely. May take extended period of time to see decrease in TB. Subjective Date of service: 09/01/16 Principal diagnosis: Thrombocytopenia,Jaundice HELLP syndrome- more likely Acute fatty liver dz Interval history: Family at bedside, no acute changes overnight. Objective - Constitutional Vitals: Temp Pulse Resp BP Pulse Ox 97.7 F 64 18 117/66 98 09/01/16 12:28 09/01/16 12:28 09/01/16 12:28 09/01/16 12:28 09/01/16 12:28 General appearance: no acute distress - EENT Eyes: EOM intact, scleral icterus ENT: hearing intact - Cardiovascular Rhythm: regular - Gastrointestinal General gastrointestinal: Present: soft, tender, normal bowel sounds, other ( low transverse incision/D/I) - Integumentary Integumentary: Present: warm, dry, jaundice - Neurologic Neurological: alert and oriented x3 - Labs CBC & Chem 7: 09/01/16 06:08 09/01/16 06:08 Labs: Laboratory Results - last 24 hr 08/31/16 08/31/16 08/31/16 12:15 16:19 21:29 WBC RBC Hgb Hct MCV MCH MCHC RDW Plt Count Lymph % (Auto) Craig % (Auto) Eos % (Auto) Baso % (Auto) Lymph # Craig # Eos # Baso # Seg Neutrophils % Seg Neutrophils # PT INR Sodium Potassium Chloride Carbon Dioxide Anion Gap BUN Creatinine Estimated GFR BUN/Creatinine Ratio Glucose POC Glucose 110 H 110 H Calcium Total Bilirubin Direct Bilirubin Indirect Bilirubin AST ALT Alkaline Phosphatase Total Protein Albumin Albumin/Globulin Ratio Blood Type O NEGATIVE Antibody Screen Positive Antibody Identification Anti-D (Passively Aquired) Crossmatch See Detail 09/01/16 09/01/16 09/01/16 06:08 06:08 06:08 WBC 17.5 H RBC 3.36 L Hgb 10.7 D Hct 32.2 D MCV 96 MCH 32 MCHC 33 RDW 15.7 H Plt Count 52 L Lymph % (Auto) 7.5 L Craig % (Auto) 4.1 Eos % (Auto) 1.1 Baso % (Auto) 0.3 Lymph # 1.3 Craig # 0.7 Eos # 0.2 Baso # 0.1 Seg Neutrophils % 87.0 H Seg Neutrophils # 15.2 H PT 15.8 H INR 1.27 H Sodium 136 L Potassium 4.1 D Chloride 108.3 H Carbon Dioxide 17 L Anion Gap 15 BUN 29 H Creatinine 0.9 Estimated GFR > 60 BUN/Creatinine Ratio 32.22 Glucose 78 POC Glucose Calcium 7.2 L Total Bilirubin 22.1 H Direct Bilirubin 17.2 H Indirect Bilirubin 4.9 AST 37 ALT 26 Alkaline Phosphatase 187 H Total Protein 4.2 L Albumin 1.4 L Albumin/Globulin Ratio 0.5 Blood Type Antibody Screen Antibody Identification Crossmatch 09/01/16 09/01/16 08:27 14:25 WBC RBC Hgb Hct MCV MCH MCHC RDW Plt Count Lymph % (Auto) Craig % (Auto) Eos % (Auto) Baso % (Auto) Lymph # Craig # Eos # Baso # Seg Neutrophils % Seg Neutrophils # PT INR Sodium Potassium Chloride Carbon Dioxide Anion Gap BUN Creatinine Estimated GFR BUN/Creatinine Ratio Glucose POC Glucose 71 109 H Calcium Total Bilirubin Direct Bilirubin Indirect Bilirubin AST ALT Alkaline Phosphatase Total Protein Albumin Albumin/Globulin Ratio Blood Type Antibody Screen Antibody Identification Crossmatch
--- NOTE | 2016-09-01 19:21 | Progress Note ---
Assessment and Plan Assessment and plan: 1. HELLP syndrome - baby delivered through ; supportive care; s/p transfusion PRBC, FFP; monitoring LFTs and platelets 2. SIRS - sepsis suspected, but no evidence of infection; antibiotics discontinued 3. Anemia - combination of anemia/blood loss/hemolytic anemia duie to HELLP; s/p total of 6 units PRBCs; continue to monitor H&H 4. Thrombocytopenia - secondary to HELLP; monitoring 5. Coagulopathy - sec to HELLP; received 2 units FFP 6. Acute kidney injury - Cr trended down with ivf 7. Hyperkalemia - medically treated, resolved 8. Acute encephalopathy - likely secondary to HELLP; resolved 9. Malnutrition - dietitian consulted for supplementation 10. S/p 08/13/16 History Interval history: multiple family members at bedsite, one translating c/o low abd pain Hospitalist Physical - Constitutional Vitals: Temp Pulse Resp BP Pulse Ox 97.7 F 66 18 112/60 98 09/01/16 12:28 09/01/16 17:34 09/01/16 17:34 09/01/16 17:34 09/01/16 17:34 General appearance: Present: no acute distress, well-nourished - EENT Eyes: Present: PERRL, EOM intact, scleral icterus. Absent: conjunctival injection - Neck Neck: Present: supple, normal ROM. Absent: masses or JVD - Respiratory Respiratory effort: normal Respiratory: bilateral: CTA, negative: rales, rhonchi, wheezing - Cardiovascular Rhythm: regular Heart Sounds: Present: S1 & S2. Absent: systolic murmur - Extremities Extremities: no ischemia Extremity abnormal: edema - Abdominal General gastrointestinal: soft, tender, distended (peripartum), normal bowel sounds Localized gastrointestinal: tender: suprapubic - Integumentary Integumentary: Present: warm, dry, jaundice. Absent: rash - Psychiatric Psychiatric: cooperative - Neurologic Neurologic: CNII-XII intact, no focal deficits Results - Labs CBC & Chem 7: 09/03/16 05:19 09/03/16 05:19 Labs: Laboratory Last Values WBC 17.5 K/mm3 (4.5-11.0) H 09/01/16 06:08 RBC 3.36 M/mm3 (3.65-5.03) L 09/01/16 06:08 Hgb 10.7 gm/dl (10.1-14.3) D 09/01/16 06:08 Hct 32.2 % (30.3-42.9) D 09/01/16 06:08 MCV 96 fl (79-97) 09/01/16 06:08 MCH 32 pg (28-32) 09/01/16 06:08 MCHC 33 % (30-34) 09/01/16 06:08 RDW 15.7 % (13.2-15.2) H 09/01/16 06:08 Plt Count 52 K/mm3 (140-440) L 09/01/16 06:08 Lymph % (Auto) 7.5 % (13.4-35.0) L 09/01/16 06:08 [place] % (Auto) 4.1 % (0.0-7.3) 09/01/16 06:08 Eos % (Auto) 1.1 % (0.0-4.3) 09/01/16 06:08 Baso % (Auto) 0.3 % (0.0-1.8) 09/01/16 06:08 Lymph # 1.3 K/mm3 (1.2-5.4) 09/01/16 06:08 [place] # 0.7 K/mm3 (0.0-0.8) 09/01/16 06:08 Eos # 0.2 K/mm3 (0.0-0.4) 09/01/16 06:08 Baso # 0.1 K/mm3 (0.0-0.1) 09/01/16 06:08 Add Manual Diff Complete 08/31/16 05:20 Total Counted 100 08/31/16 05:20 Seg Neutrophils % 87.0 % (40.0-70.0) H 09/01/16 06:08 Seg Neuts % (Manual) 83.0 % (40.0-70.0) H 08/31/16 05:20 Band Neutrophils % 0 % 08/31/16 05:20 Lymphocytes % (Manual) 5.0 % (13.4-35.0) L 08/31/16 05:20 Reactive Lymphs % (Man) 0 % 08/31/16 05:20 Monocytes % (Manual) 7.0 % (0.0-7.3) 08/31/16 05:20 Eosinophils % (Manual) 5.0 % (0.0-4.3) H 08/31/16 05:20 Basophils % (Manual) 0 % (0.0-1.8) 08/31/16 05:20 Metamyelocytes % 0 % 08/31/16 05:20 Myelocytes % 0 % 08/31/16 05:20 Promyelocytes % 0 % 08/31/16 05:20 Blast Cells % 0 % 08/31/16 05:20 Nucleated RBC % 7.0 % (0.0-0.9) H 08/31/16 05:20 Seg Neutrophils # 15.2 K/mm3 (1.8-7.7) H 09/01/16 06:08 Seg Neutrophils # Man 12.0 K/mm3 (1.8-7.7) H 08/31/16 05:20 Band Neutrophils # 0.0 K/mm3 08/31/16 05:20 Lymphocytes # (Manual) 0.7 K/mm3 (1.2-5.4) L 08/31/16 05:20 Abs React Lymphs (Man) 0.0 K/mm3 08/31/16 05:20 Monocytes # (Manual) 1.0 K/mm3 (0.0-0.8) H 08/31/16 05:20 Eosinophils # (Manual) 0.7 K/mm3 (0.0-0.4) H 08/31/16 05:20 Basophils # (Manual) 0.0 K/mm3 (0.0-0.1) 08/31/16 05:20 Metamyelocytes # 0.0 K/mm3 08/31/16 05:20 Myelocytes # 0.0 K/mm3 08/31/16 05:20 Promyelocytes # 0.0 K/mm3 08/31/16 05:20 Blast Cells # 0.0 K/mm3 08/31/16 05:20 WBC Morphology Not Reportable 08/31/16 05:20 Hypersegmented Neuts Not Reportable 08/31/16 05:20 Hyposegmented Neuts Not Reportable 08/31/16 05:20 Hypogranular Neuts Not Reportable 08/31/16 05:20 Smudge Cells Not Reportable 08/31/16 05:20 Toxic Granulation Not Reportable 08/31/16 05:20 Toxic Vacuolation Not Reportable 08/31/16 05:20 Dohle Bodies Not Reportable 08/31/16 05:20 Pelger-Huet Anomaly Not Reportable 08/31/16 05:20 Alaina Rods Not Reportable 08/31/16 05:20 Platelet Estimate Appears decreased 08/31/16 05:20 Clumped Platelets Not Reportable 08/31/16 05:20 Plt Clumps, EDTA Not Reportable 08/31/16 05:20 Large Platelets Rare 08/31/16 05:20 Giant Platelets Not Reportable 08/31/16 05:20 Platelet Satelliting Not Reportable 08/31/16 05:20 Plt Morphology Comment Not Reportable 08/31/16 05:20 RBC Morphology Not Reportable 08/31/16 05:20 Dimorphic RBCs Not Reportable 08/31/16 05:20 Polychromasia 1+ 08/31/16 05:20 Hypochromasia Not Reportable 08/31/16 05:20 Poikilocytosis Not Reportable 08/31/16 05:20 Anisocytosis 1+ 08/31/16 05:20 Microcytosis Not Reportable 08/31/16 05:20 Macrocytosis Not Reportable 08/31/16 05:20 Spherocytes Not Reportable 08/31/16 05:20 Pappenheimer Bodies Not Reportable 08/31/16 05:20 Sickle Cells Not Reportable 08/31/16 05:20 Target Cells Not Reportable 08/31/16 05:20 Tear Drop Cells Rare 08/31/16 05:20 Ovalocytes Not Reportable 08/31/16 05:20 Helmet Cells Not Reportable 08/31/16 05:20 Whittaker-Merrifield Bodies Not Reportable 08/31/16 05:20 [place] Rings Not Reportable 08/31/16 05:20 [place] Cells Not Reportable 08/31/16 05:20 Bite Cells Not Reportable 08/31/16 05:20 Crenated Cell Not Reportable 08/31/16 05:20 Elliptocytes Not Reportable 08/31/16 05:20 Acanthocytes (Spur) Not Reportable 08/31/16 05:20 Rouleaux Not Reportable 08/31/16 05:20 Hemoglobin C Crystals Not Reportable 08/31/16 05:20 Schistocytes Not Reportable 08/31/16 05:20 Malaria parasites Not Reportable 08/31/16 05:20 Percent Retic 6.59 % (0.78-2.58) H 08/27/16 11:15 Sickle Cell Screen Negative (Negative) 08/22/16 18:48 Daljit Bodies Not Reportable 08/31/16 05:20 Haptoglobin <15 mg/dL (43-212) L 08/27/16 11:15 Hem Pathologist Commnt No 08/31/16 05:20 PT 15.8 Sec. (12.2-14.9) H 09/01/16 06:08 INR 1.27 (0.87-1.13) H 09/01/16 06:08 APTT 42.3 Sec. (24.2-36.6) H 08/25/16 05:45 POC ABG pH 7.479 (7.35-7.45) H 08/24/16 14:12 POC ABG pCO2 29.6 (35-45) L 08/24/16 14:12 POC ABG pO2 62 (80-105) L 08/24/16 14:12 POC ABG HCO3 21.9 08/24/16 14:12 POC ABG Total CO2 23 08/24/16 14:12 POC ABG O2 Sat 93 08/24/16 14:12 POC ABG Base Excess -2 08/24/16 14:12 FiO2 3 % 08/24/16 14:12 Sodium 136 mmol/L (137-145) L 09/01/16 06:08 Potassium 4.1 mmol/L (3.6-5.0) D 09/01/16 06:08 Chloride 108.3 mmol/L (98-107) H 09/01/16 06:08 Carbon Dioxide 17 mmol/L (22-30) L 09/01/16 06:08 Anion Gap 15 mmol/L 09/01/16 06:08 BUN 29 mg/dL (7-17) H 09/01/16 06:08 Creatinine 0.9 mg/dL (0.7-1.2) 09/01/16 06:08 Estimated GFR > 60 ml/min 09/01/16 06:08 BUN/Creatinine Ratio 32.22 % 09/01/16 06:08 Glucose 78 mg/dL (65-100) 09/01/16 06:08 POC Glucose 111 (70-105) H 09/01/16 16:19 Lactic Acid 2.0 mmol/L (0.7-2.0) 08/29/16 04:30 Calcium 7.2 mg/dL (8.4-10.2) L 09/01/16 06:08 Magnesium 4.5 mg/dL (1.7-2.3) H 08/26/16 04:50 Total Bilirubin 22.1 mg/dL (0.1-1.2) H 09/01/16 06:08 Direct Bilirubin 17.2 mg/dL (0-0.2) H 09/01/16 06:08 Indirect Bilirubin 4.9 mg/dL 09/01/16 06:08 AST 37 units/L (5-40) 09/01/16 06:08 ALT 26 units/L (7-56) 09/01/16 06:08 Alkaline Phosphatase 187 units/L (35-129) H 09/01/16 06:08 Ammonia 44.0 umol/L (25-60) 08/30/16 05:40 Lactate Dehydrogenase 844 units/L (91-180) H 08/27/16 08:40 Total Creatine Kinase 1295 units/L (30-135) H 08/24/16 05:00 NT-Pro-B Natriuret Pep 241.0 pg/mL (0-450) 08/27/16 16:30 Total Protein 4.2 g/dL (6.3-8.2) L 09/01/16 06:08 Albumin 1.4 g/dL (3.9-5) L 09/01/16 06:08 Albumin/Globulin Ratio 0.5 % 09/01/16 06:08 LDL Cholesterol Direct 38 mg/dL (50-130) L 08/23/16 07:50 Vitamin B12 > 2000 pg/mL (211-911) H 08/27/16 11:15 Folate 10.54 ng/mL (7.3-26.0) 08/27/16 11:15 Urine Color [place] (Yellow) 08/27/16 15:20 Urine Turbidity Clear (Clear) 08/27/16 15:20 Urine pH 6.0 (5.0-7.0) 08/27/16 15:20 Ur Specific [place] 1.018 (1.003-1.030) 08/27/16 15:20 Urine Protein 30 mg/dl mg/dL (Negative) 08/27/16 15:20 Urine Glucose (UA) Neg mg/dL (Negative) 08/27/16 15:20 Urine Ketones Neg mg/dL (Negative) 08/27/16 15:20 Urine Blood Mod (Negative) 08/27/16 15:20 Urine Nitrite Neg (Negative) 08/27/16 15:20 Urine Bilirubin Mod (Negative) 08/27/16 15:20 Urine Ictotest Positive (Negative) 08/27/16 15:20 Urine Urobilinogen 4.0 mg/dL (<2.0) 08/27/16 15:20 Ur Leukocyte Esterase Neg (Negative) 08/27/16 15:20 Urine WBC (Auto) 10.0 /HPF (0.0-6.0) H 08/27/16 15:20 Urine RBC (Auto) 7.0 /HPF (0.0-6.0) 08/27/16 15:20 U Epithel Cells (Auto) < 1.0 /HPF (0-13.0) 08/27/16 15:20 Granular Casts 4 /LPF 08/27/16 15:20 Urine Mucus Few /HPF 08/27/16 15:20 Urine Opiates Screen Presumptive negative 08/22/16 18:30 Urine Methadone Screen Presumptive negative 08/22/16 18:30 Ur Barbiturates Screen Presumptive negative 08/22/16 18:30 Ur Phencyclidine Scrn Presumptive negative 08/22/16 18:30 Ur Amphetamines Screen Presumptive negative 08/22/16 18:30 U Benzodiazepines Scrn Presumptive negative 08/22/16 18:30 Urine Cocaine Screen Presumptive negative 08/22/16 18:30 U Marijuana (THC) Screen Presumptive negative 08/22/16 18:30 Drugs of Abuse Note Disclamer 08/22/16 18:30 RPR Nonreactive (Nonreactive) 08/22/16 18:34 CMV IgG Ab 2.92 (<=0.90) H 08/22/16 18:34 CMV IgM Ab <0.2 (()) 08/22/16 18:34 CMV DNA PCR log telescope operator/mL See scanned report 08/23/16 13:03 Hepatitis A IgM Ab -1 (NonReactive) 08/27/16 11:15 Hep Bs Antigen Non-reactive (Negative) 08/22/16 18:34 Hepatitis C Antibody Non-reactive (NonReactive) 08/22/16 18:34 Herpes Simplex Source Swab (()) 08/25/16 11:45 HSV I DNA PCR Not detected (Not Detected) 08/25/16 11:45 HSV II DNA PCR Not detected (Not Detected) 08/25/16 11:45 HIV 1&2 Antibody Rapid Non react (Non React) 08/23/16 09:25 HIV P24 Antigen Non react (Non React) 08/23/16 09:25 Rubella IgG Antibody Immune (Immune) 08/22/16 18:34 Rubella IgM Antibody <0.90 (<0.90) 08/22/16 18:34 Schistocytes Smear Rare 08/26/16 04:50 Toxoplasma IgG Ab <=0.90 (<=0.90) 08/22/16 18:34 Toxoplasma IgM Ab Negative (Negative) 08/22/16 18:34 Miscellaneous Test Flexitest 1 (()) H 08/22/16 18:54 Blood Type O NEGATIVE 08/31/16 12:15 Antibody Screen Positive 08/31/16 12:15 Antibody Identification Anti-D (Passively Aquired) 08/31/16 12:15 Direct Antiglob Test Negative 08/27/16 08:20 JYOTI, Poly Interpret Negative 08/27/16 08:20 KB % Cells Negative 08/22/16 Unknown Crossmatch See Detail 08/31/16 12:15 Pre-Trans JYOTI Negative 08/27/16 15:20 Pre-Trans JYOTI Poly Negative 08/27/16 15:20 Post-Trans Blood Type O negative 08/27/16 15:20 Post-Trans JYOTI Negative 08/27/16 15:20 Post-Trans JYOTI Poly Negative 08/27/16 15:20
[2016-09-01] MEDS: PERCOCET 5/325 PO PRN (21:00)
[2016-09-01] MEDS: ZOFRAN IV PRN (21:38)
[2016-09-02] MEDS ORDERED: KEFLEX ONE (12:03)
--- NOTE | 2016-09-02 13:20 | Gastroenterology Progress Note ---
Assessment and Plan - Patient Problems (1) HELLP (hemolytic anemia/elev liver enzymes/low platelets in ) Current Visit: Yes Status: Acute Qualifiers: Trimester: T Plan to address problem: No new LFTs. Clinically stable. Will update labs tomorrow. Subjective Date of service: 09/02/16 Principal diagnosis: Thrombocytopenia,Jaundice HELLP syndrome- more likely Acute fatty liver dz Interval history: She reports feeling OK. Somewhat fatigued. Objective - Constitutional Vitals: Temp Pulse Resp BP Pulse Ox 98.5 F 95 H 18 104/59 97 09/02/16 00:41 09/02/16 00:41 09/02/16 00:41 09/02/16 00:41 09/02/16 00:41 General appearance: no acute distress, other (deeply icteric. ) - EENT Eyes: scleral icterus ENT: hearing intact, clear oral mucosa, dentition normal - Neck Neck: supple, normal ROM - Respiratory Respiratory effort: normal Respiratory: bilateral: CTA - Cardiovascular Rhythm: regular - Gastrointestinal General gastrointestinal: Present: soft, non-tender, non-distended, normal bowel sounds - Neurologic Neurological: alert and oriented x3, strength equal bilaterally, other (no asterixis) - Psychiatric Psychiatric: appropriate mood/affect, intact judgment & insight, memory intact - Labs CBC & Chem 7: 09/01/16 06:08 09/01/16 06:08 Labs: Laboratory Results - last 24 hr 09/01/16 09/01/16 09/01/16 14:25 16:19 21:37 POC Glucose 109 H 111 H 125 H 09/02/16 09:05 POC Glucose 91 Laboratory Results - last 24 hr 09/01/16 09/01/16 09/01/16 14:25 16:19 21:37 POC Glucose 109 H 111 H 125 H 09/02/16 09:05 POC Glucose 91
--- NOTE | 2016-09-02 13:58 | Hem/Onc Progress Note ---
Assessment and Plan Bilirubin still up. CBC improved with transfusion. Continue supportive care. Clinically seems to be improving though. labs today pending Subjective Date of service: 09/02/16 Interval history: Patient looks better. sTill weak. Off of all anti-biotics now. Complains of some abdominal pain today. chuck po Objective - Exam Narrative Exam: Icteric - Constitutional Vitals: Last Vital Signs Temp 98.5 F 09/02/16 00:41 Pulse 95 H 09/02/16 00:41 Resp 18 09/02/16 00:41 BP 104/59 09/02/16 00:41 Pulse Ox 97 09/02/16 00:41 Performance status: 3-limited selfcare - Neck Neck: supple - Respiratory Respiratory: bilateral: diminished - Cardiovascular Rhythm: regular Extremities: abnormal - Gastrointestinal General gastrointestinal: Present: distended (sl) - Labs Lab Results: Laboratory Results - last 24 hr 09/01/16 09/01/16 09/01/16 14:25 16:19 21:37 POC Glucose 109 H 111 H 125 H 09/02/16 09:05 POC Glucose 91
[2016-09-02 14:51] LABS: Basophils % (Auto) 0.2 % (0.0-1.8); Eosinophils % (Auto) 1.6 % (0.0-4.3); Hematocrit 30.6 % (30.3-42.9); Hemoglobin 10.2 gm/dl (10.1-14.3); Mean Corpuscular HGB Conc 33 % (30-34); Mean Corpuscular Hemoglobin 32 pg (28-32); Mean Corpuscular Volume 94 fl (79-97); Red Blood Count 3.24 M/mm3 (3.65-5.03); Red Cell Distribution Width 16.3 % (13.2-15.2); White Blood Count 16.6 K/mm3 (4.5-11.0)
[2016-09-02 14:51] LABS: Albumin 1.6 g/dL (3.9-5); Albumin/Globulin Ratio 0.6 %; BUN/Creatinine Ratio 27.27; Calcium 7.2 mg/dL (8.4-10.2); Chloride 108.3 mmol/L (98-107); Potassium 3.9 mmol/L (3.6-5.0); Total Protein 4.1 g/dL (6.3-8.2)
[2016-09-02 15:26] LABS: Bilirubin,Direct 16.7 mg/dL (0-0.2); Bilirubin,Indirect 4.4 mg/dL; Bilirubin,Total 21.1 mg/dL (0.1-1.2)
[2016-09-02 16:38] LABS: Platelet Count 67 K/mm3 (140-440)
[2016-09-02] MEDS: KEFLEX PO SCH (18:00)
[2016-09-02] MEDS: NORMODYNE PO SCH ×2 (18:00→21:37)
[2016-09-02] MEDS: MYLICON PO PRN (18:10)
[2016-09-02] MEDS: PERCOCET 5/325 PO PRN (18:10)
[2016-09-03] MEDS: KEFLEX PO SCH ×4 (00:24→17:49)
--- NOTE | 2016-09-03 04:18 | Event Note ---
Date: 09/03/16 see handwritten prgress note on chart for OB note dated 09/02/16. computers down on am of 09/02/16
[2016-09-03 05:54] LABS: Basophils % (Auto) 0.3 % (0.0-1.8); Eosinophils % (Auto) 1.8 % (0.0-4.3); Hematocrit 33.6 % (30.3-42.9); Hemoglobin 10.3 gm/dl (10.1-14.3); Mean Corpuscular HGB Conc 31 % (30-34); Mean Corpuscular Hemoglobin 32 pg (28-32); Mean Corpuscular Volume 103 fl (79-97); Platelet Count 75 K/mm3 (140-440); Red Blood Count 3.28 M/mm3 (3.65-5.03); Red Cell Distribution Width 22.6 % (13.2-15.2); White Blood Count 13.6 K/mm3 (4.5-11.0)
[2016-09-03 06:00] LABS: Albumin 1.4 g/dL (3.9-5); Albumin/Globulin Ratio 0.5 %; BUN/Creatinine Ratio 22.3; Bilirubin,Total 19.9 mg/dL (0.1-1.2); Chloride 108.4 mmol/L (98-107); Potassium 3.9 mmol/L (3.6-5.0); Total Protein 4.2 g/dL (6.3-8.2)
[2016-09-03 06:16] LABS: Bilirubin,Direct 15.7 mg/dL (0-0.2); Bilirubin,Indirect 4.2 mg/dL
[2016-09-03 06:24] LABS: INR 1.24 (0.87-1.13)
[2016-09-03] MEDS: PERCOCET 5/325 PO PRN (09:42)
[2016-09-03] MEDS: NORMODYNE PO SCH ×2 (09:44→21:49)
--- NOTE | 2016-09-03 09:45 | Progress Note ---
Assessment and Plan pod 12 s/p c/s. Acute Fatty liver dz of resolving. plan- physical therapy, encourage movement and ambulation Subjective - Subjective Date of service: 09/03/16 Principal diagnosis: Thrombocytopenia,Jaundice HELLP syndrome- more likely Acute fatty liver dz Interval history: Pt pod 12 s/p primary c/s. Improving liver and renal functions. H & H improved since last transfusion of two units of PRBCs. Pt current on telemetry unit. pt admits to flatus. diet advanced tolerated well. Jaundice is improved. Awaitng physcial therapy to work with patient on ambulation. will d/ c conteh today obtain beside commode. Patient reports: appetite normal, voiding normally, pain well controlled, flatus [place]: transported Objective - Vital Signs Latest vital signs: Vital Signs Temp Pulse Pulse Resp BP Pulse Ox 09/03/16 06:49 98.1 F 71 20 112/63 99 09/03/16 00:42 98.4 F 72 18 98/57 98 09/02/16 21:18 98.3 F 78 18 110/62 98 09/02/16 18:01 98.9 F 83 18 120/69 98 Intake and Output 09/02/16 09/03/16 09/03/16 22:59 06:59 14:59 Intake Total 490 Output Total 1150 Balance 490 -1150 Intake: IV 10 Right Internal Jugular 10 Oral 480 Output: Urine 1150 Indwelling Catheter 1150 Other: Total, Intake Amount 240 Total, Output Amount 1150 Voiding Method Indwelling Catheter Indwelling Catheter Indwelling Catheter # Bowel Movements 1 Weight 89.3 kg - Exam Breasts: Present: deferred Cardiovascular: Present: Regular rate, Normal S1, Normal S2 Lungs: Present: Clear to auscultation Abdomen: Present: normal appearance, soft Vulva: both: normal (edema still noted ) Uterus: Present: normal, firm Extremities: Present: edema (bilateral. +3) Deep Tendon Reflex Grade: Normal +2 Incision: Present: normal, dry, intact - Labs Labs: Abnormal lab results 09/02/16 09/02/16 09/02/16 Range/Units 04:00 07:00 16:02 WBC 16.6 H (4.5-11.0) K/mm3 RBC 3.24 L (3.65-5.03) M/mm3 MCV (79-97) fl RDW 16.3 H (13.2-15.2) % Plt Count 67 L (140-440) K/mm3 Lymph % (Auto) 7.6 L (13.4-35.0) % Seg Neutrophils % 86.7 H (40.0-70.0) % Seg Neutrophils # 14.4 H (1.8-7.7) K/mm3 PT (12.2-14.9) Sec. INR (0.87-1.13) Chloride 108.3 H (98-107) mmol/L Carbon Dioxide 19 L (22-30) mmol/L BUN 30 H (7-17) mg/dL Creatinine (0.7-1.2) mg/dL POC Glucose 111 H (70-105) Calcium 7.2 L (8.4-10.2) mg/dL Total Bilirubin 21.1 H (0.1-1.2) mg/dL Direct Bilirubin 16.7 H (0-0.2) mg/dL Alkaline Phosphatase 182 H (35-129) units/L Total Protein 4.1 L (6.3-8.2) g/dL Albumin 1.6 L (3.9-5) g/dL 09/02/16 09/03/16 09/03/16 Range/Units 22:16 05:19 05:19 WBC 13.6 H (4.5-11.0) K/mm3 RBC 3.28 L (3.65-5.03) M/mm3 MCV 103 H D (79-97) fl RDW 22.6 H (13.2-15.2) % Plt Count 75 L (140-440) K/mm3 Lymph % (Auto) 9.2 L (13.4-35.0) % Seg Neutrophils % 84.8 H (40.0-70.0) % Seg Neutrophils # 11.5 H (1.8-7.7) K/mm3 PT (12.2-14.9) Sec. INR (0.87-1.13) Chloride 108.4 H (98-107) mmol/L Carbon Dioxide 18 L (22-30) mmol/L BUN 29 H (7-17) mg/dL Creatinine 1.3 H (0.7-1.2) mg/dL POC Glucose 111 H (70-105) Calcium 7.0 L (8.4-10.2) mg/dL Total Bilirubin 19.9 H (0.1-1.2) mg/dL Direct Bilirubin 15.7 H (0-0.2) mg/dL Alkaline Phosphatase 160 H (35-129) units/L Total Protein 4.2 L (6.3-8.2) g/dL Albumin 1.4 L (3.9-5) g/dL 09/03/16 Range/Units 05:51 WBC (4.5-11.0) K/mm3 RBC (3.65-5.03) M/mm3 MCV (79-97) fl RDW (13.2-15.2) % Plt Count (140-440) K/mm3 Lymph % (Auto) (13.4-35.0) % Seg Neutrophils % (40.0-70.0) % Seg Neutrophils # (1.8-7.7) K/mm3 PT 15.5 H (12.2-14.9) Sec. INR 1.24 H (0.87-1.13) Chloride (98-107) mmol/L Carbon Dioxide (22-30) mmol/L BUN (7-17) mg/dL Creatinine (0.7-1.2) mg/dL POC Glucose (70-105) Calcium (8.4-10.2) mg/dL Total Bilirubin (0.1-1.2) mg/dL Direct Bilirubin (0-0.2) mg/dL Alkaline Phosphatase (35-129) units/L Total Protein (6.3-8.2) g/dL Albumin (3.9-5) g/dL
[2016-09-03] MEDS: FEOSOL PO SCH ×2 (10:23→21:49)
--- NOTE | 2016-09-03 13:53 | Gastroenterology Progress Note ---
Assessment and Plan 1. HELLP Syndrome-Elevated Liver enzymes Stable over night. Labs with mild improvement, TB ~19. Continue to monitor closely. Supportive care. Subjective Date of service: 09/03/16 Principal diagnosis: Thrombocytopenia,Jaundice HELLP syndrome- more likely Acute fatty liver dz Interval history: Patient OOB to restroom, feeling some better. Objective - Constitutional Vitals: Temp Pulse Resp BP Pulse Ox 97.4 F L 75 16 117/64 98 09/03/16 08:15 09/03/16 08:15 09/03/16 08:15 09/03/16 08:15 09/03/16 08:15 General appearance: no acute distress - EENT Eyes: EOM intact, scleral icterus ENT: hearing intact - Neck Neck: supple - Cardiovascular Rhythm: regular Heart Sounds: Present: S1 & S2 - Gastrointestinal General gastrointestinal: Present: distended, normal bowel sounds, other (low transverse incision, BS+) - Integumentary Integumentary: Present: jaundice - Neurologic Neurological: alert and oriented x3 - Labs CBC & Chem 7: 09/03/16 05:19 09/03/16 05:19 Labs: Laboratory Results - last 24 hr 08/28/16 09/02/16 09/02/16 17:41 04:00 07:00 WBC 16.6 H RBC 3.24 L Hgb 10.2 Hct 30.6 MCV 94 MCH 32 MCHC 33 RDW 16.3 H Plt Count 67 L Lymph % (Auto) 7.6 L Ray % (Auto) 3.9 Eos % (Auto) 1.6 Baso % (Auto) 0.2 Lymph # 1.3 Ray # 0.6 Eos # 0.3 Baso # 0.0 Seg Neutrophils % 86.7 H Seg Neutrophils # 14.4 H PT INR Sodium 138 Potassium 3.9 Chloride 108.3 H Carbon Dioxide 19 L Anion Gap 15 BUN 30 H Creatinine 1.1 Estimated GFR 55 BUN/Creatinine Ratio 27.27 Glucose 88 POC Glucose Calcium 7.2 L Total Bilirubin 21.1 H Direct Bilirubin 16.7 H Indirect Bilirubin 4.4 AST 29 ALT 22 Alkaline Phosphatase 182 H Total Protein 4.1 L Albumin 1.6 L Albumin/Globulin Ratio 0.6 Miscellaneous Test Flexitest 1 09/02/16 09/02/16 09/02/16 12:59 16:02 22:16 WBC RBC Hgb Hct MCV MCH MCHC RDW Plt Count Lymph % (Auto) Ray % (Auto) Eos % (Auto) Baso % (Auto) Lymph # Ray # Eos # Baso # Seg Neutrophils % Seg Neutrophils # PT INR Sodium Potassium Chloride Carbon Dioxide Anion Gap BUN Creatinine Estimated GFR BUN/Creatinine Ratio Glucose POC Glucose 100 111 H 111 H Calcium Total Bilirubin Direct Bilirubin Indirect Bilirubin AST ALT Alkaline Phosphatase Total Protein Albumin Albumin/Globulin Ratio Miscellaneous Test 09/03/16 09/03/16 09/03/16 05:19 05:19 05:51 WBC 13.6 H RBC 3.28 L Hgb 10.3 Hct 33.6 MCV 103 H D MCH 32 MCHC 31 RDW 22.6 H Plt Count 75 L Lymph % (Auto) 9.2 L Ray % (Auto) 3.9 Eos % (Auto) 1.8 Baso % (Auto) 0.3 Lymph # 1.3 Ray # 0.5 Eos # 0.2 Baso # 0.0 Seg Neutrophils % 84.8 H Seg Neutrophils # 11.5 H PT 15.5 H INR 1.24 H Sodium 140 Potassium 3.9 Chloride 108.4 H Carbon Dioxide 18 L Anion Gap 18 BUN 29 H Creatinine 1.3 H Estimated GFR 46 BUN/Creatinine Ratio 22.30 Glucose 80 POC Glucose Calcium 7.0 L Total Bilirubin 19.9 H Direct Bilirubin 15.7 H Indirect Bilirubin 4.2 AST 24 ALT 18 Alkaline Phosphatase 160 H Total Protein 4.2 L Albumin 1.4 L Albumin/Globulin Ratio 0.5 Miscellaneous Test 09/03/16 09:10 WBC RBC Hgb Hct MCV MCH MCHC RDW Plt Count Lymph % (Auto) Ray % (Auto) Eos % (Auto) Baso % (Auto) Lymph # Ray # Eos # Baso # Seg Neutrophils % Seg Neutrophils # PT INR Sodium Potassium Chloride Carbon Dioxide Anion Gap BUN Creatinine Estimated GFR BUN/Creatinine Ratio Glucose POC Glucose 77 Calcium Total Bilirubin Direct Bilirubin Indirect Bilirubin AST ALT Alkaline Phosphatase Total Protein Albumin Albumin/Globulin Ratio Miscellaneous Test
--- NOTE | 2016-09-03 14:12 | Progress Note ---
Assessment and Plan Current antibiotics: None Previous antibiotics: Vancomycin IV ( 08/28 - 08/30) Levaquin 750 mg IV q24h 08/28-08/30 Zosyn 2.25 g IV every 6 hours (08/23-08/25) Tamiflu (75 mg po 08/22) Immunosuppressants: Solu-Medrol 20 mg IV 1 ( 08/27) Health maintenance record: HIV negative Hepatitis A, B, C negative Toxoplasma IgM negative Rubella IgG positive (immune) Parvovirus B19 IgM negative, IgG positive (past exposure) Rh- ASSESSMENT: Ms Lopez is a 41-year-old female without known chronic medical problems who was admitted to [facility] on 08/22/16 with flulike symptoms in association with 31.2 weeks IUP. She developed evidence of non-reassuring FHR requiring emergent low segment transverse and is now seen with possible sepsis in association with progressive liver failure & possible HELLP syndrome. Problem list: 1. Sepsis syndrome with marked leukocytosis and acidosis - R/O aspiration - R/O UTI - R/O biliary sepsis - R/O viral syndrome -Rule out all secondary to primary problem without infection -Work up with no evidence of active infection -Stable off antibiotics. 2. HELLP syndrome (hemolysis, elevated liver enzymes, thrombocytopenia) -Clinically improving -Marked hyperbilirubinemia with slow improvement. - improved transaminase levels. 3. Anemia - Acute/ anemia of - s/p PRBCs x 4 4. Coagulopathy secondary to above - s/p 2 units FFP 5. SHAUNA - Improved 6. s/p 32 WK IUP- s/p 08/22 PLAN: 1. Following off antibiotics. 2. Continued close observation and support 3. Follow lab 4. Nothing else to add. Will sign off. Call again if needed. Thanks. Subjective Date of service: 09/03/16 Principal diagnosis: Thrombocytopenia,Jaundice HELLP syndrome- more likely Acute fatty liver dz Interval history: No specific complaints. Objective - Exam Narrative Exam: Jaundiced. Looks improved in general. HEENT: Pupils are equal reactive to light and accommodation. Sclerael icterus. Oropharynx is normal with no evidence of oral candidiasis or pharyngitis. NECK: Supple. No enlargement of the thyroid gland. No significant cervical lymphadenopathy. No jugular venous distention at 30. LUNGS: Clear with slight diminished breath sounds at bases. HEART: RRR. There are no murmurs, gallops, clicks or rubs heard. ABDOMEN: Soft. Mild right upper quadrant point tenderness.. Liver and spleen are not palpably enlarged or tender. No palpable masses. Bowel sounds are normoactive. Ascites is not appreciated. EXTREMITIES: 1+ generalized edema. IV dressings sites are clean. SKIN: No other rash, ulcers or wounds. NEUROLOGIC: No focal findings. - Constitutional Vitals: Vital Signs Temp Pulse Resp BP Pulse Ox 97.4 F L 75 16 117/64 98 09/03/16 08:15 09/03/16 08:15 09/03/16 08:15 09/03/16 08:15 09/03/16 08:15 Temperature -Last 24 Hours Temperature 97.4 F Temperature 98.1 F Temperature 98.4 F Temperature 98.3 F Temperature 98.9 F - Labs CBC & Chem 7: 09/03/16 05:19 09/03/16 05:19 Labs: Abnormal lab results 09/02/16 09/02/16 09/02/16 Range/Units 04:00 07:00 16:02 WBC 16.6 H (4.5-11.0) K/mm3 RBC 3.24 L (3.65-5.03) M/mm3 MCV (79-97) fl RDW 16.3 H (13.2-15.2) % Plt Count 67 L (140-440) K/mm3 Lymph % (Auto) 7.6 L (13.4-35.0) % Seg Neutrophils % 86.7 H (40.0-70.0) % Seg Neutrophils # 14.4 H (1.8-7.7) K/mm3 PT (12.2-14.9) Sec. INR (0.87-1.13) Chloride 108.3 H (98-107) mmol/L Carbon Dioxide 19 L (22-30) mmol/L BUN 30 H (7-17) mg/dL Creatinine (0.7-1.2) mg/dL POC Glucose 111 H (70-105) Calcium 7.2 L (8.4-10.2) mg/dL Total Bilirubin 21.1 H (0.1-1.2) mg/dL Direct Bilirubin 16.7 H (0-0.2) mg/dL Alkaline Phosphatase 182 H (35-129) units/L Total Protein 4.1 L (6.3-8.2) g/dL Albumin 1.6 L (3.9-5) g/dL 09/02/16 09/03/16 09/03/16 Range/Units 22:16 05:19 05:19 WBC 13.6 H (4.5-11.0) K/mm3 RBC 3.28 L (3.65-5.03) M/mm3 MCV 103 H D (79-97) fl RDW 22.6 H (13.2-15.2) % Plt Count 75 L (140-440) K/mm3 Lymph % (Auto) 9.2 L (13.4-35.0) % Seg Neutrophils % 84.8 H (40.0-70.0) % Seg Neutrophils # 11.5 H (1.8-7.7) K/mm3 PT (12.2-14.9) Sec. INR (0.87-1.13) Chloride 108.4 H (98-107) mmol/L Carbon Dioxide 18 L (22-30) mmol/L BUN 29 H (7-17) mg/dL Creatinine 1.3 H (0.7-1.2) mg/dL POC Glucose 111 H (70-105) Calcium 7.0 L (8.4-10.2) mg/dL Total Bilirubin 19.9 H (0.1-1.2) mg/dL Direct Bilirubin 15.7 H (0-0.2) mg/dL Alkaline Phosphatase 160 H (35-129) units/L Total Protein 4.2 L (6.3-8.2) g/dL Albumin 1.4 L (3.9-5) g/dL 09/03/16 Range/Units 05:51 WBC (4.5-11.0) K/mm3 RBC (3.65-5.03) M/mm3 MCV (79-97) fl RDW (13.2-15.2) % Plt Count (140-440) K/mm3 Lymph % (Auto) (13.4-35.0) % Seg Neutrophils % (40.0-70.0) % Seg Neutrophils # (1.8-7.7) K/mm3 PT 15.5 H (12.2-14.9) Sec. INR 1.24 H (0.87-1.13) Chloride (98-107) mmol/L Carbon Dioxide (22-30) mmol/L BUN (7-17) mg/dL Creatinine (0.7-1.2) mg/dL POC Glucose (70-105) Calcium (8.4-10.2) mg/dL Total Bilirubin (0.1-1.2) mg/dL Direct Bilirubin (0-0.2) mg/dL Alkaline Phosphatase (35-129) units/L Total Protein (6.3-8.2) g/dL Albumin (3.9-5) g/dL
--- NOTE | 2016-09-03 17:29 | Progress Note ---
Assessment and Plan Assessment and plan: 1. HELLP syndrome - baby delivered through ; supportive care; s/p transfusion PRBC, FFP; LFTs trending down and normalized; platelets slowly trending up 2. SIRS - sepsis suspected, but no evidence of infection; antibiotics discontinued 3. Anemia - combination of anemia/blood loss/hemolytic anemia duie to HELLP; s/p total of 6 units PRBCs; hemoglobin stable;continue to monitor H&H 4. Thrombocytopenia - secondary to HELLP; slowly improving 5. Coagulopathy - sec to HELLP; received 2 units FFP; now resolved 6. Acute kidney injury -almost resolved with IV hydration, now creatinine with slightly increase; continue IV fluids and recheck in a.m. 7. Hyperkalemia - medically treated, resolved 8. Acute encephalopathy - likely secondary to HELLP; resolved 9. Malnutrition - dietitian consulted for supplementation 10. Debility - PT consulted 11. S/p 08/13/16 History Interval history: doing better, but has severe generalized weakness Hospitalist Physical - Constitutional Vitals: Temp Pulse Resp BP Pulse Ox 97.4 F L 66 16 117/64 98 09/03/16 08:15 09/03/16 16:30 09/03/16 08:15 09/03/16 08:15 09/03/16 08:15 General appearance: Present: no acute distress, well-nourished - EENT Eyes: Present: PERRL, EOM intact, scleral icterus. Absent: conjunctival injection - Neck Neck: Present: supple, normal ROM. Absent: masses or JVD - Respiratory Respiratory effort: normal Respiratory: bilateral: CTA, negative: rales, rhonchi, wheezing - Cardiovascular Rhythm: regular Heart Sounds: Present: S1 & S2. Absent: systolic murmur - Extremities Extremities: no ischemia Extremity abnormal: edema - Abdominal General gastrointestinal: soft, tender, distended (peripartum), normal bowel sounds Localized gastrointestinal: tender: suprapubic - Integumentary Integumentary: Present: warm, dry, jaundice. Absent: rash - Psychiatric Psychiatric: cooperative - Neurologic Neurologic: CNII-XII intact, no focal deficits Results - Labs CBC & Chem 7: 09/03/16 05:19 09/03/16 05:19 Labs: Laboratory Last Values WBC 13.6 K/mm3 (4.5-11.0) H 09/03/16 05:19 RBC 3.28 M/mm3 (3.65-5.03) L 09/03/16 05:19 Hgb 10.3 gm/dl (10.1-14.3) 09/03/16 05:19 Hct 33.6 % (30.3-42.9) 09/03/16 05:19 MCV 103 fl (79-97) H D 09/03/16 05:19 MCH 32 pg (28-32) 09/03/16 05:19 MCHC 31 % (30-34) 09/03/16 05:19 RDW 22.6 % (13.2-15.2) H 09/03/16 05:19 Plt Count 75 K/mm3 (140-440) L 09/03/16 05:19 Lymph % (Auto) 9.2 % (13.4-35.0) L 09/03/16 05:19 [place] % (Auto) 3.9 % (0.0-7.3) 09/03/16 05:19 Eos % (Auto) 1.8 % (0.0-4.3) 09/03/16 05:19 Baso % (Auto) 0.3 % (0.0-1.8) 09/03/16 05:19 Lymph # 1.3 K/mm3 (1.2-5.4) 09/03/16 05:19 [place] # 0.5 K/mm3 (0.0-0.8) 09/03/16 05:19 Eos # 0.2 K/mm3 (0.0-0.4) 09/03/16 05:19 Baso # 0.0 K/mm3 (0.0-0.1) 09/03/16 05:19 Add Manual Diff Complete 08/31/16 05:20 Total Counted 100 08/31/16 05:20 Seg Neutrophils % 84.8 % (40.0-70.0) H 09/03/16 05:19 Seg Neuts % (Manual) 83.0 % (40.0-70.0) H 08/31/16 05:20 Band Neutrophils % 0 % 08/31/16 05:20 Lymphocytes % (Manual) 5.0 % (13.4-35.0) L 08/31/16 05:20 Reactive Lymphs % (Man) 0 % 08/31/16 05:20 Monocytes % (Manual) 7.0 % (0.0-7.3) 08/31/16 05:20 Eosinophils % (Manual) 5.0 % (0.0-4.3) H 08/31/16 05:20 Basophils % (Manual) 0 % (0.0-1.8) 08/31/16 05:20 Metamyelocytes % 0 % 08/31/16 05:20 Myelocytes % 0 % 08/31/16 05:20 Promyelocytes % 0 % 08/31/16 05:20 Blast Cells % 0 % 08/31/16 05:20 Nucleated RBC % 7.0 % (0.0-0.9) H 08/31/16 05:20 Seg Neutrophils # 11.5 K/mm3 (1.8-7.7) H 09/03/16 05:19 Seg Neutrophils # Man 12.0 K/mm3 (1.8-7.7) H 08/31/16 05:20 Band Neutrophils # 0.0 K/mm3 08/31/16 05:20 Lymphocytes # (Manual) 0.7 K/mm3 (1.2-5.4) L 08/31/16 05:20 Abs React Lymphs (Man) 0.0 K/mm3 08/31/16 05:20 Monocytes # (Manual) 1.0 K/mm3 (0.0-0.8) H 08/31/16 05:20 Eosinophils # (Manual) 0.7 K/mm3 (0.0-0.4) H 08/31/16 05:20 Basophils # (Manual) 0.0 K/mm3 (0.0-0.1) 08/31/16 05:20 Metamyelocytes # 0.0 K/mm3 08/31/16 05:20 Myelocytes # 0.0 K/mm3 08/31/16 05:20 Promyelocytes # 0.0 K/mm3 08/31/16 05:20 Blast Cells # 0.0 K/mm3 08/31/16 05:20 WBC Morphology Not Reportable 08/31/16 05:20 Hypersegmented Neuts Not Reportable 08/31/16 05:20 Hyposegmented Neuts Not Reportable 08/31/16 05:20 Hypogranular Neuts Not Reportable 08/31/16 05:20 Smudge Cells Not Reportable 08/31/16 05:20 Toxic Granulation Not Reportable 08/31/16 05:20 Toxic Vacuolation Not Reportable 08/31/16 05:20 Dohle Bodies Not Reportable 08/31/16 05:20 Pelger-Huet Anomaly Not Reportable 08/31/16 05:20 Alaina Rods Not Reportable 08/31/16 05:20 Platelet Estimate Appears decreased 08/31/16 05:20 Clumped Platelets Not Reportable 08/31/16 05:20 Plt Clumps, EDTA Not Reportable 08/31/16 05:20 Large Platelets Rare 08/31/16 05:20 Giant Platelets Not Reportable 08/31/16 05:20 Platelet Satelliting Not Reportable 08/31/16 05:20 Plt Morphology Comment Not Reportable 08/31/16 05:20 RBC Morphology Not Reportable 08/31/16 05:20 Dimorphic RBCs Not Reportable 08/31/16 05:20 Polychromasia 1+ 08/31/16 05:20 Hypochromasia Not Reportable 08/31/16 05:20 Poikilocytosis Not Reportable 08/31/16 05:20 Anisocytosis 1+ 08/31/16 05:20 Microcytosis Not Reportable 08/31/16 05:20 Macrocytosis Not Reportable 08/31/16 05:20 Spherocytes Not Reportable 08/31/16 05:20 Pappenheimer Bodies Not Reportable 08/31/16 05:20 Sickle Cells Not Reportable 08/31/16 05:20 Target Cells Not Reportable 08/31/16 05:20 Tear Drop Cells Rare 08/31/16 05:20 Ovalocytes Not Reportable 08/31/16 05:20 Helmet Cells Not Reportable 08/31/16 05:20 Whittaker-Vander Bodies Not Reportable 08/31/16 05:20 [place] Rings Not Reportable 08/31/16 05:20 [place] Cells Not Reportable 08/31/16 05:20 Bite Cells Not Reportable 08/31/16 05:20 Crenated Cell Not Reportable 08/31/16 05:20 Elliptocytes Not Reportable 08/31/16 05:20 Acanthocytes (Spur) Not Reportable 08/31/16 05:20 Rouleaux Not Reportable 08/31/16 05:20 Hemoglobin C Crystals Not Reportable 08/31/16 05:20 Schistocytes Not Reportable 08/31/16 05:20 Malaria parasites Not Reportable 08/31/16 05:20 Percent Retic 6.59 % (0.78-2.58) H 08/27/16 11:15 Sickle Cell Screen Negative (Negative) 08/22/16 18:48 Daljit Bodies Not Reportable 08/31/16 05:20 Haptoglobin <15 mg/dL (43-212) L 08/27/16 11:15 Hem Pathologist Commnt No 08/31/16 05:20 PT 15.5 Sec. (12.2-14.9) H 09/03/16 05:51 INR 1.24 (0.87-1.13) H 09/03/16 05:51 APTT 42.3 Sec. (24.2-36.6) H 08/25/16 05:45 POC ABG pH 7.479 (7.35-7.45) H 08/24/16 14:12 POC ABG pCO2 29.6 (35-45) L 08/24/16 14:12 POC ABG pO2 62 (80-105) L 08/24/16 14:12 POC ABG HCO3 21.9 08/24/16 14:12 POC ABG Total CO2 23 08/24/16 14:12 POC ABG O2 Sat 93 08/24/16 14:12 POC ABG Base Excess -2 08/24/16 14:12 FiO2 3 % 08/24/16 14:12 Sodium 140 mmol/L (137-145) 09/03/16 05:19 Potassium 3.9 mmol/L (3.6-5.0) 09/03/16 05:19 Chloride 108.4 mmol/L (98-107) H 09/03/16 05:19 Carbon Dioxide 18 mmol/L (22-30) L 09/03/16 05:19 Anion Gap 18 mmol/L 09/03/16 05:19 BUN 29 mg/dL (7-17) H 09/03/16 05:19 Creatinine 1.3 mg/dL (0.7-1.2) H 09/03/16 05:19 Estimated GFR 46 ml/min 02/02/17 05:19 BUN/Creatinine Ratio 22.30 % 09/03/16 05:19 Glucose 80 mg/dL (65-100) 09/03/16 05:19 POC Glucose 77 (70-105) 09/03/16 09:10 Lactic Acid 2.0 mmol/L (0.7-2.0) 08/29/16 04:30 Calcium 7.0 mg/dL (8.4-10.2) L 09/03/16 05:19 Magnesium 4.5 mg/dL (1.7-2.3) H 08/26/16 04:50 Total Bilirubin 19.9 mg/dL (0.1-1.2) H 09/03/16 05:19 Direct Bilirubin 15.7 mg/dL (0-0.2) H 09/03/16 05:19 Indirect Bilirubin 4.2 mg/dL 09/03/16 05:19 AST 24 units/L (5-40) 09/03/16 05:19 ALT 18 units/L (7-56) 09/03/16 05:19 Alkaline Phosphatase 160 units/L (35-129) H 09/03/16 05:19 Ammonia 44.0 umol/L (25-60) 08/30/16 05:40 Lactate Dehydrogenase 844 units/L (91-180) H 08/27/16 08:40 Total Creatine Kinase 1295 units/L (30-135) H 08/24/16 05:00 NT-Pro-B Natriuret Pep 241.0 pg/mL (0-450) 08/27/16 16:30 Total Protein 4.2 g/dL (6.3-8.2) L 09/03/16 05:19 Albumin 1.4 g/dL (3.9-5) L 09/03/16 05:19 Albumin/Globulin Ratio 0.5 % 09/03/16 05:19 LDL Cholesterol Direct 38 mg/dL (50-130) L 08/23/16 07:50 Vitamin B12 > 2000 pg/mL (211-911) H 08/27/16 11:15 Folate 10.54 ng/mL (7.3-26.0) 08/27/16 11:15 Urine Color [place] (Yellow) 08/27/16 15:20 Urine Turbidity Clear (Clear) 08/27/16 15:20 Urine pH 6.0 (5.0-7.0) 08/27/16 15:20 Ur Specific [place] 1.018 (1.003-1.030) 08/27/16 15:20 Urine Protein 30 mg/dl mg/dL (Negative) 08/27/16 15:20 Urine Glucose (UA) Neg mg/dL (Negative) 08/27/16 15:20 Urine Ketones Neg mg/dL (Negative) 08/27/16 15:20 Urine Blood Mod (Negative) 08/27/16 15:20 Urine Nitrite Neg (Negative) 08/27/16 15:20 Urine Bilirubin Mod (Negative) 08/27/16 15:20 Urine Ictotest Positive (Negative) 08/27/16 15:20 Urine Urobilinogen 4.0 mg/dL (<2.0) 08/27/16 15:20 Ur Leukocyte Esterase Neg (Negative) 08/27/16 15:20 Urine WBC (Auto) 10.0 /HPF (0.0-6.0) H 08/27/16 15:20 Urine RBC (Auto) 7.0 /HPF (0.0-6.0) 08/27/16 15:20 U Epithel Cells (Auto) < 1.0 /HPF (0-13.0) 08/27/16 15:20 Granular Casts 4 /LPF 08/27/16 15:20 Urine Mucus Few /HPF 08/27/16 15:20 Urine Opiates Screen Presumptive negative 08/22/16 18:30 Urine Methadone Screen Presumptive negative 08/22/16 18:30 Ur Barbiturates Screen Presumptive negative 08/22/16 18:30 Ur Phencyclidine Scrn Presumptive negative 08/22/16 18:30 Ur Amphetamines Screen Presumptive negative 08/22/16 18:30 U Benzodiazepines Scrn Presumptive negative 08/22/16 18:30 Urine Cocaine Screen Presumptive negative 08/22/16 18:30 U Marijuana (THC) Screen Presumptive negative 08/22/16 18:30 Drugs of Abuse Note Disclamer 08/22/16 18:30 RPR Nonreactive (Nonreactive) 08/22/16 18:34 CMV IgG Ab 2.92 (<=0.90) H 08/22/16 18:34 CMV IgM Ab <0.2 (()) 08/22/16 18:34 CMV DNA PCR log copping machine operator/mL See scanned report 08/23/16 13:03 Hepatitis A IgM Ab -1 (NonReactive) 08/27/16 11:15 Hep Bs Antigen Non-reactive (Negative) 08/22/16 18:34 Hepatitis C Antibody Non-reactive (NonReactive) 08/22/16 18:34 Herpes Simplex Source Swab (()) 08/25/16 11:45 HSV I DNA PCR Not detected (Not Detected) 08/25/16 11:45 HSV II DNA PCR Not detected (Not Detected) 08/25/16 11:45 HIV 1&2 Antibody Rapid Non react (Non React) 08/23/16 09:25 HIV P24 Antigen Non react (Non React) 08/23/16 09:25 Rubella IgG Antibody Immune (Immune) 08/22/16 18:34 Rubella IgM Antibody <0.90 (<0.90) 08/22/16 18:34 Schistocytes Smear Rare 08/26/16 04:50 Toxoplasma IgG Ab <=0.90 (<=0.90) 08/22/16 18:34 Toxoplasma IgM Ab Negative (Negative) 08/22/16 18:34 Miscellaneous Test Flexitest 1 08/28/16 17:41 Blood Type O NEGATIVE 08/31/16 12:15 Antibody Screen Positive 08/31/16 12:15 Antibody Identification Anti-D (Passively Aquired) 08/31/16 12:15 Direct Antiglob Test Negative 08/27/16 08:20 JYOTI, Poly Interpret Negative 08/27/16 08:20 KB % Cells Negative 08/22/16 Unknown Crossmatch See Detail 08/31/16 12:15 Pre-Trans JYOTI Negative 08/27/16 15:20 Pre-Trans JYOTI Poly Negative 08/27/16 15:20 Post-Trans Blood Type O negative 08/27/16 15:20 Post-Trans JYOTI Negative 08/27/16 15:20 Post-Trans JYOTI Poly Negative 08/27/16 15:20
[2016-09-04] MEDS: KEFLEX PO SCH ×3 (00:13→23:13)
--- NOTE | 2016-09-04 07:48 | Event Note ---
Date: 09/04/16 Lindsey D/c'd last pm. pt had inability to void and abdominal pain. Will obtain urology consult this am if this recurs.
[2016-09-04 07:57] LABS: Basophils % (Auto) 0.5 % (0.0-1.8); Eosinophils % (Auto) 1.6 % (0.0-4.3); Hematocrit 33.3 % (30.3-42.9); Hemoglobin 10.9 gm/dl (10.1-14.3); Mean Corpuscular HGB Conc 33 % (30-34); Mean Corpuscular Hemoglobin 31 pg (28-32); Mean Corpuscular Volume 96 fl (79-97); Platelet Count 103 K/mm3 (140-440); Red Blood Count 3.48 M/mm3 (3.65-5.03)
[2016-09-04 08:10] LABS: Red Cell Distribution Width 24.5 % (13.2-15.2)
[2016-09-04 08:22] LABS: Albumin 1.6 g/dL (3.9-5); Albumin/Globulin Ratio 0.5 %; BUN/Creatinine Ratio 21.53; Bilirubin,Total 16.8 mg/dL (0.1-1.2); Calcium 7.3 mg/dL (8.4-10.2); Chloride 105.5 mmol/L (98-107); Potassium 4.1 mmol/L (3.6-5.0); Total Protein 4.8 g/dL (6.3-8.2)
--- NOTE | 2016-09-04 08:54 | Hem/Onc Progress Note ---
Assessment and Plan Bilirubin still up but better. CBC improved . Continue supportive care. Clinically seems to be improving though. lplts improving. Subjective Date of service: 09/04/16 Interval history: Patient looks better. sTill weak. Off of all anti-biotics now. Complains of some abdominal pain today. chuck po Objective - Exam Narrative Exam: Icteric - Constitutional Vitals: Last Vital Signs Temp 97.9 F 09/04/16 08:34 Pulse 69 09/04/16 08:34 Resp 16 09/04/16 08:34 BP 106/62 09/04/16 08:34 Pulse Ox 98 09/04/16 08:34 General appearance: no acute distress Performance status: 3-limited selfcare - Neck Neck: supple - Respiratory Respiratory effort: Positive: normal Respiratory: bilateral: CTA - Cardiovascular Rhythm: regular Extremity abnormal: other (scds) - Gastrointestinal General gastrointestinal: Present: soft (softer) - Labs Lab Results: Laboratory Results - last 24 hr 09/03/16 09/03/16 09/04/16 09:10 21:45 06:56 WBC 13.0 H RBC 3.48 L Hgb 10.9 Hct 33.3 MCV 96 D MCH 31 MCHC 33 RDW 24.5 H Plt Count 103 L Lymph % (Auto) 10.7 L [place] % (Auto) 4.0 Eos % (Auto) 1.6 Baso % (Auto) 0.5 Lymph # 1.4 [place] # 0.5 Eos # 0.2 Baso # 0.1 Seg Neutrophils % 83.2 H Seg Neutrophils # 10.8 H Carbon Dioxide BUN Creatinine Estimated GFR BUN/Creatinine Ratio Glucose POC Glucose 77 83 Calcium Total Bilirubin AST ALT Alkaline Phosphatase Total Protein Albumin Albumin/Globulin Ratio 09/04/16 06:56 WBC RBC Hgb Hct MCV MCH MCHC RDW Plt Count Lymph % (Auto) [place] % (Auto) Eos % (Auto) Baso % (Auto) Lymph # [place] # Eos # Baso # Seg Neutrophils % Seg Neutrophils # Carbon Dioxide 17 L BUN 28 H Creatinine 1.3 H Estimated GFR 46 BUN/Creatinine Ratio 21.53 Glucose 72 POC Glucose Calcium 7.3 L Total Bilirubin 16.8 H AST 29 ALT 17 Alkaline Phosphatase 162 H Total Protein 4.8 L Albumin 1.6 L Albumin/Globulin Ratio 0.5
--- NOTE | 2016-09-04 09:03 | Progress Note ---
Assessment and Plan pt unable to void yesterday after d/c of conteh. Will attempt removal this am. will straight cath is unable to void. Continue to monitor output since bun/ creatinine still elevated. Out of bed today to chair with assistance. Subjective - Subjective Date of service: 09/04/16 Principal diagnosis: Thrombocytopenia-,Jaundice HELLP syndrome- more likely Acute fatty liver dz Interval history: Pt pod 12 s/p primary c/s. Improving liver and renal functions. H & H improved since last transfusion of two units of PRBCs. Pt current on telemetry unit. pt admits to flatus. diet advanced tolerated well. Jaundice is improved. Awaitng physcial therapy to work with patient on ambulation. will d/ c conteh today obtain beside commode. Patient reports: appetite normal, pain well controlled : transported Objective - Vital Signs Latest vital signs: Vital Signs Temp Pulse Pulse Resp BP Pulse Ox 09/04/16 08:34 97.9 F 69 16 106/62 98 09/04/16 05:44 97.3 F L 74 18 110/68 94 09/04/16 00:38 98.3 F 75 20 102/56 94 09/03/16 20:52 99.3 F 75 18 117/70 98 09/03/16 16:30 97.9 F 66 67 18 111/62 98 Intake and Output 09/03/16 09/04/16 09/04/16 22:59 06:59 14:59 Intake Total 1440 Output Total 1100 Balance 340 Intake: Oral 1440 Output: Urine 1100 Indwelling Catheter 1100 Other: Total, Intake Amount 1200 Total, Output Amount 1100 Voiding Method Indwelling Catheter # Bowel Movements 1 - Exam Breasts: Present: deferred Cardiovascular: Present: Regular rate, Normal S1, Normal S2 Abdomen: Present: normal appearance, soft Vulva: both: normal (still edematous) Uterus: Present: normal, firm Extremities: Present: edema (bilateral- scd in place) Incision: Present: intact (right side of incision closing by secondary intension. cleaned and packed bid. ) - Labs Labs: Abnormal lab results 09/04/16 09/04/16 Range/Units 06:56 06:56 WBC 13.0 H (4.5-11.0) K/mm3 RBC 3.48 L (3.65-5.03) M/mm3 RDW 24.5 H (13.2-15.2) % Plt Count 103 L (140-440) K/mm3 Lymph % (Auto) 10.7 L (13.4-35.0) % Seg Neutrophils % 83.2 H (40.0-70.0) % Seg Neutrophils # 10.8 H (1.8-7.7) K/mm3 Carbon Dioxide 17 L (22-30) mmol/L BUN 28 H (7-17) mg/dL Creatinine 1.3 H (0.7-1.2) mg/dL Calcium 7.3 L (8.4-10.2) mg/dL Total Bilirubin 16.8 H (0.1-1.2) mg/dL Alkaline Phosphatase 162 H (35-129) units/L Total Protein 4.8 L (6.3-8.2) g/dL Albumin 1.6 L (3.9-5) g/dL
--- NOTE | 2016-09-04 10:43 | Gastroenterology Progress Note ---
Assessment and Plan - Patient Problems (1) HELLP (hemolytic anemia/elev liver enzymes/low platelets in ) Current Visit: Yes Status: Acute Qualifiers: Trimester: T Plan to address problem: Improving steadily from GI/liver standpoint. Carolyn little now 16. She may be able to go home 1-2 days from liver standpoint. Subjective Date of service: 09/04/16 Principal diagnosis: Thrombocytopenia-,Jaundice HELLP syndrome- more likely Acute fatty liver dz Interval history: She reports feeling better and getting out of the bed. She c/o serous drainage from the right side of her incision. Objective - Constitutional Vitals: Temp Pulse Resp BP Pulse Ox 97.9 F 69 16 106/62 98 09/04/16 08:34 09/04/16 08:34 09/04/16 08:34 09/04/16 08:34 09/04/16 08:34 General appearance: no acute distress - EENT Eyes: scleral icterus ENT: hearing intact, clear oral mucosa, dentition normal - Neck Neck: supple, normal ROM - Respiratory Respiratory effort: normal Respiratory: bilateral: CTA - Cardiovascular Rhythm: regular - Gastrointestinal General gastrointestinal: Present: soft, non-tender, non-distended, normal bowel sounds - Neurologic Neurological: alert and oriented x3 - Labs CBC & Chem 7: 09/04/16 06:56 09/04/16 06:56 Labs: Laboratory Results - last 24 hr 09/03/16 09/04/16 09/04/16 21:45 06:56 06:56 WBC 13.0 H RBC 3.48 L Hgb 10.9 Hct 33.3 MCV 96 D MCH 31 MCHC 33 RDW 24.5 H Plt Count 103 L Lymph % (Auto) 10.7 L [place] % (Auto) 4.0 Eos % (Auto) 1.6 Baso % (Auto) 0.5 Lymph # 1.4 [place] # 0.5 Eos # 0.2 Baso # 0.1 Seg Neutrophils % 83.2 H Seg Neutrophils # 10.8 H Carbon Dioxide 17 L BUN 28 H Creatinine 1.3 H Estimated GFR 46 BUN/Creatinine Ratio 21.53 Glucose 72 POC Glucose 83 Calcium 7.3 L Total Bilirubin 16.8 H AST 29 ALT 17 Alkaline Phosphatase 162 H Total Protein 4.8 L Albumin 1.6 L Albumin/Globulin Ratio 0.5
[2016-09-04] MEDS: NORMODYNE PO SCH ×2 (11:15→21:11)
[2016-09-04] MEDS: FEOSOL PO SCH ×2 (11:15→21:11)
--- NOTE | 2016-09-04 11:15 | Progress Note ---
Assessment and Plan Assessment and plan: 1. HELLP syndrome - baby delivered through ; supportive care; s/p transfusion PRBC, FFP; LFTs trending down and normalized; platelets slowly trending up; improving 2. SIRS - sepsis suspected, but no evidence of infection; antibiotics discontinued 3. Anemia - combination of anemia/blood loss/hemolytic anemia due to HELLP; s/p total of 6 units PRBCs; hemoglobin stable;continue to monitor H&H 4. Thrombocytopenia - secondary to HELLP; slowly improving 5. Coagulopathy - sec to HELLP; received 2 units FFP; now resolved 6. Acute kidney injury -almost resolved with IV hydration, now creatinine with slight increase; continue IV fluidsand monitor 7. Hyperkalemia - medically treated, resolved 8. Acute encephalopathy - likely secondary to HELLP; resolved 9. Malnutrition - dietitian consulted for supplementation 10. Debility - PT daily 11. S/p 08/13/16 History Interval history: improving, out of bed with assistance, working with PT Hospitalist Physical - Constitutional Vitals: Temp Pulse Resp BP Pulse Ox 97.9 F 69 16 106/62 98 09/04/16 08:34 09/04/16 08:34 09/04/16 08:34 09/04/16 08:34 09/04/16 08:34 General appearance: Present: no acute distress, well-nourished - EENT Eyes: Present: PERRL, EOM intact, scleral icterus. Absent: conjunctival injection - Neck Neck: Present: supple, normal ROM. Absent: masses or JVD - Respiratory Respiratory effort: normal Respiratory: bilateral: CTA, negative: rales, rhonchi - Cardiovascular Rhythm: regular Heart Sounds: Present: S1 & S2. Absent: systolic murmur - Extremities Extremities: no ischemia - Abdominal General gastrointestinal: soft, tender, distended (peripartum), normal bowel sounds Localized gastrointestinal: tender: suprapubic - Psychiatric Psychiatric: cooperative - Neurologic Neurologic: CNII-XII intact, no focal deficits Results - Labs CBC & Chem 7: 09/04/16 06:56 09/04/16 06:56 Labs: Laboratory Last Values WBC 13.0 K/mm3 (4.5-11.0) H 09/04/16 06:56 RBC 3.48 M/mm3 (3.65-5.03) L 09/04/16 06:56 Hgb 10.9 gm/dl (10.1-14.3) 09/04/16 06:56 Hct 33.3 % (30.3-42.9) 09/04/16 06:56 MCV 96 fl (79-97) D 09/04/16 06:56 MCH 31 pg (28-32) 09/04/16 06:56 MCHC 33 % (30-34) 09/04/16 06:56 RDW 24.5 % (13.2-15.2) H 09/04/16 06:56 Plt Count 103 K/mm3 (140-440) L 09/04/16 06:56 Lymph % (Auto) 10.7 % (13.4-35.0) L 09/04/16 06:56 [place] % (Auto) 4.0 % (0.0-7.3) 09/04/16 06:56 Eos % (Auto) 1.6 % (0.0-4.3) 09/04/16 06:56 Baso % (Auto) 0.5 % (0.0-1.8) 09/04/16 06:56 Lymph # 1.4 K/mm3 (1.2-5.4) 09/04/16 06:56 [place] # 0.5 K/mm3 (0.0-0.8) 09/04/16 06:56 Eos # 0.2 K/mm3 (0.0-0.4) 09/04/16 06:56 Baso # 0.1 K/mm3 (0.0-0.1) 09/04/16 06:56 Add Manual Diff Complete 08/31/16 05:20 Total Counted 100 08/31/16 05:20 Seg Neutrophils % 83.2 % (40.0-70.0) H 09/04/16 06:56 Seg Neuts % (Manual) 83.0 % (40.0-70.0) H 08/31/16 05:20 Band Neutrophils % 0 % 08/31/16 05:20 Lymphocytes % (Manual) 5.0 % (13.4-35.0) L 08/31/16 05:20 Reactive Lymphs % (Man) 0 % 08/31/16 05:20 Monocytes % (Manual) 7.0 % (0.0-7.3) 08/31/16 05:20 Eosinophils % (Manual) 5.0 % (0.0-4.3) H 08/31/16 05:20 Basophils % (Manual) 0 % (0.0-1.8) 08/31/16 05:20 Metamyelocytes % 0 % 08/31/16 05:20 Myelocytes % 0 % 08/31/16 05:20 Promyelocytes % 0 % 08/31/16 05:20 Blast Cells % 0 % 08/31/16 05:20 Nucleated RBC % 7.0 % (0.0-0.9) H 08/31/16 05:20 Seg Neutrophils # 10.8 K/mm3 (1.8-7.7) H 09/04/16 06:56 Seg Neutrophils # Man 12.0 K/mm3 (1.8-7.7) H 08/31/16 05:20 Band Neutrophils # 0.0 K/mm3 08/31/16 05:20 Lymphocytes # (Manual) 0.7 K/mm3 (1.2-5.4) L 08/31/16 05:20 Abs React Lymphs (Man) 0.0 K/mm3 08/31/16 05:20 Monocytes # (Manual) 1.0 K/mm3 (0.0-0.8) H 08/31/16 05:20 Eosinophils # (Manual) 0.7 K/mm3 (0.0-0.4) H 08/31/16 05:20 Basophils # (Manual) 0.0 K/mm3 (0.0-0.1) 08/31/16 05:20 Metamyelocytes # 0.0 K/mm3 08/31/16 05:20 Myelocytes # 0.0 K/mm3 08/31/16 05:20 Promyelocytes # 0.0 K/mm3 08/31/16 05:20 Blast Cells # 0.0 K/mm3 08/31/16 05:20 WBC Morphology Not Reportable 08/31/16 05:20 Hypersegmented Neuts Not Reportable 08/31/16 05:20 Hyposegmented Neuts Not Reportable 08/31/16 05:20 Hypogranular Neuts Not Reportable 08/31/16 05:20 Smudge Cells Not Reportable 08/31/16 05:20 Toxic Granulation Not Reportable 08/31/16 05:20 Toxic Vacuolation Not Reportable 08/31/16 05:20 Dohle Bodies Not Reportable 08/31/16 05:20 Pelger-Huet Anomaly Not Reportable 08/31/16 05:20 Alaina Rods Not Reportable 08/31/16 05:20 Platelet Estimate Appears decreased 08/31/16 05:20 Clumped Platelets Not Reportable 08/31/16 05:20 Plt Clumps, EDTA Not Reportable 08/31/16 05:20 Large Platelets Rare 08/31/16 05:20 Giant Platelets Not Reportable 08/31/16 05:20 Platelet Satelliting Not Reportable 08/31/16 05:20 Plt Morphology Comment Not Reportable 08/31/16 05:20 RBC Morphology Not Reportable 08/31/16 05:20 Dimorphic RBCs Not Reportable 08/31/16 05:20 Polychromasia 1+ 08/31/16 05:20 Hypochromasia Not Reportable 08/31/16 05:20 Poikilocytosis Not Reportable 08/31/16 05:20 Anisocytosis 1+ 08/31/16 05:20 Microcytosis Not Reportable 08/31/16 05:20 Macrocytosis Not Reportable 08/31/16 05:20 Spherocytes Not Reportable 08/31/16 05:20 Pappenheimer Bodies Not Reportable 08/31/16 05:20 Sickle Cells Not Reportable 08/31/16 05:20 Target Cells Not Reportable 08/31/16 05:20 Tear Drop Cells Rare 08/31/16 05:20 Ovalocytes Not Reportable 08/31/16 05:20 Helmet Cells Not Reportable 08/31/16 05:20 Whittaker-[place] Bodies Not Reportable 08/31/16 05:20 [place] Rings Not Reportable 08/31/16 05:20 [place] Cells Not Reportable 08/31/16 05:20 Bite Cells Not Reportable 08/31/16 05:20 Crenated Cell Not Reportable 08/31/16 05:20 Elliptocytes Not Reportable 08/31/16 05:20 Acanthocytes (Spur) Not Reportable 08/31/16 05:20 Rouleaux Not Reportable 08/31/16 05:20 Hemoglobin C Crystals Not Reportable 08/31/16 05:20 Schistocytes Not Reportable 08/31/16 05:20 Malaria parasites Not Reportable 08/31/16 05:20 Percent Retic 6.59 % (0.78-2.58) H 08/27/16 11:15 Sickle Cell Screen Negative (Negative) 08/22/16 18:48 Daljit Bodies Not Reportable 08/31/16 05:20 Haptoglobin <15 mg/dL (43-212) L 08/27/16 11:15 Hem Pathologist Commnt No 08/31/16 05:20 PT 15.5 Sec. (12.2-14.9) H 09/03/16 05:51 INR 1.24 (0.87-1.13) H 09/03/16 05:51 APTT 42.3 Sec. (24.2-36.6) H 08/25/16 05:45 POC ABG pH 7.479 (7.35-7.45) H 08/24/16 14:12 POC ABG pCO2 29.6 (35-45) L 08/24/16 14:12 POC ABG pO2 62 (80-105) L 08/24/16 14:12 POC ABG HCO3 21.9 08/24/16 14:12 POC ABG Total CO2 23 08/24/16 14:12 POC ABG O2 Sat 93 08/24/16 14:12 POC ABG Base Excess -2 08/24/16 14:12 FiO2 3 % 08/24/16 14:12 Sodium 140 mmol/L (137-145) 09/03/16 05:19 Potassium 3.9 mmol/L (3.6-5.0) 09/03/16 05:19 Chloride 108.4 mmol/L (98-107) H 09/03/16 05:19 Carbon Dioxide 17 mmol/L (22-30) L 09/04/16 06:56 Anion Gap 18 mmol/L 09/03/16 05:19 BUN 28 mg/dL (7-17) H 09/04/16 06:56 Creatinine 1.3 mg/dL (0.7-1.2) H 09/04/16 06:56 Estimated GFR 46 ml/min 09/04/16 06:56 BUN/Creatinine Ratio 21.53 % 09/04/16 06:56 Glucose 72 mg/dL (65-100) 09/04/16 06:56 POC Glucose 83 (70-105) 09/03/16 21:45 Lactic Acid 2.0 mmol/L (0.7-2.0) 08/29/16 04:30 Calcium 7.3 mg/dL (8.4-10.2) L 09/04/16 06:56 Magnesium 4.5 mg/dL (1.7-2.3) H 08/26/16 04:50 Total Bilirubin 16.8 mg/dL (0.1-1.2) H 09/04/16 06:56 Direct Bilirubin 15.7 mg/dL (0-0.2) H 09/03/16 05:19 Indirect Bilirubin 4.2 mg/dL 09/03/16 05:19 AST 29 units/L (5-40) 09/04/16 06:56 ALT 17 units/L (7-56) 09/04/16 06:56 Alkaline Phosphatase 162 units/L (35-129) H 09/04/16 06:56 Ammonia 44.0 umol/L (25-60) 08/30/16 05:40 Lactate Dehydrogenase 844 units/L (91-180) H 08/27/16 08:40 Total Creatine Kinase 1295 units/L (30-135) H 08/24/16 05:00 NT-Pro-B Natriuret Pep 241.0 pg/mL (0-450) 08/27/16 16:30 Total Protein 4.8 g/dL (6.3-8.2) L 09/04/16 06:56 Albumin 1.6 g/dL (3.9-5) L 09/04/16 06:56 Albumin/Globulin Ratio 0.5 % 09/04/16 06:56 LDL Cholesterol Direct 38 mg/dL (50-130) L 08/23/16 07:50 Vitamin B12 > 2000 pg/mL (211-911) H 08/27/16 11:15 Folate 10.54 ng/mL (7.3-26.0) 08/27/16 11:15 Urine Color [place] (Yellow) 08/27/16 15:20 Urine Turbidity Clear (Clear) 08/27/16 15:20 Urine pH 6.0 (5.0-7.0) 08/27/16 15:20 Ur Specific [place] 1.018 (1.003-1.030) 08/27/16 15:20 Urine Protein 30 mg/dl mg/dL (Negative) 08/27/16 15:20 Urine Glucose (UA) Neg mg/dL (Negative) 08/27/16 15:20 Urine Ketones Neg mg/dL (Negative) 08/27/16 15:20 Urine Blood Mod (Negative) 08/27/16 15:20 Urine Nitrite Neg (Negative) 08/27/16 15:20 Urine Bilirubin Mod (Negative) 08/27/16 15:20 Urine Ictotest Positive (Negative) 08/27/16 15:20 Urine Urobilinogen 4.0 mg/dL (<2.0) 08/27/16 15:20 Ur Leukocyte Esterase Neg (Negative) 08/27/16 15:20 Urine WBC (Auto) 10.0 /HPF (0.0-6.0) H 08/27/16 15:20 Urine RBC (Auto) 7.0 /HPF (0.0-6.0) 08/27/16 15:20 U Epithel Cells (Auto) < 1.0 /HPF (0-13.0) 08/27/16 15:20 Granular Casts 4 /LPF 08/27/16 15:20 Urine Mucus Few /HPF 08/27/16 15:20 Urine Opiates Screen Presumptive negative 08/22/16 18:30 Urine Methadone Screen Presumptive negative 08/22/16 18:30 Ur Barbiturates Screen Presumptive negative 08/22/16 18:30 Ur Phencyclidine Scrn Presumptive negative 08/22/16 18:30 Ur Amphetamines Screen Presumptive negative 08/22/16 18:30 U Benzodiazepines Scrn Presumptive negative 08/22/16 18:30 Urine Cocaine Screen Presumptive negative 08/22/16 18:30 U Marijuana (THC) Screen Presumptive negative 08/22/16 18:30 Drugs of Abuse Note Disclamer 08/22/16 18:30 RPR Nonreactive (Nonreactive) 08/22/16 18:34 CMV IgG Ab 2.92 (<=0.90) H 08/22/16 18:34 CMV IgM Ab <0.2 (()) 08/22/16 18:34 CMV 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/mL See scanned report 08/23/16 13:03 Hepatitis A IgM Ab -1 (NonReactive) 08/27/16 11:15 Hep Bs Antigen Non-reactive (Negative) 08/22/16 18:34 Hepatitis C Antibody Non-reactive (NonReactive) 08/22/16 18:34 Herpes Simplex Source Swab (()) 08/25/16 11:45 HSV I DNA PCR Not detected (Not Detected) 08/25/16 11:45 HSV II DNA PCR Not detected (Not Detected) 08/25/16 11:45 HIV 1&2 Antibody Rapid Non react (Non React) 08/23/16 09:25 HIV P24 Antigen Non react (Non React) 08/23/16 09:25 Rubella IgG Antibody Immune (Immune) 08/22/16 18:34 Rubella IgM Antibody <0.90 (<0.90) 08/22/16 18:34 Schistocytes Smear Rare 08/26/16 04:50 Toxoplasma IgG Ab <=0.90 (<=0.90) 08/22/16 18:34 Toxoplasma IgM Ab Negative (Negative) 08/22/16 18:34 Miscellaneous Test Flexitest 1 08/28/16 17:41 Blood Type O NEGATIVE 08/31/16 12:15 Antibody Screen Positive 08/31/16 12:15 Antibody Identification Anti-D (Passively Aquired) 08/31/16 12:15 Direct Antiglob Test Negative 08/27/16 08:20 JYOTI, Poly Interpret Negative 08/27/16 08:20 KB % Cells Negative 08/22/16 Unknown Crossmatch See Detail 08/31/16 12:15 Pre-Trans JYOTI Negative 08/27/16 15:20 Pre-Trans JYOTI Poly Negative 08/27/16 15:20 Post-Trans Blood Type O negative 08/27/16 15:20 Post-Trans JYOTI Negative 08/27/16 15:20 Post-Trans JYOTI Poly Negative 08/27/16 15:20
[2016-09-05] MEDS: KEFLEX PO SCH ×4 (05:27→19:01)
[2016-09-05] MEDS: NORMODYNE PO SCH ×2 (10:24→22:33)
[2016-09-05] MEDS: FEOSOL PO SCH ×2 (10:25→22:33)
--- NOTE | 2016-09-05 10:28 | Progress Note ---
Assessment and Plan Assessment and plan: 1. HELLP syndrome - baby delivered through ; supportive care; s/p transfusion PRBC, FFP; LFTs trending down and normalized; platelets slowly trending up; improving 2. SIRS - sepsis suspected, but no evidence of infection; antibiotics discontinued 3. Anemia - combination of anemia/blood loss/hemolytic anemia due to HELLP; s/p total of 6 units PRBCs; hemoglobin stable;continue to monitor H&H 4. Thrombocytopenia - secondary to HELLP; slowly improving 5. Coagulopathy - sec to HELLP; received 2 units FFP; now resolved 6. Acute kidney injury -almost resolved with IV hydration, now creatinine with slight increase; continue IV fluids and monitor; todays' labs pending 7. Hyperkalemia - medically treated, resolved 8. Acute encephalopathy - likely secondary to HELLP; resolved 9. Malnutrition - dietitian consulted for supplementation 10. Debility - PT daily 11. S/p 08/13/16 History Interval history: improving, working with PT Hospitalist Physical - Constitutional Vitals: Temp Pulse Resp BP Pulse Ox 97.9 F 81 20 118/62 98 09/05/16 10:19 09/05/16 10:19 09/05/16 10:19 09/05/16 10:19 09/05/16 10:19 General appearance: Present: no acute distress, well-nourished - EENT Eyes: Present: PERRL, EOM intact, scleral icterus. Absent: conjunctival injection - Neck Neck: Present: supple, normal ROM. Absent: masses or JVD - Respiratory Respiratory effort: normal Respiratory: bilateral: CTA, negative: rhonchi, wheezing - Cardiovascular Rhythm: regular Heart Sounds: Present: S1 & S2. Absent: systolic murmur - Extremities Extremities: no ischemia Extremity abnormal: edema - Abdominal General gastrointestinal: soft, tender, distended (peripartum), normal bowel sounds Localized gastrointestinal: tender: suprapubic - Integumentary Integumentary: Present: warm, dry, jaundice. Absent: rash - Neurologic Neurologic: CNII-XII intact, no focal deficits Results - Labs CBC & Chem 7: 09/04/16 06:56 09/04/16 06:56 Labs: Laboratory Last Values WBC 13.0 K/mm3 (4.5-11.0) H 09/04/16 06:56 RBC 3.48 M/mm3 (3.65-5.03) L 09/04/16 06:56 Hgb 10.9 gm/dl (10.1-14.3) 09/04/16 06:56 Hct 33.3 % (30.3-42.9) 09/04/16 06:56 MCV 96 fl (79-97) D 09/04/16 06:56 MCH 31 pg (28-32) 09/04/16 06:56 MCHC 33 % (30-34) 09/04/16 06:56 RDW 24.5 % (13.2-15.2) H 09/04/16 06:56 Plt Count 103 K/mm3 (140-440) L 09/04/16 06:56 Lymph % (Auto) 10.7 % (13.4-35.0) L 09/04/16 06:56 [place] % (Auto) 4.0 % (0.0-7.3) 09/04/16 06:56 Eos % (Auto) 1.6 % (0.0-4.3) 09/04/16 06:56 Baso % (Auto) 0.5 % (0.0-1.8) 09/04/16 06:56 Lymph # 1.4 K/mm3 (1.2-5.4) 09/04/16 06:56 [place] # 0.5 K/mm3 (0.0-0.8) 09/04/16 06:56 Eos # 0.2 K/mm3 (0.0-0.4) 09/04/16 06:56 Baso # 0.1 K/mm3 (0.0-0.1) 09/04/16 06:56 Add Manual Diff Complete 08/31/16 05:20 Total Counted 100 08/31/16 05:20 Seg Neutrophils % 83.2 % (40.0-70.0) H 09/04/16 06:56 Seg Neuts % (Manual) 83.0 % (40.0-70.0) H 08/31/16 05:20 Band Neutrophils % 0 % 08/31/16 05:20 Lymphocytes % (Manual) 5.0 % (13.4-35.0) L 08/31/16 05:20 Reactive Lymphs % (Man) 0 % 08/31/16 05:20 Monocytes % (Manual) 7.0 % (0.0-7.3) 08/31/16 05:20 Eosinophils % (Manual) 5.0 % (0.0-4.3) H 08/31/16 05:20 Basophils % (Manual) 0 % (0.0-1.8) 08/31/16 05:20 Metamyelocytes % 0 % 08/31/16 05:20 Myelocytes % 0 % 08/31/16 05:20 Promyelocytes % 0 % 08/31/16 05:20 Blast Cells % 0 % 08/31/16 05:20 Nucleated RBC % 7.0 % (0.0-0.9) H 08/31/16 05:20 Seg Neutrophils # 10.8 K/mm3 (1.8-7.7) H 09/04/16 06:56 Seg Neutrophils # Man 12.0 K/mm3 (1.8-7.7) H 08/31/16 05:20 Band Neutrophils # 0.0 K/mm3 08/31/16 05:20 Lymphocytes # (Manual) 0.7 K/mm3 (1.2-5.4) L 08/31/16 05:20 Abs React Lymphs (Man) 0.0 K/mm3 08/31/16 05:20 Monocytes # (Manual) 1.0 K/mm3 (0.0-0.8) H 08/31/16 05:20 Eosinophils # (Manual) 0.7 K/mm3 (0.0-0.4) H 08/31/16 05:20 Basophils # (Manual) 0.0 K/mm3 (0.0-0.1) 08/31/16 05:20 Metamyelocytes # 0.0 K/mm3 08/31/16 05:20 Myelocytes # 0.0 K/mm3 08/31/16 05:20 Promyelocytes # 0.0 K/mm3 08/31/16 05:20 Blast Cells # 0.0 K/mm3 08/31/16 05:20 WBC Morphology Not Reportable 08/31/16 05:20 Hypersegmented Neuts Not Reportable 08/31/16 05:20 Hyposegmented Neuts Not Reportable 08/31/16 05:20 Hypogranular Neuts Not Reportable 08/31/16 05:20 Smudge Cells Not Reportable 08/31/16 05:20 Toxic Granulation Not Reportable 08/31/16 05:20 Toxic Vacuolation Not Reportable 08/31/16 05:20 Dohle Bodies Not Reportable 08/31/16 05:20 Pelger-Huet Anomaly Not Reportable 08/31/16 05:20 Alaina Rods Not Reportable 08/31/16 05:20 Platelet Estimate Appears decreased 08/31/16 05:20 Clumped Platelets Not Reportable 08/31/16 05:20 Plt Clumps, EDTA Not Reportable 08/31/16 05:20 Large Platelets Rare 08/31/16 05:20 Giant Platelets Not Reportable 08/31/16 05:20 Platelet Satelliting Not Reportable 08/31/16 05:20 Plt Morphology Comment Not Reportable 08/31/16 05:20 RBC Morphology Not Reportable 08/31/16 05:20 Dimorphic RBCs Not Reportable 08/31/16 05:20 Polychromasia 1+ 08/31/16 05:20 Hypochromasia Not Reportable 08/31/16 05:20 Poikilocytosis Not Reportable 08/31/16 05:20 Anisocytosis 1+ 08/31/16 05:20 Microcytosis Not Reportable 08/31/16 05:20 Macrocytosis Not Reportable 08/31/16 05:20 Spherocytes Not Reportable 08/31/16 05:20 Pappenheimer Bodies Not Reportable 08/31/16 05:20 Sickle Cells Not Reportable 08/31/16 05:20 Target Cells Not Reportable 08/31/16 05:20 Tear Drop Cells Rare 08/31/16 05:20 Ovalocytes Not Reportable 08/31/16 05:20 Helmet Cells Not Reportable 08/31/16 05:20 Whittaker-[place] Bodies Not Reportable 08/31/16 05:20 [place] Rings Not Reportable 08/31/16 05:20 [place] Cells Not Reportable 08/31/16 05:20 Bite Cells Not Reportable 08/31/16 05:20 Crenated Cell Not Reportable 08/31/16 05:20 Elliptocytes Not Reportable 08/31/16 05:20 Acanthocytes (Spur) Not Reportable 08/31/16 05:20 Rouleaux Not Reportable 08/31/16 05:20 Hemoglobin C Crystals Not Reportable 08/31/16 05:20 Schistocytes Not Reportable 08/31/16 05:20 Malaria parasites Not Reportable 08/31/16 05:20 Percent Retic 6.59 % (0.78-2.58) H 08/27/16 11:15 Sickle Cell Screen Negative (Negative) 08/22/16 18:48 Daljit Bodies Not Reportable 08/31/16 05:20 Haptoglobin <15 mg/dL (43-212) L 08/27/16 11:15 Hem Pathologist Commnt No 08/31/16 05:20 PT 15.5 Sec. (12.2-14.9) H 09/03/16 05:51 INR 1.24 (0.87-1.13) H 09/03/16 05:51 APTT 42.3 Sec. (24.2-36.6) H 08/25/16 05:45 POC ABG pH 7.479 (7.35-7.45) H 08/24/16 14:12 POC ABG pCO2 29.6 (35-45) L 08/24/16 14:12 POC ABG pO2 62 (80-105) L 08/24/16 14:12 POC ABG HCO3 21.9 08/24/16 14:12 POC ABG Total CO2 23 08/24/16 14:12 POC ABG O2 Sat 93 08/24/16 14:12 POC ABG Base Excess -2 08/24/16 14:12 FiO2 3 % 08/24/16 14:12 Sodium 140 mmol/L (137-145) 09/03/16 05:19 Potassium 3.9 mmol/L (3.6-5.0) 09/03/16 05:19 Chloride 108.4 mmol/L (98-107) H 09/03/16 05:19 Carbon Dioxide 17 mmol/L (22-30) L 09/04/16 06:56 Anion Gap 18 mmol/L 09/03/16 05:19 BUN 28 mg/dL (7-17) H 09/04/16 06:56 Creatinine 1.3 mg/dL (0.7-1.2) H 09/04/16 06:56 Estimated GFR 46 ml/min 09/04/16 06:56 BUN/Creatinine Ratio 21.53 % 09/04/16 06:56 Glucose 72 mg/dL (65-100) 09/04/16 06:56 POC Glucose 92 (70-105) 09/04/16 08:19 Lactic Acid 2.0 mmol/L (0.7-2.0) 08/29/16 04:30 Calcium 7.3 mg/dL (8.4-10.2) L 09/04/16 06:56 Magnesium 4.5 mg/dL (1.7-2.3) H 08/26/16 04:50 Total Bilirubin 16.8 mg/dL (0.1-1.2) H 09/04/16 06:56 Direct Bilirubin 15.7 mg/dL (0-0.2) H 09/03/16 05:19 Indirect Bilirubin 4.2 mg/dL 09/03/16 05:19 AST 29 units/L (5-40) 09/04/16 06:56 ALT 17 units/L (7-56) 09/04/16 06:56 Alkaline Phosphatase 162 units/L (35-129) H 09/04/16 06:56 Ammonia 44.0 umol/L (25-60) 08/30/16 05:40 Lactate Dehydrogenase 844 units/L (91-180) H 08/27/16 08:40 Total Creatine Kinase 1295 units/L (30-135) H 08/24/16 05:00 NT-Pro-B Natriuret Pep 241.0 pg/mL (0-450) 08/27/16 16:30 Total Protein 4.8 g/dL (6.3-8.2) L 09/04/16 06:56 Albumin 1.6 g/dL (3.9-5) L 09/04/16 06:56 Albumin/Globulin Ratio 0.5 % 09/04/16 06:56 LDL Cholesterol Direct 38 mg/dL (50-130) L 08/23/16 07:50 Vitamin B12 > 2000 pg/mL (211-911) H 08/27/16 11:15 Folate 10.54 ng/mL (7.3-26.0) 08/27/16 11:15 Urine Color [place] (Yellow) 08/27/16 15:20 Urine Turbidity Clear (Clear) 08/27/16 15:20 Urine pH 6.0 (5.0-7.0) 08/27/16 15:20 Ur Specific [place] 1.018 (1.003-1.030) 08/27/16 15:20 Urine Protein 30 mg/dl mg/dL (Negative) 08/27/16 15:20 Urine Glucose (UA) Neg mg/dL (Negative) 08/27/16 15:20 Urine Ketones Neg mg/dL (Negative) 08/27/16 15:20 Urine Blood Mod (Negative) 08/27/16 15:20 Urine Nitrite Neg (Negative) 08/27/16 15:20 Urine Bilirubin Mod (Negative) 08/27/16 15:20 Urine Ictotest Positive (Negative) 08/27/16 15:20 Urine Urobilinogen 4.0 mg/dL (<2.0) 08/27/16 15:20 Ur Leukocyte Esterase Neg (Negative) 08/27/16 15:20 Urine WBC (Auto) 10.0 /HPF (0.0-6.0) H 08/27/16 15:20 Urine RBC (Auto) 7.0 /HPF (0.0-6.0) 08/27/16 15:20 U Epithel Cells (Auto) < 1.0 /HPF (0-13.0) 08/27/16 15:20 Granular Casts 4 /LPF 08/27/16 15:20 Urine Mucus Few /HPF 08/27/16 15:20 Urine Opiates Screen Presumptive negative 08/22/16 18:30 Urine Methadone Screen Presumptive negative 08/22/16 18:30 Ur Barbiturates Screen Presumptive negative 08/22/16 18:30 Ur Phencyclidine Scrn Presumptive negative 08/22/16 18:30 Ur Amphetamines Screen Presumptive negative 08/22/16 18:30 U Benzodiazepines Scrn Presumptive negative 08/22/16 18:30 Urine Cocaine Screen Presumptive negative 08/22/16 18:30 U Marijuana (THC) Screen Presumptive negative 08/22/16 18:30 Drugs of Abuse Note Disclamer 08/22/16 18:30 RPR Nonreactive (Nonreactive) 08/22/16 18:34 CMV IgG Ab 2.92 (<=0.90) H 08/22/16 18:34 CMV IgM Ab <0.2 (()) 01/21/17 18:34 CMV DNA 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 See scanned report 08/23/16 13:03 Hepatitis A IgM Ab -1 (NonReactive) 08/27/16 11:15 Hep Bs Antigen Non-reactive (Negative) 08/22/16 18:34 Hepatitis C Antibody Non-reactive (NonReactive) 08/22/16 18:34 Herpes Simplex Source Swab (()) 08/25/16 11:45 HSV I DNA PCR Not detected (Not Detected) 08/25/16 11:45 HSV II DNA PCR Not detected (Not Detected) 08/25/16 11:45 HIV 1&2 Antibody Rapid Non react (Non React) 08/23/16 09:25 HIV P24 Antigen Non react (Non React) 08/23/16 09:25 Rubella IgG Antibody Immune (Immune) 08/22/16 18:34 Rubella IgM Antibody <0.90 (<0.90) 08/22/16 18:34 Schistocytes Smear Rare 08/26/16 04:50 Toxoplasma IgG Ab <=0.90 (<=0.90) 08/22/16 18:34 Toxoplasma IgM Ab Negative (Negative) 08/22/16 18:34 Miscellaneous Test Flexitest 1 08/28/16 17:41 Blood Type O NEGATIVE 08/31/16 12:15 Antibody Screen Positive 08/31/16 12:15 Antibody Identification Anti-D (Passively Aquired) 08/31/16 12:15 Direct Antiglob Test Negative 08/27/16 08:20 JYOTI, Poly Interpret Negative 08/27/16 08:20 KB % Cells Negative 08/22/16 Unknown Crossmatch See Detail 08/31/16 12:15 Pre-Trans JYOTI Negative 08/27/16 15:20 Pre-Trans JYOTI Poly Negative 08/27/16 15:20 Post-Trans Blood Type O negative 08/27/16 15:20 Post-Trans JYOTI Negative 08/27/16 15:20 Post-Trans JYOTI Poly Negative 08/27/16 15:20
--- NOTE | 2016-09-05 10:32 | Gastroenterology Progress Note ---
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 Acute fatty liver dz Interval history: - no specific GI complaints overnight Objective - Constitutional Vitals: Temp Pulse Resp BP Pulse Ox 97.9 F 81 20 118/62 98 09/05/16 10:19 09/05/16 10:19 09/05/16 10:19 09/05/16 10:19 09/05/16 10:19 General appearance: no acute distress - EENT Eyes: scleral icterus - Respiratory Respiratory: bilateral: CTA - Cardiovascular Rhythm: regular Heart Sounds: Present: S1 & S2 - Gastrointestinal General gastrointestinal: Present: soft, non-tender - Labs CBC & Chem 7: 09/04/16 06:56 09/04/16 06:56 Labs: Laboratory Results - last 24 hr 09/04/16 08:19 POC Glucose 92
[2016-09-05 11:39] LABS: Basophils % (Auto) 0.6 % (0.0-1.8); Eosinophils % (Auto) 2.1 % (0.0-4.3); Hematocrit 27.5 % (30.3-42.9); Hemoglobin 9.3 gm/dl (10.1-14.3); Mean Corpuscular HGB Conc 34 % (30-34); Mean Corpuscular Hemoglobin 32 pg (28-32); Mean Corpuscular Volume 95 fl (79-97); Platelet Count 116 K/mm3 (140-440); Red Blood Count 2.89 M/mm3 (3.65-5.03); White Blood Count 8.7 K/mm3 (4.5-11.0)
[2016-09-05 11:45] LABS: Albumin 1.5 g/dL (3.9-5); Albumin/Globulin Ratio 0.5 %; BUN/Creatinine Ratio 16.25; Bilirubin,Total 12.2 mg/dL (0.1-1.2); Calcium 7.1 mg/dL (8.4-10.2); Chloride 104.4 mmol/L (98-107); Potassium 3.6 mmol/L (3.6-5.0); Total Protein 4.6 g/dL (6.3-8.2)
[2016-09-05] MEDS: PERCOCET 5/325 PO PRN (13:17)
[2016-09-05] MEDS ORDERED: LASIX PO ONE (14:05)
--- NOTE | 2016-09-05 14:15 | Progress Note ---
Assessment and Plan POD 15, s/p acute fatty liver disease of - improving. Pt ambulating, and voiding. Wound being cleaned and dressed daily. lasix x 1 today. Subjective - Subjective Date of service: 09/05/16 Principal diagnosis: Thrombocytopenia-,Jaundice HELLP syndrome- more likely Acute fatty liver dz Interval history: Pt pod 13 s/p primary c/s. Improving liver and renal functions. H & H improved since last transfusion of two units of PRBCs. Pt current on telemetry unit. pt admits to flatus. diet advanced tolerated well. pt ambulating today, Voiding without difficulty. Will D/C central line today. lasix po today. Patient reports: appetite normal, voiding normally, pain well controlled : transported Objective - Vital Signs Latest vital signs: Vital Signs Temp Pulse Pulse Pulse Resp BP BP 09/05/16 10:24 81 118/62 09/05/16 10:19 97.9 F 81 20 118/62 09/05/16 10:00 75 09/05/16 06:19 98.2 F 83 18 09/05/16 01:49 98.5 F 74 18 09/04/16 22:01 98.5 F 91 H 18 09/04/16 19:53 72 09/04/16 16:00 98.6 F 83 18 BP Pulse Ox 09/05/16 10:24 09/05/16 10:19 98 09/05/16 10:00 09/05/16 06:19 101/54 100 09/05/16 01:49 103/55 100 09/04/16 22:01 116/66 09/04/16 19:53 09/04/16 16:00 122/79 98 Intake and Output 09/04/16 09/05/16 09/05/16 22:59 06:59 14:59 Intake Total 240 240 Output Total 400 Balance 240 -160 Intake: Oral 240 240 Output: Urine 400 Indwelling Catheter 400 Other: Total, Intake Amount 240 240 Total, Output Amount 400 Voiding Method Bedpan Toilet # Voids Indwelling Catheter 3 1 # Bowel Movements 0 Weight 90.2 kg - Exam Breasts: Present: deferred Cardiovascular: Present: Regular rate, Normal S1, Normal S2 Lungs: Present: Clear to auscultation Abdomen: Present: normal appearance, soft, normal bowel sounds, other (wound cleaned and ressed this am. instructed on technique. ) Uterus: Present: normal, firm Extremities: Present: normal Deep Tendon Reflex Grade: Normal +2 Incision: Present: normal, dry, intact - Labs Labs: Abnormal lab results 09/05/16 09/05/16 Range/Units 11:17 11:17 RBC 2.89 L (3.65-5.03) M/mm3 Hgb 9.3 L (10.1-14.3) gm/dl Hct 27.5 L (30.3-42.9) % RDW 25.0 H (13.2-15.2) % Plt Count 116 L (140-440) K/mm3 Lymph % (Auto) 12.2 L (13.4-35.0) % Lymph # 1.1 L (1.2-5.4) K/mm3 Seg Neutrophils % 78.6 H (40.0-70.0) % Sodium 134 L (137-145) mmol/L Carbon Dioxide 18 L (22-30) mmol/L BUN 26 H (7-17) mg/dL Creatinine 1.6 H (0.7-1.2) mg/dL Glucose 112 H (65-100) mg/dL Calcium 7.1 L (8.4-10.2) mg/dL Total Bilirubin 12.2 H (0.1-1.2) mg/dL Alkaline Phosphatase 149 H (35-129) units/L Total Protein 4.6 L (6.3-8.2) g/dL Albumin 1.5 L (3.9-5) g/dL
--- NOTE | 2016-09-05 18:02 | Hem/Onc Progress Note ---
Assessment and Plan 41 yof recovering from HELLP syndrome -platelets, bilirubin improving - cont to encourage ambulation and supportive care Subjective Date of service: 09/05/16 Principal diagnosis: HELLP Interval history: small amt vaginal bleeding but no significant bleeding Objective - Constitutional Vitals: Last Vital Signs Temp 97.9 F 09/05/16 10:19 Pulse 81 09/05/16 10:24 Resp 20 09/05/16 10:19 BP 118/62 09/05/16 10:24 Pulse Ox 98 09/05/16 10:19 - EENT Eyes: scleral icterus - Neck Neck: supple - Respiratory Respiratory effort: Positive: normal - Cardiovascular Rhythm: regular Extremities: No edema - Labs Lab Results: Laboratory Results - last 24 hr 09/04/16 09/05/16 09/05/16 08:19 11:17 11:17 WBC 8.7 RBC 2.89 L Hgb 9.3 L Hct 27.5 L MCV 95 MCH 32 MCHC 34 RDW 25.0 H Plt Count 116 L Lymph % (Auto) 12.2 L [place] % (Auto) 6.5 Eos % (Auto) 2.1 Baso % (Auto) 0.6 Lymph # 1.1 L [place] # 0.6 Eos # 0.2 Baso # 0.1 Seg Neutrophils % 78.6 H Seg Neutrophils # 6.8 Sodium 134 L Potassium 3.6 Chloride 104.4 Carbon Dioxide 18 L Anion Gap 15 BUN 26 H Creatinine 1.6 H Estimated GFR 36 BUN/Creatinine Ratio 16.25 Glucose 112 H POC Glucose 92 Calcium 7.1 L Total Bilirubin 12.2 H AST 23 ALT 16 Alkaline Phosphatase 149 H Total Protein 4.6 L Albumin 1.5 L Albumin/Globulin Ratio 0.5
[2016-09-06] MEDS: KEFLEX PO SCH ×4 (01:13→17:10)
[2016-09-06] MEDS ORDERED: LASIX PO ONE ×2 (08:20→12:00)
--- NOTE | 2016-09-06 08:27 | Progress Note ---
Assessment and Plan pod 14. pt much improved. jaundice improving. liver fuctions improving. will check labs from today . will D/c home when GI okays. Subjective - Subjective Date of service: 09/06/16 Principal diagnosis: Acute Fatty liver disease resolvving Interval history: Pt pod 14 s/p primary c/s. Improving liver and renal functions. pt admits to flatus. diet advanced tolerated well. pt ambulating today, Voiding without difficulty. Will D/C central line today. lasix po today. pt seen by wound care nurse recommending once daily dressing change. Consider d/c tomorrow if approved by GI. Patient reports: appetite normal, voiding normally, pain well controlled [place]: transported Objective - Vital Signs Latest vital signs: Vital Signs Temp Pulse Pulse Pulse Resp BP BP 09/06/16 06:24 98.1 F 66 18 09/06/16 01:29 98.2 F 77 18 09/05/16 22:14 98.2 F 71 20 09/05/16 10:24 81 118/62 09/05/16 10:19 97.9 F 81 20 118/62 09/05/16 10:00 75 BP Pulse Ox 09/06/16 06:24 113/66 99 09/06/16 01:29 111/67 99 09/05/16 22:14 118/71 100 09/05/16 10:24 09/05/16 10:19 98 09/05/16 10:00 Intake and Output 09/05/16 09/06/16 09/06/16 22:59 06:59 14:59 Intake Total 240 Balance 240 Intake: Oral 240 Other: Total, Intake Amount 240 Voiding Method Toilet Weight 87.4 kg - Exam Breasts: Present: deferred Cardiovascular: Present: Regular rate, Normal S1, Normal S2 Lungs: Present: Clear to auscultation Abdomen: Present: normal appearance, soft Vulva: both: normal Uterus: Present: normal, firm Extremities: Present: normal Incision: Present: skin (right side of incision healing by secondary intension. appox 10 ml of serosanginous drainage today. pt was ambulating more last pm) - Labs Labs: Abnormal lab results 09/05/16 09/05/16 Range/Units 11:17 11:17 RBC 2.89 L (3.65-5.03) M/mm3 Hgb 9.3 L (10.1-14.3) gm/dl Hct 27.5 L (30.3-42.9) % RDW 25.0 H (13.2-15.2) % Plt Count 116 L (140-440) K/mm3 Lymph % (Auto) 12.2 L (13.4-35.0) % Lymph # 1.1 L (1.2-5.4) K/mm3 Seg Neutrophils % 78.6 H (40.0-70.0) % Sodium 134 L (137-145) mmol/L Carbon Dioxide 18 L (22-30) mmol/L BUN 26 H (7-17) mg/dL Creatinine 1.6 H (0.7-1.2) mg/dL Glucose 112 H (65-100) mg/dL Calcium 7.1 L (8.4-10.2) mg/dL Total Bilirubin 12.2 H (0.1-1.2) mg/dL Alkaline Phosphatase 149 H (35-129) units/L Total Protein 4.6 L (6.3-8.2) g/dL Albumin 1.5 L (3.9-5) g/dL
--- NOTE | 2016-09-06 09:51 | Progress Note ---
Assessment and Plan Assessment and plan: 1. HELLP syndrome - baby delivered through ; supportive care; s/p transfusion PRBC, FFP; LFTs trending down and normalized; platelets continue to trend up; improving 2. SIRS - sepsis suspected, but no evidence of infection; antibiotics discontinued 3. Anemia - combination of anemia/blood loss/hemolytic anemia due to HELLP; s/p total of 6 units PRBCs; hemoglobin stable;continue to monitor H&H 4. Thrombocytopenia - secondary to HELLP; slowly improving 5. Coagulopathy - sec to HELLP; received 2 units FFP; now resolved 6. Acute kidney injury -almost resolved with IV hydration, now creatinine going up; restart ivf, encourage po intake; monitor 7. Hyperkalemia - medically treated, resolved 8. Acute encephalopathy - likely secondary to HELLP; resolved 9. Malnutrition - dietitian consulted for supplementation 10. Debility - PT daily 11. S/p 08/13/16 History Interval history: continues to improve clinically Hospitalist Physical - Constitutional Vitals: Temp Pulse Resp BP Pulse Ox 98.1 F 66 18 113/66 99 09/06/16 06:24 09/06/16 06:24 09/06/16 06:24 09/06/16 06:24 09/06/16 06:24 General appearance: Present: no acute distress - EENT Eyes: Present: PERRL, EOM intact, scleral icterus. Absent: conjunctival injection - Neck Neck: Present: supple, normal ROM. Absent: masses or JVD - Respiratory Respiratory effort: normal Respiratory: bilateral: CTA, negative: rales, rhonchi, wheezing - Cardiovascular Rhythm: regular Heart Sounds: Present: S1 & S2. Absent: systolic murmur - Extremities Extremities: no ischemia Extremity abnormal: edema - Abdominal General gastrointestinal: soft, tender (slightly tender to paplation lower abdomen), distended (peripartum), normal bowel sounds - Integumentary Integumentary: Present: warm, dry, jaundice. Absent: rash - Psychiatric Psychiatric: cooperative - Neurologic Neurologic: CNII-XII intact, no focal deficits Results - Labs CBC & Chem 7: 09/05/16 11:17 02 11:17 Labs: Laboratory Last Values WBC 8.7 K/mm3 (4.5-11.0) 09/05/16 11:17 RBC 2.89 M/mm3 (3.65-5.03) L 09/05/16 11:17 Hgb 9.3 gm/dl (10.1-14.3) L 09/05/16 11:17 Hct 27.5 % (30.3-42.9) L 09/05/16 11:17 MCV 95 fl (79-97) 09/05/16 11:17 MCH 32 pg (28-32) 09/05/16 11:17 MCHC 34 % (30-34) 09/05/16 11:17 RDW 25.0 % (13.2-15.2) H 09/05/16 11:17 Plt Count 116 K/mm3 (140-440) L 09/05/16 11:17 Lymph % (Auto) 12.2 % (13.4-35.0) L 09/05/16 11:17 [place] % (Auto) 6.5 % (0.0-7.3) 09/05/16 11:17 Eos % (Auto) 2.1 % (0.0-4.3) 09/05/16 11:17 Baso % (Auto) 0.6 % (0.0-1.8) 09/05/16 11:17 Lymph # 1.1 K/mm3 (1.2-5.4) L 09/05/16 11:17 [place] # 0.6 K/mm3 (0.0-0.8) 09/05/16 11:17 Eos # 0.2 K/mm3 (0.0-0.4) 09/05/16 11:17 Baso # 0.1 K/mm3 (0.0-0.1) 09/05/16 11:17 Add Manual Diff Complete 08/31/16 05:20 Total Counted 100 08/31/16 05:20 Seg Neutrophils % 78.6 % (40.0-70.0) H 09/05/16 11:17 Seg Neuts % (Manual) 83.0 % (40.0-70.0) H 08/31/16 05:20 Band Neutrophils % 0 % 08/31/16 05:20 Lymphocytes % (Manual) 5.0 % (13.4-35.0) L 08/31/16 05:20 Reactive Lymphs % (Man) 0 % 08/31/16 05:20 Monocytes % (Manual) 7.0 % (0.0-7.3) 08/31/16 05:20 Eosinophils % (Manual) 5.0 % (0.0-4.3) H 08/31/16 05:20 Basophils % (Manual) 0 % (0.0-1.8) 08/31/16 05:20 Metamyelocytes % 0 % 08/31/16 05:20 Myelocytes % 0 % 08/31/16 05:20 Promyelocytes % 0 % 08/31/16 05:20 Blast Cells % 0 % 08/31/16 05:20 Nucleated RBC % 7.0 % (0.0-0.9) H 08/31/16 05:20 Seg Neutrophils # 6.8 K/mm3 (1.8-7.7) 09/05/16 11:17 Seg Neutrophils # Man 12.0 K/mm3 (1.8-7.7) H 08/31/16 05:20 Band Neutrophils # 0.0 K/mm3 08/31/16 05:20 Lymphocytes # (Manual) 0.7 K/mm3 (1.2-5.4) L 08/31/16 05:20 Abs React Lymphs (Man) 0.0 K/mm3 08/31/16 05:20 Monocytes # (Manual) 1.0 K/mm3 (0.0-0.8) H 08/31/16 05:20 Eosinophils # (Manual) 0.7 K/mm3 (0.0-0.4) H 08/31/16 05:20 Basophils # (Manual) 0.0 K/mm3 (0.0-0.1) 08/31/16 05:20 Metamyelocytes # 0.0 K/mm3 08/31/16 05:20 Myelocytes # 0.0 K/mm3 08/31/16 05:20 Promyelocytes # 0.0 K/mm3 08/31/16 05:20 Blast Cells # 0.0 K/mm3 08/31/16 05:20 WBC Morphology Not Reportable 08/31/16 05:20 Hypersegmented Neuts Not Reportable 08/31/16 05:20 Hyposegmented Neuts Not Reportable 08/31/16 05:20 Hypogranular Neuts Not Reportable 08/31/16 05:20 Smudge Cells Not Reportable 08/31/16 05:20 Toxic Granulation Not Reportable 08/31/16 05:20 Toxic Vacuolation Not Reportable 08/31/16 05:20 Dohle Bodies Not Reportable 08/31/16 05:20 Pelger-Huet Anomaly Not Reportable 08/31/16 05:20 Alaina Rods Not Reportable 08/31/16 05:20 Platelet Estimate Appears decreased 08/31/16 05:20 Clumped Platelets Not Reportable 08/31/16 05:20 Plt Clumps, EDTA Not Reportable 08/31/16 05:20 Large Platelets Rare 08/31/16 05:20 Giant Platelets Not Reportable 08/31/16 05:20 Platelet Satelliting Not Reportable 08/31/16 05:20 Plt Morphology Comment Not Reportable 08/31/16 05:20 RBC Morphology Not Reportable 08/31/16 05:20 Dimorphic RBCs Not Reportable 08/31/16 05:20 Polychromasia 1+ 08/31/16 05:20 Hypochromasia Not Reportable 08/31/16 05:20 Poikilocytosis Not Reportable 08/31/16 05:20 Anisocytosis 1+ 08/31/16 05:20 Microcytosis Not Reportable 08/31/16 05:20 Macrocytosis Not Reportable 08/31/16 05:20 Spherocytes Not Reportable 08/31/16 05:20 Pappenheimer Bodies Not Reportable 08/31/16 05:20 Sickle Cells Not Reportable 08/31/16 05:20 Target Cells Not Reportable 08/31/16 05:20 Tear Drop Cells Rare 08/31/16 05:20 Ovalocytes Not Reportable 08/31/16 05:20 Helmet Cells Not Reportable 08/31/16 05:20 Whittaker-Lansford Bodies Not Reportable 08/31/16 05:20 Bellamy Rings Not Reportable 08/31/16 05:20 Soumya Cells Not Reportable 08/31/16 05:20 Bite Cells Not Reportable 08/31/16 05:20 Crenated Cell Not Reportable 08/31/16 05:20 Elliptocytes Not Reportable 08/31/16 05:20 Acanthocytes (Spur) Not Reportable 08/31/16 05:20 Rouleaux Not Reportable 08/31/16 05:20 Hemoglobin C Crystals Not Reportable 08/31/16 05:20 Schistocytes Not Reportable 08/31/16 05:20 Malaria parasites Not Reportable 08/31/16 05:20 Percent Retic 6.59 % (0.78-2.58) H 08/27/16 11:15 Sickle Cell Screen Negative (Negative) 08/22/16 18:48 Daljit Bodies Not Reportable 08/31/16 05:20 Haptoglobin <15 mg/dL (43-212) L 08/27/16 11:15 Hem Pathologist Commnt No 08/31/16 05:20 PT 15.5 Sec. (12.2-14.9) H 09/03/16 05:51 INR 1.24 (0.87-1.13) H 09/03/16 05:51 APTT 42.3 Sec. (24.2-36.6) H 08/25/16 05:45 POC ABG pH 7.479 (7.35-7.45) H 08/24/16 14:12 POC ABG pCO2 29.6 (35-45) L 08/24/16 14:12 POC ABG pO2 62 (80-105) L 08/24/16 14:12 POC ABG HCO3 21.9 08/24/16 14:12 POC ABG Total CO2 23 08/24/16 14:12 POC ABG O2 Sat 93 08/24/16 14:12 POC ABG Base Excess -2 08/24/16 14:12 FiO2 3 % 08/24/16 14:12 Sodium 134 mmol/L (137-145) L 09/05/16 11:17 Potassium 3.6 mmol/L (3.6-5.0) 09/05/16 11:17 Chloride 104.4 mmol/L (98-107) 09/05/16 11:17 Carbon Dioxide 18 mmol/L (22-30) L 09/05/16 11:17 Anion Gap 15 mmol/L 09/05/16 11:17 BUN 26 mg/dL (7-17) H 09/05/16 11:17 Creatinine 1.6 mg/dL (0.7-1.2) H 09/05/16 11:17 Estimated GFR 36 ml/min 09/05/16 11:17 BUN/Creatinine Ratio 16.25 % 09/05/16 11:17 Glucose 112 mg/dL (65-100) H 09/05/16 11:17 POC Glucose 92 (70-105) 09/04/16 08:19 Lactic Acid 2.0 mmol/L (0.7-2.0) 08/29/16 04:30 Calcium 7.1 mg/dL (8.4-10.2) L 09/05/16 11:17 Magnesium 4.5 mg/dL (1.7-2.3) H 08/26/16 04:50 Total Bilirubin 12.2 mg/dL (0.1-1.2) H 09/05/16 11:17 Direct Bilirubin 15.7 mg/dL (0-0.2) H 09/03/16 05:19 Indirect Bilirubin 4.2 mg/dL 09/03/16 05:19 AST 23 units/L (5-40) 09/05/16 11:17 ALT 16 units/L (7-56) 09/05/16 11:17 Alkaline Phosphatase 149 units/L (35-129) H 09/05/16 11:17 Ammonia 44.0 umol/L (25-60) 08/30/16 05:40 Lactate Dehydrogenase 844 units/L (91-180) H 08/27/16 08:40 Total Creatine Kinase 1295 units/L (30-135) H 08/24/16 05:00 NT-Pro-B Natriuret Pep 241.0 pg/mL (0-450) 08/27/16 16:30 Total Protein 4.6 g/dL (6.3-8.2) L 09/05/16 11:17 Albumin 1.5 g/dL (3.9-5) L 09/05/16 11:17 Albumin/Globulin Ratio 0.5 % 09/05/16 11:17 LDL Cholesterol Direct 38 mg/dL (50-130) L 08/23/16 07:50 Vitamin B12 > 2000 pg/mL (211-911) H 08/27/16 11:15 Folate 10.54 ng/mL (7.3-26.0) 08/27/16 11:15 Urine Color [place] (Yellow) 08/27/16 15:20 Urine Turbidity Clear (Clear) 08/27/16 15:20 Urine pH 6.0 (5.0-7.0) 08/27/16 15:20 Ur Specific [place] 1.018 (1.003-1.030) 08/27/16 15:20 Urine Protein 30 mg/dl mg/dL (Negative) 08/27/16 15:20 Urine Glucose (UA) Neg mg/dL (Negative) 08/27/16 15:20 Urine Ketones Neg mg/dL (Negative) 08/27/16 15:20 Urine Blood Mod (Negative) 08/27/16 15:20 Urine Nitrite Neg (Negative) 08/27/16 15:20 Urine Bilirubin Mod (Negative) 08/27/16 15:20 Urine Ictotest Positive (Negative) 08/27/16 15:20 Urine Urobilinogen 4.0 mg/dL (<2.0) 08/27/16 15:20 Ur Leukocyte Esterase Neg (Negative) 08/27/16 15:20 Urine WBC (Auto) 10.0 /HPF (0.0-6.0) H 08/27/16 15:20 Urine RBC (Auto) 7.0 /HPF (0.0-6.0) 08/27/16 15:20 U Epithel Cells (Auto) < 1.0 /HPF (0-13.0) 08/27/16 15:20 Granular Casts 4 /LPF 08/27/16 15:20 Urine Mucus Few /HPF 08/27/16 15:20 Urine Opiates Screen Presumptive negative 08/22/16 18:30 Urine Methadone Screen Presumptive negative 08/22/16 18:30 Ur Barbiturates Screen Presumptive negative 08/22/16 18:30 Ur Phencyclidine Scrn Presumptive negative 08/22/16 18:30 Ur Amphetamines Screen Presumptive negative 08/22/16 18:30 U Benzodiazepines Scrn Presumptive negative 08/22/16 18:30 Urine Cocaine Screen Presumptive negative 08/22/16 18:30 U Marijuana (THC) Screen Presumptive negative 08/22/16 18:30 Drugs of Abuse Note Disclamer 08/22/16 18:30 RPR Nonreactive (Nonreactive) 08/22/16 18:34 CMV IgG Ab 2.92 (<=0.90) H 08/22/16 18:34 CMV IgM Ab <0.2 (()) 08/22/16 18:34 CMV DNA PCR log endoscopy tech/mL See scanned report 08/23/16 13:03 Hepatitis A IgM Ab -1 (NonReactive) 08/27/16 11:15 Hep Bs Antigen Non-reactive (Negative) 08/22/16 18:34 Hepatitis C Antibody Non-reactive (NonReactive) 08/22/16 18:34 Herpes Simplex Source Swab (()) 08/25/16 11:45 HSV I DNA PCR Not detected (Not Detected) 08/25/16 11:45 HSV II DNA PCR Not detected (Not Detected) 08/25/16 11:45 HIV 1&2 Antibody Rapid Non react (Non React) 08/23/16 09:25 HIV P24 Antigen Non react (Non React) 08/23/16 09:25 Rubella IgG Antibody Immune (Immune) 08/22/16 18:34 Rubella IgM Antibody <0.90 (<0.90) 08/22/16 18:34 Schistocytes Smear Rare 08/26/16 04:50 Toxoplasma IgG Ab <=0.90 (<=0.90) 08/22/16 18:34 Toxoplasma IgM Ab Negative (Negative) 08/22/16 18:34 Miscellaneous Test Flexitest 1 08/28/16 17:41 Blood Type O NEGATIVE 08/31/16 12:15 Antibody Screen Positive 08/31/16 12:15 Antibody Identification Anti-D (Passively Aquired) 08/31/16 12:15 Direct Antiglob Test Negative 08/27/16 08:20 JYOTI, Poly Interpret Negative 08/27/16 08:20 KB % Cells Negative 08/22/16 Unknown Crossmatch See Detail 08/31/16 12:15 Pre-Trans JYOTI Negative 08/27/16 15:20 Pre-Trans JYOIT Poly Negative 08/27/16 15:20 Post-Trans Blood Type O negative 08/27/16 15:20 Post-Trans JYOTI Negative 08/27/16 15:20 Post-Trans JYOTI Poly Negative 08/27/16 15:20
[2016-09-06] MEDS: FEOSOL PO SCH ×2 (11:57→22:36)
[2016-09-06] MEDS: NORMODYNE PO SCH ×2 (11:57→22:36)
[2016-09-06] MEDS: NACL 0.9% 1000 ML 1,000 ML IV SCH (13:40)
--- NOTE | 2016-09-06 13:54 | Gastroenterology Progress Note ---
Assessment and Plan GI: resolving HEELP w/ improved LFT's - diet as tolerated - continue to follow labs and as outpt - no need further GI intervention at this time - will sign off, call if needed Subjective Date of service: 09/06/16 Principal diagnosis: Acute Fatty liver disease resolvving Interval history: - no GI issues overnight Objective - Constitutional Vitals: Temp Pulse Resp BP Pulse Ox 97.8 F 65 20 115/65 100 09/06/16 12:03 09/06/16 12:03 09/06/16 12:03 09/06/16 12:03 09/06/16 12:03 General appearance: no acute distress - EENT Eyes: scleral icterus - Neck Neck: supple - Respiratory Respiratory: bilateral: CTA - Cardiovascular Rhythm: regular Heart Sounds: Present: S1 & S2 - Labs CBC & Chem 7: 09/05/16 11:17 09/05/16 11:17
[2016-09-07] MEDS: KEFLEX PO SCH ×6 (00:36→23:06)
[2016-09-07 08:01] LABS: Hematocrit 27.2 % (30.3-42.9); Hemoglobin 9.2 gm/dl (10.1-14.3); Mean Corpuscular HGB Conc 34 % (30-34); Mean Corpuscular Hemoglobin 32 pg (28-32); Mean Corpuscular Volume 95 fl (79-97); Platelet Count 166 K/mm3 (140-440); Red Blood Count 2.86 M/mm3 (3.65-5.03); White Blood Count 7.2 K/mm3 (4.5-11.0)
[2016-09-07 08:11] LABS: Red Cell Distribution Width 23.9 % (13.2-15.2)
[2016-09-07 08:16] LABS: BUN/Creatinine Ratio 12.94; Calcium 7.2 mg/dL (8.4-10.2); Chloride 105.6 mmol/L (98-107); Potassium 3.1 mmol/L (3.6-5.0)
[2016-09-07] MEDS ORDERED: K-DUR PO ONE (09:00)
--- NOTE | 2016-09-07 09:20 | Hem/Onc Progress Note ---
Assessment and Plan CBC has shown improvement. Liver function tests are pending but clinically patient is a lot better. Hopefully she will be able to go home soon. Can follow her as outpatient. Subjective Date of service: 09/07/16 Interval history: Patient looks better. Overall improvement Objective - Exam Narrative Exam: Icteric but better.ambulating - Constitutional Vitals: Last Vital Signs Temp 98.5 F 09/07/16 05:58 Pulse 72 09/07/16 05:58 Resp 20 09/07/16 05:58 BP 99/55 09/07/16 05:58 Pulse Ox 98 09/07/16 05:58 Pain Intensity (0-10): denies any pain Performance status: 2- selfcare, ambulatory - Respiratory Respiratory effort: Positive: normal Respiratory: bilateral: CTA - Cardiovascular Rhythm: regular Extremities: No edema - Gastrointestinal General gastrointestinal: Present: soft - Labs Lab Results: Laboratory Results - last 24 hr 09/07/16 09/07/16 07:19 07:19 WBC 7.2 RBC 2.86 L Hgb 9.2 L Hct 27.2 L MCV 95 MCH 32 MCHC 34 RDW 23.9 H Plt Count 166 Sodium 137 Potassium 3.1 L Chloride 105.6 Carbon Dioxide 19 L Anion Gap 16 BUN 22 H Creatinine 1.7 H Estimated GFR 33 BUN/Creatinine Ratio 12.94 Glucose 78 Calcium 7.2 L
[2016-09-07] MEDS: FEOSOL PO SCH ×2 (09:50→23:05)
--- NOTE | 2016-09-07 10:00 | Progress Note ---
Assessment and Plan pod 15 s/p c/s. Resolving acute fatty liver disease. Hypokalemia. Wound healing secondarily. Reconsult wound care nurse. Spoke with case management regarding f/u in wound clinic vs home visits. considering D/C home once these issues are addressed. Subjective - Subjective Date of service: 09/07/16 Principal diagnosis: Acute Fatty liver disease resolvving Interval history: Pt pod 15 s/p primary c/s. Improving liver and renal functionsl. pt ambulating today, Voiding without difficulty. Will D/C central line today. pt seen by wound care nurse recommending once daily dressing change will reconsult today. Consider d/c tomorrow or later this pm if approved by GI and hospitalist. Will arrange for wound care as outpatient. Patient is eager to be discharged because wants to see infant that is still hospitalized at [facility] Patient reports: appetite normal, voiding normally, pain well controlled [place]: transported Objective - Vital Signs Latest vital signs: Vital Signs Temp Pulse Pulse Resp BP BP Pulse Ox 09/07/16 05:58 98.5 F 72 20 99/55 98 09/07/16 00:00 98.8 F 80 21 113/62 98 09/06/16 22:36 61 115/68 09/06/16 20:00 98 F 62 20 115/68 09/06/16 12:03 97.8 F 65 20 115/65 100 Intake and Output 09/06/16 09/07/16 09/07/16 22:59 06:59 14:59 Other: Voiding Method Toilet # Voids Indwelling Catheter 4 Weight 83.5 kg - Exam Breasts: Present: deferred Cardiovascular: Present: Regular rate, Normal S1, Normal S2 Lungs: Present: Clear to auscultation Abdomen: Present: normal appearance, soft Vulva: both: normal Uterus: Present: normal, firm Extremities: Present: normal Incision: Present: normal, intact, dressed (Dainage from incision increased over night. wound cleaned to day and packed with gauze. area above incisin still is firm- no evidence of infection. wound reconsult today.) - Labs Labs: Abnormal lab results 09/07/16 09/07/16 Range/Units 07:19 07:19 RBC 2.86 L (3.65-5.03) M/mm3 Hgb 9.2 L (10.1-14.3) gm/dl Hct 27.2 L (30.3-42.9) % RDW 23.9 H (13.2-15.2) % Potassium 3.1 L (3.6-5.0) mmol/L Carbon Dioxide 19 L (22-30) mmol/L BUN 22 H (7-17) mg/dL Creatinine 1.7 H (0.7-1.2) mg/dL Calcium 7.2 L (8.4-10.2) mg/dL
--- NOTE | 2016-09-07 16:51 | Progress Note ---
Assessment and Plan Assessment and plan: 1. HELLP syndrome - baby delivered through ; supportive care; s/p transfusion PRBC, FFP; LFTs trending down and normalized; platelets continue to trend up, within normal limits now 2. SIRS - sepsis suspected, but no evidence of infection; antibiotics discontinued 3. Anemia - combination of anemia/blood loss/hemolytic anemia due to HELLP; s/p total of 6 units PRBCs; hemoglobin stable;continue to monitor H&H 4. Thrombocytopenia - secondary to HELLP; resolved 5. Coagulopathy - sec to HELLP; received 2 units FFP; now resolved 6. Acute kidney injury -almost resolved with IV hydration, now creatinine going up; restarted ivf (but did not received it), encourage po intake; monitor 7. Hyperkalemia - medically treated, resolved 8. Acute encephalopathy - likely secondary to HELLP; resolved 9. Malnutrition - dietitian consulted for supplementation 10. Debility - PT daily 11. S/p 08/13/16 12. Discharge planning - IV fluids overnight, if renal function improved can be discharged with a close PCP or AGRICULTURE SCIENTIST follow-up and BMP recheck History Interval history: continues to improve clinically, no specific complaints Hospitalist Physical - Constitutional Vitals: Temp Pulse Resp BP Pulse Ox 98.1 F 86 18 121/74 99 09/07/16 10:29 09/07/16 13:40 09/07/16 10:29 09/07/16 13:40 09/07/16 10:29 General appearance: Present: no acute distress, well-nourished - EENT Eyes: Present: PERRL, EOM intact, scleral icterus. Absent: conjunctival injection - Neck Neck: Present: supple, normal ROM. Absent: masses or JVD - Respiratory Respiratory effort: normal Respiratory: bilateral: CTA, negative: rales, rhonchi, wheezing - Cardiovascular Rhythm: regular Heart Sounds: Present: S1 & S2. Absent: systolic murmur - Extremities Extremities: no ischemia Extremity abnormal: edema - Abdominal General gastrointestinal: soft, non-tender, distended (peripartum), normal bowel sounds - Psychiatric Psychiatric: cooperative - Neurologic Neurologic: CNII-XII intact, no focal deficits Results - Labs CBC & Chem 7: 09/07/16 07:19 09/07/16 07:19 Labs: Laboratory Last Values WBC 7.2 K/mm3 (4.5-11.0) 09/07/16 07:19 RBC 2.86 M/mm3 (3.65-5.03) L 09/07/16 07:19 Hgb 9.2 gm/dl (10.1-14.3) L 09/07/16 07:19 Hct 27.2 % (30.3-42.9) L 09/07/16 07:19 MCV 95 fl (79-97) 09/07/16 07:19 MCH 32 pg (28-32) 09/07/16 07:19 MCHC 34 % (30-34) 09/07/16 07:19 RDW 23.9 % (13.2-15.2) H 09/07/16 07:19 Plt Count 166 K/mm3 (140-440) 09/07/16 07:19 Lymph % (Auto) 12.2 % (13.4-35.0) L 09/05/16 11:17 Piatt % (Auto) 6.5 % (0.0-7.3) 09/05/16 11:17 Eos % (Auto) 2.1 % (0.0-4.3) 09/05/16 11:17 Baso % (Auto) 0.6 % (0.0-1.8) 09/05/16 11:17 Lymph # 1.1 K/mm3 (1.2-5.4) L 09/05/16 11:17 Piatt # 0.6 K/mm3 (0.0-0.8) 09/05/16 11:17 Eos # 0.2 K/mm3 (0.0-0.4) 09/05/16 11:17 Baso # 0.1 K/mm3 (0.0-0.1) 09/05/16 11:17 Add Manual Diff Complete 08/31/16 05:20 Total Counted 100 08/31/16 05:20 Seg Neutrophils % 78.6 % (40.0-70.0) H 09/05/16 11:17 Seg Neuts % (Manual) 83.0 % (40.0-70.0) H 08/31/16 05:20 Band Neutrophils % 0 % 08/31/16 05:20 Lymphocytes % (Manual) 5.0 % (13.4-35.0) L 08/31/16 05:20 Reactive Lymphs % (Man) 0 % 08/31/16 05:20 Monocytes % (Manual) 7.0 % (0.0-7.3) 08/31/16 05:20 Eosinophils % (Manual) 5.0 % (0.0-4.3) H 08/31/16 05:20 Basophils % (Manual) 0 % (0.0-1.8) 08/31/16 05:20 Metamyelocytes % 0 % 08/31/16 05:20 Myelocytes % 0 % 08/31/16 05:20 Promyelocytes % 0 % 08/31/16 05:20 Blast Cells % 0 % 08/31/16 05:20 Nucleated RBC % 7.0 % (0.0-0.9) H 08/31/16 05:20 Seg Neutrophils # 6.8 K/mm3 (1.8-7.7) 09/05/16 11:17 Seg Neutrophils # Man 12.0 K/mm3 (1.8-7.7) H 08/31/16 05:20 Band Neutrophils # 0.0 K/mm3 08/31/16 05:20 Lymphocytes # (Manual) 0.7 K/mm3 (1.2-5.4) L 08/31/16 05:20 Abs React Lymphs (Man) 0.0 K/mm3 08/31/16 05:20 Monocytes # (Manual) 1.0 K/mm3 (0.0-0.8) H 08/31/16 05:20 Eosinophils # (Manual) 0.7 K/mm3 (0.0-0.4) H 08/31/16 05:20 Basophils # (Manual) 0.0 K/mm3 (0.0-0.1) 08/31/16 05:20 Metamyelocytes # 0.0 K/mm3 08/31/16 05:20 Myelocytes # 0.0 K/mm3 08/31/16 05:20 Promyelocytes # 0.0 K/mm3 08/31/16 05:20 Blast Cells # 0.0 K/mm3 08/31/16 05:20 WBC Morphology Not Reportable 08/31/16 05:20 Hypersegmented Neuts Not Reportable 08/31/16 05:20 Hyposegmented Neuts Not Reportable 08/31/16 05:20 Hypogranular Neuts Not Reportable 08/31/16 05:20 Smudge Cells Not Reportable 08/31/16 05:20 Toxic Granulation Not Reportable 08/31/16 05:20 Toxic Vacuolation Not Reportable 08/31/16 05:20 Dohle Bodies Not Reportable 08/31/16 05:20 Pelger-Huet Anomaly Not Reportable 08/31/16 05:20 Alaina Rods Not Reportable 08/31/16 05:20 Platelet Estimate Appears decreased 08/31/16 05:20 Clumped Platelets Not Reportable 08/31/16 05:20 Plt Clumps, EDTA Not Reportable 08/31/16 05:20 Large Platelets Rare 08/31/16 05:20 Giant Platelets Not Reportable 08/31/16 05:20 Platelet Satelliting Not Reportable 08/31/16 05:20 Plt Morphology Comment Not Reportable 08/31/16 05:20 RBC Morphology Not Reportable 08/31/16 05:20 Dimorphic RBCs Not Reportable 08/31/16 05:20 Polychromasia 1+ 08/31/16 05:20 Hypochromasia Not Reportable 08/31/16 05:20 Poikilocytosis Not Reportable 08/31/16 05:20 Anisocytosis 1+ 08/31/16 05:20 Microcytosis Not Reportable 08/31/16 05:20 Macrocytosis Not Reportable 08/31/16 05:20 Spherocytes Not Reportable 08/31/16 05:20 Pappenheimer Bodies Not Reportable 08/31/16 05:20 Sickle Cells Not Reportable 08/31/16 05:20 Target Cells Not Reportable 08/31/16 05:20 Tear Drop Cells Rare 08/31/16 05:20 Ovalocytes Not Reportable 08/31/16 05:20 Helmet Cells Not Reportable 08/31/16 05:20 [place] Bodies Not Reportable 08/31/16 05:20 [place] Rings Not Reportable 08/31/16 05:20 [place] Cells Not Reportable 08/31/16 05:20 Bite Cells Not Reportable 08/31/16 05:20 Crenated Cell Not Reportable 08/31/16 05:20 Elliptocytes Not Reportable 08/31/16 05:20 Acanthocytes (Spur) Not Reportable 08/31/16 05:20 Rouleaux Not Reportable 08/31/16 05:20 Hemoglobin C Crystals Not Reportable 08/31/16 05:20 Schistocytes Not Reportable 08/31/16 05:20 Malaria parasites Not Reportable 08/31/16 05:20 Percent Retic 6.59 % (0.78-2.58) H 08/27/16 11:15 Sickle Cell Screen Negative (Negative) 08/22/16 18:48 Daljit Bodies Not Reportable 08/31/16 05:20 Haptoglobin <15 mg/dL (43-212) L 08/27/16 11:15 Hem Pathologist Commnt No 08/31/16 05:20 PT 15.5 Sec. (12.2-14.9) H 09/03/16 05:51 INR 1.24 (0.87-1.13) H 09/03/16 05:51 APTT 42.3 Sec. (24.2-36.6) H 08/25/16 05:45 POC ABG pH 7.479 (7.35-7.45) H 08/24/16 14:12 POC ABG pCO2 29.6 (35-45) L 08/24/16 14:12 POC ABG pO2 62 (80-105) L 08/24/16 14:12 POC ABG HCO3 21.9 08/24/16 14:12 POC ABG Total CO2 23 08/24/16 14:12 POC ABG O2 Sat 93 08/24/16 14:12 POC ABG Base Excess -2 08/24/16 14:12 FiO2 3 % 08/24/16 14:12 Sodium 137 mmol/L (137-145) 09/07/16 07:19 Potassium 3.1 mmol/L (3.6-5.0) L 09/07/16 07:19 Chloride 105.6 mmol/L (98-107) 09/07/16 07:19 Carbon Dioxide 19 mmol/L (22-30) L 09/07/16 07:19 Anion Gap 16 mmol/L 09/07/16 07:19 BUN 22 mg/dL (7-17) H 09/07/16 07:19 Creatinine 1.7 mg/dL (0.7-1.2) H 09/07/16 07:19 Estimated GFR 33 ml/min 09/07/16 07:19 BUN/Creatinine Ratio 12.94 % 09/07/16 07:19 Glucose 78 mg/dL (65-100) 09/07/16 07:19 POC Glucose 92 (70-105) 09/04/16 08:19 Lactic Acid 2.0 mmol/L (0.7-2.0) 08/29/16 04:30 Calcium 7.2 mg/dL (8.4-10.2) L 09/07/16 07:19 Magnesium 4.5 mg/dL (1.7-2.3) H 08/26/16 04:50 Total Bilirubin 12.2 mg/dL (0.1-1.2) H 09/05/16 11:17 Direct Bilirubin 15.7 mg/dL (0-0.2) H 09/03/16 05:19 Indirect Bilirubin 4.2 mg/dL 09/03/16 05:19 AST 23 units/L (5-40) 09/05/16 11:17 ALT 16 units/L (7-56) 09/05/16 11:17 Alkaline Phosphatase 149 units/L (35-129) H 09/05/16 11:17 Ammonia 44.0 umol/L (25-60) 08/30/16 05:40 Lactate Dehydrogenase 844 units/L (91-180) H 08/27/16 08:40 Total Creatine Kinase 1295 units/L (30-135) H 08/24/16 05:00 NT-Pro-B Natriuret Pep 241.0 pg/mL (0-450) 08/27/16 16:30 Total Protein 4.6 g/dL (6.3-8.2) L 09/05/16 11:17 Albumin 1.5 g/dL (3.9-5) L 09/05/16 11:17 Albumin/Globulin Ratio 0.5 % 09/05/16 11:17 LDL Cholesterol Direct 38 mg/dL (50-130) L 08/23/16 07:50 Vitamin B12 > 2000 pg/mL (211-911) H 08/27/16 11:15 Folate 10.54 ng/mL (7.3-26.0) 08/27/16 11:15 Urine Color [place] (Yellow) 08/27/16 15:20 Urine Turbidity Clear (Clear) 08/27/16 15:20 Urine pH 6.0 (5.0-7.0) 08/27/16 15:20 Ur Specific [place] 1.018 (1.003-1.030) 08/27/16 15:20 Urine Protein 30 mg/dl mg/dL (Negative) 08/27/16 15:20 Urine Glucose (UA) Neg mg/dL (Negative) 08/27/16 15:20 Urine Ketones Neg mg/dL (Negative) 08/27/16 15:20 Urine Blood Mod (Negative) 08/27/16 15:20 Urine Nitrite Neg (Negative) 08/27/16 15:20 Urine Bilirubin Mod (Negative) 08/27/16 15:20 Urine Ictotest Positive (Negative) 08/27/16 15:20 Urine Urobilinogen 4.0 mg/dL (<2.0) 08/27/16 15:20 Ur Leukocyte Esterase Neg (Negative) 08/27/16 15:20 Urine WBC (Auto) 10.0 /HPF (0.0-6.0) H 08/27/16 15:20 Urine RBC (Auto) 7.0 /HPF (0.0-6.0) 08/27/16 15:20 U Epithel Cells (Auto) < 1.0 /HPF (0-13.0) 08/27/16 15:20 Granular Casts 4 /LPF 08/27/16 15:20 Urine Mucus Few /HPF 08/27/16 15:20 Urine Opiates Screen Presumptive negative 08/22/16 18:30 Urine Methadone Screen Presumptive negative 08/22/16 18:30 Ur Barbiturates Screen Presumptive negative 08/22/16 18:30 Ur Phencyclidine Scrn Presumptive negative 08/22/16 18:30 Ur Amphetamines Screen Presumptive negative 08/22/16 18:30 U Benzodiazepines Scrn Presumptive negative 08/22/16 18:30 Urine Cocaine Screen Presumptive negative 08/22/16 18:30 U Marijuana (THC) Screen Presumptive negative 08/22/16 18:30 Drugs of Abuse Note Disclamer 08/22/16 18:30 RPR Nonreactive (Nonreactive) 08/22/16 18:34 CMV IgG Ab 2.92 (<=0.90) H 08/22/16 18:34 CMV IgM Ab <0.2 (()) 08/22/16 18:34 CMV DNA PCR log copy center operator/mL See scanned report 08/23/16 13:03 Hepatitis A IgM Ab -1 (NonReactive) 08/27/16 11:15 Hep Bs Antigen Non-reactive (Negative) 08/22/16 18:34 Hepatitis C Antibody Non-reactive (NonReactive) 08/22/16 18:34 Herpes Simplex Source Swab (()) 08/25/16 11:45 HSV I DNA PCR Not detected (Not Detected) 08/25/16 11:45 HSV II DNA PCR Not detected (Not Detected) 08/25/16 11:45 HIV 1&2 Antibody Rapid Non react (Non React) 08/23/16 09:25 HIV P24 Antigen Non react (Non React) 08/23/16 09:25 Rubella IgG Antibody Immune (Immune) 08/22/16 18:34 Rubella IgM Antibody <0.90 (<0.90) 08/22/16 18:34 Schistocytes Smear Rare 08/26/16 04:50 Toxoplasma IgG Ab <=0.90 (<=0.90) 08/22/16 18:34 Toxoplasma IgM Ab Negative (Negative) 08/22/16 18:34 Miscellaneous Test Flexitest 1 08/28/16 17:41 Blood Type O NEGATIVE 08/31/16 12:15 Antibody Screen Positive 08/31/16 12:15 Antibody Identification Anti-D (Passively Aquired) 08/31/16 12:15 Direct Antiglob Test Negative 08/27/16 08:20 JYOTI, Poly Interpret Negative 08/27/16 08:20 KB % Cells Negative 08/22/16 Unknown Crossmatch See Detail 08/31/16 12:15 Pre-Trans JYOTI Negative 08/27/16 15:20 Pre-Trans JYOTI Poly Negative 08/27/16 15:20 Post-Trans Blood Type O negative 08/27/16 15:20 Post-Trans JYOTI Negative 08/27/16 15:20 Post-Trans JYOTI Poly Negative 08/27/16 15:20
[2016-09-07] MEDS: NACL 0.9% 1000 ML 1,000 ML IV SCH (18:17)
[2016-09-07 21:16] LABS: BUN/Creatinine Ratio 13.12; Chloride 107.4 mmol/L (98-107); Potassium 3.4 mmol/L (3.6-5.0)
[2016-09-08] MEDS: ZOFRAN IV PRN (03:23)
[2016-09-08] MEDS: KEFLEX PO SCH ×3 (07:03→18:25)
--- NOTE | 2016-09-08 09:53 | Progress Note ---
Assessment and Plan pod 16- awaiting [place] by hospitalist and wound care prior to discharge. Subjective - Subjective Date of service: 09/15/16 Principal diagnosis: Acute Fatty liver disease resolving Interval history: Pt pod 16 s/p primary c/s. Improving liver and renal functions. pt ambulating today, Voiding without difficulty. pt seen by wound care nurse recommending once daily dressing change will reconsult today. Consider d/c tomorrow or later this pm if approved by GI and hospitalist. Will arrange for wound care as outpatient. Little change in BUN and creatinine after fluid last pm. Will check with hospitalist re- discharge. Still awaiting wound care nurse revisit and plans for wound car upon discharge Patient reports: appetite normal, voiding normally, pain well controlled Lennon: transported Objective - Vital Signs Latest vital signs: Vital Signs Temp Pulse Pulse Pulse Resp BP BP 09/08/16 04:45 98.8 F 75 20 113/57 09/08/16 01:16 98.6 F 87 20 126/68 09/07/16 19:42 98.4 F 87 20 129/67 09/07/16 18:12 98.2 F 78 18 122/75 09/07/16 13:40 86 121/74 09/07/16 12:52 88 09/07/16 10:29 98.1 F 77 18 110/69 Pulse Ox 09/08/16 04:45 98 09/08/16 01:16 100 09/07/16 19:42 100 09/07/16 18:12 99 09/07/16 13:40 09/07/16 12:52 09/07/16 10:29 99 Intake and Output 09/07/16 09/08/16 09/08/16 22:59 06:59 14:59 Other: Voiding Method Toilet # Voids Indwelling Catheter 1 Void 4 Weight 83.8 kg Patient Weight 09/09/16 06:59 Weight 83.8 kg - Exam Breasts: Present: deferred Cardiovascular: Present: Regular rate, Normal S1, Normal S2 Lungs: Present: Clear to auscultation Abdomen: Present: normal appearance, soft Uterus: Present: normal Extremities: Present: normal Deep Tendon Reflex Grade: Normal +2 Incision: Present: normal, intact, dressed (right side of incision packed. still serosanginious drainage. fascis reprobed yesterday. intanct. skin above incision edematous with fluid. no sins of infection. awaiting wound care reconsult.) - Labs Labs: Abnormal lab results 09/07/16 Range/Units 20:30 Potassium 3.4 L (3.6-5.0) mmol/L Chloride 107.4 H (98-107) mmol/L Carbon Dioxide 19 L (22-30) mmol/L BUN 21 H (7-17) mg/dL Creatinine 1.6 H (0.7-1.2) mg/dL Glucose 119 H (65-100) mg/dL Calcium 7.0 L (8.4-10.2) mg/dL
[2016-09-08 10:33] LABS: Basophils % (Auto) 1.3 % (0.0-1.8); Hematocrit 26.9 % (30.3-42.9); Hemoglobin 8.9 gm/dl (10.1-14.3); Mean Corpuscular HGB Conc 33 % (30-34); Mean Corpuscular Hemoglobin 32 pg (28-32); Mean Corpuscular Volume 97 fl (79-97); Platelet Count 210 K/mm3 (140-440); Red Blood Count 2.77 M/mm3 (3.65-5.03); White Blood Count 6.1 K/mm3 (4.5-11.0)
[2016-09-08 10:34] LABS: Red Cell Distribution Width 24.3 % (13.2-15.2)
[2016-09-08 11:12] LABS: Albumin 1.7 g/dL (3.9-5); Albumin/Globulin Ratio 0.5 %; BUN/Creatinine Ratio 12.66; Bilirubin,Total 4.8 mg/dL (0.1-1.2); Calcium 7.3 mg/dL (8.4-10.2); Chloride 110.1 mmol/L (98-107); Potassium 3.3 mmol/L (3.6-5.0); Total Protein 5.1 g/dL (6.3-8.2)
[2016-09-08] MEDS: FEOSOL PO SCH ×2 (11:33→21:14)
--- NOTE | 2016-09-08 14:15 | Progress Note ---
Assessment and Plan Assessment and plan: 1. HELLP syndrome - baby delivered through ; supportive care; s/p transfusion PRBC, FFP; LFTs trending down and normalized; platelets continue to trend up, within normal limits now 2. SIRS - sepsis suspected, but no evidence of infection; antibiotics discontinued 3. Anemia - combination of anemia/blood loss/hemolytic anemia due to HELLP; s/p total of 6 units PRBCs; hemoglobin stable;continue to monitor H&H 4. Thrombocytopenia - secondary to HELLP; resolved 5. Coagulopathy - sec to HELLP; received 2 units FFP; now resolved 6. Acute kidney injury -almost resolved with IV hydration, now creatinine going up; restarted ivf. Creatinine improved to 1.5. Etiology likely secondary to vasomotor nephropathy. Encourage po intake; monitor 7. Hyperkalemia - medically treated, resolved 8. Acute encephalopathy - likely secondary to HELLP; resolved 9. Malnutrition - dietitian consulted for supplementation 10. Debility - PT daily 11. S/p 08/13/16 12. Discharge planning - IV fluids overnight, if renal function improved can be discharged with a close PCP or LOGISTICS MANAGER follow-up and BMP recheck. Creatinine improved to 1.5. History Interval history: No new issues overnight. Hospitalist Physical - Constitutional Vitals: Temp Pulse Resp BP Pulse Ox 97.6 F 78 18 124/77 100 09/08/16 13:47 09/08/16 13:47 09/08/16 13:47 09/08/16 13:47 09/08/16 13:47 General appearance: Present: no acute distress, well-nourished - EENT Eyes: Present: PERRL, EOM intact ENT: hearing intact, clear oral mucosa, dentition normal - Neck Neck: Present: supple, normal ROM - Respiratory Respiratory effort: normal Respiratory: bilateral: CTA - Cardiovascular Rhythm: regular Heart Sounds: Present: S1 & S2. Absent: gallop, rub - Extremities Extremities: no ischemia, No edema, Full ROM - Abdominal General gastrointestinal: soft, non-tender, non-distended, normal bowel sounds - Integumentary Integumentary: Present: clear, warm, dry - Neurologic Neurologic: CNII-XII intact, moves all extremities Results - Labs CBC & Chem 7: 09/08/16 10:15 09/08/16 10:15 Labs: Laboratory Last Values WBC 6.1 K/mm3 (4.5-11.0) 09/08/16 10:15 RBC 2.77 M/mm3 (3.65-5.03) L 09/08/16 10:15 Hgb 8.9 gm/dl (10.1-14.3) L 09/08/16 10:15 Hct 26.9 % (30.3-42.9) L 09/08/16 10:15 MCV 97 fl (79-97) 09/08/16 10:15 MCH 32 pg (28-32) 09/08/16 10:15 MCHC 33 % (30-34) 09/08/16 10:15 RDW 24.3 % (13.2-15.2) H 09/08/16 10:15 Plt Count 210 K/mm3 (140-440) 09/08/16 10:15 Lymph % (Auto) 19.1 % (13.4-35.0) 09/08/16 10:15 [place] % (Auto) 5.6 % (0.0-7.3) 09/08/16 10:15 Eos % (Auto) 2.0 % (0.0-4.3) 09/08/16 10:15 Baso % (Auto) 1.3 % (0.0-1.8) 09/08/16 10:15 Lymph # 1.2 K/mm3 (1.2-5.4) 09/08/16 10:15 Sharp # 0.3 K/mm3 (0.0-0.8) 09/08/16 10:15 Eos # 0.1 K/mm3 (0.0-0.4) 09/08/16 10:15 Baso # 0.1 K/mm3 (0.0-0.1) 09/08/16 10:15 Add Manual Diff Complete 08/31/16 05:20 Total Counted 100 08/31/16 05:20 Seg Neutrophils % 72.0 % (40.0-70.0) H 09/08/16 10:15 Seg Neuts % (Manual) 83.0 % (40.0-70.0) H 08/31/16 05:20 Band Neutrophils % 0 % 08/31/16 05:20 Lymphocytes % (Manual) 5.0 % (13.4-35.0) L 08/31/16 05:20 Reactive Lymphs % (Man) 0 % 08/31/16 05:20 Monocytes % (Manual) 7.0 % (0.0-7.3) 08/31/16 05:20 Eosinophils % (Manual) 5.0 % (0.0-4.3) H 08/31/16 05:20 Basophils % (Manual) 0 % (0.0-1.8) 08/31/16 05:20 Metamyelocytes % 0 % 08/31/16 05:20 Myelocytes % 0 % 08/31/16 05:20 Promyelocytes % 0 % 08/31/16 05:20 Blast Cells % 0 % 08/31/16 05:20 Nucleated RBC % 7.0 % (0.0-0.9) H 08/31/16 05:20 Seg Neutrophils # 4.4 K/mm3 (1.8-7.7) 09/08/16 10:15 Seg Neutrophils # Man 12.0 K/mm3 (1.8-7.7) H 08/31/16 05:20 Band Neutrophils # 0.0 K/mm3 08/31/16 05:20 Lymphocytes # (Manual) 0.7 K/mm3 (1.2-5.4) L 08/31/16 05:20 Abs React Lymphs (Man) 0.0 K/mm3 08/31/16 05:20 Monocytes # (Manual) 1.0 K/mm3 (0.0-0.8) H 08/31/16 05:20 Eosinophils # (Manual) 0.7 K/mm3 (0.0-0.4) H 08/31/16 05:20 Basophils # (Manual) 0.0 K/mm3 (0.0-0.1) 08/31/16 05:20 Metamyelocytes # 0.0 K/mm3 08/31/16 05:20 Myelocytes # 0.0 K/mm3 08/31/16 05:20 Promyelocytes # 0.0 K/mm3 08/31/16 05:20 Blast Cells # 0.0 K/mm3 08/31/16 05:20 WBC Morphology Not Reportable 08/31/16 05:20 Hypersegmented Neuts Not Reportable 08/31/16 05:20 Hyposegmented Neuts Not Reportable 08/31/16 05:20 Hypogranular Neuts Not Reportable 08/31/16 05:20 Smudge Cells Not Reportable 08/31/16 05:20 Toxic Granulation Not Reportable 08/31/16 05:20 Toxic Vacuolation Not Reportable 08/31/16 05:20 Dohle Bodies Not Reportable 08/31/16 05:20 Pelger-Huet Anomaly Not Reportable 08/31/16 05:20 Alaina Rods Not Reportable 08/31/16 05:20 Platelet Estimate Appears decreased 08/31/16 05:20 Clumped Platelets Not Reportable 08/31/16 05:20 Plt Clumps, EDTA Not Reportable 08/31/16 05:20 Large Platelets Rare 08/31/16 05:20 Giant Platelets Not Reportable 08/31/16 05:20 Platelet Satelliting Not Reportable 08/31/16 05:20 Plt Morphology Comment Not Reportable 08/31/16 05:20 RBC Morphology Not Reportable 08/31/16 05:20 Dimorphic RBCs Not Reportable 08/31/16 05:20 Polychromasia 1+ 08/31/16 05:20 Hypochromasia Not Reportable 08/31/16 05:20 Poikilocytosis Not Reportable 08/31/16 05:20 Anisocytosis 1+ 08/31/16 05:20 Microcytosis Not Reportable 08/31/16 05:20 Macrocytosis Not Reportable 08/31/16 05:20 Spherocytes Not Reportable 08/31/16 05:20 Pappenheimer Bodies Not Reportable 08/31/16 05:20 Sickle Cells Not Reportable 08/31/16 05:20 Target Cells Not Reportable 08/31/16 05:20 Tear Drop Cells Rare 08/31/16 05:20 Ovalocytes Not Reportable 08/31/16 05:20 Helmet Cells Not Reportable 08/31/16 05:20 Whittaker-[place] Bodies Not Reportable 08/31/16 05:20 [place] Rings Not Reportable 08/31/16 05:20 Soumya Cells Not Reportable 08/31/16 05:20 Bite Cells Not Reportable 08/31/16 05:20 Crenated Cell Not Reportable 08/31/16 05:20 Elliptocytes Not Reportable 08/31/16 05:20 Acanthocytes (Spur) Not Reportable 08/31/16 05:20 Rouleaux Not Reportable 08/31/16 05:20 Hemoglobin C Crystals Not Reportable 08/31/16 05:20 Schistocytes Not Reportable 08/31/16 05:20 Malaria parasites Not Reportable 08/31/16 05:20 Percent Retic 6.59 % (0.78-2.58) H 08/27/16 11:15 Sickle Cell Screen Negative (Negative) 08/22/16 18:48 Daljit Bodies Not Reportable 08/31/16 05:20 Haptoglobin <15 mg/dL (43-212) L 08/27/16 11:15 Hem Pathologist Commnt No 08/31/16 05:20 PT 15.5 Sec. (12.2-14.9) H 09/03/16 05:51 INR 1.24 (0.87-1.13) H 09/03/16 05:51 APTT 42.3 Sec. (24.2-36.6) H 08/25/16 05:45 POC ABG pH 7.479 (7.35-7.45) H 08/24/16 14:12 POC ABG pCO2 29.6 (35-45) L 08/24/16 14:12 POC ABG pO2 62 (80-105) L 08/24/16 14:12 POC ABG HCO3 21.9 08/24/16 14:12 POC ABG Total CO2 23 08/24/16 14:12 POC ABG O2 Sat 93 08/24/16 14:12 POC ABG Base Excess -2 08/24/16 14:12 FiO2 3 % 08/24/16 14:12 Sodium 141 mmol/L (137-145) 09/08/16 10:15 Potassium 3.3 mmol/L (3.6-5.0) L 09/08/16 10:15 Chloride 110.1 mmol/L (98-107) H 09/08/16 10:15 Carbon Dioxide 18 mmol/L (22-30) L 09/08/16 10:15 Anion Gap 16 mmol/L 09/08/16 10:15 BUN 19 mg/dL (7-17) H 09/08/16 10:15 Creatinine 1.5 mg/dL (0.7-1.2) H 09/08/16 10:15 Estimated GFR 39 ml/min 09/08/16 10:15 BUN/Creatinine Ratio 12.66 % 09/08/16 10:15 Glucose 128 mg/dL (65-100) H 09/08/16 10:15 POC Glucose 92 (70-105) 09/04/16 08:19 Lactic Acid 2.0 mmol/L (0.7-2.0) 08/29/16 04:30 Calcium 7.3 mg/dL (8.4-10.2) L 09/08/16 10:15 Magnesium 4.5 mg/dL (1.7-2.3) H 08/26/16 04:50 Total Bilirubin 4.8 mg/dL (0.1-1.2) H 09/08/16 10:15 Direct Bilirubin 15.7 mg/dL (0-0.2) H 09/03/16 05:19 Indirect Bilirubin 4.2 mg/dL 09/03/16 05:19 AST 25 units/L (5-40) 09/08/16 10:15 ALT 16 units/L (7-56) 09/08/16 10:15 Alkaline Phosphatase 165 units/L (35-129) H 09/08/16 10:15 Ammonia 44.0 umol/L (25-60) 08/30/16 05:40 Lactate Dehydrogenase 844 units/L (91-180) H 08/27/16 08:40 Total Creatine Kinase 1295 units/L (30-135) H 08/24/16 05:00 NT-Pro-B Natriuret Pep 241.0 pg/mL (0-450) 08/27/16 16:30 Total Protein 5.1 g/dL (6.3-8.2) L 09/08/16 10:15 Albumin 1.7 g/dL (3.9-5) L 09/08/16 10:15 Albumin/Globulin Ratio 0.5 % 09/08/16 10:15 LDL Cholesterol Direct 38 mg/dL (50-130) L 08/23/16 07:50 Vitamin B12 > 2000 pg/mL (211-911) H 08/27/16 11:15 Folate 10.54 ng/mL (7.3-26.0) 08/27/16 11:15 Urine Color [place] (Yellow) 08/27/16 15:20 Urine Turbidity Clear (Clear) 08/27/16 15:20 Urine pH 6.0 (5.0-7.0) 08/27/16 15:20 Ur Specific [place] 1.018 (1.003-1.030) 08/27/16 15:20 Urine Protein 30 mg/dl mg/dL (Negative) 08/27/16 15:20 Urine Glucose (UA) Neg mg/dL (Negative) 08/27/16 15:20 Urine Ketones Neg mg/dL (Negative) 08/27/16 15:20 Urine Blood Mod (Negative) 08/27/16 15:20 Urine Nitrite Neg (Negative) 08/27/16 15:20 Urine Bilirubin Mod (Negative) 08/27/16 15:20 Urine Ictotest Positive (Negative) 08/27/16 15:20 Urine Urobilinogen 4.0 mg/dL (<2.0) 08/27/16 15:20 Ur Leukocyte Esterase Neg (Negative) 08/27/16 15:20 Urine WBC (Auto) 10.0 /HPF (0.0-6.0) H 08/27/16 15:20 Urine RBC (Auto) 7.0 /HPF (0.0-6.0) 08/27/16 15:20 U Epithel Cells (Auto) < 1.0 /HPF (0-13.0) 08/27/16 15:20 Granular Casts 4 /LPF 08/27/16 15:20 Urine Mucus Few /HPF 08/27/16 15:20 Urine Opiates Screen Presumptive negative 08/22/16 18:30 Urine Methadone Screen Presumptive negative 08/22/16 18:30 Ur Barbiturates Screen Presumptive negative 08/22/16 18:30 Ur Phencyclidine Scrn Presumptive negative 08/22/16 18:30 Ur Amphetamines Screen Presumptive negative 08/22/16 18:30 U Benzodiazepines Scrn Presumptive negative 08/22/16 18:30 Urine Cocaine Screen Presumptive negative 08/22/16 18:30 U Marijuana (THC) Screen Presumptive negative 08/22/16 18:30 Drugs of Abuse Note Disclamer 08/22/16 18:30 RPR Nonreactive (Nonreactive) 08/22/16 18:34 CMV IgG Ab 2.92 (<=0.90) H 08/22/16 18:34 CMV IgM Ab <0.2 (()) 08/22/16 18:34 CMV DNA PCR log hand coper/mL See scanned report 08/23/16 13:03 Hepatitis A IgM Ab -1 (NonReactive) 08/27/16 11:15 Hep Bs Antigen Non-reactive (Negative) 08/22/16 18:34 Hepatitis C Antibody Non-reactive (NonReactive) 08/22/16 18:34 Herpes Simplex Source Swab (()) 08/25/16 11:45 HSV I DNA PCR Not detected (Not Detected) 08/25/16 11:45 HSV II DNA PCR Not detected (Not Detected) 08/25/16 11:45 HIV 1&2 Antibody Rapid Non react (Non React) 08/23/16 09:25 HIV P24 Antigen Non react (Non React) 08/23/16 09:25 Rubella IgG Antibody Immune (Immune) 08/22/16 18:34 Rubella IgM Antibody <0.90 (<0.90) 08/22/16 18:34 Schistocytes Smear Rare 08/26/16 04:50 Toxoplasma IgG Ab <=0.90 (<=0.90) 08/22/16 18:34 Toxoplasma IgM Ab Negative (Negative) 08/22/16 18:34 Miscellaneous Test Flexitest 1 08/28/16 17:41 Blood Type O NEGATIVE 08/31/16 12:15 Antibody Screen Positive 08/31/16 12:15 Antibody Identification Anti-D (Passively Aquired) 08/31/16 12:15 Direct Antiglob Test Negative 08/27/16 08:20 JYOTI, Poly Interpret Negative 08/27/16 08:20 KB % Cells Negative 08/22/16 Unknown Crossmatch See Detail 08/31/16 12:15 Pre-Trans JYOTI Negative 08/27/16 15:20 Pre-Trans JYOTI Poly Negative 08/27/16 15:20 Post-Trans Blood Type O negative 08/27/16 15:20 Post-Trans JYOTI Negative 08/27/16 15:20 Post-Trans JYOTI Poly Negative 08/27/16 15:20
[2016-09-08] MEDS: PERCOCET 5/325 PO PRN (21:14)
[2016-09-09] MEDS: KEFLEX PO SCH ×4 (00:20→17:58)
[2016-09-09 06:11] LABS: Basophils % (Auto) 0.9 % (0.0-1.8); Eosinophils % (Auto) 3.3 % (0.0-4.3); Hematocrit 25.9 % (30.3-42.9); Hemoglobin 8.6 gm/dl (10.1-14.3); Mean Corpuscular HGB Conc 33 % (30-34); Mean Corpuscular Hemoglobin 32 pg (28-32); Mean Corpuscular Volume 97 fl (79-97); Platelet Count 211 K/mm3 (140-440); Red Blood Count 2.66 M/mm3 (3.65-5.03); White Blood Count 6.3 K/mm3 (4.5-11.0)
[2016-09-09 06:22] LABS: Red Cell Distribution Width 23.8 % (13.2-15.2)
[2016-09-09 06:36] LABS: Calcium 7.4 mg/dL (8.4-10.2); Chloride 109.5 mmol/L (98-107)
[2016-09-09] MEDS ORDERED: K-DUR PO ONE (09:00)
[2016-09-09] MEDS ORDERED: KCL 20MEQ/100ML 20 MEQ/100 ML BAG IV ONE (10:00)
[2016-09-09] MEDS: FEOSOL PO SCH (11:18)
[2016-09-09] MEDS ORDERED: KCL 10MEQ/100ML 10 MEQ/100 ML BAG IV ONE (12:00)
--- NOTE | 2016-09-09 13:01 | Progress Note ---
Assessment and Plan Assessment and plan: 1. HELLP syndrome - baby delivered through ; supportive care; s/p transfusion PRBC, FFP; LFTs trending down and normalized; platelets continue to trend up, within normal limits now 2. SIRS - sepsis suspected, but no evidence of infection; antibiotics discontinued 3. Anemia - combination of anemia/blood loss/hemolytic anemia due to HELLP; s/p total of 6 units PRBCs; hemoglobin stable;continue to monitor H&H 4. Thrombocytopenia - secondary to HELLP; resolved 5. Coagulopathy - sec to HELLP; received 2 units FFP; now resolved 6. Acute kidney injury -almost resolved with IV hydration, now creatinine going up; restarted ivf. Creatinine improved to 1.5. Etiology likely secondary to vasomotor nephropathy. Encourage po intake. 7. Hyperkalemia - medically treated, resolved 8. Acute encephalopathy - likely secondary to HELLP; resolved 9. Malnutrition - dietitian consulted for supplementation 10. Debility - PT daily 11. S/p 08/13/16 12. Discharge planning. Patient is medically stable for discharge. Patient will just need follow-up with PCP to recheck creatinine. History Interval history: No new issues overnight. Hospitalist Physical - Constitutional Vitals: Temp Pulse Resp BP Pulse Ox 98.0 F 69 20 114/73 97 09/09/16 04:51 09/09/16 04:51 09/09/16 04:51 09/09/16 04:51 09/09/16 04:51 General appearance: Present: no acute distress, well-nourished - EENT Eyes: Present: PERRL, EOM intact ENT: hearing intact, clear oral mucosa, dentition normal - Neck Neck: Present: supple, normal ROM - Respiratory Respiratory effort: normal Respiratory: bilateral: CTA - Cardiovascular Rhythm: regular Heart Sounds: Present: S1 & S2. Absent: gallop, rub - Extremities Extremities: no ischemia, No edema, Full ROM - Abdominal General gastrointestinal: soft, non-tender, non-distended, normal bowel sounds - Integumentary Integumentary: Present: clear, warm, dry - Neurologic Neurologic: CNII-XII intact, moves all extremities Results - Labs CBC & Chem 7: 09/09/16 04:47 09/09/16 04:47 Labs: Laboratory Last Values WBC 6.3 K/mm3 (4.5-11.0) 09/09/16 04:47 RBC 2.66 M/mm3 (3.65-5.03) L 09/09/16 04:47 Hgb 8.6 gm/dl (10.1-14.3) L 09/09/16 04:47 Hct 25.9 % (30.3-42.9) L 09/09/16 04:47 MCV 97 fl (79-97) 09/09/16 04:47 MCH 32 pg (28-32) 09/09/16 04:47 MCHC 33 % (30-34) 09/09/16 04:47 RDW 23.8 % (13.2-15.2) H 09/09/16 04:47 Plt Count 211 K/mm3 (140-440) 09/09/16 04:47 Lymph % (Auto) 25.9 % (13.4-35.0) 09/09/16 04:47 [place] % (Auto) 7.2 % (0.0-7.3) 09/09/16 04:47 Eos % (Auto) 3.3 % (0.0-4.3) 09/09/16 04:47 Baso % (Auto) 0.9 % (0.0-1.8) 09/09/16 04:47 Lymph # 1.6 K/mm3 (1.2-5.4) 09/09/16 04:47 [place] # 0.5 K/mm3 (0.0-0.8) 09/09/16 04:47 Eos # 0.2 K/mm3 (0.0-0.4) 09/09/16 04:47 Baso # 0.1 K/mm3 (0.0-0.1) 09/09/16 04:47 Add Manual Diff Complete 08/31/16 05:20 Total Counted 100 08/31/16 05:20 Seg Neutrophils % 62.7 % (40.0-70.0) 09/09/16 04:47 Seg Neuts % (Manual) 83.0 % (40.0-70.0) H 08/31/16 05:20 Band Neutrophils % 0 % 08/31/16 05:20 Lymphocytes % (Manual) 5.0 % (13.4-35.0) L 08/31/16 05:20 Reactive Lymphs % (Man) 0 % 08/31/16 05:20 Monocytes % (Manual) 7.0 % (0.0-7.3) 08/31/16 05:20 Eosinophils % (Manual) 5.0 % (0.0-4.3) H 08/31/16 05:20 Basophils % (Manual) 0 % (0.0-1.8) 08/31/16 05:20 Metamyelocytes % 0 % 08/31/16 05:20 Myelocytes % 0 % 08/31/16 05:20 Promyelocytes % 0 % 08/31/16 05:20 Blast Cells % 0 % 08/31/16 05:20 Nucleated RBC % 7.0 % (0.0-0.9) H 08/31/16 05:20 Seg Neutrophils # 3.9 K/mm3 (1.8-7.7) 09/09/16 04:47 Seg Neutrophils # Man 12.0 K/mm3 (1.8-7.7) H 08/31/16 05:20 Band Neutrophils # 0.0 K/mm3 08/31/16 05:20 Lymphocytes # (Manual) 0.7 K/mm3 (1.2-5.4) L 08/31/16 05:20 Abs React Lymphs (Man) 0.0 K/mm3 08/31/16 05:20 Monocytes # (Manual) 1.0 K/mm3 (0.0-0.8) H 08/31/16 05:20 Eosinophils # (Manual) 0.7 K/mm3 (0.0-0.4) H 08/31/16 05:20 Basophils # (Manual) 0.0 K/mm3 (0.0-0.1) 08/31/16 05:20 Metamyelocytes # 0.0 K/mm3 08/31/16 05:20 Myelocytes # 0.0 K/mm3 08/31/16 05:20 Promyelocytes # 0.0 K/mm3 08/31/16 05:20 Blast Cells # 0.0 K/mm3 08/31/16 05:20 WBC Morphology Not Reportable 08/31/16 05:20 Hypersegmented Neuts Not Reportable 08/31/16 05:20 Hyposegmented Neuts Not Reportable 08/31/16 05:20 Hypogranular Neuts Not Reportable 08/31/16 05:20 Smudge Cells Not Reportable 08/31/16 05:20 Toxic Granulation Not Reportable 08/31/16 05:20 Toxic Vacuolation Not Reportable 08/31/16 05:20 Dohle Bodies Not Reportable 08/31/16 05:20 Pelger-Huet Anomaly Not Reportable 08/31/16 05:20 Alaina Rods Not Reportable 08/31/16 05:20 Platelet Estimate Appears decreased 08/31/16 05:20 Clumped Platelets Not Reportable 08/31/16 05:20 Plt Clumps, EDTA Not Reportable 08/31/16 05:20 Large Platelets Rare 08/31/16 05:20 Giant Platelets Not Reportable 08/31/16 05:20 Platelet Satelliting Not Reportable 08/31/16 05:20 Plt Morphology Comment Not Reportable 08/31/16 05:20 RBC Morphology Not Reportable 08/31/16 05:20 Dimorphic RBCs Not Reportable 08/31/16 05:20 Polychromasia 1+ 08/31/16 05:20 Hypochromasia Not Reportable 08/31/16 05:20 Poikilocytosis Not Reportable 08/31/16 05:20 Anisocytosis 1+ 08/31/16 05:20 Microcytosis Not Reportable 08/31/16 05:20 Macrocytosis Not Reportable 08/31/16 05:20 Spherocytes Not Reportable 08/31/16 05:20 Pappenheimer Bodies Not Reportable 08/31/16 05:20 Sickle Cells Not Reportable 08/31/16 05:20 Target Cells Not Reportable 08/31/16 05:20 Tear Drop Cells Rare 08/31/16 05:20 Ovalocytes Not Reportable 08/31/16 05:20 Helmet Cells Not Reportable 08/31/16 05:20 Whittaker-[place] Bodies Not Reportable 08/31/16 05:20 [place] Rings Not Reportable 08/31/16 05:20 Soumya Cells Not Reportable 08/31/16 05:20 Bite Cells Not Reportable 08/31/16 05:20 Crenated Cell Not Reportable 08/31/16 05:20 Elliptocytes Not Reportable 08/31/16 05:20 Acanthocytes (Spur) Not Reportable 08/31/16 05:20 Rouleaux Not Reportable 08/31/16 05:20 Hemoglobin C Crystals Not Reportable 08/31/16 05:20 Schistocytes Not Reportable 08/31/16 05:20 Malaria parasites Not Reportable 08/31/16 05:20 Percent Retic 6.59 % (0.78-2.58) H 08/27/16 11:15 Sickle Cell Screen Negative (Negative) 08/22/16 18:48 Daljit Bodies Not Reportable 08/31/16 05:20 Haptoglobin <15 mg/dL (43-212) L 08/27/16 11:15 Hem Pathologist Commnt No 08/31/16 05:20 PT 15.5 Sec. (12.2-14.9) H 09/03/16 05:51 INR 1.24 (0.87-1.13) H 09/03/16 05:51 APTT 42.3 Sec. (24.2-36.6) H 08/25/16 05:45 POC ABG pH 7.479 (7.35-7.45) H 08/24/16 14:12 POC ABG pCO2 29.6 (35-45) L 08/24/16 14:12 POC ABG pO2 62 (80-105) L 08/24/16 14:12 POC ABG HCO3 21.9 08/24/16 14:12 POC ABG Total CO2 23 08/24/16 14:12 POC ABG O2 Sat 93 08/24/16 14:12 POC ABG Base Excess -2 08/24/16 14:12 FiO2 3 % 08/24/16 14:12 Sodium 140 mmol/L (137-145) 09/09/16 04:47 Potassium 3.0 mmol/L (3.6-5.0) L 09/09/16 04:47 Chloride 109.5 mmol/L (98-107) H 09/09/16 04:47 Carbon Dioxide 22 mmol/L (22-30) 09/09/16 04:47 Anion Gap 12 mmol/L 09/09/16 04:47 BUN 18 mg/dL (7-17) H 09/09/16 04:47 Creatinine 1.5 mg/dL (0.7-1.2) H 09/09/16 04:47 Estimated GFR 39 ml/min 09/09/16 04:47 BUN/Creatinine Ratio 12.00 % 09/09/16 04:47 Glucose 80 mg/dL (65-100) 09/09/16 04:47 POC Glucose 92 (70-105) 09/04/16 08:19 Lactic Acid 2.0 mmol/L (0.7-2.0) 08/29/16 04:30 Calcium 7.4 mg/dL (8.4-10.2) L 09/09/16 04:47 Magnesium 4.5 mg/dL (1.7-2.3) H 08/26/16 04:50 Total Bilirubin 4.8 mg/dL (0.1-1.2) H 09/08/16 10:15 Direct Bilirubin 15.7 mg/dL (0-0.2) H 09/03/16 05:19 Indirect Bilirubin 4.2 mg/dL 09/03/16 05:19 AST 25 units/L (5-40) 09/08/16 10:15 ALT 16 units/L (7-56) 09/08/16 10:15 Alkaline Phosphatase 165 units/L (35-129) H 09/08/16 10:15 Ammonia 44.0 umol/L (25-60) 08/30/16 05:40 Lactate Dehydrogenase 844 units/L (91-180) H 08/27/16 08:40 Total Creatine Kinase 1295 units/L (30-135) H 08/24/16 05:00 NT-Pro-B Natriuret Pep 241.0 pg/mL (0-450) 08/27/16 16:30 Total Protein 5.1 g/dL (6.3-8.2) L 09/08/16 10:15 Albumin 1.7 g/dL (3.9-5) L 09/08/16 10:15 Albumin/Globulin Ratio 0.5 % 09/08/16 10:15 LDL Cholesterol Direct 38 mg/dL (50-130) L 08/23/16 07:50 Vitamin B12 > 2000 pg/mL (211-911) H 08/27/16 11:15 Folate 10.54 ng/mL (7.3-26.0) 08/27/16 11:15 Urine Color [place] (Yellow) 08/27/16 15:20 Urine Turbidity Clear (Clear) 08/27/16 15:20 Urine pH 6.0 (5.0-7.0) 08/27/16 15:20 Ur Specific [place] 1.018 (1.003-1.030) 08/27/16 15:20 Urine Protein 30 mg/dl mg/dL (Negative) 08/27/16 15:20 Urine Glucose (UA) Neg mg/dL (Negative) 08/27/16 15:20 Urine Ketones Neg mg/dL (Negative) 08/27/16 15:20 Urine Blood Mod (Negative) 08/27/16 15:20 Urine Nitrite Neg (Negative) 08/27/16 15:20 Urine Bilirubin Mod (Negative) 08/27/16 15:20 Urine Ictotest Positive (Negative) 08/27/16 15:20 Urine Urobilinogen 4.0 mg/dL (<2.0) 08/27/16 15:20 Ur Leukocyte Esterase Neg (Negative) 08/27/16 15:20 Urine WBC (Auto) 10.0 /HPF (0.0-6.0) H 08/27/16 15:20 Urine RBC (Auto) 7.0 /HPF (0.0-6.0) 08/27/16 15:20 U Epithel Cells (Auto) < 1.0 /HPF (0-13.0) 08/27/16 15:20 Granular Casts 4 /LPF 08/27/16 15:20 Urine Mucus Few /HPF 08/27/16 15:20 Urine Opiates Screen Presumptive negative 08/22/16 18:30 Urine Methadone Screen Presumptive negative 08/22/16 18:30 Ur Barbiturates Screen Presumptive negative 08/22/16 18:30 Ur Phencyclidine Scrn Presumptive negative 08/22/16 18:30 Ur Amphetamines Screen Presumptive negative 08/22/16 18:30 U Benzodiazepines Scrn Presumptive negative 08/22/16 18:30 Urine Cocaine Screen Presumptive negative 08/22/16 18:30 U Marijuana (THC) Screen Presumptive negative 08/22/16 18:30 Drugs of Abuse Note Disclamer 08/22/16 18:30 RPR Nonreactive (Nonreactive) 08/22/16 18:34 CMV IgG Ab 2.92 (<=0.90) H 08/22/16 18:34 CMV IgM Ab <0.2 (()) 08/22/16 18:34 CMV DNA 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/mL See scanned report 08/23/16 13:03 Hepatitis A IgM Ab -1 (NonReactive) 08/27/16 11:15 Hep Bs Antigen Non-reactive (Negative) 08/22/16 18:34 Hepatitis C Antibody Non-reactive (NonReactive) 08/22/16 18:34 Herpes Simplex Source Swab (()) 08/25/16 11:45 HSV I DNA PCR Not detected (Not Detected) 08/25/16 11:45 HSV II DNA PCR Not detected (Not Detected) 08/25/16 11:45 HIV 1&2 Antibody Rapid Non react (Non React) 08/23/16 09:25 HIV P24 Antigen Non react (Non React) 08/23/16 09:25 Rubella IgG Antibody Immune (Immune) 08/22/16 18:34 Rubella IgM Antibody <0.90 (<0.90) 08/22/16 18:34 Schistocytes Smear Rare 08/26/16 04:50 Toxoplasma IgG Ab <=0.90 (<=0.90) 08/22/16 18:34 Toxoplasma IgM Ab Negative (Negative) 08/22/16 18:34 Miscellaneous Test Flexitest 1 08/28/16 17:41 Blood Type O NEGATIVE 08/31/16 12:15 Antibody Screen Positive 08/31/16 12:15 Antibody Identification Anti-D (Passively Aquired) 08/31/16 12:15 Direct Antiglob Test Negative 08/27/16 08:20 JYOTI, Poly Interpret Negative 08/27/16 08:20 KB % Cells Negative 08/22/16 Unknown Crossmatch See Detail 08/31/16 12:15 Pre-Trans JYOTI Negative 08/27/16 15:20 Pre-Trans JYOTI Poly Negative 08/27/16 15:20 Post-Trans Blood Type O negative 08/27/16 15:20 Post-Trans JYOTI Negative 08/27/16 15:20 Post-Trans JYOTI Poly Negative 08/27/16 15:20
--- NOTE | 2016-09-09 15:28 | Progress Note ---
Assessment and Plan pod 17. d/c home this pm if potassium is wnl. to f/u with [facility] on Wednesday between 9am to 1 pm. Subjective - Subjective Date of service: 09/09/16 Principal diagnosis: Acute Fatty liver disease resolving Interval history: Pt pod 17 s/p primary c/s. Improving liver and renal functions. pt ambulating today, Voiding without difficulty. pt seen by wound care nurse recommending once daily dressing change will reconsult today. Consider d/c tomorrow or later this pm if approved by GI and hospitalist. Will arrange for wound care as outpatient. Little change in BUN and creatinine after fluid last pm. Will check with hospitalist re- discharge. Wound care nurse has evaluated patient and instructed patients family on care of wound. Awaiting potassium level this pm, if improved. Patient reports: appetite normal, voiding normally, pain well controlled [place]: transported Objective - Vital Signs Latest vital signs: Vital Signs Temp Pulse Pulse Pulse Resp BP Pulse Ox 09/09/16 04:51 98.0 F 69 20 114/73 97 09/09/16 04:00 60 09/09/16 00:59 98.3 F 68 20 104/59 98 09/08/16 21:42 98.4 F 71 20 128/70 98 09/08/16 18:06 97.5 F L 76 18 125/79 100 Intake and Output 09/09/16 09/09/16 09/09/16 06:59 14:59 22:59 Intake Total 0 300 Balance 0 300 Intake: Oral 0 300 Other: Total, Intake Amount 0 300 Voiding Method Toilet # Voids Void 1 Weight 84.6 kg - Exam Breasts: Present: deferred Cardiovascular: Present: Regular rate, Normal S1, Normal S2 Abdomen: Present: normal appearance, soft Vulva: both: normal Uterus: Present: normal, firm Extremities: Present: normal Deep Tendon Reflex Grade: Normal +2 Incision: Present: edematous, intact - Labs Labs: Abnormal lab results 09/09/16 09/09/16 Range/Units 04:47 04:47 RBC 2.66 L (3.65-5.03) M/mm3 Hgb 8.6 L (10.1-14.3) gm/dl Hct 25.9 L (30.3-42.9) % RDW 23.8 H (13.2-15.2) % Potassium 3.0 L (3.6-5.0) mmol/L Chloride 109.5 H (98-107) mmol/L BUN 18 H (7-17) mg/dL Creatinine 1.5 H (0.7-1.2) mg/dL Calcium 7.4 L (8.4-10.2) mg/dL
--- NOTE | 2016-09-09 15:35 | Discharge Summary ---
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 08/26/16 14:15 Consult to Physician [CONS] Routine Consulting Provider: ADAM GATICA Reason For Exam: Thrombocytopenia Place consult to:: [facility] Notified:: office Phone number called:: [phone] Was contact made?: Yes If yes, spoke with:: danisha Time called:: 14:29 08/28/16 08:35 Consult to Physician [CONS] Routine Consulting Provider: VINICIO HADDAD Reason For Exam: infection Place consult to:: Notified:: yes Was contact made?: Yes If yes, spoke with:: dr haddad 08/28/16 09:48 Consult to Physician [CONS] Urgent Consulting Provider: NICOLE CANTU Reason For Exam: elevated LFTs Place consult to:: Nicole Cantu Notified:: yes Was contact made?: Yes If yes, spoke with:: chago Chávez Time called:: 09:50 09/02/16 14:28 Physical Therapy Evaluation and Treat [CONS] Urgent Comment: Reason For Exam: deconditioning 09/04/16 11:23 Consult to Wound/ET Nurse [CONS] Routine Reason For Exam: wound eval 09/07/16 09:53 Consult to Wound/ET Nurse [CONS] Urgent Reason For Exam: wound eval- today Primary care physician: CONCEPCION MAYERS Hospitalization Reason for admission: labor, other (non reassuring FHT) Delivery: Procedure: section, primary low transverse Procedure details: s/p delivery of 32 week male fetus. fetus transferred to [facility] Episiotomy: none Laceration: none Incision: skin (followed by wound clinic while in hospital and f/u with them upon discharge) complications: transfusion (x 6 units of PRBC's and 2 Units of FFP. ) , other (Acute fatty liver disease of , pt hospitalized in icu for 10 days. then on telemetry for 7 days) Discharge diagnosis: delivery Condition at discharge: Fair Disposition: DISCHARGED TO HOME OR SELFCARE - Discharge Diagnoses (1) Acute fatty liver of in third trimester Status: Acute (2) Status post primary low transverse section Status: Acute (3) Anemia Status: Acute Qualifiers: Anemia type: A Iron deficiency anemia type: I Vitamin B12 deficiency anemia type: V Folate deficiency anemia type: F Bone marrow failure anemia type: B Hemolytic anemia type: acquired, unspecified Other causes of anemia : O Qualified Code(s): D59.9 - Acquired hemolytic anemia, unspecified; D59 - Acquired hemolytic anemia Plan - Discharge Medications Prescriptions: Cephalexin [Keflex] 500 mg PO Q6HR #20 capsule Ferrous Sulfate [Feosol 325 MG tab] 325 mg PO BID #60 tablet oxyCODONE /ACETAMINOPHEN [Percocet 5/325] 1 tab PO Q6HR PRN #30 tablet PRN Reason: Pain - Provider Discharge Summary Activity: routine, no sex for 6 weeks, no heavy lifting 4 weeks, no strenuous exercise Diet: routine Instructions: routine Additional instructions: [] Smoking cessation referral if applicable(refer to patient education folder for contact #) [] Refer to [facility]'s [facility] Booklet Call your doctor immediately for: * Fever > 100.5 * Heavy vaginal bleeding ( >1 pad per hour) * Severe persistent headache * Shortness of breath * Reddened, hot, painful area to leg or breast * Drainage or odor from incision. * Keep incision clean and dry at all times and follow doctor's instructions regarding bathing/showering - Follow up plan Follow up: CONCEPCION MAYERS MD [Primary Care Provider] - 09/12/16 Forms: Work/School Release Form
--- NOTE | 2016-09-09 15:42 | Event Note ---
Date: 09/09/16 Upon discharge patient to f/u in ob / clinic on 09/12/16, Medical clinic on wednesday09/11/16. Case management trying to arrange f/u at wound care clinic.
[2016-09-09 18:31] VITALS: BP 127/71
[2016-09-09 19:55] LABS: BUN/Creatinine Ratio 12.14; Calcium 7.1 mg/dL (8.4-10.2); Chloride 105.5 mmol/L (98-107); Potassium 3.5 mmol/L (3.6-5.0)
== END 2016-09-09 20:52 | disposition home or self-care (01) | DRG 765 ==
LOC: TRG 14:40 → LD 14:42 → TRG 16:41 → LD 16:42 → OB 21:37 → CC1 08-23 08:30 → 4A 08-31 20:58
PROVIDERS: ADMIT Specialist; ATTEND Obstetrics & Gynecology
PROC: 10D00Z1 Extraction of Products of Conception, Low, Open Approach (ICD-10-PCS; principal; 2016-08-22)
PROC: 02HV33Z Insertion of Infusion Device into Superior Vena Cava, Percutaneous Approach (ICD-10-PCS; 2016-08-22)
PROC: 30233L1 Transfusion of Nonautologous Fresh Plasma into Peripheral Vein, Percutaneous Approach (ICD-10-PCS; 2016-08-22)
PROC: 30233K1 Transfusion of Nonautologous Frozen Plasma into Peripheral Vein, Percutaneous Approach (ICD-10-PCS; 2016-08-22)
PROC: 30233N1 Transfusion of Nonautologous Red Blood Cells into Peripheral Vein, Percutaneous Approach (ICD-10-PCS; 2016-08-22)
DX: O76 Abnormality in fetal heart rate and rhythm complicating labor and delivery (principal); G93.41 Metabolic encephalopathy; E43 Unspecified severe protein-calorie malnutrition; N17.0 Acute kidney failure with tubular necrosis; O99.42 Diseases of the circulatory system complicating childbirth; J96.01 Acute respiratory failure with hypoxia; O98.52 Other viral diseases complicating childbirth; O26.833 Pregnancy related renal disease, third trimester; O99.354 Diseases of the nervous system complicating childbirth; O72.1 Other immediate postpartum hemorrhage; O26.62 Liver and biliary tract disorders in childbirth; O98.82 Other maternal infectious and parasitic diseases complicating childbirth; D62 Acute posthemorrhagic anemia; R65.10 Systemic inflammatory response syndrome (SIRS) of non-infectious origin without acute organ dysfunction; O99.12 Other diseases of the blood and blood-forming organs and certain disorders involving the immune mechanism complicating childbirth; K72.90 Hepatic failure, unspecified without coma; O14.24 HELLP syndrome, complicating childbirth; Z3A.31 31 weeks gestation of pregnancy; Z37.0 Single live birth; O77.0 Labor and delivery complicated by meconium in amniotic fluid; O99.52 Diseases of the respiratory system complicating childbirth; O26.893 Other specified pregnancy related conditions, third trimester; D72.829 Elevated white blood cell count, unspecified; O26.53 Maternal hypotension syndrome, third trimester; E87.5 Hyperkalemia; Z68.31 Body mass index [BMI] 31.0-31.9, adult; K76.0 Fatty (change of) liver, not elsewhere classified; O99.02 Anemia complicating childbirth; D69.6 Thrombocytopenia, unspecified
CPT/HCPCS: 36415; 36600; 71010; 76700; 76816; 76819; 80048; 80053; 80074; 80307; 81003; 81015; 82140; 82248; 82550; 82607; 82747; 82803; 82962; 83010; 83615; 83721; 83735; 83880; 84132; 85007; 85014; 85018; 85025; 85027; 85045; 85460; 85610; 85660; 85730; 86592; 86644; 86645; 86706; 86708; 86709; 86762; 86777; 86778; 86803; 86850; 86870; 86880; 86900; 86901; 86920; 87040; 87086; 87400; 87497; 87529; 87806; 88307; 93005; 93010; 93306; 94760; J0690; J1200; J1885; J1956; J2210; J2270; J2310; J2370; J2405; J2543; J2590; J2704; J2765; J2920; J3370; J3475; J3480; J7030; J7040; J7050; J7070; J7120; J7121; P9016; P9017

== ENCOUNTER 2016-09-14 08:23 | Outpatient (CLI) | payer OTHER ==
[2016-09-14] MEDS ORDERED: XYLOCAINE TOPICAL 4% TP ONE ×2 (09:31→09:34)
== END 2016-09-14 08:24 | disposition home or self-care (01) ==
LOC: WOUND 08:23
PROVIDERS: ATTEND Internal Medicine
DX: T81.89XA Other complications of procedures, not elsewhere classified, initial encounter (principal); F41.9 Anxiety disorder, unspecified; Y92.9 Unspecified place or not applicable; Y83.8 Other surgical procedures as the cause of abnormal reaction of the patient, or of later complication, without mention of misadventure at the time of the procedure
CPT/HCPCS: 99205; 99215; G0463

== ENCOUNTER 2016-09-14 10:31 | Emergency (ER) | payer SELFPAY ==
[2016-09-14 12:41] LABS: Bacteria,Urine 1+ /HPF (Negative); Bilirubin,Urine NEG (Negative); Blood,Urine SM (Negative); Ketones,Urine NEG (Negative); Leukocyte Esterase,Urine LG (Negative); Nitrite,Urine NEG (Negative); Protein,Urine <15 mg/dL mg/dL (Negative); Urobilinogen,Urine < 2.0 mg/dL (<2.0)
[2016-09-14 13:48] LABS: Basophils % (Auto) 0.8 % (0.0-1.8); Eosinophils % (Auto) 1.7 % (0.0-4.3); Hematocrit 30.6 % (30.3-42.9); Hemoglobin 10.1 gm/dl (10.1-14.3); Mean Corpuscular HGB Conc 33 % (30-34); Mean Corpuscular Hemoglobin 32 pg (28-32); Mean Corpuscular Volume 97 fl (79-97); Platelet Count 424 K/mm3 (140-440); Red Blood Count 3.17 M/mm3 (3.65-5.03); White Blood Count 7.8 K/mm3 (4.5-11.0)
[2016-09-14 13:58] LABS: INR 1.07 (0.87-1.13)
[2016-09-14 14:04] LABS: Alanine Aminotransferase 19 units/L (7-56); Albumin 2.4 g/dL (3.9-5); Albumin/Globulin Ratio 0.5 %; Alkaline Phosphatase 189 units/L (35-129); Anion Gap 15 mmol/L; BUN/Creatinine Ratio 8.88; Bilirubin,Total 3.4 mg/dL (0.1-1.2); Blood Urea Nitrogen 8 mg/dL (7-17); Calcium 7.8 mg/dL (8.4-10.2); Carbon Dioxide 23 mmol/L (22-30); Glucose 99 mg/dL (65-100); Potassium 3.9 mmol/L (3.6-5.0); Sodium 140 mmol/L (137-145); Total Protein 6.8 g/dL (6.3-8.2)
--- NOTE | 2016-09-14 16:33 | Emergency Department Report ---
- General Chief Complaint: Wound/Laceration Stated Complaint: WOUND INFECTION/POST C SETION Time Seen by Provider: 09/14/16 16:12 Source: patient, family Mode of arrival: Ambulatory Limitations: No Limitations - History of Present Illness Initial Comments: Patient here status post emergent on 08/22/2016. Status post kidney, liver and heart failure. Patient had emergency and was in ICU heart and kidney failure. She has been given care and to send patient to emergency room due to.. She was discharged from hospital last week Wednesday. Patient under care of Dr. Sebastián Escalante [employer]. She denies any pain. Denies any fever or chills. Denies any nausea vomiting or diarrhea. Patient is currently recovering from kidney, liver and heart failure and she is jaundice swollen legs started with emergency . -: week(s) Location: abdomen Place: home Patient Tetanus UTD: Yes Context: other (status post surgical wound) Associated Symptoms: none Treatments Prior to Arrival: bandage - Related Data Home Medications Medication Instructions Recorded Confirmed Last Taken Acetaminophen [Shake That Ache] 500 mg PO Q6HR 08/22/16 08/22/16 08/22/16 09:00 1 Mucinex Dm ER 1,200-60 mg Tab 1 tab PO BID 08/22/16 08/22/16 08/22/16 09:00 1 Oseltamivir [Tamiflu] 75 mg PO BID 08/22/16 08/22/16 08/22/16 09:00 1 Pnv95/Ferrous Fumarate/FA 1 each PO DAILY 08/22/16 08/22/16 08/22/16 09:00 [Prenavite Tablet] 1 Ranitidine HCl [Acid Control] 150 mg PO BID 08/22/16 08/22/16 08/22/16 09:00 1 Previous Rx's Medication Instructions Recorded Last Taken Type Ferrous Sulfate [Feosol 325 MG tab] 325 mg PO BID #60 tablet 09/05/16 Unknown Rx oxyCODONE /ACETAMINOPHEN [Percocet 1 tab PO Q6HR PRN #30 tablet 09/05/16 Unknown Rx 5/325] Zolpidem [Ambien] 10 mg PO QHS #7 tab 09/09/16 Unknown Rx Sulfamethoxazole/Trimethoprim 1 each PO BID #20 tablet 09/14/16 Unknown Rx [Bactrim DS TAB] Allergies Allergy/AdvReac Type Severity Reaction Status Date / Time No Known Allergies Allergy Verified 08/22/16 15:18 ED Review of Systems ROS: Stated complaint: WOUND INFECTION/POST C SETION Other details as noted in HPI Comment: All other systems reviewed and negative Constitutional: denies: chills, fever Respiratory: no symptoms reported Cardiovascular: denies: chest pain, palpitations, edema, syncope Gastrointestinal: denies: abdominal pain, nausea, vomiting, diarrhea Musculoskeletal: denies: back pain, arthralgia Skin: other (postsurgical abdominal) Neurological: denies: headache ED Past Medical Hx - Past Medical History Previous Medical History?: Yes Hx Hypertension: No Hx Congestive Heart Failure: No Hx Diabetes: No Hx Deep Vein Thrombosis: No Hx Renal Disease: No Hx Seizures: No Hx Asthma: No Hx COPD: No Additional medical history: HELLP syndrome - Surgical History Past Surgical History?: Yes Additional Surgical History: - Family History Family history: hypertension - Social History Smoking Status: Never Smoker Substance Use Type: None - Medications Home Medications: Home Medications Medication Instructions Recorded Confirmed Last Taken Type Acetaminophen [Shake That Ache] 500 mg PO Q6HR 08/22/16 08/22/16 08/22/16 09:00 History 1 Mucinex Dm ER 1,200-60 mg Tab 1 tab PO BID 08/22/16 08/22/16 08/22/16 09:00 History 1 Oseltamivir [Tamiflu] 75 mg PO BID 08/22/16 08/22/16 08/22/16 09:00 History 1 Pnv95/Ferrous Fumarate/FA 1 each PO DAILY 08/22/16 08/22/16 08/22/16 09:00 History [Prenavite Tablet] 1 Ranitidine HCl [Acid Control] 150 mg PO BID 08/22/16 08/22/16 08/22/16 09:00 History 1 Ferrous Sulfate [Feosol 325 MG tab] 325 mg PO BID #60 tablet 09/05/16 Unknown Rx oxyCODONE /ACETAMINOPHEN [Percocet 1 tab PO Q6HR PRN #30 tablet 09/05/16 Unknown Rx 5/325] Zolpidem [Ambien] 10 mg PO QHS #7 tab 09/09/16 Unknown Rx Sulfamethoxazole/Trimethoprim 1 each PO BID #20 tablet 09/14/16 Unknown Rx [Bactrim DS TAB] ED Physical Exam - General Limitations: No Limitations General appearance: alert, in no apparent distress - Head Head exam: Present: atraumatic, normocephalic, normal inspection - Eye Eye exam: Present: normal appearance, PERRL, EOMI. Absent: periorbital swelling , periorbital tenderness Pupils: Present: normal accommodation - Neck Neck exam: Present: normal inspection, full ROM. Absent: tenderness, meningismus, lymphadenopathy - Respiratory Respiratory exam: Present: normal lung sounds bilaterally. Absent: respiratory distress, chest wall tenderness - Cardiovascular Cardiovascular Exam: Present: normal rhythm, tachycardia, normal heart sounds - GI/Abdominal GI/Abdominal exam: Present: soft, tenderness (pelvic area at wound site), normal bowel sounds. Absent: distended, guarding, rebound, mass - Expanded GI/Abdominal Exam Expanded GI/Abdominal exam: Absent: ascites - Extremities Exam Extremities exam: Present: normal inspection, full ROM, normal capillary refill , pedal edema (bilateral lower extremity including feet swollen). Absent: tenderness, calf tenderness - Back Exam Back exam: Present: normal inspection, full ROM. Absent: tenderness, CVA tenderness (R), CVA tenderness (L), muscle spasm, paraspinal tenderness, vertebral tenderness, rash noted - Neurological Exam Neurological exam: Present: alert, oriented X3, normal gait, reflexes normal. Absent: motor sensory deficit - Psychiatric Psychiatric exam: Present: normal affect, normal mood - Skin Skin exam: Present: warm, dry, intact, other (postsurgical wound) - Expanded Skin Exam Expanded Distribution of rash: abdomen (Transverse wound to pelvic area with dehiscence to rt distal wound.) Description of rash: Present: tenderness, erythematous, discharge (copiuos amount of yellow drainage). Absent: fluctuant, indurated ED Course Vital Signs 09/14/16 09/14/16 09/14/16 11:28 15:52 16:00 Temperature 98.8 F Pulse Rate 147 H 60 Respiratory 18 17 Rate Blood Pressure 173/84 Blood Pressure [Left] O2 Sat by Pulse 100 100 100 Oximetry 09/14/16 09/14/16 16:07 16:08 Temperature 98.6 F Pulse Rate 63 Respiratory 18 18 Rate Blood Pressure Blood Pressure 170/87 [Left] O2 Sat by Pulse 100 100 Oximetry Vital Signs 09/14/16 09/14/16 09/14/16 11:28 15:52 16:00 Temperature 98.8 F Pulse Rate 147 H 60 Respiratory 18 17 Rate Blood Pressure 173/84 Blood Pressure [Left] O2 Sat by Pulse 100 100 100 Oximetry 09/14/16 09/14/16 16:07 16:08 Temperature 98.6 F Pulse Rate 63 Respiratory 18 18 Rate Blood Pressure Blood Pressure 170/87 [Left] O2 Sat by Pulse 100 100 Oximetry - Reevaluation(s) Reevaluation #1: 09/14/16 17:26 Patient stable and awaiting [employer] cold pack. Reevaluation #2: 09/14/16 18:[address] Sebastián Escalante and updated her on patient condition. She reported that patient is Keflex for wound infection. She also reported that patient wound has been draining large amounts of fluid. She also informed me that patient went care physician first time today. Patient vital signs are stable and she is not in any pain. Reevaluation #3: 09/14/16 19:22 Patient is stable and awaiting CT results. Reevaluation #4: 09/14/16 21:26 Patient remained stable. - Consultations Consultation #1: 09/14/16 17:50 Dr. Hidalgo ED Medical Decision Making - Lab Data Result diagrams: 09/14/16 12:55 09/14/16 12:55 Vital Signs 09/14/16 09/14/16 09/14/16 11:28 15:52 16:00 Temperature 98.8 F Pulse Rate 147 H 60 Respiratory 18 17 Rate Blood Pressure 173/84 Blood Pressure [Left] O2 Sat by Pulse 100 100 100 Oximetry 09/14/16 09/14/16 16:07 16:08 Temperature 98.6 F Pulse Rate 63 Respiratory 18 18 Rate Blood Pressure Blood Pressure 170/87 [Left] O2 Sat by Pulse 100 100 Oximetry - Radiology Data Radiology results: report reviewed CT scan of the abdomen and pelvis with IV contrast reveals subcutaneous soft tissue of the infra-umbilical fat consistent with recent surgery, also with his sister is not provided. The uterine cavity is distended with fluid. This may be provided also infection is not excluded Partially loculated fluid collection in the cul-de-sac. Medium sized bilateral pleural effusions with associated atelectasis. Patient is not having any shortness of breath or chest pain. - Medical Decision Making I calloborated with Dr Murrieta on patient DX, labs results, diagnostic test and clinical findings. Decision made to discharge patient to F/U with Dr. Basilio Escalante. ED course: [facility] for evaluation of postsurgical wound was copiously Irwin is drainage and infection. CT scan of the abdomen and pelvis with angiography contrast reveals subcutaneous soft tissue of the infra- umbilical fat consistent with recent surgery, also with his sister is not provided. The uterine cavity is distended with fluid. This may be provided also infection is not excluded Partially loculated fluid collection in the cul-de-sac. Medium sized bilateral pleural effusions with associated atelectasis. Patient is not having any shortness of breath or chest pain. Results were discussed with patient. BNP elevated and albumin low . Her blood pressure and heart rate has normalized. Dr. Sebastián Escalante patient [employer] and she informed me that the patient has been having large amount of drainage since her surgery and this is not new. She has instructed me that she place patient on Keflex recently prior to discharge from hospital last Wednesday. CT scan and lab results discussed with patient and family. I Discussed with them that patient will need to follow -up with Dr. Sebastián Escalante in 1-2 days. Wound care done by RN. Patient discharged home to discontinue Keflex and start Bactrim due to urinary tract infection. Distal causes infection and UTI. - Differential Diagnosis postsurgical abscess, wound infection Critical care attestation.: If time is entered above; I have spent that time in minutes in the direct care of this critically ill patient, excluding procedure time. ED Disposition Clinical Impression: Pleural effusion, Atelectasis, Acute cystitis with hematuria Cellulitis, wound, post-operative Qualifiers: Encounter type: sequela Qualified Code(s): T81.4XXS - Infection following a procedure, sequela Wound dehiscence, surgical Qualifiers: Encounter type: sequela Qualified Code(s): T81.31XS - Disruption of external operation (surgical) wound, not elsewhere classified, sequela Disposition: DISCHARGED TO HOME OR SELFCARE Is pt being admited?: No Does the pt Need Aspirin: No Condition: Stable Instructions: Cellulitis (ED), Surgical Site Infections (ED), Wound Healing and Your Diet (ED), Wound Infection (ED), Urinary Tract Infection in Women (ED) Additional Instructions: Please followup with Dr Mckenzie in A.M Please stop Keflex and start Bactrim DS this will cover Urinary tract infection and wound infection. Keep affected area clean and dry. Prescriptions: Sulfamethoxazole/Trimethoprim [Bactrim DS TAB] 1 each PO BID #20 tablet Referrals: RAZIA ESCALANTE MD [Staff Physician] - [facility], [Primary Care Provider] - 09/16/16 Forms: Accompanied Note, Work/School Release Form(ED) Print Language: HEBREW
--- NOTE | 2016-09-14 19:59 | Cat Scan Report ---
FINAL REPORT EXAM: CT ABDOMEN PELVIS W CON HISTORY: post surgical wound drainage and infection TECHNIQUE: Helical CT scan through the abdomen and pelvis during bolus injection of iodinated contrast. Images are reconstructed in the sagittal and coronal planes. Oral contrast was not given. PRIORS: None. FINDINGS: Images through the lung bases show medium-sized bilateral pleural effusions and associated bibasilar subsegmental atelectasis. The liver, gallbladder, pancreas, spleen and adrenal glands appear normal. The kidneys appear normal. There are air bubbles in the subcutaneous soft tissues of the infraumbilical fat consistent with recent surgery, probably a although this history is not provided. The uterine cavity is distended with fluid. The fluid collection measures 6.9 cm transverse x 6.0 cm AP x 8.5 cm craniocaudal. There is a fluid collection in the cul de sac measuring 9.2 cm transverse x 2.4 cm AP x 4.0 cm craniocaudal. It appears to be partially loculated. The stomach appears grossly within normal limits. There are no abnormally dilated loops of bowel or acute inflammatory changes. A normal-appearing appendix is identified. The abdominal aorta has a normal diameter. IMPRESSION: 1. Postsurgical changes most likely secondary to recent . 2. The uterine cavity is distended with fluid. This may be blood although infection is not excluded. 3. Partially loculated fluid collection in the cul de sac. 4. Medium-sized bilateral pleural effusions with associated atelectasis
[2016-09-14 23:30] VITALS: BP 145/81
== END 2016-09-14 22:56 | disposition home or self-care (01) ==
LOC: ED 10:31
DX: T81.31XS Disruption of external operation (surgical) wound, not elsewhere classified, sequela (principal); T81.4XXS Infection following a procedure, sequela; N30.01 Acute cystitis with hematuria; J98.11 Atelectasis; J90 Pleural effusion, not elsewhere classified
CPT/HCPCS: 36415; 74177; 80053; 81001; 82140; 82805; 83880; 85025; 85610; 87040; 99284; Q9967